=== PATIENT | female | born 1960 | race Caucasian/White ===

== ENCOUNTER 2018-10-06 16:06 | Inpatient (IN) | payer OTHER ==
--- OUTSIDE RECORDS SUMMARY | 2018-10-06 16:08 | XMS REPORT | Clinical Summary ---
:1960 Author Organization [facility] Address [address] [place] [address] Care Team Providers Name Role Phone Cierra Primary Care Provider Allergies Active Allergy Reactions Severity Noted Date Comments Chlorhexidine Itching High 07/27/2017 new Medical Supply, Miscellaneous Itching High 07/27/2017 New allergic reaction Medications Medication Sig Dispensed Refills Start Date End Date Status albuterol HFA Inhale 1 puff by 0 Active (VENTOLIN HFA) 90 mouth via inhaler mcg/actuation every 6 (six) inhaler hours as needed for Wheezing. thiamine (VITAMIN Take 100 mg by 0 Active B-1) 100 MG tablet mouth daily. folic acid (FOLVITE) Take 1 mg by 0 Active 1 MG tablet mouth daily. acetaminophen-codein Take 1 tablet by 30 tablet 0 08/01/2017 Active e (TYLENOL #3) mouth every 6 300-30 mg per tablet (six) hours as needed for Pain. Max Daily Amount: 4 tablets gabapentin Take 0.5 tablets 45 tablet 0 08/01/2017 Active (NEURONTIN) 800 MG (400 mg total) by tablet mouth 3 (three) times daily. metoprolol Take 1 tablet (25 60 tablet 0 08/01/2017 Active (LOPRESSOR) 25 MG mg total) by tablet mouth 2 (two) times daily. aspirin 81 MG Take 1 tablet (81 30 tablet 0 08/02/2017 08/02/2018 chewable tablet mg total) by mouth daily. atorvastatin Take 1 tablet (40 30 tablet 0 08/01/2017 08/01/2018 (LIPITOR) 40 MG mg total) by tablet mouth nightly. ferrous sulfate 325 Take 1 tablet 30 tablet 0 08/01/2017 08/01/2018 (65 FE) MG tablet (325 mg total) by mouth daily with breakfast You may take this over the counter if you wish. furosemide (LASIX) Take 1 tablet (20 30 tablet 0 08/02/2017 08/02/2018 20 MG tablet mg total) by mouth daily. potassium chloride Take 1 tablet (20 30 tablet 0 08/02/2017 08/02/2018 SA (K-DUR,KLOR-CON) mEq total) by 20 MEQ tablet mouth daily Take with food. Active Problems Problem Noted Date S/P CABG x 3 07/27/2017 Acute pulmonary insufficiency following thoracic surgery 07/27/2017 Postoperative anemia due to acute blood loss 07/27/2017 Acute pulmonary edema 07/27/2017 Atelectasis of both lungs 07/27/2017 ACBx3 (Dr. Grimes, 07.27.17) 07/26/2017 Social History Tobacco Use Types Packs/Day Years Used Date Never Assessed Sex Assigned at Date Recorded Not on file Job Start Date Occupation Industry Not on file Not on file Not on file Travel History Travel Start Travel End No recent travel history available. Last Filed Vital Signs Not on file Plan of Treatment Not on file Results Not on fileafter 10/05/2017 Insurance Payer Benefit Plan / Group Subscriber ID Type Phone Address [facility] x[facility]xxx H[facility]/POS [phone] CHOICE EXCHANGE ([place]) [place] [address] Advance Directives For more information, please contact:[address] [phone] Code Status Date Activated Date Inactivated Comments Full Code 07/26/2017 12:42 PM 08/01/2017 4:52 PM This code status was determined by: Patient Full Code 07/26/2017 1:51 AM 07/26/2017 12:42 PM This code status was determined by: Patient
--- OUTSIDE RECORDS SUMMARY | 2018-10-06 16:10 | XMS REPORT ---
:1960 Author Organization [facility] Address [address] [place] [address] Care Team Providers Name Role Phone JOSE A FLEMING Unavailable Unavailable Problems This patient has no known problems. Allergies, Adverse Reactions, Alerts This patient has no known allergies or adverse reactions. Medications This patient has no known medications. Results Test Description Test Time Test Comments Text Results Atomic Results Result Comments ADAM PAUL PA 2017-08-01 09:05:00 Reason for FINAL REPORT PATIENT ID: OR AP, 1 VIEW exam:->post-op [id number] Chest one view. Clinical history: post-op Comparison: July 28, 2017 Discussion: A frontal chest is provided. Cardiomediastinal contours are unchanged. Right IJ line has been removed. There is patchy retrocardiac opacity is slightly improved since the previous exam. A small left effusion is present. No pneumothorax. Signed: Hemant Paige Verified Date/Time: 08/01/2017 09:05:03 Reading Location: [facility] Radiology Reading Room ESIUM 2017-08-01 06:58:00 Test Item Value Reference Range Comments MAGNESIUM (BEAKER) (test xrcx=221) 1.8 mg/dL 1.6-2.6 CBC W/PLT COUNT & AUTO [id number] 05:44:00 Test Item Value Reference Range Comments WHITE BLOOD CELL COUNT (BEAKER) (test nech=855) 6.1 K/ L 3.5-10.5 RED BLOOD CELL COUNT (BEAKER) (test lxte=708) 2.67 M/ L 3.93-5.22 HEMOGLOBIN (BEAKER) (test pybi=735) 8.5 GM/DL 11.2-15.7 HEMATOCRIT (BEAKER) (test sfcg=878) 25.3 % 34.1-44.9 MEAN CORPUSCULAR VOLUME (BEAKER) (test sraf=816) 94.8 fL 79.4-94.8 MEAN CORPUSCULAR HEMOGLOBIN (BEAKER) (test 31.8 pg 25.6-32.2 aiau=667) MEAN CORPUSCULAR HEMOGLOBIN CONC (BEAKER) (test 33.6 GM/DL 32.2-35.5 leoz=124) RED CELL DISTRIBUTION WIDTH (BEAKER) (test 13.6 % 11.7-14.4 fbwd=923) PLATELET COUNT (BEAKER) (test urae=591) 329 K/CU MM 150-450 MEAN PLATELET VOLUME (BEAKER) (test ncwm=446) 10.2 fL 9.4-12.3 NUCLEATED RED BLOOD CELLS (BEAKER) (test 0 /100 WBC 0-0 umqu=618) NEUTROPHILS RELATIVE PERCENT (BEAKER) (test 72 % lztj=408) LYMPHOCYTES RELATIVE PERCENT (BEAKER) (test 18 % rpct=203) MONOCYTES RELATIVE PERCENT (BEAKER) (test 7 % nuqs=539) EOSINOPHILS RELATIVE PERCENT (BEAKER) (test 3 % okvm=902) BASOPHILS RELATIVE PERCENT (BEAKER) (test 0 % wczk=824) NEUTROPHILS ABSOLUTE COUNT (BEAKER) (test 4.39 K/ L 1.56-6.13 ejuf=170) LYMPHOCYTES ABSOLUTE COUNT (BEAKER) (test 1.11 K/ L 1.18-3.74 ybai=365) MONOCYTES ABSOLUTE COUNT (BEAKER) (test 0.42 K/ L 0.24-0.36 mpoq=903) EOSINOPHILS ABSOLUTE COUNT (BEAKER) (test 0.16 K/ L 0.04-0.36 obei=957) BASOPHILS ABSOLUTE COUNT (BEAKER) (test 0.02 K/ L 0.01-0.08 jfee=885) IMMATURE GRANULOCYTES-RELATIVE PERCENT (BEAKER) 0 % 0-1 (test qrtj=8976) CBC W/PLT COUNT & AUTO [id number] 07:13:00 Test Item Value Reference Range Comments WHITE BLOOD CELL COUNT (BEAKER) (test qncw=133) 7.0 K/ L 3.5-10.5 RED BLOOD CELL COUNT (BEAKER) (test gtgd=209) 2.61 M/ L 3.93-5.22 HEMOGLOBIN (BEAKER) (test mehw=191) 8.4 GM/DL 11.2-15.7 HEMATOCRIT (BEAKER) (test kxtp=464) 24.6 % 34.1-44.9 MEAN CORPUSCULAR VOLUME (BEAKER) (test ywwc=097) 94.3 fL 79.4-94.8 MEAN CORPUSCULAR HEMOGLOBIN (BEAKER) (test 32.2 pg 25.6-32.2 nhzb=747) MEAN CORPUSCULAR HEMOGLOBIN CONC (BEAKER) (test 34.1 GM/DL 32.2-35.5 zmlu=891) RED CELL DISTRIBUTION WIDTH (BEAKER) (test 13.7 % 11.7-14.4 dbsa=754) PLATELET COUNT (BEAKER) (test kqci=786) 322 K/CU MM 150-450 MEAN PLATELET VOLUME (BEAKER) (test jarr=281) 10.1 fL 9.4-12.3 NUCLEATED RED BLOOD CELLS (BEAKER) (test 0 /100 WBC 0-0 ctui=722) NEUTROPHILS RELATIVE PERCENT (BEAKER) (test 76 % yjnq=880) LYMPHOCYTES RELATIVE PERCENT (BEAKER) (test 14 % bwyw=413) MONOCYTES RELATIVE PERCENT (BEAKER) (test 7 % pcgf=809) EOSINOPHILS RELATIVE PERCENT (BEAKER) (test 3 % wujw=007) BASOPHILS RELATIVE PERCENT (BEAKER) (test 1 % gzmh=395) NEUTROPHILS ABSOLUTE COUNT (BEAKER) (test 5.26 K/ L 1.56-6.13 phua=831) LYMPHOCYTES ABSOLUTE COUNT (BEAKER) (test 0.98 K/ L 1.18-3.74 ixbg=583) MONOCYTES ABSOLUTE COUNT (BEAKER) (test 0.46 K/ L 0.24-0.36 hguh=188) EOSINOPHILS ABSOLUTE COUNT (BEAKER) (test 0.19 K/ L 0.04-0.36 zdah=439) BASOPHILS ABSOLUTE COUNT (BEAKER) (test 0.04 K/ L 0.01-0.08 qxjp=638) IMMATURE GRANULOCYTES-RELATIVE PERCENT (BEAKER) 0 % 0-1 (test ocxz=4167) [id number] 04:08:00 Test Item Value Reference Range Comments MAGNESIUM (BEAKER) (test vnno=963) 1.3 mg/dL 1.6-2.6 BASIC METABOLIC [id number] 04:08:00 Test Item Value Reference Range Comments SODIUM (BEAKER) (test 129 meq/L 136-145 oqwx=013) POTASSIUM (BEAKER) (test 3.8 meq/L 3.5-5.1 hfpf=674) CHLORIDE (BEAKER) (test 97 meq/L 98-107 ftwz=123) CO2 (BEAKER) (test 24 meq/L 22-29 qsxs=390) BLOOD UREA NITROGEN 8 mg/dL 7-21 (BEAKER) (test gtft=838) CREATININE (BEAKER) (test 0.73 mg/dL 0.57-1.25 xsaj=501) GLUCOSE RANDOM (BEAKER) 138 mg/dL 70-105 (test ubbq=280) CALCIUM (BEAKER) (test 8.7 mg/dL 8.4-10.2 zvhw=665) EGFR (BEAKER) (test 82 mL/min/1.73 sq m ESTIMATED GFR IS NOT ojuv=5719) ACCURATE CREATININE CLEARANCE IN PREDICTING GLOMERULAR FILTRATION RATE. ESTIMATED GFR IS NOT APPLICABLE FOR DIALYSIS PATIENTS. POCT-GLUCOSE [id number] 12:53:00 Test Item Value Reference Range Comments POC-GLUCOSE METER (BEAKER) 192 mg/dL 70-110 TESTED AT [address] (test kgkf=9357) [place] [id number] POCT-GLUCOSE [id number] 07:54:00 Test Item Value Reference Range Comments POC-GLUCOSE METER (BEAKER) 129 mg/dL 70-110 TESTED AT [address] (test sjgp=2436) [facility] [address] BASIC METABOLIC [id number] 05:37:00 Test Item Value Reference Range Comments SODIUM (BEAKER) (test 129 meq/L 136-145 tivp=833) POTASSIUM (BEAKER) (test 3.2 meq/L 3.5-5.1 gsry=536) CHLORIDE (BEAKER) (test 96 meq/L 98-107 ndjg=132) CO2 (BEAKER) (test 24 meq/L 22-29 kvfs=399) BLOOD UREA NITROGEN 10 mg/dL 7-21 (BEAKER) (test vish=558) CREATININE (BEAKER) (test 0.79 mg/dL 0.57-1.25 hfol=451) GLUCOSE RANDOM (BEAKER) 119 mg/dL 70-105 (test zkdk=204) CALCIUM (BEAKER) (test 8.9 mg/dL 8.4-10.2 rjds=831) EGFR (BEAKER) (test 75 mL/min/1.73 sq m ESTIMATED GFR IS NOT bcpa=7865) ACCURATE CREATININE CLEARANCE IN PREDICTING GLOMERULAR FILTRATION RATE. ESTIMATED GFR IS NOT APPLICABLE FOR DIALYSIS PATIENTS. CBC W/PLT COUNT & AUTO [id number] 05:07:00 Test Item Value Reference Range Comments WHITE BLOOD CELL COUNT (BEAKER) (test mdkw=034) 7.6 K/ L 3.5-10.5 RED BLOOD CELL COUNT (BEAKER) (test honu=687) 2.48 M/ L 3.93-5.22 HEMOGLOBIN (BEAKER) (test rzfm=557) 7.8 GM/DL 11.2-15.7 HEMATOCRIT (BEAKER) (test ailj=060) 22.9 % 34.1-44.9 MEAN CORPUSCULAR VOLUME (BEAKER) (test txfa=529) 92.3 fL 79.4-94.8 MEAN CORPUSCULAR HEMOGLOBIN (BEAKER) (test 31.5 pg 25.6-32.2 brwn=650) MEAN CORPUSCULAR HEMOGLOBIN CONC (BEAKER) (test 34.1 GM/DL 32.2-35.5 hosc=209) RED CELL DISTRIBUTION WIDTH (BEAKER) (test 14.0 % 11.7-14.4 zkcc=608) PLATELET COUNT (BEAKER) (test igcz=397) 286 K/CU MM 150-450 MEAN PLATELET VOLUME (BEAKER) (test ojhn=634) 10.1 fL 9.4-12.3 NUCLEATED RED BLOOD CELLS (BEAKER) (test 0 /100 WBC 0-0 mmst=941) NEUTROPHILS RELATIVE PERCENT (BEAKER) (test 76 % lead=218) LYMPHOCYTES RELATIVE PERCENT (BEAKER) (test 13 % qyow=706) MONOCYTES RELATIVE PERCENT (BEAKER) (test 8 % hwpd=509) EOSINOPHILS RELATIVE PERCENT (BEAKER) (test 2 % duoj=747) BASOPHILS RELATIVE PERCENT (BEAKER) (test 1 % ijhe=458) NEUTROPHILS ABSOLUTE COUNT (BEAKER) (test 5.75 K/ L 1.56-6.13 tnhc=543) LYMPHOCYTES ABSOLUTE COUNT (BEAKER) (test 0.98 K/ L 1.18-3.74 ctjp=330) MONOCYTES ABSOLUTE COUNT (BEAKER) (test 0.64 K/ L 0.24-0.36 fliy=781) EOSINOPHILS ABSOLUTE COUNT (BEAKER) (test 0.16 K/ L 0.04-0.36 lwta=003) BASOPHILS ABSOLUTE COUNT (BEAKER) (test 0.04 K/ L 0.01-0.08 sihq=533) IMMATURE GRANULOCYTES-RELATIVE PERCENT (BEAKER) 1 % 0-1 (test xfyj=4186) POCT-GLUCOSE [id number] 21:03:00 Test Item Value Reference Range Comments POC-GLUCOSE METER (BEAKER) 239 mg/dL 70-110 TESTED AT [address] (test vvsm=1661) [place] [address] POCT-GLUCOSE [id number] 17:20:00 Test Item Value Reference Range Comments POC-GLUCOSE METER (BEAKER) 201 mg/dL 70-110 TESTED AT [address] (test rocm=5093) [place] [address] HEMOGLOBIN AND [id number] 16:41:00 Test Item Value Reference Range Comments HEMOGLOBIN (BEAKER) (test esob=466) 9.8 GM/DL 11.2-15.7 HEMATOCRIT (BEAKER) (test xslr=087) 29.3 % 34.1-44.9 Draw after transfusion has been completed.POCT-GLUCOSE [id number] 12:59:00 Test Item Value Reference Range Comments POC-GLUCOSE METER (BEAKER) 133 mg/dL 70-110 TESTED AT [address] (test mcae=0460) [place] [address] URINE [id number] 11:53:00 Test Item Value Reference Range Comments CULTURE (BEAKER) (test nkcx=3110) No growth POCT-GLUCOSE [id number] 09:34:00 Test Item Value Reference Range Comments POC-GLUCOSE METER (BEAKER) 97 mg/dL 70-110 TESTED AT [address] (test vcff=9803) [place] [address] CBC W/PLT COUNT & AUTO [id number] 05:55:00 Test Item Value Reference Range Comments WHITE BLOOD CELL COUNT (BEAKER) (test iohu=658) 9.1 K/ L 3.5-10.5 RED BLOOD CELL COUNT (BEAKER) (test vtdx=200) 2.11 M/ L 3.93-5.22 HEMOGLOBIN (BEAKER) (test stba=678) 6.8 GM/DL 11.2-15.7 HEMATOCRIT (BEAKER) (test symq=216) 20.2 % 34.1-44.9 MEAN CORPUSCULAR VOLUME (BEAKER) (test spqo=348) 95.7 fL 79.4-94.8 MEAN CORPUSCULAR HEMOGLOBIN (BEAKER) (test 32.2 pg 25.6-32.2 zypz=496) MEAN CORPUSCULAR HEMOGLOBIN CONC (BEAKER) (test 33.7 GM/DL 32.2-35.5 pbqi=056) RED CELL DISTRIBUTION WIDTH (BEAKER) (test 13.7 % 11.7-14.4 sfza=338) PLATELET COUNT (BEAKER) (test msbe=407) 280 K/CU MM 150-450 MEAN PLATELET VOLUME (BEAKER) (test nujs=410) 10.3 fL 9.4-12.3 NUCLEATED RED BLOOD CELLS (BEAKER) (test 0 /100 WBC 0-0 dwpb=842) NEUTROPHILS RELATIVE PERCENT (BEAKER) (test 77 % cywe=741) LYMPHOCYTES RELATIVE PERCENT (BEAKER) (test 11 % tphc=558) MONOCYTES RELATIVE PERCENT (BEAKER) (test 10 % qaxy=894) EOSINOPHILS RELATIVE PERCENT (BEAKER) (test 2 % rtke=658) BASOPHILS RELATIVE PERCENT (BEAKER) (test 0 % ahwh=674) NEUTROPHILS ABSOLUTE COUNT (BEAKER) (test 7.01 K/ L 1.56-6.13 sxed=130) LYMPHOCYTES ABSOLUTE COUNT (BEAKER) (test 0.98 K/ L 1.18-3.74 gfbn=804) MONOCYTES ABSOLUTE COUNT (BEAKER) (test 0.89 K/ L 0.24-0.36 ynkj=915) EOSINOPHILS ABSOLUTE COUNT (BEAKER) (test 0.19 K/ L 0.04-0.36 dzlt=598) BASOPHILS ABSOLUTE COUNT (BEAKER) (test 0.01 K/ L 0.01-0.08 bnuh=594) IMMATURE GRANULOCYTES-RELATIVE PERCENT (BEAKER) 1 % 0-1 (test badj=5542) BASIC METABOLIC [id number] 05:53:00 Test Item Value Reference Range Comments SODIUM (BEAKER) (test 129 meq/L 136-145 jkgh=760) POTASSIUM (BEAKER) (test 3.4 meq/L 3.5-5.1 iico=885) CHLORIDE (BEAKER) (test 96 meq/L 98-107 butt=446) CO2 (BEAKER) (test 22 meq/L 22-29 zvmt=991) BLOOD UREA NITROGEN 12 mg/dL 7-21 (BEAKER) (test ujun=328) CREATININE (BEAKER) (test 0.74 mg/dL 0.57-1.25 qigc=455) GLUCOSE RANDOM (BEAKER) 86 mg/dL 70-105 (test mfyq=688) CALCIUM (BEAKER) (test 9.2 mg/dL 8.4-10.2 kcsu=986) EGFR (BEAKER) (test 81 mL/min/1.73 sq m ESTIMATED GFR IS NOT eich=3303) ACCURATE CREATININE CLEARANCE IN PREDICTING GLOMERULAR FILTRATION RATE. ESTIMATED GFR IS NOT APPLICABLE FOR DIALYSIS PATIENTS. POCT-GLUCOSE [id number] 21:23:00 Test Item Value Reference Range Comments POC-GLUCOSE METER (BEAKER) 142 mg/dL 70-110 TESTED AT [address] (test koyg=7990) [facility] [address] RAD, CHEST, 1 VIEW, NON [id number] 15:31:00Reason for exam:->post ct removalFINAL REPORT TECHNIQUE: Frontal chest radiograph dated 07/28/2017. CLINICAL HISTORY: Post CT removal COMPARISON STUDY: Chest radiograph performed earlier the same day IMPRESSION:Left-sided chest tubes been removed. Right internal jugular venous catheter is unchanged. There is atubular structure projected over the right axilla, possibly a PICC. Left lung base opacity and pleural effusion are stable. No pneumothorax. Cardiomediastinal silhouette is normal in size. No pulmonaryedema. Midline sternotomy wires are intact and well aligned. Degenerative changes are seen in the spine. Signed: Alejandra Luiseport Verified Date/Time: 07/28/2017 15:31:00 Reading Location: [facility] Radiology Reading Room POCT-GLUCOSE [id number] 12:12:00 Test Item Value Reference Range Comments POC-GLUCOSE METER (BEAKER) 100 mg/dL 70-[address] [facility] [address] [facility] (test atuc=6144) [facility] [address] POCT-GLUCOSE [id number] 06:41:00 Test Item Value Reference Range Comments POC-GLUCOSE METER (BEAKER) 143 mg/dL 70-[address] [facility] [address] [facility] (test aozv=0803) [facility] [address] RAD, CHEST, 1 VIEW, NON [id number] 05:13:00Reason for exam:->Post opShould this be performed at the bedside?->YesFINAL REPORT RAD, CHEST, 1 VIEW, NON DEPT INDICATION: Post op COMPARISON: Prior day' s exam FINDINGS: Portable frontal view of the chest. IMPRESSION: Support Lines: Interval extubation and removal of enteric tube. Remaining support hardware is stable. Lungs and pleura: Decreased lung volumes resulting in basilar subsegmental atelectasis and central vascular crowding. No new focal or lobar consolidation. Trace left effusion. Questionable trace left apical pneumothorax.Heart and mediastinum: Stable contours. Stable surgical changes.Additional findings: None. Signed: JR Fernandes Robert MDReport Verified Date/Time: 07/28/2017 05:13:19 Reading Location: [address] Body Reading Room BLOOD GAS, [id number] 05:03:00 Test Item Value Reference Range Comments PH ARTERIAL (BEAKER) (test puba=716) 7.39 7.35-7.45 PCO2 ARTERIAL (BEAKER) (test wqpf=481) 39 mmHg 35-45 PO2 ARTERIAL (BEAKER) (test gqkf=224) 105 mmHg 80-90 O2 SATURATION ARTERIAL (BEAKER) (test gqye=100) 97.9 % 96.0-97.0 HCO3 ARTERIAL (BEAKER) (test tbax=849) 23 mmol/L 21-29 BASE EXCESS ARTERIAL (BEAKER) (test abht=955) -1.8 mmol/L -2.0-3.0 PATIENT TEMPERATURE (BEAKER) (test qglp=8939) 36.6 C FIO2 (BEAKER) (test zphf=1375) 36.0 % [id number] 04:52:00 Test Item Value Reference Range Comments PROTIME (BEAKER) (test ulyy=219) 14.9 seconds 11.7-14.7 INR (BEAKER) (test wxxm=699) 1.2 <=5.9 PARTIAL THROMBOPLASTIN TIME (BEAKER) (test 36.9 seconds 22.5-36.0 afxy=064) RECOMMENDED COUMADIN/WARFARIN INR THERAPY RANGESSTANDARD DOSE: 2.0 - 3.0 Includes: PROPHYLAXIS forvenous thrombosis, systemic embolization; TREATMENT for venous thrombosis and/or pulmonary embolus.HIGH RISK: Target INR is 2.5-3.5 for patients with mechanical heart valves.[id number] 04:39:00 Test Item Value Reference Range Comments MAGNESIUM (BEAKER) (test tdfy=210) 1.9 mg/dL 1.6-2.6 BASIC METABOLIC [id number] 04:39:00 Test Item Value Reference Range Comments SODIUM (BEAKER) (test 134 meq/L 136-145 ncuk=541) POTASSIUM (BEAKER) (test 4.0 meq/L 3.5-5.1 hzrg=186) CHLORIDE (BEAKER) (test 103 meq/L 98-107 tssp=020) CO2 (BEAKER) (test 23 meq/L 22-29 ugjc=060) BLOOD UREA NITROGEN 14 mg/dL 7-21 (BEAKER) (test hdih=810) CREATININE (BEAKER) (test 0.81 mg/dL 0.57-1.25 stcx=711) GLUCOSE RANDOM (BEAKER) 148 mg/dL 70-105 (test zwxy=926) CALCIUM (BEAKER) (test 9.4 mg/dL 8.4-10.2 pkhx=951) EGFR (BEAKER) (test 73 mL/min/1.73 sq m ESTIMATED GFR IS NOT fkhs=5398) ACCURATE CREATININE CLEARANCE IN PREDICTING GLOMERULAR FILTRATION RATE. ESTIMATED GFR IS NOT APPLICABLE FOR DIALYSIS PATIENTS. CBC W/PLT COUNT & AUTO [id number] 04:24:00 Test Item Value Reference Range Comments WHITE BLOOD CELL COUNT (BEAKER) (test doof=625) 7.9 K/ L 3.5-10.5 RED BLOOD CELL COUNT (BEAKER) (test cfxh=945) 2.49 M/ L 3.93-5.22 HEMOGLOBIN (BEAKER) (test styb=855) 7.9 GM/DL 11.2-15.7 HEMATOCRIT (BEAKER) (test vjay=400) 23.6 % 34.1-44.9 MEAN CORPUSCULAR VOLUME (BEAKER) (test wmca=993) 94.8 fL 79.4-94.8 MEAN CORPUSCULAR HEMOGLOBIN (BEAKER) (test 31.7 pg 25.6-32.2 wswt=669) MEAN CORPUSCULAR HEMOGLOBIN CONC (BEAKER) (test 33.5 GM/DL 32.2-35.5 zicg=533) RED CELL DISTRIBUTION WIDTH (BEAKER) (test 15.1 % 11.7-14.4 sksa=198) PLATELET COUNT (BEAKER) (test cfea=509) 284 K/CU MM 150-450 MEAN PLATELET VOLUME (BEAKER) (test xskf=451) 10.1 fL 9.4-12.3 NUCLEATED RED BLOOD CELLS (BEAKER) (test 0 /100 WBC 0-0 oatr=230) NEUTROPHILS RELATIVE PERCENT (BEAKER) (test 77 % soat=355) LYMPHOCYTES RELATIVE PERCENT (BEAKER) (test 8 % zvxz=143) MONOCYTES RELATIVE PERCENT (BEAKER) (test 14 % gwzk=683) EOSINOPHILS RELATIVE PERCENT (BEAKER) (test 1 % cgqr=540) BASOPHILS RELATIVE PERCENT (BEAKER) (test 0 % tuwa=758) NEUTROPHILS ABSOLUTE COUNT (BEAKER) (test 6.04 K/ L 1.56-6.13 fwru=643) LYMPHOCYTES ABSOLUTE COUNT (BEAKER) (test 0.62 K/ L 1.18-3.74 xknu=861) MONOCYTES ABSOLUTE COUNT (BEAKER) (test 1.12 K/ L 0.24-0.36 pizn=028) EOSINOPHILS ABSOLUTE COUNT (BEAKER) (test 0.04 K/ L 0.04-0.36 rlfo=357) BASOPHILS ABSOLUTE COUNT (BEAKER) (test 0.02 K/ L 0.01-0.08 bjqn=510) IMMATURE GRANULOCYTES-RELATIVE PERCENT (BEAKER) 0 % 0-1 (test aeiq=7671) [id number] 01:03:00 Test Item Value Reference Range Comments POTASSIUM (BEAKER) (test qpah=952) 4.0 meq/L 3.5-5.1 [id number] 01:03:00 Test Item Value Reference Range Comments MAGNESIUM (BEAKER) (test wgaa=885) 2.0 mg/dL 1.6-2.6 POCT-GLUCOSE [id number] 01:01:00 Test Item Value Reference Range Comments POC-GLUCOSE METER (BEAKER) 150 mg/dL 70-110 TESTED AT [address] (test bfaz=0428) [facility] [address] HEMOGLOBIN AND [id number] 00:51:00 Test Item Value Reference Range Comments HEMOGLOBIN (BEAKER) (test qvap=897) 8.3 GM/DL 11.2-15.7 HEMATOCRIT (BEAKER) (test nejg=810) 24.0 % 34.1-44.9 CALCIUM, [id number] 00:48:00 Test Item Value Reference Range Comments CALCIUM IONIZED (BEAKER) (test oppy=112) 1.25 mmol/L 1.12-1.27 PH, BLOOD (BEAKER) (test hebi=3426) 7.39 BLOOD GAS, [id number] 20:03:00 Test Item Value Reference Range Comments PH ARTERIAL (BEAKER) (test gblg=012) 7.41 7.35-7.45 PCO2 ARTERIAL (BEAKER) (test tptm=730) 37 mmHg 35-45 PO2 ARTERIAL (BEAKER) (test ldhr=017) 103 mmHg 80-90 O2 SATURATION ARTERIAL (BEAKER) (test gvhg=024) 97.8 % 96.0-97.0 HCO3 ARTERIAL (BEAKER) (test jpeb=887) 23 mmol/L 21-29 BASE EXCESS ARTERIAL (BEAKER) (test qaio=095) -1.8 mmol/L -2.0-3.0 PATIENT TEMPERATURE (BEAKER) (test ncfr=9165) 36.7 C FIO2 (BEAKER) (test yqpq=3508) 32.0 % POCT-GLUCOSE [id number] 18:26:00 Test Item Value Reference Range Comments POC-GLUCOSE METER (BEAKER) 169 mg/dL 70-110 TESTED AT [address] (test frgj=4690) [facility] [address] BLOOD GAS, [id number] 16:32:00 Test Item Value Reference Range Comments PH ARTERIAL (BEAKER) (test gezq=589) 7.45 7.35-7.45 PCO2 ARTERIAL (BEAKER) (test shap=649) 32 mmHg 35-45 PO2 ARTERIAL (BEAKER) (test opxo=608) 155 mmHg 80-90 O2 SATURATION ARTERIAL (BEAKER) (test vkco=433) 99.1 % 96.0-97.0 HCO3 ARTERIAL (BEAKER) (test yofd=139) 22 mmol/L 21-29 BASE EXCESS ARTERIAL (BEAKER) (test saqk=154) -1.6 mmol/L -2.0-3.0 PATIENT TEMPERATURE (BEAKER) (test ynyk=8238) 36.7 C FIO2 (BEAKER) (test pgjl=2846) 40.0 % HEMOGLOBIN AND [id number] 15:45:00 Test Item Value Reference Range Comments HEMOGLOBIN (BEAKER) (test idhm=376) 8.9 GM/DL 11.2-15.7 HEMATOCRIT (BEAKER) (test sjdj=848) 25.6 % 34.1-44.9 FACTOR 10 [id number] 15:30:00 Test Item Value Reference Range Comments FACTOR X ACTIVITY (BEAKER) (test ropx=254) 79.0 % 70.0-120.0 [id number] 13:47:00 Test Item Value Reference Range Comments FIBRINOGEN LEVEL (BEAKER) (test puqk=489) 567 mg/dl 225-434 PROTHROMBIN TIME/[id number] 13:47:00 Test Item Value Reference Range Comments PROTIME (BEAKER) (test ohuy=050) 17.5 seconds 11.7-14.7 INR (BEAKER) (test bzpo=680) 1.4 <=5.9 RECOMMENDED COUMADIN/WARFARIN INR THERAPY RANGESSTANDARD DOSE: 2.0 - 3.0 Includes: PROPHYLAXIS forvenous thrombosis, systemic embolization; TREATMENT for venous thrombosis and/or pulmonary embolus.HIGH RISK: Target INR is 2.5-3.5 for patients with mechanical heart valves.[id number] 13:47:00 Test Item Value Reference Range Comments PARTIAL THROMBOPLASTIN TIME (BEAKER) (test 35.0 seconds 22.5-36.0 tiyn=906) RAD, CHEST, 1 VIEW, NON [id number] 13:16:00Reason for exam:->Post OpShould this be performed at the bedside?->YesFINAL REPORT Chest one view. Clinical history: Post Op Comparison: July 27, 2017 Discussion: A frontal chest is provided. Cardiomediastinal contours are unchanged. ETT is 3.5 cm above the joe. A feeding tube projects below the diaphragm. Right IJ line projects over theSVC. There is a left chest tube, and a mediastinal drain. Small patchy foci of opacities at the leftmid to lower lung likely reflects atelectasis. Right lung is clear. No vascular congestion, pneumothorax, or significant effusion. Status post median sternotomy. Signed: Hemant Paige MDReport Verified Date/Time: 07/27/2017 13:16:03 Reading Location: [address] Consult Reading Room Electronicallysigned by: HEMANT PAIGE M.D. on 07/27/2017 01:16 PMTHROMBOELASTOGRAPH (TEG)2017-07-27 12:58:00 Test Item Value Reference Range Comments TEG ACTIVATED CLOTTING TIME (BEAKER) (test 4.5 minutes 4.0-7.0 ewio=6574) TEG FIBRINOGEN ACTIVITY (BEAKER) (test 77.4 degrees 61.0-73.0 bzdl=4763) TEG PLT. AGGREGATION (BEAKER) (test okho=0696) 76.9 MM 55.0-65.0 TEG FIBRINOLYSIS (BEAKER) (test rjmg=0973) 0.0 % 0.0-5.0 TGH ACTIVATED CLOTTING TIME (BEAKER) (test 4.3 minutes 4.0-7.0 xgro=9047) [facility] FIBRINOGEN ACTIVITY (BEAKER) (test 75.7 degrees 61.0-73.0 ghst=2601) T[facility] PLT. AGGREGATION (BEAKER) (test lums=9408) 73.8 MM 55.0-65.0 [facility] FIBRINOLYSIS (BEAKER) (test mjys=9495) 0.0 % 0.0-5.0 CBC W/PLT COUNT & AUTO [id number] 12:37:00 Test Item Value Reference Range Comments WHITE BLOOD CELL COUNT (BEAKER) (test wxhb=549) 13.7 K/ L 3.5-10.5 RED BLOOD CELL COUNT (BEAKER) (test rffd=410) 2.29 M/ L 3.93-5.22 HEMOGLOBIN (BEAKER) (test fluj=597) 7.8 GM/DL 11.2-15.7 HEMATOCRIT (BEAKER) (test ahhg=357) 22.5 % 34.1-44.9 MEAN CORPUSCULAR VOLUME (BEAKER) (test ozjv=349) 98.3 fL 79.4-94.8 MEAN CORPUSCULAR HEMOGLOBIN (BEAKER) (test 34.1 pg 25.6-32.2 dmku=426) MEAN CORPUSCULAR HEMOGLOBIN CONC (BEAKER) (test 34.7 GM/DL 32.2-35.5 baok=552) RED CELL DISTRIBUTION WIDTH (BEAKER) (test 13.6 % 11.7-14.4 nuds=414) PLATELET COUNT (BEAKER) (test bhml=659) 295 K/CU MM 150-450 MEAN PLATELET VOLUME (BEAKER) (test nwup=123) 9.8 fL 9.4-12.3 NUCLEATED RED BLOOD CELLS (BEAKER) (test 0 /100 WBC 0-0 nawz=952) NEUTROPHILS RELATIVE PERCENT (BEAKER) (test 87 % iuoa=853) LYMPHOCYTES RELATIVE PERCENT (BEAKER) (test 8 % sqsu=743) MONOCYTES RELATIVE PERCENT (BEAKER) (test 4 % sjdq=936) EOSINOPHILS RELATIVE PERCENT (BEAKER) (test 1 % iios=655) BASOPHILS RELATIVE PERCENT (BEAKER) (test 0 % jxcs=313) NEUTROPHILS ABSOLUTE COUNT (BEAKER) (test 11.94 K/ L 1.56-6.13 xgdf=383) LYMPHOCYTES ABSOLUTE COUNT (BEAKER) (test 1.03 K/ L 1.18-3.74 wxbz=633) MONOCYTES ABSOLUTE COUNT (BEAKER) (test 0.48 K/ L 0.24-0.36 fgdi=625) EOSINOPHILS ABSOLUTE COUNT (BEAKER) (test 0.08 K/ L 0.04-0.36 ykjq=271) BASOPHILS ABSOLUTE COUNT (BEAKER) (test 0.02 K/ L 0.01-0.08 tijd=456) IMMATURE GRANULOCYTES-RELATIVE PERCENT (BEAKER) 1 % 0-1 (test kkcn=5473) [id number] 12:19:00 Test Item Value Reference Range Comments MAGNESIUM (BEAKER) (test ktpr=316) 2.9 mg/dL 1.6-2.6 COMPREHENSIVE METABOLIC [id number] 12:19:00 Test Item Value Reference Range Comments TOTAL PROTEIN (BEAKER) 5.7 gm/dL 6.0-8.3 (test wfdb=865) ALBUMIN (BEAKER) (test 3.1 g/dL 3.5-5.0 itve=0236) ALKALINE PHOSPHATASE 69 U/L 40-150 (BEAKER) (test usxe=682) BILIRUBIN TOTAL (BEAKER) 0.9 mg/dL 0.2-1.2 (test bsnb=745) SODIUM (BEAKER) (test 134 meq/L 136-145 gqwk=359) POTASSIUM (BEAKER) (test 4.7 meq/L 3.5-5.1 zusu=355) CHLORIDE (BEAKER) (test 101 meq/L 98-107 wnnf=135) CO2 (BEAKER) (test 22 meq/L 22-29 qgxm=810) BLOOD UREA NITROGEN 12 mg/dL 7-21 (BEAKER) (test zpcx=928) CREATININE (BEAKER) (test 0.77 mg/dL 0.57-1.25 kmys=265) GLUCOSE RANDOM (BEAKER) 200 mg/dL 70-105 (test dmmi=280) CALCIUM (BEAKER) (test 10.8 mg/dL 8.4-10.2 ujax=048) AST (SGOT) (BEAKER) (test 32 U/L 5-34 tsag=971) ALT (SGPT) (BEAKER) (test 34 U/L 6-55 uzzo=867) EGFR (BEAKER) (test 77 mL/min/1.73 sq m ESTIMATED GFR IS NOT zybp=3473) ACCURATE CREATININE CLEARANCE IN PREDICTING GLOMERULAR FILTRATION RATE. ESTIMATED GFR IS NOT APPLICABLE FOR DIALYSIS PATIENTS. LACTIC ACID, ARTERIAL, WHOLE [id number] 12:14:00 Test Item Value Reference Range Comments LACTATE BLOOD ARTERIAL (2) (BEAKER) (test 0.9 mmol/L 0.5-2.2 yxdr=8578) Effective 12/31/2015: Units/Reference Range ChangeNew: 0.5-2.2 mmol/L Previous: 5 -20 mg/dLOXYGEN SATURATION, [id number] 11:46:00 Test Item Value Reference Range Comments O2 SATURATION (MEASURED) (BEAKER) (test gvpq=7138) 81.7 % BLOOD GAS, [id number] 11:44:00 Test Item Value Reference Range Comments PH ARTERIAL (BEAKER) (test xhnz=918) 7.46 7.35-7.45 PCO2 ARTERIAL (BEAKER) (test fpjy=113) 33 mmHg 35-45 PO2 ARTERIAL (BEAKER) (test nbsp=385) 221 mmHg 80-90 O2 SATURATION ARTERIAL (BEAKER) (test gbcz=688) 99.5 % 96.0-97.0 HCO3 ARTERIAL (BEAKER) (test wttl=594) 23 mmol/L 21-29 BASE EXCESS ARTERIAL (BEAKER) (test akvj=321) -0.9 mmol/L -2.0-3.0 PATIENT TEMPERATURE (BEAKER) (test sedi=9551) 34.2 C FIO2 (BEAKER) (test iizc=3792) 60.0 % SODIUM NA-STAT [id number] 11:44:00 Test Item Value Reference Range Comments SODIUM (BEAKER) (test qpkr=493) 130 meq/L 135-148 GLUCOSE-STAT [id number] 11:44:00 Test Item Value Reference Range Comments GLUCOSE RANDOM (BEAKER) (test pklw=083) 194 mg/dL 70-110 HGB/HCT (H&H) - STAT [id number] 11:44:00 Test Item Value Reference Range Comments HEMOGLOBIN (BEAKER) (test ygtj=479) 8.1 g/dL 12.0-15.0 HEMATOCRIT (BEAKER) (test beff=140) 24.0 % 36.0-45.0 FILTER IONIZED [id number] 11:44:00 Test Item Value Reference Range Comments FILTER IONIZED CALCIUM (BEAKER) (test uwta=1987) 1.35 nnol/L Reference Range: No NormalsPOTASSIUM-STAT [id number] 11:43:00 Test Item Value Reference Range Comments POTASSIUM (BEAKER) (test axbj=287) 4.5 meq/L 3.6-5.5 THROMBOELASTOGRAPH (TEG)[id number] 11:29:00 Test Item Value Reference Range Comments TEG ACTIVATED CLOTTING TIME (BEAKER) (test 6.9 minutes 4.0-7.0 adjl=8915) TEG FIBRINOGEN ACTIVITY (BEAKER) (test 69.8 degrees 61.0-73.0 tymj=9719) TEG PLT. AGGREGATION (BEAKER) (test oapt=2573) 50.7 MM 55.0-65.0 TGH ACTIVATED CLOTTING TIME (BEAKER) (test 7.4 minutes 4.0-7.0 qnhh=6973) TGH FIBRINOGEN ACTIVITY (BEAKER) (test 77.9 degrees 61.0-73.0 obhm=2492) TGH PLT. AGGREGATION (BEAKER) (test donh=0469) 58.6 MM 55.0-65.0 PLATELET [id number] 11:08:00 Test Item Value Reference Range Comments PLATELET COUNT (BEAKER) (test pwdd=554) 142 K/CU MM 150-450 CALCIUM, [id number] 10:35:00 Test Item Value Reference Range Comments CALCIUM IONIZED (BEAKER) (test psom=853) 0.91 mmol/L 1.12-1.27 PH, BLOOD (BEAKER) (test ylpz=0115) 7.31 BLOOD GAS, [id number] 10:35:00 Test Item Value Reference Range Comments PH ARTERIAL (BEAKER) (test vfjm=466) 7.34 7.35-7.45 PCO2 ARTERIAL (BEAKER) (test srpa=936) 41 mmHg 35-45 PO2 ARTERIAL (BEAKER) (test svft=082) 204 mmHg 80-90 O2 SATURATION ARTERIAL (BEAKER) (test dvvb=340) 99.3 % 96.0-97.0 HCO3 ARTERIAL (BEAKER) (test ifcv=614) 22 mmol/L 21-29 BASE EXCESS ARTERIAL (BEAKER) (test zhjj=738) -3.8 mmol/L -2.0-3.0 PATIENT TEMPERATURE (BEAKER) (test ywoi=0563) 35.0 C FIO2 (BEAKER) (test akwc=8900) 100.0 % SODIUM NA-STAT [id number] 10:35:00 Test Item Value Reference Range Comments SODIUM (BEAKER) (test htbt=685) 130 meq/L 135-148 GLUCOSE-STAT [id number] 10:35:00 Test Item Value Reference Range Comments GLUCOSE RANDOM (BEAKER) (test xywb=230) 194 mg/dL 70-110 HGB/HCT (H&H) - STAT [id number] 10:35:00 Test Item Value Reference Range Comments HEMOGLOBIN ([facility]) (test lwfi=261) 10.3 g/dL 12.0-15.0 HEMATOCRIT ([facility]) (test vlzu=384) 30.0 % 36.0-45.0 POTASSIUM-STAT [id number] 10:34:00 Test Item Value Reference Range Comments POTASSIUM ([facility]) (test vppp=006) 5.1 meq/L 3.6-5.5 [id number] 10:26:00 Test Item Value Reference Range Comments ACTIVATED CLOTTING TIME 131 sec TESTED AT [address] ([facility]) (test xwac=991) [place] [address] [id number] 10:26:00 Test Item Value Reference Range Comments ACTIVATED CLOTTING TIME 521 sec TESTED AT [address] ([facility]) (test fxjv=923) [place] [address] [id number] 10:26:00 Test Item Value Reference Range Comments ACTIVATED CLOTTING TIME 521 sec TESTED AT [address] ([facility]) (test mnce=131) [place] [address] [id number] 10:26:00 Test Item Value Reference Range Comments ACTIVATED CLOTTING TIME 505 sec TESTED AT [address] ([facility]) (test afut=771) [place] [address] [id number] 10:17:00 Test Item Value Reference Range Comments FIBRINOGEN LEVEL ([facility]) (test svbd=273) 536 mg/dl 225-434 [id number] 10:17:00 Test Item Value Reference Range Comments PARTIAL THROMBOPLASTIN TIME ([facility]) (test 38.7 seconds 22.5-36.0 uwce=188) PROTHROMBIN [id number] 10:16:00 Test Item Value Reference Range Comments PROTIME ([facility]) (test cdoi=836) 18.8 seconds 11.7-14.7 INR ([facility]) (test nivb=086) 1.6 <=5.9 RECOMMENDED COUMADIN/WARFARIN INR THERAPY RANGESSTANDARD DOSE: 2.0 - 3.0 Includes: PROPHYLAXIS forvenous thrombosis, systemic embolization; TREATMENT for venous thrombosis and/or pulmonary embolus.HIGH RISK: Target INR is 2.5-3.5 for patients with mechanical heart valves.PLATELET AGGREGATION: FUNCTION [id number] 10:14:00 Test Item Value Reference Range Comments WEAK ADP RESULT(BEAKER) (test 51 % 60-91 mdpj=8840) PLATELET FUNCTION SCREEN 50-59% indicates mild platelet INTERP (BEAKER) (test dysfunction nxcf=8581) [id number] Yuri Quijano M.D. (electonic (BEAKER) (test pcfg=0217) signature) PLATELET COUNT AGG (BEAKER) 410 K/CU MM 150-450 (test pdta=1466) for patients on clopidogrel in past two weeksCALCIUM, [id number] 09:46:00 Test Item Value Reference Range Comments CALCIUM IONIZED (BEAKER) (test ojbf=360) 1.41 mmol/L 1.12-1.27 PH, BLOOD (BEAKER) (test phdn=8310) 7.30 BLOOD GAS, [id number] 09:45:00 Test Item Value Reference Range Comments PH ARTERIAL (BEAKER) (test vaoe=330) 7.32 7.35-7.45 PCO2 ARTERIAL (BEAKER) (test uahg=957) 42 mmHg 35-45 PO2 ARTERIAL (BEAKER) (test rcri=237) 438 mmHg 80-90 O2 SATURATION ARTERIAL (BEAKER) (test tjqe=324) 99.8 % 96.0-97.0 HCO3 ARTERIAL (BEAKER) (test ojhb=856) 21 mmol/L 21-29 BASE EXCESS ARTERIAL (BEAKER) (test vqxe=457) -4.9 mmol/L -2.0-3.0 PATIENT TEMPERATURE (BEAKER) (test pbxe=1330) 35.6 C FIO2 (BEAKER) (test dtzb=5004) 100.0 % SODIUM NA-STAT [id number] 09:45:00 Test Item Value Reference Range Comments SODIUM (BEAKER) (test uzvx=212) 124 meq/L 135-148 POTASSIUM-STAT [id number] 09:45:00 Test Item Value Reference Range Comments POTASSIUM (BEAKER) (test lcaw=284) 5.8 meq/L 3.6-5.5 GLUCOSE-STAT [id number] 09:45:00 Test Item Value Reference Range Comments GLUCOSE RANDOM (BEAKER) (test sfhq=733) 172 mg/dL 70-110 HGB/HCT (H&H) - STAT [id number] 09:45:00 Test Item Value Reference Range Comments HEMOGLOBIN (BEAKER) (test imcf=579) 8.6 g/dL 12.0-15.0 HEMATOCRIT (BEAKER) (test wjzs=742) 25.0 % 36.0-45.0 BLOOD GAS, [id number] 09:31:00 Test Item Value Reference Range Comments PH ARTERIAL (BEAKER) (test ciku=831) 7.35 7.35-7.45 PCO2 ARTERIAL (BEAKER) (test sfcx=149) 39 mmHg 35-45 PO2 ARTERIAL (BEAKER) (test bigd=791) 320 mmHg 80-90 O2 SATURATION ARTERIAL (BEAKER) (test qelf=924) 99.7 % 96.0-97.0 HCO3 ARTERIAL (BEAKER) (test vgor=971) 21 mmol/L 21-29 BASE EXCESS ARTERIAL (BEAKER) (test dcuu=118) -4.2 mmol/L -2.0-3.0 PATIENT TEMPERATURE (BEAKER) (test sziq=2990) 35.4 C FIO2 (BEAKER) (test ibkc=2873) 75.0 % SODIUM NA-STAT [id number] 09:31:00 Test Item Value Reference Range Comments SODIUM (BEAKER) (test goug=006) 124 meq/L 135-148 GLUCOSE-STAT [id number] 09:31:00 Test Item Value Reference Range Comments GLUCOSE RANDOM (BEAKER) (test izud=173) 162 mg/dL 70-110 HGB/HCT (H&H) - STAT [id number] 09:31:00 Test Item Value Reference Range Comments HEMOGLOBIN (BEAKER) (test xwpg=336) 8.8 g/dL 12.0-15.0 HEMATOCRIT (BEAKER) (test saqd=749) 26.0 % 36.0-45.0 POTASSIUM-STAT [id number] 09:31:00 Test Item Value Reference Range Comments POTASSIUM (BEAKER) (test iegw=588) 6.2 meq/L 3.6-5.5 BLOOD GAS, [id number] 09:09:00 Test Item Value Reference Range Comments PH ARTERIAL (BEAKER) (test zfos=664) 7.46 7.35-7.45 PCO2 ARTERIAL (BEAKER) (test hqif=942) 32 mmHg 35-45 PO2 ARTERIAL (BEAKER) (test gvvy=283) 355 mmHg 80-90 O2 SATURATION ARTERIAL (BEAKER) (test msdx=193) 99.8 % 96.0-97.0 HCO3 ARTERIAL (BEAKER) (test wtxp=763) 24 mmol/L 21-29 BASE EXCESS ARTERIAL (BEAKER) (test rnre=538) -1.6 mmol/L -2.0-3.0 PATIENT TEMPERATURE (BEAKER) (test vtmz=7156) 30.3 C FIO2 (BEAKER) (test phsr=4156) 70.0 % GLUCOSE-STAT [id number] 09:09:00 Test Item Value Reference Range Comments GLUCOSE RANDOM (BEAKER) (test kueu=241) 150 mg/dL 70-110 POTASSIUM-STAT [id number] 09:08:00 Test Item Value Reference Range Comments POTASSIUM (BEAKER) (test spmc=639) 5.5 meq/L 3.6-5.5 HGB/HCT (H&H) - STAT [id number] 09:08:00 Test Item Value Reference Range Comments HEMOGLOBIN (BEAKER) (test eqrt=674) 7.6 g/dL 12.0-15.0 HEMATOCRIT (BEAKER) (test dwnw=622) 22.0 % 36.0-45.0 SODIUM NA-STAT [id number] 09:08:00 Test Item Value Reference Range Comments SODIUM (BEAKER) (test ljlv=301) 124 meq/L 135-148 POTASSIUM-STAT [id number] 08:00:00 Test Item Value Reference Range Comments POTASSIUM (BEAKER) (test oqlx=111) 3.8 meq/L 3.6-5.5 CALCIUM, [id number] 08:00:00 Test Item Value Reference Range Comments CALCIUM IONIZED (BEAKER) (test sshu=891) 1.15 mmol/L 1.12-1.27 PH, BLOOD (BEAKER) (test qqlh=3069) 7.38 BLOOD GAS, [id number] 08:00:00 Test Item Value Reference Range Comments PH ARTERIAL (BEAKER) (test sjtf=627) 7.38 7.35-7.45 PCO2 ARTERIAL (BEAKER) (test adeb=943) 34 mmHg 35-45 PO2 ARTERIAL (BEAKER) (test ehxg=457) 426 mmHg 80-90 O2 SATURATION ARTERIAL (BEAKER) (test yvjj=010) 99.8 % 96.0-97.0 HCO3 ARTERIAL (BEAKER) (test zcjc=200) 20 mmol/L 21-29 BASE EXCESS ARTERIAL (BEAKER) (test lczj=476) -4.9 mmol/L -2.0-3.0 PATIENT TEMPERATURE (BEAKER) (test vofz=2279) 37.2 C FIO2 (BEAKER) (test ghfd=3468) 100.0 % SODIUM NA-STAT [id number] 08:00:00 Test Item Value Reference Range Comments SODIUM (BEAKER) (test kvdi=370) 130 meq/L 135-148 GLUCOSE-STAT [id number] 08:00:00 Test Item Value Reference Range Comments GLUCOSE RANDOM (BEAKER) (test oawz=507) 134 mg/dL 70-110 HGB/HCT (H&H) - STAT [id number] 08:00:00 Test Item Value Reference Range Comments HEMOGLOBIN (BEAKER) (test yjfq=989) 10.4 g/dL 12.0-15.0 HEMATOCRIT (BEAKER) (test gxnv=225) 31.0 % 36.0-45.0 RAD, CHEST, 1 VIEW, NON [id number] 07:24:00Reason for exam:->pre opShould this be performed at the bedside?->YesFINAL REPORT Chest one view. Clinical history: pre op Comparison: No priors Discussion: A frontal chest is provided. The cardiac and mediastinal contours are normal. There is no pneumothorax, henrietta pulmonary edema, consolidation or significant pleural effusion. The bony structures are unremarkable. Signed: Hemant Paige Verified Date/Time: 07/27/2017 07:24:49 ReadingLocation: [facility] Room [id number] 04:33:00 Test Item Value Reference Range Comments PROTIME (BEAKER) (test lhbf=532) 14.0 seconds 11.7-14.7 INR (BEAKER) (test tlyl=994) 1.1 <=5.9 PARTIAL THROMBOPLASTIN TIME (BEAKER) (test 40.0 seconds 22.5-36.0 apfy=881) RECOMMENDED COUMADIN/WARFARIN INR THERAPY RANGESSTANDARD DOSE: 2.0 - 3.0 Includes: PROPHYLAXIS forvenous thrombosis, systemic embolization; TREATMENT for venous thrombosis and/or pulmonary embolus.HIGH RISK: Target INR is 2.5-3.5 for patients with mechanical heart valves.PROTHROMBIN [id number] 04:32: 00 Test Item Value Reference Range Comments PROTIME (BEAKER) (test imfe=410) 14.0 seconds 11.7-14.7 INR (BEAKER) (test wejt=007) 1.1 <=5.9 RECOMMENDED COUMADIN/WARFARIN INR THERAPY RANGESSTANDARD DOSE: 2.0 - 3.0 Includes: PROPHYLAXIS forvenous thrombosis, systemic embolization; TREATMENT for venous thrombosis and/or pulmonary embolus.HIGH RISK: Target INR is 2.5-3.5 for patients with mechanical heart valves.CBC (HEMOGRAM ONLY)2017-07-27 04:18:00 Test Item Value Reference Range Comments WHITE BLOOD CELL COUNT (BEAKER) (test hszc=075) 9.9 K/ L 3.5-10.5 RED BLOOD CELL COUNT (BEAKER) (test gpqu=222) 2.92 M/ L 3.93-5.22 HEMOGLOBIN (BEAKER) (test ytel=269) 9.9 GM/DL 11.2-15.7 HEMATOCRIT (BEAKER) (test ciit=654) 28.7 % 34.1-44.9 MEAN CORPUSCULAR VOLUME (BEAKER) (test uukg=375) 98.3 fL 79.4-94.8 MEAN CORPUSCULAR HEMOGLOBIN (BEAKER) (test 33.9 pg 25.6-32.2 svvs=671) MEAN CORPUSCULAR HEMOGLOBIN CONC (BEAKER) (test 34.5 GM/DL 32.2-35.5 tcfn=668) RED CELL DISTRIBUTION WIDTH (BEAKER) (test 12.6 % 11.7-14.4 ysca=718) PLATELET COUNT (BEAKER) (test lcor=767) 383 K/CU MM 150-450 MEAN PLATELET VOLUME (BEAKER) (test nmbg=620) 9.9 fL 9.4-12.3 NUCLEATED RED BLOOD CELLS (BEAKER) (test 0 /100 WBC 0-0 dfju=174) HEMOGLOBIN [id number] 20:12:00 Test Item Value Reference Range Comments HEMOGLOBIN A1C (BEAKER) (test yujh=399) 6.6 % 4.3-6.1 PLATELET AGGREGATION: FUNCTION [id number] 18:20:00 Test Item Value Reference Range Comments WEAK ADP RESULT(BEAKER) (test 43 % 60-91 ixhf=1952) PLATELET FUNCTION SCREEN 40-49% indicates moderate INTERP (BEAKER) (test platelet dysfunction skwp=3806) [id number] Yuri Quijano M.D. (electonic (BEAKER) (test qhbn=4261) signature) PLATELET COUNT AGG (BEAKER) 417 K/CU MM 150-450 (test gvrq=2039) for patients on clopidogrel in past two weeksLIPID [id number] 13:14:00 Test Item Value Reference Range Comments TRIGLYCERIDES (BEAKER) (test 182 mg/dL Specimen slightly hemolyzed bjdl=477) CHOLESTEROL (BEAKER) (test 133 mg/dL Specimen slightly hemolyzed adul=882) HDL CHOLESTEROL (BEAKER) (test 31 mg/dL iwyi=347) LDL CHOLESTEROL CALCULATED 66 mg/dL (BEAKER) (test zpea=916) Triglyceride Reference Range: Low Risk <150 Borderline 150- 199 High Risk 200-499 Very High Risk >=500Cholesterol Reference Range: Low Risk <200 Borderline 200-239 High Risk > 240HDL Cholesterol Reference Range: Low Risk >=60 High Risk <40LDL Cholesterol Reference Range: Optimal <100 Near Optimal 100-129 Borderline 130-159 High 160-189 Very High >=190BASIC METABOLIC [id number] 09:12:00 Test Item Value Reference Range Comments SODIUM (BEAKER) (test 128 meq/L 136-145 cdve=376) POTASSIUM (BEAKER) (test 4.2 meq/L 3.5-5.1 Specimen slightly hdij=513) hemolyzed CHLORIDE (BEAKER) (test 100 meq/L 98-107 vwqy=726) CO2 (BEAKER) (test 18 meq/L 22-29 zvgq=212) BLOOD UREA NITROGEN 11 mg/dL 7-21 (BEAKER) (test azml=989) CREATININE (BEAKER) (test 0.86 mg/dL 0.57-1.25 Specimen slightly lvao=708) hemolyzed GLUCOSE RANDOM (BEAKER) 108 mg/dL 70-105 (test lmso=423) CALCIUM (BEAKER) (test 9.5 mg/dL 8.4-10.2 dfxg=838) EGFR (BEAKER) (test 68 mL/min/1.73 sq m ESTIMATED GFR IS NOT qrwu=1344) ACCURATE CREATININE CLEARANCE IN PREDICTING GLOMERULAR FILTRATION RATE. ESTIMATED GFR IS NOT APPLICABLE FOR DIALYSIS PATIENTS. HEPATIC FUNCTION [id number] 09:12:00 Test Item Value Reference Range Comments TOTAL PROTEIN (BEAKER) (test 7.0 gm/dL 6.0-8.3 Specimen slightly hemolyzed hmma=491) ALBUMIN (BEAKER) (test 3.5 g/dL 3.5-5.0 Specimen slightly hemolyzed jqga=0497) BILIRUBIN TOTAL (BEAKER) (test 0.4 mg/dL 0.2-1.2 Specimen slightly hemolyzed xzxh=229) BILIRUBIN DIRECT (BEAKER) (test 0.2 mg/dL 0.1-0.5 Specimen slightly hemolyzed ecww=295) ALKALINE PHOSPHATASE (BEAKER) 82 U/L 40-150 (test wjnz=306) AST (SGOT) (BEAKER) (test 32 U/L 5-34 Specimen slightly hemolyzed vpsm=873) ALT (SGPT) (BEAKER) (test 37 U/L 6-55 Specimen slightly hemolyzed xymd=321) PROTHROMBIN [id number] 05:58:00 Test Item Value Reference Range Comments PROTIME (BEAKER) (test btgt=383) 14.2 seconds 11.7-14.7 INR (BEAKER) (test vnnl=176) 1.1 <=5.9 RECOMMENDED COUMADIN/WARFARIN INR THERAPY RANGESSTANDARD DOSE: 2.0 - 3.0 Includes: PROPHYLAXIS forvenous thrombosis, systemic embolization; TREATMENT for venous thrombosis and/or pulmonary embolus.HIGH RISK: Target INR is 2.5-3.5 for patients with mechanical heart valves.CBC W/PLT COUNT & AUTO [id number] 05:49:00 Test Item Value Reference Range Comments WHITE BLOOD CELL COUNT (BEAKER) (test qmol=104) 10.6 K/ L 3.5-10.5 RED BLOOD CELL COUNT (BEAKER) (test ltud=852) 2.84 M/ L 3.93-5.22 HEMOGLOBIN (BEAKER) (test jldq=647) 9.6 GM/DL 11.2-15.7 HEMATOCRIT (BEAKER) (test nsbi=116) 28.0 % 34.1-44.9 MEAN CORPUSCULAR VOLUME (BEAKER) (test mtjb=281) 98.6 fL 79.4-94.8 MEAN CORPUSCULAR HEMOGLOBIN (BEAKER) (test 33.8 pg 25.6-32.2 hrqo=777) MEAN CORPUSCULAR HEMOGLOBIN CONC (BEAKER) (test 34.3 GM/DL 32.2-35.5 bbyd=555) RED CELL DISTRIBUTION WIDTH (BEAKER) (test 12.7 % 11.7-14.4 uhkv=818) PLATELET COUNT (BEAKER) (test yqaj=410) 393 K/CU MM 150-450 MEAN PLATELET VOLUME (BEAKER) (test vnbi=258) 9.9 fL 9.4-12.3 NUCLEATED RED BLOOD CELLS (BEAKER) (test 0 /100 WBC 0-0 ljxa=070) NEUTROPHILS RELATIVE PERCENT (BEAKER) (test 75 % wity=571) LYMPHOCYTES RELATIVE PERCENT (BEAKER) (test 13 % kxtg=003) MONOCYTES RELATIVE PERCENT (BEAKER) (test 9 % nmij=417) EOSINOPHILS RELATIVE PERCENT (BEAKER) (test 3 % ebma=825) BASOPHILS RELATIVE PERCENT (BEAKER) (test 0 % uzhw=378) NEUTROPHILS ABSOLUTE COUNT (BEAKER) (test 7.94 K/ L 1.56-6.13 kzbq=740) LYMPHOCYTES ABSOLUTE COUNT (BEAKER) (test 1.32 K/ L 1.18-3.74 hjap=922) MONOCYTES ABSOLUTE COUNT (BEAKER) (test 0.98 K/ L 0.24-0.36 aysc=499) EOSINOPHILS ABSOLUTE COUNT (BEAKER) (test 0.28 K/ L 0.04-0.36 blgb=214) BASOPHILS ABSOLUTE COUNT (BEAKER) (test 0.01 K/ L 0.01-0.08 zckl=993) IMMATURE GRANULOCYTES-RELATIVE PERCENT (BEAKER) 1 % 0-1 (test sqhz=3334)
[2018-10-06] MEDS ORDERED: CEFTRIAXONE/SWI 1gm 1 GM/10 ML SYR ONE (16:43)
[2018-10-06] MEDS ORDERED: NA CHLORIDE 0.9% 2,000 ML ONE (16:43)
[2018-10-06 17:16] LABS: Absolute Lymphocytes (CBC) 0.4 K/uL (0.7-4.9); Absolute Monocytes 0.5 K/uL (0.1-1.3); Absolute Neutrophil 12.9 K/uL (1.8-8.0); Basophils % 0.2 % (0-1.3); Eosinophils % 0.1 % (0-4.4); Hematocrit 33.7 % (36.0-45.0); Lymphocytes % 2.9 % (15.3-44.8); MPV 9.1 fL (7.6-11.3); Monocytes % 3.3 % (3.3-12.3); RBC Red Blood Cell Count 3.55 M/uL (3.86-4.86)
[2018-10-06] MEDS ORDERED: LEVALBUTEROL 1.25 MG/3 ML NEB ONE ×2 (17:30→18:27)
[2018-10-06] MEDS ORDERED: ACETAMINOPHEN 500 MG TAB ONE (17:30)
[2018-10-06] MEDS ORDERED: VANCOMYCIN 1 GM/250 ML BAG ONE (17:31)
--- NOTE | 2018-10-06 17:31 | RAD REPORT ---
EXAM DESCRIPTION: RAD - Chest Single View - 10/06/2018 5:22 pm CLINICAL HISTORY: Bilateral chest pain COMPARISON: June 2017 TECHNIQUE: AP portable chest image was obtained 1718 hours . FINDINGS: No acute lung parenchymal process seen. No failure or volume overload. 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 This would account for the slight haziness along the le ft-side heart border. Heart and vasculature are normal. No measurable pleural effusion and no pneumot horax. No acute bony abnormality seen. No acute aortic findings suspected. IMPRESSION: No acute cardiopulmonary process.
[2018-10-06 17:37] LABS: ALT/SGPT 12 U/L (12-78); AST/SGOT 13 U/L (15-37); Albumin 2.7 g/dL (3.4-5.0); Alkaline Phosphatase 106 U/L (45-117); BUN Blood Urea Nitrogen 28 mg/dL (7-18); Bicarbonate 22 mmol/L (21-32); Bilirubin Direct 0.2 mg/dL (0-0.2); Bilirubin Total 0.3 mg/dL (0.2-1.0); CKMB Creatine Kinase MB 1.6 ng/mL (0.3-3.6); Creatine Phosphokinase 161 U/L (26-192); Glucose Level 251 mg/dL (74-106); Lipase 55 U/L (73-393); Protein, Total 6.9 g/dL (6.4-8.2); Sodium Level 133 mmol/L (136-145); Troponin (Emerg Dept Use Only) < 0.02 ng/mL (0.0-0.045)
[2018-10-06 17:41] LABS: Protime INR 1.13
[2018-10-06 17:42] LABS: Potassium 2.9 mmol/L (3.5-5.1)
[2018-10-06 17:45] LABS: Urine Blood 2+ (NEG); Urine Glucose NEGATIVE (NEG); Urine Protein 3+ (NEG); Urine Specific Gravity 1.015 (1.005-1.030)
--- NOTE | 2018-10-06 17:59 | ER ---
Nurse's Notes [facility] Name: Mallory Nash Age: 58 yrs Sex: Female : 1960 Arrival Date: 10/06/2018 Time: 16:07 Bed 16 Private MD: Renetta Morillo H Diagnosis: Other chest pain;Chest pain on breathing;Asthma;Fever, unspecified;Type 2 diabetes mellitus;Unspecified kidney failure;Hypokalemia;Hypotension;Cystitis Presentation: 10/06 16:12 Presenting complaint: Patient states: left side and right side chest pain, SOB x 2 dm5 days. Transition of care: patient was not received from another setting of care. Onset of symptoms was October 04, 2018. Care prior to arrival: None. 16:12 Method Of Arrival: Wheelchair dm5 16:12 Acuity: MAICO 2 dm5 16:30 Risk Assessment: Do you want to hurt yourself or someone else? Patient reports no jl7 desire to harm self or others. Initial Sepsis Screen: Does the patient meet any 2 criteria? RR > 20 per min. Systolic BP < 90 mmHg. Yes Does the patient have a suspected source of infection? Yes: Productive cough/pneumonia Historical: - Allergies: 16:13 No Known Allergies; dm5 - Home Meds: 21:26 gabapentin 800 mg oral tab 1 tab 4 times per day [Active]; metoprolol tartrate 25 mg tl2 oral tab once daily [Active]; aspirin 81 mg Oral chew 1 tab once daily [Active]; - PMHx: 16:13 chronic back pain; Depression; Hypertension; dm5 - PSHx: 16:13 Appendectomy; dm5 - Immunization history:: Adult Immunizations unknown. - Social history:: Smoking status: Patient uses tobacco products. - Family history:: not pertinent. - Ebola Screening: : No symptoms or risks identified at this time. Screenin:50 Abuse screen: Denies threats or abuse. Denies injuries from another. Nutritional jl7 screening: No deficits noted. Tuberculosis screening: No symptoms or risk factors identified. Fall Risk IV access (20 points). Gait- Weak (10 pts.). Mental Status- Oriented to own ability (0 pts). Total Pizarro Fall Scale indicates Low Risk Score (25-44 pts). Fall prevention measures have been instituted. Side Rails Up X 2 Placed close to Nursing Station Frequent Obs/Assesments occuring Family Present and informed to notify staff if they need to leave bedside As available Patient and Family Educated on Fall Prevention Program and strategies. Assessment: 16:30 General: Appears in no apparent distress. uncomfortable, Behavior is calm, cooperative, jl7 appropriate for age. Pain: Complains of pain in diaphragm Pain does not radiate. Pain currently is 4 out of 10 on a pain scale. Quality of pain is described as aching, Pain began 2-3 days ago. Is continuous. Neuro: Level of Consciousness is awake, alert, obeys commands, Oriented to person, place, time, situation. Cardiovascular: Heart tones present Patient's skin is warm and dry. Rhythm is regular. Respiratory: Airway is patent Respiratory effort is even, labored, Respiratory pattern is symmetrical, tachypnea Breath sounds with wheezes bilaterally. GI: No signs and/or symptoms were reported involving the gastrointestinal system. : No signs and/or symptoms were reported regarding the genitourinary system. EENT: No signs and/or symptoms were reported regarding the EENT system. Derm: Skin is pink, warm \T\ dry. 17:45 Reassessment: Patient appears in no apparent distress at this time. Patient and/or jl7 family updated on plan of care and expected duration. Pain level reassessed. Patient is alert, oriented x 3, equal unlabored respirations, skin warm/dry/pink. Dr. Sim at bedside discussing plan of care. 19:43 General: Appears in no apparent distress. uncomfortable, Behavior is calm, cooperative, tl2 appropriate for age. General: Will call report to ICU in 30 minutes. Pain: Complains of pain in diaphragm Pain does not radiate. Quality of pain is described as aching. Neuro: Level of Consciousness is awake, alert, obeys commands, Oriented to person, place, time, situation. Cardiovascular: Heart tones S1 S2 present Rhythm is sinus rhythm. Respiratory: Airway is patent Respiratory effort is even, labored, Respiratory pattern is tachypnea Breath sounds with wheezes bilaterally. GI: No signs and/or symptoms were reported involving the gastrointestinal system. : No signs and/or symptoms were reported regarding the genitourinary system. Derm: Skin is pale. 20:30 Reassessment: Patient appears in no apparent distress at this time. Patient and/or tl2 family updated on plan of care and expected duration. Pain level reassessed. 21:27 Reassessment: Patient appears in no apparent distress at this time. Patient and/or tl2 family updated on plan of care and expected duration. Pain level reassessed. labs drawn and sent before taking pt to ICU. Vital Signs: 16:13 BP 84 / 55; Pulse 123; Resp 30; Temp 100.3(O); Pulse Ox 92% on R/A; Weight 54.43 kg; dm5 Height 5 ft. 5 in. (165.10 cm); 16:38 BP 102 / 59; Pulse 101; Resp 28 S; Pulse Ox 97% on 2 lpm NC; jl7 17:00 BP 85 / 53; Pulse 91; Resp 26 S; Pulse Ox 98% on 2 lpm NC; jl7 17:23 BP 92 / 61; Pulse 84; Resp 25; Pulse Ox 96% on 2 lpm NC; jl7 17:30 BP 109 / 60; Pulse 86; Resp 26 S; Pulse Ox 100% on Nebulizer Mask; jl7 18:08 BP 93 / 52; Pulse 93; Resp 24 S; Pulse Ox 100% on 2 lpm NC; jl7 18:30 Temp 98.2; jl7 19:41 BP 107 / 64; Pulse 89; Resp 18; Pulse Ox 100% on Nebulizer Mask; tl2 16:13 Body Mass Index 19.97 (54.43 kg, 165.10 cm) dm5 16:13 Pt placed on O2 \T\ 2L per NC. dm5 Vitals: 19:41 Cardiac Rhythm Assessment Sinus rhythm. tl2 ED Course: 16:07 Patient arrived in ED. sb2 16:07 Renetta Morillo DO is Private Physician. sb2 16:12 Triage completed. dm5 16:23 Jl Lu MD is Attending Physician. kdr 16:29 Edwrad Austin RN is Primary Nurse. jl7 16:30 Arm band placed on right wrist. jl7 16:40 Patient has correct armband on for positive identification. Placed in gown. Bed in low jl7 position. Call light in reach. Side rails up X 1. lunchroom monitor on. Pulse ox on. NIBP on. 16:45 Inserted saline lock: 20 gauge in left forearm, using aseptic technique. Blood jl7 collected. 16:45 Initial lab(s) drawn, by nd, sent to lab. First set of blood cultures drawn by me. jl7 Oxygen administration via nasal cannula \T\ 2L/min. 16:54 EKG done, by rfid technician. reviewed by Jl Lu MD. sm3 17:03 Second set of blood cultures drawn by me, Urine collected: clean catch specimen, [email or web address] 17:23 Chest Single View XRAY In Process Unspecified. EDMS 17:25 Attending Physician role handed off by Jl Lu MD layla 17:25 Dagoberto Sim MD is Attending Physician. layla 17:44 Notified ED physician of a critical lab result(s). Potassium 2.9. em 17:58 Chino Rose DO is Hospitalizing Provider. layla 18:50 Chest Abd Pelvis Wo Con In Process Unspecified. EDMS 19:19 Report given to NAIN López. jl7 19:43 IV with fluids infusing freely. tl2 21:27 No provider procedures requiring assistance completed. Patient admitted, IV remains in tl2 place. Administered Medications: 17:05 Drug: NS 0.9% (30 ml/kg) 30 ml/kg Route: IV; Rate: bolus; Site: left forearm; jl7 17:05 Drug: Rocephin 1 grams Route: IV; Rate: calculated rate; Site: left forearm; jl7 19:47 Follow up: IV Status: Completed infusion tl2 17:14 Not Given (Duplicate Order): Rocephin - (cefTRIAXone) 1 grams IVPB once over 30 mins; jl7 (mix in 50 mL NS) 17:38 Not Given (Duplicate Order): Tylenol Liquid 15 mg/kg PO once; not to exceed 1,000 jl7 milligrams 17:39 Drug: vancoMYCIN 1 grams Route: IVPB; Infused Over: 2 hrs; Site: left forearm; jl7 17:39 Drug: Xopenex (3) 1.25 mg Route: Inhalation; jl7 17:39 Drug: Tylenol 1000 mg Route: PO; jl7 18:30 Follow up: Temp 98.2 jl7 18:35 Drug: Potassium Effervescent Tablet 50 mEq Route: PO; jl7 18:35 Drug: Pepcid 20 mg Route: IVP; Site: left forearm; jl7 18:40 Drug: SOLU-Medrol 125 mg Route: IVP; Site: left forearm; jl7 18:41 Not Given (Dr. Rose cancelled order): Zithromax 500 mg IVPB once over 1 hrs; mix in jl7 250 mL NS 19:00 Drug: Lovenox 40 mg Route: Sub-Q; Site: left lower abdomen; jl7 19:00 Drug: Aspirin 162 mg Route: PO; jl7 19:03 Drug: NS 0.9% with KCl 20 mEq/L 1000 ml Route: IV; Rate: 125 ml/hr; Site: left forearm; jl7 19:47 Drug: Xopenex 1.25 mg Route: Inhalation; tl2 19:47 Drug: AtroVENT Aerosol 0.5 mg Route: Inhalation; tl2 Point of Care Testing: Blood Glucose: 17:16 Blood Glucose: 254 mg/dL; jl7 Ranges: Outcome: 17:59 Decision to Hospitalize by Provider. [facility] 21:27 Admitted to ICU tl2 21:27 Condition: stable 21:27 Discharge instructions given to patient, Instructed on the need for admit. 21:33 Patient left the ED. tl2 Signatures: Dispatcher [employer] EDDiamond Mejia RN RN dm5 Dagoberto Sim MD MD cha Rittger, Kevin, MD MD kdr Munoz, Edgar, STORES CLERK STORES CLERK Maribel Garrido RN RN tl2 Edward Austin RN RN jl7 Bruna Rojas sb2 Tia Bermudez sm3 Corrections: (The following items were deleted from the chart) 16:21 16:13 BP 84 / 55; Pulse 123bpm; Resp 30bpm; Pulse Ox 92% RA; 54.43 kg; Height 5 ft. 5 dm5 in.; BMI: 19.9; Pt placed on O2 \T\ 2L per NC.; dm5
--- NOTE | 2018-10-06 17:59 | EDPHYS ---
Physician Documentation [facility] Name: Mallory Nash Age: 58 yrs Sex: Female : 1960 Arrival Date: 10/06/2018 Time: 16:07 Bed 16 Private MD: Renetta Morillo H ED Physician Dagoberto Sim HPI: 10/06 17:55 This 58 yrs old Female presents to ER via Wheelchair with complaints of Chest layla Pain and sob. 17:55 The patient or guardian reports chest pain that is located primarily in the anterior layla chest wall, bilaterally. Onset: 3 day(s) ago. The pain does not radiate. Associated signs and symptoms: Pertinent positives: cough, shortness of breath. Modifying factors: The symptoms are alleviated by remaining still, the symptoms are aggravated by cough, deep breath. Historical: - Allergies: 16:13 No Known Allergies; dm5 - Home Meds: 21:26 gabapentin 800 mg oral tab 1 tab 4 times per day [Active]; metoprolol tartrate 25 mg tl2 oral tab once daily [Active]; aspirin 81 mg Oral chew 1 tab once daily [Active]; - PMHx: 16:13 chronic back pain; Depression; Hypertension; dm5 - PSHx: 16:13 Appendectomy; dm5 - Immunization history:: Adult Immunizations unknown. - Social history:: Smoking status: Patient uses tobacco products. - Family history:: not pertinent. - Ebola Screening: : No symptoms or risks identified at this time. ROS: 17:55 Constitutional: Negative for fever, chills, and weight loss, Eyes: Negative for injury, layla pain, redness, and discharge, ENT: Negative for injury, pain, and discharge, Neck: Negative for injury, pain, and swelling, Abdomen/GI: Negative for abdominal pain, nausea, vomiting, diarrhea, and constipation, Back: Negative for injury and pain, : Negative for injury, bleeding, discharge, and swelling, MS/Extremity: Negative for injury and deformity, Skin: Negative for injury, rash, and discoloration, Neuro: Negative for headache, weakness, numbness, tingling, and seizure, Psych: Negative for depression, anxiety, suicide ideation, homicidal ideation, and hallucinations, Allergy/Immunology: Negative for hives, rash, and allergies, Endocrine: Negative for neck swelling, polydipsia, polyuria, polyphagia, and marked weight changes, Hematologic/Lymphatic: Negative for swollen nodes, abnormal bleeding, and unusual bruising. 17:55 Cardiovascular: Positive for chest pain. 17:55 Respiratory: Positive for cough, shortness of breath, wheezing, inspiratory, expiratory. Exam: 17:55 Constitutional: This is a well developed, well nourished patient who is awake, alert, layla and in no acute distress. Head/Face: Normocephalic, atraumatic. Eyes: Pupils equal round and reactive to light, extra-ocular motions intact. Lids and lashes normal. Conjunctiva and sclera are non-icteric and not injected. Cornea within normal limits. Periorbital areas with no swelling, redness, or edema. ENT: Nares patent. No nasal discharge, no septal abnormalities noted. Tympanic membranes are normal and external auditory canals are clear. Oropharynx with no redness, swelling, or masses, exudates, or evidence of obstruction, uvula midline. Mucous membranes moist. Neck: Trachea midline, no thyromegaly or masses palpated, and no cervical lymphadenopathy. Supple, full range of motion without nuchal rigidity, or vertebral point tenderness. No Meningismus. Chest/axilla: Normal chest wall appearance and motion. Nontender with no deformity. No lesions are appreciated. Abdomen/GI: Soft, non-tender, with normal bowel sounds. No distension or tympany. No guarding or rebound. No evidence of tenderness throughout. Back: No spinal tenderness. No costovertebral tenderness. Full range of motion. Female : Normal external genitalia. Skin: Warm, dry with normal turgor. Normal color with no rashes, no lesions, and no evidence of cellulitis. MS/ Extremity: Pulses equal, no cyanosis. Neurovascular intact. Full, normal range of motion. Neuro: Awake and alert, GCS 15, oriented to person, place, time, and situation. Cranial nerves II-XII grossly intact. Motor strength 5/5 in all extremities. Sensory grossly intact. Cerebellar exam normal. Normal gait. Psych: Awake, alert, with orientation to person, place and time. Behavior, mood, and affect are within normal limits. 17:55 Cardiovascular: Rate: normal, Rhythm: regular, Pulses: Pulses are 4+ in bilateral radial, brachial, femoral, popliteal, posterior tibial and and dorsalis pedis arteries.. Heart sounds: normal, Edema: is not appreciated, JVD: is not appreciated. Vital Signs: 16:13 BP 84 / 55; Pulse 123; Resp 30; Temp 100.3(O); Pulse Ox 92% on R/A; Weight 54.43 kg; dm5 Height 5 ft. 5 in. (165.10 cm); 16:38 BP 102 / 59; Pulse 101; Resp 28 S; Pulse Ox 97% on 2 lpm NC; jl7 17:00 BP 85 / 53; Pulse 91; Resp 26 S; Pulse Ox 98% on 2 lpm NC; jl7 17:23 BP 92 / 61; Pulse 84; Resp 25; Pulse Ox 96% on 2 lpm NC; jl7 17:30 BP 109 / 60; Pulse 86; Resp 26 S; Pulse Ox 100% on Nebulizer Mask; jl7 18:08 BP 93 / 52; Pulse 93; Resp 24 S; Pulse Ox 100% on 2 lpm NC; jl7 18:30 Temp 98.2; jl7 19:41 BP 107 / 64; Pulse 89; Resp 18; Pulse Ox 100% on Nebulizer Mask; tl2 16:13 Body Mass Index 19.97 (54.43 kg, 165.10 cm) dm5 16:13 Pt placed on O2 \T\ 2L per NC. dm5 MDM: 17:25 [facility]. [facility] 17:57 Data reviewed: vital signs, nurses notes, lab test result(s), EKG, radiologic studies. [facility] 10/06 16:23 Order name: Basic Metabolic Panel; Complete Time: 17:52 [facility] 10/06 16:23 Order name: Blood Culture Adult (2) [facility] 10/06 16:23 Order name: CBC with Diff [facility] 02 16:23 Order name: Ckmb; Complete Time: 17:52 [facility] 10/06 16:23 Order name: CPK; Complete Time: 17:52 [facility] 10/06 16:23 Order name: Lactate; Complete Time: 17:52 [facility] 10/06 16:23 Order name: LFT's; Complete Time: 17:52 [facility] 02 16:23 Order name: Lipase; Complete Time: 17:52 [facility] 10/06 16:23 Order name: Procalcitonin; Complete Time: 17:52 [facility] 10/06 16:23 Order name: Protime (+inr); Complete Time: 17:52 kdr 10/06 16:23 Order name: Ptt, Activated; Complete Time: 17:52 kdr 10/06 16:23 Order name: Troponin (emerg Dept Use Only); Complete Time: 17:52 kdr 10/06 16:23 Order name: Urine Microscopic Only kdr 10/06 16:33 Order name: Flu kdr 10/06 16:23 Order name: Chest Single View XRAY; Complete Time: 17:52 kdr 10/06 17:16 Order name: Urine Dipstick--Ancillary (enter results); Complete Time: 17:52 eb 10/06 18:41 Order name: Chest Abd Pelvis Wo Con EDMO 10/06 18:44 Order name: Strep [facility] 10/06 20:40 Order name: Blood Culture EDMO 10/06 20:58 Order name: US EDMO 10/06 21:14 Order name: Platelet Count EDMO 10/06 21:27 Order name: Lactate EDMO 10/06 21:28 Order name: Creatine Phosphokinase EDMO 10/06 21:28 Order name: CKMB Creatine Kinase MB EDMO 10/06 21:28 Order name: Troponin I EDMO 10/06 16:23 Order name: Accucheck; Complete Time: 17:15 kdr 10/06 16:23 Order name: Cardiac monitoring; Complete Time: 17:15 kdr 10/06 16:23 Order name: EKG - Nurse/Tech; Complete Time: 17:15 kdr 10/06 16:23 Order name: IV Saline Lock - Large Bore; Complete Time: 17:15 kdr 10/06 16:23 Order name: Labs collected and sent; Complete Time: 17:15 kdr 10/06 16:23 Order name: O2 Per Protocol; Complete Time: 17:15 kdr 10/06 16:23 Order name: O2 Sat Monitoring; Complete Time: 17:15 kdr 10/06 16:23 Order name: Urine Dipstick-Ancillary (obtain specimen); Complete Time: 17:15 kdr 10/06 17:46 Order name: EKG Electrocardiogram EDMS Administered Medications: 17:05 Drug: NS 0.9% (30 ml/kg) 30 ml/kg Route: IV; Rate: bolus; Site: left forearm; jl7 17:05 Drug: Rocephin 1 grams Route: IV; Rate: calculated rate; Site: left forearm; jl7 19:47 Follow up: IV Status: Completed infusion tl2 17:14 Not Given (Duplicate Order): Rocephin - (cefTRIAXone) 1 grams IVPB once over 30 mins; jl7 (mix in 50 mL NS) 17:38 Not Given (Duplicate Order): Tylenol Liquid 15 mg/kg PO once; not to exceed 1,000 jl7 milligrams 17:39 Drug: vancoMYCIN 1 grams Route: IVPB; Infused Over: 2 hrs; Site: left forearm; jl7 17:39 Drug: Xopenex (3) 1.25 mg Route: Inhalation; jl7 17:39 Drug: Tylenol 1000 mg Route: PO; jl7 18:30 Follow up: Temp 98.2 jl7 18:35 Drug: Potassium Effervescent Tablet 50 mEq Route: PO; jl7 18:35 Drug: Pepcid 20 mg Route: IVP; Site: left forearm; jl7 18:40 Drug: SOLU-Medrol 125 mg Route: IVP; Site: left forearm; jl7 18:41 Not Given (Dr. Rose cancelled order): Zithromax 500 mg IVPB once over 1 hrs; mix in jl7 250 mL NS 19:00 Drug: Lovenox 40 mg Route: Sub-Q; Site: left lower abdomen; jl7 19:00 Drug: Aspirin 162 mg Route: PO; jl7 19:03 Drug: NS 0.9% with KCl 20 mEq/L 1000 ml Route: IV; Rate: 125 ml/hr; Site: left forearm; jl7 19:47 Drug: Xopenex 1.25 mg Route: Inhalation; tl2 19:47 Drug: AtroVENT Aerosol 0.5 mg Route: Inhalation; tl2 Point of Care Testing: Blood Glucose: 17:16 Blood Glucose: 254 mg/dL; jl7 Ranges: Critical Glucose Levels:Adult <50 mg/dl or >400 mg/dl <40 mg/dl or >180 mg/dl Disposition: 10/06/18 17:59 Hospitalization ordered by Chino Rose for Inpatient Admission. Preliminary diagnosis are Other chest pain, Chest pain on breathing, Asthma, Fever, unspecified, Type 2 diabetes mellitus, Unspecified kidney failure, Hypokalemia, Hypotension, Cystitis. - Bed requested for Intensive Care Unit. - Status is Inpatient Admission. tl2 - Condition is Fair. - Problem is new. - Symptoms have improved. UTI on Admission? Yes Signatures: Dispatcher [employer] EDMO Naima Harmon, RN RN Diamond Sandoval RN RN dm5 Dagoberto Sim MD MD cha Rittger, Kevin, MD MD kdr Knox, Taylor, RN RN tl2 Edward Austin, RN RN jl7 Corrections: (The following items were deleted from the chart) 18:01 17:59 Hospitalization Ordered by ChinoDidier MAR for Inpatient Admission. Preliminary layla diagnosis is Other chest pain; Chest pain on breathing; Asthma; Fever, unspecified; Type 2 diabetes mellitus; Unspecified kidney failure. Bed requested for Telemetry/MedSurg (Inpatient). Status is Inpatient Admission. Condition is Fair. Problem is new. Symptoms have improved. UTI on Admission? No. layla 18:38 18:01 10/06/2018 17:59 Hospitalization Ordered by Chino Rose MAR for Inpatient layla Admission. Preliminary diagnosis is Other chest pain; Chest pain on breathing; Asthma; Fever, unspecified; Type 2 diabetes mellitus; Unspecified kidney failure; Hypokalemia. Bed requested for Telemetry/MedSurg (Inpatient). Status is Inpatient Admission. Condition is Fair. Problem is new. Symptoms have improved. UTI on Admission? No. [facility] 18:41 18:38 Thorax Wo Con+CT.RAD.BRZ ordered. [facility] 18:44 18:39 Stone Protocol+CT.RAD.BRZ ordered. [facility] 19:16 18:38 10/06/2018 17:59 Hospitalization Ordered by ChinoDidier MAR for Inpatient kl Admission. Preliminary diagnosis is Other chest pain; Chest pain on breathing; Asthma; Fever, unspecified; Type 2 diabetes mellitus; Unspecified kidney failure; Hypokalemia; Hypotension; Cystitis. Bed requested for Telemetry/MedSurg (Inpatient). Status is Inpatient Admission. Condition is Fair. Problem is new. Symptoms have improved. UTI on Admission? Yes. layla 19:24 19:16 10/06/2018 17:59 Hospitalization Ordered by Chino Rose MAR for Inpatient kl Admission. Preliminary diagnosis is Other chest pain; Chest pain on breathing; Asthma; Fever, unspecified; Type 2 diabetes mellitus; Unspecified kidney failure; Hypokalemia; Hypotension; Cystitis. Bed requested for [facility]. Status is Inpatient Admission. Condition is Fair. Problem is new. Symptoms have improved. UTI on Admission? Yes. 21:33 19:24 10/06/2018 17:59 Hospitalization Ordered by Chino Rose DO for Inpatient tl2 Admission. Preliminary diagnosis is Other chest pain; Chest pain on breathing; Asthma; Fever, unspecified; Type 2 diabetes mellitus; Unspecified kidney failure; Hypokalemia; Hypotension; Cystitis. Bed requested for Intensive Care Unit. Status is Inpatient Admission. Condition is Fair. Problem is new. Symptoms have improved. UTI on Admission? Yes.
[2018-10-06] MEDS ORDERED: METHYLPREDNISOLONE 125 MG INJ ONE (18:27)
[2018-10-06] MEDS ORDERED: ASPIRIN 81 MG CHEWABLE TABLET ONE ×2 (18:27→19:10)
[2018-10-06] MEDS ORDERED: IPRATROPIUM BROM 0.5MG/2.5ML ONE (18:27)
[2018-10-06] MEDS ORDERED: POTASSIUM 25 MEQ EFFERV TAB ONE (18:27)
[2018-10-06] MEDS ORDERED: ENOXAPARIN 40 MG/0.4 ML SQ ONE (18:28)
[2018-10-06] MEDS ORDERED: FAMOTIDINE 20 MG/2 ML VIAL IV ONE (18:28)
[2018-10-06] MEDS ORDERED: NS KCL 20MEQ 1,000 ML IV ONE (18:28)
[2018-10-06] MEDS ORDERED: AZITHROMYCIN 0 MG/0 ML BAG ONE (18:28)
--- NOTE | 2018-10-06 19:01 | RAD REPORT ---
EXAM DESCRIPTION: CT - Chest Abd Pelvis Wo Con - 10/06/2018 6:49 pm CLINICAL HISTORY: Bilateral chest and abdomen pain COMPARISON: Chest films same date TECHNIQUE: During dynamic enhancement using 100 milliliters nonionic IV contrast, axial 5 millimeter thick images of the chest, abdomen and pelvis were obtained. Biphasic technique was utilized through the abdomen. Oral contrast was administered. All CT scans are performed using dose optimization technique as appropriate and may include automated exposure control or mA/KV adjustment according to patient size. FINDINGS: A 2 centimeter cystic cavity with surrounding scar tissue is present in the lateral left u pper lung field. Additional scarring changes extend to the left hilum. There is consolidated parenchy ma moderate in size in the medial retrocardiac left base. This region is poorly visualized on plain f ilm. Small granuloma seen in the right lung base. No suspicious right lung field finding. No pneumoth orax or pleural effusion. No chest wall mass or abnormal axillary lymphadenopathy seen. Mediastinal and hilar regions show no mass or lymphadenopathy. No significant cardiac finding. No acute bone fi nding. Sternotomy wires are in place. CABG surgical changes are noted. The liver, spleen and pancreas show no significant findings. Liver is borderline fatty infiltrated. Numerous small gallstones are present without active gallbladder process seen. No biliary tree dilata tion. No hydronephrosis or obstructing calculi. Isodense masses and pyelonephritis are not excluded. No adr enal abnormalities. No urinary bladder abnormalities. No uterine or right ovarian abnormality. Ther e is a 2.8 centimeter fatty mass in the left adnexa. No dilated bowel loops or focal ball bowel wall thickening. No free air, free fluid or inflammatory stranding. No hernia, mass or bulky lymphadenopathy. Disc and bony degenerative changes are present. Vascular calcifications seen. IMPRESSION: Moderately large retrocardiac medial left lung base pneumonia. Scarring and 2 centimeter cystic cavity in the left upper lung field. Malignant process is not suspec milana. Multi stone cholelithiasis without evidence for active gallbladder or biliary tree process. Approximately 2.8 centimeter dermoid or teratoma in the left adnexa. No evidence for rupture or hemor rhage.
--- NOTE | 2018-10-06 19:57 | P.HP ---
Certification for Inpatient Patient admitted to: Inpatient With expected LOS: >2 Midnights Practitioner: I am a practitioner with admitting privileges, knowledge of patient current condition, hospital course, and medical plan of care. Services: Services provided to patient in accordance with Admission requirements found in Title 42 Section 412.3 of the Code of Federal Regulations Patient History Date of Service: 10/06/18 Reason for admission: severe sepsis History of Present Illness: Ms Nash is a 58 years old woman with history of CAD s/p CABG x 3 about 1 year ago, she still smokes a few cigarettes daily, HTN, who start about 2 weeks ago with productive cough with greenish secretion associated with fever and chills. Gradually her symptoms resolved, but since 2 days ago, she start with progressive SOB, subjective fever episodes with chills and generalized body ache. She has not been coughing a lot lately. She also complaint of left chest wall pain, exacerbated with breathing movements. She denied nausea, vomiting or diarrhea. At arrival, her BP was on the lower side 84/55, O2 sat 93% on RA, tachycardic, febrile 100.3 F. Lab work significantly abnormal, remarkable for leukocytosis 13.8K, normal lactate but elevated procalcitonin. Creatinine elevated, hypokalemic, UA with trace leukocytes esterases. CT chest/abd/pelvis shows left lower lobe consolidation consistent with pneumonia, a cystic lesion with scarring tissue around in the upper left lobe, a dermoid cyst or teratoma in the left adnexal, and cholelithiasis. At my encounter the patient was in non- distress, however, tachypneic. Allergies No Known Drug Allergies Allergy (Verified 07/21/17 02:48) none Unable to Acquire Allergy (Uncoded 07/19/17 11:16) Unknown Home Medications: Albuterol Sulfate [Ventolin Hfa] 1 puff IH Q6HP PRN 07/16/17 Folic Acid 1 mg PO DAILY #30 tablet 07/16/17 Gabapentin [Neurontin] 800 mg PO TID 07/16/17 Losartan/Hydrochlorothiazide [Losartan-Hctz 50-12.5 mg Tab] 1 each PO DAILY Metoprolol Tartrate [Lopressor] 100 mg PO BID 07/16/17 Thiamine HCl [Vitamin B-1*] 100 mg PO DAILY #30 tablet 07/16/17 levoFLOXacin [Levaquin*] 500 mg PO DAILY #14 tab 07/25/17 - Past Medical/Surgical History Diabetic: No -: Depression -: HTN -: Chronic back pain -: Neuropathy -: CAD -: appendectomy -: CABG x 3 - Family History Family History: Reviewed- Non-Contributory - Social History Smoking Status: Current some day smoker Counseled patient to stop smoking for: less than 10 minutes Alcohol use: Yes CD- Drugs: No Caffeine use: Yes Place of Residence: Home Review of Systems 10-point ROS is otherwise unremarkable Physical Examination - Physical Exam General: Alert, In no apparent distress HEENT: Atraumatic, PERRLA, Mucous membr. moist/pink, EOMI, Sclerae nonicteric Neck: Supple, 2+ carotid pulse no bruit, No LAD, Without JVD or thyroid abnormality Respiratory: Diminished (bilateral base crackles, more on the left), Crackles/ rales, Expiratory wheezes (scattered wheezing bilaterally.) Cardiovascular: Regular rate/rhythm, Normal S1 S2 Gastrointestinal: Normal bowel sounds, No tenderness Musculoskeletal: No tenderness Integumentary: No rashes Neurological: Normal speech, Normal strength at 5/5 x4 extr, Normal tone, Normal affect Lymphatics: No axilla or inguinal lymphadenopathy - Studies Laboratory Data (last 24 hrs) 10/06/18 16:45: PT 13.3 H, INR 1.13, APTT 31.3 10/06/18 16:45: WBC 13.8 H, Hgb 11.4 L, Hct 33.7 L, Plt Count 230 10/06/18 16:45: Sodium 133 L, Potassium 2.9 L*, BUN 28 H, Creatinine 1.43 H, Glucose 251 H, Total Bilirubin 0.3, AST 13 L, ALT 12, Alkaline Phosphatase 106, Lipase 55 L Assessment and Plan - Problems (Diagnosis) (1) Severe sepsis Current Visit: Yes Status: Acute (2) Pneumonia Current Visit: Yes Status: Acute Qualifiers: Pneumonia type: due to unspecified organism Laterality: left Lung location: lower lobe of lung Qualified Code(s): J18.1 - Lobar pneumonia, unspecified organism (3) CAD (coronary artery disease) Current Visit: Yes Status: Acute Qualifiers: Coronary Disease-Associated Artery/Lesion type: bypass graft [place] vs. transplanted heart: citizen [place] heart Associated angina: without angina Qualified Code(s): I25.810 - Atherosclerosis of coronary artery bypass graft(s) without angina pectoris (4) UTI (urinary tract infection) Current Visit: No Status: Acute Qualifiers: Urinary tract infection type: acute cystitis Hematuria presence: without hematuria Qualified Code(s): N30.00 - Acute cystitis without hematuria - Plan Will admit the patient in ICU due to severe sepsis secondary to left lower lobe pneumonia and UTI. Her left upper lobe cystic lesion has scarring tissue around which is probably not acute. Will start empiric treatment with IV Vancomycin and Zosyn. Place central vein access for potential vasopressures need. Continue aggressive fluid resuscitation. Consult [facility], blood and urine cultures in process. - Advance Directives Does patient have a Living Will: No Does patient have a Durable POA for Healthcare: No - Code Status/Comfort Care Code Status Assessed: Yes Code Status: Full Code Critical Care: Yes ( 40 minutes) Time Spent Managing Pts Care (In Minutes): 60
[2018-10-06] MEDS ORDERED: ALBUTEROL 2.5 MG/3 ML NEB SOL NEB PRN (20:25)
[2018-10-06] MEDS ORDERED: NA CHLORIDE 0.9% 500 ML IV ONE (20:25)
[2018-10-06] MEDS: NA CHLORIDE 0.9% 1,000 ML with POTASSIUM CL 10 MEQ IV SCH ×2 (20:25)
[2018-10-06] MEDS ORDERED: IPRATROPIUM BROM 0.5MG/2.5ML NEB PRN (20:25)
[2018-10-06] MEDS: ARFORMOTEROL TARTRATE 15 MCG/2 ML VIAL.NEB NEB SCH (20:25)
[2018-10-06] MEDS ORDERED: SODIUM CHL 0.9% 1000 ML BAG IV ONE (20:25)
--- NOTE | 2018-10-06 20:57 | RAD REPORT ---
EXAM DESCRIPTION: US - Renal Ultrasound-Complete - 10/06/2018 8:47 pm CLINICAL HISTORY: Acute renal failure COMPARISON: None. FINDINGS: The right kidney measures 9.9 x 4.2 x 4.9 cm. The left kidney measures 10.5 x 3.9 x 4.4 c m. Cortical thickness is normal. There is increased cortical echogenicity consistent with medical karla al disease. No hydronephrosis or suspicious renal mass. No bladder wall thickening or mass. No intraluminal stone or mass. IMPRESSION: No hydronephrosis or suspicious renal mass. Medical renal disease is evident in each kidney.
[2018-10-06 21:12] LABS: MPV 9.3 fL (7.6-11.3)
[2018-10-06 21:26] LABS: CKMB Creatine Kinase MB 2.4 ng/mL (0.3-3.6); Creatine Phosphokinase 275 U/L (26-192); Troponin I < 0.02 ng/mL (0.0-0.045)
[2018-10-06 21:39] LABS: Albumin 2.7 g/dL (3.4-5.0); Bilirubin Direct 0.2 mg/dL (0-0.2); Bilirubin Total 0.4 mg/dL (0.2-1.0); Protein, Total 6.9 g/dL (6.4-8.2)
[2018-10-06 21:59] LABS: Platelet Estimate ADEQ
[2018-10-06 22:00] LABS: Blood Morphology Comment NOT SEEN (NOT SEEN); Platelet Estimate ADEQ
[2018-10-06] MEDS ORDERED: NA CHLORIDE 0.9% 1,000 ML IV ONE (22:07)
[2018-10-06 22:10] LABS: Blood O2 Saturation 93.4 % (92-98.5)
[2018-10-06 22:11] LABS: Arterial Blood Carboxyhemoglob 1.3 % (0-1.5); Blood Gas Oxyhemoglobin 91.6 % (94-97)
[2018-10-07] MEDS ORDERED: METHYLPREDNISOLONE 40 MG INJ IV SCH (01:00)
[2018-10-07 01:20] LABS: CKMB Creatine Kinase MB 2.6 ng/mL (0.3-3.6); Creatine Phosphokinase 221 U/L (26-192); Troponin I < 0.02 ng/mL (0.0-0.045)
[2018-10-07] MEDS: PIPER/TAZO/NS 3.375gm 3.375 GM/100 ML BAG IVPB SCH ×2 (01:34→06:09)
[2018-10-07] MEDS ORDERED: PIPER/TAZO/NS 3.375gm 3.375 GM/100 ML BAG ONE ×2 (01:41→06:11)
[2018-10-07] MEDS ORDERED: ACETAMINOPHEN 500 MG TAB ONE (02:54)
[2018-10-07] MEDS: ACETAMINOPHEN 500 MG TAB PO PRN (03:00)
[2018-10-07 03:59] LABS: Urine Protein/Creatinine Ratio 0.83 ratio (<0.15)
[2018-10-07 04:05] LABS: Urine Appearance CLEAR; Urine Bilirubin NEGATIVE (NEG); Urine Blood TRACE (NEG); Urine Color YELLOW; Urine Glucose 3+ (NEG); Urine Protein NEGATIVE (NEG); Urine Urobilinogen 0.2 mg/dL (0.2-1.0); Urine pH 5.5 (5.0-7.0)
[2018-10-07 04:21] LABS: Urine Microscopic Reflex ORDER UMIC
[2018-10-07] MEDS: NA CHLORIDE 0.9% 1,000 ML with POTASSIUM CL 10 MEQ IV SCH ×2 (04:28)
[2018-10-07 04:32] LABS: Urine Bacteria <20 /HPF (<20); Urine Culture Reflex Order NOT NEEDED; Urine RBC <5 /HPF (NONE SEEN)
[2018-10-07 06:00] LABS: Absolute Lymphocytes (CBC) 0.4 K/uL (0.7-4.9); Absolute Monocytes 0.3 K/uL (0.1-1.3); Absolute Neutrophil 12.6 K/uL (1.8-8.0); Basophils % 0.1 % (0-1.3); Hematocrit 30.3 % (36.0-45.0); Lymphocytes % 3.2 % (15.3-44.8); MPV 10.1 fL (7.6-11.3); Monocytes % 1.9 % (3.3-12.3); RBC Red Blood Cell Count 3.15 M/uL (3.86-4.86)
[2018-10-07] MEDS ORDERED: NA CHLORIDE 0.9% 1,000 ML IV SCH (06:00)
[2018-10-07 06:18] LABS: Albumin 2.4 g/dL (3.4-5.0); Bilirubin Total 0.3 mg/dL (0.2-1.0); Potassium 3.8 mmol/L (3.5-5.1); Protein, Total 6.3 g/dL (6.4-8.2)
--- NOTE | 2018-10-07 06:34 | EKG ---
Test Date: 2018-10-06 Test Time: 16:30:49 Icer Machine Operator: ROB MEASUREMENT RESULTS: Intervals: Rate: 101 WI: 144 QRSD: 72 QT: 312 QTc: 404 [place]: P: 54 WI: 144 QRS: 90 T: -19 INTERPRETIVE STATEMENTS: Sinus tachycardia Septal infarct, age undetermined ST & T wave abnormality, consider lateral ischemia Abnormal ECG Compared to ECG 07/20/2017 07:54:17 Sinus rhythm no longer present Myocardial infarct finding still present ST (T wave) deviation still present Electronically Signed On 10-07-18 06:28:16 MONITORING SPECIALIST by Steve Munoz
[2018-10-07] MEDS ORDERED: TRAMADOL HCL 50 MG TAB PO PRN (07:28)
[2018-10-07] MEDS: ARFORMOTEROL TARTRATE 15 MCG/2 ML VIAL.NEB NEB SCH ×3 (08:00→20:00)
[2018-10-07] MEDS ORDERED: GLUCAGON 1 MG/VIAL IM PRN (08:47)
[2018-10-07] MEDS ORDERED: D50W 25 GM/50 ML SYRINGE IV PRN (08:47)
--- NOTE | 2018-10-07 08:53 | P.PN ---
Subjective Date of Service: 10/07/18 Primary Care Provider: Dr. Morillo; Cardiology-Dr. Bull Chief Complaint: severe sepsis Subjective: Improving (Patient much improved since yesterday. Reports some pain from neuropathy. Mild headache this morning. Blood pressures improved with hydration.) Physical Examination - Vital Signs Temperature: 97.7 F Blood Pressure: 158/89 Pulse: 79 Respirations: 21 Pulse Ox (%): 98 - Physical Exam General: Alert, In no apparent distress, Oriented x3, Cooperative HEENT: Atraumatic Neck: Supple Respiratory: Diminished (To the left side), Expiratory wheezes, Inspiratory wheezes Cardiovascular: Normal pulses, Regular rate/rhythm Gastrointestinal: Normal bowel sounds, Soft and benign, Non-distended, No masses , No rebound, No guarding Musculoskeletal: No erythema, No tenderness, No warmth Integumentary: No tenderness/swelling, No erythema, No warmth, No cyanosis Neurological: Normal speech, Normal strength at 5/5 x4 extr, Normal tone, Normal affect - Studies Laboratory Data (last 24 hrs) 10/06/18 16:45: PT 13.3 H, INR 1.13, APTT 31.3 10/06/18 16:45: WBC 13.8 H, Hgb 11.4 L, Hct 33.7 L, Plt Count 230 10/06/18 16:45: Sodium 133 L, Potassium 2.9 L*, BUN 28 H, Creatinine 1.43 H, Glucose 251 H, Total Bilirubin 0.3, AST 13 L, ALT 12, Alkaline Phosphatase 106, Lipase 55 L Medications List Reviewed: Yes Assessment & Plan Discharge Plan: Home Plan to discharge in: Greater than 2 days - Code Status/Comfort Care Code Status Assessed: Yes (Patient full code.) Code Status: Full Code Physician Review Additional Text: Impression: Severe sepsis secondary to left retrocardiac medial lung base pneumonia with noted scarring and 2 cm cystic cavity in the left upper lung field Acute on chronic renal failure stage III COPD exacerbation Hypertension CAD with prior CABG Tobacco abuse CT showing multi stone cholelithiasis without cholecystitis and 2.8 cm dermoid/ teratoma in the left adnexae Hyperglycemia suspect diabetes mellitus type 2 Chronic pain suspect diabetic neuropathy Anemia likely of chronic disease Hypokalemia Plan: Severe sepsis secondary to left retrocardiac medial lung base pneumonia with noted scarring and 2 cm cystic cavity in the left upper lung field: Patient much improved with IV fluids. Continue with IV fluids. Sepsis protocol in place. Patient on IV vancomycin and Zosyn. Blood, urine and sputum culture obtained. Will also obtain sputum culture for TB due to cystic cavity. Pulmonology consulted. Await further recommendation. Wean off oxygen. Provide incentive spirometer. Will continue to monitor closely. If improved will consider transferring to the floor if okay with pulmonology and nephrology. Acute on chronic renal failure stage III: This has improved with hydration. Continue with IV fluids. Renal ultrasound shows chronic renal disease. Await further recommendations from nephrology. COPD exacerbation: Patient with tobacco abuse. Wheezing noted. Likely underlying COPD exacerbation. Will continue with Brovana. Will continue with prednisone. Will wean off oxygen. Await further recommendations from pulmonology. Hypertension: Patient was hypotensive upon initial evaluation. Blood pressure much improved and slightly hypertensive. Will restart her metoprolol. CAD with prior CABG: Patient with history of prior CABG. Continue with aspirin. Will check fasting lipid panel and echocardiogram. Tobacco abuse: Continue with tobacco cessation education CT showing multi stone cholelithiasis without cholecystitis and 2.8 cm dermoid/ teratoma in the left adnexae: Overall stable. Cholelithiasis can be addressed by surgery as an outpatient. Patient will need to follow up with gynecology to evaluate 2.8 cm left dermoid/teratoma. This can be done as an outpatient. Hyperglycemia suspect diabetes mellitus type 2: Blood sugars elevated. Suspect diabetes mellitus. Will check A1c. Will start insulin sliding scale. Will monitor Accu-Cheks. Chronic pain suspect diabetic neuropathy: Restart gabapentin. Will provide medication for pain. Anemia likely of chronic disease: Will check iron and B12 studies. Hypokalemia: Will continue to monitor and replace. Time Spent Managing Pts Care (In Minutes): 55
[2018-10-07] MEDS: CODEINE 30MG/APAP 300MG TAB PO PRN ×3 (08:55→19:56)
[2018-10-07] MEDS: GABAPENTIN 400 MG CAP PO SCH ×4 (08:55→20:28)
[2018-10-07] MEDS: predniSONE 20 MG TAB PO SCH ×2 (08:56→20:29)
[2018-10-07] MEDS: ASPIRIN EC 81 MG TAB PO SCH (08:56)
[2018-10-07] MEDS ORDERED: GABAPENTIN 300 MG CAP PO SCH ×2 (09:00)
[2018-10-07] MEDS ORDERED: PIPER/TAZO/NS 3.375gm 3.375 GM/100 ML BAG IVPB SCH ×2 (09:00→14:00)
[2018-10-07] MEDS ORDERED: HOME MED 1 EA UNK (Gabapentin [Neurontin] 800 MG) PO SCH (09:00)
[2018-10-07] MEDS ORDERED: METOPROLOL TAR 25 MG TAB PO SCH (09:00)
[2018-10-07 10:56] LABS: Ferritin 817.3 ng/mL (8-388); Thyroid Stimulating Hormone 0.155 uIU/mL (0.360-3.740)
[2018-10-07] MEDS ORDERED: CYANOCOBALAMIN 1000MCG/ML INJ IM ONE (11:13)
--- NOTE | 2018-10-07 11:27 | P.CNS ---
Date of Consult: 10/07/18 Primary Care Provider: Dr. Morillo; Cardiology-Dr. Bull Chief Complaint: Pneumonia COPD exacerbation History of Present Illness: Patient is 58 years of age admitted with shortness of breath since when is day became progressively worse complaining of cough congestion patient is an ex- smoker quit a year ago after her coronary artery bypass surgery in eyes any fever chills or chest pain uses Ventolin for prior history of obstructive airways disease CT scan shows a left lower lobe infiltrate patient is doing better hemodynamically stable Allergies No Known Drug Allergies Allergy (Verified 07/21/17 02:48) none Unable to Acquire Allergy (Uncoded 07/19/17 11:16) Unknown Home Medications: Aspirin [Adult Aspirin] 81 mg PO DAILY 10/06/18 Gabapentin [Neurontin] 800 mg PO QID 10/06/18 Metoprolol Tartrate [Lopressor] 25 mg PO DAILY 10/06/18 - Past Medical/Surgical History Diabetic: No -: Depression -: HTN -: Chronic back pain -: Neuropathy -: CAD -: appendectomy -: CABG x 3 - Family History Mother Medical History: Heart disease, Diabetes - Social History Smoking Status: Current every day smoker Alcohol use: No CD- Drugs: No Caffeine use: Yes Place of Residence: Home Review of Systems 10-point ROS is otherwise unremarkable Respiratory: Cough, Shortness of Breath Physical Examination Temp Pulse Resp BP Pulse Ox 97.7 F 82 21 H 158/88 H 98 10/07/18 08:54 10/07/18 09:06 10/07/18 08:54 10/07/18 09:06 10/07/18 08:54 General: Alert, In no apparent distress, Oriented x3 HEENT: Atraumatic Neck: Supple Respiratory: Crackles/rales (Crackles of the left base) Cardiovascular: No edema, Regular rate/rhythm Gastrointestinal: Normal bowel sounds, Soft and benign Laboratory Data (last 24 hrs) 10/06/18 16:45: PT 13.3 H, INR 1.13, APTT 31.3 10/06/18 16:45: WBC 13.8 H, Hgb 11.4 L, Hct 33.7 L, Plt Count 230 10/06/18 16:45: Sodium 133 L, Potassium 2.9 L*, BUN 28 H, Creatinine 1.43 H, Glucose 251 H, Total Bilirubin 0.3, AST 13 L, ALT 12, Alkaline Phosphatase 106, Lipase 55 L - Problems (1) Pneumonia Current Visit: Yes Status: Acute Plan: Patient is 58 years of age with a history of prior COPD former smoker admitted with worsening cough shortness of breath found to have left lower lobe pneumonia cultures are so far negative. She is hemodynamically stable to be transferred to the floor your over to p.o. levofloxacin white count is mildly elevated she is mildly hypoxic continue with bronchodilators steroids and can probably be discharged home tomorrow on levofloxacin prednisone and she will need a long-acting bronchodilator to follow with me in 2 weeks patient can be transferred to the floor Qualifiers: Pneumonia type: due to unspecified organism Laterality: left Lung location: lower lobe of lung Qualified Code(s): J18.1 - Lobar pneumonia, unspecified organism
[2018-10-07] MEDS: NA CHLORIDE 0.9% 1,000 ML IV SCH ×2 (12:00→14:38)
[2018-10-07] MEDS: levoFLOXacin 750 MG TAB PO SCH (12:21)
[2018-10-07] MEDS: INSULIN -REGULAR HUMAN 50 UNIT/0.5 ML ML SQ SCH ×3 (12:21→21:00)
[2018-10-07] MEDS ORDERED: INFLUENZA VACCINE (for 3y+) 0.5 ML DOSE IMVAC ONE (13:00)
[2018-10-07] MEDS ORDERED: PNEUMOCOCCAL VACCINE 0.5 ML IMVAC ONE (14:00)
[2018-10-07] MEDS: ONDANSETRON 4 MG/2 ML VIAL IV PRN ×2 (14:36→20:28)
[2018-10-07] MEDS: ENOXAPARIN 30 MG/0.3 ML SQ SCH (17:27)
[2018-10-07] MEDS ORDERED: VANCOMYCIN 1 GM in NA CHLORIDE 0.9% 250 ML IVPB SCH (21:00)
[2018-10-08] MEDS: ONDANSETRON 4 MG/2 ML VIAL IV PRN ×3 (03:16→15:11)
[2018-10-08] MEDS: CODEINE 30MG/APAP 300MG TAB PO PRN ×4 (03:16→21:42)
[2018-10-08] MEDS: NA CHLORIDE 0.9% 1,000 ML IV SCH (05:22)
[2018-10-08 05:49] LABS: Absolute Lymphocytes (CBC) 0.9 K/uL (0.7-4.9); Absolute Monocytes 0.6 K/uL (0.1-1.3); Absolute Neutrophil 13.3 K/uL (1.8-8.0); Hematocrit 31.4 % (36.0-45.0); Lymphocytes % 6.1 % (15.3-44.8); MPV 9.9 fL (7.6-11.3); Monocytes % 3.9 % (3.3-12.3); RBC Red Blood Cell Count 3.28 M/uL (3.86-4.86)
[2018-10-08 06:09] LABS: Albumin 2.4 g/dL (3.4-5.0); Bilirubin Total 0.2 mg/dL (0.2-1.0); Magnesium 1.9 mg/dL (1.8-2.4); Protein, Total 6.2 g/dL (6.4-8.2)
[2018-10-08 06:15] LABS: Blood Morphology Comment NOT SEEN (NOT SEEN); Platelet Estimate ADEQ; Urine White Blood Cell Casts OK
[2018-10-08] MEDS: INSULIN -REGULAR HUMAN 50 UNIT/0.5 ML ML SQ SCH ×2 (07:30→11:30)
[2018-10-08] MEDS: ARFORMOTEROL TARTRATE 15 MCG/2 ML VIAL.NEB NEB SCH ×2 (07:56→20:00)
[2018-10-08] MEDS ORDERED: NA CHLORIDE 0.9% 1,000 ML IV SCH (08:00)
[2018-10-08] MEDS ORDERED: NACHLORIDE 0.45% 1,000 ML IV SCH (09:00)
[2018-10-08] MEDS: GABAPENTIN 400 MG CAP PO SCH ×4 (10:08→21:04)
[2018-10-08] MEDS: predniSONE 20 MG TAB PO SCH ×2 (10:09→21:06)
[2018-10-08] MEDS: levoFLOXacin 750 MG TAB PO SCH (10:09)
[2018-10-08] MEDS: CYANOCOBALAMIN 1,000 MCG TAB PO SCH (10:09)
[2018-10-08] MEDS: ASPIRIN EC 81 MG TAB PO SCH (10:09)
[2018-10-08] MEDS: FERROUS SULFATE 325 MG TAB PO SCH (10:10)
[2018-10-08] MEDS: METOPROLOL TAR 25 MG TAB PO SCH ×2 (10:13→21:06)
--- NOTE | 2018-10-08 10:37 | RAD REPORT ---
EXAM DESCRIPTION: RAD - Chest Pa And Lat (2 Views) - 10/08/2018 9:58 am CLINICAL HISTORY: Pneumonia COMPARISON: October 06 imaging, CT chest October 06 TECHNIQUE: PA and lateral views of the chest were obtained. FINDINGS: The lungs are fibrotic as a baseline. Interstitial pattern throughout both lung sullivan has increased. Medial left lung base consolidated pneumonia not clearly different from comparison. Right costophrenic angle blunting has developed in the patient may have a new lateral right base infiltrat e. No significant failure or volume overload. PICC line remains in good position. Heart size is nor mal and central vasculature is within normal limits. No pleural effusion or pneumothorax seen. No a cute bony finding noted. No aortic abnormality. IMPRESSION: No identifiable change to the consolidated pneumonia medial left lung base. New opacification in the lateral right base may be an additional infiltrate. Patient has an overall i nterstitial edema pattern throughout the lung sullivan.
--- NOTE | 2018-10-08 14:22 | RAD REPORT ---
EXAM DESCRIPTION: RAD - Chest Single View - 10/06/2018 11:45 pm CLINICAL HISTORY: 58 Years Female, picc line placement COMPARISON: None. FINDINGS: Visualization of right upper cavity PICC terminating in the proximal SVC. Evidence of prior median sternotomy and CABG surgery. No focal lung consolidation. Prominence of interstitium. No pleural effusion. No pneumothorax. Cardiac and mediastinal silhouette is unremarkable. No acute osseous abnormality. IMPRESSION: Appropriately placed right upper cavity PICC. No pneumothorax. Mild interstitial edema. Electronically signed by: Mustapha Hamm DO 10/06/2018 11:54 PM MOBILE LAB TECHNICIAN Due to temporary technical issues with the PACS/Fluency reporting system, reports are being signed by the in house radiologist as a courtesy to ensure prompt reporting. The interpreting radiologist is f ully responsible for the content of the report.
--- NOTE | 2018-10-08 15:15 | P.PN ---
Subjective Date of Service: 10/08/18 Primary Care Provider: Dr. Morillo; Cardiology-Dr. Bull Chief Complaint: Pneumonia COPD exacerbation Subjective: Improving (Patient improving. Still with poor appetite. 24 hr urine collection started today.) Physical Examination - Vital Signs Temperature: 97.9 F Blood Pressure: 156/72 Pulse: 72 Respirations: 20 Pulse Ox (%): 92 - Physical Exam General: Alert, In no apparent distress, Oriented x3, Cooperative HEENT: Atraumatic Neck: Supple Respiratory: Diminished (Less diminished. Improved aeration bilateral) Cardiovascular: Normal pulses, Regular rate/rhythm Gastrointestinal: Normal bowel sounds, Soft and benign, Non-distended, No tenderness, No masses, No rebound, No guarding Musculoskeletal: No erythema, No tenderness, No warmth Integumentary: No tenderness/swelling, No erythema, No warmth, No cyanosis Neurological: Normal speech, Normal strength at 5/5 x4 extr, Normal tone, Normal affect - Studies Medications List Reviewed: Yes Assessment & Plan Discharge Plan: Home Plan to discharge in: 24 Hours Physician Review Additional Text: Impression: Severe sepsis secondary to bilateral pneumonia with noted scarring and 2 cm cystic cavity in the left upper lung field Acute on chronic renal failure stage III COPD exacerbation with underlying COPD Hypertension CAD with prior CABG Tobacco abuse CT showing multi stone cholelithiasis without cholecystitis and 2.8 cm dermoid/ teratoma in the left adnexae Hyperglycemia now with new diagnosis of diabetes mellitus type 2 Chronic pain suspect diabetic neuropathy Anemia likely of chronic disease with iron and B12 deficiency Hypokalemia Plan: Severe sepsis secondary to bilateral pneumonia with noted scarring and 2 cm cystic cavity in the left upper lung field: Follow up X-ray shows possible bilateral pneumonia. Patient much improved with IV fluids. Will decrease IV fluids. If taking good oral intake will discontinue IV fluids. Blood cultures negative. Antibiotics adjusted yesterday. Now on Levaquin. Continue with prednisone and COPD medication for underlying COPD exacerbation. Patient with underlying chronic renal disease. Nephrology has ordered 24 urine collection. Renal ultrasound shows chronic renal disease. Encourage ambulation. Encourage oral intake. Await echocardiogram. Continue incentive spirometer. Will wean off oxygen. Anticipate discharge in the next 24-48 hr. I will turn the service over to Dr. Moncada tomorrow. I will go over the plan of care with her. Acute on chronic renal failure stage III: This has improved with hydration. Will adjust IV fluids. Nephrology ordered 24 hr urine collection. COPD exacerbation: Patient with tobacco abuse. Wheezing noted. Likely underlying COPD exacerbation. Will continue with Brovana, prednisone. Will continue to wean off oxygen. Patient may require oxygen at discharge. Hypertension: Blood pressure is elevated. Increase metoprolol. CAD with prior CABG: Patient with history of prior CABG. Continue with aspirin. Await echocardiogram result. Tobacco abuse: Continue with tobacco cessation education CT showing multi stone cholelithiasis without cholecystitis and 2.8 cm dermoid/ teratoma in the left adnexae: Overall stable. Cholelithiasis can be addressed by surgery as an outpatient. Patient will need to follow up with gynecology to evaluate 2.8 cm left dermoid/teratoma. This can be done as an outpatient. Hyperglycemia now with new diagnosis of diabetes mellitus type 2: A1c 7.5. New diagnosis of diabetes. Continue sliding scale. Patient will require medication at discharge. Chronic pain suspect diabetic neuropathy: Continue with gabapentin. Will provide medication for pain. Anemia likely of chronic disease with iron and B12 deficiency: Continue iron and B12 supplementation. Monitor closely. Hypokalemia: Will continue to monitor and replace. Time Spent Managing Pts Care (In Minutes): 55
[2018-10-08] MEDS: NACHLORIDE 0.45% 1,000 ML IV SCH (16:00)
[2018-10-08] MEDS: ENOXAPARIN 30 MG/0.3 ML SQ SCH (17:30)
[2018-10-08] MEDS ORDERED: HYDRALAZINE HCL 20 MG/ML VIAL IV PRN (17:46)
[2018-10-08] MEDS: AMLODIPINE 5 MG TAB PO SCH (18:43)
[2018-10-09] MEDS: ONDANSETRON 4 MG/2 ML VIAL IV PRN (00:38)
--- NOTE | 2018-10-09 02:11 | PN ---
Date of Progress Note: 10/08/2018 Chief Complaint: Acute kidney injury due to prerenal azotemia, nonoliguric acute tubular necrosis. History Of Present Illness: The patient was admitted to the hospital because of generalized weakness . The patient is on IV fluids. Renal function has improved. BUN is 19, creatinine is 0.81. On arr ival to the hospital, creatinine was 1.43. Review of Systems: Denies fever or chills. Physical Examination: Lungs: Clear to auscultation bilaterally. Heart: S1, S2. Abdomen: Soft, benign. Extremities: No edema. Laboratory Data: Sodium 143, potassium 4.0, chloride 110, CO2 of 24, BUN 19, creatinine 0.81, glucos e 189. Impression And Plan: Acute kidney injury, secondary to prerenal azotemia, renal hypoperfusion. Carine l function is improving. Renal ultrasound did not show hydronephrosis. There is medical renal disea se evident in each kidney with increased echotexture. Monitor electrolytes, renal function, and flui d balance. Screen for proteinuria to rule out any evidence of nephritis. At this point, urinalysis did not show active urinary sediment. Protein to creatinine ratio is 0.83 and urine test is pending to rule out monoclonal gammopathy of unknown significance. EB/MODL Voice ID: [id number] Report ID: [id number]
[2018-10-09] MEDS: ACETAMINOPHEN 500 MG TAB PO PRN ×2 (04:48→17:01)
[2018-10-09 05:30] LABS: Albumin 2.5 g/dL (3.4-5.0); Bilirubin Total 0.3 mg/dL (0.2-1.0); Magnesium 1.7 mg/dL (1.8-2.4); Potassium 3.4 mmol/L (3.5-5.1); Protein, Total 6.4 g/dL (6.4-8.2)
[2018-10-09 05:37] LABS: Absolute Monocytes 0.6 K/uL (0.1-1.3); Absolute Neutrophil 8.9 K/uL (1.8-8.0); Basophils % 0.3 % (0-1.3); Hematocrit 32.5 % (36.0-45.0); Lymphocytes % 9.5 % (15.3-44.8); MPV 9.8 fL (7.6-11.3); Monocytes % 5.4 % (3.3-12.3); RBC Red Blood Cell Count 3.48 M/uL (3.86-4.86)
[2018-10-09] MEDS ORDERED: MAGNESIUM SULFATE 1 gm IVPB 1 GM/100 ML BAG IV ONE (06:08)
[2018-10-09] MEDS ORDERED: POTASSIUM CL SA 10 MEQ TAB PO ONE (06:12)
--- NOTE | 2018-10-09 06:56 | RAD REPORT ---
EXAM DESCRIPTION: RAD - Chest Pa And Lat (2 Views) - 10/09/2018 6:48 am CLINICAL HISTORY: Pneumonia COMPARISON: October 08 in October 06 chest films, October 06 CT chest TECHNIQUE: PA and lateral views of the chest were obtained. FINDINGS: The lungs are normal volume. Retrocardiac consolidated pneumonia shows slight improvement since prior day imaging. Opacification lateral gutter on the right has not changed. PICC line remains in place. Heart size is normal and central vasculature is within normal limits. No enlarging pleu ral effusion. No pneumothorax. IMPRESSION: Medial left lung base pneumonia has improved. No progressive finding noted.
[2018-10-09 06:58] VITALS: BMI 21.4
[2018-10-09] MEDS: CYANOCOBALAMIN 1,000 MCG TAB PO SCH (08:48)
[2018-10-09] MEDS: AMLODIPINE 5 MG TAB PO SCH (08:48)
[2018-10-09] MEDS: GABAPENTIN 400 MG CAP PO SCH ×3 (08:49→17:13)
[2018-10-09] MEDS: FERROUS SULFATE 325 MG TAB PO SCH (08:49)
[2018-10-09] MEDS: ASPIRIN EC 81 MG TAB PO SCH (08:49)
[2018-10-09] MEDS: predniSONE 20 MG TAB PO SCH (08:49)
[2018-10-09] MEDS: METOPROLOL TAR 25 MG TAB PO SCH (08:49)
[2018-10-09] MEDS: levoFLOXacin 750 MG TAB PO SCH (08:49)
[2018-10-09] MEDS: ARFORMOTEROL TARTRATE 15 MCG/2 ML VIAL.NEB NEB SCH (08:53)
--- NOTE | 2018-10-09 09:03 | CON ---
Date of Consultation: 10/07/2018 Chief Complaint: Acute kidney injury. History Of Present Illness: Acute kidney injury, severe nonoliguric secondary to renal hypoperfusion, prerenal azotemia, and acute tubular necrosis. The patient is admitted to ICU for sepsis and white count was elevated up to 13, 800. Creatinine level was up to 1.3 and previous baseline creatinine back in 2017 was 0.79-0.93. The patient denies history of kidney disease. Today, lab work showed some improvement of renal function. BUN is 20, creatinine 1.13, sodium level 137, potassium 3.8, chloride 106, CO2 22. The patient required fluid resuscitation. She was found to have elevated lactic acid in setting of sepsis and she is on antibiotics of broad spectrum. Pending culture results. Renal ultrasound showed right kidney 9.9 cm in length, left kidney 10.5 cm in length. No hydronephrosis. There is increased echogenicity. Cortical thickness is normal. The patient has medical renal disease according to ultrasound and lab work showed prerenal azotemia. Urinalysis was obtained today , did not show active urinary sediment. The patient was found to have 2 and 3+ protein and protein-creatinine ratio is 0.83, which is corresponding with mild to moderate proteinuria. Review of Systems: Constitutional: Denies fever or chills. Eyes: Denies vision changes. Ears, Nose, Mouth, and Throat: Denies sore throat or earache. Respiratory: Denies PND or orthopnea. She has productive cough with yellowish sputum. Denies hemoptysis. GI: Denies nausea or vomiting. : Denies dysuria or hematuria. Musculoskeletal: Denies muscle ache and swelling. All other systems reviewed and all are negative. Past Medical History: Hypertensive, coronary artery disease, hyperlipidemia, hypertensive heart disease, neuropathy, chronic back pain, depression, appendectomy, coronary artery disease. The patient denies diabetes. Social History: Denies tobacco, alcohol, or illicit drugs. Family History: No kidney disease in the family. Physical Examination: General: The patient is awake, alert, not in acute distress. Eyes: Anicteric sclerae. EOMI. Nose, Mouth, and Throat: Oral mucosa moist. No pallor. Neck: Supple. No JVD. No bruits. Lungs: Crackles bilaterally at bases. Few wheezes. Cardiovascular: S1, S2. No pericardial friction rub. Abdomen: Soft, benign, nontender. Extremities: No tenderness. No clubbing. No cyanosis. Neurologic: Moving extremities. Cranial nerves intact. Laboratory Data: Sodium 133, potassium 2.9, creatinine 1.43, glucose 251, total bilirubin 0.8, lipase 55. Impression And Plan: 1. Acute on chronic kidney injury. The patient likely has benign nephrosclerotic hypertensive kidney disease. The patient developed prerenal azotemia secondary to renal hypoperfusion associated with sepsis. Lactic acid was elevated. Monitor lactic acid level. Continue antibiotics for pneumonia. Adjust antibiotic dose to renal function. CT scan of the chest, abdomen, and pelvis showed left lower lobe consolidation consistent with cystic lesion with scarring tissue around the upper lobe. Further workup per primary team. 2. Acute kidney injury. Angiotensin receptor mehdi is on hold. 3. Hyponatremia. Monitor sodium level. The patient was found to have elevated glucose level. Monitor hemoglobin A1c. 4. Proteinuria. Check urine protein electrophoresis to rule out monoclonal gammopathy of unknown significance. 5. Hypertension. Blood pressure improving. The patient has borderline hypotension. Blood pressure medications on hold. Adjust treatment according to blood pressure. LEORA/ML Voice ID: [id number] Report ID: [id number] JENNI
[2018-10-09 10:14] VITALS: O2SAT 93
--- NOTE | 2018-10-09 11:14 | ECHO ---
HEIGHT: 5 ft 5 in WEIGHT: 128 lb 11.2 oz DATE OF STUDY: 10/09/[address]: Chino Rose DO 2-DIMENSIONAL: YES M.MODE: YES DOPPLER: YES COLOR FLOW: YES TDS: NO PORTABLE: NO DEFINITY: NO BUBBLE STUDY: NO DIAGNOSIS: SEPSIS CARDIAC HISTORY: CATHERIZATION: YES SURGERY: YES PROSTHETIC VALVE: NO PACEMAKER: NO MEASUREMENTS (cm) DIASTOLIC (NORMALS) SYSTOLIC (NORMALS) IVSd 0.8 (0.6-1.2) LA Diam 3.9 (1.9-4.0) LVEF 71% LVIDd 4.6 (3.5-5.7) LVIDs 2.8 (2.0-3.5) %FS 40% LVPWd 1.0 (0.6-1.2) Ao Diam 3.0 (2.0-3.7) 2 DIMENSIONAL ASSESSMENT: RIGHT ATRIUM: NORMAL LEFT ATRIUM: NORMAL RIGHT VENTRICLE: NORMAL LEFT VENTRICLE: NORMAL TRICUSPID VALVE: NORMAL MITRAL VALVE: NORMAL PULMONIC VALVE: NORMAL AORTIC VALVE: NORMAL PERICARDIAL EFFUSION: NONE AORTIC ROOT: NORMAL LEFT VENTRICULAR WALL MOTION: NORMAL DOPPLER/COLOR FLOW: MILD MITRAL AND TRICUSPID REGURGITATION. ESTIMATED RIGHT VENTRICULAR SYSTOLIC PRESSURE 37 mmHg. MILD PULMONARY HYPERTENSION. COMMENTS: NORMAL 2D ECHOCARDIOGRAM. MILD MITRAL AND TRICUSPID REGURGITATION. MILD PULMONARY HYPERTENSION. TECHNOLOGIST: Adalid PRETTY
[2018-10-09] MEDS: NACHLORIDE 0.45% 1,000 ML IV SCH (11:59)
[2018-10-09] MEDS: INSULIN -REGULAR HUMAN 50 UNIT/0.5 ML ML SQ SCH ×2 (12:44→17:13)
[2018-10-09 16:39] VITALS: BP 158/72; TEMP 97.2
[2018-10-09] MEDS: ENOXAPARIN 30 MG/0.3 ML SQ SCH (17:00)
--- NOTE | 2018-10-09 17:28 | P.DS ---
Admission Date: 10/06/18 Discharge Date: 10/09/18 Primary Care Provider: Dr. Morillo; Cardiology-Dr. Bull Disposition: ROUTINE DISCHARGE Discharge Condition: GOOD Reason for Admission: Pneumonia COPD exacerbation Consultations: Pulmonology Nephrology Cardiology Brief History of Present Illness: Ms Nash is a 58 years old woman with history of CAD s/p CABG x 3 about 1 year ago, she still smokes a few cigarettes daily, HTN, who start about 2 weeks ago with productive cough with greenish secretion associated with fever and chills. Gradually her symptoms resolved, but since 2 days ago, she start with progressive SOB, subjective fever episodes with chills and generalized body ache. She has not been coughing a lot lately. She also complaint of left chest wall pain, exacerbated with breathing movements. She denied nausea, vomiting or diarrhea. At arrival, her BP was on the lower side 84/55, O2 sat 93% on RA, tachycardic, febrile 100.3 F. Lab work significantly abnormal, remarkable for leukocytosis 13.8K, normal lactate but elevated procalcitonin. Creatinine elevated, hypokalemic, UA with trace leukocytes esterases. CT chest/abd/pelvis shows left lower lobe consolidation consistent with pneumonia, a cystic lesion with scarring tissue around in the upper left lobe, a dermoid cyst or teratoma in the left adnexal, and cholelithiasis. At my encounter the patient was in non- distress, however, tachypneic. Hospital Course: Patient was admitted to the ICU for severe sepsis secondary left lower lobe pneumonia in UTI. She was started on empiric antibiotics IV vancomycin and Zosyn. Several line access was placed for potential vasopressor needs. She was started on IV fluid resuscitation, pulmonology was consulted. Blood in urine cultures were drawn. Patient improved with IV fluids. She was then transferred to the floor. She was eventually weaned off oxygen. Blood cultures and urine cultures remained negative throughout the stay. Her symptoms improved as did her hemodynamic status. Prior to discharge, patient was alert oriented x4, asymptomatic, sitting up, tolerating diet also ambulating without any concerns. She was denying any symptoms prior to discharge. Nephrology was consulted for her acute on chronic renal failure, stage III. The renal function did improve with hydration however renal ultrasound did show chronic renal disease. Nephrology ordered 24 hr urine collection, which is collected here in the hospital. Patient will follow up as an outpatient with Nephrology for further evaluation. Patient likely has underlying COPD is she is still a current smoker. She was started on bourbon a along with prednisone. Oxygen was weaned off. Pulmonology was consulted. Patient was hypertensive upon initial evaluation and her metoprolol was restarted once her blood pressure improved. Her blood pressure continues remain elevated. Norvasc was added to her regimen, which would be continued at discharge. Patient does have a history of CAD with prior CABG therefore no echocardiogram was done, which was normal. Patient with incidental finding of cholelithiasis on CT, stable and asymptomatic. This will be addressed by Surgery as an outpatient. Information for general surgery will provided. Patient was also found to have a 2.8 cm dermoid/teratoma the left adnexae for which she will need to follow up with gynecology as an outpatient. She was also diagnosed with diabetes mellitus, type 2 throughout this visit, with an A1c of 7.5. We will start patient on metformin at discharge. She was given resources for Diabetes Clinic, and recommended to follow up outpatient for further management/medication changes. She will also be provided a prescription for gabapentin for her chronic pain, suspected diabetic neuropathy. Vital Signs/Physical Exam: Temp Pulse Resp BP Pulse Ox 97.2 F 72 18 158/72 H 95 10/09/18 16:00 10/09/18 16:00 10/09/18 16:00 10/09/18 16:00 10/09/18 16:00 General: Alert, In no apparent distress, Oriented x3 HEENT: Atraumatic, PERRLA, EOMI Neck: Supple, JVD not distended Respiratory: Clear to auscultation bilaterally, Normal air movement Cardiovascular: Regular rate/rhythm, Normal S1 S2 Gastrointestinal: Normal bowel sounds, No tenderness Musculoskeletal: No tenderness Integumentary: No rashes Neurological: Normal speech, Normal tone, Normal affect Lymphatics: No axilla or inguinal lymphadenopathy Laboratory Data at Discharge: WBC 10.5 K/uL (4.3-10.9) D 10/09/18 04:30 Hgb 11.2 g/dL (12.0-15.0) L 10/09/18 04:30 Hct 32.5 % (36.0-45.0) L 10/09/18 04:30 Plt Count 224 K/uL (152-406) 10/09/18 04:30 PT 13.3 SECONDS (9.5-12.5) H 10/06/18 16:45 INR 1.13 10/06/18 16:45 APTT 31.3 SECONDS (24.3-36.9) 10/06/18 16:45 Sodium 138 mmol/L (136-145) 10/09/18 04:30 Potassium 3.7 mmol/L (3.5-5.1) 10/09/18 13:05 BUN 20 mg/dL (7-18) H 10/09/18 04:30 Creatinine 0.78 mg/dL (0.55-1.3) 10/09/18 04:30 Glucose 218 mg/dL (74-106) H 10/09/18 04:30 Magnesium 1.7 mg/dL (1.8-2.4) L 10/09/18 04:30 Total Bilirubin 0.3 mg/dL (0.2-1.0) 10/09/18 04:30 AST 15 U/L (15-37) 10/09/18 04:30 ALT 14 U/L (12-78) 10/09/18 04:30 Alkaline Phosphatase 86 U/L (45-117) 10/09/18 04:30 Troponin I < 0.02 ng/mL (0.0-0.045) 10/07/18 00:36 Amylase 21 U/L (25-115) L 10/06/18 20:59 Lipase 65 U/L (73-393) L 10/06/18 20:59 Home Medications: Aspirin [Adult Aspirin] 81 mg PO DAILY 10/06/18 Gabapentin [Neurontin] 800 mg PO QID 10/06/18 Amlodipine [Norvasc*] 5 mg PO DAILY #30 tab 10/09/18 Cyanocobalamin [Vitamin B-12*] 1,000 mcg PO DAILY #30 tab 10/09/18 Fluticasone/Salmeterol [Advair Hfa 230-21 Mcg Inhaler] 8 gm IH DAILY #1 aer.w.adap 10/09/18 Metformin HCl 1,000 mg PO BID #60 tablet 10/09/18 Metoprolol Tartrate [Lopressor*] 25 mg PO BID #60 tab 10/09/18 levoFLOXacin [Levaquin*] 750 mg PO DAILY #7 tab 10/09/18 predniSONE [Prednisone*] 20 mg PO BID #14 tab 10/09/18 New Medications: Amlodipine [Norvasc*] 5 mg PO DAILY #30 tab Cyanocobalamin [Vitamin B-12*] 1,000 mcg PO DAILY #30 tab Fluticasone/Salmeterol [Advair Hfa 230-21 Mcg Inhaler] 8 gm IH DAILY #1 aer.w.adap levoFLOXacin [Levaquin*] 750 mg PO DAILY #7 tab Metformin HCl 1,000 mg PO BID #60 tablet Metoprolol Tartrate [Lopressor*] 25 mg PO BID #60 tab predniSONE [Prednisone*] 20 mg PO BID #14 tab Patient Discharge Instructions: Bilateral pneumonia: Blood cultures remained negative. You will finish a course of Levaquin, an antibiotic for 10 days. Prescription sent to your pharmacy. Please follow up with your primary care physician in 1 week for followup. Chronic renal disease: Please follow up with nephrology for further management/evaluation. Information provided to you. COPD exacerbation: Work on smoking cessation. Prescription for prednisone, steroid and Advair, and inhaler sent to pharmacy. Please follow up with pulmonology in 2 weeks. Hypertension: A blood pressure was elevated here in the hospital there for some changes were made to you were blood pressure medications. Your metoprolol was increased to 25 mg twice a day. Any medication called Norvasc was added to her regimen and a prescription was sent to pharmacy. Please continue to monitor your blood pressures at home. CT scan with gallbladder stone: Please follow up with general surgery as an outpatient. Information provided to you, though you may go to a surgeon of your choice. Please discuss this with your primary care physician for any referrals you may need. CT scan with dermoid/teratoma: Please follow up with gynecology for further evaluation of this. You may choose a plywood stock grader of your choice, depending on your insurance. Anemia: continue iron supplementation and B12 supplementation. Diet: ADA Activity: Ad marley Time spent managing pt's care (in minutes): 55
--- NOTE | 2018-10-10 03:59 | PN ---
Date of Progress Note: 10/09/2018 Chief Complaint: Acute kidney injury due to prerenal azotemia in setting of sepsis. History Of Present Illness: The patient has nonoliguric urine output. The patient developed acute k idney injury of mild degree with element of nonoliguric ATN. The patient was found to have proteinur ia and is undergoing workup to screen for monoclonal gammopathy of unknown significance. Review of Systems: Denies fever or chills. Physical Examination: Lungs: Clear to auscultation bilaterally. Heart: S1 and S2. Abdomen: Soft, benign. Extremities: No edema. Laboratory Data: Sodium 143, potassium 4.0, chloride 110, CO2 of 24, BUN 19, creatinine 0.81, and gl ucose 189. Impression And Plan: Acute kidney injury secondary to prerenal azotemia, mild to moderate degree, as sociated with renal hypoperfusion in the setting of volume depletion and sepsis. The patient had karla al ultrasound, which did not show hydronephrosis. The patient is undergoing workup to rule out monoc lonal gammopathy of unknown significance. Continue to monitor proteinuria. Urinalysis did not show any evidence of active urinary sediment. EB/MODL Voice ID: [id number] Report ID: [id number]
[2018-10-14 17:04] LABS: Beta Globulin 24 HR Urine 15 %; Creatinine 24 Hour Urine 0.65 g/24 h (0.50-2.15); Gamma Globulin, 24hr Urine 19 %; Interpretation: REPORT; Urine Alpha-2-Globulins, 24 Hr 35 %; Urine PEP Abn Protein Band1 REPORT; Urine Protein/Creat Ratio 24Hr 565 mg/g creat (<115); Urine Total Volume 24 Hours 3675 mL
== END 2018-10-09 18:50 | disposition home or self-care (01) | DRG 871 ==
LOC: ER 16:06 → ERHOLD 18:33 → 3RD-ICU 20:38 → 4TH 10-07 15:30
PROVIDERS: ADMIT Family Medicine; ATTEND Family Medicine
PROC: 02HV33Z Insertion of Infusion Device into Superior Vena Cava, Percutaneous Approach (ICD-10-PCS; principal; 2018-10-07)
DX: A41.9 Sepsis, unspecified organism (principal); J18.1 Lobar pneumonia, unspecified organism; N17.0 Acute kidney failure with tubular necrosis; N17.9 Acute kidney failure, unspecified; N30.00 Acute cystitis without hematuria; J44.0 Chronic obstructive pulmonary disease with (acute) lower respiratory infection; J44.1 Chronic obstructive pulmonary disease with (acute) exacerbation; R65.20 Severe sepsis without septic shock; I25.10 Atherosclerotic heart disease of native coronary artery without angina pectoris; F17.210 Nicotine dependence, cigarettes, uncomplicated; Z95.1 Presence of aortocoronary bypass graft; E87.6 Hypokalemia; J98.4 Other disorders of lung; D28.7 Benign neoplasm of other specified female genital organs; K80.20 Calculus of gallbladder without cholecystitis without obstruction; E11.22 Type 2 diabetes mellitus with diabetic chronic kidney disease; N18.3 Chronic kidney disease, stage 3 (moderate); E11.40 Type 2 diabetes mellitus with diabetic neuropathy, unspecified; Z79.84 Long term (current) use of oral hypoglycemic drugs; G89.29 Other chronic pain; M54.9 Dorsalgia, unspecified; F32.9 Major depressive disorder, single episode, unspecified; I95.9 Hypotension, unspecified; D63.8 Anemia in other chronic diseases classified elsewhere; E11.65 Type 2 diabetes mellitus with hyperglycemia; I13.10 Hypertensive heart and chronic kidney disease without heart failure, with stage 1 through stage 4 chronic kidney disease, or unspecified chronic kidney disease; R80.9 Proteinuria, unspecified
CPT/HCPCS: 36415; 71045; 71046; 71250; 74176; 76770; 80048; 80053; 80076; 81003; 81015; 82150; 82550; 82553; 82570; 82607; 82728; 82805; 82962; 83036; 83540; 83605; 83690; 83735; 84132; 84145; 84156; 84166; 84439; 84443; 84466; 84484; 85025; 85049; 85610; 85730; 86140; 86334; 87040; 87070; 87081; 87804; 93005; 93306; 94640; 94760; 96365; 96366; 96372; 96375; 99285; J0360; J0456; J0696; J1650; J2405; J2543; J2920; J2930; J3370; J3420; J3475; J7030; J7512; J7605

== ENCOUNTER 2019-07-29 09:30 | Emergency (ER) | payer OTHER ==
--- OUTSIDE RECORDS SUMMARY | 2019-07-29 09:34 | XMS REPORT ---
:1960 [facility] Address [address] [place] [address] Care Team Providers Name Role Phone JOSE [...] PATIENT ID: OR AP, 1 VIEW exam:->post-op [id number] Chest one view. Clinical history: post-op Comparison: July 28, 2017 Discussion: A frontal chest is provided. Cardiomediastinal contours are unchanged. Right IJ line has been removed. There is patchy retrocardiac opacity is slightly improved since the previous exam. A small left effusion is present. No pneumothorax. Signed: Hemant Paige Verified Date/Time: 08/01/2017 09:05:03 Reading Location: [facility] Radiology Reading Room ESIUM 2017-08-01 06:58:00 Test Item Value Reference Range Comments MAGNESIUM (BEAKER) (test kfux=113) 1.8 mg/dL 1.6-2.6 CBC W/PLT COUNT & AUTO [id number] 05:44:00 Test Item Value Reference Range Comments WHITE BLOOD CELL COUNT (BEAKER) (test kysx=626) 6.1 K/ L 3.5-10.5 RED BLOOD CELL COUNT (BEAKER) (test tinz=893) 2.67 M/ L 3.93-5.22 HEMOGLOBIN (BEAKER) (test lvpi=035) 8.5 GM/DL 11.2-15.7 HEMATOCRIT (BEAKER) (test ggce=559) 25.3 % 34.1-44.9 MEAN CORPUSCULAR VOLUME (BEAKER) (test nsyy=320) 94.8 fL 79.4-94.8 MEAN CORPUSCULAR HEMOGLOBIN (BEAKER) (test 31.8 pg 25.6-32.2 byit=720) MEAN CORPUSCULAR HEMOGLOBIN CONC (BEAKER) (test 33.6 GM/DL 32.2-35.5 wepb=674) RED CELL DISTRIBUTION WIDTH (BEAKER) (test 13.6 % 11.7-14.4 rryd=637) PLATELET COUNT (BEAKER) (test lxue=467) 329 K/CU MM 150-450 MEAN PLATELET VOLUME (BEAKER) (test hpgn=247) 10.2 fL 9.4-12.3 NUCLEATED RED BLOOD CELLS (BEAKER) (test 0 /100 WBC 0-0 gqtg=847) NEUTROPHILS RELATIVE PERCENT (BEAKER) (test 72 % zgfj=890) LYMPHOCYTES RELATIVE PERCENT (BEAKER) (test 18 % mrwg=867) MONOCYTES RELATIVE PERCENT (BEAKER) (test 7 % zeoo=190) EOSINOPHILS RELATIVE PERCENT (BEAKER) (test 3 % aans=009) BASOPHILS RELATIVE PERCENT (BEAKER) (test 0 % zewv=932) NEUTROPHILS ABSOLUTE COUNT (BEAKER) (test 4.39 K/ L 1.56-6.13 ycws=488) LYMPHOCYTES ABSOLUTE COUNT (BEAKER) (test 1.11 K/ L 1.18-3.74 aaoy=910) MONOCYTES ABSOLUTE COUNT (BEAKER) (test 0.42 K/ L 0.24-0.36 erzn=821) EOSINOPHILS ABSOLUTE COUNT (BEAKER) (test 0.16 K/ L 0.04-0.36 vznk=157) BASOPHILS ABSOLUTE COUNT (BEAKER) (test 0.02 K/ L 0.01-0.08 orxr=871) IMMATURE GRANULOCYTES-RELATIVE PERCENT (BEAKER) 0 % 0-1 (test yjnm=2926) CBC W/PLT COUNT & AUTO [id number] 07:13:00 Test Item Value Reference Range Comments WHITE BLOOD CELL COUNT (BEAKER) (test mywp=113) 7.0 K/ L 3.5-10.5 RED BLOOD CELL COUNT (BEAKER) (test qqgu=550) 2.61 M/ L 3.93-5.22 HEMOGLOBIN (BEAKER) (test tqnv=407) 8.4 GM/DL 11.2-15.7 HEMATOCRIT (BEAKER) (test bmtb=042) 24.6 % 34.1-44.9 MEAN CORPUSCULAR VOLUME (BEAKER) (test qwyi=452) 94.3 fL 79.4-94.8 MEAN CORPUSCULAR HEMOGLOBIN (BEAKER) (test 32.2 pg 25.6-32.2 owti=624) MEAN CORPUSCULAR HEMOGLOBIN CONC (BEAKER) (test 34.1 GM/DL 32.2-35.5 ajud=751) RED CELL DISTRIBUTION WIDTH (BEAKER) (test 13.7 % 11.7-14.4 yvhv=663) PLATELET COUNT (BEAKER) (test bxcf=925) 322 K/CU MM 150-450 MEAN PLATELET VOLUME (BEAKER) (test whfc=861) 10.1 fL 9.4-12.3 NUCLEATED RED BLOOD CELLS (BEAKER) (test 0 /100 WBC 0-0 elan=960) NEUTROPHILS RELATIVE PERCENT (BEAKER) (test 76 % iqfl=115) LYMPHOCYTES RELATIVE PERCENT (BEAKER) (test 14 % suot=191) MONOCYTES RELATIVE PERCENT (BEAKER) (test 7 % wegc=564) EOSINOPHILS RELATIVE PERCENT (BEAKER) (test 3 % qtao=112) BASOPHILS RELATIVE PERCENT (BEAKER) (test 1 % bxqi=271) NEUTROPHILS ABSOLUTE COUNT (BEAKER) (test 5.26 K/ L 1.56-6.13 rhld=010) LYMPHOCYTES ABSOLUTE COUNT (BEAKER) (test 0.98 K/ L 1.18-3.74 ajpu=886) MONOCYTES ABSOLUTE COUNT (BEAKER) (test 0.46 K/ L 0.24-0.36 wuac=611) EOSINOPHILS ABSOLUTE COUNT (BEAKER) (test 0.19 K/ L 0.04-0.36 icfl=338) BASOPHILS ABSOLUTE COUNT (BEAKER) (test 0.04 K/ L 0.01-0.08 ugvk=522) IMMATURE GRANULOCYTES-RELATIVE PERCENT (BEAKER) 0 % 0-1 (test jppl=5471) [id number] 04:08:00 Test Item Value Reference Range Comments MAGNESIUM (BEAKER) (test mmoa=326) 1.3 mg/dL 1.6-2.6 BASIC METABOLIC [id number] 04:08:00 Test Item Value Reference Range Comments SODIUM (BEAKER) (test 129 meq/L 136-145 dywv=263) POTASSIUM (BEAKER) (test 3.8 meq/L 3.5-5.1 clhp=778) CHLORIDE (BEAKER) (test 97 meq/L 98-107 eezk=772) CO2 (BEAKER) (test 24 meq/L 22-29 gbqw=393) BLOOD UREA NITROGEN 8 mg/dL 7-21 (BEAKER) (test igca=422) CREATININE (BEAKER) (test 0.73 mg/dL 0.57-1.25 puqz=690) GLUCOSE RANDOM (BEAKER) 138 mg/dL 70-105 (test kmvz=236) CALCIUM (BEAKER) (test 8.7 mg/dL 8.4-10.2 nbba=487) EGFR (BEAKER) (test 82 mL/min/1.73 sq m ESTIMATED GFR IS NOT vyzx=7839) ACCURATE CREATININE CLEARANCE IN PREDICTING GLOMERULAR FILTRATION RATE. ESTIMATED GFR IS NOT APPLICABLE FOR DIALYSIS PATIENTS. POCT-GLUCOSE [id number] 12:53:00 Test Item Value Reference Range Comments POC-GLUCOSE METER (BEAKER) 192 mg/dL 70-110 TESTED AT [place] [id number] [facility] (test wynb=8584) [place] [address] POCT-GLUCOSE [id number] 07:54:00 Test Item Value Reference Range Comments POC-GLUCOSE METER (BEAKER) 129 mg/dL 70-110 TESTED AT [address] (test kmjr=6421) [place] [id number] BASIC METABOLIC [id number] 05:37:00 Test Item Value Reference Range Comments SODIUM (BEAKER) (test 129 meq/L 136-145 gpzu=634) POTASSIUM (BEAKER) (test 3.2 meq/L 3.5-5.1 whlz=101) CHLORIDE (BEAKER) (test 96 meq/L 98-107 lymj=710) CO2 (BEAKER) (test 24 meq/L 22-29 egre=178) BLOOD UREA NITROGEN 10 mg/dL 7-21 (BEAKER) (test yule=255) CREATININE (BEAKER) (test 0.79 mg/dL 0.57-1.25 upyh=340) GLUCOSE RANDOM (BEAKER) 119 mg/dL 70-105 (test qryj=666) CALCIUM (BEAKER) (test 8.9 mg/dL 8.4-10.2 kdbx=568) EGFR (BEAKER) (test 75 mL/min/1.73 sq m ESTIMATED GFR IS NOT coxx=0302) ACCURATE CREATININE CLEARANCE IN PREDICTING GLOMERULAR FILTRATION RATE. ESTIMATED GFR IS NOT APPLICABLE FOR DIALYSIS PATIENTS. CBC W/PLT COUNT & AUTO [id number] 05:07:00 Test Item Value Reference Range Comments WHITE BLOOD CELL COUNT (BEAKER) (test snpq=831) 7.6 K/ L 3.5-10.5 RED BLOOD CELL COUNT (BEAKER) (test ylaf=724) 2.48 M/ L 3.93-5.22 HEMOGLOBIN (BEAKER) (test ouby=703) 7.8 GM/DL 11.2-15.7 HEMATOCRIT (BEAKER) (test xcpz=284) 22.9 % 34.1-44.9 MEAN CORPUSCULAR VOLUME (BEAKER) (test mmtu=734) 92.3 fL 79.4-94.8 MEAN CORPUSCULAR HEMOGLOBIN (BEAKER) (test 31.5 pg 25.6-32.2 ztbi=239) MEAN CORPUSCULAR HEMOGLOBIN CONC (BEAKER) (test 34.1 GM/DL 32.2-35.5 ietx=661) RED CELL DISTRIBUTION WIDTH (BEAKER) (test 14.0 % 11.7-14.4 ycyn=960) PLATELET COUNT (BEAKER) (test krad=726) 286 K/CU MM 150-450 MEAN PLATELET VOLUME (BEAKER) (test jiqs=641) 10.1 fL 9.4-12.3 NUCLEATED RED BLOOD CELLS (BEAKER) (test 0 /100 WBC 0-0 hqyg=892) NEUTROPHILS RELATIVE PERCENT (BEAKER) (test 76 % kwrf=006) LYMPHOCYTES RELATIVE PERCENT (BEAKER) (test 13 % tsow=143) MONOCYTES RELATIVE PERCENT (BEAKER) (test 8 % vzoe=727) EOSINOPHILS RELATIVE PERCENT (BEAKER) (test 2 % uyvm=552) BASOPHILS RELATIVE PERCENT (BEAKER) (test 1 % tglx=869) NEUTROPHILS ABSOLUTE COUNT (BEAKER) (test 5.75 K/ L 1.56-6.13 xbrc=745) LYMPHOCYTES ABSOLUTE COUNT (BEAKER) (test 0.98 K/ L 1.18-3.74 owzc=387) MONOCYTES ABSOLUTE COUNT (BEAKER) (test 0.64 K/ L 0.24-0.36 fvsn=539) EOSINOPHILS ABSOLUTE COUNT (BEAKER) (test 0.16 K/ L 0.04-0.36 wqor=083) BASOPHILS ABSOLUTE COUNT (BEAKER) (test 0.04 K/ L 0.01-0.08 jmxk=889) IMMATURE GRANULOCYTES-RELATIVE PERCENT (BEAKER) 1 % 0-1 (test rvtb=7213) POCT-GLUCOSE [id number] 21:03:00 Test Item Value Reference Range Comments POC-GLUCOSE METER (BEAKER) 239 mg/dL 70-110 TESTED AT [address] (test kiek=1300) [place] [address] POCT-GLUCOSE [id number] 17:20:00 Test Item Value Reference Range Comments POC-GLUCOSE METER (BEAKER) 201 mg/dL 70-110 TESTED AT [address] (test xvyq=4146) [place] [address] HEMOGLOBIN AND [id number] 16:41:00 Test Item Value Reference Range Comments HEMOGLOBIN (BEAKER) (test gwrt=437) 9.8 GM/DL 11.2-15.7 HEMATOCRIT (BEAKER) (test mnsp=223) 29.3 % 34.1-44.9 Draw after transfusion has been completed.POCT-GLUCOSE [id number] 12:59:00 Test Item Value Reference Range Comments POC-GLUCOSE METER (BEAKER) 133 mg/dL 70-110 TESTED AT [address] (test ddhh=7017) [place] [address] URINE [id number] 11:53:00 Test Item Value Reference Range Comments CULTURE (BEAKER) (test xkjm=1955) No growth POCT-GLUCOSE [id number] 09:34:00 Test Item Value Reference Range Comments POC-GLUCOSE METER (BEAKER) 97 mg/dL 70-110 TESTED AT [address] (test ouks=8846) [place] [address] CBC W/PLT COUNT & AUTO [id number] 05:55:00 Test Item Value Reference Range Comments WHITE BLOOD CELL COUNT (BEAKER) (test ivih=104) 9.1 K/ L 3.5-10.5 RED BLOOD CELL COUNT (BEAKER) (test oedn=043) 2.11 M/ L 3.93-5.22 HEMOGLOBIN (BEAKER) (test ideq=209) 6.8 GM/DL 11.2-15.7 HEMATOCRIT (BEAKER) (test euzj=326) 20.2 % 34.1-44.9 MEAN CORPUSCULAR VOLUME (BEAKER) (test jzbk=511) 95.7 fL 79.4-94.8 MEAN CORPUSCULAR HEMOGLOBIN (BEAKER) (test 32.2 pg 25.6-32.2 baae=171) MEAN CORPUSCULAR HEMOGLOBIN CONC (BEAKER) (test 33.7 GM/DL 32.2-35.5 bpsc=977) RED CELL DISTRIBUTION WIDTH (BEAKER) (test 13.7 % 11.7-14.4 zdco=936) PLATELET COUNT (BEAKER) (test ibew=296) 280 K/CU MM 150-450 MEAN PLATELET VOLUME (BEAKER) (test ezjb=805) 10.3 fL 9.4-12.3 NUCLEATED RED BLOOD CELLS (BEAKER) (test 0 /100 WBC 0-0 qiuf=182) NEUTROPHILS RELATIVE PERCENT (BEAKER) (test 77 % qcio=159) LYMPHOCYTES RELATIVE PERCENT (BEAKER) (test 11 % zwax=838) MONOCYTES RELATIVE PERCENT (BEAKER) (test 10 % tegh=633) EOSINOPHILS RELATIVE PERCENT (BEAKER) (test 2 % cxuy=725) BASOPHILS RELATIVE PERCENT (BEAKER) (test 0 % ngzy=792) NEUTROPHILS ABSOLUTE COUNT (BEAKER) (test 7.01 K/ L 1.56-6.13 drng=696) LYMPHOCYTES ABSOLUTE COUNT (BEAKER) (test 0.98 K/ L 1.18-3.74 ajmu=021) MONOCYTES ABSOLUTE COUNT (BEAKER) (test 0.89 K/ L 0.24-0.36 wdvo=126) EOSINOPHILS ABSOLUTE COUNT (BEAKER) (test 0.19 K/ L 0.04-0.36 oawi=881) BASOPHILS ABSOLUTE COUNT (BEAKER) (test 0.01 K/ L 0.01-0.08 pgtv=585) IMMATURE GRANULOCYTES-RELATIVE PERCENT (BEAKER) 1 % 0-1 (test mhsg=2524) BASIC METABOLIC [id number] 05:53:00 Test Item Value Reference Range Comments SODIUM (BEAKER) (test 129 meq/L 136-145 dyfu=736) POTASSIUM (BEAKER) (test 3.4 meq/L 3.5-5.1 tlnf=673) CHLORIDE (BEAKER) (test 96 meq/L 98-107 uvle=192) CO2 (BEAKER) (test 22 meq/L 22-29 gahj=942) BLOOD UREA NITROGEN 12 mg/dL 7-21 (BEAKER) (test jfer=763) CREATININE (BEAKER) (test 0.74 mg/dL 0.57-1.25 mamd=016) GLUCOSE RANDOM (BEAKER) 86 mg/dL 70-105 (test tehc=344) CALCIUM (BEAKER) (test 9.2 mg/dL 8.4-10.2 fvmk=633) EGFR (BEAKER) (test 81 mL/min/1.73 sq m ESTIMATED GFR IS NOT lumo=9531) ACCURATE CREATININE CLEARANCE IN PREDICTING GLOMERULAR FILTRATION RATE. ESTIMATED GFR IS NOT APPLICABLE FOR DIALYSIS PATIENTS. POCT-GLUCOSE [id number] 21:23:00 Test Item Value Reference Range Comments POC-GLUCOSE METER (BEAKER) 142 mg/dL 70-110 TESTED AT [address] (test zviu=5723) [facility] [address] RAD, CHEST, 1 VIEW, NON [id number] 15:31:00Reason for exam:->post ct removalFINAL REPORT TECHNIQUE: [...] [place] Verified Date/Time: 07/28/2017 15:31:00 Reading Location: [facility] Radiology Reading Room POCT-GLUCOSE [id number] 12:12:00 Test Item Value Reference Range Comments POC-GLUCOSE METER (BEAKER) 100 mg/dL 70-110 TESTED AT [facility] [address] [facility] (test cenw=9327) [facility] [address] POCT-GLUCOSE [id number] 06:41:00 Test Item Value Reference Range Comments POC-GLUCOSE METER (BEAKER) 143 mg/dL 70-110 TESTED AT [facility] [address] [facility] (test hyuw=5185) [facility] [address] RAD, CHEST, 1 VIEW, NON [id number] 05:13:00Reason for exam:->Post opShould this be performed [...] Stable surgical changes.Additional findings: None. Signed: JR Dena, Terrance Cervantes Verified Date/Time: 07/28/2017 05:13:19 Reading Location: [address] Body Reading Room BLOOD GAS, [id number] 05:03:00 Test Item Value Reference Range Comments PH ARTERIAL (BEAKER) (test xhoe=976) 7.39 7.35-7.45 PCO2 ARTERIAL (BEAKER) (test toln=646) 39 mmHg 35-45 PO2 ARTERIAL (BEAKER) (test gtbr=936) 105 mmHg 80-90 O2 SATURATION ARTERIAL (BEAKER) (test gfks=521) 97.9 % 96.0-97.0 HCO3 ARTERIAL (BEAKER) (test psau=232) 23 mmol/L 21-29 BASE EXCESS ARTERIAL (BEAKER) (test idwr=768) -1.8 mmol/L -2.0-3.0 PATIENT TEMPERATURE (BEAKER) (test xbmz=9025) 36.6 C FIO2 (BEAKER) (test lnzt=2139) 36.0 % [id number] 04:52:00 Test Item Value Reference Range Comments PROTIME (BEAKER) (test ybtz=124) 14.9 seconds 11.7-14.7 INR (BEAKER) (test aasn=820) 1.2 <=5.9 PARTIAL THROMBOPLASTIN TIME (BEAKER) (test 36.9 seconds 22.5-36.0 njhn=535) RECOMMENDED COUMADIN/WARFARIN INR THERAPY RANGESSTANDARD DOSE: 2.0 - 3.0 Includes: PROPHYLAXIS forvenous thrombosis, systemic embolization; TREATMENT for venous thrombosis and/or pulmonary embolus.HIGH RISK: Target INR is 2.5-3.5 for patients with mechanical heart valves.[id number] 04:39:00 Test Item Value Reference Range Comments MAGNESIUM (BEAKER) (test prho=136) 1.9 mg/dL 1.6-2.6 BASIC METABOLIC [id number] 04:39:00 Test Item Value Reference Range Comments SODIUM (BEAKER) (test 134 meq/L 136-145 atba=379) POTASSIUM (BEAKER) (test 4.0 meq/L 3.5-5.1 rtki=979) CHLORIDE (BEAKER) (test 103 meq/L 98-107 zavw=970) CO2 (BEAKER) (test 23 meq/L 22-29 ngle=317) BLOOD UREA NITROGEN 14 mg/dL 7-21 (BEAKER) (test nekd=764) CREATININE (BEAKER) (test 0.81 mg/dL 0.57-1.25 fvkf=899) GLUCOSE RANDOM (BEAKER) 148 mg/dL 70-105 (test ajth=573) CALCIUM (BEAKER) (test 9.4 mg/dL 8.4-10.2 ouoa=116) EGFR (BEAKER) (test 73 mL/min/1.73 sq m ESTIMATED GFR IS NOT jwby=6020) ACCURATE CREATININE CLEARANCE IN PREDICTING GLOMERULAR FILTRATION RATE. ESTIMATED GFR IS NOT APPLICABLE FOR DIALYSIS PATIENTS. CBC W/PLT COUNT & AUTO [id number] 04:24:00 Test Item Value Reference Range Comments WHITE BLOOD CELL COUNT (BEAKER) (test gakc=953) 7.9 K/ L 3.5-10.5 RED BLOOD CELL COUNT (BEAKER) (test gljr=848) 2.49 M/ L 3.93-5.22 HEMOGLOBIN (BEAKER) (test mgyp=400) 7.9 GM/DL 11.2-15.7 HEMATOCRIT (BEAKER) (test cuqv=349) 23.6 % 34.1-44.9 MEAN CORPUSCULAR VOLUME (BEAKER) (test uxzw=507) 94.8 fL 79.4-94.8 MEAN CORPUSCULAR HEMOGLOBIN (BEAKER) (test 31.7 pg 25.6-32.2 scqm=141) MEAN CORPUSCULAR HEMOGLOBIN CONC (BEAKER) (test 33.5 GM/DL 32.2-35.5 olqq=092) RED CELL DISTRIBUTION WIDTH (BEAKER) (test 15.1 % 11.7-14.4 yiqh=600) PLATELET COUNT (BEAKER) (test himh=011) 284 K/CU MM 150-450 MEAN PLATELET VOLUME (BEAKER) (test vfqb=949) 10.1 fL 9.4-12.3 NUCLEATED RED BLOOD CELLS (BEAKER) (test 0 /100 WBC 0-0 cfuq=730) NEUTROPHILS RELATIVE PERCENT (BEAKER) (test 77 % slvx=774) LYMPHOCYTES RELATIVE PERCENT (BEAKER) (test 8 % zxsh=625) MONOCYTES RELATIVE PERCENT (BEAKER) (test 14 % xrqb=551) EOSINOPHILS RELATIVE PERCENT (BEAKER) (test 1 % uqwk=736) BASOPHILS RELATIVE PERCENT (BEAKER) (test 0 % cihx=657) NEUTROPHILS ABSOLUTE COUNT (BEAKER) (test 6.04 K/ L 1.56-6.13 erpw=791) LYMPHOCYTES ABSOLUTE COUNT (BEAKER) (test 0.62 K/ L 1.18-3.74 ejha=909) MONOCYTES ABSOLUTE COUNT (BEAKER) (test 1.12 K/ L 0.24-0.36 lndw=499) EOSINOPHILS ABSOLUTE COUNT (BEAKER) (test 0.04 K/ L 0.04-0.36 tfng=054) BASOPHILS ABSOLUTE COUNT (BEAKER) (test 0.02 K/ L 0.01-0.08 qiez=237) IMMATURE GRANULOCYTES-RELATIVE PERCENT (BEAKER) 0 % 0-1 (test sdgu=7341) [id number] 01:03:00 Test Item Value Reference Range Comments POTASSIUM (BEAKER) (test szou=340) 4.0 meq/L 3.5-5.1 [id number] 01:03:00 Test Item Value Reference Range Comments MAGNESIUM (BEAKER) (test rcwn=266) 2.0 mg/dL 1.6-2.6 POCT-GLUCOSE [id number] 01:01:00 Test Item Value Reference Range Comments POC-GLUCOSE METER (BEAKER) 150 mg/dL 70-110 TESTED AT [address] (test jxxk=8724) [place] [id number] HEMOGLOBIN AND [id number] 00:51:00 Test Item Value Reference Range Comments HEMOGLOBIN (BEAKER) (test phgn=470) 8.3 GM/DL 11.2-15.7 HEMATOCRIT (BEAKER) (test rcsc=361) 24.0 % 34.1-44.9 CALCIUM, [id number] 00:48:00 Test Item Value Reference Range Comments CALCIUM IONIZED (BEAKER) (test hmiu=885) 1.25 mmol/L 1.12-1.27 PH, BLOOD (BEAKER) (test peyb=5469) 7.39 BLOOD GAS, [id number] 20:03:00 Test Item Value Reference Range Comments PH ARTERIAL (BEAKER) (test rgrx=682) 7.41 7.35-7.45 PCO2 ARTERIAL (BEAKER) (test jadt=313) 37 mmHg 35-45 PO2 ARTERIAL (BEAKER) (test tctr=262) 103 mmHg 80-90 O2 SATURATION ARTERIAL (BEAKER) (test zxkl=145) 97.8 % 96.0-97.0 HCO3 ARTERIAL (BEAKER) (test ylcx=845) 23 mmol/L 21-29 BASE EXCESS ARTERIAL (BEAKER) (test lfda=066) -1.8 mmol/L -2.0-3.0 PATIENT TEMPERATURE (BEAKER) (test ozof=1084) 36.7 C FIO2 (BEAKER) (test jqyu=6468) 32.0 % POCT-GLUCOSE [id number] 18:26:00 Test Item Value Reference Range Comments POC-GLUCOSE METER (BEAKER) 169 mg/dL 70-110 TESTED AT [address] (test cebu=4544) [facility] [address] BLOOD GAS, [id number] 16:32:00 Test Item Value Reference Range Comments PH ARTERIAL (BEAKER) (test fnzh=911) 7.45 7.35-7.45 PCO2 ARTERIAL (BEAKER) (test zqfu=059) 32 mmHg 35-45 PO2 ARTERIAL (BEAKER) (test msut=496) 155 mmHg 80-90 O2 SATURATION ARTERIAL (BEAKER) (test gint=151) 99.1 % 96.0-97.0 HCO3 ARTERIAL (BEAKER) (test nubh=614) 22 mmol/L 21-29 BASE EXCESS ARTERIAL (BEAKER) (test snju=880) -1.6 mmol/L -2.0-3.0 PATIENT TEMPERATURE (BEAKER) (test lvxj=4474) 36.7 C FIO2 (BEAKER) (test decj=4749) 40.0 % HEMOGLOBIN AND [id number] 15:45:00 Test Item Value Reference Range Comments HEMOGLOBIN (BEAKER) (test emod=663) 8.9 GM/DL 11.2-15.7 HEMATOCRIT (BEAKER) (test radr=034) 25.6 % 34.1-44.9 FACTOR 10 [id number] 15:30:00 Test Item Value Reference Range Comments FACTOR X ACTIVITY (BEAKER) (test nnho=458) 79.0 % 70.0-120.0 [id number] 13:47:00 Test Item Value Reference Range Comments FIBRINOGEN LEVEL (BEAKER) (test bduy=436) 567 mg/dl 225-434 PROTHROMBIN [id number] 13:47:00 Test Item Value Reference Range Comments PROTIME (BEAKER) (test jqgp=500) 17.5 seconds 11.7-14.7 INR (BEAKER) (test tmkj=539) 1.4 <=5.9 RECOMMENDED COUMADIN/WARFARIN INR THERAPY RANGESSTANDARD DOSE: 2.0 - 3.0 Includes: PROPHYLAXIS forvenous thrombosis, systemic embolization; TREATMENT for venous thrombosis and/or pulmonary embolus.HIGH RISK: Target INR is 2.5-3.5 for patients with mechanical heart valves.[id number] 13:47:00 Test Item Value Reference Range Comments PARTIAL THROMBOPLASTIN TIME (BEAKER) (test 35.0 seconds 22.5-36.0 efgw=900) RAD, CHEST, 1 VIEW, NON [id number] 13:16:00Reason for exam:->Post OpShould this be performed [...] MDReport Verified Date/Time: 07/27/2017 13:16:03 Reading Location: [address] Consult Reading Room Electronicallysigned by: HEMANT PAIGE M.D. on 07/27/2017 01:16 PMTHROMBOELASTOGRAPH (TEG)2017-07-27 12:58:00 Test Item Value Reference Range Comments TEG ACTIVATED CLOTTING TIME (BEAKER) (test 4.5 minutes 4.0-7.0 zpnw=2019) TEG FIBRINOGEN ACTIVITY (BEAKER) (test 77.4 degrees 61.0-73.0 hllu=0325) TEG PLT. AGGREGATION (BEAKER) (test cafy=0461) 76.9 MM 55.0-65.0 TEG FIBRINOLYSIS (BEAKER) (test yffb=4083) 0.0 % 0.0-5.0 TGH ACTIVATED CLOTTING TIME (BEAKER) (test 4.3 minutes 4.0-7.0 xgyr=2933) TGH FIBRINOGEN ACTIVITY (BEAKER) (test 75.7 degrees 61.0-73.0 cpjx=8895) TGH PLT. AGGREGATION (BEAKER) (test hmze=7011) 73.8 MM 55.0-65.0 TGH FIBRINOLYSIS (BEAKER) (test sdku=2955) 0.0 % 0.0-5.0 CBC W/PLT COUNT & AUTO [id number] 12:37:00 Test Item Value Reference Range Comments WHITE BLOOD CELL COUNT (BEAKER) (test vxcw=043) 13.7 K/ L 3.5-10.5 RED BLOOD CELL COUNT (BEAKER) (test tjnb=768) 2.29 M/ L 3.93-5.22 HEMOGLOBIN (BEAKER) (test jvtd=857) 7.8 GM/DL 11.2-15.7 HEMATOCRIT (BEAKER) (test gqel=461) 22.5 % 34.1-44.9 MEAN CORPUSCULAR VOLUME (BEAKER) (test bgyj=337) 98.3 fL 79.4-94.8 MEAN CORPUSCULAR HEMOGLOBIN (BEAKER) (test 34.1 pg 25.6-32.2 obin=382) MEAN CORPUSCULAR HEMOGLOBIN CONC (BEAKER) (test 34.7 GM/DL 32.2-35.5 wxib=947) RED CELL DISTRIBUTION WIDTH (BEAKER) (test 13.6 % 11.7-14.4 ietg=265) PLATELET COUNT (BEAKER) (test sjuf=143) 295 K/CU MM 150-450 MEAN PLATELET VOLUME (BEAKER) (test adzo=242) 9.8 fL 9.4-12.3 NUCLEATED RED BLOOD CELLS (BEAKER) (test 0 /100 WBC 0-0 sqdz=098) NEUTROPHILS RELATIVE PERCENT (BEAKER) (test 87 % lhwn=765) LYMPHOCYTES RELATIVE PERCENT (BEAKER) (test 8 % ltdx=802) MONOCYTES RELATIVE PERCENT (BEAKER) (test 4 % help=126) EOSINOPHILS RELATIVE PERCENT (BEAKER) (test 1 % tqsh=420) BASOPHILS RELATIVE PERCENT (BEAKER) (test 0 % mwfc=148) NEUTROPHILS ABSOLUTE COUNT (BEAKER) (test 11.94 K/ L 1.56-6.13 ntkn=257) LYMPHOCYTES ABSOLUTE COUNT (BEAKER) (test 1.03 K/ L 1.18-3.74 twor=912) MONOCYTES ABSOLUTE COUNT (BEAKER) (test 0.48 K/ L 0.24-0.36 zzoj=465) EOSINOPHILS ABSOLUTE COUNT (BEAKER) (test 0.08 K/ L 0.04-0.36 hmlk=258) BASOPHILS ABSOLUTE COUNT (BEAKER) (test 0.02 K/ L 0.01-0.08 eudc=665) IMMATURE GRANULOCYTES-RELATIVE PERCENT (BEAKER) 1 % 0-1 (test ncqy=5490) [id number] 12:19:00 Test Item Value Reference Range Comments MAGNESIUM (BEAKER) (test kuho=400) 2.9 mg/dL 1.6-2.6 COMPREHENSIVE METABOLIC [id number] 12:19:00 Test Item Value Reference Range Comments TOTAL PROTEIN (BEAKER) 5.7 gm/dL 6.0-8.3 (test nstg=166) ALBUMIN (BEAKER) (test 3.1 g/dL 3.5-5.0 ikef=2101) ALKALINE PHOSPHATASE 69 U/L 40-150 (BEAKER) (test wuzg=127) BILIRUBIN TOTAL (BEAKER) 0.9 mg/dL 0.2-1.2 (test czvx=904) SODIUM (BEAKER) (test 134 meq/L 136-145 mjbi=160) POTASSIUM (BEAKER) (test 4.7 meq/L 3.5-5.1 zklg=342) CHLORIDE (BEAKER) (test 101 meq/L 98-107 unbu=816) CO2 (BEAKER) (test 22 meq/L 22-29 otir=653) BLOOD UREA NITROGEN 12 mg/dL 7-21 (BEAKER) (test uzyj=879) CREATININE (BEAKER) (test 0.77 mg/dL 0.57-1.25 ttzy=217) GLUCOSE RANDOM (BEAKER) 200 mg/dL 70-105 (test gyla=830) CALCIUM (BEAKER) (test 10.8 mg/dL 8.4-10.2 hsin=435) AST (SGOT) (BEAKER) (test 32 U/L 5-34 chvn=772) ALT (SGPT) (BEAKER) (test 34 U/L 6-55 etwn=654) EGFR (BEAKER) (test 77 mL/min/1.73 sq m ESTIMATED GFR IS NOT csdg=9452) ACCURATE CREATININE CLEARANCE IN PREDICTING GLOMERULAR FILTRATION RATE. ESTIMATED GFR IS NOT APPLICABLE FOR DIALYSIS PATIENTS. LACTIC ACID, ARTERIAL, WHOLE [id number] 12:14:00 Test Item Value Reference Range Comments LACTATE BLOOD ARTERIAL (2) (BEAKER) (test 0.9 mmol/L 0.5-2.2 pblm=0213) Effective 12/31/2015: Units/Reference Range ChangeNew: 0.5-2.2 mmol/L Previous: 5 -20 mg/dLOXYGEN SATURATION, [id number] 11:46:00 Test Item Value Reference Range Comments O2 SATURATION (MEASURED) (BEAKER) (test qpci=3852) 81.7 % BLOOD GAS, [id number] 11:44:00 Test Item Value Reference Range Comments PH ARTERIAL (BEAKER) (test gwdc=701) 7.46 7.35-7.45 PCO2 ARTERIAL (BEAKER) (test ujky=660) 33 mmHg 35-45 PO2 ARTERIAL (BEAKER) (test errh=763) 221 mmHg 80-90 O2 SATURATION ARTERIAL (BEAKER) (test wylf=330) 99.5 % 96.0-97.0 HCO3 ARTERIAL (BEAKER) (test fpwm=347) 23 mmol/L 21-29 BASE EXCESS ARTERIAL (BEAKER) (test hldf=320) -0.9 mmol/L -2.0-3.0 PATIENT TEMPERATURE (BEAKER) (test jbct=4110) 34.2 C FIO2 (BEAKER) (test oivt=0762) 60.0 % SODIUM NA-STAT [id number] 11:44:00 Test Item Value Reference Range Comments SODIUM (BEAKER) (test uhng=881) 130 meq/L 135-148 GLUCOSE-STAT [id number] 11:44:00 Test Item Value Reference Range Comments GLUCOSE RANDOM (BEAKER) (test zgxd=478) 194 mg/dL 70-110 HGB/HCT (H&H) - STAT [id number] 11:44:00 Test Item Value Reference Range Comments HEMOGLOBIN (BEAKER) (test lqpg=092) 8.1 g/dL 12.0-15.0 HEMATOCRIT (BEAKER) (test sbig=160) 24.0 % 36.0-45.0 FILTER IONIZED [id number] 11:44:00 Test Item Value Reference Range Comments FILTER IONIZED CALCIUM (BEAKER) (test kvkr=8658) 1.35 nnol/L Reference Range: No NormalsPOTASSIUM-STAT [id number] 11:43:00 Test Item Value Reference Range Comments POTASSIUM (BEAKER) (test aagi=899) 4.5 meq/L 3.6-5.5 THROMBOELASTOGRAPH (TEG)2017-07-27 11:29:00 Test Item Value Reference Range Comments TEG ACTIVATED CLOTTING TIME (BEAKER) (test 6.9 minutes 4.0-7.0 mluz=6533) TEG FIBRINOGEN ACTIVITY (BEAKER) (test 69.8 degrees 61.0-73.0 iukn=3296) TEG PLT. AGGREGATION (BEAKER) (test vjxd=9377) 50.7 MM 55.0-65.0 TGH ACTIVATED CLOTTING TIME (BEAKER) (test 7.4 minutes 4.0-7.0 ngme=1010) [facility] FIBRINOGEN ACTIVITY (BEAKER) (test 77.9 degrees 61.0-73.0 fquc=5859) [facility] PLT. AGGREGATION (BEAKER) (test hyaz=6475) 58.6 MM 55.0-65.0 PLATELET [id number] 11:08:00 Test Item Value Reference Range Comments PLATELET COUNT (BEAKER) (test ipfv=536) 142 K/CU MM 150-450 CALCIUM, [id number] 10:35:00 Test Item Value Reference Range Comments CALCIUM IONIZED (BEAKER) (test hdck=483) 0.91 mmol/L 1.12-1.27 PH, BLOOD (BEAKER) (test jzow=8898) 7.31 BLOOD GAS, [id number] 10:35:00 Test Item Value Reference Range Comments PH ARTERIAL (BEAKER) (test ktrt=131) 7.34 7.35-7.45 PCO2 ARTERIAL (BEAKER) (test noyo=103) 41 mmHg 35-45 PO2 ARTERIAL (BEAKER) (test phcz=362) 204 mmHg 80-90 O2 SATURATION ARTERIAL (BEAKER) (test hupj=245) 99.3 % 96.0-97.0 HCO3 ARTERIAL (BEAKER) (test ksrv=438) 22 mmol/L 21-29 BASE EXCESS ARTERIAL (BEAKER) (test silx=121) -3.8 mmol/L -2.0-3.0 PATIENT TEMPERATURE (BEAKER) (test yijg=1431) 35.0 C FIO2 (BEAKER) (test ifhm=9393) 100.0 % SODIUM NA-STAT [id number] 10:35:00 Test Item Value Reference Range Comments SODIUM (BEAKER) (test gscx=042) 130 meq/L 135-148 GLUCOSE-STAT [id number] 10:35:00 Test Item Value Reference Range Comments GLUCOSE RANDOM (BEAKER) (test fgpv=554) 194 mg/dL 70-110 HGB/HCT (H&H) - STAT [id number] 10:35:00 Test Item Value Reference Range Comments [facility] (test ztlx=870) 10.3 g/dL 12.0-15.0 H[facility]AT[facility]CRIT [facility] (test jncy=359) 30.0 % 36.0-45.0 POTASSIUM-STAT [id number] 10:34:00 Test Item Value Reference Range Comments [facility] (test nzlk=235) 5.1 meq/L 3.6-5.5 [id number] 10:26:00 Test Item Value Reference Range Comments ACTIVATED CLOTTING TIME 131 sec TESTED AT [address] (BEAKER) (test kmgh=073) [place] [address] [id number] 10:26:00 Test Item Value Reference Range Comments ACTIVATED CLOTTING TIME 521 sec TESTED AT [address] (BEAKER) (test gdlm=669) [place] [address] [id number] 10:26:00 Test Item Value Reference Range Comments ACTIVATED CLOTTING TIME 521 sec TESTED AT [address] (BEAKER) (test nkjy=687) [place] [address] [id number] 10:26:00 Test Item Value Reference Range Comments ACTIVATED CLOTTING TIME 505 sec TESTED AT [address] [facility] (test einn=681) [place] [address] [id number] 10:17:00 Test Item Value Reference Range Comments FIBRINOGEN LEVEL ([facility]) (test myle=316) 536 mg/dl 225-434 [id number] 10:17:00 Test Item Value Reference Range Comments PARTIAL THROMBOPLASTIN TIME (BEAKER) (test 38.7 seconds 22.5-36.0 ywqc=874) PROTHROMBIN [id number] 10:16:00 Test Item Value Reference Range Comments PROTIME ([facility]) (test bggn=336) 18.8 seconds 11.7-14.7 INR ([facility] (test hpwl=291) 1.6 <=5.9 RECOMMENDED COUMADIN/WARFARIN INR THERAPY RANGESSTANDARD DOSE: 2.0 - 3.0 Includes: PROPHYLAXIS forvenous thrombosis, systemic embolization; TREATMENT for venous thrombosis and/or pulmonary embolus.HIGH RISK: Target INR is 2.5-3.5 for patients with mechanical heart valves.PLATELET AGGREGATION: FUNCTION [id number] 10:14:00 Test Item Value Reference Range Comments WEAK ADP RESULT(BEAKER) (test 51 % 60-91 btdl=3949) PLATELET FUNCTION SCREEN 50-59% indicates mild platelet INTERP (BEAKER) (test dysfunction hfgl=5807) [id number] Yuri Quijano M.D. (electonic (BEAKER) (test hpai=7847) signature) PLATELET COUNT AGG (BEAKER) 410 K/CU MM 150-450 (test wvhb=0932) for patients on clopidogrel in past two weeksCALCIUM, [id number] 09:46:00 Test Item Value Reference Range Comments CALCIUM IONIZED (BEAKER) (test phhs=389) 1.41 mmol/L 1.12-1.27 PH, BLOOD (BEAKER) (test xixi=2648) 7.30 BLOOD GAS, [id number] 09:45:00 Test Item Value Reference Range Comments PH ARTERIAL (BEAKER) (test qmlr=165) 7.32 7.35-7.45 PCO2 ARTERIAL (BEAKER) (test hspx=190) 42 mmHg 35-45 PO2 ARTERIAL (BEAKER) (test ycgg=674) 438 mmHg 80-90 O2 SATURATION ARTERIAL (BEAKER) (test ffco=125) 99.8 % 96.0-97.0 HCO3 ARTERIAL (BEAKER) (test yuor=853) 21 mmol/L 21-29 BASE EXCESS ARTERIAL (BEAKER) (test eiff=824) -4.9 mmol/L -2.0-3.0 PATIENT TEMPERATURE (BEAKER) (test jfkb=3643) 35.6 C FIO2 (BEAKER) (test jrhj=4746) 100.0 % SODIUM NA-STAT [id number] 09:45:00 Test Item Value Reference Range Comments SODIUM (BEAKER) (test yhsq=245) 124 meq/L 135-148 POTASSIUM-STAT [id number] 09:45:00 Test Item Value Reference Range Comments POTASSIUM (BEAKER) (test geiy=179) 5.8 meq/L 3.6-5.5 GLUCOSE-STAT [id number] 09:45:00 Test Item Value Reference Range Comments GLUCOSE RANDOM (BEAKER) (test rffw=786) 172 mg/dL 70-110 HGB/HCT (H&H) - STAT [id number] 09:45:00 Test Item Value Reference Range Comments HEMOGLOBIN (BEAKER) (test yffe=270) 8.6 g/dL 12.0-15.0 HEMATOCRIT (BEAKER) (test tyta=785) 25.0 % 36.0-45.0 BLOOD GAS, [id number] 09:31:00 Test Item Value Reference Range Comments PH ARTERIAL (BEAKER) (test bywd=646) 7.35 7.35-7.45 PCO2 ARTERIAL (BEAKER) (test szdk=328) 39 mmHg 35-45 PO2 ARTERIAL (BEAKER) (test bqbz=405) 320 mmHg 80-90 O2 SATURATION ARTERIAL (BEAKER) (test wmuw=697) 99.7 % 96.0-97.0 HCO3 ARTERIAL (BEAKER) (test svgn=688) 21 mmol/L 21-29 BASE EXCESS ARTERIAL (BEAKER) (test wdhz=803) -4.2 mmol/L -2.0-3.0 PATIENT TEMPERATURE (BEAKER) (test fvod=7896) 35.4 C FIO2 (BEAKER) (test liwe=2472) 75.0 % SODIUM NA-STAT [id number] 09:31:00 Test Item Value Reference Range Comments SODIUM (BEAKER) (test mjhz=774) 124 meq/L 135-148 GLUCOSE-STAT [id number] 09:31:00 Test Item Value Reference Range Comments GLUCOSE RANDOM (BEAKER) (test iwja=214) 162 mg/dL 70-110 HGB/HCT (H&H) - STAT [id number] 09:31:00 Test Item Value Reference Range Comments HEMOGLOBIN (BEAKER) (test vsop=744) 8.8 g/dL 12.0-15.0 HEMATOCRIT (BEAKER) (test focf=462) 26.0 % 36.0-45.0 POTASSIUM-STAT [id number] 09:31:00 Test Item Value Reference Range Comments POTASSIUM (BEAKER) (test fmrw=141) 6.2 meq/L 3.6-5.5 BLOOD GAS, [id number] 09:09:00 Test Item Value Reference Range Comments PH ARTERIAL (BEAKER) (test vcwp=401) 7.46 7.35-7.45 PCO2 ARTERIAL (BEAKER) (test rgdb=113) 32 mmHg 35-45 PO2 ARTERIAL (BEAKER) (test vcyc=404) 355 mmHg 80-90 O2 SATURATION ARTERIAL (BEAKER) (test qfue=216) 99.8 % 96.0-97.0 HCO3 ARTERIAL (BEAKER) (test fblu=153) 24 mmol/L 21-29 BASE EXCESS ARTERIAL (BEAKER) (test xful=760) -1.6 mmol/L -2.0-3.0 PATIENT TEMPERATURE (BEAKER) (test hsvi=5356) 30.3 C FIO2 (BEAKER) (test agot=5865) 70.0 % GLUCOSE-STAT [id number] 09:09:00 Test Item Value Reference Range Comments GLUCOSE RANDOM (BEAKER) (test ffpm=401) 150 mg/dL 70-110 POTASSIUM-STAT [id number] 09:08:00 Test Item Value Reference Range Comments POTASSIUM (BEAKER) (test niud=251) 5.5 meq/L 3.6-5.5 HGB/HCT (H&H) - STAT [id number] 09:08:00 Test Item Value Reference Range Comments HEMOGLOBIN (BEAKER) (test pvpq=319) 7.6 g/dL 12.0-15.0 HEMATOCRIT (BEAKER) (test jqbj=413) 22.0 % 36.0-45.0 SODIUM NA-STAT [id number] 09:08:00 Test Item Value Reference Range Comments SODIUM (BEAKER) (test ytjl=228) 124 meq/L 135-148 POTASSIUM-STAT [id number] 08:00:00 Test Item Value Reference Range Comments POTASSIUM (BEAKER) (test fxvh=720) 3.8 meq/L 3.6-5.5 CALCIUM, [id number] 08:00:00 Test Item Value Reference Range Comments CALCIUM IONIZED (BEAKER) (test puko=962) 1.15 mmol/L 1.12-1.27 PH, BLOOD (BEAKER) (test igap=2833) 7.38 BLOOD GAS, [id number] 08:00:00 Test Item Value Reference Range Comments PH ARTERIAL (BEAKER) (test bxai=315) 7.38 7.35-7.45 PCO2 ARTERIAL (BEAKER) (test stmg=460) 34 mmHg 35-45 PO2 ARTERIAL (BEAKER) (test dylx=870) 426 mmHg 80-90 O2 SATURATION ARTERIAL (BEAKER) (test ohoc=139) 99.8 % 96.0-97.0 HCO3 ARTERIAL (BEAKER) (test lpit=984) 20 mmol/L 21-29 BASE EXCESS ARTERIAL (BEAKER) (test gswi=797) -4.9 mmol/L -2.0-3.0 PATIENT TEMPERATURE (BEAKER) (test unit=6666) 37.2 C FIO2 (BEAKER) (test ursf=8667) 100.0 % SODIUM NA-STAT [id number] 08:00:00 Test Item Value Reference Range Comments SODIUM (BEAKER) (test qemy=829) 130 meq/L 135-148 GLUCOSE-STAT [id number] 08:00:00 Test Item Value Reference Range Comments GLUCOSE RANDOM (BEAKER) (test okvl=779) 134 mg/dL 70-110 HGB/HCT (H&H) - STAT [id number] 08:00:00 Test Item Value Reference Range Comments HEMOGLOBIN (BEAKER) (test tljt=942) 10.4 g/dL 12.0-15.0 HEMATOCRIT (BEAKER) (test oqso=226) 31.0 % 36.0-45.0 RAD, CHEST, 1 VIEW, NON [id number] 07:24:00Reason for exam:->pre opShould this be performed [...] 07:24:49 ReadingLocation: [facility] [id number] 04:33:00 Test Item Value Reference Range Comments PROTIME (BEAKER) (test zdmn=354) 14.0 seconds 11.7-14.7 INR (BEAKER) (test vyxg=846) 1.1 <=5.9 PARTIAL THROMBOPLASTIN TIME (BEAKER) (test 40.0 seconds 22.5-36.0 slkq=130) RECOMMENDED COUMADIN/WARFARIN INR THERAPY RANGESSTANDARD DOSE: 2.0 - 3.0 Includes: PROPHYLAXIS forvenous thrombosis, systemic embolization; TREATMENT for venous thrombosis and/or pulmonary embolus.HIGH RISK: Target INR is 2.5-3.5 for patients with mechanical heart valves.PROTHROMBIN [id number] 04:32: 00 Test Item Value Reference Range Comments PROTIME (BEAKER) (test sefr=087) 14.0 seconds 11.7-14.7 INR (BEAKER) (test pdzs=207) 1.1 <=5.9 RECOMMENDED COUMADIN/WARFARIN INR THERAPY RANGESSTANDARD DOSE: 2.0 - 3.0 Includes: PROPHYLAXIS forvenous thrombosis, systemic embolization; TREATMENT for venous thrombosis and/or pulmonary embolus.HIGH RISK: Target INR is 2.5-3.5 for patients with mechanical heart valves.CBC (HEMOGRAM ONLY)[id number] 04:18:00 Test Item Value Reference Range Comments WHITE BLOOD CELL COUNT (BEAKER) (test ibfb=937) 9.9 K/ L 3.5-10.5 RED BLOOD CELL COUNT (BEAKER) (test qntl=442) 2.92 M/ L 3.93-5.22 HEMOGLOBIN (BEAKER) (test anpk=377) 9.9 GM/DL 11.2-15.7 HEMATOCRIT (BEAKER) (test yaip=737) 28.7 % 34.1-44.9 MEAN CORPUSCULAR VOLUME (BEAKER) (test mqom=614) 98.3 fL 79.4-94.8 MEAN CORPUSCULAR HEMOGLOBIN (BEAKER) (test 33.9 pg 25.6-32.2 smyt=331) MEAN CORPUSCULAR HEMOGLOBIN CONC (BEAKER) (test 34.5 GM/DL 32.2-35.5 oeuc=419) RED CELL DISTRIBUTION WIDTH (BEAKER) (test 12.6 % 11.7-14.4 isxa=959) PLATELET COUNT (BEAKER) (test nbhh=483) 383 K/CU MM 150-450 MEAN PLATELET VOLUME (BEAKER) (test ugcr=363) 9.9 fL 9.4-12.3 NUCLEATED RED BLOOD CELLS (BEAKER) (test 0 /100 WBC 0-0 yvif=861) HEMOGLOBIN [id number] 20:12:00 Test Item Value Reference Range Comments HEMOGLOBIN A1C (BEAKER) (test pegk=676) 6.6 % 4.3-6.1 PLATELET AGGREGATION: FUNCTION [id number] 18:20:00 Test Item Value Reference Range Comments WEAK ADP RESULT(BEAKER) (test 43 % 60-91 bqbl=9282) PLATELET FUNCTION SCREEN 40-49% indicates moderate INTERP (BEAKER) (test platelet dysfunction ztbw=6592) [id number] Yuri Quijano M.D. (electonic (BEAKER) (test qjtx=7017) signature) PLATELET COUNT AGG (BEAKER) 417 K/CU MM 150-450 (test hptp=8903) for patients on clopidogrel in past two weeksLIPID [id number] 13:14:00 Test Item Value Reference Range Comments TRIGLYCERIDES (BEAKER) (test 182 mg/dL Specimen slightly hemolyzed nmrq=062) CHOLESTEROL (BEAKER) (test 133 mg/dL Specimen slightly hemolyzed dqxd=179) HDL CHOLESTEROL (BEAKER) (test 31 mg/dL fnul=791) LDL CHOLESTEROL CALCULATED 66 mg/dL (BEAKER) (test clpe=136) Triglyceride Reference Range: Low Risk <150 Borderline 150- 199 High Risk 200-499 Very High Risk >=500Cholesterol Reference Range: Low Risk <200 Borderline 200-239 High Risk > 240HDL Cholesterol Reference Range: Low Risk >=60 High Risk <40LDL Cholesterol Reference Range: Optimal <100 Near Optimal 100-129 Borderline 130-159 High 160-189 Very High >=190BASIC METABOLIC [id number] 09:12:00 Test Item Value Reference Range Comments SODIUM (BEAKER) (test 128 meq/L 136-145 lder=410) POTASSIUM (BEAKER) (test 4.2 meq/L 3.5-5.1 Specimen slightly zlfc=945) hemolyzed CHLORIDE (BEAKER) (test 100 meq/L 98-107 ajji=930) CO2 (BEAKER) (test 18 meq/L 22-29 devh=355) BLOOD UREA NITROGEN 11 mg/dL 7-21 (BEAKER) (test abav=198) CREATININE (BEAKER) (test 0.86 mg/dL 0.57-1.25 Specimen slightly mrkb=200) hemolyzed GLUCOSE RANDOM (BEAKER) 108 mg/dL 70-105 (test crid=960) CALCIUM (BEAKER) (test 9.5 mg/dL 8.4-10.2 mvsi=581) EGFR (BEAKER) (test 68 mL/min/1.73 sq m ESTIMATED GFR IS NOT gztr=3373) ACCURATE CREATININE CLEARANCE IN PREDICTING GLOMERULAR FILTRATION RATE. ESTIMATED GFR IS NOT APPLICABLE FOR DIALYSIS PATIENTS. HEPATIC FUNCTION [id number] 09:12:00 Test Item Value Reference Range Comments TOTAL PROTEIN (BEAKER) (test 7.0 gm/dL 6.0-8.3 Specimen slightly hemolyzed jwlo=576) ALBUMIN (BEAKER) (test 3.5 g/dL 3.5-5.0 Specimen slightly hemolyzed skzj=0600) BILIRUBIN TOTAL (BEAKER) (test 0.4 mg/dL 0.2-1.2 Specimen slightly hemolyzed dtqu=591) BILIRUBIN DIRECT (BEAKER) (test 0.2 mg/dL 0.1-0.5 Specimen slightly hemolyzed aqqg=778) ALKALINE PHOSPHATASE (BEAKER) 82 U/L 40-150 (test rsex=614) AST (SGOT) (BEAKER) (test 32 U/L 5-34 Specimen slightly hemolyzed qvps=160) ALT (SGPT) (BEAKER) (test 37 U/L 6-55 Specimen slightly hemolyzed uqgi=391) PROTHROMBIN [id number] 05:58:00 Test Item Value Reference Range Comments PROTIME (BEAKER) (test grad=973) 14.2 seconds 11.7-14.7 INR (BEAKER) (test hgmv=598) 1.1 <=5.9 RECOMMENDED COUMADIN/WARFARIN INR THERAPY RANGESSTANDARD DOSE: 2.0 - 3.0 Includes: PROPHYLAXIS forvenous thrombosis, systemic embolization; TREATMENT for venous thrombosis and/or pulmonary embolus.HIGH RISK: Target INR is 2.5-3.5 for patients with mechanical heart valves.CBC W/PLT COUNT & AUTO [id number] 05:49:00 Test Item Value Reference Range Comments WHITE BLOOD CELL COUNT (BEAKER) (test dnmy=515) 10.6 K/ L 3.5-10.5 RED BLOOD CELL COUNT (BEAKER) (test ocwh=810) 2.84 M/ L 3.93-5.22 HEMOGLOBIN (BEAKER) (test xmpp=102) 9.6 GM/DL 11.2-15.7 HEMATOCRIT (BEAKER) (test ntqu=424) 28.0 % 34.1-44.9 MEAN CORPUSCULAR VOLUME (BEAKER) (test wqry=052) 98.6 fL 79.4-94.8 MEAN CORPUSCULAR HEMOGLOBIN (BEAKER) (test 33.8 pg 25.6-32.2 xixi=680) MEAN CORPUSCULAR HEMOGLOBIN CONC (BEAKER) (test 34.3 GM/DL 32.2-35.5 gotb=158) RED CELL DISTRIBUTION WIDTH (BEAKER) (test 12.7 % 11.7-14.4 main=875) PLATELET COUNT (BEAKER) (test hzcz=893) 393 K/CU MM 150-450 MEAN PLATELET VOLUME (BEAKER) (test qkzk=028) 9.9 fL 9.4-12.3 NUCLEATED RED BLOOD CELLS (BEAKER) (test 0 /100 WBC 0-0 ibpq=771) NEUTROPHILS RELATIVE PERCENT (BEAKER) (test 75 % zalz=648) LYMPHOCYTES RELATIVE PERCENT (BEAKER) (test 13 % mpcx=836) MONOCYTES RELATIVE PERCENT (BEAKER) (test 9 % bssg=754) EOSINOPHILS RELATIVE PERCENT (BEAKER) (test 3 % nwnw=681) BASOPHILS RELATIVE PERCENT (BEAKER) (test 0 % amuc=347) NEUTROPHILS ABSOLUTE COUNT (BEAKER) (test 7.94 K/ L 1.56-6.13 hoip=442) LYMPHOCYTES ABSOLUTE COUNT (BEAKER) (test 1.32 K/ L 1.18-3.74 eyuy=858) MONOCYTES ABSOLUTE COUNT (BEAKER) (test 0.98 K/ L 0.24-0.36 cnqj=315) EOSINOPHILS ABSOLUTE COUNT (BEAKER) (test 0.28 K/ L 0.04-0.36 tnba=750) BASOPHILS ABSOLUTE COUNT (BEAKER) (test 0.01 K/ L 0.01-0.08 hiup=832) IMMATURE GRANULOCYTES-RELATIVE PERCENT (BEAKER) 1 % 0-1 (test mnxn=0454)
[2019-07-29] MEDS ORDERED: ALBUTEROL 2.5 MG/3 ML NEB SOL ONE (09:46)
[2019-07-29] MEDS ORDERED: IPRATROPIUM BROM 0.5MG/2.5ML ONE (09:46)
[2019-07-29 10:11] LABS: Absolute Lymphocytes (CBC) 0.6 K/uL (0.7-4.9); Basophils % 0.5 % (0-1.3); Hematocrit 35.3 % (36.0-45.0); Lymphocytes % 25.2 % (15.3-44.8); MPV 8.9 fL (7.6-11.3); RBC Red Blood Cell Count 3.61 M/uL (3.86-4.86)
[2019-07-29 10:23] LABS: ALT/SGPT 26 U/L (12-78); AST/SGOT 48 U/L (15-37); Albumin 3.4 g/dL (3.4-5.0); Alkaline Phosphatase 74 U/L (45-117); BUN Blood Urea Nitrogen 21 mg/dL (7-18); Bicarbonate 23 mmol/L (21-32); Bilirubin Total 0.2 mg/dL (0.2-1.0); Glucose Level 131 mg/dL (74-106); Lipase 235 U/L (73-393); Magnesium 1.7 mg/dL (1.8-2.4); NT PRO-BNP 130 pg/mL (<125); Potassium 3.9 mmol/L (3.5-5.1); Protein, Total 6.7 g/dL (6.4-8.2); Sodium Level 130 mmol/L (136-145); Troponin (Emerg Dept Use Only) < 0.02 ng/mL (0.0-0.045)
--- NOTE | 2019-07-29 11:46 | ER ---
Nurse's Notes [facility] Name: Mallory Nash Age: 59 yrs Sex: Female : 1960 Arrival Date: 07/29/2019 Time: 09:31 Bed 4 Private MD: Renetta Morillo H Diagnosis: Acute viral syndrome;Cough Presentation: 07/29 09:38 Presenting complaint: Patient states: SOB, COUGH AND MALAISE x1 WK. Transition of care: bp patient was not received from another setting of care. Onset of symptoms is unknown. Risk Assessment: Do you want to hurt yourself or someone else? Patient reports no desire to harm self or others. Initial Sepsis Screen: Does the patient meet any 2 criteria? RR > 20 per min. No. Patient's initial sepsis screen is negative. Does the patient have a suspected source of infection? Yes: Productive cough/pneumonia. Care prior to arrival: None. 09:38 Method Of Arrival: Ambulatory bp 09:38 Acuity: MAICO 3 bp Triage Assessment: 09:42 General: Appears distressed, comfortable, slender, Behavior is cooperative, appropriate bp for age, anxious. Pain: Complains of pain in GENERALIZED. EENT: No deficits noted. Neuro: No deficits noted. Cardiovascular: Rhythm is sinus rhythm. Respiratory: Reports shortness of breath cough that is Onset: The symptoms/episode began/occurred 1 WEEK, the patient has mild shortness of breath. GI: Reports diarrhea. : No signs and/or symptoms were reported regarding the genitourinary system. Derm: No deficits noted. Musculoskeletal: No deficits noted. Historical: - Allergies: 09:41 No Known Allergies; bp - Home Meds: 09:41 aspirin 81 mg Oral chew 1 tab once daily [Active]; metoprolol tartrate 25 mg Oral tab bp once daily [Active]; gabapentin 800 mg Oral tab 1 tab 4 times per day [Active]; Spiriva with HandiHaler inhalation inhalation [Active]; Advair Diskus Inhl [Active]; - PMHx: 09:41 chronic back pain; Depression; Hypertension; COPD; bp - Immunization history:: Adult Immunizations up to date. - Social history:: Smoking status: Patient/guardian denies using tobacco, the patient reports quitting approximately .5 years ago. - Ebola Screening: : No symptoms or risks identified at this time. Screenin:40 Abuse screen: Denies threats or abuse. Denies injuries from another. Nutritional bp screening: No deficits noted. Tuberculosis screening: No symptoms or risk factors identified. Fall Risk None identified. Assessment: 09:40 General: SEE TRIAGE NOTE. Cardiovascular: Rhythm is sinus rhythm. Respiratory: Airway bp is patent Respiratory effort is even, unlabored, Breath sounds are coarse bilaterally. 11:00 Reassessment: ALL CURRENT ORDERS COMPLETED, DISPO PENDING. bp 11:54 Reassessment: PT D/C HOME AMBULATORY, DX WITH VIRAL URI. bp Vital Signs: 09:41 BP 149 / 72; Pulse 75; Resp 24; Temp 98.3; Pulse Ox 98% ; Weight 49.9 kg; Height 5 ft. bp 5 in. (165.10 cm); 10:11 BP 107 / 63; Pulse 87; Resp 15 S; Pulse Ox 100% on Nebulizer Mask; ca1 11:05 BP 99 / 53; Pulse 83; Resp 22; Temp 98.1(O); Pulse Ox 99% on R/A; mh5 11:53 BP 99 / 63; Pulse 88; Resp 22; Temp 98.5; Pulse Ox 99% ; bp 09:41 Body Mass Index 18.30 (49.90 kg, 165.10 cm) bp ED Course: 09:31 Patient arrived in ED. mr 09:32 Renetta Morillo, is Private Physician. mr 09:33 Tucker Franco MD is Attending Physician. ps1 09:38 Norbert Pickett, RN is Primary Nurse. bp 09:39 Triage completed. bp 09:40 Patient has correct armband on for positive identification. Bed in low position. Call bp light in reach. Side rails up X2. 09:41 Arm band placed on. bp 09:50 No provider procedures requiring assistance completed. Initial lab(s) drawn, by me, ca1 sent to lab. Inserted saline lock: 20 gauge in right antecubital area, using aseptic technique. Blood collected. 10:05 Warm blanket given. electronic device monitor on. Pulse ox on. NIBP on. mh5 10:05 EKG done, by ED staff, reviewed by Tucker Franco MD. mh5 11:20 CXR XRAY In Process Unspecified. EDMS 11:44 Renetta Morillo DO is Referral Physician. ps1 11:54 IV discontinued, intact, bleeding controlled, No redness/swelling at site. Pressure bp dressing applied. Administered Medications: 09:45 Drug: DuoNeb (3:1) (2.5 mg - 0.5 mg) 3 ml Route: Nebulizer; ca1 11:55 Follow up: Response: Marked relief of symptoms bp Outcome: :45 Discharge ordered by MD. ps1 11:54 Discharged to home ambulatory. bp 11:54 Condition: stable 11:54 Discharge instructions given to patient, Instructed on discharge instructions, follow up and referral plans. Demonstrated understanding of instructions, follow-up care. 11:59 Patient left the ED. bp Signatures: Dispatcher [employer] EDMS Brayan Kasia Ruelas Trini 5 Norbert Pickett, NAIN RN bp Tucker Franco MD MD ps1 AcHayde cerda RN RN ca1 Corrections: (The following items were deleted from the chart) 11:06 11:05 BP 99 / 53; Pulse 83bpm; Resp 22bpm; Pulse Ox 99% RA; 5 5
--- NOTE | 2019-07-29 11:47 | EDPHYS ---
Physician Documentation [facility] Name: Mallory Nash Age: 59 yrs Sex: Female : 1960 Arrival Date: 07/29/2019 Time: 09:31 Bed 4 Private MD: Reentta Morillo H ED Physician Tucker Franco HPI: 07/29 09:40 This 59 yrs old Female presents to ER via Ambulatory with complaints of ps1 Shortness Of Breath. 09:40 Patient has had influenza like illness for past week. Has been laying in bed. No ps1 appetite. Hx of COPD. Thought she was going to get better. C/o cough, congestion, body aches and fatigue. Had PNA/sepsis earlier in year. Afebrile. . Historical: - Allergies: 09:41 No Known Allergies; bp - Home Meds: 09:41 aspirin 81 mg Oral chew 1 tab once daily [Active]; metoprolol tartrate 25 mg Oral tab bp once daily [Active]; gabapentin 800 mg Oral tab 1 tab 4 times per day [Active]; Spiriva with HandiHaler inhalation inhalation [Active]; Advair Diskus Inhl [Active]; - PMHx: 09:41 chronic back pain; Depression; Hypertension; COPD; bp - Immunization history:: Adult Immunizations up to date. - Social history:: Smoking status: Patient/guardian denies using tobacco, the patient reports quitting approximately .5 years ago. - Ebola Screening: : No symptoms or risks identified at this time. ROS: 09:40 Eyes: Negative for injury, pain, redness, and discharge, Cardiovascular: Negative for ps1 chest pain, palpitations, and edema, MS/Extremity: Negative for injury and deformity, Skin: Negative for injury, rash, and discoloration, Neuro: Negative for headache, weakness, numbness, tingling, and seizure. 09:40 Constitutional: Positive for body aches, fatigue, malaise, poor PO intake. 09:40 Respiratory: Positive for cough, shortness of breath. Exam: 09:40 Constitutional: This is a well developed, well nourished patient who is awake, alert, ps1 and in no acute distress. Head/Face: Normocephalic, atraumatic. Eyes: Pupils equal round and reactive to light, extra-ocular motions intact. Lids and lashes normal. Conjunctiva and sclera are non-icteric and not injected. Chest/axilla: Normal chest wall appearance and motion. Nontender with no deformity. No lesions are appreciated. Cardiovascular: Regular rate and rhythm. No gallops, murmurs, or rubs. Normal PMI, no JVD. No pulse deficits. Skin: Warm, dry with normal turgor. Normal color with no rashes, no lesions, and no evidence of cellulitis. MS/ Extremity: Pulses equal, no cyanosis. Neurovascular intact. Full, normal range of motion. Neuro: Awake and alert, GCS 15, oriented to person, place, time, and situation. Cranial nerves II-XII grossly intact. Sensory grossly intact. 09:40 Respiratory: the patient does not display signs of respiratory distress, Respirations: normal, Breath sounds: bronchial sounds. Vital Signs: 09:41 BP 149 / 72; Pulse 75; Resp 24; Temp 98.3; Pulse Ox 98% ; Weight 49.9 kg; Height 5 ft. bp 5 in. (165.10 cm); 10:11 BP 107 / 63; Pulse 87; Resp 15 S; Pulse Ox 100% on Nebulizer Mask; ca1 11:05 BP 99 / 53; Pulse 83; Resp 22; Temp 98.1(O); Pulse Ox 99% on R/A; mh5 11:53 BP 99 / 63; Pulse 88; Resp 22; Temp 98.5; Pulse Ox 99% ; bp 09:41 Body Mass Index 18.30 (49.90 kg, 165.10 cm) bp MDM: 09:35 Patient medically screened. ps1 11:46 Differential diagnosis: Anxiety Reaction Myocardial Infarction COPD, Cough, Viral ps1 Syndrome, and others. Data reviewed: vital signs, nurses notes, lab test result(s), EKG, radiologic studies, and as a result, I will discharge patient. Counseling: I had a detailed discussion with the patient and/or guardian regarding: the historical points, exam findings, and any diagnostic results supporting the discharge/admit diagnosis, lab results, radiology results, the need for outpatient follow up, to return to the emergency department if symptoms worsen or persist or if there are any questions or concerns that arise at home. 07/29 09:39 Order name: CBC with Diff ps1 07/29 09:39 Order name: Lipase; Complete Time: 10:29 ps1 07/29 09:39 Order name: Magnesium; Complete Time: 10:29 ps1 07/29 09:39 Order name: NT PRO-BNP; Complete Time: 10:29 ps1 07/29 09:39 Order name: Troponin (emerg Dept Use Only); Complete Time: 10:29 ps1 07/29 09:39 Order name: CMP; Complete Time: 10:29 ps1 07/29 09:39 Order name: EKG; Complete Time: 09:40 ps1 07/29 09:39 Order name: Cardiac monitoring; Complete Time: 09:45 ps1 07/29 09:39 Order name: EKG - Nurse/Tech; Complete Time: 09:45 ps1 07/29 09:39 Order name: IV Saline Lock; Complete Time: 09:56 ps1 07/29 09:39 Order name: Labs collected and sent; Complete Time: 09:56 ps1 07/29 09:40 Order name: Flu; Complete Time: 10:09 ps1 07/29 10:30 Order name: CXR XRAY ps1 07/29 09:39 Order name: O2 Per Protocol; Complete Time: 09:44 ps1 07/29 09:39 Order name: O2 Sat Monitoring; Complete Time: 09:44 ps1 EC:47 Rate is 88 beats/min. Rhythm is regular. Right axis deviation noted. HI interval is ps1 normal. QRS interval is normal. QT interval is normal. Q waves are Old in leads V2, V3. T waves are Flattened in leads I, aVL. No ST changes noted. Clinical impression: NSR w/ Non-specific ST/T Changes. Interpreted by me. Administered Medications: 09:45 Drug: DuoNeb (3:1) (2.5 mg - 0.5 mg) 3 ml Route: Nebulizer; ca1 11:55 Follow up: Response: Marked relief of symptoms bp Disposition: 07/29/19 11:45 Discharged to Home. Impression: Acute viral syndrome, Cough. - Condition is Stable. - Discharge Instructions: Viral Respiratory Infection, Chronic Obstructive Pulmonary Disease Exacerbation, [id number]. - Medication Reconciliation Form, Thank You Letter, Antibiotic Education, Prescription Opioid Use form. - Follow up: Renetta Morillo DO; When: 48 Hours; Reason: Recheck today's complaints, Continuance of care, Re-evaluation by your physician. Follow up: Emergency Department; When: As needed; Reason: Fever > 102 F, Trouble breathing, Worsening of condition. - Problem is new. - Symptoms have improved. Signatures: Dispatcher [employer] Norbert Lima RN RN bp Tucker Franco MD MD ps1 Hayde Zuniga RN RN ca1 Corrections: (The following items were deleted from the chart) 11:59 11:45 07/29/2019 11:45 Discharged to Home. Impression: Acute viral syndrome; Cough. bp Condition is Stable. Forms are Medication Reconciliation Form, Thank You Letter, Antibiotic Education, Prescription Opioid Use. Follow up: Renetta Morillo; When: 48 Hours; Reason: Recheck today's complaints, Continuance of care, Re-evaluation by your physician. Follow up: Emergency Department; When: As needed; Reason: Fever > 102 F, Trouble breathing, Worsening of condition. Problem is new. Symptoms have improved. ps1
[2019-07-29 12:17] VITALS: O2SAT 99
[2019-07-29 12:18] VITALS: BP 99/63; TEMP 98.5
--- NOTE | 2019-07-29 12:22 | RAD REPORT ---
EXAM DESCRIPTION: RAD - Chest Single View - 07/29/2019 11:19 am CLINICAL HISTORY: Cough;COPD Chest pain. COMPARISON: Chest Pa And Lat (2 Views) dated 10/09/2018; Chest Pa And Lat (2 Views) dated 10/08/2018; Chest Single View dated 10/06/2018; Chest Single View dated 10/06/2018 FINDINGS: Portable technique limits examination quality. Mild interstitial pulmonary edema is seen versus interstitial pneumonia. 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 No displaced fractures.
[2019-07-29 12:59] LABS: Blood Morphology Comment NOT SEEN (NOT SEEN); Platelet Estimate DECR
--- NOTE | 2019-07-29 23:06 | EKG ---
Test Date: 2019-07-29 Test Time: 09:47:21 [employer]: GILDARDO MEASUREMENT RESULTS: Intervals: Rate: 88 [place]: 148 QRSD: 76 QT: 342 QTc: 413 [place]: P: 61 [place]: 148 QRS: 91 T: 83 INTERPRETIVE STATEMENTS: Normal sinus rhythm Rightward axis Anteroseptal infarct, age undetermined Abnormal ECG Compared to ECG 10/06/2018 16:30:49 Right-axis deviation now present Sinus tachycardia no longer present ST (T wave) deviation no longer present Possible ischemia no longer present Myocardial infarct finding still present Electronically Signed On 07-29-19 23:05:44 ASSISTANCE COORDINATOR by Steve Munoz
== END 2019-07-29 11:59 | disposition home or self-care (01) ==
LOC: ER 09:30
DX: B34.9 Viral infection, unspecified (principal); R05 Cough; I10 Essential (primary) hypertension; J44.9 Chronic obstructive pulmonary disease, unspecified
CPT/HCPCS: 36415; 71045; 80053; 83690; 83735; 83880; 84484; 85025; 87804; 93005; 94640; 99285

== ENCOUNTER 2021-03-11 11:42 | Emergency (ER) | payer BC, OTHER ==
--- OUTSIDE RECORDS SUMMARY | 2021-03-11 11:46 | XMS REPORT | Continuity of Care Document ---
:1960 Author Organization [facility] t Address [address] [place] [address] Care Team Providers Name Role Phone Cierra Primary Care Physician FRANCA GRIMES Attending Clinician Unavailable FRANCA GRIMES Admitting Clinician Unavailable Problems Condition Condition Condition Status Onset Resolution Last Treating Co mments Source Name Details Category Date Date Treatment Clinician Date Acute Acute Disease Active 2016-[address] [facility] pulmonary pulmonary 09-26 [facility] - edema edema 00:00: Medical 00 [place] Atelectasi Atelectasi Disease Active 2016-[address] [facility] of both s of both 09-26 [facility] - lungs lungs 00:00: Medical 00 [place] S/P CABG x S/P CABG x Disease Active 2016-[address] 3 3 09-26 [facility] 00 [place] Acute Acute Disease Active 2016-[address] [facility] pulmonary pulmonary 09-26 [facility] - insufficie insufficie 00:00: Az dical ncy ncy 00 Center following following thoracic thoracic surgery surgery Postoperat Postoperat Disease Active 2016-[address] gume anemia gume anemia 09-26 Tammy kes - due to due to 00:00: Medical acute acute 00 Center blood loss blood loss ACBx3 ( ACBx3 ( Disease Active 2016-[address] Cornelio Grimes 09-25 [facility] - 07.27.17) 07.27.17) 00:00: Medi genoveva 00 Center Allergies, Adverse Reactions, Alerts Allergy Allergy Status Severity Reaction(s) Onset Inactive Treating Comm ents Source Name Type Date Date Clinician Chlorhex Drug Active Itching 2016-[address] [facility] [address] idine Allergy 1-29 [facility] - 00:00: Medical 00 [place] Medical Drug Active Itching 2016-[address] [facility] [address] Supply, Allergy 09-26 allergic [facility] - [place] 00:00: reaction Medica l neous 00 [place] Social History Social Habit Start Date Stop Date Quantity Comments Source Sex Assigned At [facility] Medications Ordered Filled Start Stop Current Ordering Indication Dosage Frequency Signature Comments Components Source Medication Medication Date Date Medication? Clinician (SIG) Name Name albuterol 2016-08 Yes 1{puff} Inhale [address] HFA 2-04 puff by Enmanuel - (VENTOLIN 14:52: mouth via Med ical HFA) 90 06 inhaler Center mcg/actuati every 6 on inhaler (six) hours as needed for Wheezing. thiamine 2016-08 Yes 100mg QD Take [address] [facility] (VITAMIN 2-04 mg by Enmanuel - B-1) 100 MG 14:52: mouth Medic al tablet 06 daily. [place] folic acid 2016-08 Yes 1mg QD Take [address] [facility] (FOLVITE) 1 2-04 by mouth [place] [facility] - MG tablet 14:52: daily. Medica l 06 [place] acetaminoph 2016-08 Yes 1{tbl} Take [address] en-codeine 2-04 tablet by madelin s - (TYLENOL 00:00: mouth Medical #3) 300-30 00 every 6 Center mg per (six) tablet hours as needed for Pain. Max Daily Amount: 4 tablets gabapentin 2016-08 Yes 400mg [id number] Take 0.[address] (NEURONTIN) 2-04 [id number] tablets [facility] - 800 MG 00:00: 3D (400 mg Medical tablet 00 total) by Center mouth 3 (three) times daily. metoprolol 2016-08 Yes 25mg Q.5D Take 1 [facility] (LOPRESSOR) 2-04 tablet (25 Tammy kes - 25 MG 00:00: mg total) Medical tablet 00 by mouth 2 Center (two) times daily. Procedures This patient has no known procedures. Results Test Description Test Time Test Comments Results Result [facility] e Comments RAD, CHEST, PA OR 2017-08-01 Reason for FINAL REPORT PATIENT AP, 1 VIEW 09:05:00 exam:->post-op ID: [id number] Chest one view. Clinical history: post-op Comparison: July 28, 2017 Discussion: A frontal chest is provided. Cardiomediastinal contours are unchanged. Right IJ line has been removed. There is patchy retrocardiac opacity is slightly improved since the previous exam. A small left effusion is present. No pneumothorax. Signed: Hemant Paige Verified Date/Time: 08/01/2017 09:05:03 Reading Location: [facility] Radiology Reading Room ESIUM 2017-08-01 06:58:00 Test Item Value Reference Range Interpretation Comme nts MAGNESIUM (BEAKER) (test code = 627) 1.8 mg/dL 1.6-2.6 CBC W/PLT COUNT & AUTO [id number] 05:44:00 Test Item Value Reference Range Interpretation Comments WHITE BLOOD CELL COUNT (BEAKER) 6.1 K/ L 3.5-10.5 (test code = 775) RED BLOOD CELL COUNT (BEAKER) 2.67 M/ L 3.93-5.22 L (test code = 761) HEMOGLOBIN (BEAKER) (test code = 8.5 GM/DL 11.2-15.7 L 410) HEMATOCRIT (BEAKER) (test code = 25.3 % 34.1-44.9 L 411) MEAN CORPUSCULAR VOLUME (BEAKER) 94.8 fL 79.4-94.8 (test code = 753) MEAN CORPUSCULAR HEMOGLOBIN 31.8 pg 25.6-32.2 (BEAKER) (test code = 751) MEAN CORPUSCULAR HEMOGLOBIN CONC 33.6 GM/DL 32.2-35.5 (BEAKER) (test code = 752) RED CELL DISTRIBUTION WIDTH 13.6 % 11.7-14.4 (BEAKER) (test code = 412) PLATELET COUNT (BEAKER) (test 329 K/CU MM 150-450 code = 756) MEAN PLATELET VOLUME (BEAKER) 10.2 fL 9.4-12.3 (test code = 754) NUCLEATED RED BLOOD CELLS 0 /100 WBC 0-0 (BEAKER) (test code = 413) NEUTROPHILS RELATIVE PERCENT 72 % (BEAKER) (test code = 429) LYMPHOCYTES RELATIVE PERCENT 18 % (BEAKER) (test code = 430) MONOCYTES RELATIVE PERCENT 7 % (BEAKER) (test code = 431) EOSINOPHILS RELATIVE PERCENT 3 % (BEAKER) (test code = 432) BASOPHILS RELATIVE PERCENT 0 % (BEAKER) (test code = 437) NEUTROPHILS ABSOLUTE COUNT 4.39 K/ L 1.56-6.13 (BEAKER) (test code = 670) LYMPHOCYTES ABSOLUTE COUNT 1.11 K/ L 1.18-3.74 L (BEAKER) (test code = 414) MONOCYTES ABSOLUTE COUNT (BEAKER) 0.42 K/ L 0.24-0.36 H (test code = 415) EOSINOPHILS ABSOLUTE COUNT 0.16 K/ L 0.04-0.36 (BEAKER) (test code = 416) BASOPHILS ABSOLUTE COUNT (BEAKER) 0.02 K/ L 0.01-0.08 (test code = 417) IMMATURE GRANULOCYTES-RELATIVE 0 % 0-1 PERCENT (BEAKER) (test code = 2801) CBC W/PLT COUNT & AUTO [id number] 07:13:00 Test Item Value Reference Range Interpretation Comments WHITE BLOOD CELL COUNT (BEAKER) 7.0 K/ L 3.5-10.5 (test code = 775) RED BLOOD CELL COUNT (BEAKER) 2.61 M/ L 3.93-5.22 L (test code = 761) HEMOGLOBIN (BEAKER) (test code = 8.4 GM/DL 11.2-15.7 L 410) HEMATOCRIT (BEAKER) (test code = 24.6 % 34.1-44.9 L 411) MEAN CORPUSCULAR VOLUME (BEAKER) 94.3 fL 79.4-94.8 (test code = 753) MEAN CORPUSCULAR HEMOGLOBIN 32.2 pg 25.6-32.2 (BEAKER) (test code = 751) MEAN CORPUSCULAR HEMOGLOBIN CONC 34.1 GM/DL 32.2-35.5 (BEAKER) (test code = 752) RED CELL DISTRIBUTION WIDTH 13.7 % 11.7-14.4 (BEAKER) (test code = 412) PLATELET COUNT (BEAKER) (test 322 K/CU MM 150-450 code = 756) MEAN PLATELET VOLUME (BEAKER) 10.1 fL 9.4-12.3 (test code = 754) NUCLEATED RED BLOOD CELLS 0 /100 WBC 0-0 (BEAKER) (test code = 413) NEUTROPHILS RELATIVE PERCENT 76 % (BEAKER) (test code = 429) LYMPHOCYTES RELATIVE PERCENT 14 % (BEAKER) (test code = 430) MONOCYTES RELATIVE PERCENT 7 % (BEAKER) (test code = 431) EOSINOPHILS RELATIVE PERCENT 3 % (BEAKER) (test code = 432) BASOPHILS RELATIVE PERCENT 1 % (BEAKER) (test code = 437) NEUTROPHILS ABSOLUTE COUNT 5.26 K/ L 1.56-6.13 (BEAKER) (test code = 670) LYMPHOCYTES ABSOLUTE COUNT 0.98 K/ L 1.18-3.74 L (BEAKER) (test code = 414) MONOCYTES ABSOLUTE COUNT (BEAKER) 0.46 K/ L 0.24-0.36 H (test code = 415) EOSINOPHILS ABSOLUTE COUNT 0.19 K/ L 0.04-0.36 (BEAKER) (test code = 416) BASOPHILS ABSOLUTE COUNT (BEAKER) 0.04 K/ L 0.01-0.08 (test code = 417) IMMATURE GRANULOCYTES-RELATIVE 0 % 0-1 PERCENT (BEAKER) (test code = 2801) [id number] 04:08:00 Test Item Value Reference Range Interpretation Comments MAGNESIUM (BEAKER) (test code = 1.3 mg/dL 1.6-2.6 L 627) BASIC METABOLIC [id number] 04:08:00 Test Item Value Reference Range Interpretation Comments SODIUM (BEAKER) 129 meq/L 136-145 L (test code = 381) POTASSIUM (BEAKER) 3.8 meq/L 3.5-5.1 (test code = 379) CHLORIDE (BEAKER) 97 meq/L 98-107 L (test code = 382) CO2 (BEAKER) (test 24 meq/L 22-29 code = 355) BLOOD UREA NITROGEN 8 mg/dL 7-21 (BEAKER) (test code = 354) CREATININE (BEAKER) 0.73 mg/dL 0.57-1.25 (test code = 358) GLUCOSE RANDOM 138 mg/dL 70-105 H (BEAKER) (test code = 652) CALCIUM (BEAKER) 8.7 mg/dL 8.4-10.2 (test code = 697) EGFR (BEAKER) (test 82 mL/min/1.73 ESTIMA KOLE GFR IS code = 1092) sq m NOT ACCURATE CREATININE CLEARANCE IN PREDICTING GLOMERULAR FILTRATION RATE . ESTIMATED GFR I S NOT APPLICABLE FOR DIALYSIS PATIEN TS. POCT-GLUCOSE [id number] 12:53:00 Test Item Value Reference Range Interpretation Comments POC-GLUCOSE METER 192 mg/dL 70-110 H TESTED AT [facility] 6720 (BEAKER) (test code = KARINA Betts [facility] 1538) [id number] POCT-GLUCOSE [id number] 07:54:00 Test Item Value Reference Range Interpretation Comments POC-GLUCOSE METER 129 mg/dL 70-110 H TESTED AT [facility] 6720 (BEAKER) (test code = [facility] 1538) [id number] BASIC METABOLIC [id number] 05:37:00 Test Item Value Reference Range Interpretation Comments SODIUM (BEAKER) 129 meq/L 136-145 L (test code = 381) POTASSIUM (BEAKER) 3.2 meq/L 3.5-5.1 L (test code = 379) CHLORIDE (BEAKER) 96 meq/L 98-107 L (test code = 382) CO2 (BEAKER) (test 24 meq/L 22-29 code = 355) BLOOD UREA NITROGEN 10 mg/dL 7-21 (BEAKER) (test code = 354) CREATININE (BEAKER) 0.79 mg/dL 0.57-1.25 (test code = 358) GLUCOSE RANDOM 119 mg/dL 70-105 H (BEAKER) (test code = 652) CALCIUM (BEAKER) 8.9 mg/dL 8.4-10.2 (test code = 697) EGFR (BEAKER) (test 75 mL/min/1.73 ESTIMA KOLE GFR IS code = 1092) sq m NOT ACCURATE CREATININE CLEARANCE IN PREDICTING GLOMERULAR FILTRATION RATE . ESTIMATED GFR I S NOT APPLICABLE FOR DIALYSIS PATIEN TS. CBC W/PLT COUNT & AUTO [id number] 05:07:00 Test Item Value Reference Range Interpretation Comments WHITE BLOOD CELL COUNT (BEAKER) 7.6 K/ L 3.5-10.5 (test code = 775) RED BLOOD CELL COUNT (BEAKER) 2.48 M/ L 3.93-5.22 L (test code = 761) HEMOGLOBIN (BEAKER) (test code = 7.8 GM/DL 11.2-15.7 L 410) HEMATOCRIT (BEAKER) (test code = 22.9 % 34.1-44.9 L 411) MEAN CORPUSCULAR VOLUME (BEAKER) 92.3 fL 79.4-94.8 (test code = 753) MEAN CORPUSCULAR HEMOGLOBIN 31.5 pg 25.6-32.2 (BEAKER) (test code = 751) MEAN CORPUSCULAR HEMOGLOBIN CONC 34.1 GM/DL 32.2-35.5 (BEAKER) (test code = 752) RED CELL DISTRIBUTION WIDTH 14.0 % 11.7-14.4 (BEAKER) (test code = 412) PLATELET COUNT (BEAKER) (test 286 K/CU MM 150-450 code = 756) MEAN PLATELET VOLUME (BEAKER) 10.1 fL 9.4-12.3 (test code = 754) NUCLEATED RED BLOOD CELLS 0 /100 WBC 0-0 (BEAKER) (test code = 413) NEUTROPHILS RELATIVE PERCENT 76 % (BEAKER) (test code = 429) LYMPHOCYTES RELATIVE PERCENT 13 % (BEAKER) (test code = 430) MONOCYTES RELATIVE PERCENT 8 % (BEAKER) (test code = 431) EOSINOPHILS RELATIVE PERCENT 2 % (BEAKER) (test code = 432) BASOPHILS RELATIVE PERCENT 1 % (BEAKER) (test code = 437) NEUTROPHILS ABSOLUTE COUNT 5.75 K/ L 1.56-6.13 (BEAKER) (test code = 670) LYMPHOCYTES ABSOLUTE COUNT 0.98 K/ L 1.18-3.74 L (BEAKER) (test code = 414) MONOCYTES ABSOLUTE COUNT (BEAKER) 0.64 K/ L 0.24-0.36 H (test code = 415) EOSINOPHILS ABSOLUTE COUNT 0.16 K/ L 0.04-0.36 (BEAKER) (test code = 416) BASOPHILS ABSOLUTE COUNT (BEAKER) 0.04 K/ L 0.01-0.08 (test code = 417) IMMATURE GRANULOCYTES-RELATIVE 1 % 0-1 PERCENT (BEAKER) (test code = 2806) POCT-GLUCOSE [id number] 21:03:00 Test Item Value Reference Range Interpretation Comments POC-GLUCOSE METER 239 mg/dL 70-110 H TESTED AT [facility] 6720 (BEAKER) (test code = [address] [facility] 1538) [id number] POCT-GLUCOSE [id number] 17:20:00 Test Item Value Reference Range Interpretation Comments POC-GLUCOSE METER 201 mg/dL 70-110 H TESTED AT [place] [address] ([facility]) (test code = KARINA Betts [facility] 1538) [id number] HEMOGLOBIN AND [id number] 16:41:00 Test Item Value Reference Range Interpretation Comments HEMOGLOBIN (BEAKER) (test code = 9.8 GM/DL 11.2-15.7 L 410) HEMATOCRIT (BEAKER) (test code = 29.3 % 34.1-44.9 L 411) Draw after transfusion has been completed.POCT-GLUCOSE [id number] 12:59:00 Test Item Value Reference Range Interpretation Comments POC-GLUCOSE METER 133 mg/dL 70-110 H TESTED AT [place] [address] ([facility]) (test code = KARINA Betts [facility] 1538) [id number] URINE [id number] 11:53:00 Test Item Value Reference Range Interpretation Comments CULTURE ([facility]) (test code = 1095) No growth POCT-GLUCOSE [id number] 09:34:00 Test Item Value Reference Range Interpretation Comments POC-GLUCOSE METER 97 mg/dL 70-110 TESTED AT [place] [address] ([facility]) (test code = KARINA Betts [facility] [address] 1538) CBC W/PLT COUNT & AUTO [id number] 05:55:00 Test Item Value Reference Range Interpretation Comments WHITE BLOOD CELL COUNT (BEAKER) 9.1 K/ L 3.5-10.5 (test code = 775) RED BLOOD CELL COUNT (BEAKER) 2.11 M/ L 3.93-5.22 L (test code = 761) HEMOGLOBIN (BEAKER) (test code = 6.8 GM/DL 11.2-15.7 L 410) HEMATOCRIT (BEAKER) (test code = 20.2 % 34.1-44.9 L 411) MEAN CORPUSCULAR VOLUME (BEAKER) 95.7 fL 79.4-94.8 H (test code = 753) MEAN CORPUSCULAR HEMOGLOBIN 32.2 pg 25.6-32.2 (BEAKER) (test code = 751) MEAN CORPUSCULAR HEMOGLOBIN CONC 33.7 GM/DL 32.2-35.5 (BEAKER) (test code = 752) RED CELL DISTRIBUTION WIDTH 13.7 % 11.7-14.4 (BEAKER) (test code = 412) PLATELET COUNT (BEAKER) (test 280 K/CU MM 150-450 code = 756) MEAN PLATELET VOLUME (BEAKER) 10.3 fL 9.4-12.3 (test code = 754) NUCLEATED RED BLOOD CELLS 0 /100 WBC 0-0 (BEAKER) (test code = 413) NEUTROPHILS RELATIVE PERCENT 77 % (BEAKER) (test code = 429) LYMPHOCYTES RELATIVE PERCENT 11 % (BEAKER) (test code = 430) MONOCYTES RELATIVE PERCENT 10 % (BEAKER) (test code = 431) EOSINOPHILS RELATIVE PERCENT 2 % (BEAKER) (test code = 432) BASOPHILS RELATIVE PERCENT 0 % (BEAKER) (test code = 437) NEUTROPHILS ABSOLUTE COUNT 7.01 K/ L 1.56-6.13 H (BEAKER) (test code = 670) LYMPHOCYTES ABSOLUTE COUNT 0.98 K/ L 1.18-3.74 L (BEAKER) (test code = 414) MONOCYTES ABSOLUTE COUNT (BEAKER) 0.89 K/ L 0.24-0.36 H (test code = 415) EOSINOPHILS ABSOLUTE COUNT 0.19 K/ L 0.04-0.36 (BEAKER) (test code = 416) BASOPHILS ABSOLUTE COUNT (BEAKER) 0.01 K/ L 0.01-0.08 (test code = 417) IMMATURE GRANULOCYTES-RELATIVE 1 % 0-1 PERCENT (BEAKER) (test code = 2801) BASIC METABOLIC [id number] 05:53:00 Test Item Value Reference Range Interpretation Comments SODIUM (BEAKER) 129 meq/L 136-145 L (test code = 381) POTASSIUM (BEAKER) 3.4 meq/L 3.5-5.1 L (test code = 379) CHLORIDE (BEAKER) 96 meq/L 98-107 L (test code = 382) CO2 (BEAKER) (test 22 meq/L 22-29 code = 355) BLOOD UREA NITROGEN 12 mg/dL 7-21 (BEAKER) (test code = 354) CREATININE (BEAKER) 0.74 mg/dL 0.57-1.25 (test code = 358) GLUCOSE RANDOM 86 mg/dL 70-105 (BEAKER) (test code = 652) CALCIUM (BEAKER) 9.2 mg/dL 8.4-10.2 (test code = 697) EGFR (BEAKER) (test 81 mL/min/1.73 ESTIMA KOLE GFR IS code = 1092) sq m NOT ACCURATE CREATININE CLEARANCE IN PREDICTING GLOMERULAR FILTRATION RATE . ESTIMATED GFR I S NOT APPLICABLE FOR DIALYSIS PATIEN TS. POCT-GLUCOSE [id number] 21:23:00 Test Item Value Reference Range Interpretation Comments POC-GLUCOSE METER 142 mg/dL 70-110 H TESTED AT [place] [address] ([facility]) (test code = KARINA Betts [facility] 1538) [address] RAD, CHEST, 1 VIEW, NON [id number] 15:31:00Reason for exam:->post ct removalFINAL REPORT TECHNIQUE: [...] changes are seen in the spine. Signed: Augustina Lópezeport Verified Date/Time: 07/28/2017 15:31:00 Reading Location: [facility] Radiology Reading Room POCT-GLUCOSE [id number] 12:12:00 Test Item Value Reference Range Interpretation Comments POC-GLUCOSE METER 100 mg/dL 70-110 TESTED AT [place] [address] ([facility]) (test code = KARINA Betts [facility] 1538) [id number] POCT-GLUCOSE [id number] 06:41:00 Test Item Value Reference Range Interpretation Comments POC-GLUCOSE METER 143 mg/dL 70-110 H TESTED AT [place] [address] ([facility]) (test code = RADHANC Roxane [facility] 1538) [id number] RAD, CHEST, 1 VIEW, NON [id number] 05:13:00Reason for exam:->Post opShould this be performed at the bedside?->YesFINAL REPORT RAD, CHEST, 1 VIEW, NON DEPT INDICATION: Post op COMPARISON: Prior day's exam FINDINGS: Portable frontal view of the [...] MDReport Verified Date/Time: 07/28/2017 05:13:19 Reading Location: [facility] C013Y CT Body Reading Room BLOOD GAS, [id number] 05:03:00 Test Item Value Reference Range Interpretation Comments PH ARTERIAL (BEAKER) (test code = 7.39 7.35-7.45 383) PCO2 ARTERIAL (BEAKER) (test code 39 mmHg 35-45 = 384) PO2 ARTERIAL (BEAKER) (test code 105 mmHg 80-90 H = 385) O2 SATURATION ARTERIAL (BEAKER) 97.9 % 96.0-97.0 H (test code = 386) HCO3 ARTERIAL (BEAKER) (test code 23 mmol/L 21-29 = 388) BASE EXCESS ARTERIAL (BEAKER) -1.8 mmol/L -2.0-3.0 (test code = 387) PATIENT TEMPERATURE (BEAKER) 36.6 C (test code = 1818) FIO2 (BEAKER) (test code = 1819) 36.0 % [id number] 04:52:00 Test Item Value Reference Range Interpretation Comments PROTIME (BEAKER) (test code = 14.9 seconds 11.7-14.7 H 759) INR (BEAKER) (test code = 370) 1.2 <=5.9 PARTIAL THROMBOPLASTIN TIME 36.9 seconds 22.5-36.0 H (BEAKER) (test code = 760) RECOMMENDED COUMADIN/WARFARIN INR THERAPY RANGESSTANDARD DOSE: 2.0 - 3.0 Includes: PROPHYLAXIS forvenous thrombosis, systemic embolization; TREATMENT for venous thrombosis and/or pulmonary embolus.HIGH RISK: Target INR is 2.5-3.5 for patients with mechanical heart valves.[id number] 04:39:00 Test Item Value Reference Range Interpretation Comments MAGNESIUM (BEAKER) (test code = 1.9 mg/dL 1.6-2.6 627) BASIC METABOLIC [id number] 04:39:00 Test Item Value Reference Range Interpretation Comments SODIUM (BEAKER) 134 meq/L 136-145 L (test code = 381) POTASSIUM (BEAKER) 4.0 meq/L 3.5-5.1 (test code = 379) CHLORIDE (BEAKER) 103 meq/L 98-107 (test code = 382) CO2 (BEAKER) (test 23 meq/L 22-29 code = 355) BLOOD UREA NITROGEN 14 mg/dL 7-21 (BEAKER) (test code = 354) CREATININE (BEAKER) 0.81 mg/dL 0.57-1.25 (test code = 358) GLUCOSE RANDOM 148 mg/dL 70-105 H (BEAKER) (test code = 652) CALCIUM (BEAKER) 9.4 mg/dL 8.4-10.2 (test code = 697) EGFR (BEAKER) (test 73 mL/min/1.73 ESTIMA KOLE GFR IS code = 1092) sq m NOT ACCURATE CREATININE CLEARANCE IN PREDICTING GLOMERULAR FILTRATION RATE . ESTIMATED GFR I S NOT APPLICABLE FOR DIALYSIS PATIEN TS. CBC W/PLT COUNT & AUTO [id number] 04:24:00 Test Item Value Reference Range Interpretation Comments WHITE BLOOD CELL COUNT (BEAKER) 7.9 K/ L 3.5-10.5 (test code = 775) RED BLOOD CELL COUNT (BEAKER) 2.49 M/ L 3.93-5.22 L (test code = 761) HEMOGLOBIN (BEAKER) (test code = 7.9 GM/DL 11.2-15.7 L 410) HEMATOCRIT (BEAKER) (test code = 23.6 % 34.1-44.9 L 411) MEAN CORPUSCULAR VOLUME (BEAKER) 94.8 fL 79.4-94.8 (test code = 753) MEAN CORPUSCULAR HEMOGLOBIN 31.7 pg 25.6-32.2 (BEAKER) (test code = 751) MEAN CORPUSCULAR HEMOGLOBIN CONC 33.5 GM/DL 32.2-35.5 (BEAKER) (test code = 752) RED CELL DISTRIBUTION WIDTH 15.1 % 11.7-14.4 H (BEAKER) (test code = 412) PLATELET COUNT (BEAKER) (test 284 K/CU MM 150-450 code = 756) MEAN PLATELET VOLUME (BEAKER) 10.1 fL 9.4-12.3 (test code = 754) NUCLEATED RED BLOOD CELLS 0 /100 WBC 0-0 (BEAKER) (test code = 413) NEUTROPHILS RELATIVE PERCENT 77 % (BEAKER) (test code = 429) LYMPHOCYTES RELATIVE PERCENT 8 % (BEAKER) (test code = 430) MONOCYTES RELATIVE PERCENT 14 % (BEAKER) (test code = 431) EOSINOPHILS RELATIVE PERCENT 1 % (BEAKER) (test code = 432) BASOPHILS RELATIVE PERCENT 0 % (BEAKER) (test code = 437) NEUTROPHILS ABSOLUTE COUNT 6.04 K/ L 1.56-6.13 (BEAKER) (test code = 670) LYMPHOCYTES ABSOLUTE COUNT 0.62 K/ L 1.18-3.74 L (BEAKER) (test code = 414) MONOCYTES ABSOLUTE COUNT (BEAKER) 1.12 K/ L 0.24-0.36 H (test code = 415) EOSINOPHILS ABSOLUTE COUNT 0.04 K/ L 0.04-0.36 (BEAKER) (test code = 416) BASOPHILS ABSOLUTE COUNT (BEAKER) 0.02 K/ L 0.01-0.08 (test code = 417) IMMATURE GRANULOCYTES-RELATIVE 0 % 0-1 PERCENT (BEAKER) (test code = 2801) [id number] 01:03:00 Test Item Value Reference Range Interpretation Comments POTASSIUM (BEAKER) (test code = 4.0 meq/L 3.5-5.1 379) [id number] 01:03:00 Test Item Value Reference Range Interpretation Comments MAGNESIUM (BEAKER) (test code = 2.0 mg/dL 1.6-2.6 627) POCT-GLUCOSE [id number] 01:01:00 Test Item Value Reference Range Interpretation Comments POC-GLUCOSE METER 150 mg/dL 70-110 H TESTED AT [facility] 6720 (BEAKER) (test code = KARINA Betts [facility] 1538) [id number] HEMOGLOBIN AND [id number] 00:51:00 Test Item Value Reference Range Interpretation Comments HEMOGLOBIN (BEAKER) (test code = 8.3 GM/DL 11.2-15.7 L 410) HEMATOCRIT (BEAKER) (test code = 24.0 % 34.1-44.9 L 411) CALCIUM, [id number] 00:48:00 Test Item Value Reference Range Interpretation Comments CALCIUM IONIZED (BEAKER) (test 1.25 mmol/L 1.12-1.27 code = 698) PH, BLOOD (BEAKER) (test code = 7.39 1810) BLOOD GAS, [id number] 20:03:00 Test Item Value Reference Range Interpretation Comments PH ARTERIAL (BEAKER) (test code = 7.41 7.35-7.45 383) PCO2 ARTERIAL (BEAKER) (test code 37 mmHg 35-45 = 384) PO2 ARTERIAL (BEAKER) (test code 103 mmHg 80-90 H = 385) O2 SATURATION ARTERIAL (BEAKER) 97.8 % 96.0-97.0 H (test code = 386) HCO3 ARTERIAL (BEAKER) (test code 23 mmol/L - = 388) BASE EXCESS ARTERIAL (BEAKER) -1.8 mmol/L -2.0-3.0 (test code = 387) PATIENT TEMPERATURE (BEAKER) 36.7 C (test code = 1818) FIO2 (BEAKER) (test code = 1819) 32.0 % POCT-GLUCOSE [id number] 18:26:00 Test Item Value Reference Range Interpretation Comments POC-GLUCOSE METER 169 mg/dL 70-110 H TESTED AT [facility] 6720 (BEAKER) (test code = [place] 1538) [address] BLOOD GAS, [id number] 16:32:00 Test Item Value Reference Range Interpretation Comments PH ARTERIAL (BEAKER) (test code = 7.45 7.35-7.45 383) PCO2 ARTERIAL (BEAKER) (test code 32 mmHg 35-45 L = 384) PO2 ARTERIAL (BEAKER) (test code 155 mmHg 80-90 H = 385) O2 SATURATION ARTERIAL (BEAKER) 99.1 % 96.0-97.0 H (test code = 386) HCO3 ARTERIAL (BEAKER) (test code 22 mmol/L -29 = 388) BASE EXCESS ARTERIAL (BEAKER) -1.6 mmol/L -2.0-3.0 (test code = 387) PATIENT TEMPERATURE (BEAKER) 36.7 C (test code = 1818) FIO2 (BEAKER) (test code = 1819) 40.0 % HEMOGLOBIN AND [id number] 15:45:00 Test Item Value Reference Range Interpretation Comments HEMOGLOBIN (BEAKER) (test code = 8.9 GM/DL 11.2-15.7 L 410) HEMATOCRIT (BEAKER) (test code = 25.6 % 34.1-44.9 L 411) FACTOR 10 [id number] 15:30:00 Test Item Value Reference Range Interpretation Comments FACTOR X ACTIVITY (BEAKER) (test code 79.0 % 70.0-120.0 = 662) [id number] 13:47:00 Test Item Value Reference Range Interpretation Comments FIBRINOGEN LEVEL (BEAKER) (test 567 mg/dl 225-434 H code = 658) PROTHROMBIN [id number] 13:47:00 Test Item Value Reference Range Interpretation Comments PROTIME (BEAKER) (test code = 17.5 seconds 11.7-14.7 H 759) INR (BEAKER) (test code = 370) 1.4 <=5.9 RECOMMENDED COUMADIN/WARFARIN INR THERAPY RANGESSTANDARD DOSE: 2.0 - 3.0 Includes: PROPHYLAXIS forvenous thrombosis, systemic embolization; TREATMENT for venous thrombosis and/or pulmonary embolus.HIGH RISK: Target INR is 2.5-3.5 for patients with mechanical heart valves.[id number] 13:47:00 Test Item Value Reference Range Interpretation Comments PARTIAL THROMBOPLASTIN TIME 35.0 seconds 22.5-36.0 (BEAKER) (test code = 760) RAD, CHEST, 1 VIEW, NON [id number] 13:16:00Reason for exam:->Post OpShould this be performed [...] MDReport Verified Date/Time: 07/27/2017 13:16:03 Reading Location: [facility] B1 [id number] Consult Reading Room Electronicallysigned by: HEMANT PAIGE M.D. on 07/27/2017 01:16 PMTHROMBOELASTOGRAPH (TEG)2017-07-27 12:58:00 Test Item Value Reference Range Interpretation Comments TEG ACTIVATED CLOTTING TIME 4.5 minutes 4.0-7.0 (BEAKER) (test code = 1407) TEG FIBRINOGEN ACTIVITY (BEAKER) 77.4 degrees 61.0-73.0 H (test code = 1408) TEG PLT. AGGREGATION (BEAKER) 76.9 MM 55.0-65.0 H (test code = 1409) TEG FIBRINOLYSIS (BEAKER) (test 0.0 % 0.0-5.0 code = 1410) TGH ACTIVATED CLOTTING TIME 4.3 minutes 4.0-7.0 (BEAKER) (test code = 1411) TGH FIBRINOGEN ACTIVITY (BEAKER) 75.7 degrees 61.0-73.0 H (test code = 1412) TGH PLT. AGGREGATION (BEAKER) 73.8 MM 55.0-65.0 H (test code = 1413) [facility] FIBRINOLYSIS (BEAKER) (test 0.0 % 0.0-5.0 code = 1414) CBC W/PLT COUNT & AUTO [id number] 12:37:00 Test Item Value Reference Range Interpretation Comments WHITE BLOOD CELL COUNT (BEAKER) 13.7 K/ L 3.5-10.5 H (test code = 775) RED BLOOD CELL COUNT (BEAKER) 2.29 M/ L 3.93-5.22 L (test code = 761) HEMOGLOBIN (BEAKER) (test code = 7.8 GM/DL 11.2-15.7 L 410) HEMATOCRIT (BEAKER) (test code = 22.5 % 34.1-44.9 L 411) MEAN CORPUSCULAR VOLUME (BEAKER) 98.3 fL 79.4-94.8 H (test code = 753) MEAN CORPUSCULAR HEMOGLOBIN 34.1 pg 25.6-32.2 H (BEAKER) (test code = 751) MEAN CORPUSCULAR HEMOGLOBIN CONC 34.7 GM/DL 32.2-35.5 (BEAKER) (test code = 752) RED CELL DISTRIBUTION WIDTH 13.6 % 11.7-14.4 (BEAKER) (test code = 412) PLATELET COUNT (BEAKER) (test 295 K/CU MM 150-450 code = 756) MEAN PLATELET VOLUME (BEAKER) 9.8 fL 9.4-12.3 (test code = 754) NUCLEATED RED BLOOD CELLS 0 /100 WBC 0-0 (BEAKER) (test code = 413) NEUTROPHILS RELATIVE PERCENT 87 % (BEAKER) (test code = 429) LYMPHOCYTES RELATIVE PERCENT 8 % (BEAKER) (test code = 430) MONOCYTES RELATIVE PERCENT 4 % (BEAKER) (test code = 431) EOSINOPHILS RELATIVE PERCENT 1 % (BEAKER) (test code = 432) BASOPHILS RELATIVE PERCENT 0 % (BEAKER) (test code = 437) NEUTROPHILS ABSOLUTE COUNT 11.94 K/ L 1.56-6.13 H (BEAKER) (test code = 670) LYMPHOCYTES ABSOLUTE COUNT 1.03 K/ L 1.18-3.74 L (BEAKER) (test code = 414) MONOCYTES ABSOLUTE COUNT (BEAKER) 0.48 K/ L 0.24-0.36 H (test code = 415) EOSINOPHILS ABSOLUTE COUNT 0.08 K/ L 0.04-0.36 (BEAKER) (test code = 416) BASOPHILS ABSOLUTE COUNT (BEAKER) 0.02 K/ L 0.01-0.08 (test code = 417) IMMATURE GRANULOCYTES-RELATIVE 1 % 0-1 PERCENT (BEAKER) (test code = 2801) [id number] 12:19:00 Test Item Value Reference Range Interpretation Comments MAGNESIUM (BEAKER) (test code = 2.9 mg/dL 1.6-2.6 H 627) COMPREHENSIVE METABOLIC [id number] 12:19:00 Test Item Value Reference Range Interpretation Comments TOTAL PROTEIN 5.7 gm/dL 6.0-8.3 L (BEAKER) (test code = 770) ALBUMIN (BEAKER) 3.1 g/dL 3.5-5.0 L (test code = 1145) ALKALINE PHOSPHATASE 69 U/L 40-150 (BEAKER) (test code = 346) BILIRUBIN TOTAL 0.9 mg/dL 0.2-1.2 (BEAKER) (test code = 377) SODIUM (BEAKER) (test 134 meq/L 136-145 L code = 381) POTASSIUM (BEAKER) 4.7 meq/L 3.5-5.1 (test code = 379) CHLORIDE (BEAKER) 101 meq/L 98-107 (test code = 382) CO2 (BEAKER) (test 22 meq/L 22-29 code = 355) BLOOD UREA NITROGEN 12 mg/dL 7-21 (BEAKER) (test code = 354) CREATININE (BEAKER) 0.77 mg/dL 0.57-1.25 (test code = 358) GLUCOSE RANDOM 200 mg/dL 70-105 H (BEAKER) (test code = 652) CALCIUM (BEAKER) 10.8 mg/dL 8.4-10.2 H (test code = 697) AST (SGOT) (BEAKER) 32 U/L 5-34 (test code = 353) ALT (SGPT) (BEAKER) 34 U/L 6-55 (test code = 347) EGFR (BEAKER) (test 77 mL/min/1.73 ESTIMA KOLE GFR IS code = 1092) sq m NOT ACCURATE CREATININE CLEARANCE IN PREDICTING GLOMERULAR FILTRATION RATE . ESTIMATED GFR I S NOT APPLICABLE FOR DIALYSIS PATIEN TS. LACTIC ACID, ARTERIAL, WHOLE [id number] 12:14:00 Test Item Value Reference Range Interpretation Comments LACTATE BLOOD ARTERIAL (2) 0.9 mmol/L 0.5-2.2 (BEAKER) (test code = 2874) Effective 12/31/2015: Units/Reference Range ChangeNew: 0.5-2.2 mmol/L Previous: 5-20 mg/dLOXYGEN SATURATION, [id number] 11:46:00 Test Item Value Reference Range Interpretation Comments O2 SATURATION (MEASURED) (BEAKER) 81.7 % (test code = 1455) BLOOD GAS, [id number] 11:44:00 Test Item Value Reference Range Interpretation Comments PH ARTERIAL (BEAKER) (test code = 7.46 7.35-7.45 H 383) PCO2 ARTERIAL (BEAKER) (test code 33 mmHg 35-45 L = 384) PO2 ARTERIAL (BEAKER) (test code 221 mmHg 80-90 H = 385) O2 SATURATION ARTERIAL (BEAKER) 99.5 % 96.0-97.0 H (test code = 386) HCO3 ARTERIAL (BEAKER) (test code 23 mmol/L = 388) BASE EXCESS ARTERIAL (BEAKER) -0.9 mmol/L -2.0-3.0 (test code = 387) PATIENT TEMPERATURE (BEAKER) 34.2 C (test code = 1818) FIO2 (BEAKER) (test code = 1819) 60.0 % SODIUM NA-STAT [id number] 11:44:00 Test Item Value Reference Range Interpretation Comments SODIUM (BEAKER) (test code = 381) 130 meq/L 135-148 L GLUCOSE-STAT [id number] 11:44:00 Test Item Value Reference Range Interpretation Comments GLUCOSE RANDOM (BEAKER) (test code 194 mg/dL 70-110 H = 652) HGB/HCT (H&H) - STAT [id number] 11:44:00 Test Item Value Reference Range Interpretation Comments HEMOGLOBIN (BEAKER) (test code = 8.1 g/dL 12.0-15.0 L 410) HEMATOCRIT (BEAKER) (test code = 24.0 % 36.0-45.0 L 411) FILTER IONIZED [id number] 11:44:00 Test Item Value Reference Range Interpretation Comments FILTER IONIZED CALCIUM (BEAKER) 1.35 nnol/L (test code = 1854) Reference Range: No NormalsPOTASSIUM-STAT [id number] 11:43:00 Test Item Value Reference Range Interpretation Comments POTASSIUM (BEAKER) (test code = 4.5 meq/L 3.6-5.5 379) THROMBOELASTOGRAPH (TEG)2017-07-27 11:29:00 Test Item Value Reference Range Interpretation Comments TEG ACTIVATED CLOTTING TIME 6.9 minutes 4.0-7.0 (BEAKER) (test code = 1407) TEG FIBRINOGEN ACTIVITY (BEAKER) 69.8 degrees 61.0-73.0 (test code = 1408) TEG PLT. AGGREGATION (BEAKER) 50.7 MM 55.0-65.0 L (test code = 1409) TGH ACTIVATED CLOTTING TIME 7.4 minutes 4.0-7.0 H (BEAKER) (test code = 1411) TGH FIBRINOGEN ACTIVITY (BEAKER) 77.9 degrees 61.0-73.0 H (test code = 1412) TGH PLT. AGGREGATION (BEAKER) 58.6 MM 55.0-65.0 (test code = 1413) PLATELET [id number] 11:08:00 Test Item Value Reference Range Interpretation Comments PLATELET COUNT (BEAKER) (test 142 K/CU MM 150-450 L code = 756) CALCIUM, [id number] 10:35:00 Test Item Value Reference Range Interpretation Comments CALCIUM IONIZED (BEAKER) (test 0.91 mmol/L 1.12-1.27 L code = 698) PH, BLOOD (BEAKER) (test code = 7.31 1810) BLOOD GAS, [id number] 10:35:00 Test Item Value Reference Range Interpretation Comments PH ARTERIAL (BEAKER) (test code = 7.34 7.35-7.45 L 383) PCO2 ARTERIAL (BEAKER) (test code 41 mmHg 35-45 = 384) PO2 ARTERIAL (BEAKER) (test code 204 mmHg 80-90 H = 385) O2 SATURATION ARTERIAL (BEAKER) 99.3 % 96.0-97.0 H (test code = 386) HCO3 ARTERIAL (BEAKER) (test code 22 mmol/L 21-29 = 388) BASE EXCESS ARTERIAL (BEAKER) -3.8 mmol/L -2.0-3.0 L (test code = 387) PATIENT TEMPERATURE (BEAKER) 35.0 C (test code = 1818) FIO2 (BEAKER) (test code = 1819) 100.0 % SODIUM NA-STAT [id number] 10:35:00 Test Item Value Reference Range Interpretation Comments SODIUM (BEAKER) (test code = 381) 130 meq/L 135-148 L GLUCOSE-STAT [id number] 10:35:00 Test Item Value Reference Range Interpretation Comments GLUCOSE RANDOM (BEAKER) (test code 194 mg/dL 70-110 H = 652) HGB/HCT (H&H) - STAT [id number] 10:35:00 Test Item Value Reference Range Interpretation Comments HEMOGLOBIN (BEAKER) (test code = 10.3 g/dL 12.0-15.0 L 410) HEMATOCRIT ([facility]) (test code = 30.0 % 36.0-45.0 L 411) POTASSIUM-STAT [id number] 10:34:00 Test Item Value Reference Range Interpretation Comments POTASSIUM ([facility]) (test code = 5.1 meq/L 3.6-5.5 379) [id number] 10:26:00 Test Item Value Reference Range Interpretation Comments ACTIVATED CLOTTING TIME 131 sec TEST ED AT [place] [address] ([facility]) (test code = KARINA Betts [place] [address]) [id number] 10:26:00 Test Item Value Reference Range Interpretation Comments ACTIVATED CLOTTING TIME 521 sec TEST ED AT [place] [address] ([facility]) (test code = KARINA Betts [place] [address]) [id number] 10:26:00 Test Item Value Reference Range Interpretation Comments ACTIVATED CLOTTING TIME 521 sec TEST ED AT [place] [address] ([facility]) (test code = KARINA Betts [place] [address]) [id number] 10:26:00 Test Item Value Reference Range Interpretation Comments ACTIVATED CLOTTING TIME 505 sec TEST ED AT [place] [address] ([facility]) (test code = KARINA Betts [place] [address]) [id number] 10:17:00 Test Item Value Reference Range Interpretation Comments FIBRINOGEN LEVEL ([facility]) (test 536 mg/dl 225-434 H code = 658) [id number] 10:17:00 Test Item Value Reference Range Interpretation Comments PARTIAL THROMBOPLASTIN TIME 38.7 seconds 22.5-36.0 H ([facility]) (test code = 760) PROTHROMBIN [id number] 10:16:00 Test Item Value Reference Range Interpretation Comments PROTIME ([facility]) (test code = 18.8 seconds 11.7-14.7 H 759) INR ([facility]) (test code = 370) 1.6 <=5.9 RECOMMENDED COUMADIN/WARFARIN INR THERAPY RANGESSTANDARD DOSE: 2.0 - 3.0 Includes: PROPHYLAXIS forvenous thrombosis, systemic embolization; TREATMENT for venous thrombosis and/or pulmonary embolus.HIGH RISK: Target INR is 2.5-3.5 for patients with mechanical heart valves.PLATELET AGGREGATION: FUNCTION SCREEN 2017-07-27 10:14:00 Test Item Value Reference Range Interpretation Comments WEAK ADP 51 % 60-91 L RESULT(BEAKER) (test code = 2135) PLATELET FUNCTION 50-59% indicates mild SCREEN INTERP platelet dysfunction (BEAKER) (test code = 2173) [id number] Yuri Quijano M.D. (BEAKER) (test code = (electonic signature) 2921) PLATELET COUNT AGG 410 K/CU MM 150-450 (BEAKER) (test code = 1846) for patients on clopidogrel in past two weeksCALCIUM, [id number] 09:46:00 Test Item Value Reference Range Interpretation Comments CALCIUM IONIZED (BEAKER) (test 1.41 mmol/L 1.12-1.27 H code = 698) PH, BLOOD (BEAKER) (test code = 7.30 1810) BLOOD GAS, [id number] 09:45:00 Test Item Value Reference Range Interpretation Comments PH ARTERIAL (BEAKER) (test code = 7.32 7.35-7.45 L 383) PCO2 ARTERIAL (BEAKER) (test code 42 mmHg 35-45 = 384) PO2 ARTERIAL (BEAKER) (test code 438 mmHg 80-90 H = 385) O2 SATURATION ARTERIAL (BEAKER) 99.8 % 96.0-97.0 H (test code = 386) HCO3 ARTERIAL (BEAKER) (test code 21 mmol/L 21-29 = 388) BASE EXCESS ARTERIAL (BEAKER) -4.9 mmol/L -2.0-3.0 L (test code = 387) PATIENT TEMPERATURE (BEAKER) 35.6 C (test code = 1818) FIO2 (BEAKER) (test code = 1819) 100.0 % SODIUM NA-STAT [id number] 09:45:00 Test Item Value Reference Range Interpretation Comments SODIUM (BEAKER) (test code = 381) 124 meq/L 135-148 L POTASSIUM-STAT [id number] 09:45:00 Test Item Value Reference Range Interpretation Comments POTASSIUM (BEAKER) (test code = 5.8 meq/L 3.6-5.5 H 379) GLUCOSE-STAT [id number] 09:45:00 Test Item Value Reference Range Interpretation Comments GLUCOSE RANDOM (BEAKER) (test code 172 mg/dL 70-110 H = 652) HGB/HCT (H&H) - STAT [id number] 09:45:00 Test Item Value Reference Range Interpretation Comments HEMOGLOBIN (BEAKER) (test code = 8.6 g/dL 12.0-15.0 L 410) HEMATOCRIT (BEAKER) (test code = 25.0 % 36.0-45.0 L 411) BLOOD GAS, [id number] 09:31:00 Test Item Value Reference Range Interpretation Comments PH ARTERIAL (BEAKER) (test code = 7.35 7.35-7.45 383) PCO2 ARTERIAL (BEAKER) (test code 39 mmHg 35-45 = 384) PO2 ARTERIAL (BEAKER) (test code 320 mmHg 80-90 H = 385) O2 SATURATION ARTERIAL (BEAKER) 99.7 % 96.0-97.0 H (test code = 386) HCO3 ARTERIAL (BEAKER) (test code 21 mmol/L 21-29 = 388) BASE EXCESS ARTERIAL (BEAKER) -4.2 mmol/L -2.0-3.0 L (test code = 387) PATIENT TEMPERATURE (BEAKER) 35.4 C (test code = 1818) FIO2 (BEAKER) (test code = 1819) 75.0 % SODIUM NA-STAT [id number] 09:31:00 Test Item Value Reference Range Interpretation Comments SODIUM (BEAKER) (test code = 381) 124 meq/L 135-148 L GLUCOSE-STAT [id number] 09:31:00 Test Item Value Reference Range Interpretation Comments GLUCOSE RANDOM (BEAKER) (test code 162 mg/dL 70-110 H = 652) HGB/HCT (H&H) - STAT [id number] 09:31:00 Test Item Value Reference Range Interpretation Comments HEMOGLOBIN (BEAKER) (test code = 8.8 g/dL 12.0-15.0 L 410) HEMATOCRIT (BEAKER) (test code = 26.0 % 36.0-45.0 L 411) POTASSIUM-STAT [id number] 09:31:00 Test Item Value Reference Range Interpretation Comments POTASSIUM (BEAKER) (test code = 6.2 meq/L 3.6-5.5 HH 379) BLOOD GAS, [id number] 09:09:00 Test Item Value Reference Range Interpretation Comments PH ARTERIAL (BEAKER) (test code = 7.46 7.35-7.45 H 383) PCO2 ARTERIAL (BEAKER) (test code 32 mmHg 35-45 L = 384) PO2 ARTERIAL (BEAKER) (test code 355 mmHg 80-90 H = 385) O2 SATURATION ARTERIAL (BEAKER) 99.8 % 96.0-97.0 H (test code = 386) HCO3 ARTERIAL (BEAKER) (test code 24 mmol/L 21-29 = 388) BASE EXCESS ARTERIAL (BEAKER) -1.6 mmol/L -2.0-3.0 (test code = 387) PATIENT TEMPERATURE (BEAKER) 30.3 C (test code = 1818) FIO2 (BEAKER) (test code = 1819) 70.0 % GLUCOSE-STAT [id number] 09:09:00 Test Item Value Reference Range Interpretation Comments GLUCOSE RANDOM (BEAKER) (test code 150 mg/dL 70-110 H = 652) POTASSIUM-STAT [id number] 09:08:00 Test Item Value Reference Range Interpretation Comments POTASSIUM (BEAKER) (test code = 5.5 meq/L 3.6-5.5 379) HGB/HCT (H&H) - STAT [id number] 09:08:00 Test Item Value Reference Range Interpretation Comments HEMOGLOBIN (BEAKER) (test code = 7.6 g/dL 12.0-15.0 L 410) HEMATOCRIT (BEAKER) (test code = 22.0 % 36.0-45.0 L 411) SODIUM NA-STAT [id number] 09:08:00 Test Item Value Reference Range Interpretation Comments SODIUM (BEAKER) (test code = 381) 124 meq/L 135-148 L POTASSIUM-STAT [id number] 08:00:00 Test Item Value Reference Range Interpretation Comments POTASSIUM (BEAKER) (test code = 3.8 meq/L 3.6-5.5 379) CALCIUM, [id number] 08:00:00 Test Item Value Reference Range Interpretation Comments CALCIUM IONIZED (BEAKER) (test 1.15 mmol/L 1.12-1.27 code = 698) PH, BLOOD (BEAKER) (test code = 7.38 1810) BLOOD GAS, [id number] 08:00:00 Test Item Value Reference Range Interpretation Comments PH ARTERIAL (BEAKER) (test code = 7.38 7.35-7.45 383) PCO2 ARTERIAL (BEAKER) (test code 34 mmHg 35-45 L = 384) PO2 ARTERIAL (BEAKER) (test code 426 mmHg 80-90 H = 385) O2 SATURATION ARTERIAL (BEAKER) 99.8 % 96.0-97.0 H (test code = 386) HCO3 ARTERIAL (BEAKER) (test code 20 mmol/L 21-29 L = 388) BASE EXCESS ARTERIAL (BEAKER) -4.9 mmol/L -2.0-3.0 L (test code = 387) PATIENT TEMPERATURE (BEAKER) 37.2 C (test code = 1818) FIO2 (BEAKER) (test code = 1819) 100.0 % SODIUM NA-STAT [id number] 08:00:00 Test Item Value Reference Range Interpretation Comments SODIUM (BEAKER) (test code = 381) 130 meq/L 135-148 L GLUCOSE-STAT [id number] 08:00:00 Test Item Value Reference Range Interpretation Comments GLUCOSE RANDOM (BEAKER) (test code 134 mg/dL 70-110 H = 652) HGB/HCT (H&H) - STAT [id number] 08:00:00 Test Item Value Reference Range Interpretation Comments HEMOGLOBIN (BEAKER) (test code = 10.4 g/dL 12.0-15.0 L 410) HEMATOCRIT (BEAKER) (test code = 31.0 % 36.0-45.0 L 411) RAD, CHEST, 1 VIEW, NON [id number] 07:24:00Reason for exam:->pre opShould this be performed at the bedside?->YesFINAL REPORT Chest one view. Clinical history: pre op Comparison: No priors Discussion: A frontal chest is provided. The cardiac and mediastinal contours are normal. There is no pneumothorax, henrietta pulmonary edema, consolidation or significant pleural effusion. The bony structures are unremarkable. Signed: Hemant Paige Verified Date/Time: 07/27/2017 07:24:49 ReadingLocation: [facility] Electronically signed by: HEMANT PAIGE M.D. on 07:24 [id number] 04:33:00 Test Item Value Reference Range Interpretation Comments PROTIME (BEAKER) (test code = 14.0 seconds 11.7-14.7 759) INR (BEAKER) (test code = 370) 1.1 <=5.9 PARTIAL THROMBOPLASTIN TIME 40.0 seconds 22.5-36.0 H (BEAKER) (test code = 760) RECOMMENDED COUMADIN/WARFARIN INR THERAPY RANGESSTANDARD DOSE: 2.0 - 3.0 Includes: PROPHYLAXIS forvenous thrombosis, systemic embolization; TREATMENT for venous thrombosis and/or pulmonary embolus.HIGH RISK: Target INR is 2.5-3.5 for patients with mechanical heart valves.PROTHROMBIN [id number] 04:32:00 Test Item Value Reference Range Interpretation Comments PROTIME (BEAKER) (test code = 14.0 seconds 11.7-14.7 759) INR (BEAKER) (test code = 370) 1.1 <=5.9 RECOMMENDED COUMADIN/WARFARIN INR THERAPY RANGESSTANDARD DOSE: 2.0 - 3.0 Includes: PROPHYLAXIS forvenous thrombosis, systemic embolization; TREATMENT for venous thrombosis and/or pulmonary embolus.HIGH RISK: Target INR is 2.5-3.5 for patients with mechanical heart valves.CBC (HEMOGRAM ONLY)2017-07-27 04:18:00 Test Item Value Reference Range Interpretation Comments WHITE BLOOD CELL COUNT (BEAKER) 9.9 K/ L 3.5-10.5 (test code = 775) RED BLOOD CELL COUNT (BEAKER) 2.92 M/ L 3.93-5.22 L (test code = 761) HEMOGLOBIN (BEAKER) (test code = 9.9 GM/DL 11.2-15.7 L 410) HEMATOCRIT (BEAKER) (test code = 28.7 % 34.1-44.9 L 411) MEAN CORPUSCULAR VOLUME (BEAKER) 98.3 fL 79.4-94.8 H (test code = 753) MEAN CORPUSCULAR HEMOGLOBIN 33.9 pg 25.6-32.2 H (BEAKER) (test code = 751) MEAN CORPUSCULAR HEMOGLOBIN CONC 34.5 GM/DL 32.2-35.5 (BEAKER) (test code = 752) RED CELL DISTRIBUTION WIDTH 12.6 % 11.7-14.4 (BEAKER) (test code = 412) PLATELET COUNT (BEAKER) (test 383 K/CU MM 150-450 code = 756) MEAN PLATELET VOLUME (BEAKER) 9.9 fL 9.4-12.3 (test code = 754) NUCLEATED RED BLOOD CELLS 0 /100 WBC 0-0 (BEAKER) (test code = 413) HEMOGLOBIN [id number] 20:12:00 Test Item Value Reference Range Interpretation Comments HEMOGLOBIN A1C (BEAKER) (test code = 6.6 % 4.3-6.1 H 368) PLATELET AGGREGATION: FUNCTION [id number] 18:20:00 Test Item Value Reference Range Interpretation Comments WEAK ADP 43 % 60-91 L RESULT(BEAKER) (test code = 2135) PLATELET FUNCTION 40-49% indicates SCREEN INTERP moderate platelet (BEAKER) (test code = dysfunction 2173) [id number] Yuri Quijano M.D. (BEAKER) (test code = (electonic signature) 2188) PLATELET COUNT AGG 417 K/CU MM 150-450 (BEAKER) (test code = 4316) for patients on clopidogrel in past two weeksLIPID [id number] 13:14:00 Test Item Value Reference Range Interpretation Comments TRIGLYCERIDES (BEAKER) 182 mg/dL Speci men slightly (test code = 540) hemolyzed CHOLESTEROL (BEAKER) 133 mg/dL Specime n slightly (test code = 631) hemolyzed HDL CHOLESTEROL (BEAKER) 31 mg/dL (test code = 976) LDL CHOLESTEROL 66 mg/dL CALCULATED (BEAKER) (test code = 633) Triglyceride Reference Range: Low Risk <150 Borderline 150-199 High Risk 200-499 Very High Risk >=500Cholesterol Reference Range: Low Risk <200 Borderline 200-239 High Risk >240HDL Cholesterol Reference Range: Low Risk >=60 High Risk <40LDL Cholesterol Reference Range: Optimal <100 Near Optimal 100-129 Borderline 130-159 High 160-189 Very High >=190BASIC METABOLIC [id number] 09:12:00 Test Item Value Reference Range Interpretation Comments SODIUM (BEAKER) 128 meq/L 136-145 L (test code = 381) POTASSIUM (BEAKER) 4.2 meq/L 3.5-5.1 Specimen slightly (test code = 379) hemolyzed CHLORIDE (BEAKER) 100 meq/L 98-107 (test code = 382) CO2 (BEAKER) (test 18 meq/L 22-29 L code = 355) BLOOD UREA NITROGEN 11 mg/dL 7-21 (BEAKER) (test code = 354) CREATININE (BEAKER) 0.86 mg/dL 0.57-1.25 Specimen slightly (test code = 358) hemolyzed GLUCOSE RANDOM 108 mg/dL 70-105 H (BEAKER) (test code = 652) CALCIUM (BEAKER) 9.5 mg/dL 8.4-10.2 (test code = 697) EGFR (BEAKER) (test 68 mL/min/1.73 ESTIMA KOLE GFR IS code = 1092) sq m NOT ACCURATE CREATININE CLEARANCE IN PREDICTING GLOMERULAR FILTRATION RATE . ESTIMATED GFR I S NOT APPLICABLE FOR DIALYSIS PATIEN TS. HEPATIC FUNCTION [id number] 09:12:00 Test Item Value Reference Range Interpretation Comments TOTAL PROTEIN (BEAKER) 7.0 gm/dL 6.0-8.3 Speci men slightly (test code = 770) hemolyzed ALBUMIN (BEAKER) (test 3.5 g/dL 3.5-5.0 Speci men slightly code = 1145) hemolyzed BILIRUBIN TOTAL 0.4 mg/dL 0.2-1.2 Specimen sli ghtly (BEAKER) (test code = hemoly zed 377) BILIRUBIN DIRECT 0.2 mg/dL 0.1-0.5 Specimen sl ightly (BEAKER) (test code = hemoly zed 706) ALKALINE PHOSPHATASE 82 U/L 40-150 (BEAKER) (test code = 346) AST (SGOT) (BEAKER) 32 U/L 5-34 Specimen slightly (test code = 353) hemolyzed ALT (SGPT) (BEAKER) 37 U/L 6-55 Specimen slightly (test code = 347) hemolyzed PROTHROMBIN [id number] 05:58:00 Test Item Value Reference Range Interpretation Comments PROTIME (BEAKER) (test code = 14.2 seconds 11.7-14.7 759) INR (BEAKER) (test code = 370) 1.1 <=5.9 RECOMMENDED COUMADIN/WARFARIN INR THERAPY RANGESSTANDARD DOSE: 2.0 - 3.0 Includes: PROPHYLAXIS forvenous thrombosis, systemic embolization; TREATMENT for venous thrombosis and/or pulmonary embolus.HIGH RISK: Target INR is 2.5-3.5 for patients with mechanical heart valves.CBC W/PLT COUNT & AUTO DIFFERENTIAL 2017-07-26 05:49:00 Test Item Value Reference Range Interpretation Comments WHITE BLOOD CELL COUNT (BEAKER) 10.6 K/ L 3.5-10.5 H (test code = 775) RED BLOOD CELL COUNT (BEAKER) 2.84 M/ L 3.93-5.22 L (test code = 761) HEMOGLOBIN (BEAKER) (test code = 9.6 GM/DL 11.2-15.7 L 410) HEMATOCRIT (BEAKER) (test code = 28.0 % 34.1-44.9 L 411) MEAN CORPUSCULAR VOLUME (BEAKER) 98.6 fL 79.4-94.8 H (test code = 753) MEAN CORPUSCULAR HEMOGLOBIN 33.8 pg 25.6-32.2 H (BEAKER) (test code = 751) MEAN CORPUSCULAR HEMOGLOBIN CONC 34.3 GM/DL 32.2-35.5 (BEAKER) (test code = 752) RED CELL DISTRIBUTION WIDTH 12.7 % 11.7-14.4 (BEAKER) (test code = 412) PLATELET COUNT (BEAKER) (test 393 K/CU MM 150-450 code = 756) MEAN PLATELET VOLUME (BEAKER) 9.9 fL 9.4-12.3 (test code = 754) NUCLEATED RED BLOOD CELLS 0 /100 WBC 0-0 (BEAKER) (test code = 413) NEUTROPHILS RELATIVE PERCENT 75 % (BEAKER) (test code = 429) LYMPHOCYTES RELATIVE PERCENT 13 % (BEAKER) (test code = 430) MONOCYTES RELATIVE PERCENT 9 % (BEAKER) (test code = 431) EOSINOPHILS RELATIVE PERCENT 3 % (BEAKER) (test code = 432) BASOPHILS RELATIVE PERCENT 0 % (BEAKER) (test code = 437) NEUTROPHILS ABSOLUTE COUNT 7.94 K/ L 1.56-6.13 H (BEAKER) (test code = 670) LYMPHOCYTES ABSOLUTE COUNT 1.32 K/ L 1.18-3.74 (BEAKER) (test code = 414) MONOCYTES ABSOLUTE COUNT (BEAKER) 0.98 K/ L 0.24-0.36 H (test code = 415) EOSINOPHILS ABSOLUTE COUNT 0.28 K/ L 0.04-0.36 (BEAKER) (test code = 416) BASOPHILS ABSOLUTE COUNT (BEAKER) 0.01 K/ L 0.01-0.08 (test code = 417) IMMATURE GRANULOCYTES-RELATIVE 1 % 0-1 PERCENT (BEAKER) (test code = 3323)
--- NOTE | 2021-03-11 13:04 | ER ---
Nurse's Notes [facility] Name: Mallory Nash Age: 60 yrs Sex: Female : 1960 Arrival Date: 03/11/2021 Time: 11:52 Bed Waiting Private MD: Diagnosis: Presentation: 03/11 12:32 Chief complaint: Patient states: Slipped on water 2 weeks ago and hurt left hip, jl7 reports pain to left hip, radiates to left ankle. Coronavirus screen: Client denies travel out of the [place] in the last 14 days. At this time, the client does not indicate any symptoms associated with coronavirus-19. Ebola Screen: No symptoms or risks identified at this time. Initial Sepsis Screen: Does the patient meet any 2 criteria? No. Patient's initial sepsis screen is negative. Does the patient have a suspected source of infection? No. Patient's initial sepsis screen is negative. Risk Assessment: Do you want to hurt yourself or someone else? Patient reports no desire to harm self or others. Onset of symptoms was March 01, 2021. 12:32 Method Of Arrival: Ambulatory jl7 12:32 Acuity: MAICO 4 jl7 Triage Assessment: 12:33 General: Appears in no apparent distress. uncomfortable, Behavior is calm, cooperative, jl7 appropriate for age. Pain: Complains of pain in left hip Pain radiates to left lateral ankle Pain currently is 10 out of 10 on a pain scale. Historical: - Allergies: 12:33 No Known Drug Allergies; jl7 - PMHx: 12:33 chronic back pain; COPD; Depression; Hypertension; jl7 - Immunization history:: Adult Immunizations up to date, Client reports receiving the 2nd dose of the Covid vaccine. - Social history:: Smoking status: Patient reports the use of cigarette tobacco products, smokes one pack cigarettes per day. Vital Signs: 12:32 BP 139 / 95; Pulse 92; Resp 19; Temp 98.2; Pulse Ox 94% ; Weight 54.43 kg; Height 5 ft. jl7 5 in. (165.10 cm); Pain 10/10; 12:32 Body Mass Index 19.97 (54.43 kg, 165.10 cm) jl7 ED Course: 11:52 Patient arrived in ED. am2 12:33 Triage completed. jl7 12:33 Arm band placed on right wrist. Patient placed in waiting room, Patient notified of jl7 wait time. Administered Medications: No medications were administered Outcome: 13:03 Patient left the ED. iw Signatures: Eugenie Quach RN RN Edward Allen RN RN jl7 Crystal Beltrán
[2021-03-11 13:08] VITALS: BP 139/95; TEMP 98.2; O2SAT 94
== END 2021-03-11 13:03 | disposition left against medical advice (07) ==
LOC: ER 11:42
DX: Z53.21 Procedure and treatment not carried out due to patient leaving prior to being seen by health care provider (principal)
CPT/HCPCS: 99281

== ENCOUNTER 2021-04-28 05:24 | Observation (INO) | payer BC ==
--- OUTSIDE RECORDS SUMMARY | 2021-04-28 05:28 | XMS REPORT | Continuity of Care Document ---
:1960 Author Organization [facility] t Address [address] [place] [address] Care Team Providers Name Role Phone Cierra Primary Care Physician FRANCA GRIMES Attending Clinician Unavailable FRANCA GRIMES Admitting Clinician Unavailable Problems Condition Condition Condition Status Onset Resolution Last Treating Co mments Source Name Details Category Date Date Treatment Clinician Date Acute Acute Disease Active 2016-[address] [facility] pulmonary pulmonary 09-26 [facility] - edema edema 00:00: Medical 00 [place] Atelectasi Atelectasi Disease Active 2016-[address] [facility] of both s of both 09-26 [facility] - lungs lungs 00:00: Medical 00 [place] S/P CABG x S/P CABG x Disease Active 2016-[address] [facility] 3 09-[facility] [place] Acute Acute Disease Active 2016-[address] [facility] pulmonary pulmonary 09-26 [facility] - insufficie insufficie 00:00: Nm dical ncy ncy 00 Center following following [...] Allergy 1-29 [facility]: Medical 00 [place] Medical Drug Active Itching 2016-[address] [facility], Allergy 09-26 allergic [facility] - Miscella 00:00: reaction Medica l neous 00 [place] Social History Social Habit Start Date Stop Date Quantity Comments Source Sex Assigned At [facility] Medications Ordered Filled Start Stop Current Ordering [...] 14:52: mouth Medic al tablet 06 daily. [place] folic acid 2016-08 Yes 1mg QD Take [address] [facility] [address] [facility] (FOLVITE) 1 2-04 by mouth [facility] s - MG tablet 14:52: daily. Medica l 06 [place] acetaminoph 2016-08 Yes 1{tbl} Take [address] [facility] en-codeine 2-04 tablet by madelin s - (TYLENOL 00:00: mouth Medical #3) 300-30 00 every 6 Center mg per (six) tablet hours as needed for Pain. Max Daily Amount: 4 tablets gabapentin 2016-08 Yes 400mg [id number] Take 0.[address] [facility] (NEURONTIN) 2-04 [id number] tablets [facility] - 800 MG 00:00: 3D [...] Description Test Time Test Comments Results Result [facility] e Comments RAD, CHEST, PA OR 2017-08-01 Reason for FINAL REPORT PATIENT AP, 1 VIEW 09:05:00 exam:->post-op ID: [id number] Chest one view. Clinical history: post-op Comparison: July 28, 2017 Discussion: A frontal chest is provided. Cardiomediastinal contours are unchanged. Right IJ line has been removed. There is patchy retrocardiac opacity is slightly improved since the previous exam. A small left effusion is present. No pneumothorax. Signed: Hemant Paige Verified Date/Time: 08/01/2017 09:05:03 Reading Location: [facility] Radiology Reading Room ESIUM 2017-08-01 06:58:00 Test Item Value Reference Range Interpretation Comme nts MAGNESIUM (BEAKER) (test code = 627) 1.8 mg/dL 1.6-2.6 CBC W/PLT COUNT & AUTO [id number] 05:44:00 Test Item Value Reference Range Interpretation [...] = 2801) CBC W/PLT COUNT & AUTO [id number] 07:13:00 Test Item Value Reference Range Interpretation [...] 0-1 PERCENT (BEAKER) (test code = 2801) [id number] 04:08:00 Test Item Value Reference Range Interpretation Comments MAGNESIUM (BEAKER) (test code = 1.3 mg/dL 1.6-2.6 L 627) BASIC METABOLIC [id number] 04:08:00 Test Item Value Reference Range Interpretation [...] NOT APPLICABLE FOR DIALYSIS PATIEN TS. POCT-GLUCOSE [id number] 12:53:00 Test Item Value Reference Range Interpretation Comments POC-GLUCOSE METER 192 mg/dL 70-110 H TESTED AT [facility] 6720 (BEAKER) (test code = KARINA Betts [facility] 1538) [address] POCT-GLUCOSE [id number] 07:54:00 Test Item Value Reference Range Interpretation Comments POC-GLUCOSE METER 129 mg/dL 70-110 H TESTED AT [facility] 6720 (BEAKER) (test code = [facility] 1538) [address] BASIC METABOLIC [id number] 05:37:00 Test Item Value Reference Range Interpretation [...] PATIEN TS. CBC W/PLT COUNT & AUTO [id number] 05:07:00 Test Item Value Reference Range Interpretation [...] PERCENT (BEAKER) (test code = 2806) POCT-GLUCOSE [id number] 21:03:00 Test Item Value Reference Range Interpretation Comments POC-GLUCOSE METER 239 mg/dL 70-110 H TESTED AT [facility] 6720 (BEAKER) (test code = KARINA [facility]BR[facility] 1538) [address] POCT-GLUCOSE [id number] 17:20:00 Test Item Value Reference Range Interpretation Comments POC-GLUCOSE METER 201 mg/dL 70-110 H TESTED AT [place] [address] ([facility]) (test code = KARINA Betts [facility] 1538) [address] HEMOGLOBIN AND [id number] 16:41:00 Test Item Value Reference Range Interpretation Comments HEMOGLOBIN (BEAKER) (test code = 9.8 GM/DL 11.2-15.7 L 410) HEMATOCRIT (BEAKER) (test code = 29.3 % 34.1-44.9 L 411) Draw after transfusion has been completed.POCT-GLUCOSE [id number] 12:59:00 Test Item Value Reference Range Interpretation Comments POC-GLUCOSE METER 133 mg/dL 70-110 H TESTED AT [place] [address] ([facility]) (test code = KARINA Betts [facility] 1538) [address] URINE [id number] 11:53:00 Test Item Value Reference Range Interpretation Comments CULTURE ([facility]) (test code = 1095) No growth POCT-GLUCOSE [id number] 09:34:00 Test Item Value Reference Range Interpretation Comments POC-GLUCOSE METER 97 mg/dL 70-110 TESTED AT [place] [address] ([facility]) (test code = KARINA Betts [facility] [address] 1538) CBC W/PLT COUNT & AUTO [id number] 05:55:00 Test Item Value Reference Range Interpretation [...] (BEAKER) (test code = 2801) BASIC METABOLIC [id number] 05:53:00 Test Item Value Reference Range Interpretation [...] NOT APPLICABLE FOR DIALYSIS PATIEN TS. POCT-GLUCOSE [id number] 21:23:00 Test Item Value Reference Range Interpretation Comments POC-GLUCOSE METER 142 mg/dL 70-110 H TESTED AT [place] [address] ([facility]) (test code = KARINA Betts [facility] 1538) [address] RAD, CHEST, 1 VIEW, NON [id number] 15:31:00Reason for exam:->post ct removalFINAL REPORT TECHNIQUE: [...] [place] Verified Date/Time: 07/28/2017 15:31:00 Reading Location: [facility] Radiology Reading Room POCT-GLUCOSE [id number] 12:12:00 Test Item Value Reference Range Interpretation Comments POC-GLUCOSE METER 100 mg/dL 70-110 TESTED AT [place] [address] ([facility]) (test code = KARINA Betts [facility] 1538) [address] POCT-GLUCOSE [id number] 06:41:00 Test Item Value Reference Range Interpretation Comments POC-GLUCOSE METER 143 mg/dL 70-110 H TESTED AT [place] [address] ([facility]) (test code = RADHAWY Roxane [facility] 1538) [address] RAD, CHEST, 1 VIEW, NON [id number] 05:13:00Reason for exam:->Post opShould this be performed [...] MDReport Verified Date/Time: 07/28/2017 05:13:19 Reading Location: [facility] C013Y CT Body Reading Room BLOOD GAS, [id number] 05:03:00 Test Item Value Reference Range Interpretation [...] (BEAKER) (test code = 1819) 36.0 % [id number] 04:52:00 Test Item Value Reference Range Interpretation [...] is 2.5-3.5 for patients with mechanical heart valves.[id number] 04:39:00 Test Item Value Reference Range Interpretation Comments MAGNESIUM (BEAKER) (test code = 1.9 mg/dL 1.6-2.6 627) BASIC METABOLIC [id number] 04:39:00 Test Item Value Reference Range Interpretation [...] PATIEN TS. CBC W/PLT COUNT & AUTO [id number] 04:24:00 Test Item Value Reference Range Interpretation [...] 0-1 PERCENT (BEAKER) (test code = 2801) [id number] 01:03:00 Test Item Value Reference Range Interpretation Comments POTASSIUM (BEAKER) (test code = 4.0 meq/L 3.5-5.1 379) [id number] 01:03:00 Test Item Value Reference Range Interpretation Comments MAGNESIUM (BEAKER) (test code = 2.0 mg/dL 1.6-2.6 627) POCT-GLUCOSE [id number] 01:01:00 Test Item Value Reference Range Interpretation Comments POC-GLUCOSE METER 150 mg/dL 70-110 H TESTED AT [facility] 6720 (BEAKER) (test code = KARINA Betts [place] [facility] 1538) [address] HEMOGLOBIN AND [id number] 00:51:00 Test Item Value Reference Range Interpretation Comments HEMOGLOBIN (BEAKER) (test code = 8.3 GM/DL 11.2-15.7 L 410) HEMATOCRIT (BEAKER) (test code = 24.0 % 34.1-44.9 L 411) CALCIUM, [id number] 00:48:00 Test Item Value Reference Range Interpretation Comments CALCIUM IONIZED (BEAKER) (test 1.25 mmol/L 1.12-1.27 code = 698) PH, BLOOD (BEAKER) (test code = 7.39 1810) BLOOD GAS, [id number] 20:03:00 Test Item Value Reference Range Interpretation [...] (test code = 1819) 32.0 % POCT-GLUCOSE [id number] 18:26:00 Test Item Value Reference Range Interpretation Comments POC-GLUCOSE METER 169 mg/dL 70-110 H TESTED AT [facility] 6720 (BEAKER) (test code = [place] 1538) [address] BLOOD GAS, [id number] 16:32:00 Test Item Value Reference Range Interpretation [...] code = 1819) 40.0 % HEMOGLOBIN AND [id number] 15:45:00 Test Item Value Reference Range Interpretation Comments HEMOGLOBIN (BEAKER) (test code = 8.9 GM/DL 11.2-15.7 L 410) HEMATOCRIT (BEAKER) (test code = 25.6 % 34.1-44.9 L 411) FACTOR 10 [id number] 15:30:00 Test Item Value Reference Range Interpretation Comments FACTOR X ACTIVITY (BEAKER) (test code 79.0 % 70.0-120.0 = 662) [id number] 13:47:00 Test Item Value Reference Range Interpretation Comments FIBRINOGEN LEVEL (BEAKER) (test 567 mg/dl 225-434 H code = 658) PROTHROMBIN [id number] 13:47:00 Test Item Value Reference Range Interpretation Comments PROTIME (BEAKER) (test code = 17.5 seconds 11.7-14.7 H 759) INR (BEAKER) (test code = 370) 1.4 <=5.9 RECOMMENDED COUMADIN/WARFARIN INR THERAPY RANGESSTANDARD DOSE: 2.0 - 3.0 Includes: PROPHYLAXIS forvenous thrombosis, systemic embolization; TREATMENT for venous thrombosis and/or pulmonary embolus.HIGH RISK: Target INR is 2.5-3.5 for patients with mechanical heart valves.[id number] 13:47:00 Test Item Value Reference Range Interpretation Comments PARTIAL THROMBOPLASTIN TIME 35.0 seconds 22.5-36.0 (BEAKER) (test code = 760) RAD, CHEST, 1 VIEW, NON [id number] 13:16:00Reason for exam:->Post OpShould this be performed [...] MDReport Verified Date/Time: 07/27/2017 13:16:03 Reading Location: [facility] B1 C013W Consult Reading Room Electronicallysigned by: [...] = 1414) CBC W/PLT COUNT & AUTO [id number] 12:37:00 Test Item Value Reference Range Interpretation [...] 0-1 PERCENT (BEAKER) (test code = 2801) [id number] 12:19:00 Test Item Value Reference Range Interpretation Comments MAGNESIUM (BEAKER) (test code = 2.9 mg/dL 1.6-2.6 H 627) COMPREHENSIVE METABOLIC [id number] 12:19:00 Test Item Value Reference Range Interpretation [...] DIALYSIS PATIEN TS. LACTIC ACID, ARTERIAL, WHOLE [id number] 12:14:00 Test Item Value Reference Range Interpretation Comments LACTATE BLOOD ARTERIAL (2) 0.9 mmol/L 0.5-2.2 (BEAKER) (test code = 2874) Effective 12/31/2015: Units/Reference Range ChangeNew: 0.5-2.2 mmol/L Previous: 5-20 mg/dLOXYGEN SATURATION, [id number] 11:46:00 Test Item Value Reference Range Interpretation Comments O2 SATURATION (MEASURED) (BEAKER) 81.7 % (test code = 1455) BLOOD GAS, [id number] 11:44:00 Test Item Value Reference Range Interpretation [...] code = 1819) 60.0 % SODIUM NA-STAT [id number] 11:44:00 Test Item Value Reference Range Interpretation Comments SODIUM (BEAKER) (test code = 381) 130 meq/L 135-148 L GLUCOSE-STAT [id number] 11:44:00 Test Item Value Reference Range Interpretation Comments GLUCOSE RANDOM (BEAKER) (test code 194 mg/dL 70-110 H = 652) HGB/HCT (H&H) - STAT [id number] 11:44:00 Test Item Value Reference Range Interpretation Comments HEMOGLOBIN (BEAKER) (test code = 8.1 g/dL 12.0-15.0 L 410) HEMATOCRIT (BEAKER) (test code = 24.0 % 36.0-45.0 L 411) FILTER IONIZED [id number] 11:44:00 Test Item Value Reference Range Interpretation Comments FILTER IONIZED CALCIUM (BEAKER) 1.35 nnol/L (test code = 1854) Reference Range: No NormalsPOTASSIUM-STAT [id number] 11:43:00 Test Item Value Reference Range Interpretation [...] MM 55.0-65.0 (test code = 1413) PLATELET [id number] 11:08:00 Test Item Value Reference Range Interpretation Comments PLATELET COUNT (BEAKER) (test 142 K/CU MM 150-450 L code = 756) CALCIUM, [id number] 10:35:00 Test Item Value Reference Range Interpretation Comments CALCIUM IONIZED (BEAKER) (test 0.91 mmol/L 1.12-1.27 L code = 698) PH, BLOOD (BEAKER) (test code = 7.31 1810) BLOOD GAS, [id number] 10:35:00 Test Item Value Reference Range Interpretation [...] code = 1819) 100.0 % SODIUM NA-STAT [id number] 10:35:00 Test Item Value Reference Range Interpretation Comments SODIUM (BEAKER) (test code = 381) 130 meq/L 135-148 L GLUCOSE-STAT [id number] 10:35:00 Test Item Value Reference Range Interpretation Comments GLUCOSE RANDOM (BEAKER) (test code 194 mg/dL 70-110 H = 652) HGB/HCT (H&H) - STAT [id number] 10:35:00 Test Item Value Reference Range Interpretation Comments HEMOGLOBIN (BEAKER) (test code = 10.3 g/dL 12.0-15.0 L 410) HEMATOCRIT ([facility]) (test code = 30.0 % 36.0-45.0 L 411) POTASSIUM-STAT [id number] 10:34:00 Test Item Value Reference Range Interpretation Comments POTASSIUM ([facility]) (test code = 5.1 meq/L 3.6-5.5 379) [id number] 10:26:00 Test Item Value Reference Range Interpretation Comments ACTIVATED CLOTTING TIME 131 sec TEST ED AT [place] [address] ([facility]) (test code = KARINA Betts [place] [address]) [address] [id number] 10:26:00 Test Item Value Reference Range Interpretation Comments ACTIVATED CLOTTING TIME 521 sec TEST ED AT [place] [address] ([facility]) (test code = KARINA Betts [place] [address]) [address] [id number] 10:26:00 Test Item Value Reference Range Interpretation Comments ACTIVATED CLOTTING TIME 521 sec TEST ED AT [place] [address] ([facility]) (test code = KARINA Betts [place] [address]) [address] [id number] 10:26:00 Test Item Value Reference Range Interpretation Comments ACTIVATED CLOTTING TIME 505 sec TEST ED AT [place] [address] ([facility]) (test code = KARINA Betts [place] [address]) [address] [id number] 10:17:00 Test Item Value Reference Range Interpretation Comments FIBRINOGEN LEVEL ([facility]) (test 536 mg/dl 225-434 H code = 658) [id number] 10:17:00 Test Item Value Reference Range Interpretation Comments PARTIAL THROMBOPLASTIN TIME 38.7 seconds 22.5-36.0 H ([facility]) (test code = 760) PROTHROMBIN [id number] 10:16:00 Test Item Value Reference Range Interpretation Comments PROTIME ([facility]) (test code = 18.8 seconds 11.7-14.7 H 759) INR ([facility]) (test code = 370) 1.6 <=5.9 RECOMMENDED [...] platelet dysfunction (BEAKER) (test code = 2173) [id number] Yuri Quijano M.D. (BEAKER) (test code = (electonic signature) 3890) PLATELET COUNT AGG 410 K/CU MM 150-450 (BEAKER) (test code = 4696) for patients on clopidogrel in past two weeksCALCIUM, [id number] 09:46:00 Test Item Value Reference Range Interpretation Comments CALCIUM IONIZED (BEAKER) (test 1.41 mmol/L 1.12-1.27 H code = 698) PH, BLOOD (BEAKER) (test code = 7.30 1810) BLOOD GAS, [id number] 09:45:00 Test Item Value Reference Range Interpretation [...] code = 1819) 100.0 % SODIUM NA-STAT [id number] 09:45:00 Test Item Value Reference Range Interpretation Comments SODIUM (BEAKER) (test code = 381) 124 meq/L 135-148 L POTASSIUM-STAT [id number] 09:45:00 Test Item Value Reference Range Interpretation Comments POTASSIUM (BEAKER) (test code = 5.8 meq/L 3.6-5.5 H 379) GLUCOSE-STAT [id number] 09:45:00 Test Item Value Reference Range Interpretation Comments GLUCOSE RANDOM (BEAKER) (test code 172 mg/dL 70-110 H = 652) HGB/HCT (H&H) - STAT [id number] 09:45:00 Test Item Value Reference Range Interpretation Comments HEMOGLOBIN (BEAKER) (test code = 8.6 g/dL 12.0-15.0 L 410) HEMATOCRIT (BEAKER) (test code = 25.0 % 36.0-45.0 L 411) BLOOD GAS, [id number] 09:31:00 Test Item Value Reference Range Interpretation [...] code = 1819) 75.0 % SODIUM NA-STAT [id number] 09:31:00 Test Item Value Reference Range Interpretation Comments SODIUM (BEAKER) (test code = 381) 124 meq/L 135-148 L GLUCOSE-STAT [id number] 09:31:00 Test Item Value Reference Range Interpretation Comments GLUCOSE RANDOM (BEAKER) (test code 162 mg/dL 70-110 H = 652) HGB/HCT (H&H) - STAT [id number] 09:31:00 Test Item Value Reference Range Interpretation Comments HEMOGLOBIN (BEAKER) (test code = 8.8 g/dL 12.0-15.0 L 410) HEMATOCRIT (BEAKER) (test code = 26.0 % 36.0-45.0 L 411) POTASSIUM-STAT [id number] 09:31:00 Test Item Value Reference Range Interpretation Comments POTASSIUM (BEAKER) (test code = 6.2 meq/L 3.6-5.5 HH 379) BLOOD GAS, [id number] 09:09:00 Test Item Value Reference Range Interpretation [...] (test code = 1819) 70.0 % GLUCOSE-STAT [id number] 09:09:00 Test Item Value Reference Range Interpretation Comments GLUCOSE RANDOM (BEAKER) (test code 150 mg/dL 70-110 H = 652) POTASSIUM-STAT [id number] 09:08:00 Test Item Value Reference Range Interpretation Comments POTASSIUM (BEAKER) (test code = 5.5 meq/L 3.6-5.5 379) HGB/HCT (H&H) - STAT [id number] 09:08:00 Test Item Value Reference Range Interpretation Comments HEMOGLOBIN (BEAKER) (test code = 7.6 g/dL 12.0-15.0 L 410) HEMATOCRIT (BEAKER) (test code = 22.0 % 36.0-45.0 L 411) SODIUM NA-STAT [id number] 09:08:00 Test Item Value Reference Range Interpretation Comments SODIUM (BEAKER) (test code = 381) 124 meq/L 135-148 L POTASSIUM-STAT [id number] 08:00:00 Test Item Value Reference Range Interpretation Comments POTASSIUM (BEAKER) (test code = 3.8 meq/L 3.6-5.5 379) CALCIUM, [id number] 08:00:00 Test Item Value Reference Range Interpretation Comments CALCIUM IONIZED (BEAKER) (test 1.15 mmol/L 1.12-1.27 code = 698) PH, BLOOD (BEAKER) (test code = 7.38 1810) BLOOD GAS, [id number] 08:00:00 Test Item Value Reference Range Interpretation [...] code = 1819) 100.0 % SODIUM NA-STAT [id number] 08:00:00 Test Item Value Reference Range Interpretation Comments SODIUM (BEAKER) (test code = 381) 130 meq/L 135-148 L GLUCOSE-STAT [id number] 08:00:00 Test Item Value Reference Range Interpretation Comments GLUCOSE RANDOM (BEAKER) (test code 134 mg/dL 70-110 H = 652) HGB/HCT (H&H) - STAT [id number] 08:00:00 Test Item Value Reference Range Interpretation Comments HEMOGLOBIN (BEAKER) (test code = 10.4 g/dL 12.0-15.0 L 410) HEMATOCRIT (BEAKER) (test code = 31.0 % 36.0-45.0 L 411) RAD, CHEST, 1 VIEW, NON [id number] 07:24:00Reason for exam:->pre opShould this be performed [...] signed by: HEMANT PAIGE M.D. on 07:24 AMPT/[id number] 04:33:00 Test Item Value Reference Range Interpretation [...] 2.5-3.5 for patients with mechanical heart valves.PROTHROMBIN [id number] 04:32:00 Test Item Value Reference Range Interpretation [...] 0-0 (BEAKER) (test code = 413) HEMOGLOBIN [id number] 20:12:00 Test Item Value Reference Range Interpretation Comments HEMOGLOBIN A1C (BEAKER) (test code = 6.6 % 4.3-6.1 H 368) PLATELET AGGREGATION: FUNCTION [id number] 18:20:00 Test Item Value Reference Range Interpretation Comments WEAK ADP 43 % 60-91 L RESULT(BEAKER) (test code = 2135) PLATELET FUNCTION 40-49% indicates SCREEN INTERP moderate platelet (BEAKER) (test code = dysfunction 2173) [id number] Yuri Quijano M.D. (BEAKER) (test code = (electonic signature) 4549) PLATELET COUNT AGG 417 K/CU MM 150-450 (BEAKER) (test code = 7746) for patients on clopidogrel in past two weeksLIPID [id number] 13:14:00 Test Item Value Reference Range Interpretation [...] 130-159 High 160-189 Very High >=190BASIC METABOLIC [id number] 09:12:00 Test Item Value Reference Range Interpretation [...] APPLICABLE FOR DIALYSIS PATIEN TS. HEPATIC FUNCTION [id number] 09:12:00 Test Item Value Reference Range Interpretation [...] slightly (test code = 347) hemolyzed PROTHROMBIN [id number] 05:58:00 Test Item Value Reference Range Interpretation [...] % 0-1 PERCENT (BEAKER) (test code = 1240)
[2021-04-28 05:56] LABS: Absolute Lymphocytes (CBC) 1.8 K/uL (0.7-4.9); Hematocrit 38.2 % (36.0-45.0); Lymphocytes % 20.6 % (15.3-44.8); MPV 7.8 fL (7.6-11.3); RBC Red Blood Cell Count 3.95 M/uL (3.86-4.86)
[2021-04-28] MEDS ORDERED: LORazepam 2 MG/ML VIAL ONE (06:06)
[2021-04-28] MEDS ORDERED: ASPIRIN 81 MG CHEWABLE TABLET ONE (06:06)
[2021-04-28 06:08] LABS: Protime INR 0.94
[2021-04-28 06:14] LABS: ALT/SGPT 19 U/L (12-78); AST/SGOT 15 U/L (15-37); Albumin 4.2 g/dL (3.4-5.0); Alkaline Phosphatase 96 U/L (45-117); BUN Blood Urea Nitrogen 26 mg/dL (7-18); Bicarbonate 21 mmol/L (21-32); Bilirubin Direct 0.1 mg/dL (0-0.2); Bilirubin Total 0.6 mg/dL (0.2-1.0); Glucose Level 137 mg/dL (74-106); Potassium 4.3 mmol/L (3.5-5.1); Protein, Total 8.2 g/dL (6.4-8.2); Sodium Level 129 mmol/L (136-145)
[2021-04-28 06:15] LABS: Magnesium 1.9 mg/dL (1.8-2.4); NT PRO-BNP 353 pg/mL (<125); Troponin (Emerg Dept Use Only) < 0.02 ng/mL (0.0-0.045)
[2021-04-28] MEDS ORDERED: METHYLPREDNISOLONE 125 MG INJ ONE (06:23)
[2021-04-28] MEDS ORDERED: ALBUTEROL 2.5 MG/3 ML NEB SOL ONE (06:23)
[2021-04-28] MEDS ORDERED: IPRATROPIUM BROM 0.5MG/2.5ML ONE (06:24)
[2021-04-28] MEDS ORDERED: AZITHROMYCIN 500 MG INJ IVPB ONE (06:24)
[2021-04-28] MEDS ORDERED: NA CHLORIDE 0.9% 250 ML ONE (06:24)
--- NOTE | 2021-04-28 07:06 | ER ---
Nurse's Notes [facility] Name: Mallory Nash Age: 60 yrs Sex: Female : 1960 Arrival Date: 04/28/2021 Time: 05:25 Bed 6 Private MD: Diagnosis: Chest pain, unspecified Presentation: 04/28 05:36 Chief complaint: Patient states: chest pain that started on Tuesday but has become em worse, also reports nausea and shortness of breath, hx of a bypass. Coronavirus screen: Vaccine status: Patient reports receiving the 2nd dose of the covid vaccine. Ebola Screen: Patient negative for fever greater than or equal to 101.5 degrees Fahrenheit, and additional compatible Ebola Virus Disease symptoms Patient denies exposure to infectious person. Patient denies travel to an Ebola-affected area in the 21 days before illness onset. No symptoms or risks identified at this time. Initial Sepsis Screen: Does the patient meet any 2 criteria? No. Patient's initial sepsis screen is negative. Does the patient have a suspected source of infection? No. Patient's initial sepsis screen is negative. Risk Assessment: Do you want to hurt yourself or someone else? Patient reports no desire to harm self or others. Onset of symptoms was April 28, 2021. 05:36 Method Of Arrival: Ambulatory em 05:36 Acuity: MAICO 3 em Historical: - Allergies: 05:37 No Known Allergies; em - PMHx: 05:37 chronic back pain; COPD; Depression; Hypertension; em - PSHx: 05:37 Coronary artery bypass graft; Appendectomy; em - Immunization history:: Client reports receiving the 2nd dose of the Covid vaccine. - Social history:: Patient/guardian denies using alcohol, street drugs, The patient lives with family, Smoking status: Patient reports the use of cigarette tobacco products, smokes one-half pack cigarettes per day. - Family history:: not pertinent. Screenin:10 Abuse screen: Denies threats or abuse. Nutritional screening: No deficits noted. ea Tuberculosis screening: No symptoms or risk factors identified. Fall Risk None identified. Assessment: 05:50 General: Appears uncomfortable, Behavior is anxious, restless. Pain: Complains of pain ea in chest. Neuro: Level of Consciousness is awake, alert, obeys commands, Oriented to person, place, time. Cardiovascular: Patient's skin is warm and dry. Respiratory: Airway is patent Respiratory effort is even, unlabored, Respiratory pattern is regular, symmetrical. Derm: Skin is pink, warm \T\ dry. Vital Signs: 05:36 BP 147 / 81; Pulse 85; Resp 30 S; Temp 97.5; Pulse Ox 100% on R/A; Weight 54.43 kg; em Height 5 ft. 5 in. (165.10 cm); Pain 8/10; 05:36 Body Mass Index 19.97 (54.43 kg, 165.10 cm) em ED Course: 05:25 Patient arrived in ED. bp1 05:26 Cristina Reid MD is Attending Physician. ma2 05:37 Triage completed. em 05:37 Arm band placed on. em 05:40 Inserted saline lock: 18 gauge in right antecubital area, using aseptic technique. ds4 Blood collected. 06:10 Patient has correct armband on for positive identification. Bed in low position. Call ea light in reach. Side rails up X2. 07:05 Chino Rose DO is Hospitalizing Provider. ma2 07:11 XRAY Chest (1 view) In Process Unspecified. EDMS 07:23 Vida Liu, NAIN is Primary Nurse. tr6 Administered Medications: 05:47 Drug: Ativan (LORazepam) 1 mg Route: IVP; Site: right antecubital; ea 05:47 Drug: Aspirin Chewable Tablet 324 mg Route: PO; ea 06:09 Drug: Albuterol - atroVENT (ipratropium) (3:1) (2.5 mg - 0.5 mg) 3 ml Route: Nebulizer; ea 06:09 Drug: MethylPrednisoLONE 125 mg Route: IVP; Site: right antecubital; ea 06:09 Drug: AZITHromycin 500 mg Route: IVPB; Infused Over: 1 hrs; Site: right antecubital; ea Outcome: 07:05 Decision to Hospitalize by Provider. ma2 18:31 Discharged to home ambulatory, with family, PT REFUSED WHEELCHAIR AT THIS TIME tr6 18:31 Condition: stable 18:31 Discharge instructions given to patient, Instructed on discharge instructions, follow up and referral plans. no drinking with medication, medication usage, safety practices, Demonstrated understanding of instructions, follow-up care, medications, Prescriptions given X 18:31 Patient left the ED. tr6 Signatures: Dispatcher [employer] Rudolph Lara, RN RN James Vasquez 4 Krupa Mathew RN RN Cristina Marshall MD MD ma2 Lulu Burgos Tiffany, RN RN tr6 Corrections: (The following items were deleted from the chart) 05:38 05:36 BP 147 / 81; Pulse 85bpm; Resp 18bpm; Pulse Ox 100% RA; Temp 97.5F; 54.43 kg; em Height 5 ft. 5 in.; BMI: 19.9; Pain 8/10; em
--- NOTE | 2021-04-28 07:06 | EDPHYS ---
Physician Documentation [facility] Name: Mallory Nash Age: 60 yrs Sex: Female : 1960 Arrival Date: 04/28/2021 Time: 05:25 Bed 6 Private MD: ED Physician Cristina Reid HPI: 04/28 05:37 This 60 yrs old Female presents to ER via Ambulatory with complaints of ma2 Shortness Of Breath, Chest Pain. 05:37 The patient has shortness of breath with light activity. Onset: The symptoms/episode ma2 began/occurred gradually, 1 day(s) ago. Associated signs and symptoms: Pertinent positives: chest pain, Pertinent negatives: diaphoresis, fever, loss of consciousness, nausea. Severity of symptoms: At their worst the symptoms were moderate in the emergency department the symptoms are unchanged. The patient has experienced a previous episode. Historical: - Allergies: 05:37 No Known Allergies; em - PMHx: 05:37 chronic back pain; COPD; Depression; Hypertension; em - PSHx: 05:37 Coronary artery bypass graft; Appendectomy; em - Immunization history:: Client reports receiving the 2nd dose of the Covid vaccine. - Social history:: Patient/guardian denies using alcohol, street drugs, The patient lives with family, Smoking status: Patient reports the use of cigarette tobacco products, smokes one-half pack cigarettes per day. - Family history:: not pertinent. ROS: 05:37 Constitutional: Negative for fever, chills, and weight loss. ma2 05:37 All other systems are negative. Exam: 05:37 Constitutional: This is a well developed, well nourished patient who is awake, alert, ma2 and in no acute distress. Head/Face: Normocephalic, atraumatic. Eyes: Pupils equal round and reactive to light, extra-ocular motions intact. Lids and lashes normal. Conjunctiva and sclera are non-icteric and not injected. Cornea within normal limits. Periorbital areas with no swelling, redness, or edema. ENT: Nares patent. No nasal discharge, no septal abnormalities noted. Tympanic membranes are normal and external auditory canals are clear. Oropharynx with no redness, swelling, or masses, exudates, or evidence of obstruction, uvula midline. Mucous membranes moist. Neck: Trachea midline, no thyromegaly or masses palpated, and no cervical lymphadenopathy. Supple, full range of motion without nuchal rigidity, or vertebral point tenderness. No Meningismus. Chest/axilla: Normal chest wall appearance and motion. Nontender with no deformity. No lesions are appreciated. Cardiovascular: Regular rate and rhythm with a normal S1 and S2. No gallops, murmurs, or rubs. Normal PMI, no JVD. No pulse deficits. Respiratory: Lungs have equal breath sounds bilaterally, clear to auscultation and percussion. No rales, rhonchi or wheezes noted. No increased work of breathing, no retractions or nasal flaring. Abdomen/GI: Soft, non-tender, with normal bowel sounds. No distension or tympany. No guarding or rebound. No evidence of tenderness throughout. Skin: Warm, dry with normal turgor. Normal color with no rashes, no lesions, and no evidence of cellulitis. MS/ Extremity: Pulses equal, no cyanosis. Neurovascular intact. Full, normal range of motion. Neuro: Awake and alert, GCS 15, oriented to person, place, time, and situation. Cranial nerves II-XII grossly intact. Motor strength 5/5 in all extremities. Sensory grossly intact. Cerebellar exam normal. Normal gait. Vital Signs: 05:36 BP 147 / 81; Pulse 85; Resp 30 S; Temp 97.5; Pulse Ox 100% on R/A; Weight 54.43 kg; em Height 5 ft. 5 in. (165.10 cm); Pain 8/10; 05:36 Body Mass Index 19.97 (54.43 kg, 165.10 cm) em MDM: 05:26 Patient medically screened. ma2 05:37 Differential diagnosis: Anemia Anxiety Reaction asthma, reactive airway disease. ma2 05:38 Data reviewed: vital signs, nurses notes. 04/28 05:37 Order name: Basic Metabolic Panel 04/28 05:37 Order name: CBC with Diff; Complete Time: 06:39 04/28 05:37 Order name: LFT's; Complete Time: 06:39 04/28 05:37 Order name: Magnesium; Complete Time: 06:39 04/28 05:37 Order name: NT PRO-BNP; Complete Time: 06:39 04/28 05:37 Order name: PT-INR; Complete Time: 06:39 ma2 04/28 05:37 Order name: Troponin (emerg Dept Use Only); Complete Time: 06:39 ma2 04/28 05:37 Order name: Basic Metabolic Panel; Complete Time: 06:39 EDMS 04/28 07:27 Order name: SARS-COV-2 RT PCR EDMS 04/28 07:56 Order name: C-Reactive Protein EDMS 04/28 07:57 Order name: Ferritin EDMS 04/28 07:57 Order name: T4 Free EDMS 04/28 07:57 Order name: Thyroid Stimulating Hormone EDMS 04/28 05:37 Order name: XRAY Chest (1 view) ut2 04/28 05:37 Order name: EKG; Complete Time: 05:38 ma2 04/28 05:37 Order name: Cardiac monitoring; Complete Time: 05:45 ma2 04/28 05:37 Order name: EKG - Nurse/Tech; Complete Time: 05:45 ma2 04/28 07:57 Order name: Echo with Doppler [facility] 04/28 15:54 Order name: NM [facility] 04/28 17:10 Order name: Creatine Phosphokinase [facility] 04/28 17:10 Order name: CKMB Creatine Kinase MB [facility] 04/28 17:10 Order name: Troponin I [facility] 04/28 17:10 Order name: Lipid Profile [facility] 04/28 17:14 Order name: Basic Metabolic Panel [facility] 04/28 05:37 Order name: IV Saline Lock; Complete Time: 05:45 ma2 04/28 05:37 Order name: Labs collected and sent; Complete Time: 05:45 ma2 04/28 05:37 Order name: O2 Per Protocol; Complete Time: 05:45 ma2 04/28 05:37 Order name: O2 Sat Monitoring; Complete Time: 05:45 ma2 Administered Medications: 05:47 Drug: Ativan (LORazepam) 1 mg Route: IVP; Site: right antecubital; ea 05:47 Drug: Aspirin Chewable Tablet 324 mg Route: PO; ea 06:09 Drug: Albuterol - atroVENT (ipratropium) (3:1) (2.5 mg - 0.5 mg) 3 ml Route: Nebulizer; ea 06:09 Drug: MethylPrednisoLONE 125 mg Route: IVP; Site: right antecubital; ea 06:09 Drug: AZITHromycin 500 mg Route: IVPB; Infused Over: 1 hrs; Site: right antecubital; ea Disposition: 05:37 Critical Care:. ma2 Disposition Summary: 04/28/21 07:05 Hospitalization Ordered Hospitalization Status: Observation ma2 Provider: Chino Rose ma2 Location: Telemetry/MedSur (observation) ma2 Condition: Stable ma2 Problem: new ma2 Symptoms: are unchanged ma2 Bed/Room Type: Standard [facility] Room Assignment: ma2 Diagnosis - Chest pain, unspecified ma2 Discharge Instructions: - Discharge Summary Sheet ma2 Forms: - Medication Reconciliation Form ma2 - SBAR form ma2 Prescriptions: - Zithromax Z-Marcus 250 mg Oral Tablet - take 1 tablet by ORAL route as directed for 5 days Day 1 - take two (2) tablets ma2 one time. Day 2, 3, 4 , 5 take one (1) tablet once daily.; 6 tablet; Refills: 0, Product Selection Permitted - Medrol (Marcus) 4 mg Oral Tablets, Dose Pack - take 1 tablet by ORAL route as directed - follow package instructions; 1 ma2 packet; Refills: 0, Product Selection Permitted Critical care time excluding procedures: 05:37 Critical care time: Bedside Care: 25 minutes, Consultation: 5 minutes, Family ma2 Intervention: 5 minutes. Total time: 35 minutes Signatures: Dispatcher [employer] Rudolph Lara RN RN em Antunez, Elena, RN RN ea Alzahri, Mohammad, MD MD ut2 Corrections: (The following items were deleted from the chart) 05:56 05:38 CORONAVIRUS+MR.LAB.BRZ ordered. EDMS SHANTELLEMS
--- NOTE | 2021-04-28 07:52 | P.HP ---
Certification for Inpatient Patient admitted to: Observation With expected LOS: <2 Midnights Patient will require the following post-hospital care: None Practitioner: I am a practitioner with admitting privileges, knowledge of patient current condition, hospital course, and medical plan of care. Services: Services provided to patient in accordance with Admission requirements found in Title 42 Section 412.3 of the Code of Federal Regulations Patient History Date of Service: 04/28/21 Primary Care Provider: Dr. Morillo Reason for admission: Chest pain and Shortness of breath History of Present Illness: 60 yo CF presented with chest pain and shortness of breath. She was diagnosed with COVID in the middle of the month. She has noted some chest pain to the substernal region. Some SOB is noted. No radiation of pain noted. No palpitations. She has history of CAD and CABG in 2017. She has not followed up with Cardiology since that time. She has HTN, COPD and Smokes tobacco. She was seen in the ER. She was positive for COVID. Trop is negative. Patient admitted for observation. Cardiology consulted. Allergies No Known Drug Allergies Allergy (Verified 07/21/17 02:48) none Unable to Acquire Allergy (Uncoded 07/19/17 11:16) Unknown Home medications list reviewed: Yes Home Medications: Aspirin [Adult Aspirin] 81 mg PO DAILY 10/06/18 Gabapentin [Neurontin] 800 mg PO QID 10/06/18 Amlodipine [Norvasc*] 5 mg PO DAILY #30 tab 10/09/18 Cyanocobalamin [Vitamin B-12*] 1,000 mcg PO DAILY #30 tab 10/09/18 Fluticasone/Salmeterol [Advair Hfa 230-21 Mcg Inhaler] 8 gm IH DAILY #1 aer.w.adap 10/09/18 Metformin HCl 1,000 mg PO BID #60 tablet 10/09/18 Metoprolol Tartrate [Lopressor*] 25 mg PO BID #60 tab 10/09/18 levoFLOXacin [Levaquin*] 750 mg PO DAILY #7 tab 10/09/18 predniSONE [Prednisone*] 20 mg PO BID #14 tab 10/09/18 - Past Medical/Surgical History Diabetic: No -: Depression -: HTN -: Chronic back pain -: Neuropathy -: CAD -: CABG 2017 3 vessel -: Tobacco -: COPD -: appendectomy -: CABG x 3 Psychosocial/ Personal History: Single - Family History Mother -: Heart disease, Diabetes - Social History Smoking Status: Heavy Tobacco smoker (>10 cigarettes/day) Counseled patient to stop smoking for: less than 10 minutes Smoking therapy provided: Yes Patient receptive to therapy: Yes Alcohol use: No CD- Drugs: No Caffeine use: Yes Place of Residence: Home Review of Systems General: As per HPI Eyes: Unremarkable Respiratory: Shortness of Breath, As per HPI Cardiovascular: Chest Pain, As per HPI Gastrointestinal: Unremarkable Genitourinary: Unremarkable Musculoskeletal: Unremarkable Integumentary: Unremarkable Neurological: Unremarkable Lymphatics: Unremarkable Physical Examination - Physical Exam General: Alert, In no apparent distress, Oriented x3, Cooperative HEENT: Atraumatic, Normocephalic, PERRLA, Mucous membr. moist/pink Neck: Supple Respiratory: Clear to auscultation bilaterally, Normal air movement Cardiovascular: Normal pulses, Regular rate/rhythm Gastrointestinal: Normal bowel sounds, No tenderness, No masses, No rebound, No guarding Musculoskeletal: No erythema, No tenderness, No warmth Integumentary: No tenderness/swelling Neurological: Normal speech, Normal strength at 5/5 x4 extr, Normal tone, Normal affect - Studies Laboratory Data (last 24 hrs) 04/28/21 05:41: PT 10.8, INR 0.94 04/28/21 05:41: WBC 8.80, Hgb 13.3, Hct 38.2, Plt Count 294 04/28/21 05:41: Sodium 129 L, Potassium 4.3, BUN 26 H, Creatinine 1.66 H, Glucose 137 H, Magnesium 1.9, Total Bilirubin 0.6, AST 15, ALT 19, Alkaline Phosphatase 96 Assessment and Plan - Plan COVID: positive CXR: pending Impression: Chest pain with history of CAD, CABG times 3 vessel in 2017 HTN COVID Positive Acute Renal insufficiency/Hyponatremia likely dehydration COPD Tobacco abuse Depression with anxiety Chronic pain Plan: Patient will be admitted for further evaluation. Monitor Trop. Will order ECHO and Cardiac stress test to evaluate. Consult Cardiology to address. Await recommendations. Will start COVID treatment to include Solumedrol, vitamins. Will continue to monitor. Patient on RA. Restart Metoprolol Norvasc. Check Lipids and TSH. Will start Lipitor, ASA and Heparin for DVT prophylaxis. Will give Fluid bolus due to acute renal insufficiency. Start gabapentin for pain. Likely home later today if workup unremarkable. Will monitor. DVT prophylaxis: Heparin Code Status: Full code Advanced Care Planning: Home at Discharge. Discharge Plan: Home Plan to discharge in: 24 Hours - Advance Directives Does patient have a Living Will: No Does patient have a Durable POA for Healthcare: No - Code Status/Comfort Care Code Status Assessed: Yes (Full code) Time Spent Managing Pts Care (In Minutes): 55
[2021-04-28 08:44] LABS: C-Reactive Protein 9.84 mg/L (<3.00); Ferritin 291.9 ng/mL (8-388)
[2021-04-28] MEDS ORDERED: REGADENOSON 0.4 MG/5 ML SYR IV ONE (08:48)
--- NOTE | 2021-04-28 09:28 | RAD REPORT ---
EXAM DESCRIPTION: Joey Single View04/28/2021 7:11 am CLINICAL HISTORY: Congestion COMPARISON: 2019 FINDINGS: Left upper lobe opacity. Postsurgical changes involve the chest Right lung appears clear of acute infiltrate. Heart is normal size IMPRESSION: Left upper lobe opacity may represent pneumonia. It is recommended that this be followed until it is clear to help exclude an underlying mass
[2021-04-28] MEDS ORDERED: ALBUTEROL 2.5 MG/3 ML NEB SOL NEB PRN (09:37)
[2021-04-28] MEDS ORDERED: FAMOTIDINE 20 MG TAB PO SCH (09:37)
[2021-04-28] MEDS ORDERED: GABAPENTIN 100 MG CAP PO PRN (09:37)
[2021-04-28] MEDS ORDERED: BUDESONIDE 0.25 MG/2 ML NEB NEB SCH (09:37)
[2021-04-28] MEDS ORDERED: IPRATROPIUM BROM 0.5MG/2.5ML NEB PRN (09:37)
[2021-04-28] MEDS ORDERED: ACETAMINOPHEN 500 MG TAB PO PRN (09:37)
[2021-04-28] MEDS ORDERED: NA CHLORIDE 0.9% 250 ML IV ONE (09:37)
[2021-04-28] MEDS ORDERED: PROMETHAZINE 25 MG TABLET PO PRN (09:37)
[2021-04-28] MEDS ORDERED: AMLODIPINE 5 MG TAB PO SCH (09:37)
[2021-04-28] MEDS ORDERED: METHYLPREDNISOLONE 40 MG INJ IV SCH (09:37)
[2021-04-28] MEDS ORDERED: ZINC SULFATE 220 MG CAP PO SCH (09:37)
[2021-04-28] MEDS ORDERED: ASPIRIN EC 81 MG TAB PO SCH (09:37)
[2021-04-28] MEDS ORDERED: VITAMIN D 1000 UNIT TAB PO SCH (09:37)
[2021-04-28] MEDS ORDERED: THIAMINE HCL 100 MG TABLET PO SCH (09:37)
[2021-04-28] MEDS: ASCORBIC ACID 500 MG TABLET PO SCH ×2 (09:37→14:00)
[2021-04-28] MEDS ORDERED: HEPARIN 5000 UNIT/ML 1 ML VIAL SQ SCH (09:37)
[2021-04-28 09:59] LABS: Thyroid Stimulating Hormone 1.64 uIU/mL (0.360-3.740)
[2021-04-28 10:13] VITALS: BMI 19.8
[2021-04-28] MEDS ORDERED: THIAMINE HCL 100 MG TABLET ONE (10:38)
[2021-04-28] MEDS ORDERED: AMLODIPINE 5 MG TAB ONE (10:38)
[2021-04-28] MEDS ORDERED: ASCORBIC ACID 500 MG TABLET ONE (10:38)
[2021-04-28] MEDS ORDERED: VITAMIN D 1000 UNIT TAB ONE (10:38)
[2021-04-28] MEDS ORDERED: FAMOTIDINE 20 MG TAB ONE (10:39)
[2021-04-28 14:42] VITALS: O2SAT 88
[2021-04-28 14:52] VITALS: BP 135/80
--- NOTE | 2021-04-28 15:53 | RAD REPORT ---
EXAM DESCRIPTION: NM - Rest Stress Cardiac Imaging - 04/28/2021 2:25 pm CLINICAL HISTORY: Chest pain. COMPARISON: None. TECHNIQUE: The patient was administered 8.9 mCi of Tc 99m Sestamibi prior to resting SPECT imaging o f the heart. The patient was then administered 30.1 mCi of Tc 99m Sestamibi following exercise or pha rmacologic stress. Multiplanar SPECT images were reviewed. FINDINGS: There is uniformity of radiotracer uptake involving the entire left ventricular myocardiu m on rest and stress images. The left ventricular ejection fraction equals 68% IMPRESSION: Negative for a myocardial perfusion defect
--- NOTE | 2021-04-28 17:07 | P.DS ---
Admission Date: 04/28/21 Discharge Date: 04/28/21 Primary Care Provider: Dr. Morillo Disposition: ROUTINE DISCHARGE Discharge Condition: GOOD Reason for Admission: Chest pain and Shortness of breath Consultations: Cardiology-Dr. Daly Procedures: COVID: positive CXR: COMPARISON: 2019 FINDINGS: Left upper lobe opacity. Postsurgical changes involve the chest Right lung appears clear of acute infiltrate. Heart is normal size IMPRESSION: Left upper lobe opacity may represent pneumonia. It is recommended that this be followed until it is clear to help exclude an underlying mass Cardiac Stress Test: COMPARISON: None. TECHNIQUE: The patient was administered 8.9 mCi of Tc 99m Sestamibi prior to resting SPECT imaging of the heart. The patient was then administered 30.1 mCi of Tc 99m Sestamibi following exercise or pharmacologic stress. Multiplanar SPECT images were reviewed. FINDINGS: There is uniformity of radiotracer uptake involving the entire left ventricular myocardium on rest and stress images. The left ventricular ejection fraction equals 68% IMPRESSION: Negative for a myocardial perfusion defect ECHO: Obtained Medical Problem List: Chest pain with history of CAD, CABG times 3 vessel in 2017 HTN COVID Positive Acute on chronic renal disease stage III with Hyponatremia likely dehydration COPD Tobacco abuse Depression with anxiety Chronic pain Brief History of Present Illness: 60 yo CF presented with chest pain and shortness of breath. She was diagnosed with COVID in the middle of the month. She has noted some chest pain to the substernal region. Some SOB is noted. No radiation of pain noted. No palpitations. She has history of CAD and CABG in 2017. She has not followed up with Cardiology since that time. She has HTN, COPD and Smokes tobacco. She was seen in the ER. She was positive for COVID. Trop is negative. Patient admitted for observation. Cardiology consulted. Hospital Course: Patient presented with chest pain. Patient with history of CAD and CABG x3 vessels in 2017. Initial cardiac enzymes unremarkable. Patient was admitted for further evaluation. Case discussed in detail with cardiology. Cardiology recommended cardiac stress test to further evaluate. Cardiac stress test showed no stress-induced ischemia. Repeat troponin unremarkable. Echo obtained. Patient with underlying history of hypertension. At discharge patient will continue with her medications including aspirin 81 mg daily, Norvasc 5 mg daily, and metoprolol 25 mg 1 pill twice daily. Recommend to maintain blood pressure less than 130/80. Further adjustment can be done by her PCP or cardiology. Hold blood pressure medication if blood pressure systolic less than 110 or heart rate less than 60. Recommend follow-up with cardiology in 1 to 2 weeks to follow-up his hospitalization and continue her care. Patient tested positive for COVID-19 earlier this month. Patient was retested. Patient tested positive. Patient still with some fatigue and achiness. At discharge will recommend to continue incentive spirometer, proning. At discharge the patient will continue with prednisone 20 mg 1 pill twice daily for 7 days then 1 pill once daily for 7 days. The patient will continue with vitamin supplementation including zinc 220 mg daily, vitamin C 500 mg 3 times a day, vitamin D 2000 units daily, thiamine 100 mg 1 pill twice daily and Pepcid 20 mg 1 pill twice daily. Patient will quarantine for at least 10 days. Recommend follow-up with PCP to further monitor. Education on COVID-19 will be provided. Recommend to recheck chest x-ray in 2 to 4 weeks to monitor resolution. Patient with underlying COPD. Patient with tobacco abuse. Tobacco cessation addressed in detail. At discharge will increase Advair to 1 puff twice daily. Patient will be given ProAir 2 puffs 3 times a day as needed for shortness of breath. Education on COPD provided. Patient will continue with prednisone as directed. Recommend follow-up with pulmonology as an outpatient to further monitor and address her condition. Recommend to recheck chest x-ray in 2 to 4 weeks to monitor resolution. Patient with chronic pain. At discharge she will continue with her medication including Neurontin 800 mg 4 times a day. Patient with chronic renal insufficiency stage III. Mild hyponatremia noted this is likely from dehydration. Encourage oral intake and hydration. Recommend to recheck labBMP in 1 week to monitor progress. This can be done with the help of her PCP. Vital Signs/Physical Exam: Temp Pulse Resp BP Pulse Ox 87 12 135/80 93 04/28/21 09:37 04/28/21 09:37 04/28/21 09:37 04/28/21 09:37 General: Alert, In no apparent distress, Oriented x3, Cooperative HEENT: Atraumatic Neck: Supple Respiratory: Clear to auscultation bilaterally, Normal air movement Cardiovascular: Normal pulses, Regular rate/rhythm Gastrointestinal: Normal bowel sounds, No tenderness, No masses, No rebound, No guarding Musculoskeletal: No erythema, No tenderness, No warmth Integumentary: No tenderness/swelling Neurological: Normal speech, Normal strength at 5/5 x4 extr, Normal tone, Normal affect Laboratory Data at Discharge: WBC 8.80 K/uL (4.3-10.9) 04/28/21 05:41 Hgb 13.3 g/dL (12.0-15.0) 04/28/21 05:41 Hct 38.2 % (36.0-45.0) 04/28/21 05:41 Plt Count 294 K/uL (152-406) 04/28/21 05:41 PT 10.8 SECONDS (9.5-12.5) 04/28/21 05:41 INR 0.94 04/28/21 05:41 Sodium 129 mmol/L (136-145) L 04/28/21 05:41 Potassium 4.3 mmol/L (3.5-5.1) 04/28/21 05:41 BUN 26 mg/dL (7-18) H 04/28/21 05:41 Creatinine 1.66 mg/dL (0.55-1.3) H 04/28/21 05:41 Glucose 137 mg/dL (74-106) H 04/28/21 05:41 Magnesium 1.9 mg/dL (1.8-2.4) 04/28/21 05:41 Total Bilirubin 0.6 mg/dL (0.2-1.0) 04/28/21 05:41 AST 15 U/L (15-37) 04/28/21 05:41 ALT 19 U/L (12-78) 04/28/21 05:41 Alkaline Phosphatase 96 U/L (45-117) 04/28/21 05:41 Troponin I Cancelled 04/28/21 18:00 Home Medications: Aspirin [Adult Aspirin] 81 mg PO DAILY 10/06/18 Gabapentin [Neurontin] 800 mg PO QID 10/06/18 Amlodipine [Norvasc*] 5 mg PO DAILY #30 tab 10/09/18 Cyanocobalamin [Vitamin B-12*] 1,000 mcg PO DAILY #30 tab 10/09/18 Metoprolol Tartrate [Lopressor*] 25 mg PO BID #60 tab 10/09/18 Albuterol Sulfate [Proair Hfa] 2 puff IH TID PRN #1 hfa.aer.ad 04/28/21 Ascorbic Acid [Vitamin C*] 500 mg PO TID #90 tablet 04/28/21 Famotidine [Pepcid*] 20 mg PO BID #60 tab 04/28/21 Fluticasone/Salmeterol [Advair Hfa 230-21 Mcg Inhaler] 1 puff IH BID #1 aer.w.adap 04/28/21 Thiamine HCl [Vitamin B-1*] 100 mg PO BID #60 tablet 04/28/21 Zinc Sulfate [Zinc Sulfate*] 220 mg PO DAILY #30 cap 04/28/21 predniSONE [Prednisone*] 20 mg PO SEECOM #21 tab 04/28/21 New Medications: Fluticasone/Salmeterol [Advair Hfa 230-21 Mcg Inhaler] 1 puff IH BID #1 aer.w.adap Famotidine [Pepcid*] 20 mg PO BID #60 tab predniSONE [Prednisone*] 20 mg PO SEECOM #21 tab Albuterol Sulfate [Proair Hfa] 2 puff IH TID PRN #1 hfa.aer.ad PRN Reason: Shortness Of Breath Thiamine HCl [Vitamin B-1*] 100 mg PO BID #60 tablet Ascorbic Acid [Vitamin C*] 500 mg PO TID #90 tablet Zinc Sulfate [Zinc Sulfate*] 220 mg PO DAILY #30 cap Physician Discharge Instructions: Patient presented with chest pain. Patient with history of CAD and CABG x3 vessels in 2017. Initial cardiac enzymes unremarkable. Patient was admitted for further evaluation. Case discussed in detail with cardiology. Cardiology recommended cardiac stress test to further evaluate. Cardiac stress test showed no stress-induced ischemia. Repeat troponin unremarkable. Echo obtained. Patient with underlying history of hypertension. At discharge patient will continue with her medications including aspirin 81 mg daily, Norvasc 5 mg daily, and metoprolol 25 mg 1 pill twice daily. Recommend to maintain blood pressure less than 130/80. Further adjustment can be done by her PCP or cardiology. Hold blood pressure medication if blood pressure systolic less than 110 or heart rate less than 60. Recommend follow-up with cardiology in 1 to 2 weeks to follow-up his hospitalization and continue her care. Patient tested positive for COVID-19 earlier this month. Patient was retested. Patient tested positive. Patient still with some fatigue and achiness. At discharge will recommend to continue incentive spirometer, proning. At discharge the patient will continue with prednisone 20 mg 1 pill twice daily for 7 days then 1 pill once daily for 7 days. The patient will continue with vitamin supplementation including zinc 220 mg daily, vitamin C 500 mg 3 times a day, vitamin D 2000 units daily, thiamine 100 mg 1 pill twice daily and Pepcid 20 mg 1 pill twice daily. Patient will quarantine for at least 10 days. Recommend follow-up with PCP to further monitor. Education on COVID-19 will be provided. Recommend to recheck chest x-ray in 2 to 4 weeks to monitor resolution. Patient with underlying COPD. Patient with tobacco abuse. Tobacco cessation addressed in detail. At discharge will increase Advair to 1 puff twice daily. Patient will be given ProAir 2 puffs 3 times a day as needed for shortness of breath. Education on COPD provided. Patient will continue with prednisone as directed. Recommend follow-up with pulmonology as an outpatient to further monitor and address her condition. Recommend to recheck chest x-ray in 2 to 4 weeks to monitor resolution. Patient with chronic pain. At discharge she will continue with her medication including Neurontin 800 mg 4 times a day. Patient with chronic renal insufficiency stage III. Mild hyponatremia noted this is likely from dehydration. Encourage oral intake and hydration. Recommend to recheck labBMP in 1 week to monitor progress. This can be done with the help of her PCP. Diet: AHA Activity: Ad marley Followup: Renetta Morillo DO, DO [Primary Care Provider] - Time spent managing pt's care (in minutes): 55
[2021-04-28 17:09] LABS: CKMB Creatine Kinase MB 2.7 ng/mL (1.0-3.6); Creatine Phosphokinase 150 U/L (26-192); HDL Cholesterol 60 mg/dL (40-60); LDL Cholesterol, Calculated 249 (<130); Troponin I < 0.02 ng/mL (0.0-0.045)
[2021-04-28] MEDS ORDERED: METOPROLOL TAR 25 MG TAB PO SCH (18:00)
[2021-04-28 18:40] VITALS: TEMP 97.5
[2021-04-28] MEDS ORDERED: ATORVASTATIN 10 MG TAB PO SCH (21:00)
--- NOTE | 2021-04-29 09:33 | ECHO ---
HEIGHT: 5 ft 5 in WEIGHT: 119 lb 15.962 oz DATE OF STUDY: 04/28/[address]: Chino Rose DO 2-DIMENSIONAL: YES M.MODE: YES DOPPLER: YES COLOR FLOW: YES TDS: PORTABLE: DEFINITY: BUBBLE STUDY: DIAGNOSIS: CHEST PAIN CARDIAC HISTORY: CATHERIZATION: SURGERY: PROSTHETIC VALVE: PACEMAKER: MEASUREMENTS (cm) DIASTOLIC (NORMALS) SYSTOLIC (NORMALS) IVSd 0.9 (0.6-1.2) LA Diam 3.1 (1.9-4.0) LVEF 73% LVIDd 3.9 (3.5-5.7) LVIDs 2.3 (2.0-3.5) %FS 42% LVPWd 0.7 (0.6-1.2) Ao Diam 2.6 (2.0-3.7) 2 DIMENSIONAL ASSESSMENT: RIGHT ATRIUM: NORMAL LEFT ATRIUM: NORMAL RIGHT VENTRICLE: NORMAL LEFT VENTRICLE: NORMAL TRICUSPID VALVE: NORMAL MITRAL VALVE: NORMAL PULMONIC VALVE: NORMAL AORTIC VALVE: NORMAL PERICARDIAL EFFUSION: NONE AORTIC ROOT: NORMAL LEFT VENTRICULAR WALL MOTION: NORMAL DOPPLER/COLOR FLOW: MILD TRICUSPID REGURGITATION COMMENTS: MILD TRICUSPID REGURGITATION. NORMAL RIGHT VENTRICULAR SYSTOLIC PRESSURE. NO WALL MOTION ABNORMALITY. NORMAL LEFT VENTRICULAR SIZE AND FUNCTION. TECHNOLOGIST: JESENIA PRETTY
--- NOTE | 2021-04-29 10:37 | TREADPHA ---
DX: CHEST PAIN Date of Study: 04/28/2021 Ht: 5' 5 " Wt: 119 lb 15.962 oz Consulting Physician: RORY MEDICATIONS: PROVENTIL, ASPIRIN, AZITHROMYCIN, ATIVAN, SOLU-MEDROL HISTORY: MYOCARDIAL INFARCTION, BYPASS TIMES THREE, CHRONIC OBSTRUCTIVE PULMONARY DISEASE, HYPERTENSION. PHYSICIAL EXAMINATION: RESTING B.P.: 130/75 RESTING H.R.: 92 RESTING EKG: NORMAL SINUS RHYTHM, NON-SPECIFIC T WAVE PROTOCOL: PHARMACOLGIC EXERCISE TIME: 3:30 B.P. AT [place] STRESS: 114/61 IMPRESSION: LEXISCAN STRESS TEST PERFORMED. CARDIOLITE INJECTED PER PROTOCOL. SEE NUCLEAR MEDICINE REPORT. NO SUPRAVENTRICULAR TACHYCARDIA. NO VENTRICULAR TACHYCARDIA. NO ARRHYTHMIAS NOTED. RESPIRATORY EVEN NONLABORED. PATIENT TOLERATED WELL. FREQUENT PREMATURE VENTRICULAR COMPLEXES DURING STRESS.
--- NOTE | 2021-04-29 12:53 | EKG ---
Test Date: 2021-04-28 Test Time: 05:33:35 Cigar Head Puncher: ESTEPHANIA MEASUREMENT RESULTS: Intervals: Rate: 84 WA: 156 QRSD: 72 QT: 362 QTc: 427 [place]: P: 60 WA: 156 QRS: 91 T: 87 INTERPRETIVE STATEMENTS: Sinus rhythm with occasional premature ventricular complexes Rightward axis Anteroseptal infarct, age undetermined Abnormal ECG Compared to ECG 07/29/2019 09:47:21 Ventricular premature complex(es) now present Myocardial infarct finding still present Electronically Signed On 04-29-21 12:50:36 CDT by Macario Daly
--- NOTE | 2021-04-30 10:40 | CON ---
Date of Consultation: 04/28/2021 Reason For Consultation: Chest pain. History Of Present Illness: Ms. Nash is a 60-year-old woman, who actually has had a history of co ronary artery disease. She has had coronary artery bypass surgery, COPD, depression, hypertension. Came in with shortness of breath; chest pain, atypical, sharp, stabbing. No nausea, vomiting, diapho resis, PND, orthopnea, pedal edema, palpitations, or syncope. She has already ruled out for an NH. She had an echocardiogram and a stress test that were pending. Past Medical History: As stated above. Allergies: NONE. Review of Systems: Negative. Social History: Negative. Family History: Noncontributory. Medications: At home include inhalers, Norvasc, vitamin C, aspirin, vitamin B12, Pepcid, Neurontin, metoprolol, zinc, and prednisone. Physical Examination: Vital Signs: Stable, afebrile. HEENT: Negative. Neck: Supple with no bruit. Chest: Clear. Cardiac: Revealed a regular rhythm and rate. No murmurs, gallops, or rubs. Abdomen: Benign. Extremities: Revealed no clubbing, cyanosis, or edema. Diagnostic Data: Creatinine is 1.66. She is COVID positive. Sodium was 129. BNP was 353. C-react gume protein was elevated at 9.84. Triglyceride is 152, cholesterol is 339, LDL is 249. Impression And Plan: 1.Coronary artery disease, status post coronary artery bypass graft with dyslipidemia. She is defin itely should be on a statin. She is not on a statin at home. She should be on Lipitor 80 mg daily. 2.Atypical chest pain. Echocardiogram and stress test are pending. 3.Chronic obstructive pulmonary disease. 4.Hypertension. 5.Gastroesophageal reflux disease. 6.Neuropathy. I will continue her regimen. Continue her present treatment with thiamine, zinc, hep kris, amlodipine, famotidine. Her creatinine is elevated and she needs to be hydrated. We will see what her echo and stress test show regardless. Whether they are negative, we will send her home and we should see her in the office in the near future. MICHEAL/ML Voice ID: [id number] Report ID: [id number]
== END 2021-04-28 17:56 | disposition home or self-care (01) ==
LOC: ER 05:24 → ERHOLD 07:33
PROVIDERS: ADMIT Family Medicine; ATTEND Family Medicine
DX: R07.89 Other chest pain (principal); U07.1 COVID-19; I25.10 Atherosclerotic heart disease of native coronary artery without angina pectoris; Z95.1 Presence of aortocoronary bypass graft; I12.9 Hypertensive chronic kidney disease with stage 1 through stage 4 chronic kidney disease, or unspecified chronic kidney disease; N18.30 Chronic kidney disease, stage 3 unspecified; E87.1 Hypo-osmolality and hyponatremia; J44.9 Chronic obstructive pulmonary disease, unspecified; G89.29 Other chronic pain; M54.9 Dorsalgia, unspecified; G62.9 Polyneuropathy, unspecified; F41.8 Other specified anxiety disorders; F17.210 Nicotine dependence, cigarettes, uncomplicated; Z71.6 Tobacco abuse counseling; Z82.49 Family history of ischemic heart disease and other diseases of the circulatory system; Z83.3 Family history of diabetes mellitus
CPT/HCPCS: 93005; 93017; 93306; 85025; 80048 ×2; 36415; 83735; 82550; 85610; 80061; 80076; 84443; 84484 ×2; 82553; 84439; 82728; 83880; 86140; 71045; 78452; 96375; 96374; 99284; U0003; J0456; J0460; J2785; J7050; J2930; A9500; G0378 ×2

== ENCOUNTER 2021-08-19 11:38 | Emergency (ER) | payer BC ==
--- OUTSIDE RECORDS SUMMARY | 2021-08-19 11:43 | XMS REPORT | Continuity of Care Document ---
:1960 Author Organization [facility] t Address [address] [place] [address] Care Team Providers Name Role Phone Rajesh BROWN, A Primary Care Physician RAJESH, Jillian Attending Clinician Unavailable Rajesh BROWN, A Attending Clinician FRANCA FLEMING Attending Clinician Unavailable FRANCA FLEMING Admitting Clinician Unavailable Payers Payer Name Policy Type Policy Number Effective Date Expiration Date S ource [facility] - [id number] 2020 00:00:00 OUT OF STATE Problems Condition Condition Condition Status Onset Resolution Last Treating Co mments Source Name Details Category Date Date Treatment Clinician Date Coronary Coronary Disease Active 2020-08 Unive rs artery artery 1-17 ity of disease disease 00:00: [address] COPD with COPD with Disease Active 2020-08 Uni vers asthma asthma -17 ity of 00:00: [place] [address] [place] Mixed Mixed Disease Active 2020-08 Univers hyperlipid hyperlipid 1-17 it y of emia emia 00:00: [place] [address] Medical Branch Essential Essential Disease Active 2020-08 Uni vers hypertensi hypertensi 1-17 it y of on on 00:00: [place] [address] Medical Branch Chronic Chronic Disease Active 2020-08 Univers back pain back pain -17 ity of 00:00: [place] [address] Medical Branch History of History of Disease Active 2020-08 U nivers skin skin 1-17 ity of cancer cancer 00:00: [address] Atelectasi Atelectasi Disease Active 2016-[address] [facility] of both s of both 09-26 Luke s - lungs lungs 00:00: [facility] [address] Acute Acute Disease Active 2016-[address] [facility] pulmonary pulmonary 09-26 Luke s - insufficie insufficie 00:00: Me dical ncy ncy 00 Center following following thoracic thoracic surgery surgery Postoperat Postoperat Disease Active 2016-[address] gume anemia gume anemia 09-26 Tammy kes - due to due to 00:00: Medical acute acute [address] blood loss blood loss Acute Acute Disease Active 2016-[address] [facility] pulmonary pulmonary 09-26 Luke s - edema edema 00:00: [address] S/P CABG x S/P CABG x Disease Active 2016-08 U nivers 3 3 09-26 ity of 00:00: [address] ACBx3 (Dr. GONZALEZx3 ( Disease Active 2016-[address] Cornelio, Cornelio, 09-25 [facility] - 07.27.17) 07.27.17) 00:00: [address] Allergies, Adverse Reactions, Alerts Allergy Allergy Status Severity Reaction(s) Onset Inactive Treating Comm ents Source Name Type Date Date Clinician Chlorhex Drug Active Itching 2016-08 new Univers idine Allergy 09-26 ity of 00:00: [address] CHLORHEX DRUG Active High ITCHING 2016-08 Univers IDINE INGREDI 09-26 ity of 00:00: [address] Medical Drug Active Itching 2016-[address] Supply, Allergy 09-26 allergic [facility] - Miscella 00:00: reaction Medica l neous [address] [place] [address] Social History Social Habit Start Date Stop Date Quantity Comments Source Exposure to Not sure [facility] SARS-CoV-2 (event) [facility] Alcohol intake 2021-07-15 2021-07-15 Current University of 00:00:00 00:00:00 non-drinker of [facility] alcohol Branch (finding) Cigarettes smoked 2017-10-26 2017-10-26 Univers ity of current (pack per 00:00:00 00:00:00 [facility] ) - Reported Branch Cigarette 2017-10-26 2017-10-26 University of pack-years 00:00:00 00:00:00 [facility] Tobacco use and 2017-10-26 2017-10-26 Former user Universi ty of exposure 00:00:00 00:00:00 [facility] Sex Assigned At [birth year] [facility] y of 00:00:00 00:00:00 [facility] Smoking Status Start Date Stop Date Source Former smoker 2017-10-26 00:00:00 2017-10-26 00:00:00 [facility] Medications Ordered Filled Start Stop Current Ordering Indication Dosage Frequency Signature Comments Components Source Medication Medication Date Date Medication? Clinician (SIG) Name Name IBUPROFEN 2020-08 Yes Take by [facility] ers ORAL 1-17 mouth as ity of 09:28: needed. [address] IBUPROFEN 2020-08 Yes Take by [facility] ers ORAL 1-17 mouth as ity of 09:28: needed. [address] IBUPROFEN 2020-08 Yes Take by [facility] ers ORAL 1-17 mouth as ity of 09:28: needed. [address] duloxetine 2020-08 Yes Take by Uni vers HCl 1-17 mouth ity of (DULOXETINE 09[place] [address] [place] [address] duloxetine 2020-08 Yes Take by Uni vers HCl 1-17 mouth ity of (DULOXETINE 09:28[place]. [place] [facility] duloxetine 2020-08 Yes Take by Uni vers HCl 1-17 mouth ity of (DULOXETINE 09:28[place] [address] [place] [address] aspirin 81 2020-08 Yes 81mg Take 81 mg U nivers mg chewable 1-17 by mouth ity of tablet 09:18: daily. [address] albuterol 2020-08 Yes 2.5mg Inhale 2.5 U nivers 2.5 mg /3 1-17 mg every 4 ity of mL (0.083 09:18: (four) [place] ) 33 hours as Medical nebulizer needed for Bran ch solution Wheezing or Shortness of Breath. aspirin 81 2020-08 Yes 81mg Take 81 mg U nivers mg chewable 1-17 by mouth ity of tablet 09:18: daily. [address] albuterol 2020-08 Yes 2.5mg Inhale 2.5 U nivers 2.5 mg /3 1-17 mg every 4 ity of mL (0.083 09:18: (four) [place] %) 33 hours as Medical nebulizer needed for Bran ch solution Wheezing or Shortness of Breath. aspirin 81 2020-08 Yes 81mg Take 81 mg U nivers mg chewable 1-17 by mouth ity of tablet 09:18: daily. [address] Branch albuterol 2020-08 Yes 2.5mg Inhale 2.5 U nivers 2.5 mg /3 1-17 mg every 4 ity of mL (0.083 09:18: (four) [place] %) 33 hours as Medical nebulizer needed for Bran ch solution Wheezing or Shortness of Breath. gabapentin 2020-08 Yes 800mg Take 800 Un mannie 800 mg 1-17 mg by ity of tablet 09:14: mouth 4 [place] 40 (four) Medical times Branch daily. albuterol 2020-08 Yes 2{puff} Inhale 2 U nivers (VENTOLIN 1-17 Puffs ity of HFA) 90 09:14: every 6 [place] mcg/actuati 40 (six) Medical on inhaler hours as Branc h needed for Wheezing or Shortness of Breath. gabapentin 2020-08 Yes 800mg Take 800 Un mannie 800 mg 1-17 mg by ity of tablet 09:14: mouth 4 [place] 40 (four) Medical times Branch daily. albuterol 2020-08 Yes 2{puff} Inhale 2 U nivers (VENTOLIN 1-17 Puffs ity of HFA) 90 09:14: every 6 [place] mcg/actuati 40 (six) Medical on inhaler hours as Branc h needed for Wheezing or Shortness of Breath. gabapentin 2020-08 Yes 800mg Take 800 Un mannie 800 mg 1-17 mg by ity of tablet 09:14: mouth 4 [place] 40 (four) Medical times Branch daily. albuterol 2020-08 Yes 2{puff} Inhale 2 U nivers (VENTOLIN 1-17 Puffs ity of HFA) 90 09:14: every 6 [place] mcg/actuati 40 (six) Medical on inhaler hours as Branc h needed for Wheezing or Shortness of Breath. methylPREDN 2020-08 Yes [id number] Follow [facility] package ity of mg tablets 00:00: directions T ex 00 Medical Branch methocarbam 2020-08 Yes [id number] 500mg Take 1 Univers oL 500 mg 1-17 tablet by ity o f tablet 00:00: mouth 4 [place] ([facility]) Medical times Branch daily as needed (muscle pain or spasm). methylPREDN 2020-08 Yes [id number] Follow Univers ISolone 4 1-17 package ity of mg tablets 00:00: directions [facility] Branch methocarbam 2020-08 Yes [id number] 500mg Take 1 Univers oL 500 mg 1-17 tablet by ity o f tablet 00:00: mouth 4 [place] ([facility]) Medical times [place] daily as needed (muscle pain or spasm). methylPREDN 2020-08 Yes [id number] Follow Univers ISolone 4 1-17 package ity of mg tablets 00:00: directions [facility] methocarbam 2020-08 Yes [id number] 500mg Take 1 Univers oL 500 mg 1-17 tablet by ity o f tablet 00:00: mouth 4 [place] ([facility]) Medical times [place] daily as needed (muscle pain or spasm). amLODIPine Yes 5mg Take 5 mg Un mannie 5 mg tablet 9-30 by mouth ity of 00:00: daily. [place] [facility] amLODIPine 0 Yes 5mg Take 5 mg Un mannie 5 mg tablet 9-30 by mouth ity of 00:00: daily. [place] [facility] amLODIPine 0 Yes 5mg Take 5 mg Un mannie 5 mg tablet 9-30 by mouth ity of 00:00: daily. [place] [facility] metoprolol Yes 25mg Take 1 Unive rs tartrate 25 1-18 tablet by ity of mg tablet 00:00: mouth 2 [place] (two) Medical times Branch daily. metoprolol 0 Yes 25mg Take 1 Unive rs tartrate 25 1-18 tablet by ity of mg tablet 00:00: mouth 2 [place] (two) Medical times Branch daily. metoprolol 0 Yes 25mg Take 1 Unive rs tartrate 25 1-18 tablet by ity of mg tablet 00:00: mouth 2 [place] (two) Medical times Branch daily. atorvastati 2020- No 40mg Take 1 Uni vers n 40 mg 9-21 11-17 tablet by ity of tablet 00:00: 00:00 mouth [place] 00 :00 daily. Medical Branch atorvastati 2020- No 40mg Take 1 Uni vers n 40 mg 9-21 -17 tablet by ity of tablet 00:00: 00:00 mouth [place] 00 :00 daily. Medical Branch clopidogrel 2020- No 75mg Take 1 Uni vers 75 mg 2-28 11-17 tablet by ity of tablet 00:00: 00:00 mouth [place] 00 :00 daily. Medical Branch clopidogrel 2020- No 75mg Take 1 Uni vers 75 mg 2-28 -17 tablet by ity of tablet 00:00: 00:00 mouth [place] 00 :00 daily. Medical Branch albuterol 2016-08 Yes 1{puff} Inhale [address] HFA 2-04 puff by Enmanuel - (VENTOLIN 14:52: mouth via Med ical HFA) 90 06 inhaler Center mcg/actuati every 6 on inhaler (six) hours as needed for Wheezing. thiamine 2016-08 Yes 100mg QD Take [address] [facility] [address] (VITAMIN 2-04 mg by Enmanuel - B-1) 100 MG 14:52: mouth Medic al tablet 06 daily. [place] folic acid 2016-08 Yes 1mg QD Take [address] (FOLVITE) 1 2-04 by mouth Luke s - MG tablet 14:52: daily. Medica l [address] [place] [address] acetaminoph 2016-08 Yes 1{tbl} Take [address] en-codeine 2-04 tablet by Db s - (TYLENOL 00:00: mouth Medical #3) 300-30 00 every 6 Center mg per (six) tablet hours as needed for Pain. Max Daily Amount: 4 tablets gabapentin 2016-08 Yes 400mg [id number] Take 0.[address] (NEURONTIN) 2-04 [id number] tablets [facility] - 800 MG 00:00: 3D (400 mg Medical tablet 00 total) by Center mouth 3 (three) times daily. metoprolol 2016-08 Yes 25mg Q.5D Take 1 [facility] (LOPRESSOR) 2-04 tablet (25 Tammy kes - 25 MG 00:00: mg total) Medical tablet 00 by mouth 2 Center (two) times daily. Immunizations Ordered Filled Immunization Date Status Comments [facility] e Immunization Name Name SARS-COV-2 COVID-19 2020-11-15 Completed Unive rsity of PFIZER VACCINE 00:00:00 [facility] SARS-COV-2 COVID-19 2020-11-15 Completed Unive rsity of PFIZER VACCINE 00:00:00 [facility] SARS-COV-2 COVID-19 2020-11-15 Completed Unive rsity of PFIZER VACCINE 00:00:00 [facility] SARS-COV-2 COVID-19 2020-10-25 Completed Unive rsity of PFIZER VACCINE 00:00:00 [facility] SARS-COV-2 COVID-19 2020-10-25 Completed Unive rsity of PFIZER VACCINE 00:00:00 [facility] SARS-COV-2 COVID-19 2020-10-25 Completed Unive rsity of PFIZER VACCINE 00:00:00 [facility] Vital Signs Vital Name Observation Time Observation Value Comments Source Systolic blood 2021-07-15 15:13:00 122 mm[Hg] [facility] [place] [facility] Diastolic blood 2021-07-15 15:13:00 56 mm[Hg] [facility]ive [facility] [place] [facility] Heart rate 2021-07-15 15:13:00 71 /min [facility] Body height 2021-07-15 15:13:00 165.1 cm [facility] Body weight 2021-07-15 15:13:00 55.792 kg [facility] BMI 2021-07-15 15:13:00 20.47 kg/m2 [facility] Oxygen saturation 2021-07-15 15:13:00 97 /min [facility] in Arterial blood [facility] by Pulse oximetry Procedures This patient has no known procedures. Encounters Start End Encounter Admission Attending Care Care Encounter Source Date/Time Date/Time Type Type Clinicians Facility Department ID 2021-07-15 2021-07-15 Outpatient R RAJESH [facility] [id number] [facility] 09:40:00 23:59:00 FIGUEROA cabezas [facility] 2021-07-15 2021-07-15 [facility] Rajesh [facility] [id number] [facility] 09:40:00 23:59:00 Encounter Wondiful [facility] [id number] ity of [place] [id number] Ghulam as CHANCE?BLEA [id number] Nd dicmiya BUI 809 [facility] OFFICE BUILDING 2021-07-15 2021-07-15 Office DAFNE Guerra [id number] 587 Univers 08:56:32 09:54:40 Visit Figueroa [facility] [id number] ity of [place] [id number] Ghulam as CHANCE?BLEA [id number] Nd dicmiya [facility] 044 [facility] OFFICE BUILDING Results Test Description Test Time Test Comments Results Result [facility] e Comments RAD, CHEST, PA OR 2017-08-01 Reason for FINAL REPORT PATIENT AP, 1 VIEW 09:05:00 exam:->post-op ID: [id number] Chest one view. Clinical history: post-op Comparison: July 28, 2017 Discussion: A frontal chest is provided. Cardiomediastinal contours are unchanged. Right IJ line has been removed. There is patchy retrocardiac opacity is slightly improved since the previous exam. A small left effusion is present. No pneumothorax. Signed: Hemant Paige Verified Date/Time: 08/01/2017 09:05:03 Reading Location: [facility] Radiology Reading Room ESIUM 2017-08-01 06:58:00 Test Item Value Reference Range Interpretation Comme nts MAGNESIUM (BEAKER) (test code = 627) 1.8 mg/dL 1.6-2.6 CBC W/PLT COUNT & AUTO [id number] 05:44:00 Test Item Value Reference Range Interpretation [...] = 2801) CBC W/PLT COUNT & AUTO [id number] 07:13:00 Test Item Value Reference Range Interpretation [...] 0-1 PERCENT (BEAKER) (test code = 2801) [id number] 04:08:00 Test Item Value Reference Range Interpretation Comments MAGNESIUM (BEAKER) (test code = 1.3 mg/dL 1.6-2.6 L 627) BASIC METABOLIC [id number] 04:08:00 Test Item Value Reference Range Interpretation [...] NOT APPLICABLE FOR DIALYSIS PATIEN TS. POCT-GLUCOSE [id number] 12:53:00 Test Item Value Reference Range Interpretation Comments POC-GLUCOSE METER 192 mg/dL 70-110 [facility] (BEAKER) (test code = [place] 15[address]) [id number] POCT-GLUCOSE [id number] 07:54:00 Test Item Value Reference Range Interpretation Comments POC-GLUCOSE METER 129 mg/dL 70-110 [facility] (BEAKER) (test code = [place] 1538) [id number] BASIC METABOLIC [id number] 05:37:00 Test Item Value Reference Range Interpretation [...] PATIEN TS. CBC W/PLT COUNT & AUTO [id number] 05:07:00 Test Item Value Reference Range Interpretation [...] ABSOLUTE COUNT 0.98 K/ L 1.18-3.74 L (AKER) (test code = 414) MONOCYTES ABSOLUTE COUNT (BEAKER) 0.64 K/ L 0.24-0.36 H (test code = 415) EOSINOPHILS ABSOLUTE COUNT 0.16 K/ L 0.04-0.36 (AKER) (test code = 416) BASOPHILS ABSOLUTE COUNT (AKER) 0.04 K/ L 0.01-0.08 (test code = 417) IMMATURE GRANULOCYTES-RELATIVE 1 % 0-1 PERCENT ([facility] (test code = 2801) POCT-GLUCOSE [id number] 21:03:00 Test Item Value Reference Range Interpretation Comments POC-GLUCOSE METER 239 mg/dL 70-110 H TESTED AT [place] [address] ([facility] (test code = [facility] 1538) [id number] POCT-GLUCOSE [id number] 17:20:00 Test Item Value Reference Range Interpretation Comments POC-GLUCOSE METER 201 mg/dL 70-110 H TESTED AT [place] [address] ([facility] (test code = [facility] 1538) [id number] HEMOGLOBIN AND [id number] 16:41:00 Test Item Value Reference Range Interpretation Comments HEMOGLOBIN ([facility] (test code = 9.8 GM/DL 11.2-15.7 L 410) HEMATOCRIT ([facility] (test code = 29.3 % 34.1-44.9 L 411) Draw after transfusion has been completed.POCT-GLUCOSE [id number] 12:59:00 Test Item Value Reference Range Interpretation Comments POC-GLUCOSE METER 133 mg/dL 70-110 H TESTED AT [place] [address] ([facility] (test code = [facility] 1538) [id number] URINE [id number] 11:53:00 Test Item Value Reference Range Interpretation Comments CULTURE ([facility] (test code = 1095) No growth POCT-GLUCOSE [id number] 09:34:00 Test Item Value Reference Range Interpretation Comments POC-GLUCOSE METER 97 mg/dL 70-110 TESTED AT [place] [address] ([facility] (test code = [facility] [address] 1538) CBC W/PLT COUNT & AUTO [id number] 05:55:00 Test Item Value Reference Range Interpretation [...] (BEAKER) (test code = 2801) BASIC METABOLIC [id number] 05:53:00 Test Item Value Reference Range Interpretation [...] NOT APPLICABLE FOR DIALYSIS PATIEN TS. POCT-GLUCOSE [id number] 21:23:00 Test Item Value Reference Range Interpretation Comments POC-GLUCOSE METER 142 mg/dL 70-110 H TESTED AT [facility] 67[facility] ([facility] (test code = [place] 15[address]) [address] RAD, CHEST, 1 VIEW, NON [id number] 15:31:00Reason for exam:->post ct removalFINAL REPORT TECHNIQUE: [...] Lópezeport Verified Date/Time: 07/28/2017 15:31:00 Reading Location: [facility] Radiology Reading Room POCT-GLUCOSE [id number] 12:12:00 Test Item Value Reference Range Interpretation Comments POC-GLUCOSE METER 100 mg/dL 70-110 TESTED AT [facility] 6720 (BEAKER) (test code = KARINA [place] 15[address]) [address] POCT-GLUCOSE [id number] 06:41:00 Test Item Value Reference Range Interpretation Comments POC-GLUCOSE METER 143 mg/dL 70-110 H TESTED AT [facility] 6720 (BEAKER) (test code = KARINA Betts [facility] 1538) [address] RAD, CHEST, 1 VIEW, NON [id number] 05:13:00Reason for exam:->Post opShould this be performed [...] MDReport Verified Date/Time: 07/28/2017 05:13:19 Reading Location: [facility] B1 C013Y CT Body Reading Room BLOOD GAS, [id number] 05:03:00 Test Item Value Reference Range Interpretation [...] (BEAKER) (test code = 1819) 36.0 % [id number] 04:52:00 Test Item Value Reference Range Interpretation [...] is 2.5-3.5 for patients with mechanical heart valves.[id number] 04:39:00 Test Item Value Reference Range Interpretation Comments MAGNESIUM (BEAKER) (test code = 1.9 mg/dL 1.6-2.6 627) BASIC METABOLIC [id number] 04:39:00 Test Item Value Reference Range Interpretation [...] PATIEN TS. CBC W/PLT COUNT & AUTO [id number] 04:24:00 Test Item Value Reference Range Interpretation [...] 0-1 PERCENT (BEAKER) (test code = 2801) [id number] 01:03:00 Test Item Value Reference Range Interpretation Comments POTASSIUM (BEAKER) (test code = 4.0 meq/L 3.5-5.1 379) [id number] 01:03:00 Test Item Value Reference Range Interpretation Comments MAGNESIUM (BEAKER) (test code = 2.0 mg/dL 1.6-2.6 627) POCT-GLUCOSE [id number] 01:01:00 Test Item Value Reference Range Interpretation Comments POC-GLUCOSE METER 150 mg/dL 70-110 H TESTED AT [facility] 6720 (BEAKER) (test code = [place] [address]) [address] HEMOGLOBIN AND [id number] 00:51:00 Test Item Value Reference Range Interpretation Comments HEMOGLOBIN (BEAKER) (test code = 8.3 GM/DL 11.2-15.7 L 410) HEMATOCRIT (BEAKER) (test code = 24.0 % 34.1-44.9 L 411) CALCIUM, [id number] 00:48:00 Test Item Value Reference Range Interpretation Comments CALCIUM IONIZED (BEAKER) (test 1.25 mmol/L 1.12-1.27 code = 698) PH, BLOOD (BEAKER) (test code = 7.39 1810) BLOOD GAS, [id number] 20:03:00 Test Item Value Reference Range Interpretation [...] (test code = 1819) 32.0 % POCT-GLUCOSE [id number] 18:26:00 Test Item Value Reference Range Interpretation Comments POC-GLUCOSE METER 169 mg/dL 70-110 H TESTED AT [facility] 6720 (BEAKER) (test code = [place] 1538) [id number] BLOOD GAS, [id number] 16:32:00 Test Item Value Reference Range Interpretation [...] code = 1819) 40.0 % HEMOGLOBIN AND [id number] 15:45:00 Test Item Value Reference Range Interpretation Comments HEMOGLOBIN (BEAKER) (test code = 8.9 GM/DL 11.2-15.7 L 410) HEMATOCRIT (BEAKER) (test code = 25.6 % 34.1-44.9 L 411) FACTOR 10 [id number] 15:30:00 Test Item Value Reference Range Interpretation Comments FACTOR X ACTIVITY (BEAKER) (test code 79.0 % 70.0-120.0 = 662) [id number] 13:47:00 Test Item Value Reference Range Interpretation Comments FIBRINOGEN LEVEL (BEAKER) (test 567 mg/dl 225-434 H code = 658) PROTHROMBIN [id number] 13:47:00 Test Item Value Reference Range Interpretation Comments PROTIME (BEAKER) (test code = 17.5 seconds 11.7-14.7 H 759) INR (BEAKER) (test code = 370) 1.4 <=5.9 RECOMMENDED COUMADIN/WARFARIN INR THERAPY RANGESSTANDARD DOSE: 2.0 - 3.0 Includes: PROPHYLAXIS forvenous thrombosis, systemic embolization; TREATMENT for venous thrombosis and/or pulmonary embolus.HIGH RISK: Target INR is 2.5-3.5 for patients with mechanical heart valves.[id number] 13:47:00 Test Item Value Reference Range Interpretation Comments PARTIAL THROMBOPLASTIN TIME 35.0 seconds 22.5-36.0 (BEAKER) (test code = 760) RAD, CHEST, 1 VIEW, NON [id number] 13:16:00Reason for exam:->Post OpShould this be performed [...] effusion. Status post median sternotomy. Signed: Hemant Paigeort Verified Date/Time: 07/27/2017 13:16:03 Reading Location: [address] Consult Reading Room Electronicallysigned by: HEMANT [...] = 1414) CBC W/PLT COUNT & AUTO [id number] 12:37:00 Test Item Value Reference Range Interpretation [...] 0-1 PERCENT (BEAKER) (test code = 2801) [id number] 12:19:00 Test Item Value Reference Range Interpretation Comments MAGNESIUM (BEAKER) (test code = 2.9 mg/dL 1.6-2.6 H 627) COMPREHENSIVE METABOLIC [id number] 12:19:00 Test Item Value Reference Range Interpretation [...] DIALYSIS PATIEN TS. LACTIC ACID, ARTERIAL, WHOLE [id number] 12:14:00 Test Item Value Reference Range Interpretation Comments LACTATE BLOOD ARTERIAL (2) 0.9 mmol/L 0.5-2.2 (BEAKER) (test code = 2874) Effective 12/31/2015: Units/Reference Range ChangeNew: 0.5-2.2 mmol/L Previous: 5-20 mg/dLOXYGEN SATURATION, [id number] 11:46:00 Test Item Value Reference Range Interpretation Comments O2 SATURATION (MEASURED) (BEAKER) 81.7 % (test code = 1455) BLOOD GAS, [id number] 11:44:00 Test Item Value Reference Range Interpretation [...] 21-29 = 388) BASE EXCESS ARTERIAL (BEAKER) -0.9 mmol/L -2.0-3.0 (test code = 387) PATIENT TEMPERATURE (BEAKER) 34.2 C (test code = 1818) FIO2 (BEAKER) (test code = 1819) 60.0 % SODIUM NA-STAT [id number] 11:44:00 Test Item Value Reference Range Interpretation Comments SODIUM (BEAKER) (test code = 381) 130 meq/L 135-148 L GLUCOSE-STAT [id number] 11:44:00 Test Item Value Reference Range Interpretation Comments GLUCOSE RANDOM (BEAKER) (test code 194 mg/dL 70-110 H = 652) HGB/HCT (H&H) - STAT [id number] 11:44:00 Test Item Value Reference Range Interpretation Comments HEMOGLOBIN (BEAKER) (test code = 8.1 g/dL 12.0-15.0 L 410) HEMATOCRIT (BEAKER) (test code = 24.0 % 36.0-45.0 L 411) FILTER IONIZED [id number] 11:44:00 Test Item Value Reference Range Interpretation Comments FILTER IONIZED CALCIUM (BEAKER) 1.35 nnol/L (test code = 1854) Reference Range: No NormalsPOTASSIUM-STAT [id number] 11:43:00 Test Item Value Reference Range Interpretation [...] MM 55.0-65.0 (test code = 1413) PLATELET [id number] 11:08:00 Test Item Value Reference Range Interpretation Comments PLATELET COUNT (BEAKER) (test 142 K/CU MM 150-450 L code = 756) CALCIUM, [id number] 10:35:00 Test Item Value Reference Range Interpretation Comments CALCIUM IONIZED (BEAKER) (test 0.91 mmol/L 1.12-1.27 L code = 698) PH, BLOOD (BEAKER) (test code = 7.31 1810) BLOOD GAS, [id number] 10:35:00 Test Item Value Reference Range Interpretation Comments PH ARTERIAL (BEAKER) (test code = 7.34 7.35-7.45 L 383) PCO2 ARTERIAL (BEAKER) (test code 41 mmHg 35-45 = 384) PO2 ARTERIAL (BEAKER) (test code 204 mmHg 80-90 H = 385) O2 SATURATION ARTERIAL (BEAKER) 99.3 % 96.0-97.0 H (test code = 386) HCO3 ARTERIAL (BEAKER) (test code 22 mmol/L - = 388) BASE EXCESS ARTERIAL (BEAKER) -3.8 mmol/L -2.0-3.0 L (test code = 387) PATIENT TEMPERATURE (BEAKER) 35.0 C (test code = 1818) FIO2 (BEAKER) (test code = 1819) 100.0 % SODIUM NA-STAT [id number] 10:35:00 Test Item Value Reference Range Interpretation Comments SODIUM (BEAKER) (test code = 381) 130 meq/L 135-148 L GLUCOSE-STAT [id number] 10:35:00 Test Item Value Reference Range Interpretation Comments GLUCOSE RANDOM (BEAKER) (test code 194 mg/dL 70-110 H = 652) HGB/HCT (H&H) - STAT [id number] 10:35:00 Test Item Value Reference Range Interpretation Comments HEMOGLOBIN (BEAKER) (test code = 10.3 g/dL 12.0-15.0 L 410) HEMATOCRIT (BEAKER) (test code = 30.0 % 36.0-45.0 L 411) POTASSIUM-STAT [id number] 10:34:00 Test Item Value Reference Range Interpretation Comments POTASSIUM (BEAKER) (test code = 5.1 meq/L 3.6-5.5 379) [id number] 10:26:00 Test Item Value Reference Range Interpretation Comments ACTIVATED CLOTTING TIME 131 sec TEST ED AT [place] [address] ([facility] (test code = [place]) [id number] 10:26:00 Test Item Value Reference Range Interpretation Comments ACTIVATED CLOTTING TIME 521 sec TEST ED AT [place] [address] ([facility] (test code = KARINA ALFREDO [facility]) [id number] 10:26:00 Test Item Value Reference Range Interpretation Comments ACTIVATED CLOTTING TIME 521 sec TEST ED AT [place] [address] ([facility] (test code = [place] [address]) [id number] 10:26:00 Test Item Value Reference Range Interpretation Comments ACTIVATED CLOTTING TIME 505 sec TEST ED AT [place] [address] ([facility] (test code = [place]INA [place] [address]) [id number] 10:17:00 Test Item Value Reference Range Interpretation Comments FIBRINOGEN LEVEL (BEAKER) (test 536 mg/dl 225-434 H code = 658) [id number] 10:17:00 Test Item Value Reference Range Interpretation Comments PARTIAL THROMBOPLASTIN TIME 38.7 seconds 22.5-36.0 H (BEAKER) (test code = 760) PROTHROMBIN [id number] 10:16:00 Test Item Value Reference Range Interpretation Comments PROTIME (BEAKER) (test code = 18.8 seconds 11.7-14.7 H 759) INR (BEAKER) (test code = 370) 1.6 <=5.9 RECOMMENDED [...] platelet dysfunction (BEAKER) (test code = 2173) [id number] Yuri Quijano M.D. (BEAKER) (test code = (electonic signature) 7429) PLATELET COUNT AGG 410 K/CU MM 150-450 (BEAKER) (test code = 7700) for patients on clopidogrel in past two weeksCALCIUM, [id number] 09:46:00 Test Item Value Reference Range Interpretation Comments CALCIUM IONIZED (BEAKER) (test 1.41 mmol/L 1.12-1.27 H code = 698) PH, BLOOD (BEAKER) (test code = 7.30 1810) BLOOD GAS, [id number] 09:45:00 Test Item Value Reference Range Interpretation [...] code = 1819) 100.0 % SODIUM NA-STAT [id number] 09:45:00 Test Item Value Reference Range Interpretation Comments SODIUM (BEAKER) (test code = 381) 124 meq/L 135-148 L POTASSIUM-STAT [id number] 09:45:00 Test Item Value Reference Range Interpretation Comments POTASSIUM (BEAKER) (test code = 5.8 meq/L 3.6-5.5 H 379) GLUCOSE-STAT [id number] 09:45:00 Test Item Value Reference Range Interpretation Comments GLUCOSE RANDOM (BEAKER) (test code 172 mg/dL 70-110 H = 652) HGB/HCT (H&H) - STAT [id number] 09:45:00 Test Item Value Reference Range Interpretation Comments HEMOGLOBIN (BEAKER) (test code = 8.6 g/dL 12.0-15.0 L 410) HEMATOCRIT (BEAKER) (test code = 25.0 % 36.0-45.0 L 411) BLOOD GAS, [id number] 09:31:00 Test Item Value Reference Range Interpretation Comments PH ARTERIAL (BEAKER) (test code = 7.35 7.35-7.45 383) PCO2 ARTERIAL (BEAKER) (test code 39 mmHg 35-45 = 384) PO2 ARTERIAL (BEAKER) (test code 320 mmHg 80-90 H = 385) O2 SATURATION ARTERIAL (BEAKER) 99.7 % 96.0-97.0 H (test code = 386) HCO3 ARTERIAL (BEAKER) (test code 21 mmol/L -29 = 388) BASE EXCESS ARTERIAL (BEAKER) -4.2 mmol/L -2.0-3.0 L (test code = 387) PATIENT TEMPERATURE (BEAKER) 35.4 C (test code = 1818) FIO2 (BEAKER) (test code = 1819) 75.0 % SODIUM NA-STAT [id number] 09:31:00 Test Item Value Reference Range Interpretation Comments SODIUM (BEAKER) (test code = 381) 124 meq/L 135-148 L GLUCOSE-STAT [id number] 09:31:00 Test Item Value Reference Range Interpretation Comments GLUCOSE RANDOM (BEAKER) (test code 162 mg/dL 70-110 H = 652) HGB/HCT (H&H) - STAT [id number] 09:31:00 Test Item Value Reference Range Interpretation Comments HEMOGLOBIN (BEAKER) (test code = 8.8 g/dL 12.0-15.0 L 410) HEMATOCRIT (BEAKER) (test code = 26.0 % 36.0-45.0 L 411) POTASSIUM-STAT [id number] 09:31:00 Test Item Value Reference Range Interpretation Comments POTASSIUM (BEAKER) (test code = 6.2 meq/L 3.6-5.5 HH 379) BLOOD GAS, [id number] 09:09:00 Test Item Value Reference Range Interpretation [...] (test code = 1819) 70.0 % GLUCOSE-STAT [id number] 09:09:00 Test Item Value Reference Range Interpretation Comments GLUCOSE RANDOM (BEAKER) (test code 150 mg/dL 70-110 H = 652) SODIUM NA-STAT [id number] 09:08:00 Test Item Value Reference Range Interpretation Comments SODIUM (BEAKER) (test code = 381) 124 meq/L 135-148 L POTASSIUM-STAT [id number] 09:08:00 Test Item Value Reference Range Interpretation Comments POTASSIUM (BEAKER) (test code = 5.5 meq/L 3.6-5.5 379) HGB/HCT (H&H) - STAT [id number] 09:08:00 Test Item Value Reference Range Interpretation Comments HEMOGLOBIN (BEAKER) (test code = 7.6 g/dL 12.0-15.0 L 410) HEMATOCRIT (BEAKER) (test code = 22.0 % 36.0-45.0 L 411) POTASSIUM-STAT [id number] 08:00:00 Test Item Value Reference Range Interpretation Comments POTASSIUM (BEAKER) (test code = 3.8 meq/L 3.6-5.5 379) CALCIUM, [id number] 08:00:00 Test Item Value Reference Range Interpretation Comments CALCIUM IONIZED (BEAKER) (test 1.15 mmol/L 1.12-1.27 code = 698) PH, BLOOD (BEAKER) (test code = 7.38 1810) BLOOD GAS, [id number] 08:00:00 Test Item Value Reference Range Interpretation [...] code = 1819) 100.0 % SODIUM NA-STAT [id number] 08:00:00 Test Item Value Reference Range Interpretation Comments SODIUM (BEAKER) (test code = 381) 130 meq/L 135-148 L GLUCOSE-STAT [id number] 08:00:00 Test Item Value Reference Range Interpretation Comments GLUCOSE RANDOM (BEAKER) (test code 134 mg/dL 70-110 H = 652) HGB/HCT (H&H) - STAT [id number] 08:00:00 Test Item Value Reference Range Interpretation Comments HEMOGLOBIN (BEAKER) (test code = 10.4 g/dL 12.0-15.0 L 410) HEMATOCRIT (BEAKER) (test code = 31.0 % 36.0-45.0 L 411) RAD, CHEST, 1 VIEW, NON [id number] 07:24:00Reason for exam:->pre opShould this be performed at the bedside?->YesFINAL REPORT Chest one view. Clinical history: pre op Comparison: No priors Discussion: A frontal chest is provided. The cardiac and mediastinal contours are normal. There is no pneumothorax, henrietta pulmonary edema, consolidation or significant pleural effusion. The bony structures are unremarkable. Signed: Hemant Paige Verified Date/Time: 07/27/2017 07:24:49 [facility] Electronically signed by: HEMANT PAIGE M.D. on 07:24 [id number] 04:33:00 Test Item Value Reference Range Interpretation [...] 2.5-3.5 for patients with mechanical heart valves.PROTHROMBIN [id number] 04:32:00 Test Item Value Reference Range Interpretation [...] 0-0 (BEAKER) (test code = 413) HEMOGLOBIN [id number] 20:12:00 Test Item Value Reference Range Interpretation Comments HEMOGLOBIN A1C (BEAKER) (test code = 6.6 % 4.3-6.1 H 368) PLATELET AGGREGATION: FUNCTION [id number] 18:20:00 Test Item Value Reference Range Interpretation Comments WEAK ADP 43 % 60-91 L RESULT(BEAKER) (test code = 2135) PLATELET FUNCTION 40-49% indicates SCREEN INTERP moderate platelet (BEAKER) (test code = dysfunction 2173) [id number] Yuri Quijano M.D. (BEAKER) (test code = (electonic signature) 3173) PLATELET COUNT AGG 417 K/CU MM 150-450 (BEAKER) (test code = 6106) for patients on clopidogrel in past two weeksLIPID [id number] 13:14:00 Test Item Value Reference Range Interpretation [...] 130-159 High 160-189 Very High >=190BASIC METABOLIC [id number] 09:12:00 Test Item Value Reference Range Interpretation [...] APPLICABLE FOR DIALYSIS PATIEN TS. HEPATIC FUNCTION [id number] 09:12:00 Test Item Value Reference Range Interpretation [...] slightly (test code = 347) hemolyzed PROTHROMBIN [id number] 05:58:00 Test Item Value Reference Range Interpretation [...] % 0-1 PERCENT (BEAKER) (test code = 4339)
--- NOTE | 2021-08-19 12:13 | ER ---
Nurse's Notes [facility] Name: Mallory Nash Age: 61 yrs Sex: Female : 1960 Arrival Date: 08/19/2021 Time: 11:42 Bed 4 Private MD: Diagnosis: Other chronic pain-Chronic back pain Presentation: 08/19 11:47 Chief complaint: Patient states: was being seen at her doctors office for back pain, iw had a low O2 reading 74-76% was sent to ER for eval, has hx of breathing problems, COPD is now 95% on RA in triage , is still having back pain that started a couple months ago and has gotten worse, was told we would help her with her back pain also. Coronavirus screen: At this time, the client does not indicate any symptoms associated with coronavirus-19. Ebola Screen: Patient negative for fever greater than or equal to 101.5 degrees Fahrenheit, and additional compatible Ebola Virus Disease symptoms Patient denies exposure to infectious person. Patient denies travel to an Ebola-affected area in the 21 days before illness onset. No symptoms or risks identified at this time. Initial Sepsis Screen: Does the patient meet any 2 criteria? No. Patient's initial sepsis screen is negative. Does the patient have a suspected source of infection? No. Patient's initial sepsis screen is negative. Risk Assessment: Do you want to hurt yourself or someone else? Patient reports no desire to harm self or others. Onset of symptoms was August 19, 2021. 11:47 Method Of Arrival: Wheelchair iw 11:47 Acuity: MAICO 3 iw Triage Assessment: 12:13 General: Appears in no apparent distress. Behavior is calm, cooperative. wallace Historical: - Allergies: 11:49 No Known Allergies; iw - Home Meds: 11:50 gabapentin 800 mg Oral tab 1 tab 4 times per day [Active]; aspirin 81 mg Oral chew 1 iw tab once daily [Active]; amlodipine oral [Active]; metoprolol tartrate 25 mg Oral tab [Active]; duloxetine oral [Active]; 12:13 Advair Diskus Inhl [Active]; Spiriva with HandiHaler inhalation [Active]; wallace - PMHx: 11:49 chronic back pain; COPD; Depression; Hypertension; iw - PSHx: 11:49 Appendectomy; Coronary artery bypass graft; iw - Immunization history:: Client reports receiving the 2nd dose of the Covid vaccine. - Social history:: Smoking status: Smoking status: Patient reports the use of cigarette tobacco products, smokes one pack cigarettes per day. Screenin:12 Abuse screen: Denies threats or abuse. Denies injuries from another. Nutritional wallace screening: No deficits noted. Tuberculosis screening: No symptoms or risk factors identified. Fall Risk None identified. Assessment: 12:12 Pain: Complains of pain in back Pain currently is 8 out of 10 on a pain scale. wallace 12:13 Reassessment: pt reported chronic back pain. wallace Vital Signs: 11:47 BP 110 / 66; Pulse 76; Resp 16; Pulse Ox 95% on R/A; Weight 52.16 kg; Height 5 ft. 5 iw in. (165.10 cm); 11:47 Body Mass Index 19.14 (52.16 kg, 165.10 cm) iw ED Course: 11:42 Patient arrived in ED. mr 11:49 Triage completed. iw 11:50 Arm band placed on. iw 11:53 Xin Baker is Primary Nurse. jg9 11:56 Santiago Brand PA is PHCP. jr8 11:56 Jl Lu MD is Attending Physician. jr8 12:12 Patient has correct armband on for positive identification. Placed in gown. Bed in low wallace position. 12:12 No provider procedures requiring assistance completed. wallace 12:20 Patient did not have IV access during this emergency room visit. wallace Administered Medications: 12:22 Drug: Demerol (meperidine) 50 mg Route: IM; Site: right deltoid; wallace 12:22 Follow up: Response: No adverse reaction wallace 12:22 Drug: Ondansetron 4 mg Route: PO; wallace 12:22 Follow up: Response: No adverse reaction wallace Outcome: 12:12 Discharge ordered by . jrSindy 12:20 Discharged to home ambulatory. wallace 12:20 Condition: good 12:20 Discharge instructions given to patient. 12:20 Patient left the ED. wallace Signatures: Kasia Schmidt Irene, RN RN iw Santiago Brand PA PA jr8 Xin Baker jg9 Jyothi Berrios wallace
--- NOTE | 2021-08-19 12:13 | EDPHYS ---
Physician Documentation [facility] Name: Mallory Nash Age: 61 yrs Sex: Female : 1960 Arrival Date: 08/19/2021 Time: 11:42 Bed 4 Private MD: ED Physician Jl Lu HPI: 08/19 12:14 This 61 yrs old Female presents to ER via Wheelchair with complaints of Low o2. jr8 12:14 This is a 61-year-old female that presents to the emergency room for further evaluation jr8 for possible low oxygen saturation. Patient stated that she was at her pain management appointment and during evaluation saw that her oxygenation was low. Patient stated that she feels fine at this time and has no complaints other than her chronic back pain.. Historical: - Allergies: 11:49 No Known Allergies; iw - Home Meds: 11:50 gabapentin 800 mg Oral tab 1 tab 4 times per day [Active]; aspirin 81 mg Oral chew 1 iw tab once daily [Active]; amlodipine oral [Active]; metoprolol tartrate 25 mg Oral tab [Active]; duloxetine oral [Active]; 12:13 Advair Diskus Inhl [Active]; Spiriva with HandiHaler inhalation [Active]; wallace - PMHx: 11:49 chronic back pain; COPD; Depression; Hypertension; iw - PSHx: 11:49 Appendectomy; Coronary artery bypass graft; iw - Immunization history:: Client reports receiving the 2nd dose of the Covid vaccine. - Social history:: Smoking status: Smoking status: Patient reports the use of cigarette tobacco products, smokes one pack cigarettes per day. ROS: 12:14 Eyes: Negative for injury, pain, redness, and discharge, ENT: Negative for injury, jr8 pain, and discharge, Neck: Negative for injury, pain, and swelling, Cardiovascular: Negative for chest pain, palpitations, and edema, Respiratory: Negative for shortness of breath, cough, wheezing, and pleuritic chest pain, Abdomen/GI: Negative for abdominal pain, nausea, vomiting, diarrhea, and constipation, MS/Extremity: Negative for injury and deformity, Skin: Negative for injury, rash, and discoloration, Neuro: Negative for headache, weakness, numbness, tingling, and seizure. 12:14 Back: Positive for pain at rest, pain with movement. Exam: 12:14 Constitutional: This is a well developed, well nourished patient who is awake, alert, jr8 and in no acute distress. Cardiovascular: Regular rate and rhythm with a normal S1 and S2. No gallops, murmurs, or rubs. Normal PMI, no JVD. No pulse deficits. Respiratory: Lungs have equal breath sounds bilaterally, mild wheezing present bilaterally, no increased work of breathing, no retractions or nasal flaring. Abdomen/GI: Soft, non-tender, with normal bowel sounds. No distension or tympany. No guarding or rebound. No evidence of tenderness throughout. Skin: Warm, dry with normal turgor. Normal color with no rashes, no lesions, and no evidence of cellulitis. MS/ Extremity: Pulses equal, no cyanosis. Neurovascular intact. Full, normal range of motion. Neuro: Awake and alert, GCS 15, oriented to person, place, time, and situation. Cranial nerves II-XII grossly intact. Motor strength 5/5 in all extremities. Sensory grossly intact. 12:14 Back: pain, that is moderate, of the low back area, ROM is painful, normal spinal alignment noted, vertebral tenderness, is not appreciated. Vital Signs: 11:47 BP 110 / 66; Pulse 76; Resp 16; Pulse Ox 95% on R/A; Weight 52.16 kg; Height 5 ft. 5 iw in. (165.10 cm); 11:47 Body Mass Index 19.14 (52.16 kg, 165.10 cm) iw MDM: 12:02 Patient medically screened. [facility] 12:11 Data reviewed: vital signs, nurses notes, and as a result, I will discharge patient. jr8 Data interpreted: Pulse oximetry: on room air is 95 %. Interpretation: normal. 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 ED course: Discussed with patient that her oxygen saturation maintained between 95 to 100%. Patient is a chronic COPD patient does not require home oxygen and feels that she is breathing normally at this time. As such there is no need for further work-up for evaluation for shortness of breath or low oxygenation as neither are true at this time and I will discharge her home to follow-up with pain management.. Administered Medications: 12: Drug: Demerol (meperidine) 50 mg Route: IM; Site: right deltoid; wallace 12: Follow up: Response: No adverse reaction wallace 12: Drug: Ondansetron 4 mg Route: PO; wallace 12: Follow up: Response: No adverse reaction wallace Disposition: 18:30 Co-signature as Attending Physician, Jl Lu MD I agree with the assessment and kdr plan of care. Disposition Summary: 08/19/21 12:12 Discharge Ordered Location: Home jr8 Problem: new jr8 Symptoms: have improved jr8 Condition: Stable jr8 Diagnosis - Other chronic pain - Chronic back pain jr8 Followup: jr8 - With: Private Physician - When: 2 - 3 days - Reason: Recheck today's complaints, Continuance of care, Re-evaluation by your physician Discharge Instructions: - Discharge Summary Sheet jr8 - Chronic Back Pain jr8 - Chronic Pain, Adult jr8 Forms: - Medication Reconciliation Form jr8 - Thank You Letter jr8 - Antibiotic Education jr8 - Prescription Opioid Use jr8 Signatures: Jl Lu MD MD kdr Williams, Irene, RN RN Santiago Velarde PA PA jr8 Kristie-Jyothi Murphy
[2021-08-19] MEDS ORDERED: MEPERIDINE HCL 50 MG/ML ONE (12:15)
[2021-08-19] MEDS ORDERED: ONDANSETRON 4 MG (ODT) TAB ONE (12:16)
[2021-08-19 12:30] VITALS: BP 110/66; O2SAT 95
== END 2021-08-19 12:20 | disposition home or self-care (01) ==
LOC: ER 11:38
DX: G89.29 Other chronic pain (principal); I10 Essential (primary) hypertension; J44.9 Chronic obstructive pulmonary disease, unspecified; F17.210 Nicotine dependence, cigarettes, uncomplicated; Z95.1 Presence of aortocoronary bypass graft
CPT/HCPCS: 96372; 99282; J2175

== ENCOUNTER 2021-11-22 11:17 | Inpatient (IN) | payer BC ==
--- OUTSIDE RECORDS SUMMARY | 2021-11-22 11:22 | XMS REPORT | Continuity of Care Document ---
:1960 Author Organization [facility] t Address [address] [place] [address] Care Team Providers Name Role Phone Rajesh BROWN, A Primary Care Physician RAJESH, Jillian Attending Clinician Unavailable Rajesh BROWN, A Attending Clinician FRANCA FLEMING Attending Clinician Unavailable FRANCA FLEMING Admitting Clinician Unavailable Payers Payer Name Policy Type Policy Number Effective Date Expiration Date S ourjessica [facility] - [id number] 2020 00:00:00 OUT OF STATE Problems Condition Condition Condition Status Onset Resolution Last Treating Co mments Source Name Details Category Date Date Treatment Clinician Date Coronary Coronary Disease Active 2020-08 Unive rs artery artery -17 ity of disease disease 00:00: [address] COPD with COPD with Disease Active 2020-08 Uni vers asthma asthma -17 ity of 00:00: [address] Mixed Mixed Disease Active 2020-08 Univers hyperlipid hyperlipid -17 it y of emia emia 00:: [address] Essential Essential Disease Active 2020-08 Uni vers hypertensi hypertensi 1-17 it y of on on 00:00: [address] Chronic Chronic Disease Active 2020-08 Univers back pain back pain -17 ity of 00:00: [place] [address] Medical [place] History of History of Disease Active 2020-08 U nivers skin skin 1-17 ity of cancer cancer 00:00: [address] Atelectasi Atelectasi Disease Active 2016-[address] [facility] of both s of both 09-26 Luke s - lungs lungs 00:00: [facility] 00 [place] Acute Acute Disease Active 2016-[address] [facility] pulmonary pulmonary 09-26 Luke s - insufficie insufficie 00:00: Me dical ncy ncy 00 Center following following thoracic thoracic surgery surgery Postoperat Postoperat Disease Active 2016-[address] gume anemia gume anemia 09-26 Tammy kes - due to due to 00:00: Medical acute acute 00 Center blood loss blood loss Acute Acute Disease Active 2016-[address] [facility] pulmonary pulmonary 09-26 Luke s - edema edema 00:00: [address] S/P CABG x S/P CABG x Disease Active 2016-08 U nivers 3 3 09-26 ity of 00:00: [address] ACBx3 (Dr. GONZALEZx3 ( Disease Active 2016-[address] Cornelio, Cornelio, 09-25 [facility] - 07.27.17) 07.27.17) 00:00: [address] Allergies, Adverse Reactions, Alerts Allergy Allergy Status Severity Reaction(s) Onset Inactive Treating Comm ents Source Name Type Date Date Clinician Chlorhex Drug Active Itching 2016-08 new Univers idine Allergy 09-26 ity of 00:00: [address] [place] DRUG Active High ITCHING 2016-08 Univers IDINE INGREDI 09-26 ity of 00:00: [address] Medical Drug Active Itching 2016-[address] [facility], Allergy 09-26 allergic [facility] - Miscella 00:00: reaction Medica l neous 00 [place] Social History Social Habit Start Date Stop Date Quantity Comments Source Exposure to Not sure [facility] SARS-CoV-2 (event) [facility] Alcohol intake 2021-07-15 2021-07-15 Current University of 00:00:00 00:00:00 non-drinker of [facility] alcohol Branch (finding) Cigarettes smoked 2017-10-26 2017-10-26 Univers ity of current (pack per 00:00:00 00:00:00 ) - Reported Branch Cigarette 2017-10-26 2017-10-26 University of pack-years 00:00:00 00:00:00 [facility] Tobacco use and 2017-10-26 2017-10-26 Former user Universi ty of exposure 00:00:00 00:00:00 [facility] Sex Assigned At [birth year] Universit y of 00:00:00 00:00:00 [facility] Smoking Status Start Date Stop Date Source Former smoker 2017-10-26 00:00:00 2017-10-26 00:00:00 [facility] Medications Ordered Filled Start Stop Current Ordering Indication Dosage Frequency Signature Comments Components Source Medication Medication Date Date Medication? Clinician (SIG) Name Name IBUPROFEN 2020-08 Yes Take by [facility] ers ORAL 1-17 mouth as ity of 09:28: needed. [address] IBUPROFEN 2020-08 Yes Take by [facility] ers ORAL 1-17 mouth as ity of 09:28: needed. [address] IBUPROFEN 2020-08 Yes Take by [facility] ers ORAL 1-17 mouth as ity of 09:28: needed. [address] duloxetine 2020-08 Yes Take by Uni vers HCl 1-17 mouth ity of (DULOXETINE 09[place] [facility] duloxetine 2020-08 Yes Take by Uni vers HCl 1-17 mouth ity of (DULOXETINE 09:28: [place]. [place] [facility] duloxetine 2020-08 Yes Take by Uni vers HCl 1-17 mouth ity of (DULOXETINE 09:28: daily. [place] [address] [place] [address] aspirin 81 2020-08 Yes 81mg Take 81 mg U nivers mg chewable 1-17 by mouth ity of tablet 09:18: daily. [address] albuterol 2020-08 Yes 2.5mg Inhale 2.5 U nivers 2.5 mg /3 1-17 mg every 4 ity of mL (0.083 09:18: (four) [place] %) 33 hours as Medical nebulizer needed for Bran ch solution Wheezing or Shortness of Breath. aspirin 81 2020-08 Yes 81mg Take 81 mg U nivers mg chewable 1-17 by mouth ity of tablet 09:18: daily. [address] albuterol 2020-08 Yes 2.5mg Inhale 2.5 U nivers 2.5 mg /3 1-17 mg every 4 ity of mL (0.083 09:18: (four) [place] %) 33 hours as Medical nebulizer needed for Bran ch solution Wheezing or Shortness of Breath. aspirin 81 2020-08 Yes 81mg Take 81 mg U nivers mg chewable 1-17 by mouth ity of tablet 09:18: daily. [place] 33 Medical Branch albuterol 2020-08 Yes 2.5mg Inhale 2.5 U nivers 2.5 mg /3 1-17 mg every 4 ity of mL (0.083 09:18: (four) [place] %) 33 hours as Medical nebulizer needed for Bran ch solution Wheezing or Shortness of Breath. gabapentin 2020-08 Yes 800mg Take 800 Un mannie 800 mg 1-17 mg by ity of tablet 09:14: mouth 4 [place] 40 (four) Medical times Branch daily. albuterol 2020-08 Yes 2{puff} Inhale 2 U nivers (VENTOLIN 1-17 Puffs ity of HFA) 90 09:14: every 6 [place] mcg/actuati 40 (six) Medical on inhaler hours as Branc h needed for Wheezing or Shortness of Breath. gabapentin 2020-08 Yes 800mg Take 800 Un mannie 800 mg 1-17 mg by ity of tablet 09:14: mouth 4 [place] 40 (four) Medical times Branch daily. albuterol 2020-08 Yes 2{puff} Inhale 2 U nivers (VENTOLIN 1-17 Puffs ity of HFA) 90 09:14: every 6 [place] mcg/actuati 40 (six) Medical on inhaler hours as Branc h needed for Wheezing or Shortness of Breath. gabapentin 2020-08 Yes 800mg Take 800 Un mannie 800 mg 1-17 mg by ity of tablet 09:14: mouth 4 [place] 40 (four) Medical times Branch daily. albuterol 2020-08 Yes 2{puff} Inhale 2 U nivers (VENTOLIN 1-17 Puffs ity of HFA) 90 09:14: every 6 [place] mcg/actuati 40 (six) Medical on inhaler hours as Branc h needed for Wheezing or Shortness of Breath. methylPREDN 2020-08 Yes [id number] Follow [facility] ISolone 4 1-17 package ity of mg tablets 00:00: directions [place] Branch methocarbam 2020-08 Yes [id number] 500mg Take 1 Univers oL 500 mg 1-17 tablet by ity o f tablet 00:00: mouth 4 [place] ([facility]) Medical times [place] daily as needed (muscle pain or spasm). methylPREDN 2020-08 Yes [id number] Follow Univers ISolone 4 1-17 package ity of mg tablets 00:00: directions [facility] Branch methocarbam 2020-08 Yes [id number] 500mg Take 1 Univers oL 500 mg 1-17 tablet by ity o f tablet 00:00: mouth 4 [place] (chi [facility]) Medical times [place] daily as needed (muscle pain or spasm). methylPREDN 2020-08 Yes [id number] Follow Univers ISolone 4 1-17 package ity of mg tablets 00:00: directions [facility] Branch methocarbam 2020-08 Yes [id number] 500mg Take 1 Univers oL 500 mg 1-17 tablet by ity o f tablet 00:00: mouth 4 [place] ([facility]) Medical times [place] daily as needed (muscle pain or spasm). amLODIPine Yes 5mg Take 5 mg Un mannie 5 mg tablet 9-30 by mouth ity of 00:00: daily. [place] [facility] amLODIPine 0 Yes 5mg Take 5 mg Un mannie 5 mg tablet 9-30 by mouth ity of 00:00: daily. [place] [facility] amLODIPine 0 Yes 5mg Take 5 mg Un mannie 5 mg tablet 9-30 by mouth ity of 00:00: daily. [place] [facility] metoprolol Yes 25mg Take 1 Unive rs tartrate 25 1-18 tablet by ity of mg tablet 00:00: mouth 2 [place] (two) Medical times Branch daily. metoprolol 0 Yes 25mg Take 1 Unive rs tartrate 25 1-18 tablet by ity of mg tablet 00:00: mouth 2 [place] (two) Medical times Branch daily. metoprolol 0 Yes 25mg Take 1 Unive rs tartrate 25 1-18 tablet by ity of mg tablet 00:00: mouth 2 [place] (two) Medical times Branch daily. atorvastati 2017-2020- No 40mg Take 1 Uni vers n [...] [address] (VITAMIN 2-04 mg by [facility] - B-1) 100 MG 14:52: mouth Medic al tablet 06 daily. [place] folic acid 2016-08 Yes 1mg QD Take [address] (FOLVITE) 1 2-04 by mouth Luke s - MG tablet 14:52: daily. Medica l 06 Center acetaminoph 2016-08 Yes 1{tbl} Take [address] en-codeine 2-04 tablet by Db s - (TYLENOL 00:00: mouth Medical #3) 300-30 00 every 6 Center mg per (six) tablet hours as needed for Pain. Max Daily Amount: 4 tablets gabapentin 2016-08 Yes 400mg [id number] Take 0.[address] (NEURONTIN) 2-04 [id number] tablets [facility] - 800 MG 00:00: 3D (400 mg Medical tablet 00 total) by Center mouth 3 (three) times daily. metoprolol 2016-08 Yes 25mg Q.5D Take 1 [facility] t (LOPRESSOR) 2-04 tablet (25 Tammy kes - 25 MG 00:00: mg total) Medical tablet 00 by mouth 2 Center (two) times daily. Immunizations Ordered Filled Immunization Date Status Comments [facility] e Immunization Name Name SARS-COV-2 COVID-19 2020-11-15 Completed Unive rsity of PFIZER VACCINE 00:00:00 [facility] SARS-COV-2 COVID-19 2020-11-15 Completed Unive rsity of PFIZER VACCINE 00:00:00 [facility] SARS-COV-2 COVID-19 2020-11-15 Completed Unive rsity of PFIZER VACCINE 00:00:00 [facility] SARS-COV-2 COVID-19 2020-10-25 Completed Unive rsity of PFIZER VACCINE 00:00:00 [facility] SARS-COV-2 COVID-19 2020-10-25 Completed Unive rsity of PFIZER VACCINE 00:00:00 [facility] SARS-COV-2 COVID-19 2020-10-25 Completed Unive rsity of PFIZER VACCINE 00:00:00 [facility] Vital Signs Vital Name Observation Time Observation Value Comments Source Systolic blood 2021-07-15 15:13:00 122 mm[Hg] Univer sity of [facility] Diastolic blood 2021-07-15 15:13:00 56 mm[Hg] Unive rsity of [facility] Heart rate 2021-07-15 15:13:00 71 /min [facility] Body height 2021-07-15 15:13:00 165.1 cm [facility] Body weight 2021-07-15 15:13:00 55.792 kg [facility] BMI 2021-07-15 15:13:00 20.47 kg/m2 [facility] Oxygen saturation 2021-07-15 15:13:00 97 /min [facility] in Arterial blood [facility] by Pulse oximetry Procedures This patient has no known procedures. Encounters Start End Encounter Admission Attending Care Care Encounter Source Date/Time Date/Time Type Type Clinicians Facility Department ID 2021-07-15 2021-07-15 Outpatient R RAJESH [facility]ULTMAN [facility] [id number] [facility] 09:40:00 23:59:00 FIGUEROA cabezas [facility] 2021-07-15 2021-07-15 Hospital Rajesh [facility] [id number] [facility] 09:40:00 23:59:00 Encounter Wondiful A HEALTH [id number] ity of [place] [id number] Ghulam as CHANCE?BLEA [id number] [place] dicmiya BUI 809 [facility] OFFICE BUILDING 2021-07-15 2021-07-15 Office DAFNE Guerra [id number] Univers 08:56:32 09:54:40 Visit Figueroa [facility] [id number] ity of [place] [id number] Ghulam as CHANCE?BLEA [id number] [place] dicmiya BUI 044 [facility] OFFICE BUILDING Results Test Description Test Time Test Comments Results Result [facility] e Comments RAD, CHEST, PA OR 2017-08-01 Reason for FINAL REPORT PATIENT AP, 1 VIEW 09:05:00 exam:->post-op ID: [id number] Chest one view. Clinical history: post-op Comparison: July 28, 2017 Discussion: A frontal chest is provided. Cardiomediastinal contours are unchanged. Right IJ line has been removed. There is patchy retrocardiac opacity is slightly improved since the previous exam. A small left effusion is present. No pneumothorax. Signed: Hemant Paige Verified Date/Time: 08/01/2017 09:05:03 Reading Location: [facility] Radiology Reading Room ESIUM 2017-08-01 06:58:00 Test Item Value Reference Range Interpretation Comme nts MAGNESIUM (BEAKER) (test code = 627) 1.8 mg/dL 1.6-2.6 CBC W/PLT COUNT & AUTO [id number] 05:44:00 Test Item Value Reference Range Interpretation [...] = 2801) CBC W/PLT COUNT & AUTO [id number] 07:13:00 Test Item Value Reference Range Interpretation [...] 0-1 PERCENT (BEAKER) (test code = 2801) [id number] 04:08:00 Test Item Value Reference Range Interpretation Comments MAGNESIUM (BEAKER) (test code = 1.3 mg/dL 1.6-2.6 L 627) BASIC METABOLIC [id number] 04:08:00 Test Item Value Reference Range Interpretation [...] NOT APPLICABLE FOR DIALYSIS PATIEN TS. POCT-GLUCOSE [id number] 12:53:00 Test Item Value Reference Range Interpretation Comments POC-GLUCOSE METER 192 mg/dL 70-110 H TESTED AT [facility] (test code = [place] 15[address]) [id number] POCT-GLUCOSE [id number] 07:54:00 Test Item Value Reference Range Interpretation Comments POC-GLUCOSE METER 129 mg/dL 70-110 H TESTED AT [facility] 67[address] [facility] (test code = KARINA [place] 1538) [id number] BASIC METABOLIC [id number] 05:37:00 Test Item Value Reference Range Interpretation [...] PATIEN TS. CBC W/PLT COUNT & AUTO [id number] 05:07:00 Test Item Value Reference Range Interpretation [...] 417) IMMATURE GRANULOCYTES-RELATIVE 1 % 0-1 PERCENT (AKER) (test code = 2801) POCT-GLUCOSE [id number] 21:03:00 Test Item Value Reference Range Interpretation Comments POC-GLUCOSE METER 239 mg/dL 70-110 H TESTED AT [place] [address] ([facility]) (test code = [facility] 1538) [address] POCT-GLUCOSE [id number] 17:20:00 Test Item Value Reference Range Interpretation Comments POC-GLUCOSE METER 201 mg/dL 70-110 H TESTED AT [place] [address] ([facility]) (test code = [facility] 1538) [address] HEMOGLOBIN AND [id number] 16:41:00 Test Item Value Reference Range Interpretation Comments HEMOGLOBIN ([facility]) (test code = 9.8 GM/DL 11.2-15.7 L 410) HEMATOCRIT ([facility]) (test code = 29.3 % 34.1-44.9 L 411) Draw after transfusion has been completed.POCT-GLUCOSE [id number] 12:59:00 Test Item Value Reference Range Interpretation Comments POC-GLUCOSE METER 133 mg/dL 70-110 H TESTED AT [place] [address] ([facility]) (test code = [facility] 1538) [id number] URINE [id number] 11:53:00 Test Item Value Reference Range Interpretation Comments CULTURE ([facility]) (test code = 1095) No growth POCT-GLUCOSE [id number] 09:34:00 Test Item Value Reference Range Interpretation Comments POC-GLUCOSE METER 97 mg/dL 70-110 TESTED AT [place] [address] ([facility]) (test code = [facility] [address] 1538) CBC W/PLT COUNT & AUTO [id number] 05:55:00 Test Item Value Reference Range Interpretation [...] (BEAKER) (test code = 2801) BASIC METABOLIC [id number] 05:53:00 Test Item Value Reference Range Interpretation [...] NOT APPLICABLE FOR DIALYSIS PATIEN TS. POCT-GLUCOSE [id number] 21:23:00 Test Item Value Reference Range Interpretation Comments POC-GLUCOSE METER 142 mg/dL 70-110 H TESTED AT [facility] 6720 (BEAKER) (test code = [place]INA [place] 1538) [address] RAD, CHEST, 1 VIEW, NON [id number] 15:31:00Reason for exam:->post ct removalFINAL REPORT TECHNIQUE: [...] Ló[place] Verified Date/Time: 07/28/2017 15:31:00 Reading Location: [facility] Radiology Reading Room POCT-GLUCOSE [id number] 12:12:00 Test Item Value Reference Range Interpretation Comments POC-GLUCOSE METER 100 mg/dL 70-110 TESTED AT [facility] 6720 (BEAKER) (test code = KARINA Betts [place] 1538) [id number] POCT-GLUCOSE [id number] 06:41:00 Test Item Value Reference Range Interpretation Comments POC-GLUCOSE METER 143 mg/dL 70-110 H TESTED AT [facility] 6720 (BEAKER) (test code = KARINA Betts [facility] 1538) [address] RAD, CHEST, 1 VIEW, NON [id number] 05:13:00Reason for exam:->Post opShould this be performed [...] MDReport Verified Date/Time: 07/28/2017 05:13:19 Reading Location: [facility] B1 C013[facility] CT Body Reading Room BLOOD GAS, [id number] 05:03:00 Test Item Value Reference Range Interpretation [...] (BEAKER) (test code = 1819) 36.0 % [id number] 04:52:00 Test Item Value Reference Range Interpretation [...] is 2.5-3.5 for patients with mechanical heart valves.[id number] 04:39:00 Test Item Value Reference Range Interpretation Comments MAGNESIUM (BEAKER) (test code = 1.9 mg/dL 1.6-2.6 627) BASIC METABOLIC [id number] 04:39:00 Test Item Value Reference Range Interpretation [...] PATIEN TS. CBC W/PLT COUNT & AUTO [id number] 04:24:00 Test Item Value Reference Range Interpretation [...] 0-1 PERCENT (BEAKER) (test code = 2801) [id number] 01:03:00 Test Item Value Reference Range Interpretation Comments POTASSIUM (BEAKER) (test code = 4.0 meq/L 3.5-5.1 379) [id number] 01:03:00 Test Item Value Reference Range Interpretation Comments MAGNESIUM (BEAKER) (test code = 2.0 mg/dL 1.6-2.6 627) POCT-GLUCOSE [id number] 01:01:00 Test Item Value Reference Range Interpretation Comments POC-GLUCOSE METER 150 mg/dL 70-110 H TESTED AT [facility] 6720 (BEAKER) (test code = [place]INA [place] 1538) [id number] HEMOGLOBIN AND [id number] 00:51:00 Test Item Value Reference Range Interpretation Comments HEMOGLOBIN (BEAKER) (test code = 8.3 GM/DL 11.2-15.7 L 410) HEMATOCRIT (BEAKER) (test code = 24.0 % 34.1-44.9 L 411) CALCIUM, [id number] 00:48:00 Test Item Value Reference Range Interpretation Comments CALCIUM IONIZED (BEAKER) (test 1.25 mmol/L 1.12-1.27 code = 698) PH, BLOOD (BEAKER) (test code = 7.39 1810) BLOOD GAS, [id number] 20:03:00 Test Item Value Reference Range Interpretation [...] (test code = 1819) 32.0 % POCT-GLUCOSE [id number] 18:26:00 Test Item Value Reference Range Interpretation Comments POC-GLUCOSE METER 169 mg/dL 70-110 H TESTED AT [facility] 6720 (BEAKER) (test code = [place] [address]38) [address] BLOOD GAS, [id number] 16:32:00 Test Item Value Reference Range Interpretation [...] code = 1819) 40.0 % HEMOGLOBIN AND [id number] 15:45:00 Test Item Value Reference Range Interpretation Comments HEMOGLOBIN (BEAKER) (test code = 8.9 GM/DL 11.2-15.7 L 410) HEMATOCRIT (BEAKER) (test code = 25.6 % 34.1-44.9 L 411) FACTOR 10 [id number] 15:30:00 Test Item Value Reference Range Interpretation Comments FACTOR X ACTIVITY (BEAKER) (test code 79.0 % 70.0-120.0 = 662) [id number] 13:47:00 Test Item Value Reference Range Interpretation Comments FIBRINOGEN LEVEL (BEAKER) (test 567 mg/dl 225-434 H code = 658) PROTHROMBIN [id number] 13:47:00 Test Item Value Reference Range Interpretation Comments PROTIME (BEAKER) (test code = 17.5 seconds 11.7-14.7 H 759) INR (BEAKER) (test code = 370) 1.4 <=5.9 RECOMMENDED COUMADIN/WARFARIN INR THERAPY RANGESSTANDARD DOSE: 2.0 - 3.0 Includes: PROPHYLAXIS forvenous thrombosis, systemic embolization; TREATMENT for venous thrombosis and/or pulmonary embolus.HIGH RISK: Target INR is 2.5-3.5 for patients with mechanical heart valves.[id number] 13:47:00 Test Item Value Reference Range Interpretation Comments PARTIAL THROMBOPLASTIN TIME 35.0 seconds 22.5-36.0 (BEAKER) (test code = 760) RAD, CHEST, 1 VIEW, NON [id number] 13:16:00Reason for exam:->Post OpShould this be performed [...] effusion. Status post median sternotomy. Signed: Hemant Paigeeport Verified Date/Time: 07/27/2017 13:16:03 Reading Location: [address] Consult Reading Room Electronicallysigned by: HEMANT [...] = 1414) CBC W/PLT COUNT & AUTO [id number] 12:37:00 Test Item Value Reference Range Interpretation [...] 0-1 PERCENT (BEAKER) (test code = 2801) [id number] 12:19:00 Test Item Value Reference Range Interpretation Comments MAGNESIUM (BEAKER) (test code = 2.9 mg/dL 1.6-2.6 H 627) COMPREHENSIVE METABOLIC [id number] 12:19:00 Test Item Value Reference Range Interpretation [...] DIALYSIS PATIEN TS. LACTIC ACID, ARTERIAL, WHOLE [id number] 12:14:00 Test Item Value Reference Range Interpretation Comments LACTATE BLOOD ARTERIAL (2) 0.9 mmol/L 0.5-2.2 (BEAKER) (test code = 2874) Effective 12/31/2015: Units/Reference Range ChangeNew: 0.5-2.2 mmol/L Previous: 5-20 mg/dLOXYGEN SATURATION, [id number] 11:46:00 Test Item Value Reference Range Interpretation Comments O2 SATURATION (MEASURED) (BEAKER) 81.7 % (test code = 1455) BLOOD GAS, [id number] 11:44:00 Test Item Value Reference Range Interpretation [...] code = 1819) 60.0 % SODIUM NA-STAT [id number] 11:44:00 Test Item Value Reference Range Interpretation Comments SODIUM (BEAKER) (test code = 381) 130 meq/L 135-148 L GLUCOSE-STAT [id number] 11:44:00 Test Item Value Reference Range Interpretation Comments GLUCOSE RANDOM (BEAKER) (test code 194 mg/dL 70-110 H = 652) HGB/HCT (H&H) - STAT [id number] 11:44:00 Test Item Value Reference Range Interpretation Comments HEMOGLOBIN (BEAKER) (test code = 8.1 g/dL 12.0-15.0 L 410) HEMATOCRIT (BEAKER) (test code = 24.0 % 36.0-45.0 L 411) FILTER IONIZED [id number] 11:44:00 Test Item Value Reference Range Interpretation Comments FILTER IONIZED CALCIUM (BEAKER) 1.35 nnol/L (test code = 1854) Reference Range: No NormalsPOTASSIUM-STAT [id number] 11:43:00 Test Item Value Reference Range Interpretation [...] MM 55.0-65.0 (test code = 1413) PLATELET [id number] 11:08:00 Test Item Value Reference Range Interpretation Comments PLATELET COUNT (BEAKER) (test 142 K/CU MM 150-450 L code = 756) CALCIUM, [id number] 10:35:00 Test Item Value Reference Range Interpretation Comments CALCIUM IONIZED (BEAKER) (test 0.91 mmol/L 1.12-1.27 L code = 698) PH, BLOOD (BEAKER) (test code = 7.31 1810) BLOOD GAS, [id number] 10:35:00 Test Item Value Reference Range Interpretation [...] code = 1819) 100.0 % SODIUM NA-STAT [id number] 10:35:00 Test Item Value Reference Range Interpretation Comments SODIUM (BEAKER) (test code = 381) 130 meq/L 135-148 L GLUCOSE-STAT [id number] 10:35:00 Test Item Value Reference Range Interpretation Comments GLUCOSE RANDOM (BEAKER) (test code 194 mg/dL 70-110 H = 652) HGB/HCT (H&H) - STAT [id number] 10:35:00 Test Item Value Reference Range Interpretation Comments HEMOGLOBIN (BEAKER) (test code = 10.3 g/dL 12.0-15.0 L 410) HEMATOCRIT (BEAKER) (test code = 30.0 % 36.0-45.0 L 411) POTASSIUM-STAT [id number] 10:34:00 Test Item Value Reference Range Interpretation Comments POTASSIUM (BEAKER) (test code = 5.1 meq/L 3.6-5.5 379) [id number] 10:26:00 Test Item Value Reference Range Interpretation Comments ACTIVATED CLOTTING TIME 131 sec TEST ED AT [place] [address] ([facility]) (test code = [place] [address]) [id number] 10:26:00 Test Item Value Reference Range Interpretation Comments ACTIVATED CLOTTING TIME 521 sec TEST ED AT [place] [address] ([facility]) (test code = [place] [address]) [id number] 10:26:00 Test Item Value Reference Range Interpretation Comments ACTIVATED CLOTTING TIME 521 sec TEST ED AT [place] [address] ([facility]) (test code = [place] [address]) [address] [id number] 10:26:00 Test Item Value Reference Range Interpretation Comments ACTIVATED CLOTTING TIME 505 sec TEST ED AT [place] [address] ([facility]) (test code = [place] [address]) [id number] 10:17:00 Test Item Value Reference Range Interpretation Comments FIBRINOGEN LEVEL (BEAKER) (test 536 mg/dl 225-434 H code = 658) [id number] 10:17:00 Test Item Value Reference Range Interpretation Comments PARTIAL THROMBOPLASTIN TIME 38.7 seconds 22.5-36.0 H (BEAKER) (test code = 760) PROTHROMBIN [id number] 10:16:00 Test Item Value Reference Range Interpretation [...] platelet dysfunction (BEAKER) (test code = 2173) [id number] Yuri Quijano M.D. (BEAKER) (test code = (electonic signature) 3218) PLATELET COUNT AGG 410 K/CU MM 150-450 (BEAKER) (test code = 2656) for patients on clopidogrel in past two weeksCALCIUM, [id number] 09:46:00 Test Item Value Reference Range Interpretation Comments CALCIUM IONIZED (BEAKER) (test 1.41 mmol/L 1.12-1.27 H code = 698) PH, BLOOD (BEAKER) (test code = 7.30 1810) BLOOD GAS, [id number] 09:45:00 Test Item Value Reference Range Interpretation [...] code = 1819) 100.0 % SODIUM NA-STAT [id number] 09:45:00 Test Item Value Reference Range Interpretation Comments SODIUM (BEAKER) (test code = 381) 124 meq/L 135-148 L POTASSIUM-STAT [id number] 09:45:00 Test Item Value Reference Range Interpretation Comments POTASSIUM (BEAKER) (test code = 5.8 meq/L 3.6-5.5 H 379) GLUCOSE-STAT [id number] 09:45:00 Test Item Value Reference Range Interpretation Comments GLUCOSE RANDOM (BEAKER) (test code 172 mg/dL 70-110 H = 652) HGB/HCT (H&H) - STAT [id number] 09:45:00 Test Item Value Reference Range Interpretation Comments HEMOGLOBIN (BEAKER) (test code = 8.6 g/dL 12.0-15.0 L 410) HEMATOCRIT (BEAKER) (test code = 25.0 % 36.0-45.0 L 411) BLOOD GAS, [id number] 09:31:00 Test Item Value Reference Range Interpretation [...] code = 1819) 75.0 % SODIUM NA-STAT [id number] 09:31:00 Test Item Value Reference Range Interpretation Comments SODIUM (BEAKER) (test code = 381) 124 meq/L 135-148 L GLUCOSE-STAT [id number] 09:31:00 Test Item Value Reference Range Interpretation Comments GLUCOSE RANDOM (BEAKER) (test code 162 mg/dL 70-110 H = 652) HGB/HCT (H&H) - STAT [id number] 09:31:00 Test Item Value Reference Range Interpretation Comments HEMOGLOBIN (BEAKER) (test code = 8.8 g/dL 12.0-15.0 L 410) HEMATOCRIT (BEAKER) (test code = 26.0 % 36.0-45.0 L 411) POTASSIUM-STAT [id number] 09:31:00 Test Item Value Reference Range Interpretation Comments POTASSIUM (BEAKER) (test code = 6.2 meq/L 3.6-5.5 HH 379) BLOOD GAS, [id number] 09:09:00 Test Item Value Reference Range Interpretation [...] (test code = 1819) 70.0 % GLUCOSE-STAT [id number] 09:09:00 Test Item Value Reference Range Interpretation Comments GLUCOSE RANDOM (BEAKER) (test code 150 mg/dL 70-110 H = 652) SODIUM NA-STAT [id number] 09:08:00 Test Item Value Reference Range Interpretation Comments SODIUM (BEAKER) (test code = 381) 124 meq/L 135-148 L POTASSIUM-STAT [id number] 09:08:00 Test Item Value Reference Range Interpretation Comments POTASSIUM (BEAKER) (test code = 5.5 meq/L 3.6-5.5 379) HGB/HCT (H&H) - STAT [id number] 09:08:00 Test Item Value Reference Range Interpretation Comments HEMOGLOBIN (BEAKER) (test code = 7.6 g/dL 12.0-15.0 L 410) HEMATOCRIT (BEAKER) (test code = 22.0 % 36.0-45.0 L 411) POTASSIUM-STAT [id number] 08:00:00 Test Item Value Reference Range Interpretation Comments POTASSIUM (BEAKER) (test code = 3.8 meq/L 3.6-5.5 379) CALCIUM, [id number] 08:00:00 Test Item Value Reference Range Interpretation Comments CALCIUM IONIZED (BEAKER) (test 1.15 mmol/L 1.12-1.27 code = 698) PH, BLOOD (BEAKER) (test code = 7.38 1810) BLOOD GAS, [id number] 08:00:00 Test Item Value Reference Range Interpretation [...] code = 1819) 100.0 % SODIUM NA-STAT [id number] 08:00:00 Test Item Value Reference Range Interpretation Comments SODIUM (BEAKER) (test code = 381) 130 meq/L 135-148 L GLUCOSE-STAT [id number] 08:00:00 Test Item Value Reference Range Interpretation Comments GLUCOSE RANDOM (BEAKER) (test code 134 mg/dL 70-110 H = 652) HGB/HCT (H&H) - STAT [id number] 08:00:00 Test Item Value Reference Range Interpretation Comments HEMOGLOBIN (BEAKER) (test code = 10.4 g/dL 12.0-15.0 L 410) HEMATOCRIT (BEAKER) (test code = 31.0 % 36.0-45.0 L 411) RAD, CHEST, 1 VIEW, NON [id number] 07:24:00Reason for exam:->pre opShould this be performed at the bedside?->YesFINAL REPORT Chest one view. Clinical history: pre op Comparison: No priors Discussion: A frontal chest is provided. The cardiac and mediastinal contours are normal. There is no pneumothorax, henrietta pulmonary edema, consolidation or significant pleural effusion. The bony structures are unremarkable. Signed: Hemant Paige Verified Date/Time: 07/27/2017 07:24:49 ReadingLocation: [facility] Electronically signed by: HEMANT PAIGE M.D. on 07:24 [id number] 04:33:00 Test Item Value Reference Range Interpretation [...] 2.5-3.5 for patients with mechanical heart valves.PROTHROMBIN [id number] 04:32:00 Test Item Value Reference Range Interpretation [...] 0-0 (BEAKER) (test code = 413) HEMOGLOBIN [id number] 20:12:00 Test Item Value Reference Range Interpretation Comments HEMOGLOBIN A1C (BEAKER) (test code = 6.6 % 4.3-6.1 H 368) PLATELET AGGREGATION: FUNCTION [id number] 18:20:00 Test Item Value Reference Range Interpretation Comments WEAK ADP 43 % 60-91 L RESULT(BEAKER) (test code = 2135) PLATELET FUNCTION 40-49% indicates SCREEN INTERP moderate platelet (BEAKER) (test code = dysfunction 2173) [id number] Yuri Quijano M.D. (BEAKER) (test code = (electonic signature) 8496) PLATELET COUNT AGG 417 K/CU MM 150-450 (BEAKER) (test code = 9940) for patients on clopidogrel in past two weeksLIPID [id number] 13:14:00 Test Item Value Reference Range Interpretation [...] 130-159 High 160-189 Very High >=190BASIC METABOLIC [id number] 09:12:00 Test Item Value Reference Range Interpretation [...] 697) EGFR (BEAKER) (test 68 mL/min/1.73 ESTIMA KLOE GFR IS code = 1092) sq m NOT ACCURATE CREATININE CLEARANCE IN PREDICTING GLOMERULAR FILTRATION RATE . ESTIMATED GFR I S NOT APPLICABLE FOR DIALYSIS PATIEN TS. HEPATIC FUNCTION [id number] 09:12:00 Test Item Value Reference Range Interpretation [...] slightly (test code = 347) hemolyzed PROTHROMBIN [id number] 05:58:00 Test Item Value Reference Range Interpretation [...] % 0-1 PERCENT (BEAKER) (test code = 5858)
[2021-11-22] MEDS ORDERED: IPRATROPIUM BROM 0.5MG/2.5ML ONE ×2 (11:38→11:47)
[2021-11-22] MEDS ORDERED: LEVALBUTEROL 1.25 MG/3 ML NEB ONE (11:38)
[2021-11-22] MEDS ORDERED: MAGNESIUM SULFATE 1 gm IVPB 1 GM/100 ML BAG IV ONE (11:47)
[2021-11-22] MEDS ORDERED: dexAMETHasone 10 MG/ML VIAL ONE (11:47)
[2021-11-22] MEDS ORDERED: ALBUTEROL 2.5 MG/3 ML NEB SOL ONE (11:47)
[2021-11-22] MEDS ORDERED: HYDROCODONE/CHLORPHEN 5 ML/OSYR ONE (11:47)
[2021-11-22 11:57] LABS: Absolute Lymphocytes (CBC) 0.8 K/uL (0.7-4.9); Hematocrit 44.5 % (36.0-45.0); Lymphocytes % 10.4 % (15.3-44.8); MPV 7.9 fL (7.6-11.3); RBC Red Blood Cell Count 4.51 M/uL (3.86-4.86)
[2021-11-22 12:02] LABS: Protime INR 0.96
--- NOTE | 2021-11-22 12:07 | RAD REPORT ---
EXAM DESCRIPTION: RAD - Chest Single View - 11/22/2021 11:57 am CLINICAL HISTORY: Cough;SOB COMPARISON: Chest Single View dated 04/28/2021; Chest Single View dated 07/29/2019; Chest Pa And Lat ( 2 Views) dated 10/09/2018; Chest Pa And Lat (2 Views) dated 10/08/2018 FINDINGS: Lines: None. Lungs: Patchy airspace disease scattered throughout the left lung is noted. Pleural: No significant pleural effusions or pneumothorax. Cardiac: The heart size is within normal limits. Bones: No acute fractures. Sternotomy. Other: IMPRESSION: Patchy airspace disease remains in the left lung possibly representing pneumonia.
[2021-11-22 12:13] LABS: Albumin 3.5 g/dL (3.4-5.0); Bilirubin Total 0.7 mg/dL (0.2-1.0); Protein, Total 8.3 g/dL (6.4-8.2)
[2021-11-22] MEDS ORDERED: CEFTRIAXONE 1000 MG/VIAL ONE (12:50)
[2021-11-22] MEDS ORDERED: NA CHLORIDE 0.9% 500 ML ONE (12:51)
[2021-11-22] MEDS ORDERED: NA CHLORIDE 0.9% 250 ML ONE (12:51)
[2021-11-22] MEDS ORDERED: NA CHLORIDE 0.9% 100 ML IV ONE (12:51)
[2021-11-22] MEDS ORDERED: AZITHROMYCIN 500 MG INJ IVPB ONE (12:51)
[2021-11-22 14:47] LABS: SARS-COV-2 RT PCR NEGATIVE (NEGATIVE)
--- NOTE | 2021-11-22 14:58 | ER ---
Nurse's Notes [facility] Name: Mallory Nash Age: 61 yrs Sex: Female : 1960 Arrival Date: 11/22/2021 Time: 11:20 Bed 6 Private MD: Renetta Morillo H Diagnosis: Pneumonia, unspecified organism;COPD/ Chronic obstructive pulmonary disease with (acute) exacerbation Presentation: 11/22 11:31 Chief complaint: Patient states: "I've been weak and SOB for two days.". Coronavirus ab2 screen: Vaccine status: Patient reports receiving the 2nd dose of the covid vaccine. Client denies travel out of the [place] in the last 14 days. At this time, the client does not indicate any symptoms associated with coronavirus-19. Coronavirus screen: cough unrelated to allergies, difficulty breathing, shortness of breath, Client presents with at least one sign or symptom that may indicate coronavirus-19. At this time, the client does not indicate any symptoms associated with coronavirus-19. Ebola Screen: Patient negative for fever greater than or equal to 101.5 degrees Fahrenheit, and additional compatible Ebola Virus Disease symptoms Patient denies exposure to infectious person. Patient denies travel to an Ebola-affected area in the 21 days before illness onset. No symptoms or risks identified at this time. Initial Sepsis Screen: Does the patient meet any 2 criteria? RR > 20 per min. HR > 90 bpm. Does the patient have a suspected source of infection? No. Patient's initial sepsis screen is negative. Risk Assessment: Do you want to hurt yourself or someone else? Patient reports no desire to harm self or others. Onset of symptoms is unknown. 11:31 Method Of Arrival: Ambulatory ab2 11:31 Acuity: MAICO 3 ab2 Triage Assessment: 11:34 General: Appears in no apparent distress. uncomfortable, Behavior is anxious. ab2 Respiratory: Reports shortness of breath cough that is. 11:50 Respiratory: Onset: The symptoms/episode began/occurred yesterday, the patient has jh6 moderate shortness of breath. Historical: - Allergies: 11:34 No Known Allergies; ab2 - PMHx: 11:34 chronic back pain; COPD; Depression; Hypertension; ab2 - PSHx: 11:34 Appendectomy; Coronary artery bypass graft; ab2 - Immunization history:: Adult Immunizations up to date. - Social history:: Smoking status: Patient reports the use of cigarette tobacco products, smokes one pack cigarettes per day. Screenin:49 Abuse screen: Denies threats or abuse. Nutritional screening: No deficits noted. jh6 Tuberculosis screening: No symptoms or risk factors identified. Fall Risk IV access (20 points). Assessment: 11:34 General: Appears in no apparent distress. uncomfortable, Behavior is calm, cooperative, ab2 appropriate for age. Pain: Denies pain. Respiratory: Airway is patent Respiratory effort is labored, 11:48 Cardiovascular: Reports shortness of breath, Heart tones present Capillary refill < 3 jh6 seconds Rhythm is irregular. 12:28 General: Appears uncomfortable, Behavior is calm, cooperative. Neuro: Level of ww Consciousness is awake, alert, obeys commands, Oriented to person, place, time, situation, Speech is normal. Respiratory: Airway is patent. 13:28 Reassessment: Patient appears in no apparent distress at this time. No changes from ww previously documented assessment. Patient and/or family updated on plan of care and expected duration. Pain level reassessed. Patient is alert, oriented x 3, equal unlabored respirations, skin warm/dry/pink. 14:38 Reassessment: Patient and/or family updated on plan of care and expected duration. Pain ww level reassessed. Patient is alert, oriented x 3, equal unlabored respirations, skin warm/dry/pink. Ambulated patient to restroom per patients request. When back in bed O2 dropped to 71% on room air. 15:34 Reassessment: Patient appears in no apparent distress at this time. Patient and/or ww family updated on plan of care and expected duration. Pain level reassessed. Patient is alert, oriented x 3, equal unlabored respirations, skin warm/dry/pink. Patient states feeling better. 16:33 Reassessment: Patient appears in no apparent distress at this time. No changes from ww previously documented assessment. Patient and/or family updated on plan of care and expected duration. Pain level reassessed. Patient is alert, oriented x 3, equal unlabored respirations, skin warm/dry/pink. 17:25 Reassessment: Patient appears in no apparent distress at this time. No changes from ww previously documented assessment. Patient and/or family updated on plan of care and expected duration. Pain level reassessed. Patient is alert, oriented x 3, equal unlabored respirations, skin warm/dry/pink. sleeping in bed. 18:35 Reassessment: Patient appears in no apparent distress at this time. No changes from previously documented assessment. Patient and/or family updated on plan of care and expected duration. Pain level reassessed. Patient is alert, oriented x 3, equal unlabored respirations, skin warm/dry/pink. Dr. Levine at bedside. 19:29 Reassessment: attempted to call report to floor, nurse unavailable. 5 Vital Signs: 11:31 BP 140 / 49; Pulse 98; Resp 26; Temp 98.8; Pulse Ox 85% on R/A; Weight 49.9 kg; Height ab2 5 ft. 5 in. (165.10 cm); Pain 5/10; 11:58 BP 142 / 64; Pulse 100; Resp 26; Pulse Ox 100% on Nebulizer Mask; Pain 10/10; jh6 13:29 BP 132 / 52; Pulse 96; Resp 20; Pulse Ox 97% on 1 lpm NC; ww 14:39 Pulse Ox 71% on R/A; ww 16:30 BP 131 / 50; Pulse 87; Resp 19; Pulse Ox 100% on 2 lpm NC; ww 17:30 BP 140 / 65; Pulse 94; Resp 20; Pulse Ox 99% on 2 lpm NC; ww 18:00 BP 146 / 66; Pulse 92; Resp 21; Pulse Ox 100% on 2 lpm NC; ww 19:27 BP 133 / 63; Pulse 93; Resp 21; Pulse Ox 98% on 2 lpm NC; 5 11:31 Body Mass Index 18.30 (49.90 kg, 165.10 cm) ab2 14:39 after ambulation to restroom NIH Stroke Scale Scores: 11:49 NIHSS Score: 0 [facility] ED Course: 11:20 Patient arrived in ED. mr 11:20 Renetta Morillo DO is Private Physician. mr 11:28 Niels Carreno NP is PHCP. pm1 11:28 Dagoberto Sim MD is Attending Physician. pm1 11:33 Triage completed. ab2 11:34 Arm band placed on right wrist. ab2 11:46 Hastedt, Xin, RN is Primary Nurse. jh6 11:49 Inserted saline lock: 20 gauge in right antecubital area, using aseptic technique. jh6 Blood collected. 11:49 Initial lab(s) drawn, by ED staff, sent to lab. First set of blood cultures drawn EKG jh6 done, by ED staff, reviewed by Renetta Morillo DO X-ray(s) taken. 11:59 Chest Single View XRAY In Process Unspecified. EDMS 12:00 No provider procedures requiring assistance completed. jh6 12:10 Second set of blood cultures drawn by in. jw7 14:57 Cristina Levine MD is Hospitalizing Provider. pm1 19:16 Primary Nurse role handed off by Xin Vasquez, RN mw2 19:42 Patient has correct armband on for positive identification. Placed in gown. Bed in low sm5 position. Call light in reach. Side rails up X2. athletic monitor on. Pulse ox on. NIBP on. 19:43 Patient admitted, IV remains in place. 5 Administered Medications: 11:59 Drug: Albuterol - atroVENT (ipratropium) (3:1) (2.5 mg - 0.5 mg) 3 ml Route: Nebulizer; ww 11:59 Drug: Tussionex Pennkinetic ER (chlorpheniramine-hydrocodone) Suspension 5 ml Route: PO;ww 12:00 Drug: Decadron (dexamethasone) 10 mg Route: IM; Site: left gluteus; ww 12:00 Drug: Magnesium Sulfate 1 grams Route: IVPB; Infused Over: 1 hrs; Site: right ww antecubital; 13:08 Drug: Rocephin (cefTRIAXone) 1 grams Route: IV; Rate: calculated rate; Site: right ww antecubital; 13:08 Drug: NS 0.9% 500 ml Route: IV; Rate: bolus; Site: right antecubital; ww 13:22 Drug: AZITHromycin 500 mg Route: IVPB; Infused Over: 1 hrs; Site: right antecubital; Outcome: 14:57 Decision to Hospitalize by Provider. pm1 19:43 Admitted to Med/surg accompanied by nurse, via wheelchair, with oxygen, with chart. 5 19:43 Condition: stable 19:43 Instructed on the need for admit. 19:43 Patient left the ED. sm5 NIH Stroke Scale - NIH Stroke Score Date: 11/22/2021 Time: 11:49 Total Score = 0 1a. Level of Consciousness (LOC) - 0(Alert) 1b. Level of Consciousness (LOC) (Month \\T\\ Age) - 0(Both) 1c. LOC Commands (Open \\T\\ Closes Eyes/Certified Pediatric Nurse Practitioner) - 0(Both) 2. Best Gaze (Lateral Gaze Paresis) - 0(Normal) 3. Visual Field Loss - 0(No visual loss) 4. Facial Palsy - 0(Normal) 5a. Left Arm: Motor (10-second hold) - 0(No drift) 5b. Right Arm: Motor (10-second hold) - 0(No drift) 6a. Left Leg: Motor (5-second hold - always test supine) - 0(No drift) 6b. Right Leg: Motor (5-second hold - always test supine) - 0(No drift) 7. Limb Ataxia (finger/nose \\T\\ heel/blas - test with eyes open) - 0(Absent) 8. Sensory Loss (pinprick arms/legs/face) - 0(Normal) 9. Best Language: Aphasia (description/naming/reading) - 0(No aphasia) 10. Dysarthria (speech clarity - read or repeat words) - 0(Normal) 11. Extinction and Inattention (visual/tactile/auditory/spatial/personal) - 0(No abnormality) Initials: 6 Signatures: Dispatcher [employer] LUCY Brayan Kasia CarrenoNiels, ACID CUTTER ACID CUTTER pm1 Norma Sylvester 2 Xin Vasquez RN RN 6 Tresa Young RN RN 5 Niki Santillan, Maximino Gramajo RN, Jodi 7
--- NOTE | 2021-11-22 14:58 | EDPHYS ---
Physician Documentation [facility] Name: Mallory Nash Age: 61 yrs Sex: Female : 1960 Arrival Date: 11/22/2021 Time: 11:20 Bed 6 Private MD: Renetta Morillo H ED Physician Dagoberto Sim HPI: 11/22 11:34 This 61 yrs old Female presents to ER via Ambulatory with complaints of Breathing pm1 Difficulty. 11:34 The patient has shortness of breath at rest. Onset: The symptoms/episode began/occurred pm1 2 day(s) ago. Duration: The symptoms are continuous, and are steadily getting worse. The patient's shortness of breath is aggravated by nothing, is alleviated by nothing. Associated signs and symptoms: Pertinent positives: productive cough, Pertinent negatives: chest pain, fever. Severity of symptoms: in the emergency department the symptoms are worse. The patient has experienced similar episodes in the past, a few times. The patient has not recently seen a physician, the patient's primary care provider is Dr. Aiken. Historical: - Allergies: 11:34 No Known Allergies; ab2 - PMHx: 11:34 chronic back pain; COPD; Depression; Hypertension; ab2 - PSHx: 11:34 Appendectomy; Coronary artery bypass graft; ab2 - Immunization history:: Adult Immunizations up to date. - Social history:: Smoking status: Patient reports the use of cigarette tobacco products, smokes one pack cigarettes per day. ROS: 11:34 Constitutional: Negative for fever, chills, and weight loss, Cardiovascular: Negative pm1 for chest pain, palpitations, and edema. 11:34 Abdomen/GI: Negative for abdominal pain, nausea, vomiting, diarrhea, and constipation, Back: Negative for injury and pain, MS/Extremity: Negative for injury and deformity, Skin: Negative for injury, rash, and discoloration. 11:34 Neuro: Negative for headache, weakness, numbness, tingling, and seizure. 11:34 Respiratory: Positive for cough, shortness of breath, wheezing. 11:34 All other systems are negative. Exam: 11:34 Constitutional: This is a well developed, well nourished patient who is awake, alert, pm1 and in no acute distress. Head/Face: Normocephalic, atraumatic. 11:34 Back: No spinal tenderness. No costovertebral tenderness. Full range of motion. Skin: Warm, dry with normal turgor. Normal color with no rashes, no lesions, and no evidence of cellulitis. MS/ Extremity: Pulses equal, no cyanosis. Neurovascular intact. Full, normal range of motion. 11:34 Eyes: Exam is negative for acute changes, Extraocular movements: no acute changes, Conjunctiva: no acute changes, no injection. 11:34 ENT: Exam is negative for acute changes, Mouth: no acute changes, Lips: normal, moist, Oral mucosa: normal, pink and intact, moist. 11:34 Cardiovascular: Exam negative for acute changes, Rate: normal, Rhythm: regular, Pulses: no pulse deficits are appreciated, Heart sounds: normal, normal S1and S2, Edema: is not appreciated. 11:34 Respiratory: mild respiratory distress is noted, Respirations: tachypnea, 26 Breath sounds: rhonchi, that are moderate, are heard diffusely. 11:34 Abdomen/GI: Exam negative for acute changes, Inspection: abdomen appears normal, Palpation: abdomen is soft and non-tender, in all quadrants. 11:34 Neuro: Exam negative for acute changes, Orientation: is normal, Mentation: is normal, Motor: is normal, moves all fours. Vital Signs: 11:31 BP 140 / 49; Pulse 98; Resp 26; Temp 98.8; Pulse Ox 85% on R/A; Weight 49.9 kg; Height ab2 5 ft. 5 in. (165.10 cm); Pain 5/10; 11:58 BP 142 / 64; Pulse 100; Resp 26; Pulse Ox 100% on Nebulizer Mask; Pain 10/10; jh6 13:29 BP 132 / 52; Pulse 96; Resp 20; Pulse Ox 97% on 1 lpm NC; ww 14:39 Pulse Ox 71% on R/A; ww 16:30 BP 131 / 50; Pulse 87; Resp 19; Pulse Ox 100% on 2 lpm NC; ww 17:30 BP 140 / 65; Pulse 94; Resp 20; Pulse Ox 99% on 2 lpm NC; ww 18:00 BP 146 / 66; Pulse 92; Resp 21; Pulse Ox 100% on 2 lpm NC; ww 19:27 BP 133 / 63; Pulse 93; Resp 21; Pulse Ox 98% on 2 lpm NC; sm5 11:31 Body Mass Index 18.30 (49.90 kg, 165.10 cm) ab2 14:39 after ambulation to restroom NIH Stroke Scale Scores: 11:49 NIHSS Score: 0 jh6 MDM: 11:29 Patient medically screened. pm1 11:35 Data reviewed: vital signs. Data interpreted: Pulse oximetry: on room air is 85 %. pm1 Interpretation: hypoxia. Plan: O2 by NC applied. 11:42 ED course: 30 mL per kg bolus not given because patient appears to be COPD exacerbation.pm1 14:56 Physician consultation: Cristina Levine MD was called at 14:56, was contacted at 14:56, pm1 regarding admission, patient's condition, and will see patient. 11/22 11:34 Order name: Blood Culture Adult (2) pm1 11/22 11:34 Order name: CBC with Diff; Complete Time: 12:32 pm1 11/22 11:34 Order name: CMP; Complete Time: 12:32 pm1 11/22 11:34 Order name: Lactate; Complete Time: 12:32 pm1 11/22 11:34 Order name: Protime (+inr); Complete Time: 12:32 pm1 11/22 11:34 Order name: Ptt, Activated; Complete Time: 12:32 pm1 11/22 11:34 Order name: Urine Microscopic Only pm1 11/22 13:29 Order name: COVID-19/FLU A+B (Document "Date of Onset" if Symptomatic); Complete Time: 14:54 11/22 18:29 Order name: CBC with Automated Diff EDMS 11/22 18:29 Order name: CBC with Automated Diff EDMS 11/22 18:29 Order name: Comprehensive Metabolic Panel EDMS 11/22 18:29 Order name: Comprehensive Metabolic Panel EDMS 11/22 18:29 Order name: Lactate EDMS 11/22 18:29 Order name: Lactate EDMS 11/22 11:34 Order name: Chest Single View XRAY; Complete Time: 12:32 pm1 11/22 18:29 Order name: Lipid Profile EDMS 11/22 18:29 Order name: Lipid Profile EDMS 11/22 18:29 Order name: Magnesium EDMS 11/22 18:29 Order name: Magnesium EDMS 11/22 18:29 Order name: NT PRO-BNP [facility]SC 11/22 18:29 Order name: NT PRO-BNP [facility] 11/22 18:29 Order name: Phosphorus [facility] 11/22 18:29 Order name: Phosphorus [facility] 11/22 11:34 Order name: Accucheck; Complete Time: 11:47 pm1 11/22 11:34 Order name: Cardiac monitoring; Complete Time: 11:40 pm1 11/22 11:34 Order name: EKG - Nurse/Tech; Complete Time: 11:40 pm1 11/22 11:34 Order name: IV Saline Lock - Large Bore; Complete Time: 11:47 pm1 11/22 11:34 Order name: Labs collected and sent; Complete Time: 11:47 pm1 11/22 11:34 Order name: O2 Per Protocol; Complete Time: 11:40 pm1 11/22 11:34 Order name: O2 Sat Monitoring; Complete Time: 11:40 pm1 11/22 18:29 Order name: CONS Physician Consult [facility] 11/22 18:29 Order name: Regular EDSC Administered Medications: 11:59 Drug: Albuterol - atroVENT (ipratropium) (3:1) (2.5 mg - 0.5 mg) 3 ml Route: Nebulizer; ww 11:59 Drug: Tussionex Pennkinetic ER (chlorpheniramine-hydrocodone) Suspension 5 ml Route: PO;ww 12:00 Drug: Decadron (dexamethasone) 10 mg Route: IM; Site: left gluteus; ww 12:00 Drug: Magnesium Sulfate 1 grams Route: IVPB; Infused Over: 1 hrs; Site: right ww antecubital; 13:08 Drug: Rocephin (cefTRIAXone) 1 grams Route: IV; Rate: calculated rate; Site: right ww antecubital; 13:08 Drug: NS 0.9% 500 ml Route: IV; Rate: bolus; Site: right antecubital; ww 13:22 Drug: AZITHromycin 500 mg Route: IVPB; Infused Over: 1 hrs; Site: right antecubital; Disposition Summary: 11/22/21 14:57 Hospitalization Ordered Hospitalization Status: Inpatient Admission pm1 Provider: Cristina Levine pm1 Location: Telemetry/[facility] (Inpatient) pm1 Condition: Stable pm1 Problem: new pm1 Symptoms: have improved pm1 Bed/Room Type: Standard pm1 Room Assignment: 229(11/22/21 19:17) mw Diagnosis - Pneumonia, unspecified organism pm1 - COPD/ Chronic obstructive pulmonary disease with (acute) exacerbation pm1 Forms: - Medication Reconciliation Form pm1 - SBAR form pm1 NIH Stroke Scale - NIH Stroke Score Date: 11/22/2021 Time: 11:49 Total Score = 0 1a. Level of Consciousness (LOC) - 0(Alert) 1b. Level of Consciousness (LOC) (Month \\T\\ Age) - 0(Both) 1c. LOC Commands (Open \\T\\ Closes Eyes/Feltmaker And Weigher) - 0(Both) 2. Best Gaze (Lateral Gaze Paresis) - 0(Normal) 3. Visual Field Loss - 0(No visual loss) 4. Facial Palsy - 0(Normal) 5a. Left Arm: Motor (10-second hold) - 0(No drift) 5b. Right Arm: Motor (10-second hold) - 0(No drift) 6a. Left Leg: Motor (5-second hold - always test supine) - 0(No drift) 6b. Right Leg: Motor (5-second hold - always test supine) - 0(No drift) 7. Limb Ataxia (finger/nose \\T\\ heel/blas - test with eyes open) - 0(Absent) 8. Sensory Loss (pinprick arms/legs/face) - 0(Normal) 9. Best Language: Aphasia (description/naming/reading) - 0(No aphasia) 10. Dysarthria (speech clarity - read or repeat words) - 0(Normal) 11. Extinction and Inattention (visual/tactile/auditory/spatial/personal) - 0(No abnormality) Initials: [facility] Addendum: 11/25/2021 07:16 Co-signature as Attending Physician, Dagoberto Sim MD I agree with the [facility] assessment and plan of care. Signatures: Dispatcher [employer] EDMS Latesha Tinsley RN RN mw Anderson, Corey, MD MD cha Marinas, Patrick, PAPER PATTERN INSPECTOR PAPER PATTERN INSPECTOR pm1 Tresa Young RN RN sm5 Niki Santillan RN RN ww Bleininger, Alexis ab2 Corrections: (The following items were deleted from the chart) 11/22 19:17 14:57 pm1 mw
[2021-11-22] MEDS ORDERED: ACETAMINOPHEN 500 MG TAB PO PRN (18:19)
[2021-11-22] MEDS ORDERED: IPRATROPIUM BROM 0.5MG/2.5ML NEB PRN (18:19)
[2021-11-22] MEDS ORDERED: ONDANSETRON 4 MG/2 ML VIAL IV PRN (18:19)
[2021-11-22] MEDS ORDERED: ALBUTEROL 2.5 MG/3 ML NEB SOL NEB PRN (18:19)
[2021-11-22] MEDS ORDERED: Levofloxacin 750mg IV 750 MG/150 ML BAG IV SCH (19:00)
[2021-11-22] MEDS ORDERED: NA CHLORIDE 0.9% 1,000 ML IV SCH (19:00)
[2021-11-22 22:17] VITALS: BMI 18.3
[2021-11-23] MEDS ORDERED: LORazepam 2 MG/ML VIAL IV ONE (00:45)
--- NOTE | 2021-11-23 03:42 | P.HP ---
Certification for Inpatient Patient admitted to: Inpatient With expected LOS: >2 Midnights Patient will require the following post-hospital care: None Practitioner: I am a practitioner with admitting privileges, knowledge of patient current condition, hospital course, and medical plan of care. Services: Services provided to patient in accordance with Admission requirements found in Title 42 Section 412.3 of the Code of Federal Regulations Patient History Date of Service: 11/22/21 Reason for admission: Shortness of breath and hypoxemia History of Present Illness: Patient is a 61-year-old female who is been having difficulty breathing on and off for quite a while. Patient has been scheduled to follow-up with a building pressure washer but she has not followed up. She is also been having hemoptysis. She has been getting really fatigued and hypoxic on short walks. Since she was worsening she came to the emergency room for further evaluation. In the em ergency room patient had chest x-ray which did not reveal any significant abnormality. Patient was given nebs but when she was ambulating she was hypoxic. Decision was made to admit the patient to the hospital for further evaluation. Allergies No Known Drug Allergies Allergy (Verified 04/28/21 09:45) none Home Medications: Aspirin [Adult Aspirin] 81 mg PO DAILY 10/06/18 Gabapentin [Neurontin] 400 mg PO QID 10/06/18 Amlodipine [Norvasc*] 5 mg PO DAILY #30 tab 10/09/18 Metoprolol Tartrate [Lopressor*] 25 mg PO BID #60 tab 10/09/18 - Past Medical/Surgical History Diabetic: No -: Depression -: HTN -: Chronic back pain -: Neuropathy -: CAD -: CABG 2017 3 vessel -: Tobacco -: COPD -: appendectomy -: CABG x 3 Psychosocial/ Personal History: Single - Family History Mother Medical History: Heart disease, Diabetes - Social History Smoking Status: Current every day smoker Alcohol use: No CD- Drugs: No Caffeine use: Yes Place of Residence: Home Review of Systems 10-point ROS is otherwise unremarkable Physical Examination - Vital Signs Temperature: 95.5 F Blood Pressure: 132/67 Pulse: 87 Respirations: 19 Pulse Ox (%): 19 - Physical Exam General: Alert, In no apparent distress, Oriented x3 HEENT: Atraumatic, PERRLA, Mucous membr. moist/pink, EOMI, Sclerae nonicteric Neck: Supple, 2+ carotid pulse no bruit, No LAD, Without JVD or thyroid abnormality Respiratory: Diminished, Expiratory wheezes Cardiovascular: Regular rate/rhythm, Normal S1 S2, No murmurs Gastrointestinal: Normal bowel sounds, Soft and benign, Non-distended, No tenderness Musculoskeletal: No clubbing, No swelling, No tenderness Integumentary: No rashes Neurological: Normal gait, Normal speech, Normal strength at 5/5 x4 extr, Normal tone, Sensation intact, Cranial nerves 3-12 intact, Normal affect Lymphatics: No axilla or inguinal lymphadenopathy - Studies Laboratory Data (last 24 hrs) 11/22/21 11:45: PT 10.5, INR 0.96, APTT 32.0 11/22/21 11:45: Sodium 131 L, Potassium 4.0, BUN 10, Creatinine 0.71, Glucose 170 H, Total Bilirubin 0.7, AST 16, ALT 27, Alkaline Phosphatase 115 11/22/21 11:45: WBC 7.5, Hgb 15.5 H, Hct 44.5, Plt Count 245 Assessment & Plan - Problems (Diagnosis) (1) Hemoptysis Current Visit: Yes Status: Acute (2) Shortness of breath Current Visit: Yes Status: Acute (3) Hypoxemia Current Visit: Yes Status: Acute (4) CAD (coronary artery disease) Onset Date: 10/09/18 Current Visit: No Status: Acute Qualifiers: (5) Dyspnea Current Visit: No Status: Acute Qualifiers: (6) COPD (chronic obstructive pulmonary disease) Current Visit: No Status: Chronic - Plan Plan: 1. Continue with IV antibiotics 2. Awaiting sputum and blood culture 3. Repeat chest x-ray 4. CT scan of the chest to evaluate hemoptysis 5. Pulmonary consultation; patient follow-up 6. Continue with nebs as needed 7. O2 per protocol 8. Hep-Lock IV 9. Repeat labs 10. GI and DVT prophylaxis - Advance Directives Does patient have a Living Will: No Does patient have a Durable POA for Healthcare: No - Code Status/Comfort Care Code Status Assessed: Yes Code Status: Full Code Critical Care: No Time Spent Managing PTS Care (In Minutes): 45
[2021-11-23 04:27] LABS: Absolute Lymphocytes (CBC) 0.4 K/uL (0.7-4.9); Hematocrit 37.8 % (36.0-45.0); Lymphocytes % 5.7 % (15.3-44.8); MPV 8.1 fL (7.6-11.3); RBC Red Blood Cell Count 3.78 M/uL (3.86-4.86)
[2021-11-23 04:38] LABS: ALT/SGPT 21 U/L (12-78); AST/SGOT 15 U/L (15-37); Albumin 2.6 g/dL (3.4-5.0); Alkaline Phosphatase 88 U/L (45-117); BUN Blood Urea Nitrogen 17 mg/dL (7-18); Bicarbonate 30 mmol/L (21-32); Bilirubin Total 0.3 mg/dL (0.2-1.0); Glucose Level 143 mg/dL (74-106); HDL Cholesterol 80 mg/dL (40-60); LDL Cholesterol, Calculated 181 (<130); Magnesium 2.1 mg/dL (1.8-2.4); NT PRO-BNP 5169 pg/mL (<125); Phosphorus 3.4 mg/dL (2.5-4.9); Potassium 4.3 mmol/L (3.5-5.1); Protein, Total 6.7 g/dL (6.4-8.2); Sodium Level 132 mmol/L (136-145)
[2021-11-23 05:02] LABS: Blood Morphology Comment NOT SEEN (NOT SEEN); Platelet Estimate ADEQ
[2021-11-23] MEDS ORDERED: INFLUENZA VACCINE (for 6+ mo) 0.5 ML DOSE IMVAC ONE (08:00)
[2021-11-23] MEDS ORDERED: PNEUMOCOCCAL VACCINE 0.5 ML IMVAC ONE (08:00)
--- NOTE | 2021-11-23 09:00 | RAD REPORT ---
EXAM DESCRIPTION: CT - Thorax W/ Con - 11/23/2021 8:46 am CLINICAL HISTORY: hemoptysis COMPARISON: Chest Abd Pelvis Wo Con dated 10/06/2018 FINDINGS: Chest Wall: No suspicious thyroid nodules or pathologic lymphadenopathy. Lungs: Left upper lobe lung mass contiguous with the left hilum measuring 3 cm. See mediastinum/ duane below. Other scattered areas of micro nodularity throughout the right lung. Nonspecific Pleura: No significant effusions or pneumothorax. Mediastinum/duane: 12 mm enlarged subcarinal lymph node. Left hilar mass measuring 4.6 by 4.1 cm with near occlusion of the lingular branch of the left pulmonary artery. Prominent right hilar lymph node. Pulmonary arteries/Aorta: No filling defect identified. No aortic aneurysm. Heart: No significant pericardial effusion. Normal heart size. Coronary artery calcifications . Upper abdomen: No acute abnormality. Bones: No acute abnormality. All CT scans are performed using dose optimization technique as appropriate and may include automated exposure control or mA/KV adjustment according to patient size. IMPRESSION: Findings almost certainly representing primary bronchogenic carcinoma with left upper lo be lung lesion and contiguous left hilar mass. Nonspecific but conspicuous subcarinal lymph node is s imilar in size to 10/06/2018. Recommend PET-CT and bronchoscopy for tissue sampling. Scattered areas of mild micronodularity in the right lung consistent with infection or inflammation, possibly aspiration or bronchiolitis.
[2021-11-23] MEDS: ALBUTEROL 2.5 MG/3 ML NEB SOL NEB SCH ×3 (09:42→19:25)
[2021-11-23] MEDS: ENOXAPARIN 40 MG/0.4 ML SQ SCH (09:50)
[2021-11-23] MEDS: levoFLOXacin 750 MG TAB PO SCH (09:51)
[2021-11-23] MEDS: METHYLPREDNISOLONE 40 MG INJ IV SCH ×2 (09:51→16:45)
--- NOTE | 2021-11-23 10:34 | P.PN ---
Subjective Date of Service: 11/23/21 Chief Complaint: Shortness of breath and hypoxemia Subjective: No new changes Review of Systems General: Unremarkable Eyes: Unremarkable ENT: Unremarkable Respiratory: Cough, Shortness of Breath Cardiovascular: Unremarkable Gastrointestinal: Unremarkable Genitourinary: Unremarkable Musculoskeletal: Unremarkable Neurological: Unremarkable Physical Examination - Vital Signs Temperature: 97.3 F Blood Pressure: 189/91 Pulse: 58 Respirations: 20 Pulse Ox (%): 92 - Physical Exam General: Alert, Oriented x3 HEENT: Atraumatic, Normocephalic Respiratory: Diminished Cardiovascular: Regular rate/rhythm, Normal S1 S2 Gastrointestinal: Soft and benign Neurological: Normal strength at 5/5 x4 extr - Studies Laboratory Data (last 24 hrs) 11/22/21 11:45: PT 10.5, INR 0.96, APTT 32.0 11/22/21 11:45: Sodium 131 L, Potassium 4.0, BUN 10, Creatinine 0.71, Glucose 170 H, Total Bilirubin 0.7, AST 16, ALT 27, Alkaline Phosphatase 115 11/22/21 11:45: WBC 7.5, Hgb 15.5 H, Hct 44.5, Plt Count 245 Assessment And Plan - Plan COPD Respiratory failure with hypoxia Hemoptysis Suspected bronchogenic carcinoma Hypertension Hyperlipidemia. Plan: CT scan of the chest left upper lobe mass measuring about 3 cm with subcarinal lymph nodes and significant concerning for bronchogenic carcinoma. We will continue antibiotic therapy and breathing treatments. Blood pressure is better controlled this morning. We will continue home medication titrate to achieve adequate blood pressure control. We will continue to follow symptomatology and wean off oxygen as tolerated. Port Patrol Officer following for bronchoscopy to have tissue biopsy sent for cytology.
[2021-11-23] MEDS ORDERED: AMLODIPINE 5 MG TAB PO SCH (10:45)
[2021-11-23] MEDS: METOPROLOL TAR 25 MG TAB PO SCH ×2 (10:53→22:13)
--- NOTE | 2021-11-23 11:39 | P.CNS ---
Date of Consult: 11/23/21 Chief Complaint: COPD exacerbation lung mass suspicious of lung cancer History of Present Illness: Dimitri is 61 years of age admitted with COPD exacerbation shortness of breath for quite some time using nebulized bronchodilator has productive sputum out of breath she has a mass in the left lung Allergies No Known Drug Allergies Allergy (Verified 04/28/21 09:45) none Home Medications: Aspirin [Adult Aspirin] 81 mg PO DAILY 10/06/18 Gabapentin [Neurontin] 400 mg PO QID 10/06/18 Amlodipine [Norvasc*] 5 mg PO DAILY #30 tab 10/09/18 Metoprolol Tartrate [Lopressor*] 25 mg PO BID #60 tab 10/09/18 - Past Medical/Surgical History Diabetic: No -: Depression -: HTN -: Chronic back pain -: Neuropathy -: CAD -: CABG 2017 vessel -: Tobacco -: COPD -: appendectomy -: CABG x 3 Psychosocial/ Personal History: Single - Family History Mother Medical History: Heart disease, Diabetes - Social History Smoking Status: Current every day smoker Alcohol use: No CD- Drugs: No Caffeine use: Yes Place of Residence: Home Review of Systems General: Weakness Respiratory: Cough, Shortness of Breath Physical Examination Temp Pulse Resp BP Pulse Ox 97.3 F 102 H 20 189/91 H 92 11/23/21 10:36 11/23/21 10:55 11/23/21 10:36 11/23/21 10:55 11/23/21 10:36 General: Alert, Moderate distress Respiratory: Expiratory wheezes Cardiovascular: No edema, Regular rate/rhythm, Normal S1 S2 Gastrointestinal: Normal bowel sounds, Soft and benign Laboratory Data (last 24 hrs) 11/22/21 11:45: PT 10.5, INR 0.96, APTT 32.0 11/22/21 11:45: Sodium 131 L, Potassium 4.0, BUN 10, Creatinine 0.71, Glucose 170 H, Total Bilirubin 0.7, AST 16, ALT 27, Alkaline Phosphatase 115 11/22/21 11:45: WBC 7.5, Hgb 15.5 H, Hct 44.5, Plt Count 245 - Problems (1) COPD exacerbation Current Visit: Yes Status: Acute Plan: Patient is 61 years of age admitted with COPD exacerbation still continues to smoke add steroids and antibiotic blood pressure elevated (2) Lung cancer Current Visit: Yes Status: Acute Plan: Patient almost certainly has lung cancer we will schedule for for bronchoscopy will discuss with the patient Qualifiers: Laterality: left Lung location: upper lobe of lung Qualified Code(s): C34.12 - Malignant neoplasm of upper lobe, left bronchus or lung
[2021-11-23] MEDS ORDERED: AMLODIPINE 10 MG TAB PO SCH (12:00)
[2021-11-23] MEDS ORDERED: AMLODIPINE 5 MG TAB PO ONE (13:00)
[2021-11-23] MEDS ORDERED: LORAZEPAM 1 MG TABLET PO PRN (13:10)
[2021-11-23] MEDS: GABAPENTIN 300 MG CAP PO SCH ×2 (13:41→22:13)
[2021-11-24] MEDS: METHYLPREDNISOLONE 40 MG INJ IV SCH ×3 (00:45→16:41)
[2021-11-24] MEDS: ALBUTEROL 2.5 MG/3 ML NEB SOL NEB SCH ×3 (02:00→14:14)
[2021-11-24] MEDS: NICOTINE 14 MG/PAT TD SCH ×2 (02:48→08:58)
--- NOTE | 2021-11-24 07:26 | P.PN ---
Subjective Date of Service: 11/24/21 Chief Complaint: Shortness of breath and hypoxemia Physical Examination - Vital Signs Temperature: 97 F Blood Pressure: 128/72 Pulse: 75 Respirations: 18 Pulse Ox (%): 92 Assessment And Plan - Plan COPD Respiratory failure with hypoxia Hemoptysis Suspected bronchogenic carcinoma Hypertension Hyperlipidemia. Plan: CT scan of the chest left upper lobe mass measuring about 3 cm with subcarinal lymph nodes and significant concerning for bronchogenic carcinoma. We will continue antibiotic therapy and breathing treatments. Blood pressure is better controlled this morning. We will continue home medication titrate to achieve adequate blood pressure control. We will continue to follow symptomatology and wean off oxygen as tolerated. Relay Adjuster following for bronchoscopy to have tissue biopsy sent for cytology.
[2021-11-24] MEDS ORDERED: Phenylephrine HCl 10 MG/ML 1 ML VIAL ONE (07:53)
[2021-11-24] MEDS ORDERED: LIDOCAINE 4% TOP SOLUTION ONE (07:53)
[2021-11-24] MEDS ORDERED: LORazepam 2 MG/ML VIAL IV ONE (08:41)
[2021-11-24] MEDS: GABAPENTIN 300 MG CAP PO SCH ×2 (09:00→15:11)
[2021-11-24] MEDS ORDERED: AMLODIPINE 10 MG TAB PO SCH (09:00)
[2021-11-24] MEDS ORDERED: ASPIRIN EC 81 MG TAB PO SCH (09:00)
[2021-11-24] MEDS: ENOXAPARIN 40 MG/0.4 ML SQ SCH (09:00)
[2021-11-24] MEDS: levoFLOXacin 750 MG TAB PO SCH (09:00)
[2021-11-24] MEDS: METOPROLOL TAR 25 MG TAB PO SCH (09:00)
[2021-11-24] MEDS ORDERED: LIDOCAINE VISCOUS 2% SOLN 15 ML UDC ONE (11:23)
[2021-11-24] MEDS ORDERED: LIDOCAINE 1% MPF 30 ML VIAL ONE ×2 (11:23→11:43)
[2021-11-24] MEDS ORDERED: Ringers Lactate 1,000 ML IV ONE (11:38)
[2021-11-24] MEDS ORDERED: FENTANYL CITR 100 MCG/2 ML ONE (11:42)
[2021-11-24] MEDS ORDERED: propofoL 200 MG/20 ML VIAL IV ONE ×3 (11:43→12:38)
--- NOTE | 2021-11-24 12:39 | EKG ---
Test Date: 2021-11-22 Test Time: 11:41:14 Coordinator Of Evaluation: DAISY MEASUREMENT RESULTS: Intervals: Rate: 103 DC: 112 QRSD: 72 QT: 354 QTc: 463 [place]: P: -11 DC: 112 QRS: 84 T: 78 INTERPRETIVE STATEMENTS: Sinus tachycardia with frequent premature ventricular complexes Anterior infarct, age undetermined Abnormal ECG Compared to ECG 04/28/2021 05:33:35 Sinus rhythm no longer present Right-axis deviation no longer present Myocardial infarct finding still present Electronically Signed On 11-24-21 12:33:39 CDT by Macario Daly
--- NOTE | 2021-11-24 12:45 | P.OP ---
Date of Service: 11/24/21 (Bronchoscopy attempted) Findings and Operative Technique Patient is 61 years of age evaluated for me for a left upper lobe lung mass with hemoptysis Attempted bronchoscopy x3 to be stopped due to significant desaturation and bleeding no biopsies or specimens taken patient will be referred over to tertiary care facility/discussed with the patient return were present
[2021-11-24] MEDS ORDERED: INFLUENZA VACCINE (for 6+ mo) 0.5 ML DOSE IMVAC ONE (13:00)
--- NOTE | 2021-11-24 13:50 | RAD REPORT ---
EXAM DESCRIPTION: RAD - FLUORO-GUIDE FOR BRONCH UPT1HR - 11/24/2021 1:10 pm CLINICAL HISTORY: BRONCH COMPARISON: No comparisons FINDINGS: Fluoroscopy time 46 seconds.
[2021-11-24 15:44] VITALS: O2SAT 88
[2021-11-24 16:40] VITALS: BP 140/58; TEMP 97.3
--- NOTE | 2021-11-24 17:03 | P.DS ---
Admission Date: 11/22/21 Discharge Date: 11/24/21 Disposition: ROUTINE DISCHARGE Discharge Condition: FAIR Reason for Admission: Shortness of breath and hypoxemia Brief History of Present Illness: 61-year-old male patient medical history significant for hypertension and tobacco abuse was evaluated in the emergency room for episode of shortness of breath and hemoptysis. Is admitted for well and patient was worked up and found to have a lung mass in the left upper apical region. She had a CT of the chest ordered and she was started on empiric antibiotic of Levaquin for suspected pneumonia/bronchitis. She was also started on steroid therapy. She was admitted for inpatient care and work-up. Hospital Course: Over the course of hospital stay she continued antibiotic therapy and she Had persistent hemoptysis. Pulmonary physician Dr. Simeon reviewed her CT of the chest and chest x-ray and there was significant concern for malignancy as she had mass in the upper left area with associated lymphadenopathy. She had bronchospasm preprocedure attempted however because of profuse sweating bleeding from mass this was aborted. Patient was asked to be discharged to complete antibiotic therapy of Levaquin for a week and also steroid therapy. She will follow up with Dr. Simeon on outpatient for management recommendation with regard to left lung mass and also with oncology as deemed necessary. Vital Signs/Physical Exam: Temp Pulse Resp BP Pulse Ox 97.3 F 87 18 140/58 L 94 11/24/21 16:00 11/24/21 16:00 11/24/21 16:00 11/24/21 16:00 11/24/21 16:00 Laboratory Data at Discharge: WBC 6.2 K/uL (4.3-10.9) D 11/23/21 03:56 Hgb 12.9 g/dL (12.0-15.0) D 11/23/21 03:56 Hct 37.8 % (36.0-45.0) D 11/23/21 03:56 Plt Count 218 K/uL (152-406) 11/23/21 03:56 PT 10.5 SECONDS (9.5-12.5) 11/22/21 11:45 INR 0.96 11/22/21 11:45 APTT 32.0 SECONDS (24.3-36.9) 11/22/21 11:45 Sodium 132 mmol/L (136-145) L 11/23/21 03:56 Potassium 4.3 mmol/L (3.5-5.1) 11/23/21 03:56 BUN 17 mg/dL (7-18) 11/23/21 03:56 Creatinine 0.52 mg/dL (0.55-1.3) L 11/23/21 03:56 Glucose 143 mg/dL (74-106) H 11/23/21 03:56 Phosphorus 3.4 mg/dL (2.5-4.9) 11/23/21 03:56 Magnesium 2.1 mg/dL (1.8-2.4) 11/23/21 03:56 Total Bilirubin 0.3 mg/dL (0.2-1.0) 11/23/21 03:56 AST 15 U/L (15-37) 11/23/21 03:56 ALT 21 U/L (12-78) 11/23/21 03:56 Alkaline Phosphatase 88 U/L (45-117) 11/23/21 03:56 Triglycerides 119 mg/dL (<150) 11/23/21 03:56 Cholesterol 285 mg/dL (<200) H 11/23/21 03:56 HDL Cholesterol 80 mg/dL (40-60) H 11/23/21 03:56 Cholesterol/HDL Ratio 3.56 11/23/21 03:56 Home Medications: Aspirin [Adult Aspirin] 81 mg PO DAILY 10/06/18 Gabapentin [Neurontin] 400 mg PO QID 10/06/18 Amlodipine [Norvasc*] 5 mg PO DAILY #30 tab 10/09/18 Metoprolol Tartrate [Lopressor*] 25 mg PO BID #60 tab 10/09/18 Nicotine [Nicotine Patch] 1 each TD DAILY 14 Days #14 patch.td24 11/24/21 levoFLOXacin [Levaquin*] 750 mg PO DAILY #7 tab 11/24/21 predniSONE [Prednisone] 20 mg PO DAILY 7 Days #7 tablet 11/24/21 New Medications: levoFLOXacin [Levaquin*] 750 mg PO DAILY #7 tab Nicotine [Nicotine Patch] 1 each TD DAILY 14 Days #14 patch.td24 predniSONE [Prednisone] 20 mg PO DAILY 7 Days #7 tablet Physician Discharge Instructions: To follow-up with pulmonary doctor Dr. Simeon within 1 week of discharge. To have scheduled oncology visit for management of suspicious lung cancer Diet: Regular Activity: Ad marley Followup: Renetta Morillo DO, DO [Primary Care Provider] -
[2021-11-24] MEDS ORDERED: ENSURE ENLIVE 237 ML CAN PO SCH (21:00)
== END 2021-11-24 19:05 | disposition home or self-care (01) | DRG 193 ==
LOC: ER 11:17 → ERHOLD 18:28 → 2ND 19:40
PROVIDERS: ADMIT Hospitalist; ATTEND Hospitalist
PROC: 0WJQ8ZZ Inspection of Respiratory Tract, Via Natural or Artificial Opening Endoscopic Approach (ICD-10-PCS; principal; 2021-11-24 12:00)
DX: J18.9 Pneumonia, unspecified organism (principal); J96.01 Acute respiratory failure with hypoxia; C34.12 Malignant neoplasm of upper lobe, left bronchus or lung; E44.0 Moderate protein-calorie malnutrition; Z68.1 Body mass index [BMI] 19.9 or less, adult; J44.0 Chronic obstructive pulmonary disease with (acute) lower respiratory infection; J44.1 Chronic obstructive pulmonary disease with (acute) exacerbation; R04.2 Hemoptysis; I25.10 Atherosclerotic heart disease of native coronary artery without angina pectoris; I10 Essential (primary) hypertension; F17.210 Nicotine dependence, cigarettes, uncomplicated; Z95.1 Presence of aortocoronary bypass graft; Z20.822 Contact with and (suspected) exposure to COVID-19
CPT/HCPCS: 0240U; 36415; 71045; 71260; 76000; 80053; 80061; 83605; 83735; 83880; 84100; 85025; 85610; 85730; 87040; 93005; 94640; 94760; 96372; 96374; 96375; 99285; J0456; J1100; J1650; J2370; J2704; J2920; J3010; J3475; J7030; J7040; J7050; J7120; Q9967

== ENCOUNTER 2022-03-21 18:26 | Emergency (ER) | payer BC ==
--- OUTSIDE RECORDS SUMMARY | 2022-03-21 18:33 | XMS REPORT | Clinical Summary ---
:1960 Author Organization [facility] MD [place] [facility] Address [address] [place] [address] Care Team Providers Name Role Phone MD Yisel Unavailable Jade Aiken MD Unavailable Zi Cardoza MD Primary Care Provider Allergies Active Allergy Reactions Severity Noted Date Comments Chlorhexidine Itching High 07/27/2017 new new Medications Medication Sig Dispensed Refills Start End Status Date Date DULoxetine Take 1 capsule 0 11/28/19 Acti ve (CYMBALTA) 60 mg by mouth daily. 22 capsule Trelegy Ellipta Inhale 1 puff by 0 11/26/19 Active 100-62.5-25 mcg dsdv mouth daily. 22 gabapentin Take 800 mg by 0 08/01/20 Acti ve (NEURONTIN) 800 mg mouth 4 (four) 17 tablet times a day. ipratropium Inhale 1 mL by 0 11/28/19 Act gume (ATROVENT) 0.02% nebulization 22 nebulizer solution daily. metoprolol tartrate Take 25 mg by 0 08/01/20 Active (LOPRESSOR) 25 mg mouth twice 17 tablet daily. naloxone (NARCAN) 4 Inhale 1 spray 0 11/28/19 Active mg/actuation nasal into each 22 spray nostril as needed. Vuity 1.25 % drop Administer 1 0 11/17/19 Active drop to both 22 eyes twice daily. cyanocobalamin Inject 1 mL into 0 08/31/19 Active (VITAMIN B-12) 1,000 the shoulder, 22 mcg/mL injection thigh, or buttocks every 30 (thirty) days. clonazePAM Take 1 tablet by 0 11/28/19 Ac tive (KlonoPIN) 2 mg mouth as needed. 22 tablet aspirin 81 mg Chew 81 mg 0 Activ e chewable tablet daily. amLODIPine (NORVASC) Take 1 tablet by 0 11/28/19 Active 5 mg tablet mouth daily. 22 albuterol Inhale 2.5 mg by 0 Act gume (PROVENTIL,VENTOLIN) mouth as needed. 2.5 mg/3 mL (0.083%) nebulizer solution albuterol (VENTOLIN Inhale 1 puff by 0 11/28/19 Active HFA,PROAIR HFA) 90 mouth as needed. 22 mcg/puff inhaler prochlorperazine Take 1 tablet 30 tablet 0 02/18/20 Active (Compazine) 10 mg (10 mg) by mouth 22 tabletIndications: every 6 (six) Squamous cell hours as needed carcinoma of left for nausea. lung HYDROcodone-acetamin Take 1 tablet by 90 tablet 0 02/20/20 Active ophen (NORCO) 10 mouth every 6 22 mg-325 mg per (six) hours as tabletIndications: needed (pain). Neoplasm related pain (acute) (chronic) ondansetron (ZOFRAN) Take 1 tablet (8 30 tablet 2 02/20/20 Active 8 mg mg) by mouth 22 tabletIndications: every 8 (eight) Squamous cell hours as needed carcinoma of left for nausea or lung vomiting. OLANZapine (ZyPREXA) TAKE 0.5 30 tablet 0 02/23/20 Active 5 mg (ONE-HALF) 22 tabletIndications: TABLET BY MOUTH Other insomnia EVERY 6 HOURS NEEDED FOR ANXIETY AND 1 TABLET AT BEDTIME FOR SLEEP Nicoderm CQ 21 mg/24 Apply 2 patch to 56 patch 0 03/19/20 Active hr transdermal skin and change 22 patchIndications: patch daily as Tobacco dependence directed for syndrome tobacco cessation (alternate sites). buPROPion Take 1 tablet 30 tablet 0 03/19/20 Active (Wellbutrin XL) 150 (150 mg) by 22 mg 24 hr mouth every tabletIndications: morning. Tobacco dependence syndrome HYDROcodone-acetamin Take 1 tablet by 0 11/03/19 05 //2 Discontinued ophen (NORCO) 10 mouth as needed. 22 022 (Reorder) mg-325 mg per tablet methocarbamol Take 500 mg by 0 07/15/20 D iscontinued (ROBAXIN) 500 mg mouth as needed. tablet ascorbic acid Take 1 tablet by 0 04/28/20 Discontinued (VITAMIN C) 500 mg mouth daily. (Therapy tablet completed) predniSONE Take 2 tablets 10 tablet 0 12/15/19 Expi red (DELTASONE) 20 mg (40 mg) by mouth tabletIndications: daily for 5 Chronic obstructive days. pulmonary disease, not otherwise specified doxycycline Take 1 capsule 10 capsule 0 12/15/19 Ex pired (Vibramycin) 100 MG (100 mg) by capsuleIndications: mouth twice Chronic obstructive daily for 5 pulmonary disease, days. not otherwise specified varenicline One Tablet PO 56 tablet 0 12/18/19 Disc ontinued (CHANTIX) 1 mg once a day x 7 (Other ) tabletIndications: days then twice Tobacco dependence a day syndrome Nicoderm CQ 21 mg/24 Apply 1 patch to 28 patch 0 12/23/19 Discontinued hr transdermal skin and change patchIndications: patch daily as Tobacco dependence directed for syndrome tobacco cessation (alternate sites). buPROPion Take 1 tablet 30 tablet 0 12/23/19 Discon tinued (WELLBUTRIN XL) 150 (150 mg) by 22 022 mg 24 hr mouth every tabletIndications: morning. Tobacco dependence syndrome ondansetron (ZOFRAN) Take 1 tablet (8 30 tablet 2 01/07/20 Discontinued 8 mg mg) by mouth (Reorde r) tabletIndications: every 8 (eight) Squamous cell hours as needed carcinoma of left for nausea or lung vomiting. HYDROcodone-acetamin Take 1 tablet by 90 tablet 0 01/15/20 Discontinued ophen (NORCO) 10 mouth as needed (Reorder) mg-325 mg per (pain). tabletIndications: Neoplasm related pain (acute) (chronic) OLANZapine (ZyPREXA) Take half tablet 30 tablet 0 01/15/20 Discontinued 5 mg every 6 hours as tabletIndications: needed for Other insomnia anxiety; take 1 tablet at night for sleep buPROPion Take 1 tablet 30 tablet 0 01/20/ Discon tinued (Wellbutrin XL) 300 (300 mg) by 22 022 (Side effects) mg 24 hr mouth every tabletIndications: morning. Tobacco dependence syndrome Nicoderm CQ 21 mg/24 Apply 2 patch to 56 patch 0 01/21/20 Discontinued hr transdermal skin and change 22 022 (Reorder) patchIndications: patch daily as Tobacco dependence directed for syndrome tobacco cessation (alternate sites). buPROPion Take 1 tablet 30 tablet 0 02/02/ Discon tinued (Wellbutrin XL) 150 (150 mg) by 22 022 (Reorder) mg 24 hr mouth every tabletIndications: morning. Tobacco dependence syndrome nystatin Swish and 300 mL 0 02/10/20 (MYCOSTATIN) 100,000 swallow 5 mL 22 022 units/mL (500,000 Units) suspensionIndication 4 (four) times a s: Oral thrush day for 10 days. HYDROcodone-acetamin Take 1 tablet by 6 tablet 0 02/16/20 Discontinued ophen (NORCO) 10 mouth as needed 22 022 (Reorder) mg-325 mg per (pain). tabletIndications: Neoplasm related pain (acute) (chronic) ondansetron (ZOFRAN) Take 1 tablet (8 30 tablet 2 02/18/20 Discontinued 8 mg mg) by mouth 22 022 (Reorde r) tabletIndications: every 8 (eight) Squamous cell hours as needed carcinoma of left for nausea or lung vomiting. Nicoderm CQ 21 mg/24 Apply 2 patch to 56 patch 0 02/23/20 Discontinued hr transdermal skin and change 22 022 (Reorder) patchIndications: patch daily as Tobacco dependence directed for syndrome tobacco cessation (alternate sites). buPROPion Take 1 tablet 30 tablet 0 02/23/20 Discon tinued (Wellbutrin XL) 150 (150 mg) by 22 022 (Reorder) mg 24 hr mouth every tabletIndications: morning. Tobacco dependence syndrome Active Problems Problem Noted Date Malnutrition of moderate degree 02/16/2022 Squamous cell carcinoma of left lung 12/23/2021 Chronic obstructive pulmonary disease 12/23/2021 Coronary arteriosclerosis 12/23/2021 Coronary artery disease of coronary artery bypass jorge alberto t 12/23/2021 Depression NOS 12/23/2021 Chronic pain 12/23/2021 Tobacco dependence syndrome 12/17/2021 Resolved Problems Problem Noted Date Resolved Date Lung mass 12/08/2021 12/23/2021 Overview: CT CAP 11/23/21: OBINNA mass contiguous with the left hilum measuring 3 cm. Other scattered areas of micronodularity through right lung. No effusion or pneumothorax. 12 mm enlarged subcarinal lymph node. Le ft hilar mass measures 4.6 x 4.1 cm with near occlusion of lingular branch of the left PA. Prominent right hilar lymph node. Bronchoscopy 11/24/21 aborted due to desa turation, bronchospasm, bleeding. Last Assessment & Plan: She reports a year of gradually worsenin g lung function, with numerous exacerbations of COPD treated with antibiotics and steroids. During her last visit for this, in late October, she was imaged with a CT. She had not had previous imaging do ne for quite some time, and the CT shows a new left hilar mass, partially obstructing the pulmonary artery lingular takeoff as well as potential obstruction of a lingular bronchus. There may be a posto bstructive pneumonia component. Bronchoscopy was terminated due to worsened hemoptysis, and she is here for diagnosis. We discussed at length today that this h ad a high probability of being lung cancer. I think the best approach here would be to repeat bronchoscopy, potentially with endobronchial ultrasound to evaluate the mediastinal nodes. This may help t o avoid biopsying the tumor which has shown itself to bleed in the past. We will send prebiopsy labs and EKG. I have placed a referral to the cardiopulmonary center and interventional pulmonary. She is quite wheezy on exam today, but i s managed with Trelegy and rescue albuterol/ipratropium. I stressed her to continue using the Trelegy daily. Shortness of breath has been stable. She reports numerous pains, including ba ck, shoulder, and joints. With her weight loss, I will refer to the supportive care center. She has some swelling of the left lower extremity greater than the right lower extremity. We will do an ultrasound to check for clot. I have referred her to the tobacco treat ment program and counseled tobacco cessation. Encounters Date Type Specialty Care Team Description 03/19/2022 Orders Only Radiation Oncology Emily Lisa Non-small cell lung Jovanyjaimeenacho, POLITICAL CONSULTANT cancer <Unspeci fied side> (Primary Dx) 03/17/2022 Hospital Encounter Infusion Services Clarita Mcdonnell, Sq uamous cell PA carcinoma of left Urcia, Kirstin P, lung (Primar y Dx) RN 03/17/2022 Hospital Encounter Lab Clarita Mcdonnell Squamou s cell PA carcinoma of le ft lung 03/17/2022 Hospital Encounter Radiation Oncology Sukhjinder Cardoza MD 03/17/2022 Documentation Radiation Oncology Melvin Bravo MD 03/17/2022 Travel 03/16/2022 Hospital Encounter Radiation Oncology Sukhjinder Cardoza MD 03/16/2022 Travel 03/15/2022 Hospital Encounter Radiation Oncology Sukhjinder Cardoza MD 03/15/2022 Nutrition Nutrition Sukhjinder Cardoza MD Cooke, Sarah K, BRIANNA 03/15/2022 Travel 03/12/2022 Hospital Encounter Radiation Oncology Sukhjinder Cardoza MD 03/12/2022 Hospital Encounter Lab Shelly, Squamous cell MD Melvin carcinoma of laisha ng <Left side> 03/12/2022 Travel 03/11/2022 Hospital Encounter Radiation Oncology Sukhjinder Cardoza MD 03/11/2022 Travel 03/10/2022 Hospital Encounter Radiation Oncology Sukhjinder Cardoza MD 03/10/2022 Infusion Infusion Services Yoana Palacios FN P Squamous cell To, carcinoma of le ft Sue Hammer, RN lung (Prima ry Dx) 03/10/2022 Hospital Encounter Lab Yoana Palacios FNP Squamo us cell carcinoma of le ft lung 03/10/2022 Office Visit Thoracic Medicine Li Ma MD Squamous cell carcinoma of le ft lung (Primary D x) 03/10/2022 Orders Only Thoracic Medicine Li Ma MD 03/10/2022 Orders Only Thoracic Medicine Niki Harmon, Vicky 03/10/2022 Orders Only Thoracic Medicine Niki Harmonzabeth, PharmD 03/10/2022 Travel 03/09/2022 Nutrition Nutrition Sukhjinder Cardoza MD Cooke, Sarah K, BRIANNA 03/09/2022 Hospital Encounter Radiation Oncology Sukhjinder Cardoza MD 03/09/2022 Hospital Encounter Radiation Oncology Deanne Bravo MD carcinoma of le ft lung (Primary D x) 03/09/2022 Travel 03/08/2022 Hospital Encounter Radiation Oncology Sukhjinder Cardoza MD 03/08/2022 Travel 03/05/2022 Hospital Encounter Radiation Oncology Sukhjinder Cardoza MD 03/05/2022 Travel 03/04/2022 Hospital Encounter Radiation Oncology Sukhjinder Cardoza MD 03/04/2022 Travel 03/03/2022 Infusion Infusion Services Yoana Palacios, FN P Squamous cell Aliya Calvo carcinoma of left S, RN lung (Primary D x) 03/03/2022 Hospital Encounter Lab Yoana Palacios FNP Squamo us cell carcinoma of le ft lung 03/03/2022 Hospital Encounter Radiation Oncology Sukhjinder Cardoza MD 03/03/2022 Travel 03/03/2022 Orders Only Radiation Oncology Demarcus Kern, Squamous cell Matthew carcinoma of laisha ng <Left side> (Pr imary Dx) 03/02/2022 Nutrition Sukhjinder Kearney MD Cooke, Sarah K, BRIANNA 03/02/2022 Hospital Encounter Radiation Oncology Deanne Bravo MD carcinoma of le ft lung (Primary D x) 03/02/2022 Hospital Encounter Radiation Oncology Sukhjinder Cardoza MD 03/02/2022 Travel 02/26/2022 Hospital Encounter Radiation Oncology Sukhjinder Cardoza MD 02/26/2022 Travel 02/25/2022 Hospital Encounter Radiation Oncology Deanne Bravo MD carcinoma of laisha ng <Left side> 02/24/2022 Hospital Encounter Infusion Services Yoana Palacios, SHIPPING PROCESSOR Squamous cell White, Cheli carcinoma of left T, RN lung (Primary D x) 02/24/2022 Hospital Encounter Radiation Oncology Sukhjinder Cardoza MD 02/24/2022 Hospital Encounter Lab Yoana Palacios FNP Squamo us cell carcinoma of left lung; Squamous cell c arcinoma of lung <Left side> 02/24/2022 Orders Only Thoracic Medicine Jihan Chavez, PharmD 02/24/2022 Orders Only Thoracic Medicine Li Ma MD 02/24/2022 Travel 02/24/2022 Orders Only Radiation Oncology MagdielPamela tristan Squamo us cell C carcinoma of laisha ng <Left side> (Pr imary Dx) 02/23/2022 Nutrition Nutrition Sukhjinder Cardoza MD Cooke, Sarah K, BRIANNA 02/23/2022 Hospital Encounter Radiation Oncology Sukhjinder Cardoza MD 02/23/2022 Hospital Encounter Radiation Oncology Deanne Bravo MD carcinoma of le ft lung (Primary D x) 02/23/2022 Travel 02/22/2022 Hospital Encounter Radiation Oncology Sukhjinder Cardoza MD 02/22/2022 Orders Only Radiation Oncology AmgdielPamela Squamo us cell C carcinoma of laisha ng <Left side> (Pr imary Dx) 02/22/2022 Orders Only Radiation Oncology Demarcus Kern, Squamous cell Matthew carcinoma of laisha ng <Left side> (Pr imary Dx) 02/19/2022 Hospital Encounter Radiation Oncology Sukhjinder Cardoza MD 02/19/2022 Travel 02/18/2022 Hospital Encounter Radiation Oncology Sukhjinder Cardoza MD 02/18/2022 Travel 02/17/2022 Infusion Infusion Services Yoana Palacios FN P Squamous cell Comple, [place], carcinoma of left RN lung (Primary D x) 02/17/2022 Office Visit Thoracic Medicine Li Ma MD Squamous cell carcinoma of le ft lung 02/17/2022 Hospital Encounter Lab Yoana Palacios FNP Squamo us cell carcinoma of le ft lung 02/17/2022 Hospital Encounter Radiation Oncology Sukhjinder Cardoza MD 02/17/2022 Orders Only Thoracic Medicine Clarita Mcdonnell, Squamous cell PA carcinoma of le ft lung 02/17/2022 Travel 02/16/2022 Nutrition Nutrition Sukhjinder Cardoza MD Cooke, Sarah K, BRIANNA 02/16/2022 Hospital Encounter Radiation Oncology Sukhjinder Cardoza MD 02/16/2022 Hospital Encounter Radiation Oncology Deanne Bravo MD carcinoma of le ft lung (Primary D x) 02/16/2022 Orders Only Radiation Oncology Demarcus Erlin, Squamous cell Matthew carcinoma of laisha ng <Left side> (Pr imary Dx) 02/16/2022 Travel 02/15/2022 Hospital Encounter Radiation Oncology Sukhjinder Cardoza MD 02/15/2022 Orders Only Thoracic Medicine Clarita Mcdonnell PA 02/15/2022 Travel 02/12/2022 Emergency Emergency Medicine Juani Lisa MD Squam ous cell carcinoma of left lung (Primary Dx); Confusion 02/12/2022 Hospital Encounter Radiation Oncology Sukhjinder Cardoza MD 02/12/2022 Hospital Encounter Radiation Oncology Sukhjinder Cardoza MD 02/12/2022 Travel 02/12/2022 Telephone Radiation Oncology Erin Monroe RN 02/11/2022 Hospital Encounter Radiation Oncology Sukhjinder Cardoza MD 02/11/2022 Travel 02/10/2022 Hospital Encounter Infusion Services Tresa Brewster quamous melva Brennan RN AGPCLISHA carcinoma of left Borje, Edwardo S, lung (Primar y Dx) RN 02/10/2022 Hospital Encounter Lab Yoana Palacios, SHIPPING PROCESSOR Squamo us cell carcinoma of le ft lung 02/10/2022 Hospital Encounter Radiation Oncology Sukhjinder Cardoza MD 02/10/2022 Orders Only Thoracic Medicine Tresa Brewster RN AGPCNP 02/10/2022 Travel 02/09/2022 Hospital Encounter Radiation Oncology Sukhjinder Cardoza MD 02/09/2022 Hospital Encounter Radiation Oncology Deanne Bravo MD carcinoma of le ft lung (Primary D x) 02/09/2022 Orders Only Radiation Oncology Emily Lisa Oral thru sh (Primary Chunyi, POLITICAL CONSULTANT Dx) 02/09/2022 Travel 02/08/2022 Hospital Encounter Radiation Oncology Sukhjinder Cardoza MD 02/08/2022 Nutrition Nutrition Sukhjinder Cardoza MD Cooke, Sarah K, RD 02/08/2022 Travel 02/08/2022 Orders Only Thoracic Medicine Yoana Palacios, SHIPPING PROCESSOR Squamou s cell carcinoma of le ft lung (Primary D x) 02/05/2022 Hospital Encounter Radiation Oncology Sukhjinder Cardoza MD 02/05/2022 Orders Only Thoracic Medicine Tresa Brewster s cell E, RN AGPCNP carcinoma of le ft lung (Primary D x) 02/05/2022 Orders Only Thoracic Medicine Greta Gould PA 02/05/2022 Orders Only Thoracic Medicine Michaela Grier, MANAGER MEDIA RELATIONS 02/05/2022 Travel 02/05/2022 Orders Only Thoracic Medicine Xin Ellington, MANAGER MEDIA RELATIONS 02/04/2022 Hospital Encounter Radiation Oncology Sukhjinder Cardoza MD 02/04/2022 Travel 02/03/2022 Infusion Infusion Services Clarita Mcdonnell, Squamous cell PA carcinoma of left Carlo, Alka M, lung (Primar y Dx) RN 02/03/2022 Hospital Encounter Radiation Oncology Sukhjinder Cardoza MD 02/03/2022 Hospital Encounter Lab Clarita Mcdonnell Squamou s cell PA carcinoma of le ft lung 02/03/2022 Travel 02/02/2022 Hospital Encounter Radiation Oncology Sukhjinder Cardoza MD 02/02/2022 Hospital Encounter Radiation Oncology Deanne Bravo MD carcinoma of le ft lung (Primary D x) 02/02/2022 Orders Only Radiation Oncology Pamela Veloz us cell C carcinoma of le ft lung (Primary D x) 02/02/2022 Travel 02/01/2022 Hospital Encounter Radiation Oncology Sukhjinder Cardoza MD 02/01/2022 Travel 01/29/2022 Ancillary Procedure Radiology Clarita Mcdonnell Squamo us cell PA carcinoma of le ft lung 01/29/2022 Travel 01/28/2022 Clinical Support Sukhjinder Roland Suspected JUSTIN Pinon MD (Primary Dx) Phyllis Mcnamara, NAIN 01/28/2022 Travel 01/27/2022 Orders Only Thoracic Medicine Freddie Jolly MD 01/27/2022 Documentation Radiation Oncology Melvin Bravo MD 01/27/2022 Orders Only Thoracic Medicine Clarita Mcdonnell, Squamous cell PA carcinoma of le ft lung (Primary D x) 01/26/2022 Hospital Encounter Radiation Oncology Sukhjinder Cardoza MD 01/20/2022 Orders Only Thoracic Medicine Clarita Mcdonnell PA 01/11/2022 Hospital Encounter Radiology Melvin Bravo MD 01/11/2022 Hospital Encounter Cardiology Melvin Bravo MD 01/11/2022 Hospital Encounter Cardiology Emily Lisa Non-small cell lung Demetra, POLITICAL CONSULTANT cancer <Unspeci fied side> 01/11/2022 Hospital Encounter Radiology Melvin Bravo MD 01/11/2022 Hospital Encounter Radiology Dayne Bravo MD carcinoma of laisha ng <Left side> 01/11/2022 Travel 01/08/2022 Telephone Cardiology Michael Her RN 01/08/2022 Documentation Cardiology Mary Grace Wilson 01/07/2022 Hospital Encounter Cardiology Dayne Bravo MD carcinoma of laisha ng <Left side> 01/07/2022 Travel 01/06/2022 Infusion Infusion Services Clarita Mcdonnell, Squamous cell PA carcinoma of left Mangulabnan, lung (Primary D x) Estella Hernandez, RN 01/06/2022 Office Visit Thoracic Medicine Li Ma MD Squamous cell carcinoma of le ft lung (Primary D x) 01/06/2022 Hospital Encounter Lab Clarita Mcdonnell Squamou s cell carcinoma of left lung; PA Squamous cell c arcinoma of lung <Left side>; Encounter for s creening for cardiovascular disorder 01/06/2022 Hospital Encounter Radiation Oncology Deanne Bravo MD carcinoma of alisha ng <Left side> 01/06/2022 Orders Only Radiation Oncology Emily Lisa Non-small cell lung Jovanynyi, POLITICAL CONSULTANT cancer <Unspeci fied side> (Primary Dx) 01/06/2022 Orders Only Radiation Oncology Pamela Veloz us cell C carcinoma of laisha ng <Left side> (Pr imary Dx) 01/06/2022 Documentation Radiation Oncology Pamela Veloz 01/06/2022 Orders Only Thoracic Medicine Clarita Mcdonnell PA 01/06/2022 Travel 01/05/2022 Orders Only Radiation Oncology Pamela Veloz us cell C carcinoma of laisha ng <Left side> (Pr imary Dx) 01/04/2022 Orders Only Radiation Oncology Pamela Veloz us cell C carcinoma of laisha ng <Left side> (Pr imary Dx) 01/01/2022 Orders Only Radiation Oncology Demarcus Kern, Encounter for Matthew screening for cardiovascular disorder (Prima ry Dx) 12/31/2021 Orders Only Radiation Oncology Demarcus Kern, Squamous cell Matthew carcinoma of laisha ng <Left side> (Pr imary Dx) 12/30/2021 Orders Only Thoracic Medicine Li Ma MD 12/29/2021 Hospital Encounter Radiation Oncology Deanne Bravo MD carcinoma of le ft lung 12/29/2021 Hospital Encounter Radiation Oncology Deanne Bravo MD carcinoma of le ft lung (Primary D x) 12/29/2021 Documentation Radiation Oncology Melvin Bravo MD 12/29/2021 Orders Only Thoracic Medicine Clarita Mcdonnell, Squamous cell PA carcinoma of le ft lung (Primary D x) 12/29/2021 Documentation Radiation Oncology Demarcus Kern, Matthew 12/29/2021 Documentation Radiation Oncology Melvin Bravo MD 12/29/2021 Orders Only Radiation Oncology Emily Lisa Non-small cell lung Jovanynyi, POLITICAL CONSULTANT cancer <Unspeci fied side> (Primary Dx) 12/29/2021 Travel 12/28/2021 Hospital Encounter Adan Ji MD 12/25/2021 Orders Only Thoracic Surgery Alexia Schultz, Chronic pain PA (Primary Dx) 12/25/2021 Orders Only Radiation Oncology Melvin Bravo MD 12/25/2021 Orders Only Radiation Oncology Dayne Bravo MD carcinoma of le ft lung (Primary D x) 12/24/2021 Office Visit Thoracic Surgery Michael, Carcinoma, NOS of upper lobe, lung <Left>; MD Carter 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 12/24/2021 Travel 12/23/2021 Ancillary Procedure Radiology Zarina, Chuy Carcin pj, NOS of F, MD upper lobe, meena g <Left> 12/23/2021 Hospital Encounter Radiation Oncology Chuy Srinivasan S quamous cell carcinoma of left lung (Primary Dx); MD Ruth Ann Carcinoma, NOS of upper lobe, lung <Left > Melvin Bravo MD 12/23/2021 Hospital Encounter Lab Clarita Mcdonnell Squamou s cell PA carcinoma of le ft lung 12/23/2021 Office Visit Thoracic Medicine Li Ma MD Squamous cell carcinoma of left lung (Primary Dx); Carcinoma, NOS of upper lobe, lung <Left> 12/23/2021 Orders Only Thoracic Surgery Alexia Schultz PA 12/23/2021 Orders Only Thoracic Medicine Clarita Mcdonnell, Squamous cell PA carcinoma of le ft lung (Primary D x) 12/23/2021 Travel 12/22/2021 Ancillary Procedure Radiology Chuy Srinivasan Carcin pj, NOS of MD Ruth Ann upper lobe, meena g <Left> 12/22/2021 Travel 12/17/2021 Telephone Pulmonology Baldemar Franklin MD 12/15/2021 Anesthesia Event Pulmonology Soto Taveras MD Kim, Nuri, BRIANNA 12/15/2021 Surgery Pulmonology Chuy Srinivasan BRONCHOSCOPY WITH MD Ruth Ann EBUS 3 OR MORE NODES 12/15/2021 Hospital Encounter Pulmonology Chuy Srinivasan Lung ma ss MD Ruth Ann 12/15/2021 Orders Only Radiology Celia Ellis APN 12/15/2021 Orders Only Pulmonology Rigoberto, Carcinoma, NOS of MD Baldemar upper lobe, lung <Left> (Primary Dx) 12/15/2021 Travel 12/14/2021 Anesthesia Event Anesthesiology Agustín Mc PA 12/14/2021 POEM Appointments Anesthesiology Sukhjinder Cardoza MD 12/14/2021 Office Visit Pulmonology Ethan Askew MD Lung mass (Pr imary Dx); Hypoxemia; Chronic obstruc tive pulmonary disease, not otherwise specified 12/14/2021 Hospital Encounter Pulmonology Ethan Askew MD Hypoxem ia 12/14/2021 Hospital Encounter Pulmonology Ethan Askew MD Hypoxem ia 12/14/2021 Clinical Support Covid Sukhjinder Cardoza Suspected COVID-19 (Primary Dx); MD Zi Lung mass Peter Dennis RN 12/14/2021 Documentation Jeff Lovell RN 12/14/2021 Travel 12/11/2021 Hospital Encounter Cardiology Sukhjinder Cardoza MD 12/11/2021 Hospital Encounter Radiology Sukhjinder Cardoza MD 12/11/2021 Travel 12/09/2021 Prep for Surgery Pulmonology Mackenney, Lung mass ( Primary Noni, YE Dx) 12/08/2021 Ancillary Procedure Radiology Sukhjinder Cardoza MD 12/08/2021 Ancillary Procedure Radiology Sukhjinder Cardoza MD 12/08/2021 Ancillary Procedure Radiology Sukhjinder Cardoza MD 12/08/2021 Hospital Encounter Lab Sukhjinder Cardoza MD 12/08/2021 Office Visit Internal Medicine Sukhjinder Cardoza Lung mass (Primary MD Zi Dx) 12/08/2021 NPR Patient Access Sukhjinder Cardoza MD 12/08/2021 Travel after 03/21/2021 Surgical History Surgery Date Site/Laterality Comments APPENDECTOMY 08/29/1978 - 08/28/1979 CORONARY ARTERY BYPASS 08/29/2016 - triple by pass GRAFT 08/28/2017 CYST REMOVAL 08/29/1979 - Bilateral wrist 08/28/1980 [facility] EBUS GUIDED 12/15/2021 N/A Procedure : BRONCHOSCOPY SAMPL 3/> NODE WITH EBUS 3 OR M ORE STATION/STRUX NODES; Surgeon: Chuy Srinivasan MD; Lo cation: MAIN PULM PROC; Service: PULMONARY Medical History Medical History Date Comments Hypertension 2008 Myocardial infarction 2017 Peripheral vascular disease 2017 bi pass Neuropathy 2011 Asthma 2001 Chronic bronchitis 2018 Pneumonia 2021 Arthritis 2021 Depressive disorder 2010 Anxiety 2010 Basal cell carcinoma of skin 2020 NOSE AND LE GS Chronic obstructive pulmonary disease Screening mammography 2009 WNL per patient Routine pap smear last date unknown by patient Family History Medical History Relation Name Comments Atrial fibrillation Brother Coronary artery disease Brother -Other cancer Father joseph argueta bladder Bladder Cancer Father joseph argueta Heart failure Maternal Uncle 1 Bone cancer Maternal Uncle 2 Coronary artery disease Mother Diabetes Mother Alzheimer's disease Paternal Grandfather Colon cancer Paternal Uncle Relation Name Status Comments Brother Father joseph argueta Maternal Uncle 1 Maternal Uncle 2 Mother Paternal Grandfather Paternal Uncle Social History Tobacco Use Types Packs/Day Years Used Date Former Smoker Cigarettes 0.75 37 1984 - 022 Smokeless Tobacco: Never Used Tobacco Cessation: Counseling Given: Yes Alcohol Use Standard Drinks/Week Comments Yes 3 (1 standard drink = 0.6 oz pure 2-.3 e very two weeks on average alcohol) Alcohol Habits Answer Date Recorded How often do you have a drink 2-3 times a week 12/08/2021 containing alcohol? How many drinks containing alcohol do Not asked you have on a typical day when you are drinking? How often do you have six or more Never 2021 drinks on one occasion? Comment: 2-.3 every two weeks on average 12/18/19 22 Education Answer Date Recorded What is the highest level of school you have High school gra duate 12/08/2021 completed or the highest degree you have received? Sex Assigned at Date Recorded Female 11/25/2021 3:52 PM CDT Job Start Date Occupation Industry Not on file Not on file Not on file COVID-19 Exposure Response Date Recorded In the last 10 days, have you been in contact with No / Unsu re 03/17/2022 2:08 PM CDT someone who was confirmed or suspected to have Coronavirus/COVID-19? Obstetrics History Last Filed Vital Signs Vital Sign Reading Time Taken Comments Blood Pressure 122/72 03/17/2022 5:27 PM CDT Pulse 87 03/17/2022 5:27 PM CDT Temperature 36.8 C (98.2 F) 03/17/2022 5:27 PM CDT Respiratory Rate 18 03/17/2022 5:27 PM CDT Oxygen Saturation 97% 03/17/2022 5:27 PM CDT Inhaled Oxygen Concentration - - Weight 50.7 kg (111 lb 12.4 oz) 03/17/2022 5:27 PM CDT Height 157 cm (5' 1.81") 03/17/2022 5:27 PM CDT Body Mass Index 20.57 03/17/2022 5:27 PM CDT Plan of Treatment Date Type Specialty Care Team Description 04/14/2022 Ancillary Procedure Radiology Paulie Mcdonnell, NANNETTE [address] [place], [place] [address] (Wo rk) 04/14/2022 Appointment Lab Li Ma MD [address] [place], [place] [address] (Wo rk) 04/14/2022 Office Visit Thoracic Medicine Li Ma MD [address] [place], [place] [address] (Wo rk) 04/14/2022 Appointment Infusion Services Li Ma MD [address] [place], [place] [address] (Wo rk) 2022 Ancillary Procedure Radiology Emily Lisa, LISHA [address] [place], [place] [address] (Wo rk) 07/20/2022 Appointment Radiation Oncology Jhoana Bravo MD [address] [place], [place] [address] (Wo rk) Health Maintenance Due Date Last Done Comments COVID-19 Vaccination (3 - Pfizer risk 12/13/2020 11/15/2020 , 10/25/2020 series) Procedures Procedure Name Priority Date/Time Associated Diagnosis Comme nts .GLOMERULAR FILTRATION Routine 03/17/2022 2:04 Squamous cell Results for this RATE PM CDT carcinoma of left procedure are in lung the results section. SERUM CREATININE Routine 03/17/2022 2:04 Squamous cell Result s for this PM CDT carcinoma of left procedure are in lung the results section. MANUAL DIFFERENTIAL Routine 03/17/2022 2:04 Squamous cell Res ults for this PM CDT carcinoma of left procedure are in lung the results section. Results CBC Routine 03/17/2022 2:04 Squamous cell Results fo r this PM CDT carcinoma of left procedure are in lung the results section. GLUCOSE, RANDOM Routine 03/17/2022 2:04 Squamous cell Results for this PM CDT carcinoma of left procedure are in lung the results section. SERUM CREATININE Routine 03/17/2022 2:04 Squamous cell PM CDT carcinoma of left lung BLOOD UREA NITROGEN Routine 03/17/2022 2:04 Squamous cell Res ults for this PM CDT carcinoma of left procedure are in lung the results section. MAGNESIUM LEVEL Routine 03/17/2022 2:04 Squamous cell Results for this PM CDT carcinoma of left procedure are in lung the results section. ELECTROLYTE PANEL Routine 03/17/2022 2:04 Squamous cell Resul ts for this PM CDT carcinoma of left procedure are in lung the results section. COMPLETE BLOOD COUNT W/ Routine 03/17/2022 2:04 Squamous cell DIFFERENTIAL PM CDT carcinoma of left lung RESEARCH PROTOCOL Routine 03/12/2022 12:41 Squamous cell Resul ts for this [id number] PM CDT carcinoma of lung procedure are in <Left side> the results section. .GLOMERULAR FILTRATION Routine 03/10/2022 9:52 Squamous cell Results for this RATE AM CDT carcinoma of left procedure are in lung the results section. SERUM CREATININE Routine 03/10/2022 9:52 Squamous cell Result s for this AM CDT carcinoma of left procedure are in lung the results section. GLUCOSE, RANDOM Routine 03/10/2022 9:52 Squamous cell Results for this AM CDT carcinoma of left procedure are in lung the results section. SERUM CREATININE Routine 03/10/2022 9:52 Squamous cell AM CDT carcinoma of left lung BLOOD UREA NITROGEN Routine 03/10/2022 9:52 Squamous cell Res ults for this AM CDT carcinoma of left procedure are in lung the results section. MAGNESIUM LEVEL Routine 03/10/2022 9:52 Squamous cell Results for this AM CDT carcinoma of left procedure are in lung the results section. ELECTROLYTE PANEL Routine 03/10/2022 9:52 Squamous cell Resul ts for this AM CDT carcinoma of left procedure are in lung the results section. MANUAL DIFFERENTIAL Routine 03/10/2022 9:34 Squamous cell Res ults for this AM CDT carcinoma of left procedure are in lung the results section. Results CBC Routine 03/10/2022 9:34 Squamous cell Results fo r this AM CDT carcinoma of left procedure are in lung the results section. COMPLETE BLOOD COUNT W/ Routine 03/10/2022 9:34 Squamous cell DIFFERENTIAL AM CDT carcinoma of left lung .GLOMERULAR FILTRATION Routine 03/03/2022 2:48 Squamous cell Results for this RATE PM CDT carcinoma of left procedure are in lung the results section. SERUM CREATININE Routine 03/03/2022 2:48 Squamous cell Result s for this PM CDT carcinoma of left procedure are in lung the results section. MANUAL DIFFERENTIAL Routine 03/03/2022 2:48 Squamous cell Res ults for this PM CDT carcinoma of left procedure are in lung the results section. Results CBC Routine 03/03/2022 2:48 Squamous cell Results fo r this PM CDT carcinoma of left procedure are in lung the results section. GLUCOSE, RANDOM Routine 03/03/2022 2:48 Squamous cell Results for this PM CDT carcinoma of left procedure are in lung the results section. SERUM CREATININE Routine 03/03/2022 2:48 Squamous cell PM CDT carcinoma of left lung BLOOD UREA NITROGEN Routine 03/03/2022 2:48 Squamous cell Res ults for this PM CDT carcinoma of left procedure are in lung the results section. MAGNESIUM LEVEL Routine 03/03/2022 2:48 Squamous cell Results for this PM CDT carcinoma of left procedure are in lung the results section. ELECTROLYTE PANEL Routine 03/03/2022 2:48 Squamous cell Resul ts for this PM CDT carcinoma of left procedure are in lung the results section. COMPLETE BLOOD COUNT W/ Routine 03/03/2022 2:48 Squamous cell DIFFERENTIAL PM CDT carcinoma of left lung .GLOMERULAR FILTRATION Routine 02/24/2022 9:25 Squamous cell Results for this RATE AM CDT carcinoma of left procedure are in lung the results section. SERUM CREATININE Routine 02/24/2022 9:25 Squamous cell Result s for this AM CDT carcinoma of left procedure are in lung the results section. MANUAL DIFFERENTIAL Routine 02/24/2022 9:25 Squamous cell Res ults for this AM CDT carcinoma of left procedure are in lung the results section. Results CBC Routine 02/24/2022 9:25 Squamous cell Results fo r this AM CDT carcinoma of left procedure are in lung the results section. TROPONIN T Routine 02/24/2022 9:25 Squamous cell Results fo r this AM CDT carcinoma of lung procedure are in <Left side> the results section. RESEARCH PROTOCOL Routine 02/24/2022 9:25 Squamous cell Resul ts for this [id number] AM CDT carcinoma of lung procedure are in <Left side> the results section. GLUCOSE, RANDOM Routine 02/24/2022 9:25 Squamous cell Results for this AM CDT carcinoma of left procedure are in lung the results section. SERUM CREATININE Routine 02/24/2022 9:25 Squamous cell AM CDT carcinoma of left lung BLOOD UREA NITROGEN Routine 02/24/2022 9:25 Squamous cell Res ults for this AM CDT carcinoma of left procedure are in lung the results section. MAGNESIUM LEVEL Routine 02/24/2022 9:25 Squamous cell Results for this AM CDT carcinoma of left procedure are in lung the results section. ELECTROLYTE PANEL Routine 02/24/2022 9:25 Squamous cell Resul ts for this AM CDT carcinoma of left procedure are in lung the results section. COMPLETE BLOOD COUNT W/ Routine 02/24/2022 9:25 Squamous cell DIFFERENTIAL AM CDT carcinoma of left lung .GLOMERULAR FILTRATION Routine 02/17/2022 10:29 Squamous cell Results for this RATE AM CDT carcinoma of left procedure are in lung the results section. SERUM CREATININE Routine 02/17/2022 10:29 Squamous cell Result s for this AM CDT carcinoma of left procedure are in lung the results section. MANUAL DIFFERENTIAL Routine 02/17/2022 10:29 Squamous cell Res ults for this AM CDT carcinoma of left procedure are in lung the results section. Results CBC Routine 02/17/2022 10:29 Squamous cell Results fo r this AM CDT carcinoma of left procedure are in lung the results section. GLUCOSE, RANDOM Routine 02/17/2022 10:29 Squamous cell Results for this AM CDT carcinoma of left procedure are in lung the results section. SERUM CREATININE Routine 02/17/2022 10:29 Squamous cell AM CDT carcinoma of left lung BLOOD UREA NITROGEN Routine 02/17/2022 10:29 Squamous cell Res ults for this AM CDT carcinoma of left procedure are in lung the results section. MAGNESIUM LEVEL Routine 02/17/2022 10:29 Squamous cell Results for this AM CDT carcinoma of left procedure are in lung the results section. ELECTROLYTE PANEL Routine 02/17/2022 10:29 Squamous cell Resul ts for this AM CDT carcinoma of left procedure are in lung the results section. COMPLETE BLOOD COUNT W/ Routine 02/17/2022 10:29 Squamous cell DIFFERENTIAL AM CDT carcinoma of left lung URINALYSIS MICROSCOPIC Routine 02/12/2022 12:26 R esults for this PM CDT procedure are i n the results section. URINALYSIS WITH Now 02/12/2022 12:26 Results for this MICROSCOPIC IF PM CDT procedure are in INDICATED the results section. URINE CULTURE Now 02/12/2022 12:26 Results fo r this PM CDT procedure are i n the results section. POC GLUCOSE SCREEN Routine 02/12/2022 11:22 Resul ts for this AM CDT procedure are i n the results section. POC VENOUS BLOOD GAS + Routine 02/12/2022 11:00 R esults for this LACTATE AM CDT procedure are i n the results section. FRACTIONATED BILIRUBIN Now 02/12/2022 10:52 R esults for this AM CDT procedure are i n the results section. TOTAL PROTEIN Now 02/12/2022 10:52 Results fo r this AM CDT procedure are i n the results section. ASPARTATE Now 02/12/2022 10:52 Results for this AMINOTRANSFERASE AM CDT procedure a re in the results section. ALANINE Now 02/12/2022 10:52 Results for this AMINOTRANSFERASE AM CDT procedure a re in the results section. ALKALINE PHOSPHATASE Now 02/12/2022 10:52 Res ults for this AM CDT procedure are i n the results section. ALBUMIN LEVEL Now 02/12/2022 10:52 Results fo r this AM CDT procedure are i n the results section. CALCIUM LEVEL TOTAL Now 02/12/2022 10:52 Resu lts for this AM CDT procedure are i n the results section. .GLOMERULAR FILTRATION Now 02/12/2022 10:52 R esults for this RATE AM CDT procedure are i n the results section. SERUM CREATININE Now 02/12/2022 10:52 Results for this AM CDT procedure are i n the results section. ELECTROLYTE PANEL Now 02/12/2022 10:52 Result s for this AM CDT procedure are i n the results section. BLOOD UREA NITROGEN Now 02/12/2022 10:52 Resu lts for this AM CDT procedure are i n the results section. GLUCOSE LEVEL Now 02/12/2022 10:52 Results fo r this AM CDT procedure are i n the results section. MANUAL DIFFERENTIAL STAT 02/12/2022 10:52 Resu lts for this AM CDT procedure are i n the results section. Results CBC STAT 02/12/2022 10:52 Results for this AM CDT procedure are i n the results section. LACTATE DEHYDROGENASE Now 02/12/2022 10:52 Re sults for this AM CDT procedure are i n the results section. APTT Now 02/12/2022 10:52 Results for this AM CDT procedure are i n the results section. PROTHROMBIN TIME Now 02/12/2022 10:52 Results for this AM CDT procedure are i n the results section. PHOSPHORUS LEVEL Now 02/12/2022 10:52 Results for this AM CDT procedure are i n the results section. MAGNESIUM LEVEL Now 02/12/2022 10:52 Results for this AM CDT procedure are i n the results section. COMPREHENSIVE METABOLIC Now 02/12/2022 10:52 PANEL AM CDT COMPLETE BLOOD COUNT W/ Now 02/12/2022 10:52 DIFFERENTIAL AM CDT AMMONIA LEVEL Now 02/12/2022 10:52 Results fo r this AM CDT procedure are i n the results section. COVID-19 (SARS-COV-2) Now 02/12/2022 10:52 Re sults for this ASYMPTOMATIC-LT AM CDT procedure ar e in the results section. BLOODCULTURE Now 02/12/2022 10:52 Results for this AM CDT procedure are i n the results section. CT HEAD WO CONTRAST STAT 02/12/2022 10:42 Resu lts for this AM CDT procedure are i n the results section. .GLOMERULAR FILTRATION Routine 02/10/2022 10:52 Squamous cell Results for this RATE AM CDT carcinoma of left procedure are in lung the results section. SERUM CREATININE Routine 02/10/2022 10:52 Squamous cell Result s for this AM CDT carcinoma of left procedure are in lung the results section. MANUAL DIFFERENTIAL Routine 02/10/2022 10:52 Squamous cell Res ults for this AM CDT carcinoma of left procedure are in lung the results section. Results CBC Routine 02/10/2022 10:52 Squamous cell Results fo r this AM CDT carcinoma of left procedure are in lung the results section. GLUCOSE, RANDOM Routine 02/10/2022 10:52 Squamous cell Results for this AM CDT carcinoma of left procedure are in lung the results section. SERUM CREATININE Routine 02/10/2022 10:52 Squamous cell AM CDT carcinoma of left lung BLOOD UREA NITROGEN Routine 02/10/2022 10:52 Squamous cell Res ults for this AM CDT carcinoma of left procedure are in lung the results section. MAGNESIUM LEVEL Routine 02/10/2022 10:52 Squamous cell Results for this AM CDT carcinoma of left procedure are in lung the results section. ELECTROLYTE PANEL Routine 02/10/2022 10:52 Squamous cell Resul ts for this AM CDT carcinoma of left procedure are in lung the results section. COMPLETE BLOOD COUNT W/ Routine 02/10/2022 10:52 Squamous cell DIFFERENTIAL AM CDT carcinoma of left lung .GLOMERULAR FILTRATION Routine 02/03/2022 10:07 Squamous cell Results for this RATE AM CDT carcinoma of left procedure are in lung the results section. SERUM CREATININE Routine 02/03/2022 10:07 Squamous cell Result s for this AM CDT carcinoma of left procedure are in lung the results section. MANUAL DIFFERENTIAL Routine 02/03/2022 10:07 Squamous cell Res ults for this AM CDT carcinoma of left procedure are in lung the results section. Results CBC Routine 02/03/2022 10:07 Squamous cell Results fo r this AM CDT carcinoma of left procedure are in lung the results section. GLUCOSE, RANDOM Routine 02/03/2022 10:07 Squamous cell Results for this AM CDT carcinoma of left procedure are in lung the results section. SERUM CREATININE Routine 02/03/2022 10:07 Squamous cell AM CDT carcinoma of left lung BLOOD UREA NITROGEN Routine 02/03/2022 10:07 Squamous cell Res ults for this AM CDT carcinoma of left procedure are in lung the results section. MAGNESIUM LEVEL Routine 02/03/2022 10:07 Squamous cell Results for this AM CDT carcinoma of left procedure are in lung the results section. ELECTROLYTE PANEL Routine 02/03/2022 10:07 Squamous cell Resul ts for this AM CDT carcinoma of left procedure are in lung the results section. COMPLETE BLOOD COUNT W/ Routine 02/03/2022 10:07 Squamous cell DIFFERENTIAL AM CDT carcinoma of left lung TROPONIN T Routine 02/03/2022 9:55 Squamous cell Results fo r this AM CDT carcinoma of left procedure are in lung the results section. PETCT INITIAL TREATMENT Routine 01/29/2022 11:45 Squamous cell Results for this STRATEGY AM CDT carcinoma of left procedure are in lung the results section. COVID-19 (SARS-COV-2) Routine 01/28/2022 11:00 Suspected COVID -19 Results for this PCR-ASYMPTOMATIC MC AM CDT procedur e are in the results section. NM MYOCARDIAL PERFUSION Routine 01/11/2022 3:40 Squamous cell Results for this SPECT (STRESS AND REST) PM CDT carcinoma of lung procedure are in <Left side> the results section. EKG-STRESS TEST Routine 01/11/2022 Non-small cell lung cancer <Unspecified side> ECHOCARDIOGRAM Routine 01/07/2022 3:48 Squamous cell Results for this STRAIN/SPECKLE TRACKING PM CDT carcinoma of lung procedure are in <Left side> the results section. MANUAL DIFFERENTIAL Routine 01/06/2022 10:58 Squamous cell Res ults for this AM CDT carcinoma of left procedure are in lung the results section. .GLOMERULAR FILTRATION Routine 01/06/2022 10:58 Squamous cell Results for this RATE AM CDT carcinoma of left procedure are in lung the results section. SERUM CREATININE Routine 01/06/2022 10:58 Squamous cell Result s for this AM CDT carcinoma of left procedure are in lung the results section. Results CBC Routine 01/06/2022 10:58 Squamous cell Results fo r this AM CDT carcinoma of left procedure are in lung the results section. TROPONIN T Routine 01/06/2022 10:58 Encounter for Results fo r this AM CDT screening for procedure are in cardiovascular the results disorder section. C REACTIVE PROTEIN Routine 01/06/2022 10:58 Encounter for Resu lts for this AM CDT screening for procedure are in cardiovascular the results disorder section. NT PRO BNP Routine 01/06/2022 10:58 Encounter for Results fo r this AM CDT screening for procedure are in cardiovascular the results disorder section. HEMOGLOBIN A1C Routine 01/06/2022 10:58 Encounter for Results for this AM CDT screening for procedure are in cardiovascular the results disorder section. LIPID PANEL Routine 01/06/2022 10:58 Encounter for Results fo r this AM CDT screening for procedure are in cardiovascular the results disorder section. RESEARCH PROTOCOL Routine 01/06/2022 10:58 Squamous cell Resul ts for this [id number] AM CDT carcinoma of lung procedure are in <Left side> the results section. ASPARTATE Routine 01/06/2022 10:58 Squamous cell Results fo r this AMINOTRANSFERASE AM CDT carcinoma of left proced ure are in lung the results section. ALANINE Routine 01/06/2022 10:58 Squamous cell Results fo r this AMINOTRANSFERASE AM CDT carcinoma of left proced ure are in lung the results section. BILIRUBIN TOTAL Routine 01/06/2022 10:58 Squamous cell Results for this AM CDT carcinoma of left procedure are in lung the results section. GLUCOSE, RANDOM Routine 01/06/2022 10:58 Squamous cell Results for this AM CDT carcinoma of left procedure are in lung the results section. SERUM CREATININE Routine 01/06/2022 10:58 Squamous cell AM CDT carcinoma of left lung BLOOD UREA NITROGEN Routine 01/06/2022 10:58 Squamous cell Res ults for this AM CDT carcinoma of left procedure are in lung the results section. MAGNESIUM LEVEL Routine 01/06/2022 10:58 Squamous cell Results for this AM CDT carcinoma of left procedure are in lung the results section. ELECTROLYTE PANEL Routine 01/06/2022 10:58 Squamous cell Resul ts for this AM CDT carcinoma of left procedure are in lung the results section. COMPLETE BLOOD COUNT W/ Routine 01/06/2022 10:58 Squamous cell DIFFERENTIAL AM CDT carcinoma of left lung PETCT SUBSEQUENT Routine 12/23/2021 4:54 Carcinoma, NOS of Re sults for this TREATMENT STRATEGY PM CDT upper lobe, lung proce dure are in <Left> the results section. NGS BLOOD CONTROL Routine 12/23/2021 1:13 Squamous cell Re sults for this PM CDT carcinoma of left procedure are in lung the results section. ALEX BROWN ROS1 FUSION Routine 12/23/2021 12:30 Squamous cell Resul ts for this ANALYSIS MATERIAL PM CDT carcinoma of left proce dure are in REQUEST lung the results section. ALEX BROWN RET FUSION Routine 12/23/2021 12:30 Squamous cell Result s for this ANALYSIS MATERIAL PM CDT carcinoma of left proce dure are in REQUEST lung the results section. ALEX BROWN NTRK3 FUSION Routine 12/23/2021 12:30 Squamous cell Resu lts for this ANALYSIS MATERIAL PM CDT carcinoma of left proce dure are in REQUEST lung the results section. ALEX BROWN NTRK2 FUSION Routine 12/23/2021 12:30 Squamous cell Resu lts for this ANALYSIS MATERIAL PM CDT carcinoma of left proce dure are in REQUEST lung the results section. ALEX BROWN NTRK1 FUSION Routine 12/23/2021 12:30 Squamous cell Resu lts for this ANALYSIS MATERIAL PM CDT carcinoma of left proce dure are in REQUEST lung the results section. ALEX BROWN KRAS MUTATION Routine 12/23/2021 12:30 Squamous cell Res ults for this MATERIAL REQUEST PM CDT carcinoma of left proced ure are in lung the results section. ALEX BROWN EML4/ALK FUSION Routine 12/23/2021 12:30 Squamous cell R esults for this ANALYSIS MATERIAL PM CDT carcinoma of left proce dure are in REQUEST lung the results section. ALEX BROWN EGFR MUTATION Routine 12/23/2021 12:30 Squamous cell Res ults for this MATERIAL REQUEST PM CDT carcinoma of left proced ure are in lung the results section. ALEX BROWN BRAF V600 E Routine 12/23/2021 12:30 Squamous cell Resul ts for this MUTATION MATERIAL PM CDT carcinoma of left proce dure are in REQUEST lung the results section. AP FISH ROS1 MATERIAL Routine 12/23/2021 12:30 Squamous cell REQUEST PM CDT carcinoma of left lung AP FISH RET MATERIAL Routine 12/23/2021 12:30 Squamous cell REQUEST PM CDT carcinoma of left lung AP FISH MET MATERIAL Routine 12/23/2021 12:30 Squamous cell REQUEST PM CDT carcinoma of left lung AP FISH ALK MATERIAL Routine 12/23/2021 12:30 Squamous cell REQUEST PM CDT carcinoma of left lung MRI BRAIN W WO CONTRAST Routine 12/22/2021 8:43 Carcinoma, NO S of Results for this PM CDT upper lobe, lung procedure a re in <Left> the results section. AFB CULTURE W/ SMEAR Now 12/15/2021 3:47 Res ults for this PM CDT procedure are i n the results section. PATHOLOGY BIOPSY Routine 12/15/2021 3:03 Lung mass Results for this INTERPRETATION PM CDT procedure are in the results section. CYTOLOGY IMAGE-GUIDED Routine 12/15/2021 2:59 Lung mass Re sults for this FNA INTERPRETATION PM CDT procedure are in the results section. CYTOLOGY IMAGE-GUIDED Routine 12/15/2021 2:53 Lung mass Re sults for this FNA INTERPRETATION PM CDT procedure are in the results section. CYTOLOGY IMAGE-GUIDED Routine 12/15/2021 2:49 Lung mass Re sults for this FNA INTERPRETATION PM CDT procedure are in the results section. CYTOLOGY IMAGE-GUIDED Routine 12/15/2021 2:47 Lung mass Re sults for this FNA INTERPRETATION PM CDT procedure are in the results section. CYTOLOGY IMAGE-GUIDED Routine 12/15/2021 2:44 Lung mass Re sults for this FNA INTERPRETATION PM CDT procedure are in the results section. CYTOLOGY IMAGE-GUIDED Routine 12/15/2021 2:39 Lung mass Re sults for this FNA INTERPRETATION PM CDT procedure are in the results section. BRONCHOSCOPY WITH EBUS 12/15/2021 2:10 Lung mass 3 OR MORE NODES PM CDT HP SOLID TUMOR Routine 12/15/2021 1:39 GENOMIC ASSAY FUSIONS PM CDT 2018 INTERPRETATION AND REPORT HP MDA JOSE MUTATION Routine 12/15/2021 1:39 ANALYSIS PRECISION PM CDT PANEL REPORT HP CG RET FISH Routine 12/15/2021 12:39 INTERPRETATION AND PM CDT REPORT HP CG ALK FISH Routine 12/15/2021 12:39 INTERPRETATION AND PM CDT REPORT HP CG MET FISH Routine 12/15/2021 12:39 INTERPRETATION AND PM CDT REPORT HP CG ROS1 FISH Routine 12/15/2021 12:39 INTERPRETATION AND PM CDT REPORT HP CYTOGENETICS BLOOD Routine 12/15/2021 12:39 Re sults for this COLLECTION PM CDT procedure are i n the results section. SPIROMETRY W/O Routine 12/14/2021 3:50 Hypoxemia Results f or this DILATORS, DLCO AND BODY PM CDT proc edure are in PLETHSMOGRAPHIC LUNG the res ults VOLUMES section. 6 MINUTE WALK TEST STAT 12/14/2021 3:16 Hypoxemia PM CDT COVID-19 Routine 12/14/2021 7:25 Suspected COVID-19 Resul ts for this (SARS-COV-2) PCR AM CDT procedure a re in ASYMPTOMATIC the results section. US LEG VENOUS DOPPLER Routine 12/11/2021 4:51 Lung mass Re sults for this LEFT PM CDT procedure are i n the results section. EKG, 12-LEAD Routine 12/11/2021 Lung mass (SCHEDULED) TMP HCVAB INTERP Routine 12/08/2021 5:50 Results for this PM CDT procedure are i n the results section. HEPATITIS B SURFACE AG Routine 12/08/2021 5:50 R esults for this W/CONFIRM PM CDT procedure are i n the results section. HEPATITIS B CORE TOTAL Routine 12/08/2021 5:50 R esults for this ANTIBODY PM CDT procedure are i n the results section. MANUAL DIFFERENTIAL Routine 12/08/2021 5:50 Lung mass Resu lts for this PM CDT procedure are i n the results section. Results CBC Routine 12/08/2021 5:50 Lung mass Results for this PM CDT procedure are i n the results section. FRACTIONATED BILIRUBIN Routine 12/08/2021 5:50 Lung mass R esults for this PM CDT procedure are i n the results section. TOTAL PROTEIN Routine 12/08/2021 5:50 Lung mass Results fo r this PM CDT procedure are i n the results section. ASPARTATE Routine 12/08/2021 5:50 Lung mass Results for this AMINOTRANSFERASE PM CDT procedure a re in the results section. ALANINE Routine 12/08/2021 5:50 Lung mass Results for this AMINOTRANSFERASE PM CDT procedure a re in the results section. ALKALINE PHOSPHATASE Routine 12/08/2021 5:50 Lung mass Res ults for this PM CDT procedure are i n the results section. ALBUMIN LEVEL Routine 12/08/2021 5:50 Lung mass Results fo r this PM CDT procedure are i n the results section. CALCIUM LEVEL TOTAL Routine 12/08/2021 5:50 Lung mass Resu lts for this PM CDT procedure are i n the results section. .GLOMERULAR FILTRATION Routine 12/08/2021 5:50 Lung mass R esults for this RATE PM CDT procedure are i n the results section. SERUM CREATININE Routine 12/08/2021 5:50 Lung mass Results for this PM CDT procedure are i n the results section. ELECTROLYTE PANEL Routine 12/08/2021 5:50 Lung mass Result s for this PM CDT procedure are i n the results section. BLOOD UREA NITROGEN Routine 12/08/2021 5:50 Lung mass Resu lts for this PM CDT procedure are i n the results section. GLUCOSE LEVEL Routine 12/08/2021 5:50 Lung mass Results fo r this PM CDT procedure are i n the results section. T-SPOT TUBERCULOSIS Routine 12/08/2021 5:50 Lung mass Resu lts for this PM CDT procedure are i n the results section. HISTOPLASMA ANTIBODY Routine 12/08/2021 5:50 Lung mass Res ults for this SCREEN, SERUM PM CDT procedure are in the results section. COCCIDIOIDES ANTIBODY Routine 12/08/2021 5:50 Lung mass Re sults for this PM CDT procedure are i n the results section. THYROID STIMULATING Routine 12/08/2021 5:50 Lung mass Resu lts for this HORMONE PM CDT procedure are i n the results section. HEPATITIS C VIRUS Routine 12/08/2021 5:50 Lung mass Result s for this ANTIBODY PM CDT procedure are i n the results section. HEPATITIS B CORE Routine 12/08/2021 5:50 Lung mass Results for this ANTIBODY PM CDT procedure are i n the results section. HEPATITIS B SURFACE Routine 12/08/2021 5:50 Lung mass Resu lts for this ANTIGEN, SERUM PM CDT procedure are in the results section. APTT Routine 12/08/2021 5:50 Lung mass Results for this PM CDT procedure are i n the results section. PROTHROMBIN TIME Routine 12/08/2021 5:50 Lung mass Results for this PM CDT procedure are i n the results section. COMPLETE BLOOD COUNT W/ Routine 12/08/2021 5:50 Lung mass DIFFERENTIAL PM CDT COMPREHENSIVE METABOLIC Routine 12/08/2021 5:50 Lung mass PANEL PM CDT CRYPTOCOCCAL ANTIGEN, Routine 12/08/2021 5:50 Re sults for this SERUM PATH REVIEW PM CDT procedure are in the results section. CRYPTOCOCCAL ANTIGEN, Routine 12/08/2021 5:50 Lung mass Re sults for this SERUM PM CDT procedure are i n the results section. OSI INTERVENTIONAL Routine 11/24/2021 2:13 Cancer Resul ts for this PM CDT procedure are i n the results section. OSI CT CHEST Routine 11/23/2021 2:12 Cancer Results for this PM CDT procedure are i n the results section. OSI CHEST Routine 11/22/2021 2:12 Cancer Results for this PM CDT procedure are i n the results section. after 03/21/2021 Results Glucose, Random (03/17/2022 2:04 PM CDT)Only the most recent of8 resultswithin the time period is included. P athologist Signature Glucose Random 73 70 - 199 [facility] mg/dL [facility] Comment: Effective 03/24/16, the glucose reference intervals have been updated based on [place] [employer] guidelines (Standards of Medical Care in Diabetes 2016. Diabetes Care 2016; 39: S13-S22). Fasting blood glucose: Normal: 70-99 mg/dL Impaired fasting glucose (increased risk for diabetes or pre-diabetes): 100- 125 mg/dL Diabetes mellitus: >/=126 mg/dL Random blood glucose: Normal: 70-199 mg/dL Note: Random glucose >100 mg/dL is assoc iated with increased risk for diabetes Specimen Anatomical Collection Method Collection Time Receive d Time (Source) Location / / Volume Laterality Blood 03/17/2022 2:04 03/17/2022 PM CDT 2:42 PM CDT Narrative [facility] - 2 3:11 PM CDT Within 72 hours prior to each chemothera py infusion. Clarita BRUNSON LAB BLOOD ORDERABLES Performing Organization Address [facility] Phon e Number [facility] Unless otherwise noted, [address] all lab tests performed by: Division of Pathology and Laboratory Medicine [address] [facility] ([facility]AL[facility] .Serum Creatinine (03/17/2022 2:04 PM CDT)Only the most recent of10 resultswithin the time period is included. P athologist Signature Creatinine 1.17 (H) 0.51 - 0.95 [facility] mg/dL [facility] Specimen Anatomical Collection Method Collection Time Receive d Time (Source) Location / / Volume Laterality Blood 03/17/2022 2:04 03/17/2022 PM CDT 2:42 PM CDT Narrative [facility] - 2 3:11 PM CDT Within 72 hours prior to chemotherapy in fusion. Clarita BRUNSON LAB BLOOD ORDERABLES Performing Organization Address City/[facility] Phon e Number [facility] Unless otherwise noted, [address] all lab tests performed by: Division of Pathology and Laboratory Medicine [address] (ABNORMAL) .CBC (03/17/2022 2:04 PM CDT)Only the most recent of10 resultswithin the time period is included. P athologist Signature WBC 1.7 (L) 4.0 - 11.0 [facility] K/[facility] RBC 2.79 (L) 4.00 - [place] 5.50 /[facility] Hgb 9.7 (L) 12.0 - [place] MD 16.0 gm/dL [facility] Hct 28.0 (L) 37.0 - [place] MD 47.0 % [facility] MCV 100 (H) 82 - 98 [facility] MCH 34.8 (H) 27.0 - [place] MD 31.0 pg [facility] MCHC 34.6 31.0 - [place] MD 36.0 gm/dL [facility] RDW-SD 51.0 (H) 35.1 - [facility] 46.3 fL [facility] RDW-CV 14.3 12.0 - [place] MD 15.5 % [facility] Platelet count 162 140 - 440 [facility] K/uL [facility] MPV 10.0 4.0 - 10.[address] [facility] INRBC 0.0 <=0.0 % [facility] Comment: The INRBC (instrument NRBC) value reflec ts the enumeration of nucleated red blood cells contained i n a 200uL sample of whole blood analyzed by the instrumen t. This value may differ from the NRBC value reported in a manual differential, which is based on a 100 cell differentia l. Specimen Anatomical Collection Method Collection Time Receive d Time (Source) Location / / Volume Laterality Blood 03/17/2022 2:04 03/17/2022 PM CDT 2:34 PM CDT Narrative [facility] - 2 2:44 PM CDT Within 72 hours prior to chemotherapy in fusion. Clarita BRUNSON LAB BLOOD ORDERABLES Performing Organization Address City/State/ZIP Code Phon e Number [facility] CANCER Unless otherwise noted, [place] [address] [place] all lab tests performed by: Division of Pathology and Laboratory Medicine [facility] Radha Arceo (ABNORMAL) Glomerular Filtration Rate (03/17/2022 2:04 PM CDT)Only the most recent of10 resultswithin the time period is included. athologist Signature eGFR-AA 58 (L) >=60 [facility] mL/min/1.73 [facility] sq. m Comment: Normal eGFR: >= 60 mL/min/1.73 m2 Note: The eGFR is calculated using the C KD-EPI equation. The eGFR declines with age. eGFR <60 mL/min/1.73 m2 is considered as "decreased". This equation should only be used for patients 18 and older. According to the National Kid[employer] ion's Kidney Disease Outcome Quality Initiative (KDOQI) classification and 2012 Kidney Disease Improving Global Outcomes (KDIGO) Clinical Practice Guideline, the stage of CKD should be categorized based on estimated GFR. Stage Description GFR mL/min/1. 73 m2 1 Normal or high GFR >=90 2 Mildly decreased GFR 60-89 3a Mildly to moderately decreased GFR 45-59 3b Moderately to severely decreased GFR 30-44 4 Severely decreased GFR 15-29 5 Kidney failure <15 eGFR-AYDE 50 (L) >=60 mL/min/1.73 sq. m [place] MD Walsh [facility] Comment: Normal eGFR: >= 60 mL/min/1.73 m2 Note: The eGFR is calculated using the C KD-EPI equation. The eGFR declines with age. eGFR <60 mL/min/1.73 m2 is considered as "decreased". This equation should only be used for patients 18 and older. According to the National Kid[employer] ion's Kidney Disease Outcome Quality Initiative (KDOQI) classification and 2012 Kidney Disease Improving Global Outcomes (KDIGO) Clinical Practice Guideline, the stage of CKD should be categorized based on estimated GFR. Stage Description GFR mL/min/1. 73 m2 1 Normal or high GFR >=90 2 Mildly decreased GFR 60-89 3a Mildly to moderately decreased GFR 45-59 3b Moderately to severely decreased GFR 30-44 4 Severely decreased GFR 15-29 5 Kidney failure <15 Specimen Anatomical Collection Method Collection Time Receive d Time (Source) Location / / Volume Laterality Blood 03/17/2022 2:04 03/17/2022 PM CDT 2:42 PM CDT Narrative [facility] - 2 3:11 PM CDT Within 72 hours prior to chemotherapy in fusion. Clarita BRUNSON LAB BLOOD ORDERABLES Performing Organization Address City/State/ZIP Code Phon e Number [facility] CANCER Unless otherwise noted, [place] [address] [place] all lab tests performed by: Division of Pathology and Laboratory Medicine [address] (ABNORMAL) Differential (03/17/2022 2:04 PM CDT)Only the most recent of10 resultswithin the time period is included. athologist Signature Neutrophil % 59.2 42.0 - [facility] 66.0 % [facility] Lymphocyte % 24.4 24.0 - [facility] 44.0 % [facility] Monocyte % 14.0 (H) 2.0 - 7.0 [facility] % [facility] Eosinophil % 1.2 1.0 - 4.0 [facility] % [facility] Basophil % 0.6 0.0 - 1.0 [facility] % [facility] IGRE % 0.6 (H) 0.0 - 0.4 [facility] % [facility] Comment: IGRE % count includes Metamyelo cytes, Myelocytes, and Promyelocytes. Neutrophil Abs 1.02 (L) 1.70 - 7.30 K/uL [facility] Lymphocyte Abs 0.42 (L) 1.00 - 4.80 K/uL [facility] Monocyte Abs 0.24 0.08 - 0.70 K/uL [facility] Eosinophil Abs 0.02 (L) 0.04 - 0.40 K/uL [facility] Basophil Abs 0.01 0.00 - 0.10 K/uL [facility] IG Abs 0.01 0.00 - 0.04 K/uL [facility] NACHO Hampton [facility] Specimen Anatomical Collection Method Collection Time Receive d Time (Source) Location / / Volume Laterality Blood 03/17/2022 2:04 03/17/2022 PM CDT 2:34 PM CDT Narrative [facility] - 2 2:44 PM CDT Within 72 hours prior to chemotherapy in fusion. Clarita BRUNSON LAB BLOOD ORDERABLES Performing Organization Address City/State/ZIP Code Phon e Number [facility] CANCER Unless otherwise noted, [place] [address] [place] all lab tests performed by: Division of Pathology and Laboratory Medicine [address] [facility] BUN (03/17/2022 2:04 PM CDT)Only the most recent of10 resultswithin the time period is included. athologist Signature BUN 16 6 - 23 [facility] mg/dL [facility] Specimen Anatomical Collection Method Collection Time Receive d Time (Source) Location / / Volume Laterality Blood 03/17/2022 2:04 03/17/2022 PM CDT 2:42 PM CDT Narrative [facility] - 2 3:11 PM CDT Within 72 hours prior to chemotherapy in fusion. Clarita BRUNSON LAB BLOOD ORDERABLES Performing Organization Address City/[facility]/ZIP Code Phon e Number [facility] Unless otherwise noted, [address] all lab tests performed by: Division of Pathology and Laboratory Medicine [address] Magnesium (03/17/2022 2:04 PM CDT)Only the most recent of9 resultswithin the time period is included. P athologist Signature Magnesium 1.6 1.6 - 2.6 [facility] mg/dL [facility] Specimen Anatomical Collection Method Collection Time Receive d Time (Source) Location / / Volume Laterality Blood 03/17/2022 2:04 03/17/2022 PM CDT 2:42 PM CDT Narrative [facility] - 2 3:11 PM CDT Within 72 hours prior to chemotherapy in fusion. Clarita BRUNSON LAB BLOOD ORDERABLES Performing Organization Address City/[facility]/ZIP [facility] Phon e Number [facility] CANCER Unless otherwise noted, [address] all lab tests performed by: Division of Pathology and Laboratory Medicine [address] Electrolyte panel (03/17/2022 2:04 PM CDT)Only the most recent of10 results within the time period is included. P athologist Signature Sodium Lvl 138 136 - 145 [facility] mEq/L [facility] Potassium Lvl 3.8 3.5 - 5.1 [facility] mEq/L [facility] Chloride 100 98 - 107 [facility] mEq/L [facility] CO2 25 22 - 29 [facility] mEq/L [facility] Anion Gap 13 4 - 14 [facility] mEq/L [facility] Specimen Anatomical Collection Method Collection Time Receive d Time (Source) Location / / Volume Laterality Blood 03/17/2022 2:04 03/17/2022 PM CDT 2:42 PM CDT Narrative [facility] - 2 3:11 PM CDT Within 72 hours prior to chemotherapy in fusion. Clarita BRUNSON LAB BLOOD ORDERABLES Performing Organization Address City/State/ZIP Code Phon e Number [facility] CANCER Unless otherwise noted, [address] all lab tests performed by: Division of Pathology and Laboratory Medicine [facility] Radha Arceo Research Protocol [id number] (03/12/2022 12:41 PM CDT)Only the most recent of3 resultswithin the time period is included. athologist [facility] Research Prot [id number] [facility] Specimen Anatomical Collection Method Collection Time Receive d Time (Source) Location / / Volume Laterality Blood 03/12/2022 12:41 03/12/2022 PM CDT 1:06 PM CDT Melvin Bravo MD [facility] CODES Performing Organization Address City/[facility] Phon e Number [facility] Unless otherwise noted, [address] all lab tests performed by: Division of Pathology and Laboratory Medicine [address] [place] [address] [place] Troponin T (In-House) (02/24/2022 9:25 AM CDT)Only the most recent of3 results within the time period is included. athologist [facility] Troponin T 15 <=18 ng/L [facility] Comment: < 19 ng/L Suggest retest at 3 to 6 hours later to rule out myocardial infarction >= 19 to <=52 ng/L Pos sible myocardial injury. Suggest retest at 3 hours. - a change of < 20 ng/L, retest at 6 hours - a change of >= 20 ng/L, suggestive of myocardial infarction > 52 ng/L Suggestive of myocardial infarction Critical value will be reported when cTn T is > 52 ng/L and only reported for the first in a series. Hemolyzed specimens with Hemolysis Index >100 (100 mg/dl or moderate hemolysis) may cause interferences and falsely low results. Specimen Anatomical Collection Method Collection Time Receive d Time (Source) Location / / Volume Laterality Blood 02/24/2022 9:25 02/24/2022 AM CDT 10:05 AM CDT Melvin Bravo MD LAB BLOOD ORDERABLES Performing Organization Address City/[facility]/ZIP Code Phon e Number [facility] CANCER Unless otherwise noted, [address] all lab tests performed by: Division of Pathology and Laboratory Medicine [facility] [address] (ABNORMAL) Urinalysis with Microscopic (02/12/2022 12:26 PM CDT) P athologist Signature UA WBC 27 (H) 0 - 2 /HPF [facility] UA RBC 1 0 - 2 /HPF [facility] UA Mucous NOT SEEN Not [facility] Seen-Trace [facility] /HPF UA Bacteria OCC NOT SEEN [facility] UA Squam Epi OCC None-Occas [facility] ional /[facility] UA Trans Epi OCC (A) NOT SEEN [facility] UA Hyal Cast 1 0 - 2 /LPF [facility] Specimen Anatomical Collection Method Collection Time Receive d Time (Source) Location / / Volume Laterality Urine 02/12/2022 12:26 02/12/2022 PM CDT 12:30 PM CDT Narrative [facility] - 2 1:56 PM CDT Some reporting parameters within the Urinalysis test have changed due to the implementation of new in strumentation in the [facility], allowi ng greater sensitivity of measurement. Urinalysis results reported by the [facility] using existing instrumentation, as well as Urinalysis t esting performed manually or by backup methodology at the [facility] will remain relatively unchanged. New reporting parameters and units will now be reported for all campuses. Juani Lisa MD URINE ORDERABLES Performing Organization Address City/State/ZIP Code Phon e Number [facility] CANCER Unless otherwise noted, [place] [address] [place] all lab tests performed by: Division of Pathology and Laboratory Medicine [address] (ABNORMAL) Urinalysis w/Microscopic if Indicated (02/12/2022 12:26 PM CDT) Patholo gist Method Time Signature UA Color Straw Straw-Yel [facility] UA Appear Clear Clear [facility] UA Glucose NEG NEG mg/dL [facility] UA Bili NEG NEG [facility] UA Ketones NEG NEG mg/dL [facility] UA Spec Grav 1.010 1.003 - [facility] 1.035 [facility] UA Blood NEG NEG [facility] UA pH 6.0 5.0 - 9.0 [facility] UA Protein NEG NEG mg/dL [facility] UA Urobilinogen NEG NEG [facility] UA Nitrite NEG NEG [facility] UA Leuk Est Moderate (A) NEG [facility] Specimen Anatomical Collection Method Collection Time Receive d Time (Source) Location / / Volume Laterality Urine 02/12/2022 12:26 02/12/2022 PM CDT 12:30 PM CDT Juani Lisa MD URINE ORDERABLES Performing Organization Address City/State/ZIP Code Phon e Number [facility] CANCER Unless otherwise noted, [address] all lab tests performed by: Division of Pathology and Laboratory Medicine [address] (ABNORMAL) Urine Culture (02/12/2022 12:26 PM CDT) Component Value Ref Test Analysis Performed At [facility] gist Range Method Time Signature Final Report >= 100,000 cfu/ml [place] Klebsiella NEY pneumoniae (A) [facility] Path Review - The results have been review ed and electronically signed by Pathologist: [place] Urine ARNULFO HAWKINS MD #[id number] A NDERSON (A) [facility] Organism Klebsiella [place] pneumoniae subsp NEY pneumoniae (A) [facility] Specimen Anatomical Collection Method Collection Time Receive d Time (Source) Location / / Volume Laterality Urine 02/12/2022 12:26 02/12/2022 PM CDT 1:41 PM CDT Organism Antibiotic Method Susceptibility Klebsiella *JHOANA expressed in MINIMUM INHIBITORY JHOANA: MINT pneumoniae subsp mcg/mL [facility] pneumoniae Klebsiella Ampicillin MINIMUM INHIBITORY >=32: Resista nt pneumoniae subsp [facility] pneumoniae Klebsiella Amoxicillin/Clavulanate MINIMUM INHIBITORY <=2: Susceptible pneumoniae subsp [facility] pneumoniae Klebsiella Ampicillin/Sulbactam MINIMUM INHIBITORY 4: Susce ptible pneumoniae subsp [facility] pneumoniae Klebsiella Piperacillin/Tazobactam MINIMUM INHIBITORY <=4: Susceptible pneumoniae subsp [facility] pneumoniae Klebsiella Cephalothin MINIMUM INHIBITORY <=2: Suscepti ble pneumoniae subsp [facility] pneumoniae Klebsiella Cefpodoxime MINIMUM INHIBITORY <=0.25: Susce ptible pneumoniae subsp [facility] pneumoniae Klebsiella Cefotaxime MINIMUM INHIBITORY <=1: Suscepti ble pneumoniae subsp [facility] pneumoniae Klebsiella Ceftazidime MINIMUM INHIBITORY <=1: Suscepti ble pneumoniae subsp [facility] pneumoniae Klebsiella Ceftriaxone MINIMUM INHIBITORY <=1: Suscepti ble pneumoniae subsp [facility] pneumoniae Klebsiella Cefepime MINIMUM INHIBITORY <=1: Suscepti ble pneumoniae subsp [facility] pneumoniae Klebsiella Aztreonam MINIMUM INHIBITORY <=1: Suscepti ble pneumoniae subsp [facility] pneumoniae Klebsiella Ertapenem MINIMUM INHIBITORY <=0.5: Suscep tible pneumoniae subsp [facility] pneumoniae Klebsiella Imipenem MINIMUM INHIBITORY <=0.25: Susce ptible pneumoniae subsp [facility] pneumoniae Klebsiella Meropenem MINIMUM INHIBITORY <=0.25: Susce ptible pneumoniae subsp [facility] pneumoniae Klebsiella Amikacin MINIMUM INHIBITORY <=2: Suscepti ble pneumoniae subsp [facility] pneumoniae Klebsiella Gentamicin MINIMUM INHIBITORY <=1: Suscepti ble pneumoniae subsp [facility] pneumoniae Klebsiella Tobramycin MINIMUM INHIBITORY <=1: Suscepti ble pneumoniae subsp [facility] pneumoniae Klebsiella Ciprofloxacin MINIMUM INHIBITORY <=0.25: Susce ptible pneumoniae subsp [facility] pneumoniae Klebsiella Levofloxacin MINIMUM INHIBITORY <=0.12: Susce ptible pneumoniae subsp [facility] pneumoniae Klebsiella Nitrofurantoin MINIMUM INHIBITORY 64: Intermedi ate pneumoniae subsp [facility] pneumoniae Klebsiella Trimethoprim/Sulfa MINIMUM INHIBITORY <=20: Susc eptible pneumoniae subsp [facility] pneumoniae Juani Lisa MD MICROBIOLOGY - GENERAL ORDER AMY Performing Organization Address City/State/[facility] Code Phon e Number [facility] CANCER Unless otherwise noted, [address] all lab tests performed by: Division of Pathology and Laboratory Medicine [address] [place] [address] (ABNORMAL) POC Glucose Screen (02/12/2022 11:22 AM CDT) athologist Signature POC Glucose 101 (H) 70 - 99 POC [facility] mg/dL Comment: Capillary blood samples, e.g. obtained b y fingerstick, may have inaccurate results in patients with decreased peripheral blood flow. Method description: All results are sophia ured using Electrochemistry test methodology. The glucose in the sample mixes with the reagents on the test strip. The reaction produces an electric current. The amount of current produced is proportion al to the glucose concentration in the blood. PO Sample Type Capillary POC [facility] Performing Lab [place] [facility] POC TELCO R Comment: [facility], [address] [place] [address], [place] [address]; Lab Direct or: Hayde King MD Specimen Anatomical Collection Method Collection Time Receive d Time (Source) Location / / Volume Laterality Blood 02/12/2022 11:22 02/12/2022 AM CDT 11:22 AM CDT Juani Lisa MD POCT ORDERABLES - DEVICE Performing Organization Address City/State/ZIP Code Phon e Number POC TELCOR (ABNORMAL) POC VBG+Lac (02/12/2022 11:00 AM CDT) P athologist Signature POC VB pH 7.31 7.31 - POC TEL[facility] 7.41 POC VB pCO2 61 (H) 41 - 51 POC TELCOR mmHg POC VB pO2 20 mmHg POC TELCOR POC VB TCO2 33 (H) 24 - 29 POC [facility]EL[facility] mEq/L POC VB Bicarb 31 (H) 23 - 28 POC TEL[facility] mmol/L POC VB Base Ex 3 -2 - 3 POC [facility]EL[facility] mmol/L POC VB O2 Sat 25 % POC TELCOR POC VB LAC 1.0 0.9 - 1.7 POC TELCOR mmol/L Comment: Method description: The i-STAT is an sandra lyzer used for in vitro quantification of various analytes in whole blood. The device uses a single disposable cartridge which contains microfabricated sensors, a calibration solution, fluidics system, and a waste chamber. Each test cartridge contains ch emically sensitive biosensors on a silicon chip that are configured to perform specific tests. The microfabricated sensors measure analyte concentration by an electrochemical assay. POC Sample Type Venous POC TELCOR POC Clean Dev Yes POC TELCOR Performing Lab [facility] POC TELCO R Comment: [facility], [address] [place] [id number]; Lab Direct or: Hayde King MD Specimen Anatomical Collection Method Collection Time Receive d Time (Source) Location / / Volume Laterality Blood 02/12/2022 11:00 02/12/2022 AM CDT 11:00 AM CDT Juani Lisa MD POCT ORDERABLES - DEVICE Performing Organization Address City/State/ZIP Code Phon e Number POC TELCOR COVID-19 (SARS-CoV-2)Asymptomatic-LT (02/12/2022 10:52 AM CDT) Patholo gist Method Time Signature COVID19 Not Detected Not Detected [place] (SARS-CoV-2) [facility] COVID19 SARS Inpatient [place] Indication Admission [facility] Covid 19 See Note [place] Comment [facility] Comment: The chika SARS-CoV-2 nucleic acid test f or use on the chika Anitha System is a real-time RT-PCR assay intended for the qualitative detection of SARS-CoV-2 (COVID-19) viral RNA in nasopharyngeal swabs from either individuals suspected of COVID-1 9 by their healthcare provider or from any individu al, including individuals without symptoms or other reasons to suspect COVID-19. A fact sheet for patients provided by the associate medical director ([employer]) can be reviewed at: https://www.fda.gov/media/355932/rene cerda A fact sheet for Health Care providers is provided by the associate medical director ([employer]) and can be reviewed at: https://www.fda.gov/media/703900/download Results must be interpreted within the c ontext of all relevant clinical and laboratory findings and should not form the sole basis for a diagnosis or treatment decision. Positive results do not rule out bacterial infection or co- infection with other viruses. Negative results do not preclud e SARS-CoV-2 infection and must be combined with clinical observations, patient history, and/or epidemiological information. This assay has been authorized by the A for use only under Emergency Use Authorization (EUA) in laboratories that have been CLIA-certified to perform moderate-complexity and high-complexity tests. The Microbiology Laboratory at [facility], CLIA Accreditation #[id number] a [facility] Accreditation #[id number], verified the performance characteristics of this assay. Internal controls are used to monitor all stages of the test process. Specimen (Source) Anatomical Collection Method Collection Time Re ceived Time Location / / Volume Laterality Nasopharyngeal Swab 02/12/2022 10:52 01/27 AM CDT 11:58 AM CDT Juani Lisa MD MICROBIOLOGY - GENERAL ORDER AMY Performing Organization Address City/State/ZIP Code Phon e Number [facility] Unless otherwise noted, [place] [address] [place] all lab tests performed by: Division of Pathology and Laboratory Medicine [facility] Fractionated Bilirubin (02/12/2022 10:52 AM CDT)Only the most recent of2 results within the time period is included. athologist Signature Bili Total 0.3 <=1.2 mg/dL [place] MD [facility] Comment: Indocyanine Green (ICG) may cause falsel y elevated bilirubin results. Total and direct bilirubin must not be measured from samples containing indocyanine green. False elevation of total bilirubin can b e seen in patients with IgG concentrations above 28 g/L. Bili Direct <0.2 <=0.3 mg/dL [place] MD [facility] Comment: Indocyanine Green (ICG) may cau se falsely elevated bilirubin results. Total and direct bilirubin must not be measure d from samples containing indocyanine green. Bili Indirect See Note 0.0 - 0.9 mg/dL [place] MD [facility] Comment: Unable to calculate Indirect Bi lirubin result due to some parameters are outside reportable range Specimen Anatomical Collection Method Collection Time Receive d Time (Source) Location / / Volume Laterality Blood 02/12/2022 10:52 02/12/2022 AM CDT 11:04 AM CDT Juani Lisa MD LAB BLOOD ORDERABLES Performing Organization Address City/[facility]/ZIP Code Phon e Number [facility] Unless otherwise noted, [address] all lab tests performed by: Division of Pathology and Laboratory Medicine [facility]5 [facility] aPTT (02/12/2022 10:52 AM CDT)Only the most recent of2 resultswithin the time period is included. P athologist Signature aPTT 28.2 22.8 - 34.2 [facility] Specimen Anatomical Collection Method Collection Time Receive d Time (Source) Location / / Volume Laterality Blood 02/12/2022 10:52 02/12/2022 AM CDT 11:03 AM CDT Juani Lisa MD LAB BLOOD ORDERABLES Performing Organization Address City/State/ZIP Code Phon e Number [facility] Unless otherwise noted, [address] all lab tests performed by: Division of Pathology and Laboratory Medicine [address] [employer] [address] Blood Culture (02/12/2022 10:52 AM CDT) Component Value Ref Test Analysis Performed At Patholo gist Range Method Time Signature Final Report No growth [facility] Path Review - Culture yield may be affecte d by sample quality, prior treatment, and transportation conditions. AK MD Gay/Isolmildred ... NEY or The results have been reviewed and electronically signed b y Pathologist: CANCER Godwin London, MD, PhD #[id number] C ENTER Specimen Anatomical Collection Method Collection Time Receive d Time (Source) Location / / Volume Laterality Blood 02/12/2022 10:52 02/12/2022 (Venipuncture-Ri AM CDT 12:01 PM CD T ght) Comment: arm Juani Lisa MD MICROBIOLOGY - GENERAL ORDER AMY Performing Organization Address City/[facility]/ZIP Code Phon e Number [facility] Unless otherwise noted, [address] all lab tests performed by: Division of Pathology and Laboratory Medicine [address] [place] [address] Prothrombin Time with INR (02/12/2022 10:52 AM CDT)Only the most recent of2 resultswithin the time period is included. athologist Signature PT 12.2 11.5 - 13.9 [facility] INR 0.97 0.90 - 1.10 [facility] Specimen Anatomical Collection Method Collection Time Receive d Time (Source) Location / / Volume Laterality Blood 02/12/2022 10:52 02/12/2022 AM CDT 11:03 AM CDT Juani Lisa MD LAB BLOOD ORDERABLES Performing Organization Address City/[facility]/ZIP Code Phon e Number [facility] Unless otherwise noted, [address] all lab tests performed by: Division of Pathology and Laboratory Medicine [address] [place] [address] ALT (02/12/2022 10:52 AM CDT)Only the most recent of3 resultswithin the time period is included. athologist Signature ALT 10 <=33 U/L [facility] Specimen Anatomical Collection Method Collection Time Receive d Time (Source) Location / / Volume Laterality Blood 02/12/2022 10:52 02/12/2022 AM CDT 11:04 AM CDT Juani Lisa MD LAB BLOOD ORDERABLES Performing Organization Address City/[facility]/ZIP Code Phon e Number [facility] Unless otherwise noted, [address] all lab tests performed by: Division of Pathology and Laboratory Medicine [address] [place] [address] Aspartate Aminotransferase (02/12/2022 10:52 AM CDT)Only the most recent of3 resultswithin the time period is included. athologist Signature AST 15 <=32 U/L [facility] Specimen Anatomical Collection Method Collection Time Receive d Time (Source) Location / / Volume Laterality Blood 02/12/2022 10:52 02/12/2022 AM CDT 11:04 AM CDT Juani Lisa MD LAB BLOOD ORDERABLES Performing Organization Address City/[facility]/ZIP Code Phon e Number [facility] Unless otherwise noted, [address] all lab tests performed by: Division of Pathology and Laboratory Medicine [address] Total Protein (02/12/2022 10:52 AM CDT)Only the most recent of2 resultswithin the time period is included. athologist Signature Total Protein 6.6 6.4 - 8.3 [facility] g/dL [facility] Specimen Anatomical Collection Method Collection Time Receive d Time (Source) Location / / Volume Laterality Blood 02/12/2022 10:52 02/12/2022 AM CDT 11:04 AM CDT Juani Lisa MD LAB BLOOD ORDERABLES Performing Organization Address City/[facility] Phon e Number [facility] Unless otherwise noted, [address] all lab tests performed by: Division of Pathology and Laboratory Medicine [address] Phosphorus Level (02/12/2022 10:52 AM CDT) athologist Signature Phosphorus 3.3 2.5 - 4.5 [facility] mg/dL [facility] Specimen Anatomical Collection Method Collection Time Receive d Time (Source) Location / / Volume Laterality Blood 02/12/2022 10:52 02/12/2022 AM CDT 11:04 AM CDT Juani Lisa MD LAB BLOOD ORDERABLES Performing Organization Address City/[facility] Phon e Number [facility] Unless otherwise noted, [address] all lab tests performed by: Division of Pathology and Laboratory Medicine [address] Alkaline Phosphatase (02/12/2022 10:52 AM CDT)Only the most recent of2 results within the time period is included. athologist Signature Alk Phos 76 35 - 104 [facility] Specimen Anatomical Collection Method Collection Time Receive d Time (Source) Location / / Volume Laterality Blood 02/12/2022 10:52 02/12/2022 AM CDT 11:04 AM CDT Juani Lisa MD LAB BLOOD ORDERABLES Performing Organization Address City/[facility] Phon e Number [facility] Unless otherwise noted, [address] all lab tests performed by: Division of Pathology and Laboratory Medicine [address] [place] [address] LDH (02/12/2022 10:52 AM CDT) athologist [facility] LDH [phone] - 214 [facility] Comment: Results greater than 1651 U/L m ay not be reliable due to matrix effect with extended dilution as it exceeds the manu facturer's recommended limit. Caution should be exercised when interpreting such valu es and done in conjunction with clinical context. Specimen Anatomical Collection Method Collection Time Receive d Time (Source) Location / / Volume Laterality Blood 02/12/2022 10:52 02/12/2022 AM CDT 11:04 AM CDT Juani Lisa MD LAB BLOOD ORDERABLES Performing Organization Address City/[facility] Phon e Number [facility] Unless otherwise noted, [address] all lab tests performed by: Division of Pathology and Laboratory Medicine [address] [place] [address] (ABNORMAL) Glucose Level (02/12/2022 10:52 AM CDT)Only the most recent of2 resultswithin the time period is included. athologist Signature Glucose Level 105 (H) 70 - 99 [facility] mg/dL [facility] Comment: Effective 03/24/16, the glucose reference intervals have been updated based on [place] [employer] guidelines (Standards of Medical Care in Diabetes 2016. Diabetes Care 2016; 39: S13-S22). Fasting blood glucose: Normal: 70-99 mg/dL Impaired fasting glucose (increased risk for diabetes or pre-diabetes): 100- 125 mg/dL Diabetes mellitus: >/=126 mg/dL Random blood glucose: Normal: 70-199 mg/dL Note: Random glucose >100 mg/dL is assoc iated with increased risk for diabetes Specimen Anatomical Collection Method Collection Time Receive d Time (Source) Location / / Volume Laterality Blood 02/12/2022 10:52 02/12/2022 AM CDT 11:04 AM CDT Juani Lisa MD LAB BLOOD ORDERABLES Performing Organization Address City/[facility]/ZIP [facility] Phon e Number [facility] Unless otherwise noted, [address] all lab tests performed by: Division of Pathology and Laboratory Medicine [address] Calcium Level (02/12/2022 10:52 AM CDT)Only the most recent of2 resultswithin the time period is included. P athologist Signature Calcium Lvl 9.2 8.4 - 10.2 [facility] mg/dL [facility] Specimen Anatomical Collection Method Collection Time Receive d Time (Source) Location / / Volume Laterality Blood 02/12/2022 10:52 02/12/2022 AM CDT 11:04 AM CDT Juani Lisa MD LAB BLOOD ORDERABLES Performing Organization Address City/[facility]/ZIP [facility] Phon e Number [facility] Unless otherwise noted, [address] all lab tests performed by: Division of Pathology and Laboratory Medicine [address] Ammonia Level (02/12/2022 10:52 AM CDT) P athologist Signature Ammonia <13 11 - 51 [facility] mcmol/L [facility] Specimen Anatomical Collection Method Collection Time Receive d Time (Source) Location / / Volume Laterality Blood 02/12/2022 10:52 02/12/2022 AM CDT 11:09 AM CDT Juani Lisa MD LAB BLOOD ORDERABLES Performing Organization Address City/[facility] Phon e Number [facility] Unless otherwise noted, [address] all lab tests performed by: Division of Pathology and Laboratory Medicine [address] Albumin Level (02/12/2022 10:52 AM CDT)Only the most recent of2 resultswithin the time period is included. P athologist Signature Albumin Lvl 4.2 3.5 - 5.2 [facility] gm/dL [facility] CENTER Specimen Anatomical Collection Method Collection Time Receive d Time (Source) Location / / Volume Laterality Blood 02/12/2022 10:52 02/12/2022 AM CDT 11:04 AM CDT Juani Lisa MD LAB BLOOD ORDERABLES Performing Organization Address City/State/ZIP Code Phon e Number [facility] Unless otherwise noted, [place] [address] CENTER all lab tests performed by: Division of Pathology and Laboratory Medicine [address] [facility] CT Head without Contrast (02/12/2022 10:42 AM CDT) Anatomical Region Laterality Modality Head Computed Tomography Specimen (Source) Anatomical Collection Method Collection Time Re ceived Time Location / / Volume Laterality 02/12/2022 10:44 AM CDT Impressions 02/12/2022 11:09 AM CDT No acute intracranial abnormality. I personally reviewed these image(s) suraj ng with the resident's/fellow's interpretations, certify that if a procedure was performed I was physically present, and agree with the final report. Narrative 02/12/2022 11:09 AM CDT FULL RESULT: EXAMINATION: CT HEAD WO CONTRAST on 02/12 10:42 AM COMPARISON: PET/CT 02/15/2022, MRI brain 12/22/2021 HISTORY: Squamous cell carcinoma left laisha ng INDICATION: Not for stroke, trauma, head ache, sinusitis, or syncope, Altered Mental Status, AMS TECHNIQUE: CT scan of the brain was perf ormed without intravenous contrast as per departmental protocol. FINDINGS: INTRACRANIAL: Scattered deep white matte r hypodensities, most notable in the left frontal lobe, are consistent with chronic microangiopathic ischemic changes as demonstrated on prior MRI dated 12/22/2021 . There is no evidence for abnormal enha ncement.The petersen-white matter differentiation is maintained. The exam is limited for the evaluation o f metastatic disease due to lack of intravenous contrast. No large mass lesion or focal edema is identified. There is no evidence for intra-axial or extra-axial hemorrhage. No midline shift or mass effect seen. There is no evidence for hydrocephalus. There is no large acute territorial infa rction. CALVARIA: The calvaria and extracranial soft tissues are unremarkable. ORBITS: The orbital structures are unrem arkable. SINUSES: The paranasal sinuses and masto id air cells are clear. Procedure Note Tere Pillai MD - 02/12/2022 FULL RESULT: EXAMINATION: CT HEAD WO CONTRAST on 02/12 10:42 AM COMPARISON: PET/CT 02/15/2022, MRI brain 12/22/2021 HISTORY: Squamous cell carcinoma left laisha ng INDICATION: Not for stroke, trauma, head ache, sinusitis, or syncope, Altered Mental Status, AMS TECHNIQUE: CT scan of the brain was perf ormed without intravenous contrast as per departmental protocol. FINDINGS: INTRACRANIAL: Scattered deep white matte r hypodensities, most notable in the left frontal lobe, are consistent with chronic microangiopathic ischemic changes as demonstrated on prior MRI dated 12/22/2021. There is no evidence for abnormal enhancement.The gr ay-white matter differentiation is maintained. The exam is limited for the evaluation o f metastatic disease due to lack of intravenous contrast. No large mass lesion or focal edema is identified. There is no evidence for intra-axial or extra-axial hemorrhage. No midline shift or mass effect seen. There is no evidence for hydrocephalus. There is no large acute territorial infa rction. CALVARIA: The calvaria and extracranial soft tissues are unremarkable. ORBITS: The orbital structures are unrem arkable. SINUSES: The paranasal sinuses and masto id air cells are clear. IMPRESSION: No acute intracranial abnormality. I personally reviewed these image(s) surajperla tuttle with the resident's/fellow's interpretations, certify that if a procedure was performed I was physically present, and agree with the final report. Juani Lisa MD IMG CT ORDERABLES PETCT Initial Treatment Strategy (01/29/2022 11:45 AM CDT) Anatomical Region Laterality Modality Whole Body Positron Emission To mography (PET) Specimen (Source) Anatomical Collection Method Collection Time Re ceived Time Location / / Volume Laterality 01/29/2022 12:11 PM CDT Impressions 01/29/2022 12:29 PM CDT The primary malignancy in the left upper lobe is stable in size and metabolic activity. No evidence of extrathoracic metastases. Stable pulmonary nodules and opacities o f uncertain etiology. Narrative 01/29/2022 12:29 PM CDT FULL RESULT: Examination: FDG PET/CT, 01/29/2022 11:45 AM Clinical History: Squamous cell carcinom a of lung Indication: Evaluation of disease status for treatment strategy Comparison: 12/24/2021 Technique: F-18 fluorodeoxyglucose (FDG) 8.3 mCi was administered intravenously via right antecubital vein. To allow for distribution and uptake of radiotracer, the patient was asked to rest quietly f or approximately 60-90 minutes. PET/CT imaging was performed from the skull to the thighs. CT scanning was done for attenuation correction, image registration, and diagnosis with scan parameters optim ized to minimize radiation exposure to t he patient. SUV measurements are reported as maximum SUV based on body weight unless otherwise specified. Findings: Head and Neck: No enlarged or FDG avid l ymph nodes. Chest: There is stable in size 4.8 cm le ft perihilar/left upper lung mass (SUV 8.2, previously 7.6). These mass is extending into the mediastinum and is occluding the left upper lobe bronchus. Opacities adjacent to the mass are suspicious for tumor involvement. There are some few nodules and opacities annotated on series 4 that are stable in size. No new nodules. No consolidation. There are lymph nodes in the mediastinum measuring less than 10 mm in short axis with low grade FDG uptake. For example left paratracheal lymph nodes measures 0.8 cm (SUV 2.3 previously 2.2). Abdomen and Pelvis: No FDG avid lesions in the liver or spleen. The kidneys are within normal limits. Cholelithiasis without evidence of cholecystitis. No evidence of hydronephrosis. Partially calcified and FDG avid lymph node anterior to the inferior vena cava, 0.8 cm (SUV 3.6) is most likely reactive. Musculoskeletal: Increased FDG uptake wi thin the musculature adjacent to the right greater trochanter may represent a chronic inflammatory changes. Procedure Note Judy Rosen MD - 01/30/20 22 FULL RESULT: Examination: FDG PET/CT, 01/29/2022 11:45 AM Clinical History: Squamous cell carcinom a of lung Indication: Evaluation of disease status for treatment strategy Comparison: 12/24/2021 Technique: F-18 fluorodeoxyglucose (FDG) 8.3 mCi was administered intravenously via right antecubital vein. To allow for distribution and uptake of radiotracer, the patient was asked to rest quietly for approximately 60-90 minutes. PET/CT jannette ging was performed from the skull to the thighs. CT scanning was done for attenuation correction, image registration, and diagnosis with scan parameters optimized to minimize radiation exposure to the patient. SUV m easurements are reported as maximum SUV based on body weight unless otherwise specified. Findings: Head and Neck: No enlarged or FDG avid l ymph nodes. Chest: There is stable in size 4.8 cm le ft perihilar/left upper lung mass (SUV 8.2, previously 7.6). These mass is extending into the mediastinum and is occluding the left upper lobe bronchus. Opacities adjacent to the mass are suspicious for tumor involvemen t. There are some few nodules and opacities annotated on series 4 that are stable in size. No new nodules. No consolidation. There are lymph nodes in the mediastinum measuring less than 10 mm in short axis with low grade FDG uptake. For example left paratracheal lymph nodes measures 0.8 cm (SUV 2.3 previously 2.2). Abdomen and Pelvis: No FDG avid lesions in the liver or spleen. The kidneys are within normal limits. Cholelithiasis without evidence of cholecystitis. No evidence of hydronephrosis. Partially calcified and FDG avid lymph node anterior to the inferior vena cava, 0.8 cm (SUV 3.6) is most likely reactive. Musculoskeletal: Increased FDG uptake wi thin the musculature adjacent to the right greater trochanter may represent a chronic inflammatory changes. IMPRESSION: The primary malignancy in the left upper lobe is stable in size and metabolic activity. No evidence of extrathoracic metastases. Stable pulmonary nodules and opacities o f uncertain etiology. Clarita BRUNSON IMG PETCT ORDERABLES COVID-19 (SARS-CoV-2) PCR-Asymptomatic (01/28/2022 11:00 AM CDT) [facility] Method Time Signature COVID19 (SARS Not Detected Not Detected [place] CoV-2) [facility] [place] Comment: This test is a qualitative reverse-trans criptase polymerase chain reaction (RT- PCR) developed for the [employer] sevenload0 system and intended for qualitative detection of SARS CoV-2 RNA in nasopharyngeal a nd oropharyngeal swab specimens collecte d from any individuals, including those suspected o f COVID-19 by their healthcare provider, and those without symptoms or other reasons to suspect COVID-19. A fact sheet for patients provided by the associate medical director ( [employer]) can be rev iewed at: https://www.fda.gov/media/760667/downloa d. A fact sheet for Health Care providers is provided by the associate medical director ([employer]) and can be reviewed at: https://www.fda.gov/media/560200/download Results must be interpreted within the c ontext of all relevant clinical and laboratory findings and should not form the sole basis for a diagnosis or treatment decision. Positive results do not rule out bacterial infection or co- infection with other viruses. Negative results do not rule ou t SARS-CoV-2 and must be combined with clinical observations, patient history, and/or epidemiological information. "Presumptive Positive" results are due t o partial amplification of SARS-CoV-2 targets and indicates low amounts of virus present in the specimen at or near the limit of detection. Regardless, individuals with "Presumptive Positive" results should be managed per institutional guidelines as individuals positive for SARS-CoV-2 virus, including use of appropriate infection control protocols. Internal controls are included to assess for possible amplification inhibitors. If inhibition is detected, testing is repeated and if inhibition is confirmed the specimen is resulted as "Invalid". When an "Invalid" result occurs, it is recomm ended to wait 3 days before submitting a new spec imen for testing if clinically indicated. This assay has been approved by the FDA for use only under Emergency Use Authorization (EUA) in laboratories that have been CLIA-certified to perform moderate-complexity and high-complexity tests. The performance characteristics of this assay were verified by the Microbiology Laboratory at [facility], CLIA Accreditation #: [id number] and CAP Accreditation #: [id number]. COVID19 SARS Source POLITICAL CONSULTANT Swab AK MD [facility] COVID19 SARS Indication Pre-Radiation Therapy [facility] Specimen (Source) Anatomical Collection Method Collection Time Re ceived Time Location / / Volume Laterality Nasopharyngeal Swab 01/28/2022 11:00 06/0 09/2021 AM CDT 12:23 PM CDT Melvin Bravo MD MICROBIOLOGY - GENERAL ORDER AMY Performing Organization Address City/State/ZIP Code Phon e Number [facility] Unless otherwise noted, [place], [place] [id number] [place] [address] all lab tests performed by: Division of Pathology and Laboratory Medicine [facility] Myocardial Perfusion Spect (Stress And Rest) (01/11/2022 3:40 PM CDT) Anatomical Region Laterality Modality Chest Nuclear Medicine Specimen (Source) Anatomical Collection Method Collection Time Re ceived Time Location / / Volume Laterality 01/11/2022 3:55 PM CDT Impressions 01/11/2022 4:20 PM CDT 1. Normal myocardial perfusion with no evidence of stress-induced ischemia. 2. Normal left ventricular systolic func tion with a left ventricular ejection fraction of 67%. 3. Triple-vessel atherosclerosis with Co ronary artery Calcium score of 5069 Narrative 01/11/2022 4:20 PM CDT FULL RESULT: Examination: Pharmacologic Rest/Stress M yocardial Perfusion Scan, 01/11/2022 3:40 PM Clinical History: Squamous cell carcinom a of the lung Indication: Evaluation for ischemic hear t disease Comparison: None. Technique: The patient was stressed phar macologically using regadenoson per protocol. Heart rate changed from 93 bpm to 113 BPM and blood pressure changed from 150/78 mmHg to 126/72 mmHg with stress. Fi nal clinical and electrocardiographic re sults of the stress test are reported separately. Resting and gated post-stress SPECT-CT i mages of the heart were obtained following the intravenous administration of 8.7 mCi of technetium-99m sestamibi at rest and 24.1 mCi of technetium-99m sestamibi during stress. Findings: The stress images demonstrate normal perfusion throughout the left ventricle. There are no reversible perfusion abnormalities. Breast attenuation artifact noted. The gated images demonstrate normal wall motion and normal systolic wall thickening. There is no evidence of left ventricular dilatation. Left ventricular ejection fraction: 67% End-diastolic volume: 40 ml. End-systolic volume: 13ml CT of the heart was performed without co ntrast or ECG gating. Multiplanar reformatting, 3D post processing, vessel tracking, and coronary artery calcium score evaluation was performed on [email or web address] workstation. Triple vessel atherosclerosis noted. Race: White Gender: Female Age: 61 Estimated probability of a non-zero calc ium score: 38% Observed calcium score: 5069 Percenti le: 99% Reference: Circulation. 2005Aug 31; 113( 1):30-7. Procedure Note Sloan Munoz MD - 01/11/2022Formatting of t his note might be different from the original. FULL RESULT: Examination: Pharmacologic Rest/Stress M yocardial Perfusion Scan, 01/11/2022 3:40 PM Clinical History: Squamous cell carcinom a of the lung Indication: Evaluation for ischemic hear t disease Comparison: None. Technique: The patient was stressed phar macologically using regadenoson per protocol. Heart rate changed from 93 bpm to 113 BPM and blood pressure changed from 150/78 mmHg to 126/72 mmHg with stress. Final clinical and electrocardiographic results of the stre ss test are reported separately. Resting and gated post-stress SPECT-CT i mages of the heart were obtained following the intravenous administration of 8.7 mCi of technetium-99m sestamibi at rest and 24.1 mCi of technetium-99m sestamibi during stress. Findings: The stress images demonstrate normal perfusion throughout the left ventricle. There are no reversible perfusion abnormalities. Breast attenuation artifact noted. The gated images demonstrate normal wall motion and normal systolic wall thickening. There is no evidence of left ventricular dilatation. Left ventricular ejection fraction: 67% End-diastolic volume: 40 ml. End-systolic volume: 13ml CT of the heart was performed without co ntrast or ECG gating. Multiplanar reformatting, 3D post processing, vessel tracking, and coronary artery calcium score evaluation was performed on [email or web address] workstation. Triple vessel atherosclerosis noted. Race: White Gender: Female Age: 61 Estimated probability of a non-zero calc ium score: 38% Observed calcium score: 5069 Percentil e: 99% Reference: Circulation. 2005Aug 31; 113( 1):30-7. IMPRESSION: 1. Normal myocardial perfusion with no e vidence of stress-induced ischemia. 2. Normal left ventricular systolic func tion with a left ventricular ejection fraction of 67%. 3. Triple-vessel atherosclerosis with Co ronary artery Calcium score of 5069 Melvin Bravo MD IMG NM ORDERABLES EKG, Stress Test (01/11/2022) Specimen (Source) Anatomical Location Collection Method / Collectio n Time Received Time / Laterality Volume Narrative This result has an attachment that is no t available. Emily Mccrary Sloan HUSAIN ECG ORDERABLES Performing Organization Address City/State/ZIP Code Phon e Number [facility] Echocardiogram Strain/Speckle Tracking (01/07/2022 3:48 PM CDT) Specimen (Source) Anatomical Collection Method Collection Time Re ceived Time Location / / Volume Laterality 01/07/2022 3:25 PM CDT Narrative [facility] - 01/07/2022 6:45 PM CDT Echocardiographic Report Interpretation Summary A complete two-dimensional transthoracic echocardiogram was performed (2D, M- mode, Spectral and color Doppler). There is no comparison study available. Normal left ventricular size and systoli c function. LV ejection fraction calculated using th e bi-plane method of disks is 60 %. The right ventricle is normal in size an d function. Estimated RVSP is 25-30mmHg. There is no pericardial effusion. Left Ventricle: Normal left ventricular size and systoli c function. LV ejection fraction calculated using the bi-plane method of disks is 60 %. No regional wall motion abnormalities noted. Paradoxical septal motion is noted. I WMSI = 1.00 % Normal = 1 00 Normal global longitudinal peak systolic value X - Cannot 1 - Normal 2 - 3 - Akinetic 4 - Dyskinetic Interpret Hyp okinetic 5 - Aneurysmal 3D imaginD volumes were not performed in this st udy. Cardiac Mechanics/Speckle Tracking Imagi ng: Normal global longitudinal peak systolic value. Strain Imaging was performed; GLPS avg = -19.4%. Diastology: Impaired LV relaxation pattern of diasto lic dysfunction, Doppler suggests normal LA pressures. Right Ventricle: The right ventricle is normal in size an d function. Normal RV systolic function using TAPSE criteria. Atria: Atria are normal in size. Mitral Valve: The mitral valve is grossly normal. Ther e is trace mitral regurgitation. Tricuspid Valve: The tricuspid valve is not well visualiz ed, but is grossly normal. There is trace tricuspid regurgitation. Estimated RVSP is 25-30mmHg. Aortic Valve: The aortic valve is trileaflet. The aort ic valve opens well. Mild aortic valve sclerosis. No hemodynamically significant valvular aortic stenosis. No aortic regurgitation is present. Pulmonic Valve: The pulmonic valve is not well visualize d. Great Vessels: The aortic root is normal size. The infe rior vena cava demonstrates normal size and normal respiratory variation. Pericardium/Pleural: There is no pericardial effusion. Preliminary Reviewer Preliminary Interpretation: Rosy márquez MD. MMode/2D Measurements IVSd: 0.79 cm LVIDd: 4.7 cm LVIDs: 3.1 cm LVPWd: 0.70 cm FS: 34.2 % Ao root diam: 2.6 cm Ao root area: 5.2 cm2 LA dimension: 3.8 cm LVOT diam: 2.2 cm EDV(MOD-A4C): 74.3 ml ESV(MOD-A4C): 32.1 ml LVOT area: 3.9 cm2 EF(MOD-A4C): 56.7 % EDV(MOD-A2C): 85.9 ml ESV(MOD-A2C): 34.0 ml EDV(MOD-bp): 82.3 ml EF(MOD-A2C): 60.4 % ESV(MOD-bp): 33.1 ml EF(MOD-bp): 59.8 % LAV(MOD-A2C): 26.7 ml EDV (MOD-bp) Index: 55.8 ml/m2 LAV(MOD-A4C): 26.7 ml LAV(MOD-bp): 28.8 ml LAV(MOD-bp) Indexed: 19.5 ml/m2 ESV (MOD-bp) Index: 22.4 ml/m2 RWT: 0.30 cm TAPSE (>1.6): 1.7 cm Doppler Measurements MV E max lucy: 81.5 cm/sec MV V2 max: 118.6 cm/sec MV A max lucy: 128.6 cm/sec MV max P.6 mmHg MV E/A: 0.63 MV V2 mean: 67.9 cm/sec MV mean P.1 mmHg MV V2 VTI: 25.2 cm MVA(VTI): 2.8 cm2 MV dec time: 0.18 sec Ao V2 max: 122.9 cm/sec Ao max P.0 mmHg Ao V2 mean: 88.6 cm/sec Ao mean P.5 mmHg Ao V2 VTI: 23.8 cm SUZAN(I,D): 3.0 cm2 SUZAN(V,D): 3.1 cm2 LV V1 max P.8 mmHg SV(LVOT): 71.6 ml LV V1 mean P.8 mmHg LV V1 max: 97.1 cm/sec LV V1 mean: 61.9 cm/sec LV V1 VTI: 18.5 cm Med Peak E' Lucy: 5.4 cm/sec Lat Peak E' Lucy: 5.3 cm/sec TR max lucy: 257.2 cm/sec RAP systole: 3.0 mmHg TR max P.5 mmHg RVSP(TR): 29.5 mmHg RV S Vel_phl: 9.3 cm/sec SUZAN Index (I,D): 2.0 SUZAN Index (V,D): 2.1 Dimensionless Index: 0.79 E/e' (avg): 15.2 E/e' (lat): 15.3 E/e' (sept): 15.0 60 Procedure Note Mckinley Brady MD - 01/07/2022 Echocardiographic Report Interpretation Summary A complete two-dimensional transthoracic echocardiogram was performed (2D, M- mode, Spectral and color Doppler). There is no comparison study available. Normal left ventricular size and systoli c function. LV ejection fraction calculated using th e bi-plane method of disks is 60 %. The right ventricle is normal in size an d function. Estimated RVSP is 25-30mmHg. There is no pericardial effusion. Left Ventricle: Normal left ventricular size and systoli c function. LV ejection fraction calculated using the bi-plane method of disks is 60 %. No regional wall motion abnormalities noted. Paradoxical septal motion is noted. I WMSI = 1.00 % Normal = 100 Normal global longitudinal peak systolic value X - Cannot 1 - Normal 2 - 3 - Akinetic 4 - Dyskinetic Interpret Hypokinetic 5 - Aneurysmal 3D imaginD volumes were not performed in this [facility]. Cardiac Mechanics/Speckle Tracking Imagi ng: Normal global longitudinal peak systolic value. Strain Imaging was performed; GLPS avg = -19.4%. Diastology: Impaired LV relaxation pattern of diasto lic dysfunction, Doppler suggests normal LA pressures. Right Ventricle: The right ventricle is normal in size an d function. Normal RV systolic function using TAPSE criteria. Atria: Atria are normal in size. Mitral Valve: The mitral valve is grossly normal. Ther e is trace mitral regurgitation. Tricuspid Valve: The tricuspid valve is not well visualiz ed, but is grossly normal. There is trace tricuspid regurgitation. Estimated RVSP is 25-30mmHg. Aortic Valve: The aortic valve is trileaflet. The aort ic valve opens well. Mild aortic valve sclerosis. No hemodynamically significant valvular aortic stenosis. No aortic regurgitation is present. Pulmonic Valve: The pulmonic valve is not well visualize d. Great Vessels: The aortic root is normal size. The infe rior vena cava demonstrates normal size and normal respiratory variation. Pericardium/Pleural: There is no pericardial effusion. Preliminary Reviewer Preliminary Interpretation: Rosy márquez MD. MMode/2D Measurements IVSd: 0.79 cm LVIDd: 4.7 cm LVIDs: 3.1 cm LVPWd: 0.70 cm FS: 34.2 % Ao root hector m: 2.6 cm Ao root are a: 5.2 cm2 LA dimensio n: 3.8 cm LVOT diam: 2.2 cm EDV(MOD-A4C ): 74.3 ml ESV(MOD-A4C ): 32.1 ml LVOT area: 3.9 cm2 EF(MOD-A4C) : 56.7 % EDV(MOD-A2C): 85.9 ml ESV(MOD-A2C): 34.0 ml EDV(MOD-bp) : 82.3 ml EF(MOD-A2C): 60.4 % ESV(MOD-bp) : 33.1 ml EF(MOD-bp): 59.8 % LAV(MOD-A2C): 26.7 ml EDV (MOD-bp ) Index: 55.8 ml/m2 LAV(MOD-A4C): 26.7 ml LAV(MOD-bp): 28.8 ml LAV(MOD-bp) Indexed: 19.5 ml/m2 ESV (MOD-bp) Index: 22.4 ml/m2 RWT: 0.30 c m TAPSE (>1.6): 1.7 cm Doppler Measurements MV E max lucy: 81.5 cm/sec MV V2 max: 118. 6 cm/sec MV A max lucy: 128.6 cm/sec MV max P.6 mmHg MV E/A: 0.63 MV V2 mean: 67. 9 cm/sec MV mean P.1 mmHg MV V2 VTI: 25.2 cm MVA(VTI): 2.8 c m2 MV dec time: 0.18 sec Ao V2 max: 122. 9 cm/sec Ao max P.0 mmHg Ao V2 mean: 88. 6 cm/sec Ao mean P.5 mmHg Ao V2 VTI: 23.8 cm SUZAN(I,D): 3.0 c m2 SUZAN(V,D): 3.1 c m2 LV V1 max P.8 mmHg SV(LVOT): 71.6 ml LV V1 mean P.8 mmHg LV V1 max: 97.1 cm/sec LV V1 mean: 61.9 cm/sec LV V1 VTI: 18.5 cm Med Peak E' Lucy: 5.4 cm/sec Lat Peak E' Lucy : 5.3 cm/sec TR max lucy: 257.2 cm/sec RAP systole: 3. 0 mmHg TR max P.5 mmHg RVSP(TR): 29.5 mmHg RV S Vel_phl: 9.3 cm/sec SUZAN Index (I,D) : 2.0 SUZAN Index (V,D): 2.1 Dimensionless I ndex: 0.79 E/e' (avg): 15.2 E/e' (lat): 15. 3 E/e' (sept): 15.0 60 Melvin Bravo MD CV ECHO ORDERABLES Performing Organization Address City/State/ZIP Code Phon e Number [facility] (ABNORMAL) NT-Pro BNP (In-House) (01/06/2022 10:58 AM CDT) P athologist Signature NT ProBNP 272 (H) <=125 pg/mL [facility] Specimen Anatomical Collection Method Collection Time Receive d Time (Source) Location / / Volume Laterality Blood 01/06/2022 10:58 01/06/2022 AM CDT 11:53 AM CDT Melvin Bravo MD LAB BLOOD ORDERABLES Performing Organization Address City/State/ZIP Code Phon e Number [facility] Unless otherwise noted, [place], [place] [phone] [place] [address] all lab tests performed by: Division of Pathology and Laboratory Medicine [address] [place], [place] [address]comshwetha Arceo CRP (01/06/2022 10:58 AM CDT) athologist [facility] CRP 8.81 mg/L [facility] Comment: Reference ranges for HS CRP assay are as follows: Reference ranges when used to assess car diac risk: <1.00 mg/L Low cardiovascular risk 1.00-3.00 mg/L Average cardiovascular risk >3.00 mg/L High cardiovascular risk. Reference ranges when used to assess inf lammatory responses: Less than or equal to 10.00 mg/L. Specimen Anatomical Collection Method Collection Time Receive d Time (Source) Location / / Volume Laterality Blood 01/06/2022 10:58 01/06/2022 AM CDT 11:53 AM CDT Melvin Bravo MD LAB BLOOD ORDERABLES Performing Organization Address [facility] Phon e Number [facility] Unless otherwise noted, [address] all lab tests performed by: Division of Pathology and Laboratory Medicine [address] [place] [address] Marielos (ABNORMAL) Hemoglobin A1c (01/06/2022 10:58 AM CDT) athologist [facility] A1C 8.2 (H) 4.3 - 5.6 % [facility] Comment: HbA1c values >=6.5% are diagnostic of di abetes mellitus. Diagnosis should be confirmed by repeat testing. Therapeutic Action suggested: >8.0% HbA1 c; Goal of therapy: <7.0% HbA1c Specimen Anatomical Collection Method Collection Time Receive d Time (Source) Location / / Volume Laterality Blood 01/06/2022 10:58 01/06/2022 AM CDT 11:22 AM CDT Melvin Bravo MD LAB BLOOD ORDERABLES Performing Organization Address [facility] Phon e Number [facility] Unless otherwise noted, [address] all lab tests performed by: Division of Pathology and Laboratory Medicine [address] [place], [place] [address] Bilirubin Total (01/06/2022 10:58 AM CDT) athologist [facility] Bili Total 0.4 <=1.2 mg/dL [facility] Comment: Indocyanine Green (ICG) may cause falsel y elevated bilirubin results. Total and direct bilirubin must not be measured from samples containing indocyanine green. False elevation of total bilirubin can b e seen in patients with IgG concentrations above 28 g/L. Specimen Anatomical Collection Method Collection Time Receive d Time (Source) Location / / Volume Laterality Blood 01/06/2022 10:58 01/06/2022 AM CDT 11:21 AM CDT Narrative [facility] - 01/06 11:57 AM CDT Within 72 hours prior to chemotherapy. Clarita BRUNSON LAB BLOOD ORDERABLES Performing Organization Address City/State/ZIP Code Phon e Number [facility] Unless otherwise noted, [place] [address] CENTER all lab tests performed by: Division of Pathology and Laboratory Medicine [address] (ABNORMAL) Lipid Panel (01/06/2022 10:58 AM CDT) athologist Signature Chol 333 (H) <=199 mg/dL [facility] Comment: ATP III Classification of Total Choleste rol Primary Target of Therapy (in mg/dL): <200 Desirable 200-239 Borderline high >=240 High Trig 207 (H) <=149 mg/dL [facility] Comment: ATP III Classification of Serum Triglyce rides Primary Target of Therapy (in mg/dL): <150 Normal 150-199 Borderline high 200-499 High >=500 Very high Non-fasting triglycerides >200 mg/dL may be followed up with a fasting Lipid Panel. Calculated LDL-C may be falsely decreased when non-fasting triglycerides >200 mg/dL. HDL 73 >=40 mg/dL [facility] [place] LDL 219 (H) <=100 mg/dL [facility] Comment: ATP III Classification of LDL Cholestero l Primary Target of Therapy (in mg/dL): <100 Optimal 100-129 Near optimal/above optimal 130-159 Borderline high 160-189 High >=190 Very high VLDL 41 mg/dL [facility] Specimen Anatomical Collection Method Collection Time Receive d Time (Source) Location / / Volume Laterality Blood 01/06/2022 10:58 01/06/2022 AM CDT 11:22 AM CDT Melvin Bravo MD LAB BLOOD ORDERABLES Performing Organization Address City/State/ZIP Code Phon e Number [facility] Unless otherwise noted, [place] [address] CENTER all lab tests performed by: Division of Pathology and Laboratory Medicine [address] PETCT Subsequent Treatment Strategy (12/23/2021 4:54 PM CDT) Anatomical Region Laterality Modality Whole Body Positron Emission To mography (PET) Specimen (Source) Anatomical Collection Method Collection Time Re ceived Time Location / / Volume Laterality 12/23/2021 5:50 PM CDT Impressions 12/24/2021 7:33 AM CDT There is a left upper lobe-perihilar mass occluding the left upper lobe bronchus and with CT findings suspicious for limited regional invasion into the mediastinum is biopsy-proven to be a squamous cell carcinoma. There are no selene metastase s. There are small nodular opacities in both lungs of uncertain etiology. Previously visualized diffuse abnormality of the lungs has decreased in the interval mos t consistent with an inflammatory or inf ectious etiology. There are no distant- extrathoracic systemic metastases. Narrative 12/24/2021 7:33 AM CDT FULL RESULT: Examination: FDG PET/CT, 12/23/2021 4:54 PM Clinical History: Carcinoma, NOS of uppe r lobe, lung <Left> [C34.12 (ICD-10-CM)]. Indication: To determine initial treatme nt strategy. Staging. Comparison: Chest CT 11/15/2021. Technique: Following intravenous admi nistration of 8.7 mCi F-18 fluorodeoxyglucose (FDG), a CT attenuation corrected PET scan was obtained from the vertex to the thighs. Findings: 1. There is a 4.5 cm FDG avid (SUV max 7 .6) irregular centrally located left perihilar-left upper lobe mass. There also irregular FDG avid focal and linear soft tissue opacities contiguous with the mass that extends into the adjacent left upp er lobe that are suspicious for malignancy. The mass occludes the left upper lobe bronchus and there are CT findings of limited extension-invasion into the adjacent mediastinum. 2. There are no enlarged or FDG avid int rathoracic or extrathoracic lymph nodes suspicious for selene metastases. 3. There are multifocal small nodular op acities scattered in both lungs, the largest with a maximal dimension 9 mm (image 169) that are unchanged on short- term follow-up. However, diffuse centrilobular and linear opacities in both lungs detec milana on CT of 11/23/2021, although not optimally evaluated on nonbreath held PET/CT, have decreased or resolved in the interval. 4. FDG uptake in the liver and spleen is physiologic. There is cholelithiasis. 5. The adrenals are normal. 6. There are no FDG avid osseous metasta ses. There is focal increased FDG uptake in the sternum associated with a sternotomy wire consistent with an inflammatory etiology. Increased FDG uptake within th e musculature adjacent to the right grea ter trochanter is most consistent with a physiologic uptake. 7. The aorta is atherosclerotic and ther e is coronary artery calcification. There are findings consistent with sequelae of a coronary artery bypass procedure. Procedure Note Joe Varela MD - 12/24/2021Formatti ng of this note might be different from the original. FULL RESULT: Examination: FDG PET/CT, 12/23/2021 4:54 PM Clinical History: Carcinoma, NOS of uppe r lobe, lung <Left> [C34.12 (ICD-10-CM)]. Indication: To determine initial treatme nt strategy. Staging. Comparison: Chest CT 11/15/2021. Technique: Following intravenous admin istration of 8.7 mCi F-18 fluorodeoxyglucose (FDG), a CT attenuation corrected PET scan was obtained from the vertex to the thighs. Findings: 1. There is a 4.5 cm FDG avid (SUV max 7 .6) irregular centrally located left perihilar-left upper lobe mass. There also irregular FDG avid focal and linear soft tissue opacities contiguous with the mass that extends into the adjacent left upper lobe that a re suspicious for malignancy. The mass occludes the left upper lobe bronchus and there are CT findings of limited extension-invasion into the adjacent mediastinum. 2. There are no enlarged or FDG avid int rathoracic or extrathoracic lymph nodes suspicious for selene metastases. 3. There are multifocal small nodular op acities scattered in both lungs, the largest with a maximal dimension 9 mm (image 169) that are unchanged on short- term follow-up. However, diffuse centrilobular and linear opacities in both lungs detected on CT o f 11/23/2021, although not optimally evaluated on nonbreath held PET/CT, have decreased or resolved in the interval. 4. FDG uptake in the liver and spleen is physiologic. There is cholelithiasis. 5. The adrenals are normal. 6. There are no FDG avid osseous metasta ses. There is focal increased FDG uptake in the sternum associated with a sternotomy wire consistent with an inflammatory etiology. Increased FDG uptake within the musculature adjacent to the right greater trochanter is most consistent with a physiologic uptake. 7. The aorta is atherosclerotic and ther e is coronary artery calcification. There are findings consistent with sequelae of a coronary artery bypass procedure. IMPRESSION: There is a left upper lobe-perihilar mas s occluding the left upper lobe bronchus and with CT findings suspicious for limited regional invasion into the mediastinum is biopsy-proven to be a squamous cell carcinoma. There are no selene metastases. There are small nodular opacities in both lungs of uncertain etiology. Previously visualized diffuse abnormality of the lungs has decreased in the interval most consistent with an inflammatory or infectious etiology. The re are no distant-extrathoracic systemic metastases. Chuy Srinivasan MD IMG PETCT ORDERABLES NGS Blood - NGS Blood Control is required for all Molecular orders of two or more genes to receive testing on the current 146 gene STGA 2018 DNA Panel. If MD DIALLO Blood Control is not ordered, testing will be routed the 50-gene, CM50, panel. (12/23/2021 1:13 PM CDT) P athologist Signature Molecular Yes [facility] CANCER [place] (Received) Specimen Anatomical Collection Method Collection Time Receive d Time (Source) Location / / Volume Laterality Blood 12/23/2021 1:13 12/23/2021 PM CDT 2:54 PM CDT Narrative [facility] - 2 2:54 PM CDT Please call and have her go to the lab Clarita GOLD HP MOLECULAR DIAG IF ORDERABLES Performing Organization Address City/State/ZIP Code Phon e Number [facility] CANCER Unless otherwise noted, [place] [address] [place] all lab tests performed by: Division of Pathology and Laboratory Medicine [id number] Radha Arceo MD EML4/ALK Fusion Analysis with Interpretation and Report (12/23/2021 12:30 PM CDT) [facility] gist Method Time Signature Archived Previously 12/29/2021 [facility] Material diagnosed 10:18 AM CDT tissues from [id number] were selected for molecular analysis. Results will be reported separately. Specimen Anatomical Collection Method Collection Time Receive d Time (Source) Location / / Volume Laterality Tissue 12/23/2021 12:30 12/23/2021 PM CDT 12:30 PM CDT Clarita BRUNSON [facility] IP AP BIOMARKERS Performing Organization Address City/State/ZIP Code Phon [place] [address] 1515 Radha Arceo MD ROS1 Fusion Analysis with Interpretation and Report (12/23/2021 12:30 PM CDT) [facility] gist Method Time Signature Archived Previously 12/29/2021 [facility] Material diagnosed 10:18 AM CDT tissues from [id number] were selected for molecular analysis. Results will be reported separately. Specimen Anatomical Collection Method Collection Time Receive d Time (Source) Location / / Volume Laterality Tissue 12/23/2021 12:30 12/23/2021 PM CDT 12:30 PM CDT Clarita BRUNSON MDA IP AP BIOMARKERS Performing Organization Address City/[facility]/ZIP Code Phon [place] [address] 1515 Radha Arceo MD RET Fusion Analysis with Interpretation and Report (12/23/2021 12:30 PM CDT) [facility] gist Method Time Signature Archived Previously 12/29/2021 [facility] Material diagnosed 10:18 AM CDT tissues from [id number] were selected for molecular analysis. Results will be reported separately. Specimen Anatomical Collection Method Collection Time Receive d Time (Source) Location / / Volume Laterality Tissue 12/23/2021 12:30 12/23/2021 PM CDT 12:30 PM CDT Clarita BRUNSON MDA IP AP BIOMARKERS Performing Organization Address City/[facility]/ZIP Code Phon [place] [address] 1515 Radha Arceo MD NTRK3 Fusion Analysis with Interpretation and Report (12/23/2021 12:30 PM CDT) [facility] gist Method Time Signature Archived Previously 12/29/2021 [facility] Material diagnosed 10:17 AM CDT tissues from [id number] were selected for molecular analysis. Results will be reported separately. Specimen Anatomical Collection Method Collection Time Receive d Time (Source) Location / / Volume Laterality Tissue 12/23/2021 12:30 12/23/2021 PM CDT 12:30 PM CDT Clarita BRUNSON MDA IP AP BIOMARKERS Performing Organization Address City/State/ZIP Code Phon [place] [address] 151Cesar Arceo MD NTRK2 Fusion Analysis with Interpretation and Report (12/23/2021 12:30 PM CDT) [facility] gist Method Time Signature Archived Previously 12/29/2021 [facility] Material diagnosed 10:17 AM CDT tissues from [place] [address] were selected for molecular analysis. Results will be reported separately. Specimen Anatomical Collection Method Collection Time Receive d Time (Source) Location / / Volume Laterality Tissue 12/23/2021 12:30 12/23/2021 PM CDT 12:30 PM CDT Clarita BRUNSON MDA IP AP BIOMARKERS Performing Organization Address City/[facility]/ZIP Code Phon [place] [address] 151Cesar Arceo MD NTRK1 Fusion Analysis with Interpretation and Report (12/23/2021 12:30 PM CDT) [facility] Method Time Signature Archived Previously 12/29/2021 [facility] Material diagnosed 10:18 AM CDT tissues from [id number] were selected for molecular analysis. Results will be reported separately. Specimen Anatomical Collection Method Collection Time Receive d Time (Source) Location / / Volume Laterality Tissue 12/23/2021 12:30 12/23/2021 PM CDT 12:30 PM CDT Clarita BRUNSON MDA IP AP BIOMARKERS Performing Organization Address City/State/ZIP Code Phon [place] [address] 151Cesar Arceo MD KRAS Interpretation and Report (12/23/2021 12:30 PM CDT) [facility] gist Method Time Signature Archived Previously 12/29/2021 [facility] Material diagnosed 10:18 AM CDT tissues from [place] [address] were selected for molecular analysis. Results will be reported separately. Specimen Anatomical Collection Method Collection Time Receive d Time (Source) Location / / Volume Laterality Tissue 12/23/2021 12:30 12/23/2021 PM CDT 12:30 PM CDT Clarita BRUNSON MDA IP AP BIOMARKERS Performing Organization Address City/State/ZIP Code Phon [place] [address] 1515 Radha Arceo MD EGFR (Exon 18, 19, 20, 21) Mutation Analysis with Interpretation and Report (12/23/2021 12:30 PM CDT) [facility] gist Method Time Signature Archived Previously 12/29/2021 [facility] Material diagnosed 10:18 AM CDT tissues from [place] [address] were selected for molecular analysis. Results will be reported separately. Specimen Anatomical Collection Method Collection Time Receive d Time (Source) Location / / Volume Laterality Tissue 12/23/2021 12:30 12/23/2021 PM CDT 12:30 PM CDT Clarita BRUNSON MDA IP AP BIOMARKERS Performing Organization Address City/[facility]/ZIP Code Phon [place] [address] 1515 Radha Arceo MD BRAF V600 E Interpretation and Report (12/23/2021 12:30 PM CDT) [facility] gist Method Time Signature Archived Previously 12/29/2021 [facility] Material diagnosed 10:18 AM CDT tissues from [place] [address] were selected for molecular analysis. Results will be reported separately. Specimen Anatomical Collection Method Collection Time Receive d Time (Source) Location / / Volume Laterality Tissue 12/23/2021 12:30 12/23/2021 PM CDT 12:30 PM CDT Clarita BRUNSON MDA IP AP BIOMARKERS Performing Organization Address City/State/ZIP Code Phon [place] [address] 1515 Radha Arceo FISH ROS1 Interpretation and Report (12/23/2021 12:30 PM CDT) Specimen Anatomical Collection Method Collection Time Receive d Time (Source) Location / / Volume Laterality Tissue 12/23/2021 12:30 12/23/2021 PM CDT 12:30 PM CDT Clarita BRUNSON MDA IP AP BIOMARKERS Performing Organization Address City/[facility]/ZIP Code Phon [place] [address] 1515 Radha [address] FISH RET Mutation Interpretation and Report (12/23/2021 12:30 PM CDT) Specimen Anatomical Collection Method Collection Time Receive d Time (Source) Location / / Volume Laterality Tissue 12/23/2021 12:30 12/23/2021 PM CDT 12:30 PM CDT Clarita BRUNSON MDA IP AP BIOMARKERS Performing Organization Address City/[facility]/ZIP Code Phon [place] [address] [address] FISH MET Interpretation and Report (12/23/2021 12:30 PM CDT) Specimen Anatomical Collection Method Collection Time Receive d Time (Source) Location / / Volume Laterality Tissue 12/23/2021 12:30 12/23/2021 PM CDT 12:30 PM CDT Clarita BRUNSON MDA IP AP BIOMARKERS Performing Organization Address City/[facility]/ZIP Code Phon [place] [address] 1515 Radha [address] FISH ALK translocation Interpretation and Report (12/23/2021 12:30 PM CDT) Specimen Anatomical Collection Method Collection Time Receive d Time (Source) Location / / Volume Laterality Tissue 12/23/2021 12:30 12/23/2021 PM CDT 12:30 PM CDT Clarita BRUNSON MDA IP AP BIOMARKERS Performing Organization Address City/[facility]/ZIP Code Phon [place] [address] [address] MRI Brain with and without Contrast (12/22/2021 8:43 PM CDT) Anatomical Region Laterality Modality Head Magnetic Resonance Specimen (Source) Anatomical Collection Method Collection Time Re ceived Time Location / / Volume Laterality 12/23/2021 9:24 AM CDT Impressions 12/23/2021 9:57 AM CDT Negative for intracranial metastasis. Narrative 12/23/2021 9:57 AM CDT FULL RESULT: Examination: MRI BRAIN W WO CONTRAST on 12/22/2021 8:43 PM Clinical History: Carcinoma, NOS of uppe r lobe, lung <Left> Indication: Cancer staging or restaging, New lung cancer Comparison: None. Technique: Multiplanar multisequence MR imaging of the brain was acquired with and without contrast. Findings: The moderate scattered foci of T2 hyperintensity in the cerebral white matter and sharri are nonspecific. Ventricles are normal in size and configuration without hydrocephalus. There is no acute infarction, mass, mass effect or midlin e shift.There is no abnormal parenchymal or leptomeningeal enhancement. Major intracranial vascular flow voids are maintained. Procedure Note Rafael Arrington MD - 12/23/2021 FULL RESULT: Examination: MRI BRAIN W WO CONTRAST on 12/22/2021 8:43 PM Clinical History: Carcinoma, NOS of uppe r lobe, lung <Left> Indication: Cancer staging or restaging, New lung cancer Comparison: None. Technique: Multiplanar multisequence MR imaging of the brain was acquired with and without contrast. Findings: The moderate scattered foci of T2 hyperintensity in the cerebral white matter and sharri are nonspecific. Ventricles are normal in size and configuration without hydrocephalus. There is no acute infarction, mass, mass effect or midline shift.There is no abnormal parenchymal or leptomeningeal enhancement. Major intracranial vascular flow voids are maintained. IMPRESSION: Negative for intracranial metastasis. Chuy Srinivasan MD IMG MRI ORDERABLES AFB Culture w/Smear (12/15/2021 3:47 PM CDT) Component Value Ref Test Analysis Performed At Patholo gist Range Method Time Signature Final Report No acid fast [place] bacteria isolated [place] at 8 weeks. [facility] Path Review - Partial antibiotic treatment can render AFB culture negative. AFB culture has sensitivity of 90%. [place] [employer] The results have been reviewed and electronically signed b y Pathologist: NEY HAWKINS MD #[id number] [facility] Acid Fast No Acid Fast [place] Stain Truant Bacilli seen in [place] direct smear [facility] Specimen Anatomical Collection Method Collection Time Receive d Time (Source) Location / / Volume Laterality Sputum 12/15/2021 3:47 12/15/2021 PM CDT 9:55 PM CDT Narrative [place] [facility] - 2 8:01 PM CDT Cultures are held 8 weeks before finaliz ation. Chuy Srinivasan MD MICROBIOLOGY - GENERAL ORDER AMY Performing Organization Address City/State/ZIP Code Phon e Number [facility] CANCER Unless otherwise noted, [place] [address] C[place] all lab tests performed by: Division of Pathology and Laboratory Medicine [address] [facility] Pathology Biopsy Interpretation (12/15/2021 3:03 PM CDT) Component Value Ref Test Analysis Performed Pathologis t Range Method Time At Signature Addendum 1 PD-L1 (Clone 22C3, [employer]) Tumoral Proport ion Score (TPS): 0% 12/16/2021 [facility] Addendum Assay Information: This assa y is manufactured by [employer] and uses a monoclonal anti-PD-L1, clone 22C3. It is performed on formalin-fixed paraffin- embedded tissue using an [employer] autostainer a 4 :39 PM electronically nd polymer based detection k it, as specified by the associate medical director. It is approved for use as a testing manager diagnostic assay for specific therapies on certain tumor types. Interpretation guidelines vary. Fo CDT signed by r tumoral percentage score ( TPS), the percentage of tumoral membranous labeling of any intensity is assessed. Please refer to the intended therapy package insert for appropriate use of results. Milil garcia characteristics on other tissue types such decalcified specimens and on non-approved tumor types and therapies cannot be guaranteed. MD Liv on 12/17/19 at 4:38 PM Submitted Lung mass [R91.8] 12/16/2021 [facility] Clinical 4:39 PM History CDT Diagnosis A. Lung, left upper lobe, endobronchial biopsy: 12/16/2021 [facility] Electronically 4:39 PM signed by SQUAMOUS CELL CARCINOMA CDT Mark Peck MD AW/GW on 12/17/19 at 12/16/2021 9:10 AM Gross A: 12/16/2021 [facility] Description Lung, left upper lobe, endob ronchial biopsy: Multiple soft, friable, jules to jules-brown tissue fragments, 0.8 x 0.4 x 0.2 cm in aggregate, entirely submitted in A1. ET 4:39 PM CDT Biomarker Primary 12/16/2021 [facility] Block(s) Tumor block: A1 4:39 PM CDT Disclaimer "Some tests 12/16/2021 [facility] reported here may 4:39 PM have been CDT developed and performance characteristics determined by [facility] Pathology and Laboratory Medicine. These tests have not been specifically cleared or approved by the U.S. Food and Drug Administration. If applicable, controls were reviewed and showed appropriate reactivity." Specimen Anatomical Collection Method Collection Time Receive d Time (Source) Location / / Volume Laterality Tissue (Lung, 12/15/2021 3:03 12/15/2021 Left Upper Lobe) PM CDT 4:36 PM CDT Comment: OBINNA BRONCHIAL TUMOR BIOPSY EBBX X6 Chuy Srinivasan MD LAB PATHOLOGY ORDERABLES Performing Organization Address City/State/ZIP Code Phon e Number [facility] LABS [facility] [place] [address] [address] (ABNORMAL) Cytology Image-Guided FNA Interpretation (12/15/2021 2:59 PM CDT) Only the most recent of6 resultswithin the time period is included. Component Value Ref Test Analysis Performed Pathologis t Range Method Time At Signature Gross A: 12/16/2021 [facility] Description Specimens procured: 2:03 PM 2 Diff Quik; 2 Pap Stain Slides CDT NO RINSE Size: 4.6 x 4.1 cm Specimen adequacy was performed by RENETTA Cook(ASCP). Immediate Adequate 12/16/2021 [facility] Assessment cellularity 2:03 PM CDT Major MALIGNANT (A) 12/16/2021 [facility] Cyndi ctronically Classification 2:03 PM teja d by Eryn Field MD on 12/16/2021 at 2:03 PM Diagnosis A. Lung, left upper lobe hilar mass, touch preparation: 12/16/2021 [facility] Electronically 2:03 PM signed by Eryn Bass SQUAMOUS CELL CARCINOMA GITA Field MD on 12/16/2021 at 2:03 PM Comment Please see the 12/16/2021 [facility] concurrent biopsy 2:03 PM report CDT ([id number]) for further evaluation. Retained/Biomark SR: 4 S 12/16/2021 [facility] er Testing 2:03 PM Biomarker Testing: CDT LUDWIG Cell Block: N/A MDDavid Pap: No MDL DQ: 1 Slide FISH DQ: 2 Slides Informational Some tests 12/16/2021 [facility] Points reported here may 2:03 PM have been CDT developed and performance characteristics determined by [facility] Pathology and Laboratory Medicine. These tests have not been specifically cleared or approved by the U.S. Food and Drug Administration. Specimen Anatomical Collection Method Collection Time Receive d Time (Source) Location / / Volume Laterality Fine Needle Asp 12/15/2021 2:59 12/16/19 22 (Lung, Left PM CDT 5:12 PM CDT Upper Lobe) Comment: OBINNA BRONCHIAL TUMOR TOUCH PREP Chuy Srinivasan MD LAB CYTOLOGY ORDERABLES Performing Organization Address City/State/ZIP Code Phon e Number [facility] [place] [address] 1515 Radha RAYMOND MD, MDA JOSE: Mutation Analysis Precision Panel Report (12/15/2021 1:39 PM CDT) Specimen (Source) Anatomical Collection Method Collection Time Re ceived Time Location / / Volume Laterality 12/15/2021 1:39 PM CDT Narrative This result has an attachment that is no t available. Clarita BRUNSON [facility] MOLECULAR DIAGNOSTICS (SEG[place] BROWN) Solid Tumor Genomic Assay Fusions 2018 Interpretation and Report (12/15/2021 1:39 PM CDT) Specimen (Source) Anatomical Collection Method Collection Time Re ceived Time Location / / Volume Laterality 12/15/2021 1:39 PM CDT Narrative This result has an attachment that is no t available. Clarita BRUNSON [facility]LECULAR DIAGNOSTICS (SE[place] BROWN) CG ALK FISH Interpretation and Report (12/15/2021 12:39 PM CDT) Specimen (Source) Anatomical Collection Method Collection Time Re ceived Time Location / / Volume Laterality 12/15/2021 12:39 PM CDT Narrative This result has an attachment that is no t available. Clarita BRUNSON [facility] CYTOGENETICS (SEGUNDO WHITE) CG ROS1 FISH Interpretation and Report (12/15/2021 12:39 PM CDT) Specimen (Source) Anatomical Collection Method Collection Time Re ceived Time Location / / Volume Laterality 12/15/2021 12:39 PM CDT Narrative This result has an attachment that is no t available. Clarita BRUNSON [facility] HP CYTOGENETICS (HP CG) CG MET FISH Interpretation and Report (12/15/2021 12:39 PM CDT) Specimen (Source) Anatomical Collection Method Collection Time Re ceived Time Location / / Volume Laterality 12/15/2021 12:39 PM CDT Narrative This result has an attachment that is no t available. Clarita BRUNSON [facility] CYTOGENETICS (HP CG) CG RET FISH Interpretation and Report (12/15/2021 12:39 PM CDT) Specimen (Source) Anatomical Collection Method Collection Time Re ceived Time Location / / Volume Laterality 12/15/2021 12:39 PM CDT Narrative This result has an attachment that is no t available. Clarita BRUNSON [facility] CYTOGENETICS (HP CG) Cytogenetics Specimen Collection -FFPE (12/15/2021 12:39 PM CDT) [facility] gist Method Time Signature Elisa Das Link [id number] Cytogenetics Yes [place] (Received) [facility] Specimen Anatomical Collection Method Collection Time Receive d Time (Source) Location / / Volume Laterality FFPE 12/15/2021 12:39 12/28/2021 PM CDT 12:39 PM CDT Clarita BRUNSON MDA HP CG NONBLOOD COLLECTIO NS Performing Organization Address City/State/ZIP Code Phon e Number [facility] CANCER Unless otherwise noted, [place] [address] [place] all lab tests performed by: Division of Pathology and Laboratory Medicine [address] (ABNORMAL) SPIROMETRY W/O DILATORS, DLCO AND BODY PLETHSMOGRAPHIC LUNG VOLUMES (12/14/2021 3:50 PM CDT) Analysis Performed At Patho logist Time Signature FVC (L) pre 1.112 (L) 2.256 - 12/14/2021 [facility] 3.497 L 4:50 PM CDT FEV1 (L) pre 0.400 (L) 1.693 - 12/14/2021 [place] 2.742 L 4:50 PM CDT FEV1/FVC (%) 35.933 (L) 68.052 - 12/14/2021 [place] pre 87.641 % 4:50 PM CDT DLCO_SB 5.682 (L) 6.297 - 12/14/2021 [place] ml/(min*mmHg) 26.463 4:50 PM CDT ml/(min*mm Hg) DLCOc_SB 5.831 (L) 6.297 - 12/14/2021 [place] ml/(min*mmHg) 26.463 4:50 PM CDT ml/(min*mm Hg) TLC (L) 6.976 (H) 3.387 - 12/14/2021 [place] 5.361 L 4:50 PM CDT RV (L) 5.736 (H) 1.188 - 12/14/2021 [facility] 2.339 L 4:50 PM CDT RV/TLC (%) 82.223 (H) 30.110 - 12/14/2021 [facility] 49.290 % 4:50 PM CDT FVC (% pred) 39 % 12/14/2021 [facility] pre 4:50 PM CDT FEV1 (%pred) 18 % 12/14/2021 [facility] pre 4:50 PM CDT FEV1/FVC (% 46 % 12/14/2021 [facility] pred) pre 4:50 PM CDT TLC (% pred) 159 % 12/14/2021 [facility] 4:50 PM CDT RV (% pred) 325 % 12/14/2021 [facility] 4:50 PM CDT RV/TLC (% 207 % 12/14/2021 [facility] pred) 4:50 PM CDT DLCO_SB (% 35 % 12/14/2021 [facility] pred) 4:50 PM CDT DLCOc_SB (% 36 % 12/14/2021 [facility] pred) 4:50 PM CDT Specimen (Source) Anatomical Collection Method Collection Time Re ceived Time Location / / Volume Laterality 12/14/2021 2:18 PM CDT Narrative This result has an attachment that is no t available. Ethan Askew MD PFT ORDERABLES Performing Organization Address City/State/ZIP Code Phon e Number [facility] 6 minute walk test (12/14/2021 3:16 PM CDT) Specimen (Source) Anatomical Collection Method Collection Time Re ceived Time Location / / Volume Laterality 12/14/2021 2:51 PM CDT Narrative This result has an attachment that is no t available. Ethan Askew MD PFT ORDERABLES Performing Organization Address City/State/ZIP Code Phon e Number [facility] COVID-19 (ROSE-CoV-2) PCR Asymptomatic (12/14/2021 7:25 AM CDT) Component Value Ref Range Test Analysis Performed Pathologis t Method Time At Signature COVID19 SARS Pre-Out of OR [place] Indication Procedure [facility] COVID19 SARS Not Detected Not [place] Result Detected [facility] COVID19 SARS SARS-CoV-2 NOT Detected. UT Interpretation NEY Reference Range: Not Detected [facility] Methodology: The [employer]rey Real Time SARS-CoV-2 assay is a qualitative real-time reverse fashion supervisor polymerase chain reaction (jitterbug operator-PCR) test to detect RNA from SARS-CoV-2 in nasal, nasopharyngeal and oropharyngeal swabs from patients with signs and symptoms of infection who ar e suspected of COVID-19 by their health care provider. The [employer]rey RealTime SARS-CoV-2 performed on the [employer] Baking[employer] System is a dual target assay with primers and probes for the RdRp and N genes. Results must be interpreted within the context of all relevant clinical and laboratory findings, and epidemiological risk factors. Positive results are indicative of the presence of SARS-CoV-2 RNA; clinical correlation with patient history and other diagnostic information is ne cessary to determine patient infection status. Positive results do not rule out bacterial infection or co-infection with other viruses. Negative results do not preclude SARS- CoV-2 infection and should not be used as the sole basis for patient management decisions. The [employer]rey RealTime SARS-CoV -2 assay is for in vitro diagnostic use under FDA Emergency Use Authorization only. Testing is limited to laboratories certified under the Clinical Laboratory Improvement Blanca ndments of 1988 (CLIA), 42U.S.C. 263a, to perform high complexity tests. The T est was performed by the CLIA-certified, high- complexity Molecular Diagnostics Laboratory (MDL) at [facility] under the Food and Drug Administration (FDA) s Emergency Use Authorization. Factsheet for patients: https://www.[facility].org/AbbottFac tSheetPatients Factsheet for healthcare pro viders: https://www.[facility].org/AbbottFactSheetHCP Test performed by: [facility] Molecular Diagnostic Lab [address] [facility] [place] [address] Specimen (Source) Anatomical Collection Method Collection Time Re ceived Time Location / / Volume Laterality Nasopharyngeal Swab 12/14/2021 7:25 11/27 AM CDT 10:13 AM CDT Chuy Srinivasan MD MICROBIOLOGY - GENERAL ORDER AMY Performing Organization Address City/State/ZIP Code Phon e Number [facility] Unless otherwise noted, [place] [address] CENTER all lab tests performed by: Division of Pathology and Laboratory Medicine [address] [place] [address] US Leg Venous Doppler Left (12/11/2021 4:51 PM CDT) Anatomical Region Laterality Modality Leg, Extremity Ultrasound Specimen (Source) Anatomical Collection Method Collection Time Re ceived Time Location / / Volume Laterality 12/11/2021 5:00 PM CDT Impressions 12/11/2021 5:01 PM CDT Negative for deep venous thrombosis in t he left lower extremity. Narrative 12/11/2021 5:01 PM CDT Examination: US LEG VENOUS DOPPLER LEFT, 12/11/2021 4:51 PM Clinical History: Lung mass Indication: edema, Edema, Edema Comparison: None available. Technique: Grayscale and color/spectral Doppler ultrasound of the left lower extremity veins was performed. Findings: The left common femoral, femoral, and po pliteal veins demonstrate color flow, compressibility, and response to augmentation. The visualized posterior tibial, peroneal and anterior tibial veins are patent and compressible. Procedure Note Ana Reddy MD - 12/11/2021 Examination: US LEG VENOUS DOPPLER LEFT, 12/11/2021 4:51 PM Clinical History: Lung mass Indication: edema, Edema, Edema Comparison: None available. Technique: Grayscale and color/spectral Doppler ultrasound of the left lower extremity veins was performed. Findings: The left common femoral, femoral, and po pliteal veins demonstrate color flow, compressibility, and response to augmentation. The visualized posterior tibial, peroneal and anterior tibial veins are patent and compressible. IMPRESSION: Negative for deep venous thrombosis in t he left lower extremity. Sukhjinder Cardoza MD IMG US ORDERABLES EKG, 12-Lead (Scheduled) (12/11/2021) Specimen (Source) Anatomical Location Collection Method / Collectio n Time Received Time / Laterality Volume Narrative This result has an attachment that is no t available. Sukhjinder Cardoza MD ECG ORDERABLES Performing Organization Address City/State/ZIP Code Phon e Number MIRE[facility] IECG Hepatitis B Core Total Antibody (12/08/2021 5:50 PM CDT) P athologist Signature HBc Total Negative Negative [place] [place] Comment: Test Performed by: [facility] [address] , [place], [place] [address] Director Of Music Therapy: Jerry Wu M.D. Ph. D.; CLIA# [id number] Specimen Anatomical Collection Method Collection Time Receive d Time (Source) Location / / Volume Laterality Blood 12/08/2021 5:50 12/08/2021 PM CDT 6:47 PM CDT Sukhjinder Cardoza MD LAB BLOOD ORDERABLES Performing Organization Address City/State/ZIP Code Phon e Number [facility] CANCER Unless otherwise noted, [place], [place] [id number] [place] [address] all lab tests performed by: Division of Pathology and Laboratory Medicine [address] [place] [address] TMP HCV Ab [facility] Inter (12/08/2021 5:50 PM CDT) [facility] gist Method Time Signature HCV Ab Path There is NO [facility] serologic DONOR CENTER evidence of Hepatitis C virus antibody. Comment: MD Kim MURPHY [id number] Dictated by: MD Kim MURPHY 1200 6 Dictated Date/Time: 12.10.2021 8:22 AM C DT Transcribed Date/Time: 12.10.2021 8:22 AM CDT Electronically Signed By: MD Kim DESAI [id number] on 12.10.2021 8:22 AM C Specimen Anatomical Collection Method Collection Time Receive d Time (Source) Location / / Volume Laterality Blood 12/08/2021 5:50 12/09/2021 PM CDT 2:46 PM CDT Sukhjinder Cardoza MD LAB BLOOD ORDERABLES Performing Organization Address City/[facility]/ZIP Code Phon e Number [facility] DON[facility] [address] [address] Hepatitis C Virus Ab (12/08/2021 5:50 PM CDT) [facility] gist Method Time Signature HCVAb. Non Reactive Non Reactive [facility] Comment: Antibody detection in the immunocompromi sed and immunosuppressed population may be delayed or absent entirely. Therefore serial testing, correlation with other clinical findings, and supplemental testin g (if available) should be taken into co nsideration when interpreting the results. Performed at: [facility] Blood Donor [address] [address] Specimen Anatomical Collection Method Collection Time Receive d Time (Source) Location / / Volume Laterality Blood 12/08/2021 5:50 12/09/2021 PM CDT 2:46 PM CDT Sukhjinder Cardoza MD LAB BLOOD ORDERABLES Performing Organization Address [facility] Phon e Number [facility] [address] [address] Hepatitis B Surface Ag w/Confirm (12/08/2021 5:50 PM CDT) athologist [facility] Hep Bs Ag-[place] Negative Negative [facility] Comment: Test Performed by: [facility] [address] [address] Director Of Music Therapy: Jerry Wu M.D. Ph. D.; CLIA# [id number] Specimen Anatomical Collection Method Collection Time Receive d Time (Source) Location / / Volume Laterality Blood 12/08/2021 5:50 12/08/2021 PM CDT 6:47 PM CDT Sukhjinder Cardoza MD LAB BLOOD ORDERABLES Performing Organization Address City/[facility]/ZIP Code Phon e Number [facility] Unless otherwise noted, [place], [place] [id number] [place] [address] all lab tests performed by: Division of Pathology and Laboratory Medicine [address] [place] [address] Hepatitis B Total Ig Core Ab (SCREENING) (anti-HBc total Ig; HBcAb total Ig) (12/08/2021 5:50 PM CDT) athologist Signature HBcAb Received See Note [facility] Comment: HBcAb was sent to a reference l ab for testing. Expect results on Hepatitis B Core Total Ab within 96 hours. Specimen Anatomical Collection Method Collection Time Receive d Time (Source) Location / / Volume Laterality Blood 12/08/2021 5:50 12/08/2021 PM CDT 6:46 PM CDT Sukhjinder Cardoza MD LAB BLOOD ORDERABLES Performing Organization Address City/[facility] Phon e Number [facility] Unless otherwise noted, [address] all lab tests performed by: Division of Pathology and Laboratory Medicine [address] [place] [address] Mariel[facility] Cryptococcal Ag Serum Path Review (12/08/2021 5:50 PM CDT) Component Value Ref Test Analysis [facility] At [facility] g[facility] Range Method Time Signature Crypto Ag, Reviewed and Electronically signed by Pathologist: [place] Serum [place] ARNULFO HAWKINS MD #[id number] [facility] Comment: Reference Range: NEGATIVE The Cryptococcal Antigen Lateral Flow As say is a dipstick sandwich immunographic assay. Positive results will be titered. ARNULFO HAWKINS MD - [id number] Dictated by: ARNUFLO HAWKINS MD - [id number] Dictated Date/Time: 12.10.2021 15:55 PM CDT Transcribed Date/Time: 12.10.2021 15:55 PM CDT Electronically Signed By: ARNULFO MANZANARES MD - [id number] on 12.10.2021 15:55 PM Specimen Anatomical Collection Method Collection Time Receive d Time (Source) Location / / Volume Laterality Blood 12/08/2021 5:50 12/09/2021 PM CDT 2:38 PM CDT Sukhjinder Cardoza MD MICROBIOLOGY - GENERAL ORDER AMY Performing Organization Address City/[facility] Phon e Number [facility] Unless otherwise noted, [address] all lab tests performed by: Division of Pathology and Laboratory Medicine [address] [place] [address] [facility] Cryptococcal Antigen, Serum (12/08/2021 5:50 PM CDT) Patholo gist Method Time Signature Cryptococcal Ag Negative Negative [place] MD Velez [facility] [place] Specimen Anatomical Collection Method Collection Time Receive d Time (Source) Location / / Volume Laterality Blood 12/08/2021 5:50 12/08/2021 PM CDT 9:12 PM CDT Sukhjinder Cardoza MD MICROBIOLOGY - GENERAL ORDER AMY Performing Organization Address City/State/ZIP Code Phon e Number [facility] CANCER Unless otherwise noted, [place] [address] [place] all lab tests performed by: Division of Pathology and Laboratory Medicine [facility] T-spot Tuberculosis (12/08/2021 5:50 PM CDT) athologist Signature Tspot TB Negative SeeBelow [facility] Comment: Normal Value: Negative A negative test result does not exclude the possibility of exposure to or infection with Mycobacter ium tuberculosis (M. tuberculosis). Patients with recent ex posure to TB infected individuals exhibiting a negati ve T-SPOT.TB result should be considered for retesting withi n 6 weeks or if other relevant clinical symptoms indicat e. Results from T-SPOT.TB testing must be used in conjun ction with each individual's epidemiological history, cu rrent medical status, and results of other diagnostic evaluations. The T-SPOT.TB test is qualitative and result s are reported as positive, borderline or negative, given that the test controls perform as expected. In line wi th the Centers for Disease Control and Prevention's 2009 re commendation to report quantitative measurements alongsi de the qualitative result, the laboratory provides spot cou nts for informational purposes only. The T-SPO T.TB test should not be interpreted as a quantitative test. Tspot TB Panel A 0 [facility] Tspot TB Panel B 0 [facility] Tspot TB Pos Cont Passed [facility] Comment: Lab test performed by: Lab Mnemonic: [facility], [place] [address] [place] [address] JOSEPH CONTRERAS MD,PHD Tspot TB NIL Cont Passed [facility] Specimen Anatomical Collection Method Collection Time Receive d Time (Source) Location / / Volume Laterality Blood 12/08/2021 5:50 12/08/2021 PM CDT 6:27 PM CDT Narrative [facility] - 12/11/2021 12:15 PM CDT If scheduling this lab at one of the following locations, it can only be collected on Tuesday, Tuesday, and Tuesday due to collection/processing restrictions: [facility] REG DIAG LAB CTR [facility] REGS DIAG LAB CTR [place] - REGWL DIAG LAB CTR [facility] REG DAIG LAB CTR DI [facility] DIAG LAB CTR [facility] - [facility]I DIAG LAB CTR Sukhjinder Cardoza MD LAB BLOOD ORDERABLES Performing Organization Address [facility] Phon e Number [facility] Histoplasma Ab Screen (12/08/2021 5:50 PM CDT) athologist [facility] Histo Immuno Negative Negative [place] [facility] Comment: A negative complement fixation and immun odiffusion (CF/ID) result does not exclude the diagnosis of histoplasmosis. Repeat testing by CF/ID in 1-2 weeks if clinically indicated. Test Performed by: [place] [address] Director Of Music Therapy: Jerry Wu M.D. Ph. D.; CLIA# [id number] Histo Mycel Ab-[place] Negative Negative [place] [facility] Histo Yeast Ab-[place] Negative Negative [place] [facility] Specimen Anatomical Collection Method Collection Time Receive d Time (Source) Location / / Volume Laterality Blood 12/08/2021 5:50 12/08/2021 PM CDT 6:47 PM CDT Sukhjinder Cardoza MD LAB BLOOD ORDERABLES Performing Organization Address [facility] Phon e Number [facility] Unless otherwise noted, [place], [place] [phone] [place] [address] all lab tests performed by: Division of Pathology and Laboratory Medicine [facility] Radhashwetha Arceo Coccidioides Ab (12/08/2021 5:50 PM CDT) athologist [facility] Cocci Comp Negative Negative [place] Fix-[facility] Cocci IgG-[place] Negative Negative [facility] Cocci IgM-[place] Negative Negative [facility] Comment: A negative complement fixation and immun odiffusion (CompF/ImmDiff) result does not exclude the diagnosis of coccidioidomycosis. Repeat testing by CompF/ImmDiff in 2-3 weeks if clinically indicated. Test Performed by: [facility] [address] [place], [place] [address] Director Of Music Therapy: Jerry Wu M.D. Ph. D.; IA# [id number] Specimen Anatomical Collection Method Collection Time Receive d Time (Source) Location / / Volume Laterality Blood 12/08/2021 5:50 12/08/2021 PM CDT 6:47 PM CDT Sukhjinder Cardoza MD LAB BLOOD ORDERABLES Performing Organization Address City/State/ZIP Code Phon e Number [facility] Unless otherwise noted, [address] all lab tests performed by: Division of Pathology and Laboratory Medicine [facility] Radha Arceo Hepatitis B Surface Ag (12/08/2021 5:50 PM CDT) athologist Signature HBsAg Received See Note [facility] Comment: HBsAg was sent to a reference l ab for testing. Expect results on Hepatitis B Surface Antigen w/ Confirm within 96 h ours. Specimen Anatomical Collection Method Collection Time Receive d Time (Source) Location / / Volume Laterality Blood 12/08/2021 5:50 12/08/2021 PM CDT 6:46 PM CDT Sukhjinder Cardoza MD LAB BLOOD ORDERABLES Performing Organization Address City/[facility]/ZIP Code Phon e Number [facility] Unless otherwise noted, [address] all lab tests performed by: Division of Pathology and Laboratory Medicine [facility] Radha Arceo TSH (12/08/2021 5:50 PM CDT) athologist Signature TSH 0.47 0.27 - 4.20 [facility] mcunit/ CANCER CENTER Specimen Anatomical Collection Method Collection Time Receive d Time (Source) Location / / Volume Laterality Blood 12/08/2021 5:50 12/08/2021 PM CDT 6:23 PM CDT Sukhjinder Cardoza MD LAB BLOOD ORDERABLES Performing Organization Address City/[facility]/ZIP Code Phon e Number [facility] CANCER Unless otherwise noted, [address] all lab tests performed by: Division of Pathology and Laboratory Medicine [facility] Bellevueshwetha Arceo OSI Interventional (11/24/2021 2:13 PM CDT) Specimen (Source) Anatomical Location Collection Method / Collectio n Time Received Time / Laterality Volume Narrative Systemgenerated, Documentation - 022 2:13 PM CDT Study acquired at another institution. For comparison only. No MD Brew[place] originated interpretation requested or a vailable. Sukhjinder Cardoza MD IMG OUTSIDE IMAGE ORDERABLES OSI CT Chest (11/23/2021 2:12 PM CDT) Specimen (Source) Anatomical Location Collection Method / Collectio n Time Received Time / Laterality Volume Narrative Systemgenerated, Documentation - 022 2:13 PM CDT Study acquired at another institution. For comparison only. No MD [place] originated interpretation requested or a vailable. Sukhjinder Cardoza MD IMG OUTSIDE IMAGE ORDERABLES OSI Chest (11/22/2021 2:12 PM CDT) Specimen (Source) Anatomical Location Collection Method / Collectio n Time Received Time / Laterality Volume Narrative Systemgenerated, Documentation - 022 2:12 PM CDT Study acquired at another institution. For comparison only. No MD [place] originated interpretation requested or a vailable. Sukhjinder Cardoza MD IMG OUTSIDE IMAGE ORDERABLES after 03/21/2021 Insurance Payer Benefit Plan / Subscriber ID Effective Dates Phone Addre ss Type Group [employer] P[place] POS [id number] 2021-Present [address] [place] [address] Care Teams Merchandising Lead Relationship Specialty Start Date End Date Renetta Morillo MD PCP - External Primary Family Practice 11/26/21 [address] [facility] [place] [address] Nas Aiken, PCP - External Follow Up Pulmonary Medicine 10/29 09/19 MD [place] [address] [place] [id number] Sukhjinder Cardoza MD PCP - General Internal Medicine 12/03/[address] [place] [id number]
--- OUTSIDE RECORDS SUMMARY | 2022-03-21 18:40 | XMS REPORT | Continuity of Care Document ---
:1960 Author Organization [facility] t Address [address] [place] [address] Dr. [address]. [address] [place] [address] Care Team Providers Name Role Phone Rajesh BROWN, Jillian Primary Care Physician SYSTEM, NOT IN Attending Clinician Unavailable Sloan HUSAIN, Demetra Attending Clinician Zi CARDOZA Attending Clinician Unavailable Kelsey BRUNSON Attending Clinician Celso RN, P Attending Clinician Unavailable KELSEY Attending Clinician Unavailable Zi Cardoza MD Attending Clinician Raphael BROWN Attending Clinician Adeel REED K Attending Clinician RAPHAEL Attending Clinician Unavailable Philip BELCHER Attending Clinician Yousuf GILLETTE Attending Clinician Unavailable PHILIP Attending Clinician Unavailable Kush BROWN Attending Clinician KUSH Attending Clinician Unavailable Mary Grace Harmon PharmD Attending Clinician Lubna RN, S Attending Clinician Unavailable Demarcus Kern Attending Clinician Unavailable Justyn GILLETTE, T Attending Clinician Unavailable Scott Perry Attending Clinician Beryl Veloz Attending Clinician Unavailable MARIA ANTONIA Attending Clinician Unavailable Isael RN Attending Clinician Unavailable Maria L BROWN Attending Clinician Fer GILLETTE C Attending Clinician Unavailable Roney BOWER, E Attending Clinician Judah GILLETTE, S Attending Clinician Unavailable Luis Fernando BRUNSON Attending Clinician Cherrie BICYCLE I ASSEMBLER, H Attending Clinician Chandana SILVERIO, A Attending Clinician Carlo GILLETTE, M Attending Clinician Anders GILLETTE Attending Clinician Unavailable Rik BROWN Attending Clinician Taina GILLETTE C Attending Clinician Unavailable Romelia Wilson Attending Clinician Unavailable Cathleen GILLETTE, L Attending Clinician Unavailable Will Ji MD Attending Clinician Garrison Enamorado Attending Clinician Minerva BROWN Attending Clinician MINERVA Attending Clinician Unavailable Ruth Ann Srinivasan MD Attending Clinician Ruth Ann SRINIVASAN Attending Clinician Unavailable Rigoberto BROWN Attending Clinician Darcy BROWN Attending Clinician Kelly REED Attending Clinician Caleb SILVERIO Attending Clinician Alexandro BRUNSON Attending Clinician SABAS Attending Clinician Unavailable Sabas BROWN Attending Clinician Garrison Dennis RN Attending Clinician Unavailable Umu Lovell RN Attending Clinician Unavailable Stefan BELCHER Attending Clinician Jillian MENA Attending Clinician Unavailable Jillian Mena MD Attending Clinician FRANCA FLEMING Attending Clinician Unavailable Ruth Ann SRINIVASAN Admitting Clinician Unavailable FRANCA FLEMING Admitting Clinician Unavailable Payers Payer Name Policy Type Policy Number Effective Date Expiration Date S ge [facility] - [id number] 2020 00:00:00 OUT OF STATE Problems Condition Condition Condition Status Onset Resolution Last Treating Co mments Source Name Details Category Date Date Treatment Clinician Date Malnutriti Malnutriti Disease Active U nivers on of on of 02-16 ity of moderate moderate 00:00: [place] degree degree 00 MD Radha casey [facility] 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 12-23 ity of carcinoma carcinoma 00[place] left of left 00 lung lung [facility] Chronic Chronic Disease Active Univers obstructiv obstructiv 12-23 it y of e e 00:00: [place] pulmonary pulmonary 00 disease disease [facility] Coronary Coronary Disease Active Unive rs arterioscl arterioscl 12-23 it y of erosis erosis 00:00: [place] 00 MD Radha casey [facility] Coronary Coronary Disease Active Unive rs artery artery 12-23 ity of disease [place] coronary coronary artery artery [facility] bypass bypass n graft graft [facility] Depression Depression Disease Active U nivyolanda NOS NOS 12-23 ity of 00:00: [place] 00 MD Radha casey [facility] Chronic Chronic Disease Active Univers pain pain 12-23 ity of 00:00: [place] 00 MD Radha casey [facility] Tobacco Tobacco Disease Active Univers dependence dependence 12-17 it y of syndrome syndrome 00:00: [place] 00 MD Radha casey [facility] Coronary Coronary Disease Active 2020-08 Unive rs artery artery 1-17 ity of disease disease 00:00: [place] [facility] COPD with COPD with Disease Active 2020-08 Uni vers asthma asthma 1-17 ity of 00:00: [place] [facility] Mixed Mixed Disease Active 2020-08 Univers hyperlipid hyperlipid 1-17 it y of emia emia 00:00: [place] [facility] Essential Essential Disease Active 2020-08 Uni vers hypertensi hypertensi 1-17 it y of on on 00:00: [place] [facility] Chronic Chronic Disease Active 2020-08 Univers back pain back pain 1-17 ity of 00:00: [place] [facility] History of History of Disease Active 2020-08 U nivyolanda skin skin 1-17 ity of cancer cancer 00:00: [place] [facility] Atelectasi Atelectasi Disease Active 2016-[address] [facility] of both s of both 09-26 [facility] s lungs lungs 00:00: Medical 00 Center Acute Acute Disease Active 2016-[address] [facility] [address] pulmonary pulmonary 09-26 [facility] s insufficie insufficie 00:00: Me dical ncy ncy 00 Center following following thoracic thoracic surgery surgery Postoperat Postoperat Disease Active 2016-[address] gume anemia gume anemia 09-26 Tammy kes due to due to 00:00: Medical acute acute 00 Center blood loss blood loss Acute Acute Disease Active 2016-[address] [facility] [address] pulmonary pulmonary 09-26 Luke s edema edema 00:00: [facility] 00 [place] S/P CABG x S/P CABG x Disease Active 2016-08 U nivers 3 3 09-26 ity of 00:00: [address] Branch ACBx3 (Dr. GONZALEZx3 ( Disease Active 2016-[address] Cornelio, Cornelio, 09-25 [facility] 11.[facility].17[facility] 11.29.17) 00:00: [facility] 00 Center Lung mass Lung mass Disease Resolve 2021-12-23 2021-12-23 Univers d 4-12 00:00:00 12:54:39 ity of 00:00: [place] [address] [facility] Allergies, Adverse Reactions, Alerts Allergy Allergy Status Severity Reaction(s) Onset Inactive Treating Comm ents Source Name Type Date Date Clinician CHLORHEX DRUG Active High Itching 2016-08 MD ARIELLA TYLER 09-26 [facility] 00:00: n 00 CHLORHEX DRUG Active High Itching 2016-08 MD ARIELLA TYLER 09-26 [facility] 00:00: n 00 CHLORHEX DRUG Active High Itching 2016-08 MD KRISHNAN INGREDI 09-26 [place] 00:00: n 00 CHLORHEX DRUG Active High Itching 2016-08 MD KRISHNAN INGREDI 09-26 [place] 00:00: n 00 CHLORHEX DRUG Active High Itching 2016-08 MD ARIELLA SHORTI 09-26 [place] 00:00: n 00 CHL[place]HEX DRUG Active High Itching 2016-08 MD ARIELLA TYLER 09-26 [place] 00:00: n 00 CHLORHEX DRUG Active High Itching 2016-08 MD ARIELLA TYLER 09-26 [place] 00:00: n 00 CHLORHEX DRUG Active High Itching 2016-08 MD ARIELLA TYLER 09-26 [place] 00:00: n 00 CHLORHEX DRUG Active High Itching 2017- MD KRISHNAN INGREDI 09-26 [facility] 00:00: n 00 CHLORHEX DRUG Active High Itching 2017 MD KRISHNAN INGREDI 09-26 [place] 00:00: n 00 CHLORHEX DRUG Active High Itching 2017 MD KRISHNAN INGREDI 09-26 [facility] 00:00: n 00 CHLORHEX DRUG Active High Itching 2017- MD KRISHNAN INGREDI 09-26 [facility]o 00:00: n 00 CHLORHEX DRUG Active High Itching 2017 MD KRISHNAN INGREDI 09-26 [place] 00:00: n 00 CHLORHEX DRUG Active High Itching 2016-08 MD KRISHNAN INGREDI 09-26 [place] 00:00: n 00 CHLORHEX DRUG Active High Itching 2016-08 MD KRISHNAN INGREDI 09-26 [place] 00:00: n 00 CHLORHEX DRUG Active High Itching 2016-08 MD KRISHNAN INGREDI 09-26 Anderso 00:00: n 00 CHLORHEX DRUG Active High Itching 2016-08 MD KRISHNAN INGREDI 09-26 Anderso 00:00: n 00 CHLORHEX DRUG Active High Itching 2016-08 MD KRISHNAN INGREDI 09-26 [place]o 00:00: n 00 CHLORHEX DRUG Active High Itching 2016-08 MD KRISHNAN INGREDI 09-26 [place]o 00:00: n 00 CHLORHEX DRUG Active High Itching 2016-08 MD KRISHNAN INGREDI 09-26 [place]o 00:00: n 00 CHLORHEX DRUG Active High Itching 2017- MD KRISHNAN INGREDI 09-26 Anderso 00:00: n 00 CHLORHEX DRUG Active High Itching 2017- MD KRISHNAN INGREDI 09-26 Anderso 00:00: n 00 CHLORHEX DRUG Active High Itching 2016-08 MD KRISHNAN INGREDI 09-26 [place]o 00:00: n 00 CHLORHEX DRUG Active High Itching 2016-08 MD KRISHNAN INGREDI 09-26 Anderso 00:00: n 00 CHLORHEX DRUG Active High Itching 2016-08 MD KRISHNAN INGREDI 09-26 [place]o 00:00: n 00 CHLORHEX DRUG Active High Itching 2016- MD KRISHNAN INGREDI 09-26 Anderso 00:00: n 00 CHLORHEX DRUG Active High Itching 2017- MD KRISHNAN INGREDI 09-26 Anderso 00:00: n 00 CHLORHEX DRUG Active High Itching 2017- MD KRISHNAN INGREDI 09-26 Anderso 00:00: n 00 CHLORHEX DRUG Active High Itching 2017- MD KRISHNAN INGREDI 09-26 Anderso 00:00: n 00 CHLORHEX DRUG Active High Itching 2017 MD KRISHNAN INGREDI 09-26 Anderso 00:00: n 00 CHLORHEX DRUG Active High Itching 2017 MD KRISHNAN INGREDI 09-26 Anderso 00:00: n 00 CHLORHEX DRUG Active High Itching 2016-08 MD KRISHNAN INGREDI 09-26 Anderso 00:00: n 00 CHLORHEX DRUG Active High Itching 2016-08 MD KRISHNAN INGREDI 09-26 Anderso 00:00: n 00 CHLORHEX DRUG Active High Itching 2016-08 MD KRISHNAN INGREDI 09-26 Anderso 00:00: n 00 CHLORHEX DRUG Active High Itching 2017- MD KRISHNAN INGREDI 09-26 Anderso 00:00: n 00 CHLORHEX DRUG Active High Itching 2016-08 MD KRISHNAN INGREDI 09-26 Anderso 00:00: n 00 CHLORHEX DRUG Active High Itching 2016- MD KRISHNAN INGREDI 09-26 Anderso 00:00: n 00 CHLORHEX DRUG Active High Itching 2016- MD KRISHNAN INGREDI 09-26 Anderso 00:00: n 00 CHLORHEX DRUG Active High Itching 2016-08 MD KRISHNAN INGREDI 09-26 Anderso 00:00: n 00 CHLORHEX DRUG Active High Itching 2016-08 MD KRISHNAN INGREDI 09-26 Anderso 00:00: n 00 CHLORHEX DRUG Active High Itching 2016-08 MD KRISHNAN INGREDI 09-26 Anderso 00:00: n 00 CHLORHEX DRUG Active High Itching 2016- MD KRISHNAN INGREDI 09-26 Anderso 00:00: n 00 CHLORHEX DRUG Active High Itching 2016- MD KRISHNAN INGREDI 09-26 Anderso 00:00: n 00 CHLORHEX DRUG Active High Itching 2016-08 MD KRISHNAN INGREDI 09-26 Anderso 00:00: n 00 CHLORHEX DRUG Active High Itching 2016-08 MD KRISHNAN INGREDI 09-26 Anderso 00:00: n 00 CHLORHEX DRUG Active High Itching 2017- MD KRISHNAN INGREDI 09-26 Anderso 00:00: n 00 CHLORHEX DRUG Active High Itching 2016-08 MD KRISHNAN INGREDI 09-26 Anderso 00:00: n 00 CHLORHEX DRUG Active High Itching 2017 MD KRISHNAN INGREDI 09-26 Anderso 00:00: n 00 CHLORHEX DRUG Active High Itching 2017- MD KRISHNAN INGREDI 09-26 Anderso 00:00: n 00 CHLORHEX DRUG Active High Itching 2016-08 MD KRISHNAN INGREDI 09-26 Anderso 00:00: n 00 CHLORHEX DRUG Active High Itching 2016-08 MD KRISHNAN INGREDI 09-26 Anderso 00:00: n 00 CHLORHEX DRUG Active High Itching 2016-08 MD KRISHNAN INGREDI 09-26 Anderso 00:00: n 00 CHLORHEX DRUG Active High Itching 2016-08 MD KRISHNAN INGREDI 09-26 Anderso 00:00: n 00 CHLORHEX DRUG Active High Itching 2016-08 MD KRISHNAN INGREDI 09-26 Anderso 00:00: n 00 CHLORHEX DRUG Active High Itching 2016-08 MD KRISHNAN INGREDI 09-26 Anderso 00:00: n 00 CHLORHEX DRUG Active High Itching 2016-08 MD KRISHNAN INGREDI 09-26 Anderso 00:00: n 00 CHLORHEX DRUG Active High Itching 2016-08 MD KRISHNAN INGREDI 09-26 Anderso 00:00: n 00 CHLORHEX DRUG Active High Itching 2016- MD KRISHNAN INGREDI 09-26 Anderso 00:00: n 00 CHLORHEX DRUG Active High Itching 2016- MD KRISHNAN INGREDI 09-26 Anderso 00:00: n 00 CHLORHEX DRUG Active High Itching 2016-08 MD KRISHNAN INGREDI 09-26 Anderso 00:00: n 00 CHLORHEX DRUG Active High Itching 2016-08 MD KRISHNAN INGREDI 09-26 Anderso 00:00: n 00 CHLORHEX DRUG Active High Itching 2016-08 MD KRISHNAN INGREDI 09-26 Anderso 00:00: n 00 CHLORHEX DRUG Active High Itching 2016-08 MD KRISHNAN INGREDI 09-26 Anderso 00:00: n 00 CHLORHEX DRUG Active High Itching 2017- MD KRISHNAN INGREDI 09-26 Anderso 00:00: n 00 CHLORHEX DRUG Active High Itching 2017- MD KRISHNAN INGREDI 09-26 Anderso 00:00: n 00 CHLORHEX DRUG Active High Itching 2017- MD KRISHNAN INGREDI 09-26 Anderso 00:00: n 00 CHLORHEX DRUG Active High Itching 2017 MD KRISHNAN INGREDI 09-26 Anderso 00:00: n 00 CHLORHEX DRUG Active High Itching 2017 MD KRISHNAN INGREDI 09-26 Anderso 00:00: n 00 CHLORHEX DRUG Active High Itching 2016-08 MD KRISHNAN INGREDI 09-26 Anderso 00:00: n 00 CHLORHEX DRUG Active High Itching 2016-08 MD KRISHNAN INGREDI 09-26 Anderso 00:00: n 00 CHLORHEX DRUG Active High Itching 2016-08 MD KRISHNAN INGREDI 09-26 Anderso 00:00: n 00 CHLORHEX DRUG Active High Itching 2017- MD KRISHNAN INGREDI 09-26 Anderso 00:00: n 00 CHLORHEX DRUG Active High Itching 2016-08 MD KRISHNAN INGREDI 09-26 Anderso 00:00: n 00 CHLORHEX DRUG Active High Itching 2016- MD KRISHNAN INGREDI 09-26 Anderso 00:00: n 00 CHLORHEX DRUG Active High Itching 2016- MD KRISHNAN INGREDI 09-26 Anderso 00:00: n 00 CHLORHEX DRUG Active High Itching 2017- MD KRISHNAN INGREDI 09-26 Anderso 00:00: n 00 CHLORHEX DRUG Active High Itching 2017 MD KRISHNAN INGREDI 09-26 Anderso 00:00: n 00 CHLORHEX DRUG Active High Itching 2016-08 MD KRISHNAN INGREDI 09-26 Anderso 00:00: n 00 CHLORHEX DRUG Active High Itching 2016- MD KRISHNAN INGREDI 09-26 Anderso 00:00: n 00 CHLORHEX DRUG Active High Itching 2016- MD KRISHNAN INGREDI 09-26 Anderso 00:00: n 00 CHLORHEX DRUG Active High Itching 2016- MD KRISHNAN INGREDI 09-26 Anderso 00:00: n 00 CHLORHEX DRUG Active High Itching 2016-08 MD KRISHNAN INGREDI 09-26 Anderso 00:00: n 00 CHLORHEX DRUG Active High Itching 2017- MD KRISHNAN INGREDI 09-26 Anderso 00:00: n 00 CHLORHEX DRUG Active High Itching 2016-08 MD KRISHNAN INGREDI 09-26 Anderso 00:00: n 00 CHLORHEX DRUG Active High Itching 2016-08 MD KRISHNAN INGREDI 09-26 Anderso 00:00: n 00 CHLORHEX DRUG Active High Itching 2017- MD KRISHNAN INGREDI 09-26 Anderso 00:00: n 00 CHLORHEX DRUG Active High Itching 2016-08 MD KRISHNAN INGREDI 09-26 Anderso 00:00: n 00 CHLORHEX DRUG Active High Itching 2016-08 MD KRISHNAN INGREDI 09-26 Anderso 00:00: n 00 CHLORHEX DRUG Active High Itching 2016-08 MD KRISHNAN INGREDI 09-26 Anderso 00:00: n 00 CHLORHEX DRUG Active High Itching 2016-08 MD KRISHNAN INGREDI 09-26 Anderso 00:00: n 00 CHLORHEX DRUG Active High Itching 2016-08 MD KRISHNAN INGREDI 09-26 Anderso 00:00: n 00 CHLORHEX DRUG Active High Itching 2016-08 MD KRISHNAN INGREDI 09-26 Anderso 00:00: n 00 CHLORHEX DRUG Active High Itching 2016-08 MD KRISHNAN INGREDI 09-26 Anderso 00:00: n 00 CHLORHEX DRUG Active High Itching 2016-08 MD KRISHNAN INGREDI 09-26 Anderso 00:00: n 00 CHLORHEX DRUG Active High Itching 2016- MD KRISHNAN INGREDI 09-26 Anderso 00:00: n 00 CHLORHEX DRUG Active High Itching 2016- MD KRISHNAN INGREDI 09-26 Anderso 00:00: n 00 CHLORHEX DRUG Active High Itching 2016-08 MD KRISHNAN INGREDI 09-26 Anderso 00:00: n 00 CHLORHEX DRUG Active High Itching 2016-08 MD KRISHNAN INGREDI 09-26 Anderso 00:00: n 00 CHLORHEX DRUG Active High Itching 2016-08 MD KRISHNAN INGREDI 09-26 Anderso 00:00: n 00 CHLORHEX DRUG Active High Itching 2016- MD KRISHNAN INGREDI 09-26 Anderso 00:00: n 00 CHLORHEX DRUG Active High Itching 2017- MD KRISHNAN INGREDI 09-26 Anderso 00:00: n 00 CHLORHEX DRUG Active High Itching 2017- MD KRISHNAN INGREDI 09-26 Anderso 00:00: n 00 CHLORHEX DRUG Active High Itching 2017- MD KRISHNAN INGREDI 09-26 Anderso 00:00: n 00 CHLORHEX DRUG Active High Itching 2017 MD KRISHNAN INGREDI 09-26 Anderso 00:00: n 00 CHLORHEX DRUG Active High Itching 2017 MD KRISHNAN INGREDI 09-26 Anderso 00:00: n 00 CHLORHEX DRUG Active High Itching 2016-08 MD KRISHNAN INGREDI 09-26 Anderso 00:00: n 00 CHLORHEX DRUG Active High Itching 2016-08 MD KRISHNAN INGREDI 09-26 Anderso 00:00: n 00 CHLORHEX DRUG Active High Itching 2016-08 MD KRISHNAN INGREDI 09-26 Anderso 00:00: n 00 CHLORHEX DRUG Active High Itching 2017- MD KRISHNAN INGREDI 09-26 Anderso 00:00: n 00 CHLORHEX DRUG Active High Itching 2016-08 MD KRISHNAN INGREDI 09-26 Anderso 00:00: n 00 CHLORHEX DRUG Active High Itching 2016-08 MD KRISHNAN INGREDI 09-26 Anderso 00:00: n 00 CHLORHEX DRUG Active High Itching 2016- MD KRISHNAN INGREDI 09-26 Anderso 00:00: n 00 CHLORHEX DRUG Active High Itching 2017 MD KRISHNAN INGREDI 09-26 Anderso 00:00: n 00 CHLORHEX DRUG Active High Itching 2016-08 MD KRISHNAN INGREDI 09-26 Anderso 00:00: n 00 CHLORHEX DRUG Active High Itching 2016-08 MD KRISHNAN INGREDI 09-26 Anderso 00:00: n 00 CHLORHEX DRUG Active High Itching 2016- MD KRISHNAN INGREDI 09-26 Anderso 00:00: n 00 CHLORHEX DRUG Active High Itching 2016- MD KRISHNAN INGREDI 09-26 Anderso 00:00: n 00 CHLORHEX DRUG Active High Itching 2016-08 MD KRISHNAN INGREDI 09-26 Anderso 00:00: n 00 CHLORHEX DRUG Active High Itching 2016-08 MD KRISHNAN INGREDI 09-26 Anderso 00:00: n 00 CHLORHEX DRUG Active High Itching 2016-08 MD KRISHNAN INGREDI 09-26 Anderso 00:00: n 00 CHLORHEX DRUG Active High Itching 2016-08 MD KRISHNAN INGREDI 09-26 Anderso 00:00: n 00 CHLORHEX DRUG Active High Itching 2016-08 MD KRISHNAN INGREDI 09-26 Anderso 00:00: n 00 CHLORHEX DRUG Active High Itching 2016-08 MD KRISHNAN INGREDI 09-26 Anderso 00:00: n 00 CHLORHEX DRUG Active High Itching 2016-08 MD KRISHNAN INGREDI 09-26 Anderso 00:00: n 00 CHLORHEX DRUG Active High Itching 2016-08 MD KRISHNAN INGREDI 09-26 Anderso 00:00: n 00 CHLORHEX DRUG Active High Itching 2016-08 MD KRISHNAN INGREDI 09-26 Anderso 00:00: n 00 CHLORHEX DRUG Active High Itching 2016-08 MD KRISHNAN INGREDI 09-26 Anderso 00:00: n 00 CHLORHEX DRUG Active High Itching 2016-08 MD KRISHNAN INGREDI 09-26 Anderso 00:00: n 00 CHLORHEX DRUG Active High Itching 2016-08 MD KRISHNAN INGREDI 09-26 Anderso 00:00: n 00 CHLORHEX DRUG Active High Itching 2016-08 MD KRISHNAN INGREDI 09-26 Anderso 00:00: n 00 Medical Drug Active Itching 2016-08 [facility], Allergy 09-26 allergic [facility] Miscella 00:00: reaction Medica l neous [address] [place] [address] CHLORHEX DRUG Active High ITCHING 2016-08 Univers IDINE INGREDI 09-26 ity of 00:00: [place] 00 [facility] Chlorhex Drug Active Itching 2016-08 [facility] rs idine Allergy 09-26 ity of 00:00: [place] 00 MD [facility] Family History Family Member Diagnosis Comments Start Date Stop Date Source Natural brother Atrial fibrillation [facility] Natural brother Coronary artery Univ ersity of disease [place] [facility] Natural father -Other cancer Univers ity [facility] Natural father Bladder [facility] Maternal uncle Heart failure Univers ity of [place] [facility] Maternal uncle Bone cancer [facility] [place] [facility] Natural mother Coronary artery Unive rsity of disease [facility] Natural mother Diabetes [facility] [place] [facility] Paternal Alzheimer's disease Unive rsity of grandfather Shey Jimenez [facility] Paternal uncle Colon cancer Universi ty of [place] MD [facility] Social History Social Habit Start Date Stop Date Quantity Comments Source History SDOH University o f Alcohol Std Drinks [facility] Cigarettes smoked 2022-03-18 2022-03-18 Univers ity of current (pack per 00:00:00 00:00:00 [facility] ) - Reported Cancer Ce nter Cigarette 2022-03-18 2022-03-18 University of pack-years 00:00:00 00:00:00 [place] MD Brandt monzon [facility] Tobacco use and 2022-03-18 2022-03-18 Smokeless Universit y of exposure 00:00:00 00:00:00 tobacco non-user [facility] Alcohol intake 2022-03-18 2022-03-18 Current drinker Unive rsity of 00:00:00 00:00:00 of alcohol [place] MD [facility]t mon[facility] (finding) [facility] History of tobacco 2022-03-18 Current smoker Un iversity of use 00:00:00 [place] MD Brandt monzon [facility] Exposure to 2022-03-07 2022-03-17 Not sure University of SARS-CoV-2 (event) 00:00:00 14:08:00 [facility] History SDOH 2021-12-17 2021-12-17 2-.3 every two Universi ty of Alcohol Comment 00:00:00 00:00:00 weeks on average Ghulam as [facility] Cancer [place] History SDOH 2021-12-08 2021-12-08 4 University o f Alcohol Frequency 00:00:00 00:00:00 [facility] History SDOH 2021-12-08 2021-12-08 1 University o f Alcohol Binge 00:00:00 00:00:00 [place] MD [facility] Center Education 2021-12-08 2021-12-08 13 University of 00:00:00 00:00:00 [place] MD Brandt monzon [facility] Sex [birth year] F Universit y of 00:00:00 00:00:00 [place] MD [facility] Smoking Status Start Date Stop Date Source Ex-smoker 2022-03-18 00:00:00 2022-03-18 00:00:00 [facility] Medications Ordered Filled Start Stop Current Ordering Indication Dosage Frequency Signature Comments Components Source Medication Medication Date Date Medication? Clinician (SIG) Name Name Kiesha CORONADO Yes Tobacco Apply 2 Univers 21 mg/24 hr 7-22 dependence patch to ity of transdermal 00:00: syndrome skin and [place] patch 00 change patch [place] daily as n directed Cancer for Center tobacco cessation (alternate sites). buPROPion Yes Tobacco 150mg Take 1 Un mannie (Wellbutrin 7-22 dependence tablet ity of XL) 150 mg 00:00: syndrome (150 mg) [place] 24 hr 00 by mouth tablet every [facility] morning. n Cancer Center aspirin 81 Yes 81mg Chew 81 mg U nivers mg chewable 7-13 daily. ity of tablet 08:44: [place] 24 MD [facility] albuterol Yes 2.5mg Inhale 2.5 U nivers (PROVENTIL, 7-13 mg by ity of VENTOLIN) 08:44: mouth [place] 2.5 mg/3 mL 24 needed. (0.083%) Anderso nebulizer n solution Cancer Center OLANZapine Yes Other TAKE 0.5 Un mannie (ZyPREXA) 5 6-27 insomnia (ONE-HALF) ity of mg tablet 00:00: TABLET BY Ghulam as 00 MOUTH EVERY 6 Anderso HOURS n NEEDED FOR Cancer ANXIETY Center AND 1 TABLET AT BEDTIME FOR SLEEP Kiesha CORONADO 2021- No Tobacco Apply 2 Univers 21 mg/24 hr 6-24 03- dependence patch to ity of transdermal 00:00: 00:00 syndrome skin and [place] patch 00 :00 change patch [place] daily as n directed Cancer for Center tobacco cessation (alternate sites). buPROPion 2021- No Tobacco 150mg Take 1 U nivers (Wellbutrin 6-27 - dependence tablet ity of XL) 150 mg 00:00: 00:00 syndrome (150 mg) [place] 24 hr 00 :00 by mouth MD tablet every [facility] morning. n Cancer Center HYDROcodone Yes Neoplasm 1{tbl} Take 1 Univers -acetaminop 6-24 related tablet by ity of hen (NORCO) 00:00: pain mouth [place] 10 mg-325 00 (acute) every 6 MD mg per (chronic) (six) Anderso tablet hours as n needed Cancer (pain). Center ondansetron Yes Squamous 8mg Take 1 Univers (ZOFRAN) 8 6-24 cell tablet (8 ity of mg tablet 00:00: carcinoma mg) by [place] 00 of left mouth MD lung every 8 Anders[facility] (eight) n hours as Cancer needed for Center nausea or vomiting. prochlorper Yes Squamous 10mg Take 1 Univers azine 6-22 cell tablet (10 ity of (Compazine) 00:00: carcinoma mg) by [place] 10 mg 00 of left mouth MD tablet lung every 6 Anderso (six) n hours as Cancer needed for Center nausea. ondansetron 2021- No Squamous 8mg Take 1 Univers (ZOFRAN) 8 6-22 06-24 cell tablet (8 ity of mg tablet 00:00: 00:00 carcinoma mg) by [place] 00 :00 of left mouth MD lung every 8 Anderso (eight) n hours as Cancer needed for Center nausea or vomiting. HYDROcodone 2021- No Neoplasm 1{tbl} Take 1 Univers -acetaminop 6-20 06-24 related tablet by ity of hen (NORCO) 00:00: 00:00 pain mouth as [place] 10 mg-325 00 :00 (acute) needed MD mg per (chronic) (pain). Brandt so tablet n Cancer Center nystatin 2021- No Oral thrush [id number] Swish and Univers (MYCOSTATIN 02-09 swallow 5 it y of ) 100,000 00:00: 04:59 mL [place] units/mL 00 :00 (500,000 MD suspension Units) 4 Brandt so (four) n times a Cancer day for 10 Center days. buPROPion 2021- No Tobacco 150mg Take 1 U nivers (Wellbutrin 02-02 dependence tablet ity of XL) 150 mg 00:00: 00:00 syndrome (150 mg) [place] 24 hr 00 :00 by mouth MD tablet every [facility] morning. n Cancer Center Nicoderm CQ 2021- No Tobacco Apply 2 Univers 21 mg/24 hr 01-20 dependence patch to ity of transdermal 00:00: 00:00 syndrome skin and [place] patch 00 :00 change MD patch [place] daily as n directed Cancer for Center tobacco cessation (alternate sites). buPROPion 2021- No Tobacco 300mg Take 1 U nivers (Wellbutrin 01-20 dependence tablet ity of XL) 300 mg 00:00: 00:00 syndrome (300 mg) [place] 24 hr 00 :00 by mouth MD tablet every Anderso morning. n Cancer Center OLANZapine 2021- No Other Take half Univers (ZyPREXA) 5 01-14 insomnia tablet i ty of mg tablet 00:00: 00:00 every 6 [place] hours as MD needed for [place] anxiety; n take 1 Cancer tablet at Center night for sleep HYDROcodone 2021- No Neoplasm 1{tbl} Take 1 Univers -acetaminop 01-14 related tablet by ity of hen (NORCO) 00:00: 00:00 pain mouth [place] 10 mg-325 00 :00 (acute) needed MD mg per (chronic) (pain). Brandt so tablet n Cancer Center ondansetron Squamous 8mg Take 1 Univers (ZOFRAN) 8 01-06 cell tablet (8 ity of mg tablet 00:00: 00:00 carcinoma mg) by [place] 00 :00 of left mouth MD lung every 8 [place]o (eight) n hours as Cancer needed for Center nausea or vomiting. Nicoderm CQ 2021- No Tobacco Apply 1 Univers 21 mg/24 hr 12-22 dependence patch to ity of transdermal 00:00: 00:00 syndrome skin and [place] patch 00 :00 change MD patch [place] daily as n directed [facility] for Center tobacco cessation (alternate sites). buPROPion 2021- No Tobacco 150mg Take 1 U nivers (WELLBUTRIN 12-22 dependence tablet ity of XL) 150 mg 00:00: 00:00 syndrome (150 mg) [place] 24 hr 00 :00 by mouth tablet every Anderso morning. n Cancer Center varenicline 2021- Tobacco One Tablet Univers (CHANTIX) 1 12-17 dependence PO once a ity of mg tablet 00:00: 00:00 syndrome day x 7 [place] 00 :00 days then MD twice a Anderso day n Cancer Center predniSONE Chronic 40mg Take 2 U nivers (DELTASONE) 12-14 obstructive tablets ity of 20 mg 00:00: 04:59 pulmonary (40 mg) by [place] tablet 00 :00 disease, mouth MD not daily for Anderso otherwise 5 days. n specified Cancer Center doxycycline Chronic 100mg Take 1 Univers (Vibramycin 12-14 obstructive capsule ity of ) 100 MG 00:00: 04:59 pulmonary (100 mg) [place] capsule 00 :00 disease, by mouth not twice Anderso otherwise daily for n specified 5 days. Cancer Center DULoxetine Yes 1{capsu Take 1 Un mannie (CYMBALTA) 4-01 le} capsule by ity of 60 mg 00:00: mouth [place] capsule 00 daily. MD Garcia [facility] ipratropium Yes 1mL Inhale 1 Un mannie (ATROVENT) 4-01 mL by ity of 0.02% 00:00: nebulizati [place] nebulizer 00 on daily. solution [facility] naloxone Yes 1{spray Inhale 1 Un mannie (NARCAN) 4 4-01 } spray into ity of mg/actuatio 00:00: each [place] n nasal 00 nostril as MD spray needed. [facility] clonazePAM Yes 1{tbl} Take 1 Uni vers (KlonoPIN) 4-01 tablet by ity of 2 mg tablet 00:00: mouth [place] 00 needed. MD Garcia [facility] amLODIPine Yes 1{tbl} Take 1 Uni vers (NORVASC) 5 4-01 tablet by ity of mg tablet 00:00: mouth [place] 00 daily. MD Radha casey [facility] albuterol Yes 1{puff} Inhale 1 U nivers (VENTOLIN 4-01 puff by ity of HFA,PROAIR 00:00: mouth as Ghulam as HFA) 90 00 needed. mcg/puff Anderso inhaler n [facility] Trelegy Yes 1{puff} Inhale 1 Uni vers Ellipta 3-30 puff by ity of 100-62.5-25 00:00: mouth [place] mcg dsdv 00 daily. MD Radha casey [facility] Vuity 1.25 Yes 1[drp] Administer Univers % drop 3-21 1 drop to ity of 00:00: both eyes [place] 00 twice MD daily. Radha [facility] HYDROcodone 2021- No 1{tbl} Take 1 U nivers -acetaminop 3-07 05-19 tablet by it y of hen (NORCO) 00:00: 00:00 mouth as [place] 10 mg-325 00 :00 needed. mg per Anderso tablet [facility] cyanocobala Yes 1mL Inject 1 Un mannie min 1-03 mL into ity of (VITAMIN 00:00: the [place] B-12) 1,000 00 shoulder, MD mcg/mL thigh, or Anderso injection buttocks n every 30 Cancer (thirty) Center days. IBUPROFEN 2020-08 Yes Take by [facility] ers ORAL 1-17 mouth as ity of 09:28: needed. [address] IBUPROFEN 2020-08 Yes Take by [facility] ers ORAL 1-17 mouth as ity of 09:28: needed. [address] IBUPROFEN 2020-08 Yes Take by [facility] ers ORAL 1-17 mouth as ity of 09:28: needed. [address] duloxetine 2020-08 Yes Take by Uni vers HCl 1-17 mouth ity of (DULOXETINE 09:28: daily. [place] ORAL[place] [facility] duloxetine 2020-08 Yes Take by Uni vers HCl 1-17 mouth ity of (DULOXETINE 09:28: daily. [place] ORAL[place] [facility] duloxetine 2020-08 Yes Take by Uni vers HCl 1-17 mouth ity of (DULOXETINE 09:28: daily. [place] ORAL) 03 [facility] aspirin 81 2020-08 Yes 81mg Take 81 mg U nivers mg chewable 1-17 by mouth ity of tablet 09:18: daily. [address] albuterol 2020-08 Yes 2.5mg Inhale 2.5 U nivers 2.5 mg /3 1-17 mg every 4 ity of mL (0.083 09:18: (four) [place] %) 33 hours as Medical nebulizer needed for Bran ch solution Wheezing or Shortness of Breath. aspirin 81 2020-08 Yes 81mg Take 81 mg U nivers mg chewable 1-17 by mouth ity of tablet 09:18: daily. [address] albuterol 2020-08 Yes 2.5mg Inhale 2.5 U nivers 2.5 mg /3 1-17 mg every 4 ity of mL (0.083 09:18: (four) [place] %) 33 hours as Medical nebulizer needed for Bran ch solution Wheezing or Shortness of Breath. aspirin 2020-08 Yes 81mg Take 81 mg U nivers mg chewable 1-17 by mouth ity of tablet 09:18: daily. [address] albuterol 2020-08 Yes 2.5mg Inhale 2.5 U nivers 2.5 mg /3 1-17 mg every 4 ity of mL (0.083 09:18: (four) [place] %) 33 hours as Medical nebulizer needed for Bran ch solution Wheezing or Shortness of Breath. gabapentin 2020-08 Yes 800mg Take 800 Un mannie 800 mg 1-17 mg by ity of tablet 09:14: mouth 4 [place] 40 (four) Medical times Branch daily. albuterol 2020-08 Yes 2{puff} Inhale 2 U nivers (VENTOLIN 1-17 Puffs ity of HFA) 90 09:14: every 6 [place] mcg/actuati 40 (six) Medical on inhaler hours as Branc h needed for Wheezing or Shortness of Breath. gabapentin 2020-08 Yes 800mg Take 800 Un mannie 800 mg 1-17 mg by ity of tablet 09:14: mouth 4 [place] 40 (four) Medical times Branch daily. albuterol 2020-08 Yes 2{puff} Inhale 2 U nivers (VENTOLIN 1-17 Puffs ity of HFA) 90 09:14: every 6 [place] mcg/actuati 40 (six) Medical on inhaler hours as Branc h needed for Wheezing or Shortness of Breath. gabapentin 2020-08 Yes 800mg Take 800 Un mannie 800 mg 1-17 mg by ity of tablet 09:14: mouth 4 [place] 40 (four) Medical times Branch daily. albuterol 2020-08 Yes 2{puff} Inhale 2 U nivers (VENTOLIN 1-17 Puffs ity of HFA) 90 09:14: every 6 [place] mcg/actuati 40 (six) Medical on inhaler hours as Branc h needed for Wheezing or Shortness of Breath. methylPREDN 2020-08 Yes [id number] Follow Univers ISolone 4 1-17 package ity of mg tablets 00:00: [facility] Branch methocarbam 2020-08 Yes [id number] 500mg Take 1 Univers oL 500 mg 1-17 tablet by ity o f tablet 00:00: mouth 4 [place] 00 (four) Medical times Branch daily as needed (muscle pain or spasm). methylPREDN 2020-08 Yes [id number] Follow Univers ISolone 4 1-17 package ity of mg tablets 00:00: [facility] Branch methocarbam 2020-08 Yes [id number] 500mg Take 1 Univers oL 500 mg 1-17 tablet by ity o f tablet 00:00: mouth 4 [place] 00 (four) Medical times Branch daily as needed (muscle pain or spasm). methylPREDN 2020-08 Yes [id number] Follow Univers ISolone 4 1-17 package ity of mg tablets 00:00: [facility] Branch methocarbam 2020-08 Yes [id number] 500mg Take 1 Univers oL 500 mg 1-17 tablet by ity o f tablet 00:00: mouth 4 [place] 00 (four) Medical times Branch daily as needed (muscle pain or spasm). methocarbam 2020-08- No 500mg Take 500 Univers ol 1-17 06-24 mg by ity of (ROBAXIN) 00:00: 00:00 mouth as Ghul[place] as 500 mg 00 :00 needed. MD [facility] amLODIPine Yes 5mg Take 5 mg Un mannie 5 mg tablet 9-30 by mouth ity of 00:00: daily. Medical Branch amLODIPine Yes 5mg Take 5 mg Un mannie 5 mg tablet 9-30 by mouth ity of 00:00: daily. Medical Branch amLODIPine Yes 5mg Take 5 mg Un mannie 5 mg tablet 9-30 by mouth ity of 00:00: daily. Medical Branch ascorbic 2021- No 1{tbl} Take 1 Univ ers acid 8-31 04-26 tablet by ity of (VITAMIN C) 00:00: 00:00 [place] 500 mg 00 :00 daily. MD newby [facility] metoprolol Yes 25mg Take 1 Unive rs tartrate 25 1-18 tablet by ity of mg tablet 00:00: mouth 2 (two) Medical times Branch daily. metoprolol Yes 25mg Take 1 Unive rs tartrate 25 1-18 tablet by ity of mg tablet 00:00: mouth 2 (two) Medical times Branch daily. metoprolol Yes 25mg Take 1 Unive rs tartrate 25 1-18 tablet by ity of mg tablet 00:00: mouth 2 (two) Medical times Branch daily. atorvastati 2020- [...] [facility] HFA 2-04 puff by [facility] (VENTOLIN 14:52: mouth via Med ical HFA) 90 06 inhaler Center mcg/actuati every 6 on inhaler (six) hours as needed for Wheezing. thiamine 2016-08 Yes 100mg QD Take [address] [facility] (VITAMIN 2-04 mg by [facility] B-1) 100 MG 14:52: mouth Medic al tablet 06 daily. [place] folic acid 2016-08 Yes 1mg QD Take [address] (FOLVITE) 1 2-04 by mouth Luke s MG tablet 14:52: daily. Medica l 06 [place] acetaminoph 2016-08 Yes 1{tbl} Take [address] en-codeine 2-04 tablet by Luke s (TYLENOL 00:00: mouth Medical #3) 300-30 00 every 6 Center mg per (six) tablet hours as needed for Pain. Max Daily Amount: 4 tablets gabapentin 2016-08 Yes 400mg Q.[id number] Take 0.[address] [facility] (NEURONTIN) 2-04 [id number] tablets [facility] 800 MG 00:00: 3D (400 mg Medical tablet 00 total) by Center mouth 3 (three) times daily. metoprolol 2016-08 Yes 25mg Q.5D Take 1 [facility] (LOPRESSOR) 2-04 tablet (25 Tammy kes 25 MG 00:00: mg total) Medical tablet 00 by mouth 2 [place] (two) times daily. gabapentin 2016-08 Yes 800mg Take 800 Un mannie (NEURONTIN) 2-04 mg by ity of 800 mg 00:00: mouth 4 [place] tablet 00 (four) MD times a Radha hernandez. [facility] metoprolol 2016-08 Yes 25mg Take 25 mg U nivers tartrate 2-04 by mouth ity of (LOPRESSOR) 00:00: twice [place] 25 mg 00 daily. tablet Andlivier [facility] Immunizations Ordered Filled Immunization Date Status Comments [facility] e Immunization Name Name SARS-COV-2 COVID-19 2020-11-15 Completed Unive rsity of PFIZER VACCINE 00:00:00 [place] [facility] SARS-COV-2 COVID-19 2020-11-15 Completed Unive rsity of PFIZER VACCINE 00:00:00 [place] [facility] SARS-COV-2 COVID-19 2020-11-15 Completed Unive rsity of PFIZER VACCINE 00:00:00 [place] [facility] SARS-COV-2 COVID-19 2020-10-25 Completed Unive rsity of PFIZER VACCINE 00:00:00 [place] [facility] SARS-COV-2 COVID-19 2020-10-25 Completed Unive rsity of PFIZER VACCINE 00:00:00 [place] [facility] SARS-COV-2 COVID-19 2020-10-25 Completed Unive rsity of PFIZER VACCINE 00:00:00 [place] [facility] Vital Signs Vital Name Observation Time Observation Value Comments Source Systolic blood 2021-07-15 15:13:00 122 mm[Hg] Univer sity of pressure [facility] Diastolic blood 2021-07-15 15:13:00 56 mm[Hg] Unive rsity of pressure [facility] Heart rate 2021-07-15 15:13:00 71 /min Universi ty of [facility] Body height 2021-07-15 15:13:00 165.1 cm Universi ty of [facility] Body weight 2021-07-15 15:13:00 55.792 kg Universi ty of [facility] BMI 2021-07-15 15:13:00 20.47 kg/m2 Universi ty of [facility] Oxygen saturation in 2021-07-15 15:13:00 97 /min University of Arterial blood by [facility] Pulse oximetry Branch Systolic blood 2022-03-17 22:27:43 122 mm[Hg] Univer sity of pressure [facility] Diastolic blood 2022-03-17 22:27:43 72 mm[Hg] Unive rsity of pressure [facility] Heart rate 2022-03-17 22:27:43 87 /min Universi ty of [facility] Body temperature 2022-03-17 22:27:43 36.78 Treva Univ ersity of [facility] Respiratory rate 2022-03-17 22:27:43 18 /min Univ ersity of [facility] Body height 2022-03-17 22:27:43 157 cm Universi ty of [facility] Body weight 2022-03-17 22:27:43 50.7 kg Universi ty of [facility] BMI 2022-03-17 22:27:43 20.57 kg/m2 Universi ty of [facility] Oxygen saturation in 2022-03-17 22:27:43 97 /min University Arterial blood by Shey cox Pulse oximetry Cancer Center Procedures Procedure Date / Time Performing Clinician Source Performed COMPLETE BLOOD COUNT W/ 2022-03-17 19:04:00 Warren Cole [facility] DIFFERENTIAL [facility] ELECTROLYTE PANEL 2022-03-17 19:04:00 Kelsey [facility] MAGNESIUM LEVEL 2022-03-17 19:04:00 Kelsey [facility] BLOOD UREA NITROGEN 2022-03-17 19:04:00 Kelsey [facility] SERUM CREATININE 2022-03-17 19:04:00 Kelsey [facility] GLUCOSE, RANDOM 2022-03-17 19:04:00 Kelsey [facility] Results CBC 2022-03-17 19:04:00 Kelsey [facility] MANUAL DIFFERENTIAL 2022-03-17 19:04:00 Kelsey Warren [facility] SERUM CREATININE 2022-03-17 19:04:00 Kelsey [facility] .GLOMERULAR FILTRATION 2022-03-17 19:04:00 Warren Cole [facility] RATE [facility] RESEARCH PROTOCOL 2022-03-12 17:41:00 Ruth Bravo [facility] [id number] [facility] ELECTROLYTE PANEL 2022-03-10 14:52:00 [facility] MAGNESIUM LEVEL 2022-03-10 14:52:00 [facility] BLOOD UREA NITROGEN 2022-03-10 14:52:00 [facility] SER[facility] CREATININE 2022-03-10 14:52:00 [facility] GLUCOSE, RANDOM 2022-03-10 14:52:00 [facility] SERUM CREATININE 2022-03-10 14:52:00 [facility]OM[facility] FILTR[facility] 2022-03-10 14:52:00 Evans Palacios [facility] COMPLETE BLOOD COUNT W/ 2022-03-10 14:34:00 Evans Palacios [facility] Results CBC 2022-03-10 14:34:00 Evans Palacios [facility] MANUAL DIFFERENTIAL 2022-03-10 14:34:00 Evans Palacios [facility] COMPLETE BLOOD COUNT W/ 2022-03-03 19:48:00 Evans Palacios [facility] ELECTROLYTE PANEL 2022-03-03 19:48:00 [facility] MAGNESIUM LEVEL 2022-03-03 19:48:00 Evans Palacios [facility] BLOOD UREA NITROGEN 2022-03-03 19:48:00 Evans Palacios [facility] SERUM CREATININE 2022-03-03 19:48:00 [facility] [place] [facility] GLUCOSE, RANDOM 2022-03-03 19:48:00 [facility] Results CBC 2022-03-03 19:48:[address] [facility] MANUAL DIFFERENTIAL 2022-03-03 19:48:00 Evans Palacios [place] [facility] SERUM CREATININE 2022-03-03 19:48:00 [facility] 2022-03-03 19:48:00 Evans Palacios [facility] COMPLETE BLOOD COUNT W/ 2022-02-24 14:25:00 Evans Palacios [facility] ELECTROLYTE PANEL 2022-02-24 14:25:00 [facility] [place] [facility] MAGNESIUM LEVEL 2022-02-24 14:25:00 Evans Palacios [facility] BLOOD UREA NITROGEN 2022-02-24 14:25:00 Evans Palacios [facility] SERUM CREATININE 2022-02-24 14:25:00 [facility] GLUCOSE, RANDOM 2022-02-24 14:25:00 Philip Evans [facility] RESEARCH PROTOCOL 2022-02-24 14:25:00 Ruth Bravo [facility] [id number] [facility] TROPONIN T 2022-02-24 14:25:00 [facility] Results CBC 2022-02-24 14:25:[address] [facility] MANUAL DIFFERENTIAL 2022-02-24 14:25:00 Philip Evans [facility] SERUM CREATININE 2022-02-24 14:25:00 Philip [facility] .GLOMERULAR FILTRATION 2022-02-24 14:25:00 Evans Palacios [facility] COMPLETE BLOOD COUNT W/ 2022-02-17 15:29:00 Evans Palacios [facility] DIFFERENTIAL [facility] ELECTROLYTE PANEL 2022-02-17 15:29:00 Evans Palacios [facility] MAGNESIUM LEVEL 2022-02-17 15:29:00 Philip Evans [facility] BLOOD UREA NITROGEN 2022-02-17 15:29:00 Philip Evans [facility] SERUM CREATININE 2022-02-17 15:29:00 Philip [facility] GLUCOSE, RANDOM 2022-02-17 15:29:00 Philip Evans [facility] Results CBC 2022-02-17 15:29:00 Evans Palacios [facility] MANUAL DIFFERENTIAL 2022-02-17 15:29:00 Evans Palacios [facility] SERUM CREATININE 2022-02-17 15:29:00 [facility] [place] [facility] .GLOMERULAR FILTRATION 2022-02-17 15:29:00 Evans Palacios [facility] RATE [facility] URINE CULTURE 2022-02-12 17:26:00 Maria L [facility] URINALYSIS WITH 2022-02-12 17:26:00 Maria L [facility] MICROSCOPIC IF INDICATED MD Jimenez [facility] URINALYSIS MICROSCOPIC 2022-02-12 17:26:00 Maria L [facility] POC GLUCOSE SCREEN 2022-02-12 16:22:00 Maria L [facility] POC VENOUS BLOOD GAS + 2022-02-12 16:00:00 Maria L [facility] LACTATE [facility] BLOODCULTURE 2022-02-12 15:52:00 Maria L [facility] COVID-19 (SARS-COV-2) 2022-02-12 15:52:00 Maria L [facility] ASYMPTOMATIC-LT [facility] AMMONIA LEVEL 2022-02-12 15:52:00 Maria L [facility] COMPLETE BLOOD COUNT W/ 2022-02-12 15:52:00 Maria L [facility] DIFFERENTIAL [facility] COMPREHENSIVE METABOLIC 2022-02-12 15:52:00 Maria L [facility] PANEL [facility] MAGNESIUM LEVEL 2022-02-12 15:52:00 Maria L [facility] PHOSPHORUS LEVEL 2022-02-12 15:52:00 Maria L [facility] PROTHROMBIN TIME 2022-02-12 15:52:00 Maria L [facility] APTT 2022-02-12 15:52:00 Maria L [facility] LACTATE DEHYDROGENASE 2022-02-12 15:52:00 Maria L [facility] Results CBC 2022-02-12 15:52:00 Maria L [facility] MANUAL DIFFERENTIAL 2022-02-12 15:52:00 Maria L [facility] GLUCOSE LEVEL 2022-02-12 15:52:00 Maria L [facility] BLOOD UREA NITROGEN 2022-02-12 15:52:00 Maria L [facility] ELECTROLYTE PANEL 2022-02-12 15:52:00 Maria L [facility] SERUM CREATININE 2022-02-12 15:52:00 Maria L [facility] .GLOMERULAR FILTRATION 2022-02-12 15:52:00 Maria L [facility] RATE [facility] CALCIUM LEVEL TOTAL 2022-02-12 15:52:00 Maria L [facility] ALBUMIN LEVEL 2022-02-12 15:52:00 Maria L [facility] ALKALINE PHOSPHATASE 2022-02-12 15:52:00 Maria L [facility] ALANINE AMINOTRANSFERASE 2022-02-12 15:52:00 [facility] ASPARTATE AMINOTRANSFERASE 2022-02-12 15:52:00 Juani [facility] TOTAL PROTEIN 2022-02-12 15:52:00 Maria L [facility] FRACTIONATED BILIRUBIN 2022-02-12 15:52:00 Maria L [facility] CT HEAD WO CONTRAST 2022-02-12 15:42:19 Maria L [facility] COMPLETE BLOOD COUNT W/ 2022-02-10 15:52:00 [facility] ELECTROLYTE PANEL 2022-02-10 15:52:00 [facility] 2022-02-10 15:52:00 [facility] BLOOD UREA NITROGEN 2022-02-10 15:52:00 Evans Palacios [facility] SERUM CREATININE 2022-02-10 15:52:00 Philip [facility] GLUCOSE, RANDOM 2022-02-10 15:52:00 Philip [facility] Results CBC 2022-02-10 15:52:00 W[facility]rop [facility] [place] [facility] MANUAL DIFFERENTIAL 2022-02-10 15:52:00 Philip Evans [facility] SERUM CREATININE 2022-02-10 15:52:00 Philip [facility] .GLOMERULAR FILTRATION 2022-02-10 15:52:00 Evans Palacios [facility] RATE [facility] COMPLETE BLOOD COUNT W/ 2022-02-03 15:07:00 Kelsey Warren [facility] ELECTROLYTE PANEL 2022-02-03 15:07:00 Kelsey [facility] MAGNESIUM LEVEL 2022-02-03 15:07:00 Kelsey Warren [facility] BLOOD UREA NITROGEN 2022-02-03 15:07:00 Kelsey [facility] SERUM CREATININE 2022-02-03 15:07:00 Kelsey [facility] GLUCOSE, RANDOM 2022-02-03 15:07:00 Kelsey [facility] Results CBC 2022-02-03 15:07:00 Kelsey [facility] MANUAL DIFFERENTIAL 2022-02-03 15:07:00 Kelsey Warren [facility] SERUM CREATININE 2022-02-03 15:07:00 Kelsey [facility] .GLOMERULAR FILTRATION 2022-02-03 15:07:00 Warren Cole [facility] RATE [facility] TROPONIN T 2022-02-03 14:55:00 Ruth Bravo [facility] PETCT INITIAL TREATMENT 2022-01-29 16:45:36 Kelsey [facility] STRATEGY [facility] COVID-19 (SARS-COV-2) 2022-01-28 16:00:00 Ruth Bravo [facility] PCR-ASYMPTOMATIC [facility] [place] MYOCARDIAL PERFUSION 2022-01-11 20:40:00 Ruth Bravo [facility] SPECT (STRESS AND REST) [facility] EKG-STRESS TEST 2022-01-11 00:00:00 Emily Lisa [facility] ECHOCARDIOGRAM 2022-01-07 20:48:16 Ruth Bravo [facility] STRAIN/SPECKLE TRACKING [facility] COMPLETE BLOOD COUNT W/ 2022-01-06 15:58:00 Kelsey [facility] DIFFERENTIAL [facility] ELECTROLYTE PANEL 2022-01-06 15:58:00 Kelsey [facility] MAGNESIUM LEVEL 2022-01-06 15:58:00 Kelsey Warren [facility] BLOOD UREA NITROGEN 2022-01-06 15:58:00 Kelsey Warren [facility] SERUM CREATININE 2022-01-06 15:58:00 Kelsey [facility] GLUCOSE, RANDOM 2022-01-06 15:58:00 Kelsey [facility] BILIRUBIN TOTAL 2022-01-06 15:58:00 Kelsey [facility] ALANINE AMINOTRANSFERASE 2022-01-06 15:58:00 [facility] ASPARTATE AMINOTRANSFERASE 2022-01-06 15:58:00 [facility] PROTOCOL 2022-01-06 15:58:00 Raphael [facility] [id number] [facility] LIPID PANEL 2022-01-06 15:58:00 [facility] HEMOGLOBIN A1C 2022-01-06 15:58:00 [facility] NT PRO BNP 2022-01-06 15:58:00 [facility] C REACTIVE PROTEIN 2022-01-06 15:58:00 Ruth Bravo [facility] [place] TROPONIN T 2022-01-06 15:58:00 [facility] Results CBC 2022-01-06 15:58:00 [facility] SERUM CREATININE 2022-01-06 15:58:00 Kelsey [facility] .GLOMERULAR FILTRATION 2022-01-06 15:58:00 Warren Cole [facility] RATE [facility] MANUAL DIFFERENTIAL 2022-01-06 15:58:00 Warren Cole [facility] PETCT SUBSEQUENT TREATMENT 2021-12-23 21:54:26 Sascha Franklin [facility] MD NGS BLOOD CONTROL 2021-12-23 18:13:00 Warren Cole [facility] [place] AP ROS1 FUSION ANALYSIS 2021-12-23 17:30:53 Warren Cole [facility] MATERIAL REQUEST [facility] AP FISH ALK MATERIAL 2021-12-23 17:30:53 Warren Cole [facility] REQUEST [facility] AP FISH MET MATERIAL 2021-12-23 17:30:53 Warren Cole [facility] REQUEST [facility] AP FISH RET MATERIAL 2021-12-23 17:30:53 Warren Cole [facility] REQUEST [facility] AP FISH ROS1 MATERIAL 2021-12-23 17:30:53 Warren Cole [facility] sit of [place] REQUEST MD Sim [facility] AP BRAF V600 E MUTATION 2021-12-23 17:30:53 Warren [facility] MAT[facility] REQUEST MD Roney Merida [facility] AP EGFR MUTATION 2021-12-23 17:30:53 Warren Cole [facility] MATERIAL REQUEST MD Roney Merida [facility] AP EML4/ALK FUSION 2021-12-23 17:30:53 Kelsey Warren [facility] [place] [facility] ANALYSIS MATERIAL REQUEST And [facility] AP KRAS MUTATION 2021-12-23 17:30:53 Kelsey Warren [facility] MATERIAL REQUEST MD Roney Merida [facility] AP NTRK1 FUSION 2021-12-23 17:30:53 Warren Cole [facility] y [facility] ANALYSIS MATERIAL REQUEST And [facility] AP NTRK2 FUSION 2021-12-23 17:30:53 Kelsey Warren Univers y [facility] ANALYSIS MATERIAL REQUEST And [facility] AP RET FUSION ANALYSIS 2021-12-23 17:30:53 Warren Cole [facility] [place] MATERIAL REQUEST MD Sim [facility] MRI BRAIN W WO CONTRAST 2021-12-23 01:43:54 Baldemar Franklin [facility] [place] [facility] CULTURE W/ SMEAR 2021-12-15 20:47:00 Baldemar Franklin [facility] PATHOLOGY BIOPSY 2021-12-15 20:03:00 Chuy Srinivasan [facility] INTERPRETATION [facility] CYTOLOGY IMAGE-GUIDED FNA 2021-12-15 19:59:00 Chuy Srinivasan U [facility] INTERPRETATION [facility] CYTOLOGY IMAGE-GUIDED FNA 2021-12-15 19:53:00 Chuy Srinivasan [facility] INTERPRETATION [facility] CYTOLOGY IMAGE-GUIDED FNA 2021-12-15 19:49:00 Chuy Srinivasan U [facility] INTERPRETATION [facility] CYTOLOGY IMAGE-GUIDED FNA 2021-12-15 19:47:00 Chuy Srinivasan U [facility] INTERPRETATION [facility] CYTOLOGY IMAGE-GUIDED FNA 2021-12-15 19:44:00 [facility] INTERPRETATION [facility] CYTOLOGY IMAGE-GUIDED FNA 2021-12-15 19:39:00 Chuy Srinivasan [facility] INTERPRETATION [facility] BRONCHOSCOPY WITH EBUS 3 2021-12-15 19:10:00 Chuy [facility]rinivasan [facility] OR MORE NODES [facility] HP MDA JOSE MUTATION 2021-12-15 18:39:00 [facility] ANALYSIS PRECISION PANEL [facility] RE[facility] HP SOLID TUMOR GENOMIC 2021-12-15 18:39:00 Kelsey [facility] ASSAY FUSIONS 2018 [place] Roney Cordoba ancer INTERPRETATION AND REPORT Center HP CYTOGENETICS BLOOD 2021-12-15 17:39:00 [facility] COLLECTION [facility] HP CG ROS1 FISH 2021-12-15 17:39:00 [facility] INTERPRETATION AND REPORT [facility] CG MET FISH 2021-12-15 17:39:00 [facility] INTERPRETATION AND REPORT [facility] CG ALK FISH 2021-12-15 17:39:00 [facility] INTERPRETATION AND REPORT [facility] CG RET FISH 2021-12-15 17:39:00 [facility] INTERPRETATION AND REPORT [facility] SPIROMETRY W/O DILATORS, 2021-12-14 20:50:51 Rigoberto [facility]maximiliano [facility] DLCO AND BODY [facility] PLETHSMOGRAPHIC LUNG Center VOLUMES 6 MINUTE WALK TEST 2021-12-14 20:16:14 [facility] COVID-19 (SARS-COV-2) 2021-12-14 12:25:00 Chuy Srinivasan [facility] PCR ASYMPTOMATIC [facility] US LEG VENOUS DOPPLER LEFT 2021-12-11 21:51:12 Silver Cardoza [facility] EKG, 12-LEAD (SCHEDULED) 2021-12-11 00:00:00 [facility] CRYPTOCOCCAL ANTIGEN, 2021-12-08 22:50:00 Silver Cardoza [facility] SERUM [facility] CRYPTOCOCCAL ANTIGEN, 2021-12-08 22:50:00 Silver Cardoza [facility] SERUM PATH REVIEW [facility] COMPREHENSIVE METABOLIC 2021-12-08 22:50:00 Silver Cardoza [facility] PANEL [facility] COMPLETE BLOOD COUNT W/ 2021-12-08 22:50:00 Silver Cardoza [facility] DIFFERENTIAL [facility] PROTHROMBIN TIME 2021-12-08 22:50:00 Silver Cardzoa [facility] APTT 2021-12-08 22:50:00 Silver Cardoza [facility] HEPATITIS B SURFACE 2021-12-08 22:50:00 Silver Cardoza [facility] ANTIGEN, SERUM [facility] HEPATITIS B CORE ANTIBODY 2021-12-08 22:50:00 Silver Card[facility]za [facility] HEPATITIS C VIRUS ANTIBODY 2021-12-08 22:50:00 Silver Cardoza [facility] THYROID STIMULATING 2021-12-08 22:50:00 Silver Cardoza [facility] HORMONE [facility] COCCIDIOIDES ANTIBODY 2021-12-08 22:50:00 [facility] HISTOPLASMA ANTIBODY 2021-12-08 22:50:00 [facility] SCREEN, SERUM [facility] T-SPOT TUBERCULOSIS 2021-12-08 22:50:00 Silver Cardoza [facility] [place] GLUCOSE LEVEL 2021-12-08 22:50:00 Silver Cardoza [facility] BLOOD UREA NITROGEN 2021-12-08 22:50:00 Silver Cardoza [facility] [place] ELECTROLYTE PANEL 2021-12-08 22:50:00 Silver Cardoza [facility] SERUM CREATININE 2021-12-08 22:50:00 Silver Cardoza [facility] .GLOMERULAR FILTRATION 2021-12-08 22:50:00 Silver Cardoza [facility] CALCIUM LEVEL TOTAL 2021-12-08 22:50:00 Silver Cardoza [facility] [place] ALBUMIN LEVEL 2021-12-08 22:50:00 Silver Cardoza [facility] ALKALINE PHOSPHATASE 2021-12-08 22:50:00 Silver Cardoza [facility] ALANINE AMINOTRANSFERASE 2021-12-08 22:50:00 Silver Card[facility] ASPARTATE AMINOTRANSFERASE 2021-12-08 22:50:00 Silver Cardoza [facility] TOTAL PROTEIN 2021-12-08 22:50:00 Silver Cardoza [facility] FRACTIONATED BILIRUBIN 2021-12-08 22:50:00 Silver Cardoza [facility] Results CBC 2021-12-08 22:50:00 Silver Cardoza [facility] MANUAL DIFFERENTIAL 2021-12-08 22:50:00 Silver Cardoza [facility] [place] HEPATITIS B CORE TOTAL 2021-12-08 22:50:00 Silver Cardoza [facility] ANTIBODY [facility] HEPATITIS B SURFACE AG 2021-12-08 22:50:00 Silver Cardoza [facility] W/[facility] TMP HCVAB INTERP 2021-12-08 22:50:00 Silver Cardoza [facility] OSI INTERVENTIONAL 2021-11-24 19:13:00 Silver Cardoza [facility] O[facility] CHEST 2021-11-23 19:12:00 Silver Cardoza [facility] OSI CHEST 2021-11-22 19:12:00 Silver Cardoza [facility] Plan of Care Planned Activity Planned Date Details Comments Source Future Scheduled 2022-03-19 COVID-19 Vaccination [facility] Test 09:43:03 (3 - Pfizer risk MD Roney Cancer series) [code = Center COVID-19 Vaccination (3 - Pfizer risk series)] Encounters Start End Encounter Admission Attending Care Care Encounter Source Date/Time Date/Time Type Type Clinicians Facility Department ID 2021-11-27 Outpatient SUJIT FOSTER MDA [id number] 09:56:54 PROVIDER Víctor casey 2022-03-19 2022-03-19 Orders Sloan 1.2.840.1 [id number] Univers 00:00:00 00:00:00 Only Emily 58177.1.1 ity of [place] 3.412.2.7 [place] .3.168367 .8 [facility] 2022-03-18 2022-03-18 Outpatient CHIKA CARDOZA MDA MDA [id number] 14:12:13 14:12:13 SILVER casey 2022-03-17 2022-03-17 [facility] 1.2.840.1 [id number] [facility] 14:09:41 23:59:00 Encounter Kirstin [place] 64047.1.1 ity of 3.412.2.7 [place] .3.262252 MD Duvall8 Víctor carmela [facility] 2022-03-17 2022-03-17 Outpatient CHIKA COLE MDA MDA [id number] 14:09:41 23:59:00 WARREN casey 2022-03-17 2022-03-[address]1 [id number] [facility] 13:30:00 14:08:00 Encounter Warren 53078.1.1 it y of 3.412.2.7 [place] .3.087933 MD Duvall8 [facility] 2022-03-17 2022-03-17 Outpatient CHIKA COLE [facility] [id number] 13:30:00 14:08:00 WARREN Víctor [facility] 2022-03-17 2022-03-17 [facility] 1.2.840.1 [id number] [facility] 12:50:00 13:29:00 Encounter Silver Pinon 35536.1.1 i ty of 3.412.2.7 [place] .3.321282 MD Duvall8 [facility] 2022-03-17 2022-03-17 Outpatient SONY [facility] [id number] 12:50:00 13:29:00 SILVER casey 2022-03-17 2022-03-17 Documentat Raphael, 1.2.840.1 [id number] Univers 00:00:00 00:00:00 ion Ruth 84866.1.1 ity of 3.412.2.7 [place] .3.501020 MD Polo [facility] 2022-03-17 2022-03-17 Travel 1.2.840.1 1.2.673.162 [id number] Univers 00:00:00 00:00:00 25212.1.1 350.1.13.41 ity of 3.412.2.7 [place].3.698 [place] .3.529220 084.8 MD Polo [facility] 2022-03-16 2022-03-16 [facility] 1.2.840.1 [id number] [facility] 12:49:09 23:59:00 Encounter Silver Pinon 09281.1.1 i ty of 3.412.2.7 [place] .3.424538 MD Polo [facility] 2022-03-16 2022-03-16 Outpatient SONY [facility] [id number] 12:49:09 23:59:00 SILVER casey 2022-03-16 2022-03-16 Travel 1.2.840.1 1.2.632.846 [id number] [facility] 00:00:00 00:00:00 11490.1.1 350.1.13.41 ity of 3.412.2.7 [place].3.698 [place] .3.982704 084.8 MD Polo [facility] 2022-03-15 2022-03-15 [facility] 1.2.840.1 [id number] [facility] 15:22:37 23:59:00 Encounter Silver Pinon 17875.1.1 i ty of 3.412.2.7 [place] .3.663393 MD Polo [facility] 2022-03-15 2022-03-15 Outpatient CHIKA CARDOZA MDA MDA [id number] 15:22:37 23:59:00 SILVER casey 2022-03-15 2022-03-15 Outpatient CHIKA CARDOZA [facility] [id number] [place] 10:45:23 10:58:42 SILVER casey 2022-03-15 2022-03-15 Silver [place] 1.2.840.1 [id number] [facility] 10:30:00 10:58:42 Tresa Denis 69428.1.1 ity of 3.412.2.7 [place] .3.836437 MD Polo [facility] 2022-03-15 2022-03-15 Travel 1.2.840.1 1.2.028.424 [id number] [facility] 00:00:00 00:00:00 17886.1.1 350.1.13.41 ity of 3.412.2.7 [place]7.3.698 [place] .3.702947 084.8 MD Polo [facility] 2022-03-12 2022-03-12 [facility] 1.2.840.1 [id number] [facility] 12:45:38 23:59:00 Encounter Silver Pinon 81677.1.1 i ty of 3.412.2.7 [place] .3.198765 MD Polo [facility] 2022-03-12 2022-03-12 Outpatient SONY [facility] [id number] 12:45:38 23:59:00 SILVER casey 2022-03-12 2022-03-12 [facility], 1.2.840.1 [id number] [facility] 10:00:00 12:44:00 Encounter Ruth 77748.1.1 it y of 3.412.2.7 [place] .3.235903 MD Duvall8 [facility] 2022-03-12 2022-03-12 Outpatient RAPHAEL [facility] [id number] [place] 10:00:00 12:44:00 RUTH Víctoryolanda casey 2022-03-12 2022-03-12 Travel 1.2.840.1 1.2.651.954 [id number] [facility] 00:00:00 00:00:00 16139.1.1 350.1.13.41 ity of 3.412.2.7 [place]7.3.698 [place] .3.055705 084.8 MD Polo [facility] 2022-03-11 2022-03-11 [facility], 1.2.840.1 [id number] [facility] 14:38:55 23:59:00 Encounter Silver Pinon 73287.1.1 i ty of 3.412.2.7 [place] .3.721822 MD Polo [facility] 2022-03-11 2022-03-11 Outpatient SNOY [facility] [id number] 14:38:55 23:59:00 SILVER casey 2022-03-11 2022-03-11 Travel 1.2.840.1 1.2.770.844 [id number] [facility] 00:00:00 00:00:00 19938.1.1 350.1.13.41 ity of 3.412.2.7 2.[place]7.3.698 [place] .3.486013 084.8 MD Duvall8 [facility] 2022-03-10 2022-03-10 [facility] 1.2.840.1 [id number] Univers 14:45:00 23:59:00 Encounter Silver Pinon 94256.1.1 i ty of 3.412.2.7 [place] .3.653184 .8 Radha casey [facility] 2022-03-10 2022-03-10 Outpatient CHIKA OBREGONJEWEL SUJIT [facility] [id number] 14:45:00 23:59:00 SILVER casey 2022-03-10 2022-03-10 [facility] Charlie Palaciosi 1.2.840.1 [id number] [facility] 11:15:00 15:01:33 [place] 65163.1.1 ity of 3.412.2.7 [place] .3.709767 .8 [facility] 2022-03-10 2022-03-10 Outpatient CHIKA BILL [facility]AC[facility]OSNDI [facility] [id number] 10:14:58 15:01:33 Víctor casey 2022-03-10 2022-03-10 [facility] Bill Palaciosndi 1.2.840.1 [id number] [facility] 09:15:00 14:44:00 Encounter 19971.1.1 it y of 3.412.2.7 [place] .3.590487 .8 Radha casey [facility] 2022-03-10 2022-03-10 Outpatient BILL PALACIOSNDI [facility] MDA [id number] 09:15:00 14:44:00 Víctor casey 2022-03-10 2022-03-10 Office Li Ma 1.2.840.1 [id number] [facility] 08:40:00 09:23:44 Visit 55277.1.1 ity of 3.412.2.7 [place] .3.342415 .8 Radha casey [facility] 2022-03-10 2022-03-10 Outpatient LI BLACK MDA [facility] [id number] 08:35:14 09:23:44 Víctor casey 2022-03-10 2022-03-10 Li Jean Baptiste 1.2.840.1 [id number] Univers 00:00:00 00:00:00 Only 14252.1.1 ity of 3.412.2.7 [place] .3.398995 MD Duvall8 [facility] 2022-03-10 2022-03-10 Orders Faustino, 1.2.840.1 [id number] Univers 00:00:00 00:00:00 Only Niki 91524.1.1 ity [place].7 [place] .3.062523 .8 [facility] 2022-03-10 2022-03-10 Orders Faustino, 1.2.840.1 [id number] Univers 00:00:00 00:00:00 Only Niki 49588.1.1 [place] .3.300391 [place] Duvall8 [facility] 2022-03-10 2022-03-10 Travel 1.2.840.1 1.2.873.509 [id number] Univers 00:00:00 00:00:00 68727.1.1 350.1.13.41 ity of 3.412.2.7 [place]7.3.698 [place] .3.681079 084.8 MD Duvall8 [facility] 2022-03-09 2022-03-09 [facility] 1.2.840.1 [id number] [facility] 09:28:45 23:59:00 Yann Pinon 93135.1.1 i ty of 3.412.2.7 [place] .3.359164 MD Polo [facility] 2022-03-09 2022-03-09 Outpatient CHIKA SONY SUJIT BECKETT [id number] 09:28:45 23:59:00 SILVER casey 2022-03-09 2022-03-09 Outpatient CHIKA OSTJEWEL SUJIT MDA [id number] 14:30:39 14:30:39 SILVER casey 2022-03-09 2022-03-09 Outpatient CHIKA SONY SUJIT MDA [id number] 11:15:59 11:25:50 SILVER casey 2022-03-09 2022-03-09 Nutrition Silver Cardoza. 1.2.840.1 [id number] [facility] 10:30:00 11:25:50 Tresa Denis 59398.1.1 ity of 3.412.2.7 [place] .3.753905 MD Duvall8 [facility] 2022-03-09 2022-03-09 [facility], 1.2.840.1 [id number] [facility] 08:33:53 09:27:00 Encounter Ruth 84847.1.1 it y of 3.412.2.7 [place] .3.760644 MD Duvall8 [facility] 2022-03-09 2022-03-09 Outpatient RAPHAEL [facility] [id number] [place] 08:33:53 09:27:00 RUTH casey 2022-03-09 2022-03-09 Travel 1.2.840.1 1.2.876.798 [id number] [facility] 00:00:00 00:00:00 77049.1.1 350.1.13.41 ity of 3.412.2.7 [place].7.3.698 [place] .3.041509 084.8 MD Polo [facility] 2022-03-08 2022-03-08 [facility] 1.2.840.1 [id number] [facility] 15:07:29 23:59:00 Encounter Silver Pinon 16486.1.1 i ty of 3.412.2.7 [place] .3.455971 MD Duvall8 [facility] 2022-03-08 2022-03-08 Outpatient SONY [facility] [id number] [place] 15:07:29 23:59:00 SILVER casey 2022-03-08 2022-03-08 Travel 1.2.840.1 1.2.336.652 [id number] Univers 00:00:00 00:00:00 63755.1.1 350.1.13.41 ity of 3.412.2.7 2.[place].7.3.698 [place] .3.629552 084.8 .8 [facility] 2022-03-05 2022-03-05 [facility], 1.2.840.1 [id number] [facility] 15:15:00 23:59:00 Encounter Silver Pinon 41480.1.1 i ty of 3.412.2.7 [place] .3.087447 MD Duvall8 [facility] 2022-03-05 2022-03-05 [facility] [id number] [place] 15:15:00 23:59:00 SILVER Víctor [facility] 2022-03-05 2022-03-05 Outpatient [facility] [id number] [place] 13:59:44 14:04:05 SILVER Renee [facility] 2022-03-05 2022-03-05 Travel 1.2.840.1 1.2.680.889 [id number] [facility] 00:00:00 00:00:00 77043.1.1 350.1.13.41 ity of 3.412.2.7 2.[place].7.3.698 [place] .3.251353 084.8 MD Duvall8 [facility] 2022-03-04 2022-03-04 Outpatient SONY [facility] [id number] [place] 15:13:25 23:59:00 SILVER casey 2022-03-04 2022-03-04 [facility], 1.2.840.1 [id number] [facility] 15:13:25 23:59:00 Encounter Silver Pinon 53564.1.1 i ty of 3.412.2.7 [place] .3.558806 MD Polo [facility] 2022-03-04 2022-03-04 Travel 1.2.840.1 1.2.062.761 [id number] [facility] 00:00:00 00:00:00 83477.1.1 350.1.13.41 ity of 3.412.2.7 2.[place].7.3.698 [place] .3.320603 084.8 MD Polo [facility] 2022-03-03 2022-03-03 Outpatient CHARLIE [facility]ACIOSI [facility] [id number] 14:42:54 23:59:00 Víctor [facility] 2022-03-03 2022-03-03 [facility] Evans Palacios 1.2.840.1 [id number] [facility] 14:42:54 23:59:00 Encounter 55704.1.1 it y of 3.412.2.7 [place] .3.840621 MD Polo [facility] 2022-03-03 2022-03-03 [facility] Evans Palacios 1.2.840.1 [id number] [facility] 16:30:00 19:30:00 Aliya Calvo 32337.1.1 ity of 3.412.2.7 [place] .3.409289 MD Polo [facility] 2022-03-03 2022-03-03 Outpatient CHARLIE PALACIOSI [facility] [id number] 16:32:20 16:32:20 Víctor [facility] 2022-03-03 2022-03-03 Outpatient SONY [facility] [id number] 13:10:00 14:41:00 SILVER casey 2022-03-03 2022-03-03 [facility] 1.2.840.1 [id number] [facility] 13:10:00 14:41:00 Yann Pinon 08316.1.1 i ty of 3.412.2.7 [place] .3.624583 MD Polo [facility] 2022-03-03 2022-03-03 Travel 1.2.840.1 1.2.956.349 [id number] [facility] 00:00:00 00:00:00 04097.1.1 350.1.13.41 ity of 3.412.2.7 2.[place].7.3.698 [place] .3.768297 [id number] MD Polo [facility] 2022-03-03 2022-03-03 Orders Demarcus 1.2.840.1 [id number] Univers 00:00:00 00:00:00 Only Erlin 92965.1.1 ity of [place] 3.412.2.7 [place] .3.205067 MD Duvall8 [facility] 2022-03-02 2022-03-02 Outpatient RAPHAEL [facility] [id number] [place] 09:06:33 23:59:00 RUTH casey 2022-03-02 2022-03-02 [facility], 1.2.840.1 [id number] [facility] 09:06:33 23:59:00 Encounter Ruth 78060.1.1 it y of 3.412.2.7 [place] .3.454686 MD Duvall8 [facility] 2022-03-02 2022-03-02 Outpatient SONY [facility] [id number] [place] 11:06:11 11:22:34 SILVER casey 2022-03-02 2022-03-02 Silver [place] 1.2.840.1 [id number] [facility] 11:00:00 11:22:34 Tresa Denis 21994.1.1 ity of 3.412.2.7 [place] .3.833005 MD Duvall8 [facility] 2022-03-02 2022-03-02 [facility] [id number] 08:56:14 09:05:00 SILVER casey 2022-03-02 2022-03-02 [facility] Sony 1.2.840.1 [id number] [facility] 08:56:14 09:05:00 Encounter Silver Pinon 34706.1.1 i ty of 3.412.2.7 [place] .3.119818 MD Duvall8 [facility] 2022-03-02 2022-03-02 Travel 1.2.840.1 1.2.451.607 [id number] [facility] 00:00:00 00:00:00 31561.1.1 350.1.13.41 ity of 3.412.2.7 2.[place].7.3.698 [place] .3.722073 084.8 .8 [facility] 2022-02-26 2022-02-26 Outpatient CHIKA CARDOZA SUJIT MDA [id number] 09:25:00 23:59:00 SILVER casey 2022-02-26 2022-02-26 [facility] Sony, 1.2.840.1 [id number] [facility] 09:25:00 23:59:00 Encounter Silver Pinon 10675.1.1 i ty of 3.412.2.7 [place] .3.444989 .8 [facility] 2022-02-26 2022-02-26 Travel 1.2.840.1 1.2.899.336 [id number] [facility] 00:00:00 00:00:00 81971.1.1 350.1.13.41 ity of 3.412.2.7 2.2.7.3.698 [place] .3.312920 084.8 .8 [facility] 2022-02-25 2022-02-25 Outpatient CHIKA [facility] [id number] 10:15:00 23:59:00 RUTH casey 2022-02-25 2022-02-25 [facility], 1.2.840.1 [id number] [facility] 10:15:00 23:59:00 Encounter Ruth 33370.1.1 it y of 3.412.2.7 [place] .3.839523 .8 [facility] 2022-02-24 2022-02-24 Outpatient EVANS VEGA MDA [facility] [id number] [place] 11:20:16 23:59:00 Víctor casey 2022-02-24 2022-02-24 [facility] Evans Palacios 1.2.840.1 [id number] [facility] 11:20:16 23:59:00 Encounter Cheli Alejandra 44419.1.1 ity of 3.412.2.7 [place] .3.702277 .8 [facility] 2022-02-24 2022-02-24 Outpatient CHIKA CARDOZA [facility] MDA [id number] MD 09:30:00 11:19:00 SILVER casey 2022-02-24 2022-02-24 [facility] Sony 1.2.840.1 [id number] [facility] 09:30:00 11:19:00 Encounter Silver Pinon 86822.1.1 i [address] of 3.412.2.7 [place] .3.649728 MD Polo [facility] 2022-02-24 2022-02-24 Outpatient EVANS PALACIOS [facility] MDA [id number] 09:00:51 09:29:00 Víctor casey 2022-02-24 2022-02-24 [facility] Evans Palacios 1.2.840.1 [id number] [facility] 09:00:51 09:29:00 Encounter 54101.1.1 it y of 3.412.2.7 [place] .3.930502 MD Polo [facility] 2022-02-24 2022-02-24 Vitor Chavez 1.2.840.1 [id number] [facility] 00:00:00 00:00:00 Only Jihan 55409.1.1 ity of 3.412.2.7 [place] .3.538474 MD Polo [facility] 2022-02-24 2022-02-24 Li Jean Baptiste 1.2.840.1 [id number] [facility] 00:00:00 00:00:00 Only 45497.1.1 ity of 3.412.2.7 [place] .3.801484 MD Polo [facility] 2022-02-24 2022-02-24 Travel 1.2.840.1 [id number] [id number] [facility] 00:00:00 00:00:00 50279.1.1 350.1.13.41 ity of 3.412.2.7 [place].3.698 [place] 084.8 MD Polo [facility] 2022-02-24 2022-02-24 Orders Magdiel, 1.2.840.1 [id number] Univers 00:00:00 00:00:00 Only Pamela Cordoba 27222.1.1 ity of 3.412.2.7 [place] .3Jadiel853467 MD oPlo [facility] 2022-02-23 2022-02-23 Outpatient CHIKA CARDOZA [facility] SUJIT [id number] 09:35:00 23:59:00 SILVER casey 2022-02-23 2022-02-23 [facility] Sony 1.2.840.1 [id number] [facility] 09:35:00 23:59:00 Encounter Silver Pinon 69188.1.1 i ty of 3.412.2.7 [place] .3Jadiel266819 MD Polo [facility] 2022-02-23 2022-02-23 Outpatient CHIKA CARDOZA [facility] [id number] 10:48:27 11:04:05 SILVER casey 2022-02-23 2022-02-23 Silver [place]. 1.2.840.1 [id number] [facility] 10:45:00 11:04:05 Tresa Denis 51223.1.1 ity of 3.412.2.7 [place] .3Jadiel325875 MD Polo [facility] 2022-02-23 2022-02-23 Outpatient RAPHAEL [facility] [id number] 08:48:46 09:34:00 RUTH casey 2022-02-23 2022-02-23 [facility] 1.2.840.1 [id number] [facility] 08:48:46 09:34:00 Yann Charles 69597.1.1 it y of 3.412.2.7 [place] .3.057638 MD Polo [facility] carmela [facility] 2022-02-23 2022-02-23 Travel 1.2.840.1 1.2.107.677 4340 [id number] [facility] 00:00:00 00:00:00 53227.1.1 350.1.13.41 ity of 3.412.2.7 [place]7.3.698 [place] .3.408299 084.8 .8 [facility] 2022-02-22 2022-02-22 Outpatient CHIKA CARDOZA MDA [facility] [id number] MD 10:00:00 23:59:00 SILVER casey 2022-02-22 2022-02-22 [facility], 1.2.840.1 [id number] [facility] 10:00:00 23:59:00 Encounter Silver Pinon 06678.1.1 i ty of 3.412.2.7 [place] .3.892961 MD Duvall8 [facility] 2022-02-22 2022-02-22 Outpatient CHIKA CARDOZA SUJIT [facility] [id number] MD 13:07:52 13:07:52 SILVER casey 2022-02-22 2022-02-22 Orders Magdiel, 1.2.840.1 [id number] Univers 00:00:00 00:00:00 Only Pamela Cordoba 09019.1.1 ity of 3.412.2.7 [place] .3.469006 MD Duvall8 [facility] 2022-02-22 2022-02-22 Orders Demarcus 1.2.840.1 [id number] Univers 00:00:00 00:00:00 Only Erlin 03758.1.1 ity of Matthew 3.412.2.7 [place] .3.477858 MD Duvall8 [facility] 2022-02-19 2022-02-19 Outpatient SONY SUJIT [facility] [id number] MD 09:45:40 23:59:00 SILVER casey 2022-02-19 2022-02-19 [facility], 1.2.840.1 [id number] [facility] 09:45:40 23:59:00 Encounter Silver Pinon 73835.1.1 i ty of 3.412.2.7 [place] .3.851146 MD Duvall8 [facility] 2022-02-19 2022-02-19 Outpatient CHIKA SANCHEZ [facility] [id number] 14:47:44 15:04:18 RASHID ABDALLA 2022-02-19 2022-02-19 Travel 1.2.840.1 1.2.015.191 8976 [id number] Univers 00:00:00 00:00:00 13666.1.1 350.1.13.41 ity of 3.412.2.7 2.[place]7.3.698 [place] .3.338861 084.8 .8 [facility] 2022-02-18 2022-02-18 Outpatient CHIKA CARDOZA [facility] MDA [id number] 09:52:57 23:59:00 SILVER casey 2022-02-18 2022-02-18 [facility] Sony 1.2.840.1 [id number] [facility] 09:52:57 23:59:00 Encounter Silver Pinon 85367.1.1 i ty of 3.412.2.7 [place] .3.419166 .8 [facility] 2022-02-18 2022-02-18 Travel 1.2.840.1 1.2.315.343 2594 [id number] Univers 00:00:00 00:00:00 83300.1.1 350.1.13.41 ity of 3.412.2.7 2.[place]7.3.698 [place] .3.282150 084.8 MD Polo [facility] 2022-02-17 2022-02-17 Outpatient EVANS VEGA [facility] MDA [id number] 10:20:43 23:59:00 Víctor casey 2022-02-17 2022-02-17 [facility] Evans Palacios 1.2.840.1 [id number] [facility] 10:20:43 23:59:00 Encounter 00676.1.1 it y of 3.412.2.7 [place] .3.063788 MD Duvall8 [facility] 2022-02-17 2022-02-17 [facility] Evans Palacios 1.2.840.1 [id number] [facility] 15:00:00 18:11:22 Comple, Gucci 21353.1.1 ity of 3.412.2.7 [place] .3.290404 MD Polo [facility] 2022-02-17 2022-02-17 Office Li Ma 1.2.840.1 [id number] [facility] 12:00:00 13:41:43 Visit 46978.1.1 ity of 3.412.2.7 [place] .3.963610 MD Polo [facility] 2022-02-17 2022-02-17 Outpatient CHIKA CARDOZA MDA MDA [id number] 09:32:53 10:19:00 SILVER casey 2022-02-17 2022-02-17 [facility], 1.2.840.1 [id number] Univers 09:32:53 10:19:00 Encounter Silver Pinon 47181.1.1 i ty of 3.412.2.7 [place] .3.779081 MD Polo [facility] 2022-02-17 2022-02-17 Orders Kelsey, 1.2.840.1 [id number] Univers 00:00:00 00:00:00 Only Warren 76250.1.1 ity of 3.412.2.7 [place] .3.711653 MD Polo [facility] 2022-02-17 2022-02-17 Travel 1.2.840.1 1.2.759.274 5365 [id number] Univers 00:00:00 00:00:00 33381.1.1 350.1.13.41 ity of 3.412.2.7 2.2[place]7.3.698 [place] .3.981896 084.8 MD Polo [facility] 2022-02-16 2022-02-16 Outpatient CHIKA CARDOZA MDA MDA [id number] 09:45:00 23:59:00 SILVER casey 2022-02-16 [facility] [id number] Univers 09:45:00 23:59:00 Encounter Silver Pinon 50073.1.1 i ty of 3.412.2.7 [place] .3.545877 MD Polo [facility] 2022-02-16 2022-02-16 Nutrition Silver Cardoza 1.2.840.1 [id number] Univers 10:30:00 11:03:06 Tresa Denis 62760.1.1 ity of 3.412.2.7 [place] .3.617941 MD Polo [facility] 2022-02-16 2022-02-16 Outpatient RAPHAEL, [facility] [id number] 08:59:08 09:44:00 RUTH goodman 2022-02-16 2022-02-16 [facility] [employer], 1.2.840.1 [id number] Univers 08:59:08 09:44:00 Encounter Ruth 80037.1.1 it y of 3.412.2.7 [place] .3.617889 MD Polo [facility] 2022-02-16 2022-02-16 Orders Demarcus 1.2.840.1 [id number] Univers 00:00:00 00:00:00 Only Erlin 89823.1.1 ity of Matthew 3.412.2.7 [place] .3.537392 MD Polo [facility] 2022-02-16 2022-02-16 Travel 1.2.840.1 1.2.350.773 3087 [id number] Univers 00:00:00 00:00:00 12744.1.1 350.1.13.41 ity of 3.412.2.7 2.2.7.3.698 [place] .3.651916 084.8 MD Polo [facility] 2022-02-15 2022-02-15 [facility] Sony 1.2.840.1 [id number] [id number] Univers 09:21:43 23:59:00 Encounter Silver Pinon 07147.1.1 i ty of 3.412.2.7 [place] .3.053034 MD Polo [facility] 2022-02-15 2022-02-15 Orders Kelsey, 1.2.840.1 [id number] Univers 00:00:00 00:00:00 Only Warren 44983.1.1 ity of 3.412.2.7 [place] .3.960851 MD Duvall8 [facility] 2022-02-15 2022-02-15 Travel 1.2.840.1 1.2.216.940 1222 [id number] Univers 00:00:00 00:00:00 30266.1.1 350.1.13.41 ity of 3.412.2.7 2.2.7.3.698 [place] .3.099952 084.8 MD Polo [facility] 2022-02-12 2022-02-12 Emergency Maria L, 1.2.840.1 [id number] [id number] Univers 10:10:00 12:34:00 Besim 76639.1.1 ity of 3.412.2.7 [place] .3.391219 MD Polo [facility] 2022-02-12 2022-02-12 [facility] 1.2.840.1 [id number] [id number] Univers 09:20:00 10:09:00 Encounter Silver Pinon 66927.1.1 i ty of 3.412.2.7 [place] .3.846989 MD Polo [facility] 2022-02-12 2022-02-12 [facility] 1.2.840.1 [id number] Univers 08:47:27 09:19:00 Encounter Silver Pinon 22880.1.1 i ty of 3.412.2.7 [place] .3.316088 MD Polo [facility] 2022-02-12 2022-02-12 Travel 1.2.840.1 1.2.710.941 0355 [id number] Univers 00:00:00 00:00:00 03531.1.1 350.1.13.41 ity of 3.412.2.7 2.2.7.3.698 [place] .3.357993 084.8 MD Polo [facility] 2022-02-12 2022-02-12 Telephone Fer, 1.2.840.1 [id number] [id number] Univers 00:00:00 00:00:00 Erin Cordoba 46409.1.1 ity of 3.412.2.7 [place] .3.042089 MD Polo [facility] 2022-02-11 2022-02-11 [facility] 1.2.840.1 [id number] Univers 09:50:00 23:59:00 Encounter Silver Pinon 95242.1.1 i ty of 3.412.2.7 [place] .3.257230 MD Polo [facility] 2022-02-11 2022-02-11 Travel 1.2.840.1 1.2.419.433 0309 [id number] Univers 00:00:00 00:00:00 68343.1.1 350.1.13.41 ity of 3.412.2.7 2.2.7.3.698 [place] .3.918864 084.8 MD Polo [facility] 2022-02-10 2022-02-10 [facility] Roney Tresa Mika 1.2.840.1 [id number] Univers 13:03:26 23:59:00 Encounter Edwardo So 00261.1.1 ity of 3.412.2.7 [place] .3.550385 MD Polo [facility] 2022-02-10 2022-02-10 [facility] Evans Palacios 1.2.840.1 [id number] Univers 10:38:23 13:02:00 Encounter 54115.1.1 it y of 3.412.2.7 [place] .3.807851 MD Polo [facility] 2022-02-10 2022-02-10 [facility] 1.2.840.1 [id number] Univers 09:40:00 10:37:00 Encounter Silver Pinon 91356.1.1 i ty of 3.412.2.7 [place] .3.793130 MD Polo [facility] 2022-02-10 2022-02-10 [facility] Roney, 1.2.840.1 [id number] [id number] Univers 00:00:00 00:00:00 Only Tresa Mika 56728.1.1 ity of 3.412.2.7 [place] .3.955440 MD Polo [facility] 2022-02-10 2022-02-10 Travel 1.2.840.1 1.2.251.689 4244 [id number] Univers 00:00:00 00:00:00 37088.1.1 350.1.13.41 ity of 3.412.2.7 2.2.7.3.698 [place] .3.363583 084.8 MD Polo [facility] 2022-02-09 2022-02-09 [facility], 1.2.840.1 [id number] Univers 09:25:47 23:59:00 Encounter Silver Pinon 17800.1.1 i ty of 3.412.2.7 [place] .3.281480 MD Polo [facility] 2022-02-09 2022-02-09 [facility], 1.2.840.1 [id number] [id number] Univers 09:00:58 09:24:00 Encounter Ruth 52884.1.1 it y of 3.412.2.7 [place] .3.948437 MD Polo [facility] 2022-02-09 2022-02-09 [facility] Lisa, 1.2.840.1 [id number] Univers 00:00:00 00:00:00 Only Emily 36198.1.1 ity of [place] 3.412.2.7 [place] .3.766575 MD Polo [facility] 2022-02-09 2022-02-09 Travel 1.2.840.1 1.2.362.057 5725 [id number] Univers 00:00:00 00:00:00 78571.1.1 350.1.13.41 ity of 3.412.2.7 2.2.7.3.698 [place] .3.917817 084.8 MD Polo [facility] 2022-02-08 2022-02-08 [facility] 1.2.840.1 [id number] [facility] 13:04:18 23:59:00 Encounter Silver Pinon 82057.1.1 i ty of 3.412.2.7 [place] .3.153944 MD Polo [facility] 2022-02-08 2022-02-08 [facility] Silver Cardoza 1.2.840.1 07942 4223 [id number] Univers 11:00:00 11:21:47 Tresa Denis 24833.1.1 ity of 3.412.2.7 [place] .3.908849 MD Polo [facility] 2022-02-08 2022-02-08 Travel 1.2.840.1 1.2.818.221 3362 [id number] Univers 00:00:00 00:00:00 03685.1.1 350.1.13.41 ity of 3.412.2.7 2.2.7.3.698 [place] .3.924706 084.8 MD Polo [facility] 2022-02-08 2022-02-08 Evans Espinosa 1.2.840.1 [id number] [id number] Univers 00:00:00 00:00:00 Only 08694.1.1 ity of 3.412.2.7 [place] .3.103870 MD Polo [facility] 2022-02-05 2022-02-05 [facility] 1.2.840.1 [id number] 05300 Univers 10:51:03 23:59:00 Encounter Silver Pinon 68899.1.1 i ty of 3.412.2.7 [place] .3.990900 MD Polo [facility] 2022-02-05 2022-02-05 Vitor Sim 1.2.840.1 [id number] 1093 [id number] Univers 00:00:00 00:00:00 Only Tresa Mika 34178.1.1 ity of 3.412.2.7 [place] .3.395326 MD Polo [facility] 2022-02-05 2022-02-05 Orders Greta Gould 1.2.840.1 [id number] Univers 00:00:00 00:00:00 Only 94184.1.1 ity of 3.412.2.7 [place] .3.985032 MD Polo [facility] 2022-02-05 2022-02-05 Orders Cherrie, 1.2.840.1 [id number] Univers 00:00:00 00:00:00 Only Michaela León 09310.1.1 it y of 3.412.2.7 [place] .3.126326 MD Polo [facility] 2022-02-05 2022-02-05 Travel 1.2.840.1 1.2.292.231 5168 [id number] Univers 00:00:00 00:00:00 61431.1.1 350.1.13.41 ity of 3.412.2.7 2.2.7.3.698 [place] .3.728888 084.8 MD Polo [facility] 2022-02-05 2022-02-05 Orders Ellington, 1.2.840.1 [id number] Univers 00:00:00 00:00:00 Only Xin Waslh 56665.1.1 i ty of 3.412.2.7 [place] .3.177388 MD Polo [facility] 2022-02-04 2022-02-04 [facility] Sony, 1.2.840.1 [id number] [id number] Univers 10:49:36 23:59:00 Yann Pinon 65385.1.1 i ty of 3.412.2.7 [place] .3.057817 MD Polo [facility] 2022-02-04 2022-02-04 Travel 1.2.840.1 1.2.521.812 1005 [id number] Univers 00:00:00 00:00:00 85942.1.1 350.1.13.41 ity of 3.412.2.7 2.2.7.3.698 [place] .3.294129 084.8 MD Polo [facility] 2022-02-03 2022-02-03 [facility] 1.2.840.1 [id number] [facility] 10:15:00 23:59:00 Encounter Silver Pinon 69327.1.1 i ty of 3.412.2.7 [place] .3.011747 MD Polo [facility] 2022-02-03 2022-02-03 Infusion Warren Cole 1.2.840.1 [id number] [facility] 12:15:00 17:45:34 Alka Matos 17550.1.1 ity of 3.412.2.7 [place] .3.233749 MD Polo [facility] 2022-02-03 2022-02-03 [facility] Kelsey 1.2.840.1 [id number] [facility] 09:45:00 10:14:00 Encounter Warren 67798.1.1 it y of 3.412.2.7 [place] .3.167443 MD Polo [facility] 2022-02-03 2022-02-03 Travel 1.2.840.1 1.2.024.163 6444 [id number] Univers 00:00:00 00:00:00 98898.1.1 350.1.13.41 ity of 3.412.2.7 2.2.7.3.698 [place] .3.856648 084.8 MD Polo [facility] 2022-02-02 2022-02-02 [facility] 1.2.840.1 [id number] [id number] [facility] 10:50:00 23:59:00 Encounter Silver Pinon 68032.1.1 i ty of 3.412.2.7 [place] .3.526030 MD Polo [facility] 2022-02-02 2022-02-02 [facility], 1.2.840.1 [id number] Univers 08:58:31 09:51:00 Encounter Ruth 36521.1.1 it y of 3.412.2.7 [place] .3.853135 MD Polo [facility] 2022-02-02 2022-02-02 [facility] Magdiel, 1.2.840.1 [id number] Univers 00:00:00 00:00:00 Only Pamela Beryl 38626.1.1 ity of 3.412.2.7 [place] .3.943360 MD Polo [facility] 2022-02-02 2022-02-02 Travel 1.2.840.1 1.2.057.484 3474 [id number] Univers 00:00:00 00:00:00 46823.1.1 350.1.13.41 ity of 3.412.2.7 2.2.7.3.698 [place] .3.431355 08Mira Polo [facility] 2022-02-01 2022-02-01 [facility] Sony, 1.2.840.1 [id number] [id number] Univers 08:39:19 23:59:00 Encounter Silver Pinon 41806.1.1 i ty of 3.412.2.7 [place] .3Jadiel704671 MD Polo [facility] 2022-02-01 2022-02-01 Travel 1.2.840.1 1.2.842.082 7628 025536 Univers 00:00:00 00:00:00 79640.1.1 350.1.13.41 ity of 3.412.2.7 2.2.7.3.698 [place] .3.071417 084Christ Polo [facility] 2022-01-29 2022-01-29 [facility], 1.2.840.1 [id number] 1093 [id number] Univers 11:30:00 14:00:00 Procedure Warren 66756.1.1 it y of 3.412.2.7 [place] .3Jadiel833987 MD .8 [facility] 2022-01-29 2022-01-29 Travel 1.2.840.1 1.2.097.112 2168 [id number] Univers 00:00:00 00:00:00 31045.1.1 350.1.13.41 ity of 3.412.2.7 2.2.7.3.698 [place] .3.406219 084.8 MD Polo [facility] 2022-01-28 2022-01-28 Clinical Silver Cardoza 1.2.840.1 [id number] Univers 11:00:00 11:02:38 Support Phyllis Mcnamara 36652.1.1 ity of 3.412.2.7 [place] .3.951736 MD Polo [facility] 2022-01-28 2022-01-28 Travel 1.2.840.1 1.2.376.846 6288 [id number] Univers 00:00:00 00:00:00 65858.1.1 350.1.13.41 ity of 3.412.2.7 2.2.7.3.698 [place] .3.944909 084.Sindy Polo [facility] 2022-01-27 2022-01-27 Vitor Jolly, 1.2.840.1 [id number] 3638 Univers 00:00:00 00:00:00 Only Freddie 71465.1.1 ity of 3.412.2.7 [place] .3.626128 MD Polo [facility] 2022-01-27 2022-01-27 Documentat Raphael, 1.2.840.1 [id number] Univers 00:00:00 00:00:00 ion Ruth 77830.1.1 ity of 3.412.2.7 [place] .3.288848 MD Polo [facility] 2022-01-27 2022-01-27 Vitor Cole 1.2.840.1 [id number] Univers 00:00:00 00:00:00 Only Warren 79204.1.1 ity of 3.412.2.7 [place] .3.270861 MD Polo [facility] 2022-01-26 2022-01-26 [facility], 1.2.840.1 [id number] [id number] [id number] Univers 06:00:00 23:59:00 Encounter Silver Pinon 46360.1.1 i ty of 3.412.2.7 [place] .3.668716 MD Duvall8 [facility] 2022-01-20 2022-01-20 [facility] 1.2.840.1 [id number] Univers 00:00:00 00:00:00 Only Warren 86236.1.1 ity of 3.412.2.7 [place] .3.947956 MD Polo [facility] 2022-01-11 2022-01-11 [facility], 1.2.840.1 [id number] Univers 12:00:00 23:59:00 Encounter Ruth 84886.1.1 it y of 3.412.2.7 [place] .3.574306 MD Duvall8 [facility] 2022-01-11 2022-01-11 [facility], 1.2.840.1 [id number] [id number] Univers 09:30:00 09:30:00 Encounter Ruth 52353.1.1 it y of 3.412.2.7 [place] .3.328671 MD Duvall8 [facility] 2022-01-11 2022-01-11 [facility] 1.2.840.1 [id number] Univers 09:30:00 09:30:00 Encounter Emily 65006.1.1 it y of [place] 3.412.2.7 [place] .3.082946 MD Duvall8 [facility] 2022-01-11 2022-01-11 [facility], 1.2.840.1 [id number] Univers 09:00:00 09:29:00 Encounter Ruth 50283.1.1 it y of 3.412.2.7 [place] .3.140317 MD Polo [facility] 2022-01-11 2022-01-11 [facility], 1.2.840.1 [id number] Univers 07:50:59 08:59:00 Encounter Ruth 27707.1.1 it y of 3.412.2.7 [place] .3.926561 MD Duvall8 [facility] 2022-01-11 2022-01-11 Travel 1.2.840.1 1.2.092.399 2385 [id number] Univers 00:00:00 00:00:00 50873.1.1 350.1.13.41 ity of 3.412.2.7 2.2.7.3.698 [place] .3.863811 084.8 MD Polo [facility] 2022-01-08 2022-01-08 Telephone Taina, 1.2.840.1 [id number] Univers 00:00:00 00:00:00 Michael Cordoba 84833.1.1 ity of 3.412.2.7 [place] .3.292050 MD Polo [facility] 2022-01-08 2022-01-08 Documentat Steve, 1.2.840.1 [id number] Univers 00:00:00 00:00:00 hemant Quinonesgaurav León 78339.1.1 ity of 3.412.2.7 [place] .3.721164 MD Polo [facility] 2022-01-07 2022-01-07 [facility], 1.2.840.1 [id number] Univers 15:00:00 23:59:00 Encounter Ruth 09824.1.1 it y of 3.412.2.7 [place] .3.288150 MD Duvall8 [facility] 2022-01-07 2022-01-07 Travel 1.2.840.1 1.2.129.611 3691 [id number] Univers 00:00:00 00:00:00 88662.1.1 350.1.13.41 ity of 3.412.2.7 2.2.7.3.698 [place] .3.469533 084.8 MD Duvall8 [facility] [place] 2022-01-06 2022-01-06 [facility] Kelsey, 1.2.840.1 [id number] [id number] Univers 10:30:29 23:59:00 Encounter Warren 57792.1.1 it y of 3.412.2.7 [place] .3.578460 .8 [facility] 2022-01-06 2022-01-06 [facility] Warren Cole 1.2.840.1 [id number] Univers 16:30:00 18:31:58 Estella Connolly 41549.1.1 ity of 3.412.2.7 [place] .3.604657 MD Duvall8 [facility] 2022-01-06 2022-01-06 Office Li Ma 1.2.840.1 [id number] Univers 12:40:00 13:54:37 Visit 47506.1.1 ity of 3.412.2.7 [place] .3.954266 .8 [facility] 2022-01-06 2022-01-06 [facility], 1.2.840.1 [id number] Univers 09:11:15 10:29:00 Encounter Ruth 25460.1.1 it y of 3.412.2.7 [place] .3.375590 MD Duvall8 [facility] 2022-01-06 2022-01-06 Orders Sloan, 1.2.840.1 [id number] Univers 00:00:00 00:00:00 Only Emily 43958.1.1 ity of [place] 3.412.2.7 [place] .3.500345 MD Duvall8 [facility] 2022-01-06 2022-01-06 Orders Magdiel 1.2.840.1 [id number] Univers 00:00:00 00:00:00 Only Pamela Cordoba 42830.1.1 ity of 3.412.2.7 [place] .3.357541 MD Polo [facility] 2022-01-06 2022-01-06 Documentat Magdiel, 1.2.840.1 [id number] Univers 00:00:00 00:00:00 ion Pamela C 80943.1.1 ity of 3.412.2.7 [place] .3.086102 MD Duvall8 [facility] 2022-01-06 2022-01-06 Vitor Cole, 1.2.840.1 [id number] Univers 00:00:00 00:00:00 Only Warren 68870.1.1 ity of 3.412.2.7 [place] .3.350636 MD Duvall8 [facility] 2022-01-06 2022-01-06 Travel 1.2.840.1 1.2.262.264 [id number] Univers 00:00:00 00:00:00 33459.1.1 350.1.13.41 ity of 3.412.2.7 [place].3.698 [place] .3.580243 084.8 MD Duvall8 [facility] 2022-01-05 2022-01-05 Vitor Veloz, 1.2.840.1 [id number] Univers 00:00:00 00:00:00 Only Pamela C 13313.1.1 ity of 3.412.2.7 [place] .3.761039 MD Duvall8 [facility] 2022-01-04 2022-01-04 Vitor Veloz 1.2.840.1 [id number] Univers 00:00:00 00:00:00 Only Pamela C 78305.1.1 ity of 3.412.2.7 [place] .3.309162 MD Duvall8 [facility] 2022-01-01 2022-01-01 Vitor Tracy 1.2.840.1 [id number] Univers 00:00:00 00:00:00 Only Kern, 15421.1.1 ity of [place] 3.412.2.7 [place] .3.064684 MD Polo [facility] 2021-12-31 2021-12-31 Vitor Tracy 1.2.840.1 [id number] Univers 00:00:00 00:00:00 Only Erlin 68927.1.1 ity of Matthew 3.412.2.7 [place] .3.354960 MD Duvall8 [facility] 2021-12-30 2021-12-30 Li Jean Baptiste 1.2.840.1 [id number] Univers 00:00:00 00:00:00 Only 61061.1.1 ity of 3.412.2.7 [place] .3.035849 MD Duvall8 [facility] 2021-12-29 2021[facility]29 [facility]1 [id number] Univers 10:15:36 23:59:00 Encounter Ruth 28993.1.1 it y of 3.412.2.7 [place] .3.410176 MD Duvall8 [facility] 2021-12-29 2021-12-29 [facility] 1.2.840.1 [id number] Univers 09:28:35 10:14:00 Encounter Ruth 35546.1.1 it y of 3.412.2.7 [place] .3.973492 MD Duvall8 [facility] 2021-12-29 2021-12-29 Documentat Mars, 1.2.840.1 [id number] Univers 00:00:00 00:00:00 ion Ruth 33941.1.1 ity of 3.412.2.7 [place] .3.702813 MD Duvall8 [facility] 2021-12-29 2021-12-29 Vitor Cole 1.2.840.1 [id number] Univers 00:00:00 00:00:00 Only Warren 15256.1.1 ity of 3.412.2.7 [place] .3.848442 MD Duvall8 [facility] 2021-12-29 2021-12-29 Documentat Demarcus 1.2.840.1 [id number] Univers 00:00:00 00:00:00 ion Kern, 42791.1.1 ity of Matthew 3.412.2.7 [place] .3.974076 MD Polo [facility] 2021-12-29 2021-12-29 Documentat Rex`Mars, 1.2.840.1 [id number] Univers 00:00:00 00:00:00 ion Ruth 38793.1.1 ity of 3.412.2.7 [place] .3.821334 MD Polo [facility] 2021-12-29 2021-12-29 Vitor Lisa, 1.2.840.1 [id number] Univers 00:00:00 00:00:00 Only Emily 56935.1.1 ity of [place] 3.412.2.7 [place] .3.612394 MD Polo [facility] 2021-12-29 2021-12-29 Travel 1.2.840.1 1.2.644.674 [id number] Univers 00:00:00 00:00:00 53643.1.1 350.1.13.41 ity of 3.412.2.7 [place].3.698 [place] .3.473369 084.8 MD Polo [facility] 2021-12-28 2021-12-28 [facility] Margy, 1.2.840.1 [id number] Univers 12:32:00 23:59:00 Encounter Adan 43564.1.1 it y of [place] 3.412.2.7 [place] .3.572498 MD Polo [facility] 2021-12-25 2021-12-25 Vitor Schultz, 1.2.840.1 [id number] Univers 00:00:00 00:00:00 Only Alexia Ji 16966.1.1 ity of 3.412.2.7 [place] .3.358121 MD Polo [facility] 2021-12-25 2021-12-25 Orders Raphael, 1.2.840.1 [id number] Univers 00:00:00 00:00:00 Only Ruth 94384.1.1 ity of 3.412.2.7 [place] .3.866619 MD Polo [facility] 2021-12-25 2021-12-25 Orders Raphael 1.2.840.1 [id number] Univers 00:00:00 00:00:00 Only Ruth 83849.1.1 ity of 3.412.2.7 [place] .3.649519 MD Polo [facility] 2021-12-24 2021-12-24 Office Deven Palma.2.840.1 [id number] Univers 12:40:00 13:12:41 Visit Carter Ayers.1.1 ity of 3.412.2.7 [place] .3.132856 MD Polo [facility] 2021-12-24 2021-12-24 Outpatient CHIKA PALMA MDA [facility] [id number] 12:04:39 13:12:41 CARTER casey 2021-12-24 2021-12-24 Travel 1.2.840.1 1.2.647.286 [id number] Univers 00:00:00 00:00:00 01319.1.1 350.1.13.41 ity of 3.412.2.7 [place].698 [place] .3.0715[place] 084.8 MD [facility] 2021-12-23 2021-12-23 [facility] Chuy Srinivasan 1.2.840.1 [id number] Univers 14:01:06 23:59:00 Encounter Ruth Bravo 70491.1.1 ity of 3.412.2.7 [place] .3.973272 MD [facility] 2021-12-23 2021-12-23 [facility] Zarina 1.2.840.1 [id number] Univers 15:30:00 18:00:00 Procedure Chuy Vallecillo 05848.1.1 ity of [place].412.2.7 [place] .3.619424 .8 [facility] 2021-12-23 2021-12-23 Outpatient CHIKA ZARINA, [facility] SUJIT [id number] 15:18:26 15:18:26 CHUY Víctor rex casey 2021-12-23 2021-12-23 Outpatient ZARINA [facility] [id number] 14:01:06 14:01:06 CHUY Víctoryolanda casey 2021-12-23 2021-12-23 [facility] Kelsey, 1.2.840.1 [id number] [facility] 12:45:00 14:00:00 Encounter Warren 86517.1.1 it y of 3.412.2.7 [place] .3.111697 .8 [facility] 2021-12-23 2021-12-23 Outpatient CHIKA COLE [facility] [id number] 12:45:00 12:45:00 WARREN casey 2021-12-23 2021-12-23 Office Li Ma 1.2.840.1 [id number] [facility] 10:20:00 11:51:22 Visit 46576.1.1 ity of 3.412.2.7 [place] .3.853208 .Sindy [facility] 2021-12-23 2021-12-23 Outpatient LI BLACK [facility] [id number] [place] 09:56:05 11:51:22 Víctoryolanda casey 2021-12-23 2021-12-23 Orders Antoine, 1.2.840.1 [id number] Univers 00:00:00 00:00:00 Only Alexia Ji 69910.1.1 ity of 3.412.2.7 [place] .3.975662 .8 [facility] 2021-12-23 2021-12-23 Orders Kelsey, 1.2.840.1 [id number] Univers 00:00:00 00:00:00 Only Warren 88846.1.1 ity of 3.412.2.7 [place] .3.035462 MD [place]8 [facility] 2021-12-23 2021-12-23 Travel 1.2.840.1 1.2.426.951 [id number] Univers 00:00:00 00:00:00 40283.1.1 350.1.13.41 ity of 3.412.2.7 [place]7.3.698 [place] .3.774185 084.8 MD [place]8 [facility] 2021-12-22 2021-12-22 Ancillary Zarina, 1.2.840.1 [id number] Univers 19:15:00 21:00:00 Chris Vallecillo 19583.1.1 ity of 3.412.2.7 [place] .3.225675 MD [facility] 2021-12-22 2021-12-22 Outpatient EL ZARINA, MDA MDA [id number] 18:55:12 18:55:12 CHUY casey 2021-12-22 2021-12-22 Travel 1.2.840.1 1.2.060.133 [id number] Univers 00:00:00 00:00:00 59894.1.1 350.1.13.41 ity of 3.412.2.7 [place]7.3.698 [place] .3.284887 084.8 MD [facility] 2021-12-17 2021-12-17 Outpatient CHIKA CARDOZA MDA MDA [id number] 13:27:51 13:27:51 SILVER casey 2021-12-17 2021-12-17 Outpatient CHIKA CARDOZA MDA MDA [id number] 13:27:44 13:27:44 SILVER casey 2021-12-17 2021-12-17 Telephone [place], 1.2.840.1 [id number] Univers 00:00:00 00:00:00 Baldemar 76101.1.1 ity of 3.412.2.7 [place] .3.979224 MD [facility] 2021-12-15 2021-12-15 Outpatient EL ZARINA [facility] Med [id number] MD 09:07:00 16:35:00 CHUY goodman carmela 2021-12-15 2021-12-15 Hospital [facility], 1.2.840.1 [id number] Univers 09:07:00 16:35:00 Encounter Chuy Vallecillo 20987.1.1 ity of 3.412.2.7 [place] .3.930551 MD [place]8 [facility] 2021-12-15 2021-12-15 Anesthesia Soto Taveras 1.2.840.1 [id number] Univers 14:10:00 15:24:00 Event Lui Mendoza 11389.1.1 it y of 3.412.2.7 [place] .3.751585 MD [place]8 [facility] 2021-12-15 2021-12-15 Surgery [facility], 1.2.840.1 [id number] Univers 10:00:00 11:30:00 Chuy Vallecillo 79561.1.1 it y of 3.412.2.7 [place] .3.337725 MD [place]8 [facility] 2021-12-15 2021-12-15 Orders Caleb, 1.2.840.1 [id number] Univers 00:00:00 00:00:00 Only Celia 02689.1.1 ity of 3.412.2.7 [place] .3.372523 MD Duvall8 [facility] 2021-12-15 2021-12-15 Orders Rigoberto, 1.2.840.1 [id number] Univers 00:00:00 00:00:00 Only Baldemar 74131.1.1 ity of 3.412.2.7 [place] .3Jadiel852882 MD Duvall8 [facility] 2021-12-15 2021-12-15 Travel 1.2.840.1 1.2.947.560 [id number] Univers 00:00:00 00:00:00 98302.1.1 350.1.13.41 ity of 3.412.2.7 2.[place]7.3.698 [place] .3.552601 084.8 .8 [facility] 2021-12-14 2021-12-14 Anesthesia Alexandro, 1.2.840.1 [id number] Univers 23:59:59 23:59:59 Event Agustín 77672.1.1 ity of 3.412.2.7 [place] .3.702905 .8 [facility] 2021-12-14 2021-12-14 Outpatient JOSE A MARIE MDA, MDA [id number] 14:03:54 23:59:00 Víctor [facility] 2021-12-14 2021-12-14 [facility] Jose A Obregon 1.2.840.1 [id number] [facility] 14:03:54 23:59:00 Encounter 98491.1.1 it y of 3.412.2.7 [place] .3.674470 .8 [facility] 2021-12-14 2021-12-14 POKRISTIE Cardoza, 1.2.840.1 [id number] Univers 16:30:00 17:00:00 Georgiana Pinon 94337.1.1 ity of ts 3.412.2.7 [place] .3.010511 MD [facility]8 [facility] 2021-12-14 2021-12-14 [facility] Jose A Obregon 1.2.840.1 [id number] Univers 15:30:00 15:30:00 Visit 15078.1.1 ity of 3.412.2.7 [place] .3.746361 MD Duvall8 [facility] 2021-12-14 2021-12-14 Outpatient JOSE A MARIE MDA, MDA [id number] 12:57:24 15:27:01 Víctoryolanda casey 2021-12-14 2021-12-14 Outpatient JOSE A MARIE MDA, MDA [id number] 14:00:00 14:02:00 Víctoryolanda casey 2021-12-14 2021-12-14 [facility] Jose A Obregon 1.2.840.1 [id number] [facility] 14:00:00 14:02:00 Encounter 84455.1.1 it y of 3.412.2.7 [place] .3.602904 MD Du[place]8 [facility] 2021-12-14 2021-12-14 Clinical Silver Cardoza 1.2.840.1 [id number] [facility] 08:00:00 08:00:00 Support Peter Dennis 47197.1.1 ity of 3.412.2.7 [place] .3.281478 MD Polo [facility] 2021-12-14 2021-12-14 Outpatient CHIKA CARDOZA MDA MDA [id number] 07:37:13 07:37:13 SILVER casey 2021-12-14 2021-12-14 Outpatient CHIKA CARDOZA MDA MDA [id number] 07:17:59 07:27:13 SILVER casey 2021-12-14 2021-12-14 Documentat Ussin, 1.2.840.1 [id number] Univers 00:00:00 00:00:00 hemant Sanz 74352.1.1 ity of 3.412.2.7 [place] .3.989772 MD [facility] 2021-12-14 2021-12-14 Travel 1.2.840.1 1.2.655.418 [id number] Univers 00:00:00 00:00:00 76183.1.1 350.1.13.41 ity of 3.412.2.7 [place]7.3.698 [place] .3.494158 084.8 MD Pol[facility] 2021-12-11 2021-12-11 Outpatient CHIKA CARDOZA MDA MDA [id number] 17:15:00 23:59:00 SILVER casey 2021-12-11 2021-12-11 [facility] Sony, 1.2.840.1 [id number] [facility] 17:15:00 23:59:00 Yann Pinon 37916.1.1 i ty of 3.412.2.7 [place] .3.344982 MD [place]8 [facility] 2021-12-11 2021-12-11 Outpatient CHIKA CARDOZA SUJIT [facility] [id number] MD 16:00:00 17:14:00 SILVER casey 2021-12-11 2021-12-11 [facility], 1.2.840.1 [id number] Univers 16:00:00 17:14:00 Encounter Silver Pinon 99740.1.1 i ty of 3.412.2.7 [place] .3.920397 MD Du[place]8 [facility] 2021-12-11 2021-12-11 Travel 1.2.840.1 1.2.382.494 [id number] Univers 00:00:00 00:00:00 58298.1.1 350.1.13.41 ity of 3.412.2.7 [place]7.3.698 [place] .3.597478 084.8 MD [place]8 [facility] 2021-12-09 2021-12-09 Prep for Clarencesmita, 1.2.840.1 [id number] Univers 00:00:00 00:00:00 Surgery Noni 71580.1.1 ity of 3.412.2.7 [place] .3.146777 MD [facility]o [facility] 2021-12-08 2021-12-08 Outpatient CHIKA SONY SUJIT [facility] [id number] 17:28:19 23:59:00 SILVER casey 2021-12-08 2021-12-08 [facility], 1.2.840.1 [id number] Univers 17:28:19 23:59:00 Encounter Silver Pinon 84933.1.1 i ty of 3.412.2.7 [place] .3.060679 MD Polo [facility] 2021-12-08 2021-12-08 [facility], 1.2.840.1 [id number] Univers 20:10:00 20:15:00 Procedure Silver Pinon 35559.1.1 i ty of 3.412.2.7 [place] .3.282723 .8 [facility] 2021-12-08 2021-12-08 Ancillary Ostrin, 1.2.840.1 [id number] Univers 20:05:00 20:10:00 Procedure Silver Pinon 27432.1.1 i ty of 3.412.2.7 [place] .3.181333 .8 [facility] 2021-12-08 2021-12-08 Ancillary Ostrin, 1.2.840.1 [id number] Univers 20:00:00 20:05:00 Procedure Silver Pinon 85306.1.1 i ty of 3.412.2.7 [place] .3.388821 .8 [facility] 2021-12-08 2021-12-08 Office Ostrin, 1.2.840.1 [id number] Univers 15:00:00 17:28:59 Visit Silver Pinon 21402.1.1 ity of 3.412.2.7 [place] .3.070867 .8 [facility] 2021-12-08 2021-12-08 Outpatient EL OSTRIN, MDA MDA [id number] 14:17:05 17:28:59 SILVER casey 2021-12-08 2021-12-08 Outpatient EL OSTRIN, MDA MDA [id number] 14:11:43 14:11:43 SILVER casey 2021-12-08 2021-12-08 Outpatient EL OSTRIN, MDA MDA [id number] 14:11:41 14:11:41 SILVER casey 2021-12-08 2021-12-08 Outpatient EL OSTRIN, MDA MDA [id number] 14:11:39 14:11:39 SILVER casey 2021-12-08 2021-12-08 Outpatient EL OSTRIN, MDA MDA [id number] 14:10:10 14:10:17 SILVER casey 2021-12-08 2021-12-08 NPR Ostrin, 1.2.840.1 [id number] Univers 14:00:00 14:10:17 Silver Pinon 52424.1.1 ity of 3.412.2.7 [place] .3.776203 MD Duvall8 [facility] 2021-12-08 2021-12-08 Travel 1.2.840.1 1.2.313.005 [id number] Univers 00:00:00 00:00:00 79633.1.1 350.1.13.41 ity of 3.412.2.7 [place].3.698 [place] .3.676407 084.8 MD Duvall8 [facility] 2021-07-15 2021-07-15 [facility] [id number] Univers 09:40:00 23:59:00 WONDIFUL ity o f [facility] 2021-07-15 2021-07-15 Hospital [facility] 1.2.336.590 [id number] Univers 09:40:00 23:59:00 Encounter Wondiful [facility] 350.1.13.10 ity of [place] 4.2.7.2.686 Ghulam as CHANCE?BLEA [id number] [facility] 809 [facility] OFFICE BUILDING 2021-07-15 2021-07-15 Office [facility] 1.2.840.114 [id number] Univers 08:56:32 09:54:40 Visit Wondiful [facility] 350.1.13.10 ity of [place] 4.2.7.2.686 Ghulam as CHANCE?BLEA [id number] [facility] [address] [place] [facility] OFFICE BUILDING Results Test Description Test Time Test Comments Results Result Comments Source Glomerular Filtration Rate 2022-03-17 20:11:32 Test Item Value Reference Range Interpretation Comme nts eGFR-AA (test code = 58 See_Comment L Normal eGFR: >= 60 34344-7) mL/min/1.73 m2N ote: The eGFR is calcula milana using the CKD-EPI equ ation. The eGFR declines w ith age. eGFR <60 mL/min /1.73 m2 is considered a s "decreased". Th is equation should only be used for patien ts 18 and older. Accordin g to the National Kidney Foundation's Ki dney Disease Outcome Quality Initiative (KDO QI) classification and 2012 Kidney Disease Improving Global Outcomes (KDIGO) Clinical Practi ce Guideline, the stage of CKD should be c ategorized based on estima milana GFR. Stage Descripti on GFR mL/min/1.73 m21 Normal or high GFR >=902 Mildly decreased GFR 60-893a Mildly to moderately decr eased GFR 45-593b Mode rately to severely decrea sed GFR 30-444 Severel y decreased GFR 15-295 Kidney failure <15 [Automated mess age] The system which ge nerated this result tra nsmitted reference range : >=60 mL/min/1.73 sq. m. The reference range was not used to interpr et this result as normal/abnormal . eGFR-AYDE (test code = 50 See_Comment L Normal eGFR: >= 60 38861-7) mL/min/1.73 m2N ote: The eGFR is calcula milana using the CKD-EPI equ ation. The eGFR declines w ith age. eGFR <60 mL/min /1.73 m2 is considered a s "decreased". Th is equation should only be used for patien ts 18 and older. Accordin g to the National Kidney Foundation's Ki dney Disease Outcome Quality Initiative (KDO QI) classification and 2012 Kidney Disease Improving Global Outcomes (KDIGO) Clinical Practi ce Guideline, the stage of CKD should be c ategorized based on estima milana GFR. Stage Descripti on GFR mL/min/1.73 m21 Normal or high GFR >=902 Mildly decreased GFR 60-893a Mildly to moderately decr eased GFR 45-593b Mode rately to severely decrea sed GFR 30-444 Severel y decreased GFR 15-295 Kidney failure <15 [Automated mess age] The system which Theracos nerated this result tra nsmitted reference range : >=60 mL/min/1.73 sq. m. The reference range was not used to interpr et this result as normal/abnormal . ZAKIA (test code = ZAKIA) Within 72 hours prior to chemotherapy infusion. Lab Interpretation (test Abnormal code = 59611-7) [facility] [id number] 20:11:31 Test Item Value Reference Range Interpretation Comments Glucose Random 73 mg/dL 70-199 Effective 2 03/13, (test code = the glucose 2345-7) reference inter vals have been updat ed based on Americ an Diabetes Association guidelines (Standards of Medical Care in Diabetes 2016. Diabetes Care 2 016; 39: S13-S22).Fastin g blood glucose:Normal: 70-99 mg/dLImpa ired fasting glucose (increased risk for diabetes or pre-diabetes): 100-125 mg/dLDiabetes mellitus: >/=1 26 mg/dL Random bl ood glucose:Normal: 70-199 mg/dLNot e: Random glucose >100 mg/dL is associ ated with increased risk for diabetes ZAKIA (test code Within 72 hours = ZAKIA) prior to each chemotherapy infusion. [facility]esium2022-07-20 20:11:30 Test Item Value Reference Range Interpretation Comments Magnesium (test code 1.6 mg/dL 1.6-2.6 = 27022-0) ZAKIA (test code = ZAKIA) Within 72 hours prior to chemotherapy infusion. [facility] HospitalElectrolyte [id number] 20:11:29 Test Item Value Reference Range Interpretation Comments Sodium Lvl (test 138 See_Comment [Automated code = 2951-2) message] The system which generated this result transmit milana reference range : 136 - 145 mEq/L . The reference range was not u sed to interpret th is result as normal/abnormal . Potassium Lvl 3.8 See_Comment [Automated (test code = message] The 2823-3) system which generated this result transmit milana reference range : 3.5 - 5.1 mEq/L . The reference range was not u sed to interpret th is result as normal/abnormal . Chloride (test 100 See_Comment [Automated code = 2075-0) message] The system which generated this result transmit milana reference range : 98 - 107 mEq/L. The reference range was not u sed to interpret th is result as normal/abnormal . CO2 (test code = 25 See_Comment [Automated 2028-04) message] The system which generated this result transmit milana reference range : 22 - 29 mEq/L. The reference range was not used to interpret this result as normal/abnormal . Anion Gap (test 13 See_Comment [Automated code = 36570-5) message] The system which generated this result transmit milana reference range : 4 - 14 mEq/L. The reference range was not used to interpret this result as normal/abnormal . ZAKIA (test code = Within 72 hours ZAKIA) prior to chemotherapy infusion. [facility].Serum [id number] 20:11:28 Test Item Value Reference Range Interpretation Comments Creatinine (test code = 1.17 mg/dL 0.51-0.95 H 2160-0) ZAKIA (test code = ZAKIA) Within 72 hours prior to chemotherapy infusion. Lab Interpretation (test Abnormal code = 16589-2) [facility] 20:11:27 Test Item Value Reference Range Interpretation Comments BUN (test code = 16 mg/dL 6-23 3094-0) ZAKIA (test code = Within 72 hours prior to ZAKIA) chemotherapy infusion. [facility] Hospital[facility]ial2022-07-20 19:44:47 Test Item Value Reference Range Interpretation Comments Neutrophil % (test 59.2 % 42.0-66.0 code = 770-8) Lymphocyte % (test 24.4 % 24.0-44.0 code = 736-9) Monocyte % (test code 14.0 % 2.0-7.0 H = 5905-5) Eosinophil % (test 1.2 % 1.0-4.0 code = 713-8) Basophil % (test code 0.6 % 0.0-1.0 = 44139-4) IGRE % (test code = 0.6 % 0.0-0.4 H IGRE % c ount 63475-5) includes Metamyelocytes , Myelocytes, and Promyelocytes. Neutrophil Abs (test 1.02 K/uL 1.70-7.30 L code = 751-8) Lymphocyte Abs (test 0.42 K/uL 1.00-4.80 L code = 731-0) Monocyte Abs (test 0.24 K/uL 0.08-0.70 code = 742-7) Eosinophil Abs (test 0.02 K/uL 0.04-0.40 L code = 711-2) Basophil Abs (test 0.01 K/uL 0.00-0.10 code = 704-7) IG Abs (test code = 0.01 K/uL 0.00-0.04 13005-6) ZAKIA (test code = ZAKIA) Within 72 hours prior to chemotherapy infusion. Lab Interpretation Abnormal (test code = 29245-4) [facility] [place].[id number] 19:44:40 Test Item Value Reference Interpretation Comments Range WBC (test code = 1.7 K/uL 4.0-11.0 L 6690-2) RBC (test code = 2.79 See_Comment L [Automated 789-8) message] The system which generated this result transmit milana reference range : 4.00 - 5.50 M/u L. The reference range was not u sed to interpret th is result as normal/abnormal . Hgb (test code = 9.7 See_Comment L [Automated 718-7) message] The system which generated this result transmit milana reference range : 12.0 - 16.0 gm/ dL. The reference range was not u sed to interpret th is result as normal/abnormal . Hct (test code = 28.0 % 37.0-47.0 L 4544-3) MCV (test code = 100 fL 82-98 H 787-2) MCH (test code = 34.8 pg 27.0-31.0 H 785-6) MCHC (test code = 34.6 See_Comment [Automate d 786-4) message] The system which generated this result transmit milana reference range : 31.0 - 36.0 gm/ dL. The reference range was not u sed to interpret th is result as normal/abnormal . RDW-SD (test code = 51.0 fL 35.1-46.3 H 41681-5) RDW-CV (test code = 14.3 % 12.0-15.5 788-0) Platelet count (test 162 K/uL 140-440 code = 777-3) MPV (test code = 10.0 fL 4.0-10.4 83317-0) INRBC (test code = 0.0 % See_Comment The INRBC 49485-6) (instrument NRB C) value reflects the enumerationof nucleated red blood cells contained in a 200uL sampleof whole blood analyzed by the instrument. Thi s value maydiffer from the NRBC value reported in a manual differential,wh ich is based on a 1 00 cell differenti al. [Automated message] The system which generated this result transmit milana reference range : <=0.0. The reference range was not used to interpret this result as normal/abnormal . ZAKIA (test code = Within 72 hours ZAKIA) prior to chemotherapy infusion. Lab Interpretation Abnormal (test code = 64405-9) [facility] Protocol [id number] 2022-03-12 18:07:02 Test Item Value Reference Range Interpretation Comments Research Prot (test code = 7189) [id number] [facility] (In-House)2022-02-24 15:46:56 Test Item Value Reference Range Interpretation Comments Troponin T (test code 15 ng/L See_Comment < 19 ng/L = 18501-6) Sugge st retest at 3 to 6 hours later to rule out myocar dial infarction >= 1 9 to <=52 ng/L Possible myocardial inju ry. Suggest retest at 3 hours. - a change of < 20 ng/L, retest at 6 imani rs - a change of >= 20 ng/L, sug gestive of myocardial infarction > 5 2 ng/L Suggestive of m yocardial infarction Crit ical value will be reporte d when cTnT is > 52 ng /L and only reported f or the first in a seri es. Hemolyzed speci mens with Hemolysis Index >100 (100 mg/dl or modera te hemolysis) may cause interferences a nd falsely low results. [ Automated message] The sy stem which generated this result transmitted ref erence range: <=18. Th e reference range was not used to interpr et this result as normal/abnormal . [facility] HospitalBlood [id number] 09:11:36 Test Item Value Reference Range Interpretation Comments Final Report (test No growth code = 8488) Path Review - Culture yield may be Bottle/Isolator affected by sample (test code = 8499) quality, prior treatment, and transportation conditions....The results have been reviewed and electronically signed by Pathologist:Godwin Callahan MD, PhD #[id number] [facility] Hospital[facility]inalysis with Microscopic 2022-02-12 18:56:00 Test Item Value Reference Interpretation Comments Range UA WBC (test code = 27 See_Comment H [Automa milana 78668-8) message] The system which generated this result transmitted reference range : 0 - 2 /HPF. The reference range was not used to interpret this result as normal/abnormal . UA RBC (test code = 1 See_Comment [Automa milana 13757-8) message] The system which generated this result transmitted reference range : 0 - 2 /HPF. The reference range was not used to interpret this result as normal/abnormal . UA Mucous (test code NOT SEEN Not Seen-Trace = 95614-7) /HPF UA Bacteria (test OCC NOT SEEN /HPF code = 30527-5) UA Squam Epi (test OCC None-Occasiona code = 36113-0) l /HPF UA Trans Epi (test OCC NOT SEEN /HPF A code = 54377-4) UA Hyal Cast (test 1 See_Comment [Automat ed code = 65911-1) message] The system which generated this result transmitted reference range : 0 - 2 /LPF. The reference range was not used to interpret this result as normal/abnormal . ZAKIA (test code = Some reporting ZAKIA) parameters within the Urinalysis test have changed due to the implementation of new instrumentation in the [facility] [place], allowing greater sensitivity of measurement. Urinalysis results reported by the [facility] using existing instrumentation, as well as Urinalysis testing performed manually or by backup methodology at the [facility] [place] will remain relatively unchanged. New reporting parameters and units will now be reported for all campuses. Lab Interpretation Abnormal (test code = 53393-1) [facility] [place] Lake[place]OVID-19 (SARS-CoV-2)Btuemgvxueem-LZ6755-05-17 17:48:32 Test Item Value Reference Range Interpretation Comments COVID19 Not Detected Not Detected (SARS-CoV-2) (test code = 56748-8) COVID19 SARS Inpatient Indication (test Admission code = 88653) Covid 19 Comment See Note The chika S ARS-CoV-2 (test code = [place] [address]) use on the lyela s Anitha System is a andres l-time RT-PCR assay in tended for the qualita tive detection of SARS-CoV-2 (COV ID-19) viral RNA in nasopharyngeal swabs from either individuals ramona pected of COVID-19 by their healthcare prov ider or from any individual, inc luding individuals wit hout symptoms or oth er reasons to susp ect COVID-19. A fa ct sheet for patie nts provided by the [employer] ([employer]) can be rev iewed at: https://www.fda .gov/Grovac edia/504567/chet nload. A fact sheet fo r Health Care pro viders is provided by the [employer] ([employer]) and can be reviewed at: https://www.fda .gov/m edia/985313/chet nload Results must be interpreted wit hin the context of all relevant clinic al and laboratory find ings and should not form the sole basis for a diagnosis or treatment decis ion. Positive result s do not rule out bacterial infec tion or co-infection with other viruses. Negative result s do not preclude SARS-CoV-2 infe ction and must be com bined with clinical observations, p atient history, and/or epidemiological information. Th is assay has been authorized by t [facility] for use only un barbara Emergency Use Authorization ( EUA) in laboratories that have been CLIA-certified to perform moderate-comple xity and high-comple xity tests. The Microbiology Laboratory at [facility], CLIA Accreditation #[id number] and CAP Accreditation #[id number], verif ied the performance characteristics of this assay. Int ernal controls are us ed to monitor all sta ges of the test proces s. [facility] Hospital[facility]inalysis w/Microscopic if [id number] 17:38:27 Test Item Value Reference Range Interpretation Comments UA Color (test code = 25815-9) Straw Straw-Yellow UA Appear (test code = 5767-9) Clear Clear UA Glucose (test code = 5792-7) NEG NEG mg/dL UA Bili (test code = 5770-3) NEG NEG UA Ketones (test code = 5797-6) NEG NEG mg/dL UA Spec Grav (test code = 5810-7) 1.010 1.003-1.035 UA Blood (test code = 5794-3) NEG NEG UA pH (test code = 5803-2) 6.0 5.0-9.0 UA Protein (test code = 5804-0) NEG NEG mg/dL UA Urobilinogen (test code = 5818-0) NEG NEG UA Nitrite (test code = 5802-4) NEG NEG UA Leuk Est (test code = 5799-2) Moderate NEG A Lab Interpretation (test code = Abnormal 41478-4) [facility]aPTT[facility] 16:40:10 Test Item Value Reference Range Interpretation Comments aPTT (test code = 28.2 See_Comment [Automate d message] The 89151-9) system which ge nerated this result transmit milana reference range : 22.8 - 34.2 second(s). The reference range was not used to interpr et this result as kirstin l/abnormal. [facility] HospitalProthrombin Time with [id number] 16:40:09 Test Item Value Reference Range Interpretation Comments PT (test code = 12.2 See_Comment [Automated message] The 5902-2) system which ge nerated this result transmit milana reference range : 11.5 - 13.9 second(s). The reference range was not used to interpr et this result as kirstin l/abnormal. INR (test code = 0.97 0.90-1.10 6301-6) [facility] HospitalFractionated Ykwskbrsu2504-85-21 16:34:21 Test Item Value Reference Range Interpretation Comments Bili Total (test 0.3 mg/dL See_Comment Indocyanine Green (ICG) code = 1974-2) may cause fal sely elevated biliru bin results. Total and direct bilirubin must not be measured from s amples containing indo cyanine green. False el evation of total bilirubin can be seen in patient s with IgG concentrations above 28 g/L. [Automate d message] The system whic h generated this result transmitted ref erence range: <=1.2. T he reference range was not used to interpr et this result as normal/abnormal . Bili Direct (test <0.2 See_Comment Indocyanin e Green (ICG) code = 1967-) may cause fal sely elevated biliru bin results. Total and direct bilirubin must not be measured from s amples containing indo cyanine green. [Automat ed message] The sy stem which generated this result transmitted ref erence range: <=0.3 mg /dL. The reference range was not used to interpr et this result as normal/abnormal . Bili Indirect (test See Note 0.0-0.9 Unable t o calculate code = 1971-) Indirect Bili spangler result due to some par ameters are outside rep ortable range [facility] HospitalPhosphorus [id number] 16:34:18 Test Item Value Reference Range Interpretation Comments Phosphorus (test code = 2777-1) 3.3 mg/dL 2.5-4.5 [facility] HospitalLDH2022-06-17 16:34:16 Test Item Value Reference Range Interpretation Comments LDH (test code = 186 U/L 135-214 Results gre ater than 1651 98302-4) U/L may not be reliable due to matrix effec t with extended diluti on as it exceeds the man ufacturer's recommended fregoso it. Caution should be exerc ised when interpreting hooker ch values and done in con junction with clinical c ontext. [facility] HospitalTotal [id number] 16:34:15 Test Item Value Reference Range Interpretation Comments Total Protein (test code = 2885-2) 6.6 g/dL 6.4-8.3 [facility] HospitalCalcium [id number] 16:34:14 Test Item Value Reference Range Interpretation Comments Calcium Lvl (test code = 95211-6) 9.2 mg/dL 8.4-10.2 [facility] HospitalAlbumin [id number] 16:34:12 Test Item Value Reference Range Interpretation Comments Albumin Lvl (test code 4.2 See_Comment [Aut omated message] The = 4070) system which ge nerated this result tra nsmitted reference range : 3.5 - 5.2 gm/dL. The refe rence range was not used to interpret this result as normal/abnormal . [facility] HospitalAlkaline Mhjsprbytgv5081-32-75 16:34:11 Test Item Value Reference Range Interpretation Comments Alk Phos (test code = 6768-6) 76 U/L 35-104 [facility] HospitalAspartate Aminotransferase 2022-02-12 16:34:10 Test Item Value Reference Range Interpretation Comments AST (test code = 15 U/L See_Comment [Automated message] The 1920-03) system which ge nerated this result transmit milana reference range : <=32. The reference range was not used to interpr et this result as kirstin l/abnormal. [facility] HospitalALT2022-06-17 16:34:09 Test Item Value Reference Range Interpretation Comments ALT (test code = 10 U/L See_Comment [Automated message] The 1742-01) system which ge nerated this result transmit milana reference range : <=33. The reference range was not used to interpr et this result as kirstin l/abnormal. [facility] HospitalGlucose Xyiki3782-20-58 16:34:05 Test Item Value Reference Range Interpretation Comments Glucose Level (test code 105 mg/dL 70-99 H Eff ective 03/24/16, = 2345-7) the glucose reference inter vals have been updat ed based on [place] an Diabetes Associ ation guidelines (Standards of Medical Care in Diabetes 2016. Diabetes Care 2 016; 39: S13-S22).Fa sting blood glucose:Normal: 70-99 mg/dLImpa ired fasting glucose (increased risk for diabetes or pre-diabetes): 100-125 mg/dLDiabetes mellitus: >/=1 26 mg/dL Random bl ood glucose:Normal: 70-199 mg/dLNot e: Random glucose >100 mg/dL is associ ated with increased risk for diabetes Lab Interpretation (test Abnormal code = 34445-6) [facility] HospitalPO Glucose Vxpqle0960-48-14 16:33:31 Test Item Value Reference Interpretation Comments Range POC Glucose (test 101 mg/dL 70-99 H Capillary blood code = 99358-3) samples, e.g . obtained by fingerstick, ma y have inaccurate resu lts in patients with decreased perip heral blood flow. Met hod description: Al l results are elyse sured using Electrochemistr y test methodology. Th e glucose in the sample mixes with the reagents on the test strip. The reac tion produces an arjun ctric current. The am ount of current prod uced is proportional to the glucose concentration i n the blood. PO Sample Type (test Capillary code = 9554) Performing Lab (test [facility] Main [place] code = 76941) [facility] Cli nical Lab, [address], [facility] [place] [address]; [employer] Products Machine Operator: Pilar King MD Lab Interpretation Abnormal (test code = 31540-8) [facility] HospitalAmmonia [id number] 16:31:53 Test Item Value Reference Range Interpretation Comments Ammonia (test code = <13 See_Comment [Autom ated message] The 39487-6) system which ge nerated this result tra nsmitted reference range : 11 - 51 mcmol/L. The re ference range was not u sed to interpret this result as normal/abnormal . [facility] HospitalPOC VBG+Yjz7062-10-22 16:03:28 Test Item Value Reference Range Interpretation Comments POC VB pH (test code 7.31 7.31-7.41 = 6719) POC VB pCO2 (test 61 See_Comment H [Automate d message] code = 6718) The system [employer] h generated this result transmitted ref erence range: 41 - 51 mmHg. The reference r gilbert was not used to interpret this result as normal/abnor mal. POC VB pO2 (test 20 mmHg code = 6720) POC VB TCO2 (test 33 See_Comment H [Automate d message] code = 7-) The system [employer] ich generated this result transmitted ref erence range: 24 - 29 mEq/L. The reference r gilbert was not used to interpret this result as normal/abnor mal. POC VB Bicarb (test 31 mmol/L 23-28 H code = 87531-0) POC VB Base Ex (test 3 mmol/L -2-3 code = 1927-3) POC VB O2 Sat (test 25 % code = 2711-0) POC VB LAC (test 1.0 mmol/L 0.9-1.7 Method desc ription: code = 2519-7) The i-STAT is an analyzer used f or in vitro quantific ation of various anal ytes in whole blood. The device uses a s fer disposable cart ridge which contains microfabricated sensors, a calibration meera ution, fluidics system , and a waste chamber . Each test cartridge contains chemic ally sensitive biose nsors on a [employer] ip that are config ured to perform spec ific tests. The microfabricated sensors measure analyte concent ration by an electroch emical assay. POC Sample Type Venous (test code = 6690) POC Clean Dev (test Yes code = 6672) Performing Lab (test [facility] Main Main [place] code = 16865) [facility] Cli nical Lab, [address], [facility] [place] [address]; [employer] Machine Operator: Pilar King MD Lab Interpretation Abnormal (test code = 05498-1) [facility] HospitalAFB Culture w/Ehbhv1217-12-73 01:01:47 Test Item Value Reference Range Interpretation Comments Final Report (test No acid fast bacteria code = 8488) isolated at 8 weeks. Path Review - AFB Partial antibiotic (test code = 8477) treatment can render AFB culture negative. AFB culture has sensitivity of 90%.The results have been reviewed and electronically signed by Pathologist:WILL HAWKINS MD #[id number] Acid Fast Stain No Acid Fast Bacilli seen Truant (test code = in direct smear 81661-4) ZAKIA (test code = Cultures are held 8 weeks ZAKIA) before finalization. [facility] HospitalCOVID-19 (SARS-CoV-2) PCR- Asymptomatic CP9281-07-11 05:26:08 Test Item Value Reference Range Interpretation Comments COVID19 (SARS Not Detected Not Detected CoV-2) Result (test code = __This test is a 66846-9) qualitative reverse-transcr iptase polymerase anjelica n reaction (RT-PC R) developed for t he [employer] CHIKA 680 0 system and inte nded for qualitative detection of SA RS CoV-2 RNA in nasopharyngeal and oropharyngeal s wab specimens colle cted from any indivi duals, including those suspected of CO VID-19 by their health care provider, and t hose without symptom s or other reasons t o suspect COVID-1 9. A fact sheet for patients provid ed by the manufacture r ([employer]) c an be reviewed at:https://www. fda.gov /media/198626/d ownload . A fact sheet for Health Care pro viders is provided by the brazer controlled atmospheric furnace ([employer]) and can be reviewed at: https://www.fda .gov/me hector/706073/down load Results must be interpreted wit hin the context of all relevant clinic al and laboratory find ings and should not form the sole basis for a diagnosis or tr eatment decision. Posit gume results do not rule out bacterial infection or co-infection wi th other viruses. Negative result s do not rule out SARS-CoV-2 and must be combined with c linical observations, p atient history, and/or epidemiological information. "Presumptive Po sitive" results are due to partial amplifi cation of SARS-CoV-2 t argets and indicates l ow amounts of viru s present in the specimen at or near the limit of detection. Rega rdless, individuals wit h "Presumptive Po sitive" results should be managed per institutional guidelines as individuals pos itive for SARS-CoV-2 virus, including use o f appropriate inf ection control protoco ls. Internal contro ls are included to ass ess for possible amplif ication inhibitors. If inhibition is detected, testi ng is repeated and if inhibition is confirmed the s pecimen is resulted as "Invalid". When an "Invalid" resul t occurs, it is recommended to wait 3 days before sub mitting a new specimen for testing if clin ically indicated. Thi s assay has been approv ed by the FDA for use only under Emergency Use Authorization ( EUA) in laboratories th at have been CLIA-certi fied to perform moderate-comple xity and high-comple xity tests. The perf ormance characteristics of this assay were verified by the Microbiology Laboratory at [facility], CLIA Accreditation # : [id number] and CAP Accreditation # : [id number]. COVID19 SARS SERVICE DISMANTLER Swab Source (test code = 84413) COVID19 SARS Pre-Radiation Indication (test Therapy code = 80319) [facility] HospitalCRP2022-05-11 17:20:27 Test Item Value Reference Range Interpretation Comments CRP (test code = 8.81 mg/L [place] CRP 17190-9) assay are as fo llows: Reference range s when used to assess cardi ac risk: <1.00 mg/L Low cardiovascular risk 1.00-3.00 mg/L Average cardiovascular risk >3.00 mg/L High cardi ovascular risk.Reference ranges when used to assess inflammatory responses: Les s than or equal to 10.00 mg/L. [facility] HospitalNT-Pro BNP (In-House)2022-01-06 17:19:19 Test Item Value Reference Range Interpretation Comments NT ProBNP (test code = 272 pg/mL See_Comment H [Aut omated message] 48416-9) The system [employer] generated this result transmit milana reference range : <=125. The refe rence range was not u sed to interpret th is result as normal/abnormal . Lab Interpretation (test Abnormal code = 28563-2) [facility] HospitalBilirubin [id number] 16:57:43 Test Item Value Reference Range Interpretation Comments Bili Total 0.4 mg/dL See_Comment Indocyanine Gre en (ICG) (test code = may cause false ly 1974-09) elevated biliru bin results. Total and direct bilirubi n must not be measured from samples contain ing indocyanine gre en. False elevation of total bilirubin can be seen in patient s with IgG concentrati ons above 28 g/L. [Automated mess age] The system which ge nerated this result tra nsmitted reference range : <=1.2. The reference r gilbert was not used to int erpret this result as normal/abnormal . ZAKIA (test code Within 72 hours = ZAKIA) prior to chemotherapy. [facility] HospitalLipid [id number] 16:55:20 Test Item Value Reference Range Interpretation Comments Chol (test code = 333 mg/dL See_Comment H ATP III Cl assification 2093-3) of Total Choles terol Primary Target of Therapy (in mg/dL):<200 Pewmthhzr921-57 9 Borderline high >=240 High [Auto mated message] The sy stem which generated this result transmit milana reference range : <=199. The refe rence range was not u sed to interpret this result as normal/abnor mal. Trig (test code = 207 mg/dL See_Comment H ATP III Cl assification 7411-8) of Serum Trigly cerides Primary Target of Therapy (in mg/dL):<150 Rccico056-686 Borderline high 200-499 High>=500 Very highNon-fa sting triglycerides > 200 mg/dL may be fo llowed up with a fasti ng Lipid Panel. Calculated LDL- C may be falsely decr eased when non-fastin g triglycerides > 200 mg/dL. [Automa milana message] The sy stem which generated this result transmit milana reference range : <=149. The refe rence range was not u sed to interpret this result as normal/abnor mal. HDL (test code = 73 mg/dL See_Comment [Automated message] 2085-04) The system [employer] generated this result transmitted ref erence range: >=40. Th e reference range was not used to int erpret this result as normal/abnormal . LDL (test code = 219 mg/dL See_Comment H ATP III Cla ssification 17823-9) of LDL Choleste rol Primary Target of Therapy (in mg/dL):<100 Lhykjzf461-457 Near optimal/above vbbjqod312-409 Borderline high 160-189 High>=190 Very high [Automated mess age] The system [employer] generated this result transmitted ref erence range: <=100. T he reference range was not used to int erpret this result as normal/abnormal . VLDL (test code = 41 mg/dL 29510-5) Lab Interpretation Abnormal (test code = 94816-0) [facility] HospitalHemoglobin [id number] 16:36:35 Test Item Value Reference Range Interpretation Comments A1C (test code = 4548-4) 8.2 % 4.3-5.6 H HbA 1c values >=6.5% are diagnostic of diabetes mellitus.Diagno sis should be confi rmed by repeat testing.Therape utic Action suggeste d: >8.0% HbA1c; Go al oftherapy: <7.0 % HbA1c Lab Interpretation (test Abnormal code = 76264-6) [facility] HospitalMD NTRK1 Fusion Analysis with Interpretation and [id number] 15:18:40 Test Item Value Reference Range Interpretation Comments Archived Material Previously diagnosed (test code = 44282) tissues from [id number] were selected for molecular analysis. Results will be reported separately. [facility] HospitalMD KRAS Interpretation and Report 2021-12-29 15:18:35 Test Item Value Reference Range Interpretation Comments Archived Material Previously diagnosed (test code = 29058) tissues from [place] [address] were selected for molecular analysis. Results will be reported separately. [facility] HospitalMD EML4/ALK Fusion Analysis with Interpretation and Rrwdtu5967-00-07 15:18:30 Test Item Value Reference Range Interpretation Comments Archived Material Previously diagnosed (test code = 11878) tissues from [place] [address] were selected for molecular analysis. Results will be reported separately. [facility] HospitalMD EGFR (Exon 18, 19, 20, 21) Mutation Analysis with Interpretation and Pygvjy4748-19-87 15:18:25 Test Item Value Reference Range Interpretation Comments Archived Material Previously diagnosed (test code = 22019) tissues from [place] [address] were selected for molecular analysis. Results will be reported separately. [facility] HospitalMD BRAF V600 E Interpretation and Yujkex3159-03-28 15:18:15 Test Item Value Reference Range Interpretation Comments Archived Material Previously diagnosed (test code = 67004) tissues from [place] [address] were selected for molecular analysis. Results will be reported separately. [facility] HospitalMD ROS1 Fusion Analysis with Interpretation and [id number] 15:18:10 Test Item Value Reference Range Interpretation Comments Archived Material Previously diagnosed (test code = 86660) tissues from [place] [address] were selected for molecular analysis. Results will be reported separately. [facility] HospitalMD RET Fusion Analysis with Interpretation and [id number] 15:18:05 Test Item Value Reference Range Interpretation Comments Archived Material Previously diagnosed (test code = 09453) tissues from [place] [address] were selected for molecular analysis. Results will be reported separately. [facility] HospitalMD NTRK3 Fusion Analysis with Interpretation and Imhfoe2721-43-35 15:17:55 Test Item Value Reference Range Interpretation Comments Archived Material Previously diagnosed (test code = 82515) tissues from [place] [address] were selected for molecular analysis. Results will be reported separately. [facility] HospitalMD NTRK2 Fusion Analysis with Interpretation and [id number] 15:17:50 Test Item Value Reference Range Interpretation Comments Archived Material Previously diagnosed (test code = 60938) tissues from [id number] were selected for molecular analysis. Results will be reported separately. [facility] HospitalCytogenetics Specimen Collection -[id number] 17:40:32 Test Item Value Reference Range Interpretation Comments Elisa Das Link (test code = 87461) [id number] Cytogenetics (Received) (test code Yes = 8304) [facility] HospitalMD NGS Blood - [place] NGS Blood Control is required for all Molecular orders of two or more genes to receive testing on the current 146 [facility] DNA Panel. If [place] NGS Blood Control is not ordered, testing will be routed the 50-gene, CM50, panel.2021-12-23 19:54:27 Test Item Value Reference Range Interpretation Comments Molecular Diagnostics Yes (Received) (test code = 8400) ZAKIA (test code = ZAKIA) Please call and have her go to the lab [facility] HospitalPathology Biopsy Interpretation 2021-12-16 21:39:00 Test Item Value Reference Range Interpretation Comments Addendum 1 (test code = t9zmqOHbICAczBU3ToD 37) bQENnt4szi7JehZOumT QpGPkhcUKlnqUdya10l PV5yZ24YT3yDGAsAqI1 ZEFxtyL0Pcy9JHInQNL wxVJzD185s9hyc5crqw AvsGB4hUatNYUvoewiI sV2DXteNUYjkphrZVb9 APasDBNvyAX1NCUacKX eF5VxEPEiVY3txdv3SO E9WHdnDJInVsX0DWBys YVnTAMsyTjuBMgvd571 OXJ5LxLhKUVrjmUxyYl ldU0sLtMgSHRMXN6TVS AoN6coubZmEfMCWsicA DGkojNNmRTynHE5VQZM gS8dgqXbOMUmk1JbxzB mh14bB7ZtbtCkNXMQBs n9CQFfJNEscenlQMFmY WWzd9F8JJslVh4azLM9 fE3kYZYpKAB4STOhyOM gYXNzYXkgaXMgbWFudW VvO2H7jsImKPS8NDNto WxlbnQgRGFrbyBhbmQg aVBouaSfXV6svj6meG4 eVJahFA97rV0LOZ5QUE uqQ8pkxyZmSpXRLw7eZ IQhmAYonUWxRv5reHMu OE1hTCZmha6ojAjqTBS peGVkIHBhcmFmZmluLW LvNdQdBFVrENGgv2B0F US3m5fnLuLbtdWKY4cr MW79KPHwd59hHYN4i8S 0NNakJOVjVI9gUUVukQ gbBPFtImWcANJyLSU2Q BL5jG6jXWskuSrtAJEf n1EuB2kenPIhEJJ9RQM dWNXlLT99DrLvuMLmMV EdYTr0LYuvRKZnuIDqm yYxYFLhqzC4r6IuILSx LGZol26bTF1gs67kYBe tI28ud2JfGjWbn3XolT Ezb0Evy9WbS1qaeCEvd EezapTgfMBiTX9fIHBj fhXunP4hoQUls8FahEr wZXMuIEludGVycHJldG E6uA8fWSf5pVEbjQbhH DWcuhJqzE4yWe4fLZT9 yW4rGEhzbKUwF5QfnWF iTPMkR88zSSRsNRXYYH wgdGhlIHBlcmNlbnRhZ 5Nck5KpmMGpv9PuxXHg JK9curGka9SgWIfkOcW haE0eRH6oKQSvcDKwqz RlbnNpdHkgaXMgYXNzZ XNzZWQuIFBsZWFzZSBy PPKyyuM6pvE9jLZdcH9 3BA2gJKQevKoacrIcyN FhIHEdRRsjGIxyz5Yyz WXqi2VwCDWvlg8whjpe kGMgeNMsRM2uFPLud9R uuMNeHWKtqtCitt0tst RmBDAuIQChH0Lanxitn GljcyBvbiBvdGhlciB0 qPKeoVOrnIkpVYKwj0N jaCBkZWNhbGNpZmllZC OxfPJxcQ3yhzTuFI7gL G3oOW8gfy7wzIIvv2Yn DCC6hS4vueH4dXDcnwS hbmQgdGhlcmFwaWVzIG Zmpu8qkSFyVGYggDLnY J37NAErMcivROHlfKLi ZFxpMFxwYXJ9 Submitted Clinical History y2ymhPYuZMYky5tiXXO (test code = 49422) mbGFuZzEwMzNcZnRuYm pcdWMxIHtccnRmMVxzc 1SlP9IwViVlIBkmaxGt XGRlZmxhbmcxMDMzXGZ 0bmJqXHVjMVxkZWZmMH gkEc3ewOJtdJkhDkFaC YViu0wekwWZbihqbFl0 y1rsXCUfZzA8tAIgUWs tJ0nodvChsPYrNIIqLS b2wH34PEQdkA0plTEgQ HlbcvChMkK8NTydECXz GsG8DVBysMLcDMMwL4j yZWQwXGdyZWVuMFxibH UaKAR3qRkgb8C9aKWpa GVldHtcZjBcZnMyMiBO i7PfTUr2eXhbV2VvPWZ dNoC4bZCpWGXbZRjtYF ZxMAWvtaU6iW21OAudf yY4uXNvu4Cwr29em210 kS7dxLEbDME3GFEyQPD zgQOuXDAeHWK6BEOidZ UeZ8pwRLRrIY2coeypN JnoBQfhLJTyzIR1OCQn qTLxQ9PyFHGuPZpvMLD lzkk9XsSxTl7ahTJriM chBJplm4agq1olmRVzT zg4XDNgLeDgLcyzVEgx q6Lvx6niQFBlro1wEFI 7uGJinScmc3P1yZPzLI JixSBmopUvQSBsChR5B RqlWX5uao63ZLEzKGL6 rl7reAUuhAtbxiRjuOL rNOutE5ClJCVwc780JS XoV8TjRCQcp7T7flUkI bQnPUJvgQW5jfP0PBGc MFx0gEYtudY9teSxdGX iC1incN7kQKVqOO8dzf qsx6rzHIhxIKwkXFQuo AJ9blT4FFLfaSNfB5Kh oH0xEMUmUXpyYLAjwws 1DyBbIk3cnODegWkjCH xzYmtwYWdlXHBnbmNvb nRccGduZGVjXHBsYWlu XHBsYWluXGYwXGZzMjR jrPyozPkxhC3kAcOgDs ZyRUlxIS8gOXHnW0cma HZpRVZzDYJiL6vzTbDj uM5jgBflLGjnzsUvXWp 1bmcgbWFzcyBbUjkxLj hdXHBsYWluXGYxXGZzM jJcbGFuZzEwMzNcaGlj aFxmMVxkYmNoXGYxXGx bN0jxVrQwDiMxSktwDX J9fQ== Diagnosis (test code = 34) b8uiiDSgTUIowJV0RlS vETAxb3frz5TkpQHbkX DjKIlilGDsvaLiis85m ZG8uP68QP5hMRYbGqK2 HQTfmgV1Asf4EMWnEUN beQWlM336s5zbc2lpqr SerIL7LMDmOSJfP9IqE J1nOIRukZPaP48dgRFh GBN6IFChKBJkeQFkGPV zKOW6HUMtnUWqT5nhFT WaOU3eezdxKUwwYUkaF XPtfKY0FSNoyQRzU3Zv RDFhDSlhKTPxnia8DjF xSo4vsTZooBbqIMzpPH JkXHBsYWluXGZzMjBcY 8BeTAEqUXn0ozygQHhr UcZahUOcCXScxR3aWEw dCW6ph9Ctg00fpGonaD RsbC2ct2m8OZFlenavR OEdwPg0NdUvvJyyFoAk ICKwNRBNSYBHDB3WFrB JZGvHKMQJFcPMKx1CPK xwYXJcbGkwXGxpbjBcc YAmUDCJQ8bJCZJllbVs CO8yIA3eRFDvWBYofm5 = Gross Description (test j6ongCEbOKNwuINMNCg code = [id number]) wMVxhbnNpXHNwbHRwZ3 EggftrBVseXJ2fUY0eu CfvbGYdpDZqDR6WHNFb ZmYxXHBhcGVydzEyMjQ yWIGqxZVtkLK7AYHfGM 1hcmdsMTgwMFxtYXJnc jC0APRcfHOoP2HrOTYg WJ0wkfjiAXI9CNenxV2 iklPLSoduKh3dwLQfaC tcZjFcZmNoYXJzZXQwX PRbfDrsEZLfYGm5kU6D EqxuP56xj3Y9Ncd4SIU nSBKyS1MiXY5gDXOvxD FlI87KUlyyFSY1JTULE rmdVXVhKB7Wj1zqIKKb oKIcQCN3HFqqyIUlKCT pMMCvVEg3XKVxHDpvaA OwHY5ppUzkKdkjpPtxh 2VjdCBcXGlkIDUxMDAy GGqzNUOjBO1JMwSkDLE mQBe6YEXsDHj7XBg1CP 1BWzJpAUVyVGZ1Odf8H FUoIXk2JZdoKB7FFOZy MjAzNjAzMTAgNTUzMTM zLEc0FFFiXUfyVJOioY FsIFxcZnMgMTAgXFxmY lJoMWTfNTawgtH0ZERl YWluXGJcZnMyMCBBOlx lQNSzUGlenMwbcU6yTQ HtY45lj1YWq3PqLZ4ZW Hn1yjJhtkkwtR9hEJSa wqCfUOpktMSlJ1kcLnc eRqRjOpJwAKEAaY8gXM FtORO3CMDiaIMpWWvjF jHcIGXiGI2pti8cE4pw FZwrAhwclKO6IgciEGy fXsGqDX82eXQiiKeoHB NvZnQsIGZyaWFibGUsI BXgwvB1zsT7DZ8uZvMx l34azVozz4LaUYDfVBr oOH72ozpmXG25ZWbmWH 85TTexTS4iDXLsIIlvC SReC7YvD6E1FDkuAG38 pQVfdQptt7BofLa1nUI kIGluIEExLiAgXHByb3 BoY8B6SNOtQBvvr7cdR TZtOSmqp5HtPGtYMXOL QJ5KBT7skTG1SLwOI9K JO1gGhHLvBXA0uID6RI UXGlvsxVA5pSD2kZ92Q XRdOQDovZGxCLokE528 DRB0HGFgHSlll5zqKGB aPZrdf6OkLSsYKIWFUB 1IKP2stBO8QNwWP9KNA HwyMTAxNnwxfFVTRVJ8 DKlbxRzrrZs3p2karYW tn2f8BPycPBH5mUkadU FpblxsdHJjaFxmczIwI V0NTHOdnTAUCDU5PT1m MXr7XImaTROkW7KwT6U lbmRccGFyXHBhcmRcc2 boUVB9DYTwwXSsjMZwY lSmXvplVHT6MHXtZPgg HI1YITStJVN3XSrvaF3 6tCUdYL6TSFDnNMshGE RbSDKfoxL4HIDimIItB ET9EA9tqElfnABczcat rdL3CF1IrU== [employer](s) (test j5rcnPKoKNCdgEE2AeN code = 9841) oXGRoq1grw3LxnTIznY PpSRdyxDSegvNqhy99e LW4yF31UI7kJEBtYdP7 ZGGomjP2Hqu7JXDeTPC aiIMsK336p2pob2kyig IczZS7xUgnNTClooqvZ hP0XSeiHLAodnspPUb8 KUofXHOasHV8DZEgjBE oA0KbZWTzFH0jgzj8IX J1MFoeRNWtLxK1BMAhr DIyFCPwhGyhAIgko653 GOD5MrPvQRPnjxTdbKt qfS2wGzRhDZQEwwkeBV Q2CCKeqghutAhnTVFXc F3vssMbdG6rdhedNIPz cGFyfQ== Disclaimer (test code = u3xzkLLnYLWyoEBmEaI 9844) yFOSzGCUbu1ydZYUgfA FuZzEwMzNcZnRuYmpcd IDiCIPrBuUbu1oul737 mAJor5tdZRTcAvQ3nAS oVBFwoTAwP418QUZnZN wdp4mau8SdLIUxbOVto 5L8ICOCtrqgkPr2lTlw R88fs3E9DozqA5wkAPK uUXKmR8GuUK8vZGGrMn i3ATL4ZFF5UFXlTVBxA 4VcXQ5uJBPxnNImKTq4 u0kxxLqgWBXfTRT8g0a iUCumojHcTT6fxv2waV u2e4hdmxTsHXWnUCBhu YUKDUIsH6XprRwtJg5u kBb0eMfpYjuiXIL9Glq 9XR5chk57fqe2yDrgMY UcnjwwKvS1OZnzGCRsh wxuDQy7KHsrQAUpdRJ7 BLZweCAiR0MpTBEkKY7 txsy2JOX4KJauHCOuFq V6TZMscCEeZVTdhFllO Lodr799EBF7ZcNmID8j K5Srw8Z1eY7bwNUdRPW wqLIpQmNfXRGxer2qqU VfGMrfl7CdPSA4zfO1y ZAzlGVqMZUbDZ82Apli i4XqXxplRVF6VYPcgqR yc8Deg8zdSzLnijTbN6 cvD1QaRLQbYFSwYIOyN rZahmIca6Fff4SmbSZo aLx8r8efIJDxYQWmaWz lh8oaAWM7GDXoQ3Y5rY Jgu8raHVbaZCKgzZF3e kZ0OXIjiRGwS9FggE2z NEHjPA3wnoq9x0mmWBX 7FHnlATBtRjI5msT8IG BcaGVhZGVyeTcyMFxmb 346IEO2NjGgTQPje8Sz H5FqoPnfO21jaOejF56 rPSOpaUfbbF7ptQlwgL 5cZjBcZnMyNFxxbFxwb VEnrpgrXAcixbV1PPwm eumkNXBvQOexM0ucYpA cNIZfrBwoDOtcv4QoHM UiYFOvCnukyvM5VBYPt 73aBBZtd2MvJWNhwF2l pAFcAGiuvuCcyOG0UNv hdmUgYmVlbiBkZXZlbG 9bXVPdUZ7iPVMoiaKvb h0janFfMRPmHFOyC8Kx cmlzdGljcyBkZXRlcm1 yttSuDNN1PSWTOJ0RQQ ObYUCab82rVNGamMzcz Q7onYJuwjZmCABqg2Un uQ0rbDFRHAFgK0pgAZ8 oLLjub6OsrAVvrSQnbB B4NZNxp8SmYtSmbqEft PWihFKlI8YqlJviM7xr IJCtNTLfmnNatHYtn0L dNJZbjXK5pSRxBA4PRv WCi73cNRGqWLUWpeWwB STykSrqwSX6hwQ8kW4h LiBJZiBhcHBsaWNhYmx jCPZon751ew1yznS2GY BeYPYsdnqpt2GfNWYhQ SMojJ89IWJaGYBtux2t oskgaHOvjxZwH6Xvqtb 9lF6sLJYeQGjmMJSzSM ZzMjJcbGFuZzEwMzNca GljaFxmMVxkYmNoXGYx MSkgZ3izXuWmNjPfHib wYXJ9 [facility] [place] [facility] Image-Guided FNA Szgkgnlaqiequc8967-64-92 19:03:20 Test Item Value Reference Range Interpretation Comments Gross Description (test i0wqhGIuAPWnbZA4FgOxC code = [id number]) YXrr6sve9IspBZiuXRdBL yvqPZccyObue59uEW8gZ8 9JP9lSUSsViQ2SMLnlhH1 Ujy2CRMsKJZdiUNaI984i 8cwm2bfotYjnOF4NGKzZA QjZ9WtNY0vUAWajPHbY89 riSLgDLS0PFXrFYLzxHTi BLAfZID3ASZnnJNtX0qyZ UWzHA1boahvQGfbBBnoIB AoeOH0RVBeqYTjR2NyJKM qJKpdJTBivmb2AkAcXb0p qFAhsBbiRAdmFMPdj3yzC MEqrOMqAMY9LKgtvTLaDU MxQZNjEMp9UXFdIKfdcUE lNW9awSdbOafuvFtqn0Cj dCBcXGlkIDUxMDAyIFxcZ VBgC2BHLSNhNgT0QtI7RS YwLDk8HUuzH1ZYFLZdGIX 3CBN0ELo9ZzS2EPm1BJES Gh1qPFLrQQZ5PXW6GGR5Q TMxMyBcXHQgMiBcXGZsIF xcZiBBcmlhbCBcXGZzIDE oKIvsQoBaMKwyC39dtXza pM2gLghsmqNzHTY2PDEio kjhDEwsTtRoJ8IrZ9viUF 4dTHQid3T7ahTbYxivKGO uVvPTsJThXGO2qSq8XWPy EVGuXVU4BIriHQLavUMgk 2zhHEWbTv5cStwNF7QyrL BfFSCqfeUDxXfeWxQ9KxR bcDW8YmMkY34huLDsOVBb hlpqSeNqI5FiK9vsOL1kP TIfaKExA1jvs5YiFGWkxk Bkjh5oQLEmsYOYKqVPFKX 6iL7dckhqJ8NtUPXZIUnt w7zmmIftq1YfcAKqNT64E KKdiXUlJIA3ST0wuMyuAS J9 Immediate Assessment Adequate cellularity (test code = 9837) Major Classification MALIGNANT A (test code = 9839) Diagnosis (test code = p7mawTSyWSRozJE8LxCqO 34) NGms9xoy4OfsWGoxBKlQM dirWJgqwJffa69uZD1zI4 5VX5wKZWrGsV2SYEnqhB1 Qmk7QGHeEXOwjXNhX338h 8axn0kwcnAedCZ8SPMsKE NfS5ZyLE2qNJIpvSHiT87 lePNiJJF8STKlDSOjyMLh EWEmYTK0OSMnyLUdV9xjB AThXP7igzyrCHjwVVmjJX UerNJ7OONniGEdB0OiXYS jTAgfPQJhytw8GfRxAu9t hAIgrClqGOnhN8wnaL3yY oD6KEocB1udtW0tNIo0TW zaIJCwnZL5vzJ3YGFdfBL iU0GzcW4kNHTkYF5vsds1 f5zlFBJ9CKvbPHApKqV1c kR2IEEwrQDpEPhbdWMzbc xmczIwXGNmMSBBLiBMdW5 eFZFgOXN3YDDhxAGgXXxg YmUgaGlsYXIgbWFzcywgd J97A0xywYTqtZObBZZzp2 15BNGsayc5MXPjpTMgWUp pNzIwXGxpbjcyMCBTUVVB OT6IEwQDVVpOBHKJKjJSI p3OPJfjTNZ6 Comment (test code = u0otsTOgDGZzaME0ThPlB 9835) YSbs3ndn2PkpSXcuMOuBI owvNFyrsBnxi84nKN5tN5 0ET2qZVBnCvA8HJAtcqS6 Osb0ZLZuUFQxjXRcZ589r 2gfg8arevRorEL4hPonCG NbdnmhJeS6KZpgOWJukzq qHGe0TKnjJACrrPM6GDBd pREkA7YfAONiZJ3dsyk1W VO2LHhyCHLrFgB5UCBbuY MkNTZikSsoYZvxs293GCP 5NzIwXHBhcmRcdHgzOTYw XHBsYWluXGZzMjAgUGxlY HWfLVMxZRU7nSTkY67yR4 UwcwUowORntD3qe7tppcR wr4W7IRtNQmYaONX0DWQ7 AHPms4QlEoIefWiqmnHso hEbjSA2nE5aPyosSBA6 Retained/Biomarker m6gbyAAjSTVdwVY0TzGnV Testing (test code = UOxi2iwf6UpsZDqsMUfBU 9838) rmfJUdyfDbbp11vFO6aJ9 6BK1wZSIyYgH1IBNcgiD8 Rfn8ARZsDANhcCNdP189r 5ibi3eqpsXzmOZ5pGpwYW AlazmwMlL5SQmrIRLfgki pRPy7VVvbAKJddFA3MDJx dFGpT9QhMSAqGQ5marz5H HT2KIadJNZbQwY4CFZntB WhTPUmlAbqIDnfh044EHS 3CgOjVIHmfzWfxWoilM9e ZnMyMCBTUjogNCBTXHBhc ysuHZFkQxyzvRBcs5UkYB Mpv4Datll3HYVvpgpoyOi hHLviuH40SxKrHCEYYPYx gHloQsskH4t9FUcxpr39S CK6z5ilxEErOHkqYfjjlM AbscS0XQoIYHJCKZyWJgR tOW6kYJvIU8CPILdHMxzn IDF1PHrfhCR5w7ixcMWpo 6y7KCmxYMG5bY7iKTyxMz oqrYJ3NZzsMbnmpF3uvCS NMBUBMugVZyyqgdErKK0W XZEVNT7CaYE1PxH4lXD7X R02YZEyFZHysFRpPVswF9 19XHBsYWluXGZzMjBccGF fZD9GLRXMVFX8TMjpam61 EVH0k2czkUShOHozIspmc AKoreI8VFfXPYNPYHeVXz PhLW8xXHmRK7MILDuZKmx cOBG6JXoouDU6i4jilDFv j0t2ESzkWHC6iP7li2ije XFfWQpbNjvdeIUtdcA4UQ cKKJMYSHtKEmYxAY9aBAy NK0OEGkG7ImR8JiJ1Ybmc fXtcZmxkcnNsdCBcJzFjf B1drQkwhA3mOmKkWMemJV IgTURMIERROiAxIFNsaWR lXHBhciBGSVNIIERROiAy WTGnwIPsz0npWIQigqPPU TODTXiUU3PlDEWQFRRHAW ErOaONHA9zWkS0JXr3WN3 0AeZ4UtcifYK5VOTDTILO XDrUV9WbXUPSFUJGXXZoZ Z2UFBpAJLYPUBKJG97DZT EWNDGIJ5ISW3hTNWzMMUE GOPYLO40UTZLIXHTVI6CN XNTOBWAEYEqQIUZUDq7IF TCWXDXXIZ8DCBoZYeRwHJ uDWJmrC6SupZPHqN9asev oJPT9BPc5Wsz6Tk5vF5ja AJRhWiZ2SbqgOH6bSLlBG 5KLJ8cZJRTbYXOPPIXOUU KfWH2JNEpWPY4SPWXtZWK IMBBVSYLzBlHARG3fEBgM YO2WNNKwALEZMFXWPJJtP Z6DTXUCKP5WURUGUABYL3 4UEBONDSBNW9GEG8hZRFQ UGYBQBnDQYoACKE8LTKMW LJLYFR6FPrT3 Informational Points m2heuXBaOPEchTQtNaBlW (test code = 9836) LHbPYEki6ctJPYooGRdZb EwMzNcZnRuYmpcdWMxXGR fPdVop2pqj111cHBsp0pk FMRcAcC8kVDmFQKzoZZwF 003UBIkKGeho6cgf7XdBG ExuPRml5Z2SLZBNBrxISS KXSl3q9vuUlJgMhG1eNXs OBdhI4zasgNmzFDoEGJzN Kb0aH52SXLjgP3qbVGeEL wozeNxSiH0FUtrEFKjCoQ 6RBIwoEKgXLJaU1qoFYCg MJqqAACmIYkmsFBuVON5c Xmvl6O4xVVebJZwvQpxDq LtCzJgYwOSl7HfOWr3yZf iT5BtOAMbIhQ4lTDxVAQd GXhjWUWfEWReybV9pE57O ReovkQ5mQNky8Pes90zf6 76mD3leUJgYRX5SFLbKLO hcOHnPVJgJOD0JVNnpFYx P9mdYPFvDF1bvonuLVrbP OthZLKqpSR6NLOxzDYnD1 ZeEJPhRGdpGYKmgbn3KlY zQq6ceZZizCkkALuno9ty v1alcREqRqg6AGVpFxMyV dhuBTysw3Row9giQSGwdh 8gRCI3iTUbnEldn2F5zSX xXGRudGJsbnNiZGJcZmV0 NPjvAF2wlx00PXGnQHP4j c0znYKumPkjcmEqwFKcFL ehV1JbSDQxl493GJOzL5R qIWFvk6G9myLbRsGgYLZk iVL5goF5ZBCqDSx0sUNmm hY8ogBljJVzI2pqzY4kIT QiAJ8mqwyjl5chRQlkXPv qYFJmjIU0pcB9CFClaXAj G1CfsL9tXJYrFEuwAXCzt mp8HgDeUd4ccLSqnEhsSE xzYmtwYWdlXHBnbmNvbnR ccGduZGVjXHBsYWluXHBs YWluXGYwXGZzMjRccWxcc AiviC8wOpHcGdXwLShhDR 3uHKCxP8xuhBSyJMVyWJZ iV8kuJlIjaI3mxYwfQVox qnY7SHejU62lQBA3UUI5n yByZXBvcnRlZCBoZXJlIG 2nsOWwNLRtKSIaVZ3pHRV 2ZWxvcGVkIGFuZCBwZXJm h2JdVJ0gAGHbfNGuIUJ2S CRfu6OeJ1PcKLX4VGUlyU 5lZCBieSBVVCBNRCBBbmR atuTetfOVDYEdf4ygZ8dl TO2fIWrnIx3tGIGlxpnvQ WVkaWNpbmUuIFRoZXNlIH Cpc5HhPWazkkSllp99LCW cGR1nt9FqX9gfoDUwkIl1 TGVrSBVvJCBdu3VqDIJpj g90VDEaGzmzuWueDSCiDi 9fUy4lISUxfrBuWMX2FaF GMA2unzlqjCGzgAuqlu7w XHBsYWluXGYyXGZzMjJcb GFuZzEwMzNcaGljaFxmMl mwLsPyOINeUAdfA7lkWwC cZnMyMlxwYXJ9 Lab Interpretation (test Abnormal code = 19612-9) [facility] (Percy, DLCO, LV) 2021-12-15 00:00:00 Test Item Value Reference Range Interpretation Comments FVC (L) pre (test code = 1.112 L 2.256-3.497 L 9507) FEV1 (L) pre (test code 0.400 L 1.693-2.742 L = 9505) FEV1/FVC (%) pre (test 35.933 % 68.052-87.641 L code = 9509) DLCO_SB ml/(min*mmHg) 5.682 See_Comment L [Auto mated message] (test code = 9515) The syste m which generated this result transmitted ref erence range: 6.297 - 26.463 ml/(min*mmHg). The reference range was not used to int erpret this result as normal/abnormal . DLCOc_SB ml/(min*mmHg) 5.831 See_Comment L [Aut omated message] (test code = 9516) The syste m which generated this result transmitted ref erence range: 6.297 - 26.463 ml/(min*mmHg). The reference range was not used to int erpret this result as normal/abnormal . TLC (L) (test code = 6.976 L 3.387-5.361 H 9513) RV (L) (test code = 5.736 L 1.188-2.339 H 9514) RV/TLC (%) (test code = 82.223 % 30.110-49.290 H 9517) FVC (% pred) pre (test 39 % code = 9520) FEV1 (%pred) pre (test 18 % code = 9518) FEV1/FVC (% pred) pre 46 % (test code = 9522) TLC (% pred) (test code 159 % = 9526) RV (% pred) (test code = 325 % 9527) RV/TLC (% pred) (test 207 % code = 9528) DLCO_SB (% pred) (test 35 % code = 9529) DLCOc_SB (% pred) (test 36 % code = 9530) Lab Interpretation (test Abnormal code = 39547-6) [facility] COVID-19 (ROSE-CoV-2) PCR Txswywczacsw3746-75-75 23:37:30 Test Item Value Reference Interpretation Comments Range COVID19 SARS Pre-Out of OR Procedure Indication (test code = 25555) COVID19 SARS Result Not Detected Not Detected (test code = 36676-3) COVID19 SARS SARS-CoV-2 NOT Detected. Interpretation (test Reference Range: Not code = 65021) Detected Methodology: The Humphrey RealTime SARS-CoV-2 assay is a qualitative real-time reverse welt rougher polymerase chain reaction (printing assistant-PCR) test to detect RNA from SARS-CoV-2 in nasal, nasopharyngeal and oropharyngeal swabs from patients with signs and symptoms of infection who are suspected of COVID-19 by their health care provider. The Humphrey RealTime SARS-CoV-2 performed on the Auramist System is a dual target assay with primers and probes for the RdRp and N genes. Results must be interpreted within the context of all relevant clinical and laboratory findings, and epidemiological risk factors. Positive results are indicative of the presence of SARS-CoV-2 RNA; clinical correlation with patient history and other diagnostic information is necessary to determine patient infection status. Positive results do not rule out bacterial infection or co-infection with other viruses. Negative results do not preclude SARS-CoV-2 infection and should not be used as the sole basis for patient management decisions. The Humphrey RealTime SARS-CoV-2 assay is for in vitro diagnostic use under FDA Emergency Use Authorization only. Testing is limited to laboratories certified under the Clinical Laboratory Improvement Amendments of 1988 (CLIA), 42U.S.C. 263a, to perform high complexity tests. The Test was performed by the CLIA-certified, high-complexity Molecular Diagnostics Laboratory (MDL) at [facility] under the Food and Drug Administration (FDA) s Emergency Use Authorization. Factsheet for patients: https://www.mdanderson.org/ AbbottFactSheetPatientsFact sheet for healthcare providers: https://www.mdanderson.org/ AbbottFactSheetHCP Test performed by:[facility] Molecular Diagnostic [address] [place] [address] [facility] HospitalCoccidioides [id number] 21:25:30 Test Item Value Reference Range Interpretation Comments Cocci Comp Fix-Nguyen Negative Negative (test code = 5096-3) Cocci IgG-[place] Negative Negative (test code = 87972-0) Cocci IgM-[place] Negative Negative A negative co mplement (test code = fixation and 27511-8) immunodiffusion (CompF/ImmD iff) result dumont s not exclude the hector gnosis ofcoccidioidomy cosis. Repeat testing by CompF/ImmDiff i n 2-3weeks if clinically i ndicated. Test Performed by:[facility] [address] [place], [place] [address]Amu Director: James Wu M.D. Ph. D.; CLIA# [id number] [facility] HospitalHistoplasma Ab Feumna7600-37-60 17:45:02 Test Item Value Reference Range Interpretation Comments Histo Immuno Negative Negative A negative comp lement Ab-[place] (test code fixation and = 11067-3) immunodiffusion (CF/ID)result d oes not exclude the hector gnosis of histoplasmosis. Repeat testing by CF/I D in 1-2 weeks if clinicallyindic ated. Test Performed by:[facility] [address] [place], [place] [address]Rbs Direct or: Jerry Wu M.D. Ph.D.; CLIA# [id number] Histo Mycel Negative Negative Ab-[place] (test code = 00338-2) Histo Yeast Negative Negative Ab-[place] (test code = 58539-3) [facility] HospitalT-spot Wikiynnqnccf8940-14-39 17:15:54 Test Item Value Reference Range Interpretation Comments Tspot TB Negative SeeBelow Normal Value: N egativeA (test code = negative test r esult 7663) does not exclud e the possibility toby xposure to or infection with Mycobacterium tuberculosis (M.tuberculosis ). Patients with r ecent exposure to TBi nfected individuals exh ibiting a negative T-SP OT.TB resultshould be considered for retesting withi n 6 weeks or ifothe r relevant clinic al symptoms indica te. Results fromT-S POT.TB testing must be used in conjunction wit h eachindividual' s epidemiological history, curren t medicalstatus, and results of othe r diagnostic eval uations. TheT-SPOT.TB t est is qualitative and results are reported aspositive, bor derline or negative, gi otilia that the testcontrol s perform as expe cted. In line with the C enters forDisease Cont rol and Prevention's 20 10 recommendation toreport quantitative measurements al ongside the qualitative result, the laboratory provides spot counts forinformationa l purposes only. The T-SPOT.TB test should notbe interpret ed as a quantitative te st. Tspot TB 0 Panel A (test code = 9397) Tspot TB 0 Panel B (test code = 9398) Tspot TB Pos Passed Lab test perfor med Cont (test by:Lab Mnemonic : code = 9399) [id number] DIAGNO STICS TB, [id number] [employer] [facility] N [id number] MARIEL CONTRERAS MD,PHD Tspot TB NIL Passed Cont (test code = 9396) ZAKIA (test If scheduling this code = ZAKIA) lab at one of the following locations, it can only be collected on Tuesday, Tuesday, and Tuesday due to collection/process ing restrictions:[facility] DIAG LAB [facility] DIAG LAB [facility] DIAG LAB [facility] CTR [facility] HospitalCryptococcal Ag Serum Path Review 2021-12-10 20:55:17Crypto Ag, Serum PRReviewed and Electronically signed by Pathologist:WILL HAWKINS MD #[id number] [facility] CAN[facility]ER CENTERUnMethodist Specialty and Transplant HospitalHepatitis B Core Total [id number] 16:21:33 Test Item Value Reference Range Interpretation Comments HBc Total Ab-[place] Negative Negative Test Perf ormed by:[place] (test code = [facility] [place] - [address]-3) [facility] [id number] [place], [place] [address]Log Director: James Wu M.D. Ph. D.; CLIA# [id number] [facility] HospitalHepatitis B Surface Ag w/Confirm 2021-12-10 16:04:05 Test Item Value Reference Range Interpretation Comments Hep Bs Ag-[place] Negative Negative Test Perform ed by:[place] (test code = [facility] [place] - 5196-1) [facility] i[facility] [id number] [place], [place] [address]Mtr Director: James Wu M.D. Ph. D.; CLIA# [id number] [facility] HospitalTMP HCV Ab Path [id number] 13:22:12 Test Item Value Reference Range Interpretation Comments HCV Ab Path There is NO Interp (test serologic code = 8923) evidence of ____EDUARDA CARBAJAL MD Hepatitis C - 63565Zpawlzgg by: virus antibody. EDUARDA PERSON MD - [id number] D ate/Time: 12.10.2021 8:22 AM CDT Transcribed Yousif e/Time: 12.10.2021 8:22 AM CDTElectronical ly Signed By: EDUARDA CARBAJAL MD - [id number] on 8:22 AM C [facility] HospitalHepatitis C Virus [id number] 23:46:16 Test Item Value Reference Range Interpretation Comments HCVAb. (test Non Reactive Non Reactive Antibody detect ion in the code = 5762) immunocompromis ed and immunosuppresse d population may be delayed or absent entirely. There fore serial testing, correl ation with other clinical findings, and supplementa l testing (if available) should be taken into cons ideration when interpreti ng the results.Perform ed at:[facility] Blood Donor [id number] [facility], [place], [place] [address] [facility] HospitalCryptococcal Antigen, Serum 2021-12-09 20:05:59 Test Item Value Reference Range Interpretation Comments Cryptococcal Ag Screen Serum Interp Negative Negative (test code = 28381-8) [facility] HospitalTSH2022-04-12 23:58:49 Test Item Value Reference Range Interpretation Comments TSH (test code = 0.47 See_Comment [Automated message] The 03871-4) system which ge nerated this result transmit milana reference range : 0.27 - 4.20 mcunit/mL. The reference range was not used to interpr et this result as kirstin l/abnormal. [facility] HospitalHepatitis B Surface [id number] 23:47:01 Test Item Value Reference Range Interpretation Comments HBsAg Received (test See Note HBsAg w as sent to a code = 49580) reference lab for testing. Expec t results on Hepa titis B Surface Antigen w/ Confirm within 96 hours. [facility] HospitalHepatitis B Total Ig Core Ab (SCREENING) (anti-HBc total Ig; HBcAb total Ig)2021-12-08 23:47:00 Test Item Value Reference Range Interpretation Comments HBcAb Received (test See Note HBcAb w as sent to a code = 31931) reference lab for testing. Expec t results on Hepa titis B Core Total Ab w ithin 96 hours. [facility] HospitalRAD, CHEST, PA OR AP, 1 VIEW 2017-08-01 09:05:00Reason for exam:->post-opFINAL REPORT Chest one view. Clinical history: post-op Comparison: July 28, 2017 Discussion: A frontal chest is provided. Cardiomediastinal contours are unchanged. Right IJ line has been removed. There is patchy retrocardiac opacity is slightly improved since the previousexam. A small left effusion is present. No pneumothorax. Signed: Hemant Paige Verified Date/Time: 08/01/2017 09:05:03 Reading Location: [facility] Radiology Reading Room MAGNESIUM 2017-08-01 06:58:00 Test Item Value Reference Range Interpretation Comments MAGNESIUM (BEAKER) (test code = 1.8 mg/dL 1.6-2.6 627) CBC W/PLT COUNT & AUTO [id number] 05:44:00 Test Item Value Reference Range Interpretation [...] = 2801) CBC W/PLT COUNT & AUTO [id number] 07:13:00 Test Item Value Reference Range Interpretation [...] 0-1 PERCENT (BEAKER) (test code = 2801) [id number] 04:08:00 Test Item Value Reference Range Interpretation Comments MAGNESIUM (BEAKER) (test code = 1.3 mg/dL 1.6-2.6 L 627) BASIC METABOLIC [id number] 04:08:00 Test Item Value Reference Range Interpretation [...] 697) EGFR (BEAKER) (test 82 mL/min/1.73 ESTIMA MILANA GFR IS code = 1092) sq m NOT ACCURATE CREATININE CLEARANCE IN PREDICTING GLOMERULAR FILTRATION RATE . ESTIMATED GFR I S NOT APPLICABLE FOR DIALYSIS PATIEN TS. POCT-GLUCOSE [id number] 12:53:00 Test Item Value Reference Range Interpretation Comments POC-GLUCOSE METER 192 mg/dL 70-110 H TESTED AT [facility] 6720 (BEAKER) (test code = KARINA Betts [facility] 1538) [address] POCT-GLUCOSE [id number] 07:54:00 Test Item Value Reference Range Interpretation Comments POC-GLUCOSE METER 129 mg/dL 70-110 H TESTED AT [facility] 6720 (BEAKER) (test code = [facility]ane [facility] 1538) [address] BASIC METABOLIC [id number] 05:37:00 Test Item Value Reference Range Interpretation [...] 697) EGFR (BEAKER) (test 75 mL/min/1.73 ESTIMA MILANA GFR IS code = 1092) sq m NOT ACCURATE CREATININE CLEARANCE IN PREDICTING GLOMERULAR FILTRATION RATE . ESTIMATED GFR I S NOT APPLICABLE FOR DIALYSIS PATIEN TS. CBC W/PLT COUNT & AUTO [id number] 05:07:00 Test Item Value Reference Range Interpretation [...] 0-1 PERCENT (BEAKER) (test code = 2801) POCT-GLUCOSE [id number] 21:03:00 Test Item Value Reference Range Interpretation Comments POC-GLUCOSE METER 239 mg/dL 70-110 H TESTED AT [place] [address] ([facility]) (test code = [facility] 1538) [address] POCT-GLUCOSE [id number] 17:20:00 Test Item Value Reference Range Interpretation Comments POC-GLUCOSE METER 201 mg/dL 70-110 H TESTED AT [place] [address] ([facility]) (test code = [facility] 1538) [address] HEMOGLOBIN AND [id number] 16:41:00 Test Item Value Reference Range Interpretation Comments HEMOGLOBIN (BEAKER) (test code = 9.8 GM/DL 11.2-15.7 L 410) HEMATOCRIT (BEAKER) (test code = 29.3 % 34.1-44.9 L 411) Draw after transfusion has been completed.POCT-GLUCOSE [id number] 12:59:00 Test Item Value Reference Range Interpretation Comments POC-GLUCOSE METER 133 mg/dL 70-110 H TESTED AT [place] [address] ([facility]) (test code = [facility] 1538) [address] URINE [id number] 11:53:00 Test Item Value Reference Range Interpretation Comments CULTURE ([facility]) (test code = 1095) No growth POCT-GLUCOSE [id number] 09:34:00 Test Item Value Reference Range Interpretation Comments POC-GLUCOSE METER 97 mg/dL 70-110 TESTED AT [facility] 6720 (BEAKER) (test code = [place] [address] 1538) CBC W/PLT COUNT & AUTO [id number] 05:55:00 Test Item Value Reference Range Interpretation [...] (BEAKER) (test code = 2801) BASIC METABOLIC [id number] 05:53:00 Test Item Value Reference Range Interpretation [...] 697) EGFR (BEAKER) (test 81 mL/min/1.73 ESTIMA MILANA GFR IS code = 1092) sq m NOT ACCURATE CREATININE CLEARANCE IN PREDICTING GLOMERULAR FILTRATION RATE . ESTIMATED GFR I S NOT APPLICABLE FOR DIALYSIS PATIEN TS. POCT-GLUCOSE [id number] 21:23:00 Test Item Value Reference Range Interpretation Comments POC-GLUCOSE METER 142 mg/dL 70-110 H TESTED AT [facility] 6720 (BEAKER) (test code = [place] 1538) [address] RAD, CHEST, 1 VIEW, NON [id number] 15:31:00Reason for exam:->post ct removalFINAL REPORT TECHNIQUE: [...] are seen in the spine. Signed: Augustina López Verified Date/Time: 07/28/2017 15:31:00 Reading Location: [facility] Radiology Reading Room POCT-GLUCOSE [id number] 12:12:00 Test Item Value Reference Range Interpretation Comments POC-GLUCOSE METER 100 mg/dL 70-110 TESTED AT [facility] 67 ([facility]) (test code = [place] [facility] 1538) [address] POCT-GLUCOSE [id number] 06:41:00 Test Item Value Reference Range Interpretation Comments POC-GLUCOSE METER 143 mg/dL 70-110 H TESTED AT [place] [address] ([facility]) (test code = [place] [facility] [facility] 1538) [address] RAD, CHEST, 1 VIEW, NON [id number] 05:13:00Reason for exam:->Post opShould this be performed [...] MDReport Verified Date/Time: 07/28/2017 05:13:19 Reading Location: [facility] B1 C013Y CT Body Reading Room BLOOD GAS, [id number] 05:03:00 Test Item Value Reference Range Interpretation Comments PH ARTERIAL ([facility]) (test code = 7.39 7.35-7.45 383) PCO2 [...] (BEAKER) (test code = 1819) 36.0 % [id number] 04:52:00 Test Item Value Reference Range Interpretation [...] is 2.5-3.5 for patients with mechanical heart valves.[id number] 04:39:00 Test Item Value Reference Range Interpretation Comments MAGNESIUM (BEAKER) (test code = 1.9 mg/dL 1.6-2.6 627) BASIC METABOLIC [id number] 04:39:00 Test Item Value Reference Range Interpretation [...] 697) EGFR (BEAKER) (test 73 mL/min/1.73 ESTIMA MILANA GFR IS code = 1092) sq m NOT ACCURATE CREATININE CLEARANCE IN PREDICTING GLOMERULAR FILTRATION RATE . ESTIMATED GFR I S NOT APPLICABLE FOR DIALYSIS PATIEN TS. CBC W/PLT COUNT & AUTO [id number] 04:24:00 Test Item Value Reference Range Interpretation [...] 0-1 PERCENT (BEAKER) (test code = 2801) [id number] 01:03:00 Test Item Value Reference Range Interpretation Comments POTASSIUM (BEAKER) (test code = 4.0 meq/L 3.5-5.1 379) [id number] 01:03:00 Test Item Value Reference Range Interpretation Comments MAGNESIUM (BEAKER) (test code = 2.0 mg/dL 1.6-2.6 627) POCT-GLUCOSE [id number] 01:01:00 Test Item Value Reference Range Interpretation Comments POC-GLUCOSE METER 150 mg/dL 70-110 H TESTED AT [facility] 6720 (BEAKER) (test code = [place] 1538) [address] HEMOGLOBIN AND [id number] 00:51:00 Test Item Value Reference Range Interpretation Comments HEMOGLOBIN (BEAKER) (test code = 8.3 GM/DL 11.2-15.7 L 410) HEMATOCRIT (BEAKER) (test code = 24.0 % 34.1-44.9 L 411) CALCIUM, [id number] 00:48:00 Test Item Value Reference Range Interpretation Comments CALCIUM IONIZED (BEAKER) (test 1.25 mmol/L 1.12-1.27 code = 698) PH, BLOOD (BEAKER) (test code = 7.39 1810) BLOOD GAS, [id number] 20:03:00 Test Item Value Reference Range Interpretation [...] (test code = 1819) 32.0 % POCT-GLUCOSE [id number] 18:26:00 Test Item Value Reference Range Interpretation Comments POC-GLUCOSE METER 169 mg/dL 70-110 H TESTED AT [facility] 6720 (BEAKER) (test code = [place] 1538) [address] BLOOD GAS, [id number] 16:32:00 Test Item Value Reference Range Interpretation [...] code = 1819) 40.0 % HEMOGLOBIN AND [id number] 15:45:00 Test Item Value Reference Range Interpretation Comments HEMOGLOBIN (BEAKER) (test code = 8.9 GM/DL 11.2-15.7 L 410) HEMATOCRIT (BEAKER) (test code = 25.6 % 34.1-44.9 L 411) FACTOR 10 [id number] 15:30:00 Test Item Value Reference Range Interpretation Comments FACTOR X ACTIVITY (BEAKER) (test code 79.0 % 70.0-120.0 = 662) [id number] 13:47:00 Test Item Value Reference Range Interpretation Comments FIBRINOGEN LEVEL (BEAKER) (test 567 mg/dl 225-434 H code = 658) PROTHROMBIN [id number] 13:47:00 Test Item Value Reference Range Interpretation Comments PROTIME (BEAKER) (test code = 17.5 seconds 11.7-14.7 H 759) INR (BEAKER) (test code = 370) 1.4 <=5.9 RECOMMENDED COUMADIN/WARFARIN INR THERAPY RANGESSTANDARD DOSE: 2.0 - 3.0 Includes: PROPHYLAXIS forvenous thrombosis, systemic embolization; TREATMENT for venous thrombosis and/or pulmonary embolus.HIGH RISK: Target INR is 2.5-3.5 for patients with mechanical heart valves.[id number] 13:47:00 Test Item Value Reference Range Interpretation Comments PARTIAL THROMBOPLASTIN TIME 35.0 seconds 22.5-36.0 (BEAKER) (test code = 760) RAD, CHEST, 1 VIEW, NON [id number] 13:16:00Reason for exam:->Post OpShould this be performed [...] Status post median sternotomy. Signed: Hemant Paige [facility] Verified Date/Time: 07/27/2017 13:16:03 Reading Location: [facility] B1 [id number] Consult Reading Room Electronicallysigned by: [...] = 1414) CBC W/PLT COUNT & AUTO [id number] 12:37:00 Test Item Value Reference Range Interpretation [...] 0-1 PERCENT (BEAKER) (test code = 2801) [id number] 12:19:00 Test Item Value Reference Range Interpretation Comments MAGNESIUM (BEAKER) (test code = 2.9 mg/dL 1.6-2.6 H 627) COMPREHENSIVE METABOLIC [id number] 12:19:00 Test Item Value Reference Range Interpretation [...] 347) EGFR (BEAKER) (test 77 mL/min/1.73 ESTIMA MILANA GFR IS code = 1092) sq m NOT ACCURATE CREATININE CLEARANCE IN PREDICTING GLOMERULAR FILTRATION RATE . ESTIMATED GFR I S NOT APPLICABLE FOR DIALYSIS PATIEN TS. LACTIC ACID, ARTERIAL, WHOLE [id number] 12:14:00 Test Item Value Reference Range Interpretation Comments LACTATE BLOOD ARTERIAL (2) 0.9 mmol/L 0.5-2.2 (BEAKER) (test code = 2874) Effective 12/31/2015: Units/Reference Range ChangeNew: 0.5-2.2 mmol/L Previous: 5-20 mg/dLOXYGEN SATURATION, [id number] 11:46:00 Test Item Value Reference Range Interpretation Comments O2 SATURATION (MEASURED) (BEAKER) 81.7 % (test code = 1455) BLOOD GAS, [id number] 11:44:00 Test Item Value Reference Range Interpretation [...] code = 1819) 60.0 % SODIUM NA-STAT [id number] 11:44:00 Test Item Value Reference Range Interpretation Comments SODIUM (BEAKER) (test code = 381) 130 meq/L 135-148 L GLUCOSE-STAT [id number] 11:44:00 Test Item Value Reference Range Interpretation Comments GLUCOSE RANDOM (BEAKER) (test code 194 mg/dL 70-110 H = 652) HGB/HCT (H&H) - STAT [id number] 11:44:00 Test Item Value Reference Range Interpretation Comments HEMOGLOBIN (BEAKER) (test code = 8.1 g/dL 12.0-15.0 L 410) HEMATOCRIT (BEAKER) (test code = 24.0 % 36.0-45.0 L 411) FILTER IONIZED [id number] 11:44:00 Test Item Value Reference Range Interpretation Comments FILTER IONIZED CALCIUM (BEAKER) 1.35 nnol/L (test code = 1854) Reference Range: No NormalsPOTASSIUM-STAT [id number] 11:43:00 Test Item Value Reference Range Interpretation [...] MM 55.0-65.0 (test code = 1413) PLATELET [id number] 11:08:00 Test Item Value Reference Range Interpretation Comments PLATELET COUNT (BEAKER) (test 142 K/CU MM 150-450 L code = 756) CALCIUM, [id number] 10:35:00 Test Item Value Reference Range Interpretation Comments CALCIUM IONIZED (BEAKER) (test 0.91 mmol/L 1.12-1.27 L code = 698) PH, BLOOD (BEAKER) (test code = 7.31 1810) BLOOD GAS, [id number] 10:35:00 Test Item Value Reference Range Interpretation [...] code = 1819) 100.0 % SODIUM NA-STAT [id number] 10:35:00 Test Item Value Reference Range Interpretation Comments SODIUM (BEAKER) (test code = 381) 130 meq/L 135-148 L GLUCOSE-STAT [id number] 10:35:00 Test Item Value Reference Range Interpretation Comments GLUCOSE RANDOM (BEAKER) (test code 194 mg/dL 70-110 H = 652) HGB/HCT (H&H) - STAT [id number] 10:35:00 Test Item Value Reference Range Interpretation Comments HEMOGLOBIN (BEAKER) (test code = 10.3 g/dL 12.0-15.0 L 410) HEMATOCRIT (BEAKER) (test code = 30.0 % 36.0-45.0 L 411) POTASSIUM-STAT [id number] 10:34:00 Test Item Value Reference Range Interpretation Comments POTASSIUM (BEAKER) (test code = 5.1 meq/L 3.6-5.5 379) [id number] 10:26:00 Test Item Value Reference Range Interpretation Comments ACTIVATED CLOTTING TIME 131 sec TEST ED AT [place] [address] (BEAKER) (test code = [place] [address]) [address] [id number] 10:26:00 Test Item Value Reference Range Interpretation Comments ACTIVATED CLOTTING TIME 521 sec TEST ED AT [place] [address] (BEAKER) (test code = [place] [address]) [address] [id number] 10:26:00 Test Item Value Reference Range Interpretation Comments ACTIVATED CLOTTING TIME 521 sec TEST ED AT [place] [address] ([facility]) (test code = KARINA Betts [place] [address]) [address] [id number] 10:26:00 Test Item Value Reference Range Interpretation Comments ACTIVATED CLOTTING TIME 505 sec TEST ED AT [place] [address] ([facility]) (test code = KARINA Betts [facility] [address]) [address] [id number] 10:17:00 Test Item Value Reference Range Interpretation Comments FIBRINOGEN LEVEL ([facility]) (test 536 mg/dl 225-434 H code = 658) [id number] 10:17:00 Test Item Value Reference Range Interpretation Comments PARTIAL THROMBOPLASTIN TIME 38.7 seconds 22.5-36.0 H ([facility]) (test code = 760) PROTHROMBIN [id number] 10:16:00 Test Item Value Reference Range Interpretation Comments PROTIME ([facility]) (test code = 18.8 seconds 11.7-14.7 H 759) INR ([facility]) (test code = 370) 1.6 <=5.9 RECOMMENDED COUMADIN/WARFARIN INR THERAPY RANGESSTANDARD DOSE: 2.0 - 3.0 Includes: PROPHYLAXIS forvenous thrombosis, systemic embolization; TREATMENT for venous thrombosis and/or pulmonary embolus.HIGH RISK: Target INR is 2.5-3.5 for patients with mechanical heart valves.PLATELET AGGREGATION: FUNCTION SCREEN 2017-07-27 10:14:00 Test Item Value Reference Range Interpretation Comments WEAK ADP 51 % 60-91 L RESULT([facility]) (test code = 2135) PLATELET FUNCTION 50-59% indicates mild SCREEN INTERP platelet dysfunction ([facility]) (test code = 2173) [id number] Yuri Quijano M.D. ([facility]) (test code = (electonic signature) 9235) PLATELET COUNT AGG 410 K/CU MM 150-450 ([facility]) (test code = 2656) for patients on clopidogrel in past two weeksCALCIUM, [id number] 09:46:00 Test Item Value Reference Range Interpretation Comments CALCIUM IONIZED ([facility]) (test 1.41 mmol/L 1.12-1.27 H code = 698) PH, BLOOD ([facility]) (test code = 7.30 1810) BLOOD GAS, [id number] 09:45:00 Test Item Value Reference Range Interpretation [...] code = 1819) 100.0 % SODIUM NA-STAT [id number] 09:45:00 Test Item Value Reference Range Interpretation Comments SODIUM (BEAKER) (test code = 381) 124 meq/L 135-148 L POTASSIUM-STAT [id number] 09:45:00 Test Item Value Reference Range Interpretation Comments POTASSIUM (BEAKER) (test code = 5.8 meq/L 3.6-5.5 H 379) GLUCOSE-STAT [id number] 09:45:00 Test Item Value Reference Range Interpretation Comments GLUCOSE RANDOM (BEAKER) (test code 172 mg/dL 70-110 H = 652) HGB/HCT (H&H) - STAT [id number] 09:45:00 Test Item Value Reference Range Interpretation Comments HEMOGLOBIN (BEAKER) (test code = 8.6 g/dL 12.0-15.0 L 410) HEMATOCRIT (BEAKER) (test code = 25.0 % 36.0-45.0 L 411) BLOOD GAS, [id number] 09:31:00 Test Item Value Reference Range Interpretation [...] code = 1819) 75.0 % SODIUM NA-STAT [id number] 09:31:00 Test Item Value Reference Range Interpretation Comments SODIUM (BEAKER) (test code = 381) 124 meq/L 135-148 L GLUCOSE-STAT [id number] 09:31:00 Test Item Value Reference Range Interpretation Comments GLUCOSE RANDOM (BEAKER) (test code 162 mg/dL 70-110 H = 652) HGB/HCT (H&H) - STAT [id number] 09:31:00 Test Item Value Reference Range Interpretation Comments HEMOGLOBIN (BEAKER) (test code = 8.8 g/dL 12.0-15.0 L 410) HEMATOCRIT (BEAKER) (test code = 26.0 % 36.0-45.0 L 411) POTASSIUM-STAT [id number] 09:31:00 Test Item Value Reference Range Interpretation Comments POTASSIUM (BEAKER) (test code = 6.2 meq/L 3.6-5.5 HH 379) BLOOD GAS, [id number] 09:09:00 Test Item Value Reference Range Interpretation Comments PH ARTERIAL (BEAKER) (test code = 7.46 7.35-7.45 H 383) PCO2 ARTERIAL (BEAKER) (test code 32 mmHg 35-45 L = 384) PO2 ARTERIAL (BEAKER) (test code 355 mmHg 80-90 H = 385) O2 SATURATION ARTERIAL (BEAKER) 99.8 % 96.0-97.0 H (test code = 386) HCO3 ARTERIAL (BEAKER) (test code 24 mmol/L -29 = 388) BASE EXCESS ARTERIAL (BEAKER) -1.6 mmol/L -2.0-3.0 (test code = 387) PATIENT TEMPERATURE (BEAKER) 30.3 C (test code = 1818) FIO2 (BEAKER) (test code = 1819) 70.0 % GLUCOSE-STAT [id number] 09:09:00 Test Item Value Reference Range Interpretation Comments GLUCOSE RANDOM (BEAKER) (test code 150 mg/dL 70-110 H = 652) POTASSIUM-STAT [id number] 09:08:00 Test Item Value Reference Range Interpretation Comments POTASSIUM (BEAKER) (test code = 5.5 meq/L 3.6-5.5 379) HGB/HCT (H&H) - STAT [id number] 09:08:00 Test Item Value Reference Range Interpretation Comments HEMOGLOBIN (BEAKER) (test code = 7.6 g/dL 12.0-15.0 L 410) HEMATOCRIT (BEAKER) (test code = 22.0 % 36.0-45.0 L 411) SODIUM NA-STAT [id number] 09:08:00 Test Item Value Reference Range Interpretation Comments SODIUM (BEAKER) (test code = 381) 124 meq/L 135-148 L POTASSIUM-STAT [id number] 08:00:00 Test Item Value Reference Range Interpretation Comments POTASSIUM (BEAKER) (test code = 3.8 meq/L 3.6-5.5 379) CALCIUM, [id number] 08:00:00 Test Item Value Reference Range Interpretation Comments CALCIUM IONIZED (BEAKER) (test 1.15 mmol/L 1.12-1.27 code = 698) PH, BLOOD (BEAKER) (test code = 7.38 1810) BLOOD GAS, [id number] 08:00:00 Test Item Value Reference Range Interpretation [...] code = 1819) 100.0 % SODIUM NA-STAT [id number] 08:00:00 Test Item Value Reference Range Interpretation Comments SODIUM (BEAKER) (test code = 381) 130 meq/L 135-148 L GLUCOSE-STAT [id number] 08:00:00 Test Item Value Reference Range Interpretation Comments GLUCOSE RANDOM (BEAKER) (test code 134 mg/dL 70-110 H = 652) HGB/HCT (H&H) - STAT [id number] 08:00:00 Test Item Value Reference Range Interpretation Comments HEMOGLOBIN (BEAKER) (test code = 10.4 g/dL 12.0-15.0 L 410) HEMATOCRIT (BEAKER) (test code = 31.0 % 36.0-45.0 L 411) RAD, CHEST, 1 VIEW, NON [id number] 07:24:00Reason for exam:->pre opShould this be performed at the bedside?->YesFINAL REPORT Chest one view. Clinical history: pre op Comparison: No priors Discussion: A frontal chest is provided. The cardiac and mediastinal contours are normal. There is no pneumothorax, henrietta pulmonary edema, consolidation or significant pleural effusion. The bony structures are unremarkable. Signed: Hemant Paige Verified Date/Time: 07/27/2017 07:24:49 ReadingLocation: [facility] Radiology Reading Room Electronically signed by: HEMANT PAIGE M.D. on 07:24 [id number] 04:33:00 Test Item Value Reference Range Interpretation [...] 2.5-3.5 for patients with mechanical heart valves.PROTHROMBIN [id number] 04:32:00 Test Item Value Reference Range Interpretation [...] 0-0 (BEAKER) (test code = 413) HEMOGLOBIN [id number] 20:12:00 Test Item Value Reference Range Interpretation Comments HEMOGLOBIN A1C (BEAKER) (test code = 6.6 % 4.3-6.1 H 368) PLATELET AGGREGATION: FUNCTION [id number] 18:20:00 Test Item Value Reference Range Interpretation Comments WEAK ADP 43 % 60-91 L RESULT(BEAKER) (test code = 2135) PLATELET FUNCTION 40-49% indicates SCREEN INTERP moderate platelet (BEAKER) (test code = dysfunction 2173) [id number] Yuri Quijano M.D. (BEAKER) (test code = (electonic signature) 5090) PLATELET COUNT AGG 417 K/CU MM 150-450 (BEAKER) (test code = 9955) for patients on clopidogrel in past two weeksLIPID [id number] 13:14:00 Test Item Value Reference Range Interpretation [...] 130-159 High 160-189 Very High >=190BASIC METABOLIC [id number] 09:12:00 Test Item Value Reference Range Interpretation [...] 697) EGFR (BEAKER) (test 68 mL/min/1.73 ESTIMA MILANA GFR IS code = 1092) sq m NOT ACCURATE CREATININE CLEARANCE IN PREDICTING GLOMERULAR FILTRATION RATE . ESTIMATED GFR I S NOT APPLICABLE FOR DIALYSIS PATIEN TS. HEPATIC FUNCTION [id number] 09:12:00 Test Item Value Reference Range Interpretation [...] slightly (test code = 347) hemolyzed PROTHROMBIN [id number] 05:58:00 Test Item Value Reference Range Interpretation [...] % 0-1 PERCENT (BEAKER) (test code = 0733)
[2022-03-21] MEDS ORDERED: FENTANYL CITR 100 MCG/2 ML ONE (18:50)
[2022-03-21] MEDS ORDERED: MIDAZOLAM HCL 2 MG/2 ML INJ ONE (18:51)
[2022-03-21] MEDS ORDERED: KETAMINE HCL 500 MG/5 ML VIAL ONE (18:57)
[2022-03-21] MEDS ORDERED: NA CHLORIDE 0.9% 1,000 ML ONE (18:57)
[2022-03-21] MEDS ORDERED: ONDANSETRON 4 MG/2 ML VIAL ONE (18:58)
--- NOTE | 2022-03-21 20:13 | RAD REPORT ---
EXAM DESCRIPTION: RAD - Ankle Right 3 View - 03/21/2022 7:56 pm CLINICAL HISTORY: DEFORMITY COMPARISON: CT ABD PELVIS W CONTRAST dated 12/25/2014Head C Spine Mpr Wo Con dated 10/10/2018No compar isons FINDINGS/IMPRESSION: Probably trimalleolar fracture though the posterior malleolus only looks abnorm al on one-view. The patient has undergone a closed reduction. No priors available for comparison. The distal fibular fracture extends to the tibiofibular syndesmosis in has approximately 1/2 shaft width of maximal displacement. The medial malleolar fracture is mildly displaced laterally.
[2022-03-21] MEDS ORDERED: HYDROMORPHONE HCL 1 MG/ML INJ ONE (21:03)
--- NOTE | 2022-03-21 21:37 | EDPHYS ---
Physician Documentation [facility] Name: Mallory Nash Age: 61 yrs Sex: Female : 1960 Arrival Date: 03/21/2022 Time: 18:27 Bed 5 Private MD: ED Physician Natty Roland HPI: 03/21 19:31 This 61 yrs old Female presents to ER via Wheelchair with complaints of Fall Injury, sd2 Leg Injury. 19:31 61 yo F presents with CC of mechanical fall with associated R ankle injury and sd2 deformity. She denies any head injury or LOC. No blood thinners. Currently on chemo for lung cancer and states weakness causes recurrent falls. Denies any headache, CP, SOB, vomiting.. Historical: - Allergies: 18:58 Chlorhexidine Gluconate; ph - PMHx: 18:58 chronic back pain; COPD; Depression; Hypertension; cancer; ph - PSHx: 18:58 Appendectomy; Coronary artery bypass graft; ph - Immunization history:: Adult Immunizations unknown. - Immunization history: Last tetanus immunization: unknown. - Social history:: Smoking status: unknown. ROS: 19:31 Constitutional: Negative for fever, chills, and weight loss, Cardiovascular: Negative sd2 for chest pain, palpitations, and edema, Respiratory: Negative for shortness of breath, cough, wheezing. Abdomen/GI: Negative for abdominal pain, nausea, vomiting, diarrhea. Back: Negative for injury and pain, MS/Extremity: Positive for injury and deformity. Skin: Negative for injury, rash, and discoloration, Neuro: Negative for headache, numbness and tingling. Exam: 19:31 Constitutional: This is a well developed, well nourished patient who is awake, alert, sd2 and in no acute distress. Head/Face: Normocephalic, atraumatic. Eyes: EOMI, normal conjunctiva bilaterally Chest/axilla: Normal chest wall appearance and motion. Nontender with no deformity. Cardiovascular: Regular rate and rhythm with a normal S1 and S2. No gallops, murmurs, or rubs. 2+ distal pulses. Respiratory: Lungs have equal breath sounds bilaterally, clear to auscultation and percussion. No rales, rhonchi or wheezes noted. No increased work of breathing, no retractions or nasal flaring. Abdomen/GI: Soft, non-tender, with normal bowel sounds. No guarding or rebound. No evidence of tenderness throughout. Skin: Warm, dry with normal turgor. Normal color with no rashes, no lesions, and no evidence of cellulitis. MS/ Extremity: Obvious R ankle deformity with tenting at the medial malleolus. 2+ DP pulse present with sensation intact and good capillary refill. Psych: Awake, alert, with orientation to person, place and time. Behavior, mood, and affect are within normal limits. Vital Signs: 18:36 BP 119 / 76; Pulse 92; Resp 18; Pulse Ox 99% on R/A; ph 18:36 BP 119 / 76; Pulse 92; Resp 18; Pulse Ox 100% on R/A; jd3 18:40 Weight 52.5 kg (M); jd3 18:45 BP 103 / 63; Pulse 89; Resp 20; Pulse Ox 100% on 2 lpm NC; jd3 19:00 BP 127 / 81; Pulse 95; Resp 20; Pulse Ox 100% on 2 lpm NC; jd3 19:15 BP 116 / 74; Pulse 83; Resp 18; Pulse Ox 100% on 2 lpm NC; jd3 19:55 BP 133 / 73; Pulse 81; Resp 16; Pulse Ox 99% on R/A; Pain 0/10; kl 21:41 BP 112 / 52; Pulse 75; Resp 15 S; Pulse Ox 100% on R/A; as6 Selfridge Coma Score: 18:30 Eye Response: spontaneous(4). Verbal Response: oriented(5). Motor Response: obeys ph commands(6). Total: 15. 19:20 Eye Response: spontaneous(4). Verbal Response: oriented(5). Motor Response: obeys jd3 commands(6). Total: 15. Trauma Score (Adult): 18:30 Eye Response: spontaneous(1); Verbal Response: oriented(1); Motor Response: obeys ph commands(2); Systolic BP: > 89 mm Hg(4); Respiratory Rate: 10 to 29 per min(4); Aristeo Score: 15; Trauma Score: 12 19:20 Eye Response: spontaneous(1); Verbal Response: oriented(1); Motor Response: obeys jd3 commands(2); Systolic BP: > 89 mm Hg(4); Respiratory Rate: 10 to 29 per min(4); Selfridge Score: 15; Trauma Score: 12 Procedures: 19:31 Reduction: of the right ankle, using traction, manipulation, Flexion and adduction, sd2 Immobilized with Ortho-glass splint. Patient tolerated well. Post reduction film - reveals improved alignment. Joint Treatment: Moderate sedation: Pre-procedure assessment: ASA physical classification: III - organic disease with definite functional impairment, Airway assessment: able to hyperextend neck, able to maintain airway, can open mouth without difficulty, Mallampati classification of tongue size: II - faucial pillars and soft palate can be visualized, but uvula is masked by the base of the tongue, Monitoring during procedure: cardiac nurse, continuous pulse oximetry, nurse at bedside at all times, Medications employed: Fentanyl, 100 mcg(s), Ketamine, 100 mg(s), Versed, 2 mg(s), , Post-procedure assessment: the patient is deeply sedated, Respiratory status: even and unlabored, a reversal agent was not used. MDM: 19:23 Patient medically screened. [facility] 19:31 Differential diagnosis: abrasion, closed head injury, contusion, fracture, laceration, sd2 multiple trauma, sprain, strain. Data reviewed: vital signs, nurses notes, radiologic studies. Transition of care: After a detail discussion of the patient's case, care is transferred to Rip BRUNSON. ED course: Pt tolerated reduction well. Splint in place. Awaiting formal radiology read. Care of patient signed over to NANNETTE Luna, for further care.. 03/21 19:09 Order name: XRAY Ankle RIGHT 3 view; Complete Time: 20:19 ds4 03/21 19:21 Order name: IV Saline Lock; Complete Time: 19:27 jl7 Administered Medications: 18:45 Drug: fentaNYL (PF) 50 mcg Route: IVP; Site: right antecubital; jl7 19:37 Follow up: Response: No adverse reaction; RASS: Alert and Calm (0) jd3 18:46 Drug: Midazolam 1 mg Route: IVP; Site: right antecubital; jd3 19:36 Follow up: Response: No adverse reaction; RASS: Alert and Calm (0) jd3 18:48 Drug: fentaNYL (PF) 50 mcg Route: IVP; Site: right antecubital; jl7 19:37 Follow up: Response: No adverse reaction; RASS: Alert and Calm (0) jd3 18:48 Drug: NS 0.9% 1000 ml Route: IV; Rate: 1 bolus; Site: right antecubital; jl7 19:37 Follow up: Response: No adverse reaction; IV Status: Completed infusion jd3 18:51 Drug: Zofran (Ondansetron) 4 mg Route: IVP; Site: right antecubital; jl7 19:37 Follow up: Response: No adverse reaction jd3 18:52 Drug: Ketamine 50 mg Route: IVP; Site: right antecubital; jl7 19:37 Follow up: Response: No adverse reaction; RASS: Alert and Calm (0) jd3 19:02 Drug: Ketamine 50 mg Route: IVP; Site: right antecubital; jl7 19:37 Follow up: Response: No adverse reaction; RASS: Alert and Calm (0) jd3 20:57 Drug: Dilaudid (HYDROmorphone) 1 mg Route: IVP; Site: right antecubital; kl 22:10 Follow up: Response: No adverse reaction as6 Disposition Summary: 03/21/22 21:37 Discharge Ordered Location: Home [facility] Condition: Stable [facility] Diagnosis - Right trimalleolar fracture, displaced, closed, initial visit [facility] Followup: [facility] - With: Otoniel Hoffman MD - When: 2 - 3 days - Reason: Recheck today's complaints, Continuance of care, Re-evaluation by your physician Discharge Instructions: - Discharge Summary Sheet [facility] - Ankle Fracture [facility] Forms: - Medication Reconciliation Form [facility] - Thank You Letter [facility] - Antibiotic Education [facility] - Prescription Opioid Use [facility] Signatures: Dispatcher [employer] Naima Puente RN RN kl Mickail, Joel, PA PA jmm Hall, Patricia RN Edward Pino ph, RN RN Atul Garcia RN RN jd3 Dunlop, Stephanie, MD MD sd2 David Naik RN as6
--- NOTE | 2022-03-21 21:37 | ER ---
Nurse's Notes [facility] Name: Mallory Nash Age: 61 yrs Sex: Female : 1960 Arrival Date: 03/21/2022 Time: 18:27 Bed 5 Private MD: Diagnosis: Right trimalleolar fracture, displaced, closed, initial visit Presentation: 03/21 18:35 Chief complaint: Patient states: Walking and lost balance, right ankle rolled and pt jl7 presents to ED with obvious deformity to right ankle, Dr. Roland at bedside. 18:36 Coronavirus screen:. Ebola Screen: No symptoms or risks identified at this time. Onset ph of symptoms was March 21, 2022. 18:36 Method Of Arrival: Wheelchair ph 18:56 Initial Sepsis Screen: Does the patient meet any 2 criteria? No. Patient's initial ph sepsis screen is negative. Does the patient have a suspected source of infection? No. Patient's initial sepsis screen is negative. Risk Assessment: Do you want to hurt yourself or someone else? Patient reports no desire to harm self or others. 18:56 Acuity: MAICO 2 ph 19:05 Care prior to arrival: None. Mechanism of Injury: Fall from standing position. Trauma ph event details: Injury occurred in the [facility], Injury occurred: at home. Trauma Activation: Not Applicable Physician: ED Physician; Name: ; Notified At: ; Arrived At: Physician: General Surgeon; Name: ; Notified At: ; Arrived At: Physician: Radiology; Name: ; Notified At: ; Arrived At: Physician: Respiratory; Name: ; Notified At: ; Arrived At: Physician: Lab; Name: ; Notified At: ; Arrived At: Historical: - Allergies: 18:58 Chlorhexidine Gluconate; ph - PMHx: 18:58 chronic back pain; COPD; Depression; Hypertension; cancer; ph - PSHx: 18:58 Appendectomy; Coronary artery bypass graft; ph - Immunization history:: Adult Immunizations unknown. - Immunization history: Last tetanus immunization: unknown. - Social history:: Smoking status: unknown. Screenin:52 Abuse screen: Denies threats or abuse. Denies injuries from another. Nutritional ph screening: No deficits noted. Tuberculosis screening: No symptoms or risk factors identified. Fall Risk None identified. Primary Survey: 19:04 NO uncontrolled hemorrhage observed. A: The client is awake and alert. The airway is ph patent. Breathing/Chest: Spontaneous respiratory effort, equal unlabored respirations, breath sounds clear bilaterally, regular pattern, symmetrical chest rise and fall. Circulation: No external hemorrhage present. Regular and strong central pulse, skin warm/dry/normal color. Disability Pupils are equal, round, reactive to light and accommodation. Client is alert. Exposure/Environment: Obvious injury(ies) are noted at this time: obvious deformity to R ankle. 21:42 Reassessment Alertness and Airway: Awake and alert. The airway is patent. Breathing: as6 Spontaneous respiratory effort, equal unlabored respirations, breath sounds clear bilaterally, regular pattern with symmetrical chest rise and fall. Circulation: No external hemorrhage noted. Regular and strong central pulse, skin warm/dry/normal color. Disability: Pupils Pupils are equal, round, reactive to light and accomodation. Alert. Secondary Survey: 19:04 HEENT: No deficits noted. Musculoskeletal: Bony deformity noted of right ankle. ph Assessment: 18:40 General: Appears uncomfortable, Behavior is calm, cooperative, appropriate for age. jd3 Pain: Complains of pain in right ankle Quality of pain is described as sharp, shooting. Neuro: Sanz Agitation-Sedation Scale (RASS): +1 Restless Level of Consciousness is awake, alert, obeys commands, Oriented to person, place, time, situation. Cardiovascular: Capillary refill < 3 seconds Patient's skin is warm and dry. Respiratory: Airway is patent Respiratory effort is even, unlabored, Respiratory pattern is regular, symmetrical, Denies cough, shortness of breath. GI: No signs and/or symptoms were reported involving the gastrointestinal system. : No signs and/or symptoms were reported regarding the genitourinary system. EENT: No signs and/or symptoms were reported regarding the EENT system. Derm: Skin is intact, Skin is dry, Skin is pale, Skin temperature is warm. Musculoskeletal: Bony deformity noted of right ankle. 18:50 Reassessment: Patient and/or family updated on plan of care and expected duration. Pain jd3 level reassessed. nurse at bedside assisting Dr. Roland with conscious sedation and reduction, pt with even and unlabored respirations. A\T\O X 0 at this time. supplemental O2 placed on pt for conscious sedation. responsive to pain. GCS of 9. 18:51 Reassessment: Patient appears in no apparent distress at this time. Dr Roland at bedside for conscious sedation. 18:53 General: Appears in no apparent distress. uncomfortable, well groomed, Behavior is ph calm, cooperative, appropriate for age. Pain: Complains of pain in right ankle. Neuro: Level of Consciousness is awake. Cardiovascular: Capillary refill < 3 seconds in bilateral fingers. Respiratory: Airway is patent Respiratory effort is even, unlabored. GI:. Derm: Skin is pale. Musculoskeletal: Bony deformity noted of right ankle. 19:20 Reassessment: Patient appears in no apparent distress at this time. Patient and/or jd3 family updated on plan of care and expected duration. Pain level reassessed. Patient is alert, oriented x 3, equal unlabored respirations, skin warm/dry/pink. pt reports feeling Looney, but able to cough and take deep breaths. pt is currently A\T\O X 4. pt able to freely move all extremities to command. vital signs at baseline. conscious sedation 1:1 nursing observation ended at this time. Orthoglass splint in place to right ankle. report given to Kelly RN and David RN. Patient states feeling better. 19:56 Musculoskeletal: Capillary refill < 3 seconds. kl Vital Signs: 18:36 BP 119 / 76; Pulse 92; Resp 18; Pulse Ox 99% on R/A; ph 18:36 BP 119 / 76; Pulse 92; Resp 18; Pulse Ox 100% on R/A; jd3 18:40 Weight 52.5 kg (M); jd3 18:45 BP 103 / 63; Pulse 89; Resp 20; Pulse Ox 100% on 2 lpm NC; jd3 19:00 BP 127 / 81; Pulse 95; Resp 20; Pulse Ox 100% on 2 lpm NC; jd3 19:15 BP 116 / 74; Pulse 83; Resp 18; Pulse Ox 100% on 2 lpm NC; jd3 19:55 BP 133 / 73; Pulse 81; Resp 16; Pulse Ox 99% on R/A; Pain 0/10; kl 21:41 BP 112 / 52; Pulse 75; Resp 15 S; Pulse Ox 100% on R/A; as6 Aristeo Coma Score: 18:30 Eye Response: spontaneous(4). Verbal Response: oriented(5). Motor Response: obeys ph commands(6). Total: 15. 19:20 Eye Response: spontaneous(4). Verbal Response: oriented(5). Motor Response: obeys jd3 commands(6). Total: 15. Trauma Score (Adult): 18:30 Eye Response: spontaneous(1); Verbal Response: oriented(1); Motor Response: obeys ph commands(2); Systolic BP: > 89 mm Hg(4); Respiratory Rate: 10 to 29 per min(4); Huntley Score: 15; Trauma Score: 12 19:20 Eye Response: spontaneous(1); Verbal Response: oriented(1); Motor Response: obeys jd3 commands(2); Systolic BP: > 89 mm Hg(4); Respiratory Rate: 10 to 29 per min(4); Aristeo Score: 15; Trauma Score: 12 ED Course: 18:27 Patient arrived in ED. as 18:37 Inserted saline lock: 18 gauge in right antecubital area, using aseptic technique. jd3 18:39 Natty Roland is Attending Physician. sd2 18:43 Consent for conscious sedation explained by physician, Verbal consent given by pt and jl7 family due to skin at deformity tenting and needing immediate reduction. 18:55 Assist provider with reduction of right ankle using manipulation, Set up for procedure. jl7 Performed by Natty Roland Immobilized with orthoglass Patient tolerated emergent conscious sedation. 18:58 Triage completed. ph 18:58 Patient has correct armband on for positive identification. Bed in low position. Call ph light in reach. Side rails up X2. Client placed on continuous cardiac and pulse oximetry monitoring. NIBP monitoring applied. Door closed. Noise minimized. 19:04 Oxygen administration via nasal cannula \T\ 2L/min. Thermoregulation: warm blanket given ph to patient. 19:05 Arm band placed on Patient placed in an exam room, on a stretcher. ph 19:23 Rip Delcid PA is PHCP. jmm 19:24 David Naik, RN is Primary Nurse. as6 19:55 No apparent distress. Resting quietly. kl 19:58 XRAY Ankle RIGHT 3 view In Process Unspecified. EDMS 21:36 Otoniel Hoffman MD is Referral Physician. jmm 22:09 IV discontinued, intact, bleeding controlled, No redness/swelling at site. Pressure as6 dressing applied. Administered Medications: 18:45 Drug: fentaNYL (PF) 50 mcg Route: IVP; Site: right antecubital; jl7 19:37 Follow up: Response: No adverse reaction; RASS: Alert and Calm (0) jd3 18:46 Drug: Midazolam 1 mg Route: IVP; Site: right antecubital; jd3 19:36 Follow up: Response: No adverse reaction; RASS: Alert and Calm (0) jd3 18:48 Drug: fentaNYL (PF) 50 mcg Route: IVP; Site: right antecubital; jl7 19:37 Follow up: Response: No adverse reaction; RASS: Alert and Calm (0) jd3 18:48 Drug: NS 0.9% 1000 ml Route: IV; Rate: 1 bolus; Site: right antecubital; jl7 19:37 Follow up: Response: No adverse reaction; IV Status: Completed infusion jd3 18:51 Drug: Zofran (Ondansetron) 4 mg Route: IVP; Site: right antecubital; jl7 19:37 Follow up: Response: No adverse reaction jd3 18:52 Drug: Ketamine 50 mg Route: IVP; Site: right antecubital; jl7 19:37 Follow up: Response: No adverse reaction; RASS: Alert and Calm (0) jd3 19:02 Drug: Ketamine 50 mg Route: IVP; Site: right antecubital; jl7 19:37 Follow up: Response: No adverse reaction; RASS: Alert and Calm (0) jd3 20:57 Drug: Dilaudid (HYDROmorphone) 1 mg Route: IVP; Site: right antecubital; kl 22:10 Follow up: Response: No adverse reaction as6 Medication: 19:04 VIS not applicable for this client. ph Intake: 18:30 PO: 0ml; Total: 0ml. ph Output: 18:30 Urine: 0ml; Total: 0ml. ph Outcome: 21:37 Discharge ordered by . keny 21:42 Patient's length of stay in the Emergency Department was greater than 2 hours. pending as6 x-ray and dcPatient's length of stay extended due to 22:09 Discharged to home via wheelchair, with family. as6 22:09 Condition: stable 22:09 Discharge instructions given to patient, family, Instructed on discharge instructions, follow up and referral plans. medication usage, Demonstrated understanding of instructions, follow-up care, medications, Prescriptions given X 1. 22:10 Patient left the ED. as6 Signatures: Dispatcher [employer] EDMS Naima Harmon, RN Rip Cali PA PA jmm Martinez, Amelia as Hall, Patricia, RN RN ph Leal, Jahala, RN RN jl7 Atul Erazo RN RN jd3 Slawson, Ashby, RN RN as6 Natty Roland MD MD sd2 Corrections: (The following items were deleted from the chart) 19:32 18:40 Inserted saline lock: 22 gauge in right antecubital area, using aseptic jd3 technique. ph 19:49 18:53 Neuro: Level of Consciousness is awake, alert, obeys commands, Oriented to jd3 person, place, time, situation, ph 19:51 19:20 Reassessment: Patient appears in no apparent distress at this time. Patient jd3 and/or family updated on plan of care and expected duration. Pain level reassessed. Patient is alert, oriented x 3, equal unlabored respirations, skin warm/dry/pink. pt reports feeling Looney, but able to cough and take deep breaths. pt is currently A\T\O X 4. pt able to freely move all extremities to command. vital signs at baseline. conscious sedation 1:1 nursing observation ended at this time. Patient states feeling better. jd3 19:54 18:40 Inserted saline lock: 18 gauge in right antecubital area, using aseptic jd3 technique. jd3
[2022-03-21 23:08] VITALS: BP 112/52; O2SAT 100
== END 2022-03-21 22:10 | disposition home or self-care (01) ==
LOC: ER 18:26
PROC: 0QSJXZZ Reposition Right Fibula, External Approach (ICD-10-PCS; principal; 2022-03-21)
DX: S82.851A Displaced trimalleolar fracture of right lower leg, initial encounter for closed fracture (principal); I10 Essential (primary) hypertension; C34.90 Malignant neoplasm of unspecified part of unspecified bronchus or lung; Z95.1 Presence of aortocoronary bypass graft; Z88.8 Allergy status to other drugs, medicaments and biological substances
CPT/HCPCS: 73610; 27818; J2250; J3010; J1170; J7030; J2405; 96361; 96374; 96375; 99285

== ENCOUNTER 2022-03-22 10:56 | Day surgery (SDC) | payer BC ==
[2022-03-22] MEDS ORDERED: CEFAZOLIN SODIUM 1 GM/VIAL ONE (11:51)
[2022-03-22] MEDS ORDERED: Ringers Lactate 1,000 ML IV ONE (11:51)
[2022-03-22 12:06] LABS: SARS-CoV-2 Antigen Rapid Res Negative (Negative)
[2022-03-22 12:07] LABS: Absolute Lymphocytes (CBC) 0.4 K/uL (0.7-4.9); Hematocrit 26.4 % (36.0-45.0); Lymphocytes % 16.4 % (15.3-44.8); RBC Red Blood Cell Count 2.59 M/uL (3.86-4.86)
[2022-03-22] MEDS ORDERED: KETOROLAC 30 MG/ML INJ ONE (12:17)
[2022-03-22] MEDS ORDERED: FENTANYL CITR 100 MCG/2 ML ONE (12:17)
[2022-03-22] MEDS ORDERED: LIDOCAINE 2% MPF 5 ML VIAL ONE (12:17)
[2022-03-22] MEDS ORDERED: ONDANSETRON 4 MG/2 ML VIAL ONE (12:17)
[2022-03-22] MEDS ORDERED: dexAMETHasone 10 MG/ML VIAL ONE ×2 (12:17)
[2022-03-22] MEDS ORDERED: ROPLVACAINE HCL 40 ML ONE (12:17)
[2022-03-22] MEDS ORDERED: propofoL 200 MG/20 ML VIAL IV ONE (12:17)
[2022-03-22] MEDS ORDERED: ROPIVACAINE HCL 40 ML ONE (12:17)
[2022-03-22] MEDS ORDERED: MIDAZOLAM HCL 2 MG/2 ML INJ ONE (12:17)
[2022-03-22] MEDS ORDERED: EPHEDRINE SULF 50 MG/ML VIAL ONE (12:19)
[2022-03-22 12:25] LABS: Albumin 3.3 g/dL (3.4-5.0); Bilirubin Total 0.5 mg/dL (0.2-1.0); Potassium 4.6 mmol/L (3.5-5.1); Protein, Total 6.4 g/dL (6.4-8.2)
[2022-03-22] MEDS ORDERED: Phenylephrine HCl 10 MG/ML 1 ML VIAL ONE (12:33)
[2022-03-22] MEDS ORDERED: NS 0.9% VIAL 10 ML ONE (12:33)
[2022-03-22] MEDS ORDERED: EPINEPHRINE/PF 1 MG/ML AMP ONE (12:55)
[2022-03-22] MEDS ORDERED: NA CHLORIDE 0.9% 1,000 ML ONE (14:15)
--- NOTE | 2022-03-22 15:16 | OP ---
Date of Procedure: 03/22/2022 Surgeon: Otoniel Hoffman MD Preoperative Diagnosis: Right bimalleolar ankle fracture dislocation with impending open injury. Postoperative Diagnosis: Right bimalleolar ankle fracture dislocation with impending open injury. Procedure: Right ankle open reduction and internal fixation of bimalleolar ankle fracture. Estimated Blood Loss: 20 cc. Complications: No complications. Pathology Specimens: No pathology specimens sent. Indication For Operation: Ms. Nash unfortunately sustained a fracture dislocation of her ankle ye sterday. She was seen in the emergency department where she underwent a closed reduction. The close d reduction x-rays actually looked fairly well, but a little bit subluxed, but felt perhaps we could treat this in a less urgent fashion; however, the splint is gently loosened to allow for visualizatio n of the skin and was found to be essentially re-dislocated with tenting of the medial side. She dumont s have very very thin skin and there was great concern that this is an impending open injury. There was attempt for gentle manipulation in the clinic; however, the patient was in significant amount of pain and this was not beneficial. Therefore, decision made to take her as fast as possible to the op erating room and risks, benefits, and alternatives to the procedure have been discussed with her. Sh e states she understands things as presented and wished to proceed. Description Of Procedure: The patient was taken to the operating room and placed in supine position. General anesthesia was obtained by staff. Following this, a well-padded tourniquet was placed on t he superior right thigh. Right lower extremity was then gently reduced. There does appear to be jagjit te a bit of discoloration directly over the fracture site on the medial thigh; however, there is no s ign of open injury and the skin does appear viable at this time, although appears very close to being a significant issue; however, the ankle was then reduced and then prepped and draped in usual steril e fashion. After this, a tourniquet was then elevated, but not exsanguinated. Tourniquet was raised . A standard incision was made medially and taken down carefully through the skin and soft tissues. The medial side is seen. The fracture site was cleared. It was then anatomically reduced and held in place using two 4.0 cannulated screws, which appeared to be parallel holding compression quite zaheer mateus. This was then irrigated and the skin is closed. The skin is very tenuous and closed simply wit h nylon sutures. No attempt was made to place Vicryl, but it is closed very well without undue tensi on. Attention was then turned to the lateral aspect where a standard incision was made. The fractur e was easily identified and there was some periosteal stripping around the fracture site. After this , there was sufficient position for the plate to be placed and underwent a closed reduction maneuver. There was some comminution here. There was consideration of putting in a lag screw; however, the l ag screw probably would not hold based on the amount of comminution and osteopenia the patient has, t herefore decision was made to simply hold this in reduced fashion and then plate with the clamp on. This was done without difficulty and at the end, the fracture appears to be essentially anatomically reduced. The wound was irrigated and skin was closed using interrupted Vicryl sutures followed by ny lacho. The patient was then placed in Aquacel dressing as well as extremely in well-padded sterile lakesha ssing and used footplate. The patient was then awakened and taken to recovery room in good condition ; however, before she is taken to recovery room, she will receive a block by Anesthesia. /ML Voice ID: [id number] Report ID: [id number]
[2022-03-22 15:54] VITALS: BP 144/66; TEMP 98.3; O2SAT 93
--- NOTE | 2022-03-23 08:26 | RAD REPORT ---
EXAM DESCRIPTION: RAD - Ankle Right 2 View - 03/23/2022 7:34 am CLINICAL HISTORY: ORIF COMPARISON: Ankle Right 3 View dated 03/21/2022 FINDINGS: Fluoroscopy time 0.5 minutes.
== END 2022-03-22 15:00 | disposition home or self-care (01) ==
LOC: OR 10:56
PROVIDERS: ATTEND Orthopaedic Surgery
PROC: 0QSG04Z Reposition Right Tibia with Internal Fixation Device, Open Approach (ICD-10-PCS; principal; 2022-03-22 11:30)
DX: S82.841A Displaced bimalleolar fracture of right lower leg, initial encounter for closed fracture (principal); Z20.822 Contact with and (suspected) exposure to COVID-19
CPT/HCPCS: 85025; 36415; 80053; 73600; 87811; 27814; J2704; J0171; J2370; J2250; J3010; J1100 ×2; J2795; J7120; J7030; J2405; J0690

== ENCOUNTER 2022-03-25 12:22 | Emergency (ER) | payer BC ==
[2022-03-25] MEDS ORDERED: ONDANSETRON 4 MG/2 ML VIAL ONE (12:49)
[2022-03-25] MEDS ORDERED: NA CHLORIDE 0.9% 1,000 ML ONE (12:49)
[2022-03-25] MEDS ORDERED: FAMOTIDINE 20 MG/2 ML VIAL IV ONE (12:49)
[2022-03-25 13:07] LABS: Absolute Lymphocytes (CBC) 0.2 K/uL (0.7-4.9); Hematocrit 28.7 % (36.0-45.0); Lymphocytes % 8.2 % (15.3-44.8); MCV 101.9 fL (80-100); MPV 7.7 fL (7.6-11.3); RBC Red Blood Cell Count 2.82 M/uL (3.86-4.86)
[2022-03-25 13:13] LABS: SARS-CoV-2 Antigen Rapid Res Positive (Negative)
[2022-03-25 13:15] LABS: Protime INR 0.97
[2022-03-25 13:33] LABS: Albumin 3.4 g/dL (3.4-5.0); Bilirubin Direct 0.1 mg/dL (0-0.2); Bilirubin Total 0.5 mg/dL (0.2-1.0); Magnesium 1.7 mg/dL (1.8-2.4); Potassium 3.5 mmol/L (3.5-5.1); Protein, Total 7.2 g/dL (6.4-8.2); Troponin High Sensitivity 6.4 pg/mL (<58.9)
[2022-03-25] MEDS ORDERED: MORPHINE 4 MG/ML SYR ONE (13:33)
--- NOTE | 2022-03-25 13:40 | RAD REPORT ---
EXAM DESCRIPTION: RAD - Chest Single View - 03/25/2022 1:04 pm CLINICAL HISTORY: SOB, cold-like symptoms, history of recent ankle surgery COMPARISON: CT chest November 23, portable chest November 22 TECHNIQUE: AP portable chest image was obtained 03/25/2022 1:04 pm . FINDINGS: Left hilar surgical clips are present. Extensive chronic interstitial lung disease is pres ent in each upper lung field, more prominent on the left. Pleural thickening is seen in the upper lef t lung field also stable from prior examinations. No new mass or consolidation. Severity of chronic d isease could mask minimal edema or infiltrate. No significant failure or volume overload. Sternotomy wires are in place. Heart and vasculature are normal. No measurable pleural effusion and n o pneumothorax. No acute bony abnormality seen. No acute aortic findings suspected. IMPRESSION: Chronic pleural and parenchymal disease is present not clearly different from comparison peer Severity of chronic disease could potentially mask minimal edema or infiltrate.
[2022-03-25] MEDS ORDERED: MAGNESIUM SULFATE 1 gm IVPB 1 GM/100 ML BAG IV ONE (13:59)
--- NOTE | 2022-03-25 14:32 | RAD REPORT ---
EXAM DESCRIPTION: CT - Abdomen Pelvis W Contrast - 03/25/2022 2:22 pm CLINICAL HISTORY: Abdominal pain, acute, nonlocalized, history of stage III lung cancer COMPARISON: No comparisons TECHNIQUE: Biphasic, helical CT imaging of the abdomen and pelvis was performed following 100 ml non -ionic IV contrast. Oral contrast was given. All CT scans are performed using dose optimization technique as appropriate and may include automated exposure control or mA/KV adjustment according to patient size. FINDINGS: No suspicious findings in the lung bases. The liver, spleen, and pancreas show no suspicious findings. Numerous punctate gallstones are seen la yering in the dependent portion of the gallbladder. No gallbladder wall thickening or edema. No bilia ry tree abnormality. Symmetric renal function is seen with no hydronephrosis or suspicious renal mass. No pyelonephritis o r acute parenchymal process. No bladder abnormalities. No adrenal abnormalities. No uterine or right ovarian abnormality. There is a 3.1 centimeter mixed soft tissue and fat mass in the left adnexa. No associated calcification. Mild sigmoid diverticulosis without diverticulitis identified. Moderate stool volume throughout the c olon. No acute large or small bowel finding. No acute gastric abnormality. No free air, free fluid o r inflammatory stranding. No hernia, mass or bulky lymphadenopathy. Disc and bone degenerative changes are present. Degenerative disc disease is advanced at L5-S1. No pa thologic bone process. Dense arterial tree calcifications are present. IMPRESSION: Contrast enhanced CT abdomen and pelvis showing no acute or emergent finding. Multi stone cholelithiasis without acute gallbladder or biliary tree finding. Approximately 3 centimeter left ovarian dermoid/teratoma.
[2022-03-25 14:42] LABS: Urine Blood 3+ (Negative); Urine Glucose Negative (Negative); Urine Protein 1+ (Negative); Urine Specific Gravity 1.025 (1.005-1.030)
[2022-03-25 15:02] LABS: Urine Bacteria <20 /HPF (<20); Urine RBC >50 /HPF (None Seen)
[2022-03-25 15:04] LABS: Platelet Estimate ADEQ; White Blood Cell Scan DIFF (OK)
[2022-03-25] MEDS ORDERED: BEBTELOVIMAB 175 MG/2 ML VIAL IV ONE (15:04)
[2022-03-25 15:11] LABS: Blood Morphology Comment NOT SEEN (NOT SEEN)
--- NOTE | 2022-03-25 15:39 | EDPHYS ---
Physician Documentation [facility] Name: Mallory Nash Age: 61 yrs Sex: Female : 1960 Arrival Date: 03/25/2022 Time: 12:23 Bed 2 Private MD: ED Physician Dagoberto Sim HPI: 03/25 12:40 This 61 yrs old Female presents to ER via EMS with complaints of COVID symptoms. cp 12:40 The patient presents with abdominal pain constipation with last bowel movement 3 days cp ago. 12:40 Patient reports calling EMS for "not feeling well". C/o pain all over. Son tested cp positive for COVID-19. Patient with history of lung cancer. Had surgery on left ankle on 03-22-2022. 12:40 Associated signs and symptoms: Pertinent negatives: chest pain, diarrhea, fever, cp vomiting. Historical: - Allergies: 12:34 Chlorhexidine Gluconate; ap3 - Home Meds: 12:34 gabapentin oral [Active]; Metoprolol Tartrate Oral [Active]; amlodipine oral [Active]; ap3 Tylenol #3 Oral [Active]; olanzapine oral [Active]; Prochlorperazine Maleate Oral [Active]; - PMHx: 12:34 Cancer; chronic back pain; COPD; Depression; Hypertension; ap3 - PSHx: 12:34 Appendectomy; Coronary artery bypass graft; ap3 - Immunization history:: Client reports receiving the 2nd dose of the Covid vaccine. - Social history:: Smoking status: Patient reports the use of cigarette tobacco products, smokes one pack cigarettes per day. ROS: 12:42 Constitutional: Positive for body aches, chills, Negative for fever. cp 12:42 Neck: Negative for pain with movement, pain at rest, stiffness. 12:42 Cardiovascular: Negative for chest pain, edema, palpitations. 12:42 Respiratory: Positive for cough, Negative for wheezing. 12:42 Abdomen/GI: Positive for abdominal pain, constipation, Negative for vomiting, diarrhea, anorexia, black/tarry stool, rectal bleeding. 12:42 Eyes: Negative for injury, pain, redness, and discharge. cp 12:42 Neuro: Negative for altered mental status, syncope. 12:42 Skin: Negative for cellulitis, rash. cp 12:42 All other systems are negative. Exam: 12:43 ECG was reviewed by the Attending Physician. cp 12:45 Constitutional: The patient appears in no acute distress, alert, awake, cp non-diaphoretic, non-toxic, well developed, well nourished. 12:45 Head/Face: Normocephalic, atraumatic. cp 12:45 Eyes: Periorbital structures: appear normal, Pupils: equal, round, and reactive to light and accomodation, Extraocular movements: intact throughout, Conjunctiva: normal, no exudate, no injection, Sclera: no appreciated abnormality, Lids and lashes: appear normal, bilaterally. 12:45 ENT: External ear(s): are unremarkable, Nose: is normal, Mouth: Lips: moist, Oral mucosa: pink and intact, moist, Posterior pharynx: Airway: no evidence of obstruction, patent, Tonsils: are normal in appearance, Uvula: midline, swelling, is not appreciated, erythema, is not appreciated, exudate, is not appreciated. 12:45 Neck: ROM/movement: is normal, is supple, without pain, no range of motions limitations, no meningismus, no nuchal rigidity. 12:45 Chest/axilla: Inspection: normal. 12:45 Cardiovascular: Rate: tachycardic, Rhythm: regular, Edema: is not appreciated, JVD: is not appreciated. 12:45 Respiratory: the patient does not display signs of respiratory distress, Respirations: labored breathing, that is mild, Breath sounds: are clear throughout, no decreased breath sounds, no stridor, no wheezing. 12:45 Abdomen/GI: Inspection: abdomen appears normal, Bowel sounds: active, all quadrants, Palpation: soft, in all quadrants, moderate abdominal tenderness, in all quadrants, rebound tenderness, is not appreciated, involuntary guarding, is not appreciated. 12:45 Skin: cellulitis, is not appreciated, no rash present. 12:45 Neuro: Orientation: to person, place \\T\\ time. Mentation: is normal, Motor: moves all fours, strength is normal, Sensation: is normal. Vital Signs: 12:31 BP 135 / 65; Pulse 119; Temp 98.1; Pulse Ox 100% ; Weight 49.9 kg; Height 5 ft. 4 in. ap3 (162.56 cm); 12:31 Resp 23; ap3 13:30 BP 166 / 74; Pulse 117; Resp 26; Pulse Ox 100% on R/A; Pain 5/10; tw2 14:10 BP 152 / 71; Pulse 96; Resp 21; Pulse Ox 100% ; ap3 15:17 BP 164 / 75; Pulse 104; Resp 19; Pulse Ox 99% on R/A; tw2 12:31 Body Mass Index 18.88 (49.90 kg, 162.56 cm) ap3 MDM: 12:33 Patient medically screened. [facility] 15:38 Data reviewed: vital signs, nurses notes, lab test result(s), EKG, radiologic studies, cp CT scan, plain films. 15:38 Differential diagnosis: non-specific abd pain, urinary tract infection, pneumonia, cp bowel obstruction, sepsis, COVID-19. Test interpretation: by ED physician or midlevel provider: ECG, plain radiologic studies. Counseling: I had a detailed discussion with the patient and/or guardian regarding: the historical points, exam findings, and any diagnostic results supporting the discharge/admit diagnosis, lab results, radiology results, to return to the emergency department if symptoms worsen or persist or if there are any questions or concerns that arise at home. Response to treatment: the patient's symptoms have markedly improved after treatment, and as a result, I will discharge patient. ED course: VSS. Patient appears non-toxic and no signs of respiratory distress. Will discharge to home for continued monitoring. 03/25 12:38 Order name: Basic Metabolic Panel; Complete Time: 13:40 03/25 13:40 Interpretation: Normal except: NA 134; GLUC 165; GFR 80. 03/25 12:38 Order name: CBC with Diff; Complete Time: 15:12 03/25 13:41 Interpretation: Normal except: WBC 2.3; RBC 2.82; HGB 10.5; HCT 28.7; MCV 101.9; MCH cp 37.2; MCHC 36.5; RDW 15.8; LYM% 8.2; MN% 21.2; NEUT A 1.6; LYMA 0.2. 03/25 12:38 Order name: LFT's; Complete Time: 13:40 cp 03/25 12:38 Order name: Magnesium; Complete Time: 13:40 cp 03/25 12:38 Order name: NT PRO-BNP; Complete Time: 13:40 cp 03/25 13:41 Interpretation: Abnormal: NT PRO-BNP 1171. cp 03/25 12:38 Order name: PT-INR; Complete Time: 13:40 cp 03/25 12:38 Order name: Troponin HS; Complete Time: 13:40 cp 03/25 12:38 Order name: XRAY Chest (1 view); Complete Time: 13:43 cp 03/25 12:38 Order name: Urine Microscopic Only; Complete Time: 15:12 cp 03/25 15:12 Interpretation: Normal except: URBC >50. cp 03/25 12:45 Order name: SARS RAPID; Complete Time: 13:40 em1 03/25 12:45 Order name: Flu; Complete Time: 14:35 em1 03/25 13:13 Order name: CBC Smear Scan; Complete Time: 15:12 EDMS 03/25 14:42 Order name: Urine Dipstick-Ancillary; Complete Time: 15:12 EDMS 03/25 15:13 Interpretation: Normal except: UKET 3+; UBLD 3+; UPROT 1+. 03/25 15:07 Order name: Manual Differential; Complete Time: 15:12 EDMS 03/25 15:12 Interpretation: Normal except: BANDS [F] 3; MONO 18. cp 03/25 12:38 Order name: EKG; Complete Time: 12:39 03/25 12:38 Order name: Cardiac monitoring; Complete Time: 12:39 cp 03/25 12:38 Order name: EKG - Nurse/Tech; Complete Time: 12:39 cp 03/25 12:38 Order name: IV Saline Lock; Complete Time: 12:52 03/25 12:38 Order name: Labs collected and sent; Complete Time: 12:52 cp 03/25 12:38 Order name: O2 Per Protocol; Complete Time: 12:38 cp 03/25 12:38 Order name: O2 Sat Monitoring; Complete Time: 12:38 cp 03/25 12:38 Order name: Urine Dipstick-Ancillary (obtain specimen); Complete Time: 14:36 03/25 13:45 Order name: CT Abd/Pelvis - IV Contrast Only; Complete Time: 14:35 cp 03/25 14:36 Order name: PO challenge; Complete Time: 15:15 cp EC:43 Rate is 112 beats/min. Rhythm is regular. CA interval is normal. QRS interval is cp normal. QT interval is normal. Interpreted by me. Reviewed by me. Administered Medications: 12:47 Drug: Zofran (Ondansetron) 4 mg Route: IVP; Site: right antecubital; tw2 13:24 Follow up: Response: No adverse reaction; Nausea is decreased tw2 12:51 Drug: Pepcid (famotidine) 20 mg Route: IVP; Site: right antecubital; tw2 13:23 Follow up: Response: No adverse reaction tw2 12:52 Drug: NS 0.9% 500 ml Route: IV; Rate: bolus; Site: right antecubital; tw2 13:23 Follow up: Response: No adverse reaction; IV Status: Completed infusion; IV Intake: tw2 500ml 13:23 Drug: NS 0.9% 500 ml Route: IV; Rate: 100 ml/hr; Site: right antecubital; tw2 15:39 Follow up: Rate change bolus; IV Intake: 500ml ; per provider change 500 ml iV at 100 tw2 ml/hr to BOLUS at this time. 16:12 Follow up: Response: No adverse reaction; IV Status: Completed infusion; IV Intake: tw2 500ml 13:30 Drug: morphine 4 mg {Note: rass 0.} Route: IVP; Infused Over: 4 mins; Site: right tw2 antecubital; 14:20 Follow up: Response: No adverse reaction; Pain is decreased; RASS: Alert and Calm (0) tw2 13:57 Drug: Magnesium Sulfate 1 grams Route: IVPB; Infused Over: 1 hrs; Site: right ap3 antecubital; 15:15 Follow up: IV Status: Completed infusion ap3 15:21 Drug: Bebtelovimab 175 mg {Note: pt and pts son agreeable to IV adminstration at this tw2 time..} Route: IV; Rate: calculated rate; Site: right antecubital; 15:22 Follow up: Response: (VIS) Vaccine information sheet provided today. Questions and/or tw2 concerns addressed. VIS edition date: Apr 03, 2021.; No adverse reaction; IV Status: Completed infusion; IV Intake: 2ml Disposition Summary: 03/25/22 15:39 Discharge Ordered Location: Home cp Problem: new cp Symptoms: have improved cp Condition: Stable cp Diagnosis - SARS-associated coronavirus as the cause of diseases classified elsewhere cp - Abdominal pain, Generalized cp Followup: cp - With: Private Physician - When: 2 - 3 days - Reason: Worsening of condition Discharge Instructions: - Discharge Summary Sheet cp - Abdominal Pain, Adult cp - Aspirin and Your Heart cp - COVID-19 cp - Things to Know about the COVID-19 Pandemic - [facility] cp - 10 Things You Can Do to Manage Your COVID-19 Symptoms at Home - [facility] cp - COVID-19: Quarantine vs. Isolation - [facility] cp - Prevent the Spread of COVID-19 if You Are Sick - [facility] cp Forms: - Medication Reconciliation Form cp - Thank You Letter cp - Antibiotic Education cp - Prescription Opioid Use cp Prescriptions: - Zofran 4 mg Oral Tablet - take 1 tablet by ORAL route every 12 hours As needed; 20 tablet; Refills: 0, cp Product Selection Permitted Signatures: Dispatcher [employer] EDDagoberto Haile MD MD cha Page, Corey, PA PA Marlene Cho RN RN tw2 Crystal Dalton RN RN ap3 Corrections: (The following items were deleted from the chart) 03/26 13:16 00:39 Constitutional: Positive for body aches, chills, Negative for fever, cp cp 13:16 00:39 Cardiovascular: Negative for chest pain, edema, palpitations, cp cp 13: 00:39 Respiratory: Positive for cough, Negative for wheezing, cp cp 13:16 00:39 Abdomen/GI: Positive for abdominal pain, constipation, Negative for vomiting, cp diarrhea, anorexia, black/tarry stool, rectal bleeding, cp 13:16 00:39 Neck: Negative for pain with movement, pain at rest, stiffness, cp cp
--- NOTE | 2022-03-25 15:39 | ER ---
Nurse's Notes [facility] Name: Mallory Nash Age: 61 yrs Sex: Female : 1960 Arrival Date: 03/25/2022 Time: 12:23 Bed 2 Private MD: Diagnosis: SARS-associated coronavirus as the cause of diseases classified elsewhere;Abdominal pain, Generalized Presentation: 03/25 12:31 Chief complaint: EMS states: they were called out for a patient stating she doesn't ap3 feel good and she has stage 3 lung cancer. patient states her son lives with her, and her son tested positive for COVID recently. Patient reports body aches, nausea, and generalized fatigue. It is also reported patient had sx on an injured ankle Tuesday03/22/2022. Coronavirus screen: Client presents with at least one sign or symptom that may indicate coronavirus-19. Ebola Screen: No symptoms or risks identified at this time. Initial Sepsis Screen: Does the patient meet any 2 criteria? RR > 20 per min. Does the patient have a suspected source of infection? No. Patient's initial sepsis screen is negative. Risk Assessment: Do you want to hurt yourself or someone else? Patient reports no desire to harm self or others. Onset of symptoms was March 24, 2022. 12:31 Method Of Arrival: EMS: [facility] ap3 12:31 Acuity: MAICO 3 ap3 Triage Assessment: 12:36 General: Appears distressed, uncomfortable, Behavior is anxious. Pain: Complains of ap3 pain in generalized body aches and right ankle. Neuro: Level of Consciousness is awake, alert, obeys commands, Oriented to person, place, time, situation, Speech is normal. Cardiovascular: Patient's skin is warm and dry. Respiratory: Airway is patent Respiratory effort is even, unlabored, Respiratory pattern is tachypnea. GI: Reports nausea. Musculoskeletal: dressing present on right lower extremity from recent sx. Historical: - Allergies: 12:34 Chlorhexidine Gluconate; ap3 - Home Meds: 12:34 gabapentin oral [Active]; Metoprolol Tartrate Oral [Active]; amlodipine oral [Active]; ap3 Tylenol #3 Oral [Active]; olanzapine oral [Active]; Prochlorperazine Maleate Oral [Active]; - PMHx: 12:34 Cancer; chronic back pain; COPD; Depression; Hypertension; ap3 - PSHx: 12:34 Appendectomy; Coronary artery bypass graft; ap3 - Immunization history:: Client reports receiving the 2nd dose of the Covid vaccine. - Social history:: Smoking status: Patient reports the use of cigarette tobacco products, smokes one pack cigarettes per day. Screenin:36 Abuse screen: Denies threats or abuse. Nutritional screening: Cancer patient. she just ap3 completed chemo and radiation last week. Tuberculosis screening: No symptoms or risk factors identified. Fall Risk Fall in past 12 months (25 points). Secondary diagnosis (15 points) No IV (0 pts). Ambulatory Aid- None/Bed Rest/Nurse Assist (0 pts). Gait- Weak (10 pts.). Mental Status- Oriented to own ability (0 pts). Total Pizarro Fall Scale indicates High Risk Score (45 or more points). Fall prevention measures have been instituted. Side Rails Up X 2 Placed Close to Nursing Station Frequent Obs/Assessments Occuring Family Present and informed to notify staff if the need to leave the bedside As available patient and family educated on Fall Prevention Program and Strategies. Assessment: 13:30 Reassessment: Patient appears in no apparent distress at this time. No changes from tw2 previously documented assessment. Patient and/or family updated on plan of care and expected duration. Pain level reassessed. Patient is alert, oriented x 3, equal unlabored respirations, skin warm/dry/pink. 14:42 Reassessment: pt and pts son given EUA information sheet on Bebtelovimab at this time. tw2 they are discussing it and will decide shortly if she would like to receive it today. 14:54 Reassessment: pts son on phone with pts cancer about the EUA medication Bebtelovimab tw2 at this time. 15:20 Reassessment: pt son states cancer gave the go ahead to receive the EUA medication tw2 Bebtelovimab at this time. 15:29 Reassessment: pt needing bedpan at this time, pt placed on bedpan, pt urinated, pt tw2 cleaned and covered back up at this time. 15:36 Reassessment: provider at bedside at this time discussing results and poc for discharge.tw2 16:14 Reassessment: Patient appears in no apparent distress at this time. No changes from tw2 previously documented assessment. Patient and/or family updated on plan of care and expected duration. Pain level reassessed. Patient is alert, oriented x 3, equal unlabored respirations, skin warm/dry/pink. Vital Signs: 12:31 BP 135 / 65; Pulse 119; Temp 98.1; Pulse Ox 100% ; Weight 49.9 kg; Height 5 ft. 4 in. ap3 (162.56 cm); 12:31 Resp 23; ap3 13:30 BP 166 / 74; Pulse 117; Resp 26; Pulse Ox 100% on R/A; Pain 5/10; tw2 14:10 BP 152 / 71; Pulse 96; Resp 21; Pulse Ox 100% ; ap3 15:17 BP 164 / 75; Pulse 104; Resp 19; Pulse Ox 99% on R/A; tw2 12:31 Body Mass Index 18.88 (49.90 kg, 162.56 cm) ap3 ED Course: 12:23 Patient arrived in ED. em1 12:31 Crystal Dalton, NAIN is Primary Nurse. ap3 12:32 Dagoberto Holder PA is PHCP. cp 12:32 Dagoberto Sim MD is Attending Physician. cp 12:34 Triage completed. ap3 12:38 Arm band placed on right wrist. ap3 12:38 Patient has correct armband on for positive identification. Bed in low position. Call ap3 light in reach. Side rails up X2. Adult w/ patient. classroom monitor on. Pulse ox on. NIBP on. Door closed. Noise minimized. 12:51 Inserted saline lock: 20 gauge in right antecubital area, using aseptic technique. ap3 Blood collected. 13:06 XRAY Chest (1 view) In Process Unspecified. EDMS 14:24 CT Abd/Pelvis - IV Contrast Only In Process Unspecified. EDMS 14:36 Urine Microscopic Only Sent. tw2 15:39 Awaiting: completion of IV bolus at this time, placed on pump for faster infusion at tw2 this time. 16:13 No provider procedures requiring assistance completed. IV discontinued, intact, tw2 bleeding controlled, No redness/swelling at site. Pressure dressing applied. Administered Medications: 12:47 Drug: Zofran (Ondansetron) 4 mg Route: IVP; Site: right antecubital; tw2 13:24 Follow up: Response: No adverse reaction; Nausea is decreased tw2 12:51 Drug: Pepcid (famotidine) 20 mg Route: IVP; Site: right antecubital; tw2 13:23 Follow up: Response: No adverse reaction tw2 12:52 Drug: NS 0.9% 500 ml Route: IV; Rate: bolus; Site: right antecubital; tw2 13:23 Follow up: Response: No adverse reaction; IV Status: Completed infusion; IV Intake: tw2 500ml 13:23 Drug: NS 0.9% 500 ml Route: IV; Rate: 100 ml/hr; Site: right antecubital; tw2 15:39 Follow up: Rate change bolus; IV Intake: 500ml ; per provider change 500 ml iV at 100 tw2 ml/hr to BOLUS at this time. 16:12 Follow up: Response: No adverse reaction; IV Status: Completed infusion; IV Intake: tw2 500ml 13:30 Drug: morphine 4 mg {Note: rass 0.} Route: IVP; Infused Over: 4 mins; Site: right tw2 antecubital; 14:20 Follow up: Response: No adverse reaction; Pain is decreased; RASS: Alert and Calm (0) tw2 13:57 Drug: Magnesium Sulfate 1 grams Route: IVPB; Infused Over: 1 hrs; Site: right ap3 antecubital; 15:15 Follow up: IV Status: Completed infusion ap3 15:21 Drug: Bebtelovimab 175 mg {Note: pt and pts son agreeable to IV adminstration at this tw2 time..} Route: IV; Rate: calculated rate; Site: right antecubital; 15:22 Follow up: Response: (VIS) Vaccine information sheet provided today. Questions and/or tw2 concerns addressed. VIS edition date: Apr 03, 2021.; No adverse reaction; IV Status: Completed infusion; IV Intake: 2ml Medication: 14:42 Vaccine Information Statement (VIS) provided today. Questions and/or concerns tw2 addressed. VIS edition date: March 25, 2022. Intake: 13:23 IV: 500ml; Total: 500ml. tw2 15:22 IV: 2ml; Total: 502ml. tw2 15:39 IV: 500ml; Total: 1002ml. tw2 16:12 IV: 500ml; Total: 1502ml. tw2 Outcome: 15:39 Discharge ordered by . cp 16:13 Discharged to home via wheelchair, with family. tw2 16:13 Condition: stable 16:13 Discharge instructions given to patient, family, Instructed on discharge instructions, follow up and referral plans. medication usage, Demonstrated understanding of instructions, follow-up care, medications, Prescriptions given X 1. 16:14 Patient left the ED. tw2 Signatures: Dispatcher [employer] EDOrtiz Avery em1 Dagoberto Holder PA PA cp Marlene Leo, RN RN tw2 Crystal Dalton RN RN ap3 Corrections: (The following items were deleted from the chart) 15:40 15:17 BP 164 / 75; Pulse 104bpm; Pulse Ox 99%; ap3 tw2
[2022-03-25 16:44] VITALS: TEMP 98.1
[2022-03-25 16:50] VITALS: BP 164/75; O2SAT 99
--- NOTE | 2022-03-26 15:22 | EKG ---
Test Date: 2022-03-25 Test Time: 12:38:23 Epic Trainer: GRAHAM MEASUREMENT RESULTS: Intervals: Rate: 112 CO: 140 QRSD: 72 QT: 340 QTc: 464 [place]: P: 84 CO: 140 QRS: 89 T: 89 INTERPRETIVE STATEMENTS: Sinus tachycardia Possible Left atrial enlargement Nonspecific ST and T wave abnormality Abnormal ECG Compared to ECG 11/22/2021 11:41:14 ST (T wave) deviation now present Ventricular premature complex(es) no longer present Myocardial infarct finding no longer present Electronically Signed On 03-26-22 15:19:50 CDT by Luis M Martin
== END 2022-03-25 16:14 | disposition home or self-care (01) ==
LOC: ER 12:22
DX: U07.1 COVID-19 (principal); R10.84 Generalized abdominal pain; F17.210 Nicotine dependence, cigarettes, uncomplicated; I10 Essential (primary) hypertension; J44.9 Chronic obstructive pulmonary disease, unspecified; Z85.118 Personal history of other malignant neoplasm of bronchus and lung; Z88.8 Allergy status to other drugs, medicaments and biological substances
CPT/HCPCS: 96365; 96361; 93005; 85025; 80048; 36415; 83735; 85610; 80076; 84484; 83880; 87804 ×2; 74177; 71045; 96375; 99285; 87811; Q9967; J3475; J7030; J2405; J3490; 81003; 81015

== ENCOUNTER 2022-08-23 11:48 | Inpatient (IN) | payer BC ==
--- OUTSIDE RECORDS SUMMARY | 2022-08-23 11:56 | XMS REPORT | Clinical Summary ---
:[address] [facility] MD [facility] Address [address] [place] [address] Care Team Providers Name Role Phone Renetta Morillo MD Unavailable Nas Aiken MD Unavailable Sukhjinder Cardoza MD Primary Care Provider Allergies Active Allergy Reactions Severity Noted Date Comments Chlorhexidine Itching High 07/27/2017 new new Medications Medication Sig Dispensed Refills Start Date End Date Status DULoxetine (CYMBALTA) Take 1 capsule 0 11/27/2021 Active 60 mg capsule (60 mg) by mouth daily. Trelegy Ellipta Inhale 1 puff by 0 11/25/2021 Active 100-62.5-25 mcg dsdv mouth daily. gabapentin (NEURONTIN) Take 1 tablet 0 08/01/2017 Active 800 mg tablet (800 mg) by mouth 4 (four) times a day. ipratropium (ATROVENT) Inhale 1 mL by 0 11/27/2021 Active 0.02% nebulizer nebulization solution daily. metoprolol tartrate Take 25 mg by 0 08/01/2017 Active (LOPRESSOR) 25 mg mouth twice tablet daily. naloxone (NARCAN) 4 Inhale 1 spray 0 11/27/2021 Active mg/actuation nasal into each nostril spray as needed. Vuity 1.25 % drop Administer 1 drop 0 11/16/2021 Active to both eyes twice daily. cyanocobalamin Inject 1 mL into 0 08/31/2021 Active (VITAMIN B-12) 1,000 the shoulder, mcg/mL injection thigh, or buttocks every 30 (thirty) days. clonazePAM (KlonoPIN) Take 1 tablet (2 0 11/27/2021 Active 2 mg tablet mg) by mouth as needed. aspirin 81 mg chewable Chew 81 mg daily. 0 Active tablet amLODIPine (NORVASC) 5 Take 1 tablet by 0 11/27/2021 Active mg tablet mouth daily. albuterol Inhale 2.5 mg by 0 Act gume (PROVENTIL,VENTOLIN) mouth as needed. 2.5 mg/3 mL (0.083%) nebulizer solution albuterol (VENTOLIN Inhale 1 puff by 0 11/27/2021 Active HFA,PROAIR HFA) 90 mouth as needed. mcg/puff inhaler prochlorperazine Take 1 tablet (10 30 tablet 0 02/17/2022 Active (Compazine) 10 mg mg) by mouth tabletIndications: every 6 (six) Squamous cell hours as needed carcinoma of left lung for nausea. ondansetron (ZOFRAN) 8 Take 1 tablet (8 30 tablet 2 02/19/2022 Active mg tabletIndications: mg) by mouth Squamous cell every 8 (eight) carcinoma of left lung hours as needed for nausea or vomiting. Nicoderm CQ 21 mg/24 Apply 2 patch to 56 patch 0 04/13/2022 Active hr transdermal skin and change patchIndications: patch daily as Tobacco dependence directed for syndrome tobacco cessation (alternate sites). Nicorette 2 mg mini Dissolve 1 324 lozenge 0 04/21/2022 Active lozengeIndications: lozenge (2 mg) in Tobacco dependence the mouth every 2 syndrome (two) hours as needed (smoking). Avoid acidic beverages 5 min before, during & after cyclobenzaprine Take 1 tablet (10 0 06/03/2022 Active (FLEXERIL) 10 mg mg) by mouth 2 tablet (two) times a day as needed. OLANZapine (ZyPREXA) 5 TAKE 0.5 45 tablet 3 06/28/2022 Active mg tabletIndications: (ONE-HALF) TABLET Other insomnia BY MOUTH EVERY 6 HOURS NEEDED FOR ANXIETY AND 1 TABLET AT BEDTIME FOR SLEEP Additional Information Patient not taking. Reason: No longer taking, Informant: Self, Reported on 08/18/2022 metoclopramide (Reglan) Take 1 tablet 90 tablet 3 06/28/2022 Active 5 mg tabletIndications: (5 mg) by mouth Early satiety 3 (three) times a day before meals. HYDROcodone-acetaminophe Take 1 tablet 120 tablet 0 08/18/2022 Active n (NORCO) 10 mg-325 mg by mouth every per tabletIndications: 4 (four) hours Neoplasm related pain as needed (acute) (chronic) (pain). HYDROcodone-acetaminophe Take 1 tablet 0 11/02/202101/14 Discontinued n (NORCO) 10 mg-325 mg by mouth as (Reorder) per tablet needed. methocarbamol (ROBAXIN) Take 500 mg by 0 07/15/202102/19 Discontinued 500 mg tablet mouth as needed. ascorbic acid (VITAMIN Take 1 tablet 0 04/28/2021 Discontinued C) 500 mg tablet by mouth daily. (Therapy completed) predniSONE (DELTASONE) Take 2 tablets 10 tablet 0 12/14/2021 0 12/19 20 mg tabletIndications: (40 mg) by Chronic obstructive mouth daily for pulmonary disease, not 5 days. otherwise specified doxycycline (Vibramycin) Take 1 capsule 10 capsule 0 2 12/19 100 MG (100 mg) by capsuleIndications: mouth twice Chronic obstructive daily for 5 pulmonary disease, not days. otherwise specified varenicline (CHANTIX) 1 One Tablet PO 56 tablet 0 12/17/2021 0 12/22 Discontinued mg tabletIndications: once a day x (Other ) Tobacco dependence days then twice syndrome a day Nicoderm CQ 21 mg/24 hr Apply 1 patch 28 patch 0 12/22/2021 0 01/20 Discontinued transdermal to skin and patchIndications: change patch Tobacco dependence daily as syndrome directed for tobacco cessation (alternate sites). buPROPion (WELLBUTRIN Take 1 tablet 30 tablet 0 12/22/2021 Discontinued XL) 150 mg 24 hr (150 mg) by tabletIndications: mouth every Tobacco dependence morning. syndrome ondansetron (ZOFRAN) 8 Take 1 tablet 30 tablet 2 01/06/2022 Discontinued mg tabletIndications: (8 mg) by mouth /2 022 (Reorder) Squamous cell carcinoma every 8 (eight) of left lung hours as needed for nausea or vomiting. HYDROcodone-acetaminophe Take 1 tablet 90 tablet 0 01/14/202202/15 Discontinued n (NORCO) 10 mg-325 mg by mouth as (Reorder) per tabletIndications: needed (pain). Neoplasm related pain (acute) (chronic) OLANZapine (ZyPREXA) 5 Take half 30 tablet 0 01/14/202202/22 Discontinued mg tabletIndications: tablet every 22 Other insomnia hours as needed for anxiety; take 1 tablet at night for sleep buPROPion (Wellbutrin Take 1 tablet 30 tablet 0 01/20/2022 Discontinued XL) 300 mg 24 hr (300 mg) by ( Side effects) tabletIndications: mouth every Tobacco dependence morning. syndrome Nicoderm CQ 21 mg/24 hr Apply 2 patch 56 patch 0 01/20/2022 0 02/22 Discontinued transdermal to skin and (Reord er) patchIndications: change patch Tobacco dependence daily as syndrome directed for tobacco cessation (alternate sites). buPROPion (Wellbutrin Take 1 tablet 30 tablet 0 02/02/2022 Discontinued XL) 150 mg 24 hr (150 mg) by ( Reorder) tabletIndications: mouth every Tobacco dependence morning. syndrome nystatin (MYCOSTATIN) Swish and 300 mL 0 02/09/202202/19 100,000 units/mL swallow 5 mL suspensionIndications: (500,000 Units) Oral thrush 4 (four) times a day for 10 days. HYDROcodone-acetaminophe Take 1 tablet 6 tablet 0 02/15/202202/19 Discontinued n (NORCO) 10 mg-325 mg by mouth as (Reorder) per tabletIndications: needed (pain). Neoplasm related pain (acute) (chronic) ondansetron (ZOFRAN) 8 Take 1 tablet 30 tablet 2 02/17/2022 Discontinued mg tabletIndications: (8 mg) by mouth /2 022 (Reorder) Squamous cell carcinoma every 8 (eight) of left lung hours as needed for nausea or vomiting. HYDROcodone-acetaminophe Take 1 tablet 90 tablet 0 02/19/202204/06 Discontinued n (NORCO) 10 mg-325 mg by mouth every /2 022 (Reorder) per tabletIndications: 6 (six) hours Neoplasm related pain as needed (acute) (chronic) (pain). OLANZapine (ZyPREXA) 5 TAKE 0.5 30 tablet 0 02/22/202206/28 Discontinued mg tabletIndications: (ONE-HALF) Other insomnia TABLET BY MOUTH EVERY 6 HOURS NEEDED FOR ANXIETY AND 1 TABLET AT BEDTIME FOR SLEEP Nicoderm CQ 21 mg/24 hr Apply 2 patch 56 patch 0 02/22/2022 0 03/19 Discontinued transdermal to skin and (Reord er) patchIndications: change patch Tobacco dependence daily as syndrome directed for tobacco cessation (alternate sites). buPROPion (Wellbutrin Take 1 tablet 30 tablet 0 02/22/2022 Discontinued XL) 150 mg 24 hr (150 mg) by ( Reorder) tabletIndications: mouth every Tobacco dependence morning. syndrome Nicoderm CQ 21 mg/24 hr Apply 2 patch 56 patch 0 03/19/2022 0 04/13 Discontinued transdermal to skin and /2021 (Reord er) patchIndications: change patch Tobacco dependence daily as syndrome directed for tobacco cessation (alternate sites). buPROPion (Wellbutrin Take 1 tablet 30 tablet 0 03/19/2022 Discontinued XL) 150 mg 24 hr (150 mg) by ( Reorder) tabletIndications: mouth every Tobacco dependence morning. syndrome HYDROcodone-acetaminophe Take 1 tablet 10 tablet 0 04/06/202205/18 Discontinued n (NORCO) 10 mg-325 mg by mouth every /2 022 (Reorder) per tabletIndications: 6 (six) hours Neoplasm related pain as needed (acute) (chronic) (pain). Nicorette 2 mg mini Dissolve 1 81 lozenge 0 04/13/202204/21 Discontinued lozengeIndications: lozenge (2 mg) (Reorder) Tobacco dependence in the mouth syndrome every 2 (two) hours as needed (smoking). Avoid acidic beverages 5 min before, during & after buPROPion (Wellbutrin Take 1 tablet 30 tablet 0 04/13/2022 09/ 15 Discontinued XL) 150 mg 24 hr (150 mg) by ( Reorder) tabletIndications: mouth every Tobacco dependence morning. syndrome potassium chloride Take 1 tablet 60 tablet 0 04/14/202206/28 Discontinued (KLOR-CON) 10 mEq CR (10 mEq) by tabletIndications: mouth twice Squamous cell carcinoma daily. of left lung amoxicillin-clavulanate Take 1 tablet 12 tablet 0 04/14/2022 0 04/14 Discontinued (Augmentin) 875 mg-125 (875 mg) by /2021 mg per mouth twice tabletIndications: daily. Squamous cell carcinoma of left lung amoxicillin-clavulanate Take 1 tablet 18 tablet 0 04/14/2022 0 04/23 (Augmentin) 875 mg-125 (875 mg) by /2021 mg per mouth twice tabletIndications: daily for 9 Squamous cell carcinoma days. of left lung buPROPion (Wellbutrin Take 1 tablet 30 tablet 2 05/13/2022 Discontinued XL) 150 mg 24 hr (150 mg) by tabletIndications: mouth every Tobacco dependence morning. syndrome HYDROcodone-acetaminophe Take 1 tablet 120 tablet 0 05/18/202206/16 Discontinued n (NORCO) 10 mg-325 mg by mouth every /2 022 (Reorder) per tabletIndications: 4 (four) hours Neoplasm related pain as needed (acute) (chronic) (pain). HYDROcodone-acetaminophe Take 1 tablet 60 tablet 0 06/16/202206/28 Discontinued n (NORCO) 10 mg-325 mg by mouth every /2 022 (Reorder) per tabletIndications: 4 (four) hours Neoplasm related pain as needed (acute) (chronic) (pain). HYDROcodone-acetaminophe Take 1 tablet 120 tablet 0 06/28/202208/18 Discontinued n (NORCO) 10 mg-325 mg by mouth every /2 022 (Reorder) per tabletIndications: 4 (four) hours Neoplasm related pain as needed (acute) (chronic) (pain). Active Problems Problem Noted Date Malnutrition of moderate degree 02/16/2022 Squamous cell carcinoma of left lung 12/23/2021 Chronic obstructive pulmonary disease 12/23/2021 Coronary arteriosclerosis 12/23/2021 Coronary artery disease of coronary artery bypass jorge alberto t 12/23/2021 Depression NOS 12/23/2021 Overview: 05/29 CMS regulatory import Chronic pain 12/23/2021 Tobacco dependence syndrome 12/17/2021 [...] late October, she was imaged with a C T. She had not had previous imaging done for quite some time, and the CT shows a new left hilar mass, partially obstructing the pulmonary artery lingular takeoff as well as potential obstruction of a li ngular bronchus. There may be a postobst ructive pneumonia component. Bronchoscopy was terminated due to worsened hemoptysis, and she is here for diagnosis. We discussed at length today that this h ad a high probability of being lung cancer. I think the best approach here would be to repeat bronchoscopy, potentially with endobronchial ultrasound to evaluate the mediastinal nodes. This may help to avoid biopsying the tumor which has shown itself to bleed in the past. We will send prebiopsy labs and EKG. Fernando woods placed a referral to the cardiopulmonary center [...] Encounters Date Type Specialty Care Team Description 08/04/2022 Infusion Infusion Services DavisJoanna newman Squamo us cell F, PROFESSOR OF ART HISTORY carcinoma of left GumMerrill funesie lung (Primary Dx) Y, RN 08/04/2022 Follow-Up Thoracic Medicine Joanna Davis Squamo us cell F, PROFESSOR OF ART HISTORY carcinoma of le ft lung (Primary D x) 08/04/2022 Hospital Encounter Radiology Joanna Davis Squam ous cell F, PROFESSOR OF ART HISTORY carcinoma of le ft lung 08/04/2022 Hospital Encounter Lab Davis, Joanna Squam ous cell F, PROFESSOR OF ART HISTORY carcinoma of le ft lung 08/04/2022 Orders Only Thoracic Medicine Joanna Davis F, PROFESSOR OF ART HISTORY 08/04/2022 Travel 07/20/2022 Hospital Encounter Radiation Oncology Deanne Bravo amous cell carcinoma of left lung (Primary Dx); MD Melvin Non-small cell lung cancer <Unspecified side> 07/20/2022 Orders Only Radiation Oncology Emily Lisa Upper lob e, lung Chunyi, ELECTROTYPER HELPER cancer <Left> (Primary Dx) 07/20/2022 Travel 2022 Hospital Encounter Lab Shelly Squamous cell MD Melvin carcinoma of le ft lung 2022 Ancillary Procedure Radiology Emily Lisa Non-smal l cell lung Chunyi, ELECTROTYPER HELPER cancer <Unspeci fied side> 2022 Travel 07/13/2022 Orders Only Radiation Oncology Paguinto, Squamous cell Katerine F carcinoma of le ft lung (Primary D x) 07/07/2022 Infusion Infusion Services DavisJoanna newman Squamo us cell F, PROFESSOR OF ART HISTORY carcinoma of left Comple, Gucci, lung (Primary Dx) RN 07/07/2022 Ancillary Procedure Radiology Joanna Davisa mous cell F, PROFESSOR OF ART HISTORY carcinoma of le ft lung 07/07/2022 Hospital Encounter Lab DavisJoanna newman Squam ous cell F, PROFESSOR OF ART HISTORY carcinoma of le ft lung 07/07/2022 Orders Only Thoracic Medicine Balta Lovett MD 07/07/2022 Orders Only Thoracic Medicine Li Ma MD Squamous cell carcinoma of le ft lung (Primary D x) 07/07/2022 Orders Only Thoracic Medicine Joanna Davis, PROFESSOR OF ART HISTORY 07/07/2022 Travel 06/09/2022 Infusion Infusion Services DavisJoanna newmanamo us cell F, PROFESSOR OF ART HISTORY carcinoma of le ft lung (Primary D x) 06/09/2022 Office Visit Thoracic Medicine Joanna Davis us cell F, PROFESSOR OF ART HISTORY carcinoma of le ft lung (Primary D x) 06/09/2022 Orders Only Thoracic Medicine Freddie Jolly MD 06/09/2022 Travel 06/08/2022 Hospital Encounter Radiology Joanna Davis ous cell F, PROFESSOR OF ART HISTORY carcinoma of le ft lung 06/08/2022 Hospital Encounter Lab Joanna Davis ous cell F, PROFESSOR OF ART HISTORY carcinoma of le ft lung 06/08/2022 Travel 05/12/2022 Hospital Encounter Infusion Services Li Ma MD Squamous cell [place], Jovita J, carcinoma of left RN lung (Primary D x) 05/12/2022 Hospital Encounter Lab Li Ma MD Squamou s cell carcinoma of le ft lung 05/12/2022 Hospital Encounter Radiation Oncology Deanne Bravo MD carcinoma of le ft lung 05/12/2022 Documentation Radiation Oncology Pamela Veloz 05/12/2022 Orders Only Thoracic Medicine Joanna Davis us cell F, PROFESSOR OF ART HISTORY carcinoma of le ft lung (Primary D x) 05/12/2022 Orders Only Head and Neck Mei Patel, Medical Oncology PharmD 05/12/2022 Orders Only Thoracic Medicine Jihan Chavez PharmD 05/12/2022 Travel 05/07/2022 Orders Only Thoracic Medicine Venecia Coles Squamous cell carcinoma of le ft lung (Primary D x) 04/21/2022 Ancillary Procedure Radiology Joanna Davis mous cell F, PROFESSOR OF ART HISTORY carcinoma of le ft lung 04/21/2022 Travel 04/19/2022 Orders Only Radiation Oncology Pamela Veloz cell C carcinoma of le ft lung (Primary D x) 04/14/2022 Office Visit Thoracic Medicine Li Ma MD Squamous cell carcinoma of le ft lung (Primary D x) 04/14/2022 Hospital Encounter Infusion Services Li Ma MD Squamous cell Calista, carcinoma of left NAIN Bergeron lung (Primary D x) 04/14/2022 Hospital Encounter Lab Joanna Davis Squam ous cell F, PROFESSOR OF ART HISTORY carcinoma of le ft lung 04/14/2022 Hospital Encounter Lab Joanna Davis Squam ous cell F, PROFESSOR OF ART HISTORY carcinoma of le ft lung 04/14/2022 Hospital Encounter Lab Li Ma MD Squamou s cell carcinoma of le ft lung 04/14/2022 Ancillary Procedure Radiology Clarita Mcdonnell Squamo us cell PA carcinoma of le ft lung 04/14/2022 Documentation Thoracic Medicine Ana Jane 04/14/2022 Travel 04/06/2022 Orders Only Radiation Oncology Demarcus Kern, Squamous cell Matthew carcinoma of le ft lung (Primary D x) 03/25/2022 Telephone Thoracic Medicine Xin Mcdonnell RN 03/19/2022 Orders Only Radiation Oncology Emily Lisa Non-small cell lung Jovanynyi, ELECTROTYPER HELPER cancer <Unspeci fied side> (Primary Dx) 03/17/2022 [...] Sukhjinder Cardoza MD Cooke, Sarah K, RD 03/15/2022 Travel 03/12/2022 Hospital Encounter Radiation Oncology Sukhjinder Cardoza MD 03/12/2022 Hospital Encounter Lab Dayne Bravo cell MD Melvin carcinoma of laisha ng <Left side> 03/12/2022 Travel 03/11/2022 Hospital Encounter Radiation Oncology Sukhjinder Cardoza MD 03/11/2022 Travel 03/10/2022 Hospital Encounter Radiation Oncology Sukhjinder Cardoaz MD 03/10/2022 Infusion Infusion Services Yoana Palacios, MAURILIO P Squamous cell To, carcinoma of le ft Sue V, RN lung (Prima ry Dx) 03/10/2022 Hospital Encounter Lab Yoana Palacios, DELINQUENCY COUNSELOR Squamo us cell carcinoma of le ft lung 03/10/2022 Office Visit Thoracic Medicine Li Ma MD Squamous cell carcinoma of le ft lung (Primary D x) 03/10/2022 Orders Only Thoracic Medicine Li Ma MD 03/10/2022 Orders Only Thoracic Medicine Niki Harmon, PharmD 03/10/2022 Orders Only Thoracic Medicine Niki Harmon, PharmD 03/10/2022 Travel 03/09/2022 Nutrition Nutrition Sukhjinder [...] D x) 03/03/2022 Hospital Encounter Lab Yoana Palacios, DELINQUENCY COUNSELOR Squamo us cell carcinoma of le ft lung 03/03/2022 Hospital Encounter Radiation Oncology Sukhjinder Cardoza MD 03/03/2022 Travel 03/03/2022 Orders Only Radiation Oncology Demarcus Yangvo, Squamous cell Matthew carcinoma of laisha ng <Left side> (Pr imary Dx) 03/02/2022 Nutrition Nutrition Sukhjinder Cardoza MD Cooke, Sarah K, BRIANNA 03/02/2022 Hospital Encounter Radiation Oncology Deanne Bravo MD carcinoma of le ft lung (Primary D x) 03/02/2022 Hospital Encounter Radiation Sukhjinder Garcia MD 03/02/2022 Travel 02/26/2022 Hospital Encounter Radiation Sukhjinder Garcia MD 02/26/2022 Travel 02/25/2022 Hospital Encounter Radiation Oncology Deanne Bravo MD carcinoma of laisha ng <Left side> 02/24/2022 Hospital Encounter Infusion Services Yoana Palacios, DELINQUENCY COUNSELOR Squamous cell White, Cheli carcinoma of left T, RN lung (Primary D x) 02/24/2022 Hospital Encounter Radiation Sukhjinder Garcia MD 02/24/2022 Hospital Encounter Lab Yoana Palacios, YE Squamo us cell carcinoma of left lung; Squamous cell c arcinoma of lung <Left side> 02/24/2022 Orders Only Thoracic Medicine Jihan Chavez, PharmD 02/24/2022 Orders Only Thoracic Medicine Li Ma MD 02/24/2022 Travel 02/24/2022 Orders Only Radiation Oncology Pamela Veloz us cell C carcinoma of laisha ng <Left side> (Pr imary Dx) 02/23/2022 Nutrition Nutrition Sukhjinder Cardoza MD Cooke, Sarah K, BRIANNA 02/23/2022 Hospital Encounter Radiation Sukhjinder Garcia MD 02/23/2022 Hospital Encounter Radiation Oncology Deanne Bravo MD carcinoma of le ft lung (Primary D x) 02/23/2022 Travel 02/22/2022 Hospital Encounter Radiation Oncology Sukhjinder Cardoza MD 02/22/2022 Orders Only Radiation Oncology Pamela Veloz us [...] Yoana Palacios FN P Squamous cell Comple, [place], carcinoma of left RN lung (Primary D x) 02/17/2022 Office Visit Thoracic Medicine Li Ma MD Squamous cell carcinoma of le ft lung 02/17/2022 Hospital Encounter Lab Yaona Palacios FNP Squamo us cell carcinoma of le ft lung 02/17/2022 Hospital Encounter Radiation Oncology Sukhjinder Cardoza MD 02/17/2022 Orders Only Thoracic Medicine Clarita Mcdonnell, Dayne cell PA carcinoma of le ft lung 02/17/2022 Travel 02/16/2022 Nutrition Nutrition Sukhjinder Cardoza MD Cooke, Sarah K, BRIANNA 02/16/2022 Hospital Encounter Radiation Oncology Sukhjinder Cardoza MD 02/16/2022 Hospital Encounter Radiation Oncology Deanne Barvo MD carcinoma of le ft lung (Primary D x) 02/16/2022 Orders Only Radiation Oncology Demarcus Kern, Squamous cell Matthew carcinoma of laisha ng <Left side> (Pr imary Dx) 02/16/2022 Travel 02/15/2022 Hospital Encounter Radiation Oncology Sukhjinder Cardoza MD 02/15/2022 Orders Only Thoracic Medicine Clarita Mcdonnell, PA 02/15/2022 Travel 02/12/2022 Emergency Emergency Medicine Juani Lisa MD Squam ous cell carcinoma of left lung (Primary Dx); Confusion 02/12/2022 Hospital Encounter Radiation Oncology Sukhjinder Cardoza MD 02/12/2022 Hospital Encounter Radiation Oncology Sukhjinder Cardoza MD 02/12/2022 Travel 02/12/2022 Telephone Radiation Oncology Erin Monroe, RN 02/11/2022 Hospital Encounter Radiation Oncology Sukhjinder Cardoza MD 02/11/2022 Travel 02/10/2022 Hospital Encounter Infusion Services Tresa Brewster quamous cell E, RN AGPCNP carcinoma of left Borje, Edwardo S, lung (Primar y Dx) RN 02/10/2022 Hospital Encounter Lab Philip, Yoana, DELINQUENCY COUNSELOR Squamo us cell carcinoma of le ft lung 02/10/2022 Hospital Encounter Radiation Oncology Sukhjinder Cardoza MD 02/10/2022 Orders Only Thoracic Medicine Tresa Brewster RN AGPCNP 02/10/2022 Travel 02/09/2022 Hospital Encounter Radiation Oncology Sukhjinder Cardoza MD 02/09/2022 Hospital Encounter Radiation Oncology Deanne Bravo MD carcinoma of le ft lung (Primary D x) 02/09/2022 Orders Only Radiation Oncology Emily Lisa Oral thru sh (Primary Chunyi, ELECTROTYPER HELPER Dx) 02/09/2022 Travel 02/08/2022 Hospital Encounter Radiation Oncology Sukhjinder Cardoza MD 02/08/2022 Nutrition Nutrition Sukhjinder Cardoza MD Cooke, Sarah K, BRIANNA 02/08/2022 Travel 02/08/2022 Orders Only Thoracic Medicine Yoana Palacios, YE Rosadoou s cell carcinoma of le ft lung (Primary D x) 02/05/2022 Hospital Encounter Radiation Oncology Sukhjinder Cardoza MD 02/05/2022 Orders Only Thoracic Medicine Tresa Brewster RN AGLISHA carcinoma of le ft lung (Primary D x) 02/05/2022 Orders Only Thoracic Medicine Greta Gould PA 02/05/2022 Orders Only Thoracic Medicine Michaela Grier APN 02/05/2022 Travel 02/05/2022 Orders Only Thoracic Medicine Xin Ellington APN 02/04/2022 Hospital Encounter Radiation Oncology Sukhjinder Cardoza MD 02/04/2022 Travel 02/03/2022 Infusion Infusion Services Clarita Mcdonnell, Squamous cell PA carcinoma of left Carlo, Alka M, lung (Primar y Dx) RN 02/03/2022 Hospital Encounter Radiation Oncology Sukhjinder Cardoza MD 02/03/2022 Hospital Encounter Lab Clarita Mcdonnell Squamou s cell PA carcinoma of le ft lung 02/03/2022 Travel 02/02/2022 Hospital Encounter Radiation Sukhjinder Garcia MD 02/02/2022 Hospital Encounter Radiation Oncology Deanne Bravo MD carcinoma of le ft lung (Primary D x) 02/02/2022 Orders Only Radiation Oncology Pamela Veloz Tana us cell C carcinoma of le ft [...] 01/27/2022 Orders Only Thoracic Medicine Clarita Mcdonnell, Dayne cell PA carcinoma of le ft lung (Primary D x) 01/26/2022 Hospital Encounter Radiation Oncology Sukhjinder Cardoza MD 01/20/2022 Orders Only Thoracic Medicine Clarita Mcdonnell, PA 01/11/2022 Hospital Encounter Radiology Melvin Bravo MD 01/11/2022 Hospital Encounter Cardiology Melvin Bravo MD 01/11/2022 Hospital Encounter Cardiology Emily Lisa Non-small cell lung Jovanynyi, ELECTROTYPER HELPER cancer <Unspeci fied side> 01/11/2022 Hospital Encounter [...] left Mangulabnan, lung (Primary D x) Estella Hernandez RN 01/06/2022 Office Visit Thoracic Medicine Li Ma MD Squamous cell carcinoma of le ft lung (Primary D x) 01/06/2022 Hospital Encounter Lab Clarita Mcdonnell Squamou s cell carcinoma of left lung; PA Squamous cell c arcinoma of lung <Left side>; Encounter for s creening for cardiovascular disorder 01/06/2022 Hospital Encounter Radiation Oncology Deanne Bravo MD carcinoma of laisha ng <Left side> 01/06/2022 Orders Only Radiation Oncology Emily Lisa Non-small cell lung LISHA Mccrary cancer <Unspeci fied side> (Primary Dx) 01/06/2022 Orders Only Radiation Oncology Magdiel, Pamela Squamo us cell C carcinoma of laisha ng <Left side> (Pr imary Dx) 01/06/2022 Documentation Radiation Oncology Magdiel Pamela C 01/06/2022 Orders Only Thoracic Medicine Clarita Mcdonnell, NANNETTE 01/06/2022 Travel 01/05/2022 Orders Only Radiation Oncology Magdiel, Pamela Squamo us cell C carcinoma of laisha ng <Left side> (Pr imary Dx) 01/04/2022 Orders Only Radiation Oncology Magdiel, Pamela Squamo us cell C carcinoma of laisha [...] Radiation Oncology Emily Lisa Non-small cell lung Chunyi, ELECTROTYPER HELPER cancer <Unspeci fied side> (Primary Dx) 12/29/2021 Travel 12/28/2021 Hospital Encounter Adan Ji MD 12/25/2021 Orders Only Thoracic Surgery Alexia Schultz, Chronic pain PA (Primary Dx) 12/25/2021 Orders Only Radiation Oncology Melvin Bravo MD 12/25/2021 Orders Only Radiation Oncology Shelly, Squamous cell MD Melvin carcinoma of le ft lung (Primary D x) 12/24/2021 Office Visit Thoracic Surgery Michael, Carcinoma, NOS of upper lobe, lung <Left>; MD Carter 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 12/24/2021 Travel 12/23/2021 Ancillary Procedure Radiology Chuy Srinivasan Carcin pj, NOS of MD Ruth Ann upper lobe, meena g <Left> 12/23/2021 Hospital Encounter Radiation Oncology Chuy Srinivasan quamous cell carcinoma of left lung (Primary [...] <Left> 12/23/2021 Orders Only Thoracic Surgery Alexia Schultz, PA 12/23/2021 Orders Only Thoracic Medicine Clarita Mcdonnell Squamous cell PA carcinoma of le ft [...] Celia Ellis APN 12/15/2021 Orders Only Pulmonology Franklin, Carcinoma, NOS of MD Baldemar upper lobe, lung <Left> (Primary Dx) 12/15/2021 Travel 12/14/2021 Anesthesia Event Anesthesiology Agustín Mc PA 12/14/2021 POEM Appointments Anesthesiology Sukhjinedr Cadroza MD 12/14/2021 Office Visit Pulmonology Ethan Askew MD Lung mass (Pr imary Dx); Hypoxemia; Chronic obstruc tive pulmonary disease, not otherwise specified 12/14/2021 Hospital Encounter Pulmonology Ethan Askew MD Hypoxem ia 12/14/2021 Hospital Encounter Pulmonology Ethan Askew MD Hypoxem ia 12/14/2021 Clinical Support Sukhjinder Roland Suspected COVID-19 (Primary Dx); MD Zi Lung mass Peter Dennis RN 12/14/2021 Documentation Jeff Lovell RN 12/14/2021 Travel 12/11/2021 Hospital Encounter Cardiology Sukhjinder Cardoza MD 12/11/2021 Hospital Encounter Radiology Sukhjinder Cardoza MD 12/11/2021 Travel 12/09/2021 Prep for Surgery Pulmonology Mackenney, Lung mass ( Primary YE Cheney Dx) 12/08/2021 Ancillary Procedure Radiology Sukhjinder Cardoza MD 12/08/2021 Ancillary Procedure Radiology Sukhjinder Cardoza MD 12/08/2021 Ancillary Procedure Radiology Sukhjinder Cardoza MD 12/08/2021 Hospital Encounter Lab Sukhjinder Cardoza MD 12/08/2021 Office Visit Internal Medicine Sukhjinder Cardoza Lung mass (Primary MD Zi Dx) 12/08/2021 NPR Patient Access Sukhjinder Cardoza MD 12/08/2021 Travel after 08/23/2021 Surgical History Surgery Date Site/Laterality Comments APPENDECTOMY 08/29/1978 - 08/28/1979 CORONARY ARTERY BYPASS 08/29/2016 - triple by pass GRAFT 08/28/2017 CYST REMOVAL 08/29/1979 - Bilateral wrist 08/28/1980 [facility] EBUS GUIDED 12/15/2021 N/A Procedure : BRONCHOSCOPY SAMPL 3/> NODE WITH EBUS 3 OR M ORE STATION/STRUX NODES; Surgeon: Chuy Srinivasan MD; Locat ion: MAIN PULM PROC; Servi ce: PULMONARY Medical History Medical History Date Comments Hypertension 2008 Myocardial infarction 2017 Peripheral vascular disease 2017 bi pass Neuropathy 2011 Asthma 2001 Chronic bronchitis 2018 Pneumonia 2021 Arthritis 2021 Depressive disorder 2010 Anxiety 2009 Basal cell carcinoma of skin 2020 NOSE [...] Tobacco Use Types Packs/Day Years Used Date Smoking Tobacco: Former Cigarettes 0.8 37 1984 - 03/18/2022 Smokeless Tobacco: Never Tobacco Cessation: Counseling Given: Yes Alcohol Use Standard Drinks/Week Comments Yes 3 (1 standard drink = 0.6 oz pure 2-.3 e very two weeks on average alcohol) Alcohol Habits Answer Date Recorded How often do you have a drink containing alcohol? 2-3 times a week 12/08/2021 How many drinks containing alcohol do you have on a Not aske d typical day when you are drinking? How often do you have six or more drinks on one Never 12/08/2021 occasion? Education Answer Date Recorded What is the highest level of school you have High school [employer] 12/08/2021 completed or the highest degree you have received? Sex Assigned at Date Recorded Female 11/25/2021 3:52 PM CDT Job Start Date Occupation Industry Not on file Not on file Not on file COVID-19 Exposure Response Date Recorded In the last 10 days, have you been in contact with No / Unsu re 08/04/2022 6:48 AM [employer] someone who was confirmed or suspected to have Coronavirus/COVID-19? Obstetrics History Last Filed Vital Signs Vital Sign Reading Time Taken Comments Blood Pressure 125/75 08/04/2022 12:46 PM [employer] Pulse 81 08/04/2022 12:46 PM [employer] Temperature 36.9 C (98.4 F) 08/04/2022 12:46 PM [employer] Respiratory Rate 18 08/04/2022 12:46 PM [employer] Oxygen Saturation 98% 08/04/2022 12:46 PM [employer] Inhaled Oxygen Concentration - - Weight 49.4 kg (108 lb 14.5 oz) 08/04/2022 11:11 AM [employer] Height 157 cm (5' 1.81") 03/17/2022 5:27 PM CDT Body Mass Index 20.04 03/17/2022 5:27 PM CDT Plan of Treatment Date Type Specialty Care Team Description 09/01/2022 Appointment Lab Li Ma MD [address] [place], [place] [address] (Wo rk) 09/01/2022 Infusion Infusion Services Li Ma MD [address] [place], [place] [address] (Wo rk) 09/28/2022 Appointment Lab Joanna Davis APN [address] [place], [place] [address] (Wo rk) 09/28/2022 Ancillary Procedure Radiology Noa Davis APN [address] [place], [place] [address] (Wo rk) 09/29/2022 Follow-Up Thoracic Medicine Li aM MD [address] [place], [place] [address] (Wo rk) 09/29/2022 Infusion Infusion Services Jermain Davis APN [address] [place], [place] [address] (Wo rk) 11/29/2022 Ancillary Procedure Radiology Emily Lisa, LISHA [address] [place], [place] [address] (Wo rk) 11/30/2022 Appointment Radiation Oncology Jhoana Bravo MD [address] [place], [place] [address] (Wo rk) Health Maintenance Due Date Last Done Comments COVID-19 Vaccination (3 - Pfizer risk 12/13/2020 11/15/2020 , 10/25/2020 series) Procedures Procedure Name Priority Date/Time Associated Diagnosis Comme nts CT CHEST ABDOMEN PELVIS Routine 08/04/2022 9:16 Squamous cell Results for this W CONTRAST AM [employer] carcinoma of left procedure are in lung the results section. POC CREATININE Routine 08/04/2022 8:17 Results fo r this AM [employer] procedure are i n the results section. FRACTIONATED BILIRUBIN Routine 08/04/2022 8:16 Squamous cell R esults for this AM [employer] carcinoma of left procedure are in lung the results section. TOTAL PROTEIN Routine 08/04/2022 8:16 Squamous cell Results fo r this AM [employer] carcinoma of left procedure are in lung the results section. ASPARTATE Routine 08/04/2022 8:16 Squamous cell Results for this AMINOTRANSFERASE AM [employer] carcinoma of left proced ure are in lung the results section. ALANINE Routine 08/04/2022 8:16 Squamous cell Results for this AMINOTRANSFERASE AM [employer] carcinoma of left proced ure are in lung the results section. ALKALINE PHOSPHATASE Routine 08/04/2022 8:16 Squamous cell Res ults for this AM [employer] carcinoma of left procedure are in lung the results section. ALBUMIN LEVEL Routine 08/04/2022 8:16 Squamous cell Results fo r this AM [employer] carcinoma of left procedure are in lung the results section. CALCIUM LEVEL TOTAL Routine 08/04/2022 8:16 Squamous cell Resu lts for this AM [employer] carcinoma of left procedure are in lung the results section. .GLOMERULAR FILTRATION Routine 08/04/2022 8:16 Squamous cell R esults for this RATE AM [employer] carcinoma of left procedure are in lung the results section. SERUM CREATININE Routine 08/04/2022 8:16 Squamous cell Results for this AM [employer] carcinoma of left procedure are in lung the results section. ELECTROLYTE PANEL Routine 08/04/2022 8:16 Squamous cell Result s for this AM [employer] carcinoma of left procedure are in lung the results section. BLOOD UREA NITROGEN Routine 08/04/2022 8:16 Squamous cell Resu lts for this AM [employer] carcinoma of left procedure are in lung the results section. GLUCOSE LEVEL Routine 08/04/2022 8:16 Squamous cell Results fo r this AM [employer] carcinoma of left procedure are in lung the results section. MANUAL DIFFERENTIAL Routine 08/04/2022 8:16 Squamous cell Resu lts for this AM [employer] carcinoma of left procedure are in lung the results section. Results CBC Routine 08/04/2022 8:16 Squamous cell Results for this AM [employer] carcinoma of left procedure are in lung the results section. THYROID STIMULATING Routine 08/04/2022 8:16 Squamous cell Resu lts for this HORMONE AM [employer] carcinoma of left procedure are in lung the results section. FREE THYROXINE Routine 08/04/2022 8:16 Squamous cell Results f or this AM [employer] carcinoma of left procedure are in lung the results section. TOTAL T3 Routine 08/04/2022 8:16 Squamous cell Results for this AM [employer] carcinoma of left procedure are in lung the results section. MAGNESIUM LEVEL Routine 08/04/2022 8:16 Squamous cell Results for this AM [employer] carcinoma of left procedure are in lung the results section. PHOSPHORUS LEVEL Routine 08/04/2022 8:16 Squamous cell Results for this AM [employer] carcinoma of left procedure are in lung the results section. COMPREHENSIVE METABOLIC Routine 08/04/2022 8:16 Squamous cell PANEL AM [employer] carcinoma of left lung COMPLETE BLOOD COUNT W/ Routine 08/04/2022 8:16 Squamous cell DIFFERENTIAL AM [employer] carcinoma of left lung RESEARCH PROTOCOL Routine 2022 2:42 Squamous cell Result s for this [id number] PM [employer] carcinoma of left procedure are in lung the results section. CT CHEST W CONTRAST Routine 2022 2:10 Non-small cell meena g Results for this PM [employer] cancer <Unspecified procedur e are in side> the results section. POC CREATININE Routine 2022 12:12 Results f or this PM [employer] procedure are i n the results section. US TRANSVAGINAL Routine 07/07/2022 2:13 Squamous cell Results for this PM [employer] carcinoma of left procedure are in lung the results section. FRACTIONATED BILIRUBIN Routine 07/07/2022 1:01 Squamous cell R esults for this PM [employer] carcinoma of left procedure are in lung the results section. TOTAL PROTEIN Routine 07/07/2022 1:01 Squamous cell Results fo r this PM [employer] carcinoma of left procedure are in lung the results section. ASPARTATE Routine 07/07/2022 1:01 Squamous cell Results for this AMINOTRANSFERASE PM [employer] carcinoma of left proced ure are in lung the results section. ALANINE Routine 07/07/2022 1:01 Squamous cell Results for this AMINOTRANSFERASE PM [employer] carcinoma of left proced ure are in lung the results section. ALKALINE PHOSPHATASE Routine 07/07/2022 1:01 Squamous cell Res ults for this PM [employer] carcinoma of left procedure are in lung the results section. ALBUMIN LEVEL Routine 07/07/2022 1:01 Squamous cell Results fo r this PM [employer] carcinoma of left procedure are in lung the results section. CALCIUM LEVEL TOTAL Routine 07/07/2022 1:01 Squamous cell Resu lts for this PM [employer] carcinoma of left procedure are in lung the results section. .GLOMERULAR FILTRATION Routine 07/07/2022 1:01 Squamous cell R esults for this RATE PM [employer] carcinoma of left procedure are in lung the results section. SERUM CREATININE Routine 07/07/2022 1:01 Squamous cell Results for this PM [employer] carcinoma of left procedure are in lung the results section. ELECTROLYTE PANEL Routine 07/07/2022 1:01 Squamous cell Result s for this PM [employer] carcinoma of left procedure are in lung the results section. BLOOD UREA NITROGEN Routine 07/07/2022 1:01 Squamous cell Resu lts for this PM [employer] carcinoma of left procedure are in lung the results section. GLUCOSE LEVEL Routine 07/07/2022 1:01 Squamous cell Results fo r this PM [employer] carcinoma of left procedure are in lung the results section. MANUAL DIFFERENTIAL Routine 07/07/2022 1:01 Squamous cell Resu lts for this PM [employer] carcinoma of left procedure are in lung the results section. Results CBC Routine 07/07/2022 1:01 Squamous cell Results for this PM [employer] carcinoma of left procedure are in lung the results section. THYROID STIMULATING Routine 07/07/2022 1:01 Squamous cell Resu lts for this HORMONE PM [employer] carcinoma of left procedure are in lung the results section. FREE THYROXINE Routine 07/07/2022 1:01 Squamous cell Results f or this PM [employer] carcinoma of left procedure are in lung the results section. TOTAL T3 Routine 07/07/2022 1:01 Squamous cell Results for this PM [employer] carcinoma of left procedure are in lung the results section. MAGNESIUM LEVEL Routine 07/07/2022 1:01 Squamous cell Results for this PM [employer] carcinoma of left procedure are in lung the results section. PHOSPHORUS LEVEL Routine 07/07/2022 1:01 Squamous cell Results for this PM [employer] carcinoma of left procedure are in lung the results section. COMPREHENSIVE METABOLIC Routine 07/07/2022 1:01 Squamous cell PANEL PM [employer] carcinoma of left lung COMPLETE BLOOD COUNT W/ Routine 07/07/2022 1:01 Squamous cell DIFFERENTIAL PM [employer] carcinoma of left lung CT CHEST ABDOMEN PELVIS Routine 06/08/2022 8:49 Squamous cell Results for this W CONTRAST PM CDT carcinoma of left procedure are in lung the results section. FRACTIONATED BILIRUBIN Routine 06/08/2022 5:32 Squamous cell R esults for this PM CDT carcinoma of left procedure are in lung the results section. TOTAL PROTEIN Routine 06/08/2022 5:32 Squamous cell Results fo r this PM CDT carcinoma of left procedure are in lung the results section. ASPARTATE Routine 06/08/2022 5:32 Squamous cell Results for this AMINOTRANSFERASE PM CDT carcinoma of left proced ure are in lung the results section. ALANINE Routine 06/08/2022 5:32 Squamous cell Results for this AMINOTRANSFERASE PM CDT carcinoma of left proced ure are in lung the results section. ALKALINE PHOSPHATASE Routine 06/08/2022 5:32 Squamous cell Res ults for this PM CDT carcinoma of left procedure are in lung the results section. ALBUMIN LEVEL Routine 06/08/2022 5:32 Squamous cell Results fo r this PM CDT carcinoma of left procedure are in lung the results section. CALCIUM LEVEL TOTAL Routine 06/08/2022 5:32 Squamous cell Resu lts for this PM CDT carcinoma of left procedure are in lung the results section. .GLOMERULAR FILTRATION Routine 06/08/2022 5:32 Squamous cell R esults for this RATE PM CDT carcinoma of left procedure are in lung the results section. SERUM CREATININE Routine 06/08/2022 5:32 Squamous cell Results for this PM CDT carcinoma of left procedure are in lung the results section. ELECTROLYTE PANEL Routine 06/08/2022 5:32 Squamous cell Result s for this PM CDT carcinoma of left procedure are in lung the results section. BLOOD UREA NITROGEN Routine 06/08/2022 5:32 Squamous cell Resu lts for this PM CDT carcinoma of left procedure are in lung the results section. GLUCOSE LEVEL Routine 06/08/2022 5:32 Squamous cell Results fo r this PM CDT carcinoma of left procedure are in lung the results section. MANUAL DIFFERENTIAL Routine 06/08/2022 5:32 Squamous cell Resu lts for this PM CDT carcinoma of left procedure are in lung the results section. Results CBC Routine 06/08/2022 5:32 Squamous cell Results for this PM CDT carcinoma of left procedure are in lung the results section. THYROID STIMULATING Routine 06/08/2022 5:32 Squamous cell Resu lts for this HORMONE PM CDT carcinoma of left procedure are in lung the results section. FREE THYROXINE Routine 06/08/2022 5:32 Squamous cell Results f or this PM CDT carcinoma of left procedure are in lung the results section. TOTAL T3 Routine 06/08/2022 5:32 Squamous cell Results for this PM CDT carcinoma of left procedure are in lung the results section. MAGNESIUM LEVEL Routine 06/08/2022 5:32 Squamous cell Results for this PM CDT carcinoma of left procedure are in lung the results section. PHOSPHORUS LEVEL Routine 06/08/2022 5:32 Squamous cell Results for this PM CDT carcinoma of left procedure are in lung the results section. COMPREHENSIVE METABOLIC Routine 06/08/2022 5:32 Squamous cell PANEL PM CDT carcinoma of left lung COMPLETE BLOOD COUNT W/ Routine 06/08/2022 5:32 Squamous cell DIFFERENTIAL PM CDT carcinoma of left lung FRACTIONATED BILIRUBIN Routine 05/12/2022 10:43 Squamous cell Results for this AM CDT carcinoma of left procedure are in lung the results section. TOTAL PROTEIN Routine 05/12/2022 10:43 Squamous cell Results f or this AM CDT carcinoma of left procedure are in lung the results section. ASPARTATE Routine 05/12/2022 10:43 Squamous cell Results fo r this AMINOTRANSFERASE AM CDT carcinoma of left proced ure are in lung the results section. ALANINE Routine 05/12/2022 10:43 Squamous cell Results fo r this AMINOTRANSFERASE AM CDT carcinoma of left proced ure are in lung the results section. ALKALINE PHOSPHATASE Routine 05/12/2022 10:43 Squamous cell Re sults for this AM CDT carcinoma of left procedure are in lung the results section. ALBUMIN LEVEL Routine 05/12/2022 10:43 Squamous cell Results f or this AM CDT carcinoma of left procedure are in lung the results section. CALCIUM LEVEL TOTAL Routine 05/12/2022 10:43 Squamous cell Res ults for this AM CDT carcinoma of left procedure are in lung the results section. .GLOMERULAR FILTRATION Routine 05/12/2022 10:43 Squamous cell Results for this RATE AM CDT carcinoma of left procedure are in lung the results section. SERUM CREATININE Routine 05/12/2022 10:43 Squamous cell Result s for this AM CDT carcinoma of left procedure are in lung the results section. ELECTROLYTE PANEL Routine 05/12/2022 10:43 Squamous cell Resul ts for this AM CDT carcinoma of left procedure are in lung the results section. BLOOD UREA NITROGEN Routine 05/12/2022 10:43 Squamous cell Res ults for this AM CDT carcinoma of left procedure are in lung the results section. GLUCOSE LEVEL Routine 05/12/2022 10:43 Squamous cell Results f or this AM CDT carcinoma of left procedure are in lung the results section. MANUAL DIFFERENTIAL Routine 05/12/2022 10:43 Squamous cell Res ults for this AM CDT carcinoma of left procedure are in lung the results section. Results CBC Routine 05/12/2022 10:43 Squamous cell Results fo r this AM CDT carcinoma of left procedure are in lung the results section. RESEARCH PROTOCOL Routine 05/12/2022 10:43 Squamous cell Resul ts for this [id number] AM CDT carcinoma of left procedure are in lung the results section. CKMB Routine 05/12/2022 10:43 Squamous cell Results fo r this AM CDT carcinoma of left procedure are in lung the results section. NT PRO BNP Routine 05/12/2022 10:43 Squamous cell Results fo r this AM CDT carcinoma of left procedure are in lung the results section. C REACTIVE PROTEIN Routine 05/12/2022 10:43 Squamous cell Resu lts for this AM CDT carcinoma of left procedure are in lung the results section. TROPONIN T Routine 05/12/2022 10:43 Squamous cell Results fo r this AM CDT carcinoma of left procedure are in lung the results section. THYROID STIMULATING Routine 05/12/2022 10:43 Squamous cell Res ults for this HORMONE AM CDT carcinoma of left procedure are in lung the results section. FREE THYROXINE Routine 05/12/2022 10:43 Squamous cell Results for this AM CDT carcinoma of left procedure are in lung the results section. TOTAL T3 Routine 05/12/2022 10:43 Squamous cell Results fo r this AM CDT carcinoma of left procedure are in lung the results section. MAGNESIUM LEVEL Routine 05/12/2022 10:43 Squamous cell Results for this AM CDT carcinoma of left procedure are in lung the results section. PHOSPHORUS LEVEL Routine 05/12/2022 10:43 Squamous cell Result s for this AM CDT carcinoma of left procedure are in lung the results section. COMPREHENSIVE METABOLIC Routine 05/12/2022 10:43 Squamous cell PANEL AM CDT carcinoma of left lung COMPLETE BLOOD COUNT W/ Routine 05/12/2022 10:43 Squamous cell DIFFERENTIAL AM CDT carcinoma of left lung US RENAL Routine 04/21/2022 10:25 Squamous cell Results fo r this AM CDT carcinoma of left procedure are in lung the results section. TRANSFUSE RED BLOOD Routine 04/14/2022 5:20 Squamous cell CELLS PM CDT carcinoma of left lung TMP CROSSMATCH Routine 04/14/2022 11:50 Results f or this INTERPRETATION AM CDT procedure are in the results section. CLOT EXPIRATION DATE Routine 04/14/2022 11:50 Res ults for this AM CDT procedure are i n the results section. TMP INTERPRETATION Routine 04/14/2022 11:50 Resul ts for this ANTIBODY SCREEN AM CDT procedure ar e in NEGATIVE the results section. URINALYSIS MICROSCOPIC Routine 04/14/2022 11:50 R esults for this AM CDT procedure are i n the results section. ANTIBODY SCREEN Routine 04/14/2022 11:50 Squamous cell Results for this AM CDT carcinoma of left procedure are in lung the results section. ABORH Routine 04/14/2022 11:50 Squamous cell Results fo r this AM CDT carcinoma of left procedure are in lung the results section. URINALYSIS WITH Routine 04/14/2022 11:50 Squamous cell Results for this MICROSCOPIC IF AM CDT carcinoma of left procedur e are in INDICATED lung the results section. TYPE AND SCREEN Routine 04/14/2022 11:50 Squamous cell AM CDT carcinoma of left lung CONFIRM ABORH TYPE Routine 04/14/2022 11:41 Resul ts for this AM CDT procedure are i n the results section. PRBC PRODUCT READY FOR Routine 04/14/2022 10:56 R esults for this DANCE HISTORIAN AM CDT procedure are i n the results section. PREPARE RBC Routine 04/14/2022 10:56 Squamous cell Results fo r this AM CDT carcinoma of left procedure are in lung the results section. FRACTIONATED BILIRUBIN Routine 04/14/2022 9:01 Squamous cell R esults for this AM CDT carcinoma of left procedure are in lung the results section. TOTAL PROTEIN Routine 04/14/2022 9:01 Squamous cell Results fo r this AM CDT carcinoma of left procedure are in lung the results section. ASPARTATE Routine 04/14/2022 9:01 Squamous cell Results for this AMINOTRANSFERASE AM CDT carcinoma of left proced ure are in lung the results section. ALANINE Routine 04/14/2022 9:01 Squamous cell Results for this AMINOTRANSFERASE AM CDT carcinoma of left proced ure are in lung the results section. ALKALINE PHOSPHATASE Routine 04/14/2022 9:01 Squamous cell Res ults for this AM CDT carcinoma of left procedure are in lung the results section. ALBUMIN LEVEL Routine 04/14/2022 9:01 Squamous cell Results fo r this AM CDT carcinoma of left procedure are in lung the results section. CALCIUM LEVEL TOTAL Routine 04/14/2022 9:01 Squamous cell Resu lts for this AM CDT carcinoma of left procedure are in lung the results section. .GLOMERULAR FILTRATION Routine 04/14/2022 9:01 Squamous cell R esults for this RATE AM CDT carcinoma of left procedure are in lung the results section. SERUM CREATININE Routine 04/14/2022 9:01 Squamous cell Results for this AM CDT carcinoma of left procedure are in lung the results section. ELECTROLYTE PANEL Routine 04/14/2022 9:01 Squamous cell Result s for this AM CDT carcinoma of left procedure are in lung the results section. BLOOD UREA NITROGEN Routine 04/14/2022 9:01 Squamous cell Resu lts for this AM CDT carcinoma of left procedure are in lung the results section. GLUCOSE LEVEL Routine 04/14/2022 9:01 Squamous cell Results fo r this AM CDT carcinoma of left procedure are in lung the results section. MANUAL DIFFERENTIAL Routine 04/14/2022 9:01 Squamous cell Resu lts for this AM CDT carcinoma of left procedure are in lung the results section. Results CBC Routine 04/14/2022 9:01 Squamous cell Results for this AM CDT carcinoma of left procedure are in lung the results section. RESEARCH PROTOCOL Routine 04/14/2022 9:01 Squamous cell Result s for this [id number] AM CDT carcinoma of left procedure are in lung the results section. THYROID STIMULATING Routine 04/14/2022 9:01 Squamous cell Resu lts for this HORMONE AM CDT carcinoma of left procedure are in lung the results section. FREE THYROXINE Routine 04/14/2022 9:01 Squamous cell Results f or this AM CDT carcinoma of left procedure are in lung the results section. TOTAL T3 Routine 04/14/2022 9:01 Squamous cell Results for this AM CDT carcinoma of left procedure are in lung the results section. MAGNESIUM LEVEL Routine 04/14/2022 9:01 Squamous cell Results for this AM CDT carcinoma of left procedure are in lung the results section. PHOSPHORUS LEVEL Routine 04/14/2022 9:01 Squamous cell Results for this AM CDT carcinoma of left procedure are in lung the results section. COMPREHENSIVE METABOLIC Routine 04/14/2022 9:01 Squamous cell PANEL AM CDT carcinoma of left lung COMPLETE BLOOD COUNT W/ Routine 04/14/2022 9:01 Squamous cell DIFFERENTIAL AM CDT carcinoma of left lung CT CHEST ABDOMEN W Routine 04/14/2022 8:03 Squamous cell Resul ts for this CONTRAST AM CDT carcinoma of left procedure are in lung the results section. POC CREATININE Routine 04/14/2022 6:44 Results fo r this AM CDT procedure are i n the results section. .GLOMERULAR FILTRATION Routine 03/17/2022 2:04 Squamous cell R esults for this RATE PM CDT carcinoma of left procedure are in lung the results section. SERUM CREATININE Routine 03/17/2022 2:04 Squamous cell Results for this PM CDT carcinoma of left procedure are in lung the results section. MANUAL DIFFERENTIAL Routine 03/17/2022 2:04 Squamous cell Resu lts for this PM CDT carcinoma of left procedure are in lung the results section. Results CBC Routine 03/17/2022 2:04 Squamous cell Results for this PM CDT carcinoma of left procedure are in lung the results section. GLUCOSE, RANDOM Routine 03/17/2022 2:04 Squamous cell Results for this PM CDT carcinoma of left procedure are in lung the results section. SERUM CREATININE Routine 03/17/2022 2:04 Squamous cell PM CDT carcinoma of left lung BLOOD UREA NITROGEN Routine 03/17/2022 2:04 Squamous cell Resu lts for this PM CDT carcinoma of left procedure are in lung the results section. MAGNESIUM LEVEL Routine 03/17/2022 2:04 Squamous cell Results for this PM CDT carcinoma of left procedure are in lung the results section. ELECTROLYTE PANEL Routine 03/17/2022 2:04 Squamous cell Result s for this PM CDT carcinoma of left procedure are in lung the results section. COMPLETE BLOOD COUNT W/ Routine 03/17/2022 2:04 Squamous cell DIFFERENTIAL PM CDT carcinoma of left lung RESEARCH PROTOCOL Routine 03/12/2022 12:41 Squamous cell Resul ts for this [id number] PM CDT carcinoma of lung procedure are in <Left side> the results section. .GLOMERULAR FILTRATION Routine 03/10/2022 9:52 Squamous cell R esults for this RATE AM CDT carcinoma of left procedure are in lung the results section. SERUM CREATININE Routine 03/10/2022 9:52 Squamous cell Results for this AM CDT carcinoma of left procedure are in lung the results section. GLUCOSE, RANDOM Routine 03/10/2022 9:52 Squamous cell Results for this AM CDT carcinoma of left procedure are in lung the results section. SERUM CREATININE Routine 03/10/2022 9:52 Squamous cell AM CDT carcinoma of left lung BLOOD UREA NITROGEN Routine 03/10/2022 9:52 Squamous cell Resu lts for this AM CDT carcinoma of left procedure are in lung the results section. MAGNESIUM LEVEL Routine 03/10/2022 9:52 Squamous cell Results for this AM CDT carcinoma of left procedure are in lung the results section. ELECTROLYTE PANEL Routine 03/10/2022 9:52 Squamous cell Result s for this AM CDT carcinoma of left procedure are in lung the results section. MANUAL DIFFERENTIAL Routine 03/10/2022 9:34 Squamous cell Resu lts for this AM CDT carcinoma of left procedure are in lung the results section. Results CBC Routine 03/10/2022 9:34 Squamous cell Results for this AM CDT carcinoma of left procedure are in lung the results section. COMPLETE BLOOD COUNT W/ Routine 03/10/2022 9:34 Squamous cell DIFFERENTIAL AM CDT carcinoma of left lung .GLOMERULAR FILTRATION Routine 03/03/2022 2:48 Squamous cell R esults for this RATE PM CDT carcinoma of left procedure are in lung the results section. SERUM CREATININE Routine 03/03/2022 2:48 Squamous cell Results for this PM CDT carcinoma of left procedure are in lung the results section. MANUAL DIFFERENTIAL Routine 03/03/2022 2:48 Squamous cell Resu lts for this PM CDT carcinoma of left procedure are in lung the results section. Results CBC Routine 03/03/2022 2:48 Squamous cell Results for this PM CDT carcinoma of left procedure are in lung the results section. GLUCOSE, RANDOM Routine 03/03/2022 2:48 Squamous cell Results for this PM CDT carcinoma of left procedure are in lung the results section. SERUM CREATININE Routine 03/03/2022 2:48 Squamous cell PM CDT carcinoma of left lung BLOOD UREA NITROGEN Routine 03/03/2022 2:48 Squamous cell Resu lts for this PM CDT carcinoma of left procedure are in lung the results section. MAGNESIUM LEVEL Routine 03/03/2022 2:48 Squamous cell Results for this PM CDT carcinoma of left procedure are in lung the results section. ELECTROLYTE PANEL Routine 03/03/2022 2:48 Squamous cell Result s for this PM CDT carcinoma of left procedure are in lung the results section. COMPLETE BLOOD COUNT W/ Routine 03/03/2022 2:48 Squamous cell DIFFERENTIAL PM CDT carcinoma of left lung .GLOMERULAR FILTRATION Routine 02/24/2022 9:25 Squamous cell R esults for this RATE AM CDT carcinoma of left procedure are in lung the results section. SERUM CREATININE Routine 02/24/2022 9:25 Squamous cell Results for this AM CDT carcinoma of left procedure are in lung the results section. MANUAL DIFFERENTIAL Routine 02/24/2022 9:25 Squamous cell Resu lts for this AM CDT carcinoma of left procedure are in lung the results section. Results CBC Routine 02/24/2022 9:25 Squamous cell Results for this AM CDT carcinoma of left procedure are in lung the results section. TROPONIN T Routine 02/24/2022 9:25 Squamous cell Results for this AM CDT carcinoma of lung procedure are in <Left side> the results section. RESEARCH PROTOCOL Routine 02/24/2022 9:25 Squamous cell Result s for this [id number] AM CDT carcinoma of lung procedure are in <Left side> the results section. GLUCOSE, RANDOM Routine 02/24/2022 9:25 Squamous cell Results for this AM CDT carcinoma of left procedure are in lung the results section. SERUM CREATININE Routine 02/24/2022 9:25 Squamous cell AM CDT carcinoma of left lung BLOOD UREA NITROGEN Routine 02/24/2022 9:25 Squamous cell Resu lts for this AM CDT carcinoma of left procedure are in lung the results section. MAGNESIUM LEVEL Routine 02/24/2022 9:25 Squamous cell Results for this AM CDT carcinoma of left procedure are in lung the results section. ELECTROLYTE PANEL Routine 02/24/2022 9:25 Squamous cell Result s [...] T Routine 02/03/2022 9:55 Squamous cell Results for this AM CDT [...] ECHOCARDIOGRAM Routine 01/07/2022 3:48 Squamous cell Results f or this STRAIN/SPECKLE TRACKING PM CDT carcinoma of [...] 10:58 Squamous cell Resul ts for this [id number] AM CDT carcinoma of lung procedure are [...] SUBSEQUENT Routine 12/23/2021 4:54 Carcinoma, NOS of Res ults for this TREATMENT STRATEGY PM CDT upper lobe, lung proce dure are in <Left> the results section. NGS BLOOD CONTROL Routine 12/23/2021 1:13 Squamous cell Res ults for this PM [...] W WO CONTRAST Routine 12/22/2021 8:43 Carcinoma, NOS of Results for this PM CDT upper lobe, lung procedure a re in <Left> the results section. AFB CULTURE W/ SMEAR Now 12/15/2021 3:47 Resu lts for this PM CDT procedure are i n the results section. PATHOLOGY BIOPSY Routine 12/15/2021 3:03 Lung mass Results for this INTERPRETATION PM CDT procedure are in the results section. CYTOLOGY IMAGE-GUIDED Routine 12/15/2021 2:59 Lung mass Res ults for this FNA INTERPRETATION PM CDT procedure are in the results section. CYTOLOGY IMAGE-GUIDED Routine 12/15/2021 2:53 Lung mass Res ults for this FNA INTERPRETATION PM CDT procedure are in the results section. CYTOLOGY IMAGE-GUIDED Routine 12/15/2021 2:49 Lung mass Res ults for this FNA INTERPRETATION PM CDT procedure are in the results section. CYTOLOGY IMAGE-GUIDED Routine 12/15/2021 2:47 Lung mass Res ults for this FNA INTERPRETATION PM CDT procedure are in the results section. CYTOLOGY IMAGE-GUIDED Routine 12/15/2021 2:44 Lung mass Res ults for this FNA INTERPRETATION PM CDT procedure are in the results section. CYTOLOGY IMAGE-GUIDED Routine 12/15/2021 2:39 Lung mass Res ults for this FNA INTERPRETATION PM CDT procedure [...] SPIROMETRY W/O Routine 12/14/2021 3:50 Hypoxemia Results fo r this DILATORS, DLCO AND BODY PM CDT proc edure are in PLETHSMOGRAPHIC LUNG the res ults VOLUMES section. 6 MINUTE WALK TEST STAT 12/14/2021 3:16 Hypoxemia PM CDT COVID-19 Routine 12/14/2021 7:25 Suspected COVID-19 Result s for this (SARS-COV-2) PCR AM CDT procedure a re in ASYMPTOMATIC the results section. US LEG VENOUS DOPPLER Routine 12/11/2021 4:51 Lung mass Res ults for this LEFT PM CDT procedure are i n the results section. EKG, 12-LEAD Routine 12/11/2021 Lung mass (SCHEDULED) TMP HCVAB INTERP Routine 12/08/2021 5:50 Results for this PM CDT procedure are i n the results section. HEPATITIS B SURFACE AG Routine 12/08/2021 5:50 Re sults for this W/CONFIRM PM CDT procedure are i n the results section. HEPATITIS B CORE TOTAL Routine 12/08/2021 5:50 Re sults for this ANTIBODY PM CDT procedure are i n the results section. MANUAL DIFFERENTIAL Routine 12/08/2021 5:50 Lung mass Resul ts for this PM CDT procedure are i n the results section. Results CBC Routine 12/08/2021 5:50 Lung mass Results for this PM CDT procedure are i n the results section. FRACTIONATED BILIRUBIN Routine 12/08/2021 5:50 Lung mass Re sults for this PM CDT procedure are i n the results section. TOTAL PROTEIN Routine 12/08/2021 5:50 Lung mass Results for this PM CDT procedure are i n the results section. ASPARTATE Routine 12/08/2021 5:50 Lung mass Results for this AMINOTRANSFERASE PM CDT procedure a re in the results section. ALANINE Routine 12/08/2021 5:50 Lung mass Results for this AMINOTRANSFERASE PM CDT procedure a re in the results section. ALKALINE PHOSPHATASE Routine 12/08/2021 5:50 Lung mass Resu lts for this PM CDT procedure are i n the results section. ALBUMIN LEVEL Routine 12/08/2021 5:50 Lung mass Results for this PM CDT procedure are i n the results section. CALCIUM LEVEL TOTAL Routine 12/08/2021 5:50 Lung mass Resul ts for this PM CDT procedure are i n the results section. .GLOMERULAR FILTRATION Routine 12/08/2021 5:50 Lung mass Re sults for this RATE PM CDT procedure are i n the results section. SERUM CREATININE Routine 12/08/2021 5:50 Lung mass Results for this PM CDT procedure are i n the results section. ELECTROLYTE PANEL Routine 12/08/2021 5:50 Lung mass Results for this PM CDT procedure are i n the results section. BLOOD UREA NITROGEN Routine 12/08/2021 5:50 Lung mass Resul ts for this PM CDT procedure are i n the results section. GLUCOSE LEVEL Routine 12/08/2021 5:50 Lung mass Results for this PM CDT procedure are i n the results section. T-SPOT TUBERCULOSIS Routine 12/08/2021 5:50 Lung mass Resul ts for this PM CDT procedure are i n the results section. HISTOPLASMA ANTIBODY Routine 12/08/2021 5:50 Lung mass Resu lts for this SCREEN, SERUM PM CDT procedure are in the results section. COCCIDIOIDES ANTIBODY Routine 12/08/2021 5:50 Lung mass Res ults for this PM CDT procedure are i n the results section. THYROID STIMULATING Routine 12/08/2021 5:50 Lung mass Resul ts for this HORMONE PM CDT procedure are i n the results section. HEPATITIS C VIRUS Routine 12/08/2021 5:50 Lung mass Results for this ANTIBODY PM CDT procedure are i n the results section. HEPATITIS B CORE Routine 12/08/2021 5:50 Lung mass Results for this ANTIBODY PM CDT procedure are i n the results section. HEPATITIS B SURFACE Routine 12/08/2021 5:50 Lung mass Resul ts for this ANTIGEN, SERUM PM CDT procedure [...] PM CDT CRYPTOCOCCAL ANTIGEN, Routine 12/08/2021 5:50 Res ults for this SERUM PATH REVIEW PM CDT procedure are in the results section. CRYPTOCOCCAL ANTIGEN, Routine 12/08/2021 5:50 Lung mass Res ults for this SERUM PM CDT procedure are i n the results section. OSI INTERVENTIONAL Routine 11/24/2021 2:13 Cancer Result s for this PM CDT procedure are i n the results section. OSI CT CHEST Routine 11/23/2021 2:12 Cancer Results for this PM CDT procedure are i n the results section. OSI CHEST Routine 11/22/2021 2:12 Cancer Results for this PM CDT procedure are i n the results section. after 08/23/[address] Chest Abdomen Pelvis with Contrast (08/04/2022 9:16 AM LOCKSTITCH ZIPPER SETTER)Only the most recent of2 resultswithin the time period is included. Anatomical Region Laterality Modality Abdomen, Pelvis, Chest Computed Tomograp hy Specimen (Source) Anatomical Collection Method Collection Time Re ceived Time Location / / Volume Laterality 08/04/2022 9:33 AM LOCKSTITCH ZIPPER SETTER Impressions 08/04/2022 9:58 AM LOCKSTITCH ZIPPER SETTER * Stable left hilar/perihilar soft tissue thickening consistent with residua of treated tumor/posttreatment changes. Stable left upper lobes radiation fibrosis. No findings to suggest local neoplasm recurrence. * No new or progressive metastatic dis ease. * Stable fat-containing left adnexal m ass. 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 CT ches t abdomen pelvis 06/08/2022. Technique: CT of the chest, abdomen, pel vis was performed with intravenous contrast. Findings: The lungs are emphysematous. Stable soft tissue thickening in the left hilum and perihilar region (image 43 series 301). Stable sequelae of radiation therapy in the left upper lobe. Scarring in the lung apices. Small nodules in the right uppe r lobe (image 28) and left lower lobe (image 55) are stable. No new suspicious lung nodules. Mild diffuse bronchial wall thickening and scattered endobronchial mucoid impaction. Small calcified left pleural plaque is s table, image 85. No pleural effusion. Subcentimeter mediastinal lymph nodes ar e stable. No new lymphadenopathy. Heart size is normal. No pericardial eff usion. Status post coronary artery bypass graft. Small hiatal hernia. Cholelithiasis/orga nized sludge within the gallbladder without evidence of cholecystitis. Stable hyperenhancing focus in the posterior right hepatic lobe, likely hemangioma/aspirati on. Minimal intrahepatic biliary ductal dilation is unchanged. The pancreas, spleen, adrenals are unrem arkable. Stable right renal cyst. No hydronephrosis. Small and large bowel loops are normal i n caliber. Diverticulosis of the colon without evidence of diverticulitis. The urinary bladder is unremarkable. Sta ble fat density lesion in the left adnexa. Uterus is unremarkable within the limitation of CT. No ascites. Low abdominal or pelvic lymphadenopathy. Advanced aortoiliac atherosclerosis. No suspicious skeletal lesions. 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 CT ches t abdomen pelvis 06/08/2022. Technique: CT of the chest, abdomen, pel vis was performed with intravenous contrast. Findings: The lungs are emphysematous. Stable soft tissue thickening in the left hilum and perihilar region (image 43 series 301). Stable sequelae of radiation therapy in the left upper lobe. Scarring in the lung apices. Small nodules in the right upper lobe (i mage 28) and left lower lobe (image 55) are stable. No new suspicious lung nodules. Mild diffuse bronchial wall thickening and scattered endobronchial mucoid impaction. Small calcified left pleural plaque is s table, image 85. No pleural effusion. Subcentimeter mediastinal lymph nodes ar e stable. No new lymphadenopathy. Heart size is normal. No pericardial eff usion. Status post coronary artery bypass graft. Small hiatal hernia. Cholelithiasis/orga nized sludge within the gallbladder without evidence of cholecystitis. Stable hyperenhancing focus in the posterior right hepatic lobe, likely hemangioma/aspiration. Minimal intrahepatic biliary ductal dilation is unchanged. The pancreas, spleen, adrenals are unrem arkable. Stable right renal cyst. No hydronephrosis. Small and large bowel loops are normal i n caliber. Diverticulosis of the colon without evidence of diverticulitis. The urinary bladder is unremarkable. Sta ble fat density lesion in the left adnexa. Uterus is unremarkable within the limitation of CT. No ascites. Low abdominal or pelvic lymphadenopathy. Advanced aortoiliac atherosclerosis. No suspicious skeletal lesions. IMPRESSION: * Stable left hilar/perihilar soft tissu e thickening consistent with residua of treated tumor/posttreatment changes. Stable left upper lobes radiation fibrosis. No findings to suggest local neoplasm recurrence. * No new or progressive metastatic disea se. * Stable fat-containing left adnexal mas s. Joanna Davis PROFESSOR OF ART HISTORY [facility] [place] ORDERABLES POC Creatinine (08/04/2022 8:17 AM LOCKSTITCH ZIPPER SETTER)Only the most recent of3 resultswithin the time period is included. P athologist Signature POC Crea 0.9 0.6 - 1.3 POC [facility] mg/dL Comment: Medications, especially hydroxyurea or s upplements, such as ascorbate, can interfere with test results causing a falsely and significantly higher result than expected. If a problem is suspected with a patient's result, a sample should be sent to the laboratory for confirmatory testing. Method description: The i-STAT is an sandra [...] analyte concentration by an electrochemical assay. POC EGFR 72 >=60 mL/min/1.73 sq. m POC [facility] Comment: The eGFRcr is calculated with the 2020 C KD-EPI creatinine equation using creatinine, patient's age, and sex for adults 18 years of age and older. Other factors, especially muscle mass, may affect accuracy and need to be considered. According to the Kidney Disease: Improvi ng Global Outcomes (KDIGO) CKD Work Group 2012 Clinical Practice Guideline, chronic kidney disease (CKD) is defined as the abnormalities of kidney structure or function, present for more than 3 months, with implications for health. CKD should be c lassified by cause, GFR category, and albuminuria category. KDIGO guidelines provide the following GFR categories Stage Description GFR mL/min/1.73 m2 G1* Normal or high >= 90 G2* Mildly decreased 60-89 G3a Mildly to moderately decreased 45-59 G3b Moderately to severely decreased 30- 44 G4 Severely decreased 15-29 G5 Kidney failure <15 *In the absence of evidence of kidney da mage, neither G1 nor G2 fulfill criteria for CKD. POC Clean Dev Yes POC [facility] Performing Lab [facility] POC TELCO R Comment: [facility] Clinical Lab, [address] [place] [id number]; Lab Direct or: Hayde King MD Specimen Anatomical Collection Method Collection Time Receive d Time (Source) Location / / Volume Laterality Blood 08/04/2022 8:17 AM 8:17 LOCKSTITCH ZIPPER SETTER AM LOCKSTITCH ZIPPER SETTER Joanna Davis APN POCT ORDERABLES - DEVICE Performing Organization Address City/State/ZIP Code Phon e Number POC [facility] .Serum Creatinine (08/04/2022 8:16 AM LOCKSTITCH ZIPPER SETTER)Only the most recent of15 results within the time period is included. athologist Signature Creatinine 0.94 0.51 - 0.95 [facility] mg/dL [facility] Specimen Anatomical Collection Method Collection Time Receive d Time (Source) Location / / Volume Laterality Blood 08/04/2022 8:16 AM 2 9:21 LOCKSTITCH ZIPPER SETTER AM LOCKSTITCH ZIPPER SETTER Joanna Davis APN LAB BLOOD ORDERABLES Performing Organization Address City/State/ZIP Code Phon e Number [facility] CANCER Unless otherwise noted, [place] [address] CENTER all lab tests performed by: Division of Pathology and Laboratory Medicine [address] (ABNORMAL) .CBC (08/04/2022 8:16 AM LOCKSTITCH ZIPPER SETTER)Only the most recent of15 resultswithin the time period is included. Analysis Performed At Patho logist Time Signature WBC 4.1 4.0 - 11.0 [facility] K/uL DIAGNOSTIC CENTER RBC 4.39 4.00 - [facility] 5.50 M/uL DIAGNOSTIC CENTER Hgb 14.2 12.0 - [facility] 16.0 gm/dL DIAGNOSTIC CENTER Hct 42.5 37.0 - [facility] 47.0 % DIAGNOSTIC CENTER MCV 97 82 - 98 fL [facility] DIAGNOSTIC CENTER MCH 32.3 (H) 27.0 - [facility] 31.0 pg DIAGNOSTIC CENTER MCHC 33.4 31.0 - [facility] 36.0 gm/dL DIAGNOSTIC CENTER RDW-SD 47.8 (H) 35.1 - [facility] 46.3 fL DIAGNOSTIC CENTER RDW-CV 13.4 12.0 - [facility] 15.5 % DIAGNOSTIC CENTER Platelet count 198 140 - 440 [facility] K/uL DIAGNOSTIC CENTER MPV 9.4 4.0 - 10.4 [facility] DIAGNOSTIC CENTER INRBC 0.0 <=0.0 % [facility] DIAGNOSTIC CENTER Comment: The INRBC (instrument NRBC) value reflec [...] (Source) Location / / Volume Laterality Blood 08/04/2022 8:16 AM 2 8:32 LOCKSTITCH ZIPPER SETTER AM LOCKSTITCH ZIPPER SETTER Joanna F Davis PROFESSOR OF ART HISTORY LAB BLOOD ORDERABLES Performing Organization Address City/[facility] [address]/[facility] Code Phon e Number [facility] DIAGNOSTIC Unless otherwise noted, [place] [address] [place] all lab tests performed by: Division of Pathology and Laboratory Medicine [address] Glomerular Filtration Rate (08/04/2022 8:16 AM LOCKSTITCH ZIPPER SETTER)Only the most recent of15 resultswithin the time period is included. athologist Signature eGFR 69 >=60 [facility] mL/min/1.73 [facility] sq. m Comment: The eGFRcr is calculated with the 2020 KD-EPI creatinine equation using creatinine, patient's age, and sex for adults 18 years of age and older. Other factors, especially muscle mass, may affect accuracy and need to be considered. According to the Kidney Disease: Improvi ng Global Outcomes (KDIGO) CKD Work Group 2012 Clinical Practice Guideline, chronic kidney disease (CKD) is defined as the abnormalities of kidney structure or function, present for more than 3 months, with implications for health. CKD should be c lassified by cause, GFR category, and albuminuria category. KDIGO guidelines provide the following GFR categories Stage Description GFR mL/min/1.73 m2 G1* Normal or high >= 90 G2* Mildly decreased 60-89 G3a Mildly to moderately decreased 45-59 G3b Moderately to severely decreased 30- 44 G4 Severely decreased 15-29 G5 Kidney failure <15 *In the absence of evidence of kidney da mage, neither G1 nor G2 fulfill criteria for CKD. Specimen Anatomical Collection Method Collection Time Receive d Time (Source) Location / / Volume Laterality Blood 08/04/2022 8:16 AM 2 9:21 LOCKSTITCH ZIPPER SETTER AM LOCKSTITCH ZIPPER SETTER Joanna DASN LAB BLOOD ORDERABLES Performing Organization Address City/[facility] [address]/[facility] Code Phon e Number [facility] CANCER Unless otherwise noted, [place] [address] [place] all lab tests performed by: Division of Pathology and Laboratory Medicine [address] Fractionated Bilirubin (08/04/2022 8:16 AM LOCKSTITCH ZIPPER SETTER)Only the most recent of7 results within the time period is included. athologist Signature Bili Total <0.3 <=1.2 mg/dL [facility] Comment: Direct and indirect bilirubin will not b e reported when Total bilirubin result is <0.3 mg/dL Indocyanine Green (ICG) may cause falsel y elevated bilirubin results. Total and direct bilirubin must not be measured from samples containing indocyanine green. False elevation of total bilirubin can b e seen in patients with IgG concentrations above 28 g/L. Specimen Anatomical Collection Method Collection Time Receive d Time (Source) Location / / Volume Laterality Blood 08/04/2022 8:16 AM 9:21 LOCKSTITCH ZIPPER SETTER AM LOCKSTITCH ZIPPER SETTER Joanna Davis APN LAB BLOOD ORDERABLES Performing Organization Address City/State/ZIP Code Phon e Number [facility] CANCER Unless otherwise noted, [place] [address] [place] all lab tests performed by: Division of Pathology and Laboratory Medicine [address] [place] (ABNORMAL) Differential (08/04/2022 8:16 AM LOCKSTITCH ZIPPER SETTER)Only the most recent of15 resultswithin the time period is included. athologist Signature Neutrophil % 68.9 (H) 42.0 - [facility] 66.0 % DIAGNOSTIC CENTER Lymphocyte % 15.9 (L) 24.0 - [facility] 44.0 % DIAGNOSTIC CENTER Monocyte % 8.7 (H) 2.0 - 7.0 [facility] % DIAGNOSTIC CENTER Eosinophil % 5.3 (H) 1.0 - 4.0 [facility] % DIAGNOSTIC CENTER Basophil % 0.7 0.0 - 1.0 [facility] % DIAGNOSTIC CENTER IGRE % 0.5 (H) 0.0 - 0.4 [facility] % DIAGNOSTIC CENTER Comment: IGRE % count includes Metamyelo cytes, Myelocytes, and Promyelocytes. Neutrophil Abs 2.85 1.70 - 7.30 K/uL [facility] Lymphocyte Abs 0.66 (L) 1.00 - 4.80 K/uL [facility] Monocyte Abs 0.36 0.08 - 0.70 K/uL CO TY[facility]E [facility] Eosinophil Abs 0.22 0.04 - 0.40 K/uL [facility] Basophil Abs 0.03 0.00 - 0.10 K/uL [facility] T[facility] IG Abs 0.02 0.00 - 0.04 K/uL CO MD NACHO [facility] Specimen Anatomical Collection Method Collection Time Receive d Time (Source) Location / / Volume Laterality Blood 08/04/2022 8:16 AM 2 8:32 LOCKSTITCH ZIPPER SETTER AM LOCKSTITCH ZIPPER SETTER Joanna Hollisppard JEAN CLAUDE LAB BLOOD ORDERABLES Performing Organization Address City/[facility] [address]/ZIP Code Phon e Number [facility] DIAGNOSTIC Unless otherwise noted, [place], [place] [address] [place] all lab tests performed by: Division of Pathology and Laboratory Medicine [address] [place] [address] BUN (08/04/2022 8:16 AM LOCKSTITCH ZIPPER SETTER)Only the most recent of15 resultswithin the time period is included. athologist Signature BUN 13 6 - 23 [facility] mg/dL [facility] Specimen Anatomical Collection Method Collection Time Receive d Time (Source) Location / / Volume Laterality Blood 08/04/2022 8:16 AM 2 9:21 LOCKSTITCH ZIPPER SETTER AM LOCKSTITCH ZIPPER SETTER Joanna Hollispaty SILVERIO LAB BLOOD ORDERABLES Performing Organization Address City/[facility] [address]/ZIP Code Phon e Number [facility] CANCER Unless otherwise noted, [place] [address] MCCLURE all lab tests performed by: Division of Pathology and Laboratory Medicine [address] [place], [place] [address] T3 (08/04/2022 8:16 AM LOCKSTITCH ZIPPER SETTER)Only the most recent of5 resultswithin the time period is included. athologist Signature T3 Total 105 80 - 200 [facility] ng/dL [facility] Specimen Anatomical Collection Method Collection Time Receive d Time (Source) Location / / Volume Laterality Blood 08/04/2022 8:16 AM 2 9:07 LOCKSTITCH ZIPPER SETTER AM LOCKSTITCH ZIPPER SETTER Joanna Hollispaty SILVERIO LAB BLOOD ORDERABLES Performing Organization Address City/[facility] [address]/ZIP Code Phon e Number [facility] CANCER Unless otherwise noted, [place] [address] M[place]LURE all lab tests performed by: Division of Pathology and Laboratory Medicine [address] [place], [place] [address] ALT (08/04/2022 8:16 AM LOCKSTITCH ZIPPER SETTER)Only the most recent of8 resultswithin the time period is included. athologist Signature ALT 8 <=33 U/L [facility] Specimen Anatomical Collection Method Collection Time Receive d Time (Source) Location / / Volume Laterality Blood 08/04/2022 8:16 AM 2 9:21 LOCKSTITCH ZIPPER SETTER AM LOCKSTITCH ZIPPER SETTER Joanna Davis PROFESSOR OF ART HISTORY LAB BLOOD ORDERABLES Performing Organization Address City/[facility] [address]/ZIP Code Phon e Number [facility] CANCER Unless otherwise noted, [address] all lab tests performed by: Division of Pathology and Laboratory Medicine [facility] [place] Aspartate Aminotransferase (08/04/2022 8:16 AM LOCKSTITCH ZIPPER SETTER)Only the most recent of8 resultswithin the time period is included. P athologist Signature AST 18 <=32 U/L [facility] Specimen Anatomical Collection Method Collection Time Receive d Time (Source) Location / / Volume Laterality Blood 08/04/2022 8:16 AM 2 9:21 LOCKSTITCH ZIPPER SETTER AM LOCKSTITCH ZIPPER SETTER Joanna Hollisppard PROFESSOR OF ART HISTORY LAB BLOOD ORDERABLES Performing Organization Address [facility] [address]/[facility] Phon e Number [facility] CANCER Unless otherwise noted, [address] all lab tests performed by: Division of Pathology and Laboratory Medicine [facility] [place] TSH (08/04/2022 8:16 AM LOCKSTITCH ZIPPER SETTER)Only the most recent of6 resultswithin the time period is included. athologist Signature TSH 1.96 0.27 - 4.20 [facility] mcunit/mL [facility] Specimen Anatomical Collection Method Collection Time Receive d Time (Source) Location / / Volume Laterality Blood 08/04/2022 8:16 AM 2 9:21 LOCKSTITCH ZIPPER SETTER AM LOCKSTITCH ZIPPER SETTER Joanna Hollisppard PROFESSOR OF ART HISTORY LAB BLOOD ORDERABLES Performing Organization Address City/[facility] [address]/ZIP Code Phon e Number [facility] CANCER Unless otherwise noted, [address] all lab tests performed by: Division of Pathology and Laboratory Medicine [address] [place] Free T4 (08/04/2022 8:16 AM LOCKSTITCH ZIPPER SETTER)Only the most recent of5 resultswithin the time period is included. P athologist Signature T4 Free 1.34 0.93 - 1.70 [facility] ng/dL [facility] Specimen Anatomical Collection Method Collection Time Receive d Time (Source) Location / / Volume Laterality Blood 08/04/2022 8:16 AM 2 9:21 LOCKSTITCH ZIPPER SETTER AM LOCKSTITCH ZIPPER SETTER Joanna Hollisppard JEAN CLAUDE LAB BLOOD ORDERABLES Performing Organization Address City/[facility] [address]/ZIP [facility] Phon e Number [facility] CANCER Unless otherwise noted, [address] all lab tests performed by: Division of Pathology and Laboratory Medicine [address] [place] Total Protein (08/04/2022 8:16 AM LOCKSTITCH ZIPPER SETTER)Only the most recent of7 resultswithin the time period is included. P athologist Signature Total Protein 8.1 6.4 - 8.3 [facility] g/dL [facility] Specimen Anatomical Collection Method Collection Time Receive d Time (Source) Location / / Volume Laterality Blood 08/04/2022 8:16 AM 2 9:21 LOCKSTITCH ZIPPER SETTER AM LOCKSTITCH ZIPPER SETTER Joanna Hollisppard PROFESSOR OF ART HISTORY LAB BLOOD ORDERABLES Performing Organization Address [facility] [address]/[facility] Phon e Number [facility] CANCER Unless otherwise noted, [address] all lab tests performed by: Division of Pathology and Laboratory Medicine [address] [place] Phosphorus Level (08/04/2022 8:16 AM LOCKSTITCH ZIPPER SETTER)Only the most recent of6 resultswithin the time period is included. P athologist Signature Phosphorus 4.2 2.5 - 4.5 [facility] mg/dL [facility] Specimen Anatomical Collection Method Collection Time Receive d Time (Source) Location / / Volume Laterality Blood 08/04/2022 8:16 AM 2 9:21 LOCKSTITCH ZIPPER SETTER AM LOCKSTITCH ZIPPER SETTER Joanna Hollisppard PROFESSOR OF ART HISTORY LAB BLOOD ORDERABLES Performing Organization Address City/[facility] [address]/ZIP [facility] Phon e Number [facility] CANCER Unless otherwise noted, [address] all lab tests performed by: Division of Pathology and Laboratory Medicine [address] [place] (ABNORMAL) Alkaline Phosphatase (08/04/2022 8:16 AM LOCKSTITCH ZIPPER SETTER)Only the most recent of7 resultswithin the time period is included. P athologist Signature Alk Phos 135 (H) 35 - 104 [facility] U/L [facility] Specimen Anatomical Collection Method Collection Time Receive d Time (Source) Location / / Volume Laterality Blood 08/04/2022 8:16 AM 2 9:21 LOCKSTITCH ZIPPER SETTER AM LOCKSTITCH ZIPPER SETTER Joanna Ruth Ann Ryan SILVERIO LAB BLOOD ORDERABLES Performing Organization Address City/State/ZIP Code Phon e Number [facility] CANCER Unless otherwise noted, [address] all lab tests performed by: Division of Pathology and Laboratory Medicine [address] [place] Magnesium (08/04/2022 8:16 AM LOCKSTITCH ZIPPER SETTER)Only the most recent of14 resultswithin the time period is included. athologist Signature Magnesium 2.3 1.6 - 2.6 [facility] mg/dL [facility] Specimen Anatomical Collection Method Collection Time Receive d Time (Source) Location / / Volume Laterality Blood 08/04/2022 8:16 AM 2 9:21 LOCKSTITCH ZIPPER SETTER AM LOCKSTITCH ZIPPER SETTER Joanna Ruth Ann Ryan SILVERIO LAB BLOOD ORDERABLES Performing Organization Address [facility] [address]/[facility] Code Phon e Number [facility] Unless otherwise noted, [address] all lab tests performed by: Division of Pathology and Laboratory Medicine [address] [place] (ABNORMAL) Glucose Level (08/04/2022 8:16 AM LOCKSTITCH ZIPPER SETTER)Only the most recent of7 resultswithin the time period is included. athologist Signature Glucose Level 238 (H) 70 - 99 [facility] mg/dL [facility] Comment: Effective 03/24/16, the glucose reference intervals have been updated based on [place] [employer] guidelines (Standards of Medical Care [...] (Source) Location / / Volume Laterality Blood 08/04/2022 8:16 AM 2 9:21 LOCKSTITCH ZIPPER SETTER AM LOCKSTITCH ZIPPER SETTER Joanna Ruth Ann Ryan SILVERIO LAB BLOOD ORDERABLES Performing Organization Address City/[facility] [address]/ZIP Code Phon e Number [facility] Unless otherwise noted, [address] all lab tests performed by: Division of Pathology and Laboratory Medicine [address] [place] (ABNORMAL) Calcium Level (08/04/2022 8:16 AM LOCKSTITCH ZIPPER SETTER)Only the most recent of7 resultswithin the time period is included. athologist [facility] Calcium Lvl 10.5 (H) 8.4 - 10.2 [facility] mg/dL [facility] Specimen Anatomical Collection Method Collection Time Receive d Time (Source) Location / / Volume Laterality Blood 08/04/2022 8:16 AM 2 9:21 LOCKSTITCH ZIPPER SETTER AM LOCKSTITCH ZIPPER SETTER Joanna Davis APN LAB BLOOD ORDERABLES Performing Organization Address City/[facility] [address]/ZIP [facility] Phon e Number [facility] CANCER Unless otherwise noted, [address] all lab tests performed by: Division of Pathology and Laboratory Medicine [facility] [place] Albumin Level (08/04/2022 8:16 AM LOCKSTITCH ZIPPER SETTER)Only the most recent of7 resultswithin the time period is included. [facility] Albumin Lvl 5.2 3.5 - 5.2 [facility] gm/dL [facility] Specimen Anatomical Collection Method Collection Time Receive d Time (Source) Location / / Volume Laterality Blood 08/04/2022 8:16 AM 2 9:21 LOCKSTITCH ZIPPER SETTER AM LOCKSTITCH ZIPPER SETTER Joanna Ruth Ann Ryan SILVERIO LAB BLOOD ORDERABLES Performing Organization Address City/[facility] [address]/ZIP [facility] Phon e Number [facility] CANCER Unless otherwise noted, [address] all lab tests performed by: Division of Pathology and Laboratory Medicine [facility] [place] (ABNORMAL) Electrolyte Panel (08/04/2022 8:16 AM LOCKSTITCH ZIPPER SETTER)Only the most recent of15 resultswithin the time period is included. athologist [facility] Sodium Lvl 128 (L) 136 - 145 [facility] mEq/L [facility] Potassium Lvl 3.7 3.5 - 5.1 [facility] mEq/L [facility] Chloride 88 (L) 98 - 107 [facility] mEq/L [facility] CO2 26 22 - 29 [facility] mEq/L [facility] Anion Gap 14 4 - 14 [facility] mEq/L [facility] Specimen Anatomical Collection Method Collection Time Receive d Time (Source) Location / / Volume Laterality Blood 08/04/2022 8:16 AM 2 9:21 LOCKSTITCH ZIPPER SETTER AM LOCKSTITCH ZIPPER SETTER Joanna Davis APN LAB BLOOD ORDERABLES Performing Organization Address City/State/ZIP Code Phon e Number [facility] CANCER Unless otherwise noted, [address] all lab tests performed by: Division of Pathology and Laboratory Medicine [address] [place] [address] Research Protocol [id number] (2022 2:42 PM LOCKSTITCH ZIPPER SETTER)Only the most recent of5 resultswithin the time period is included. athologist Signature Research Prot [id number] [facility] Specimen Anatomical Collection Method Collection Time Receive d Time (Source) Location / / Volume Laterality Blood 2022 2:42 PM 2 3:09 LOCKSTITCH ZIPPER SETTER PM LOCKSTITCH ZIPPER SETTER Melvin Bravo MD [facility] Z CODES Performing Organization Address City/State/ZIP Code Phon e Number [facility] Unless otherwise noted, [address] all lab tests performed by: Division of Pathology and Laboratory Medicine [address] [place] [address] CT Chest with Contrast (2022 2:10 PM LOCKSTITCH ZIPPER SETTER) Anatomical Region Laterality Modality Chest Computed Tomography Specimen (Source) Anatomical Collection Method Collection Time Re ceived Time Location / / Volume Laterality 2022 3:01 PM LOCKSTITCH ZIPPER SETTER Impressions 2022 3:11 PM LOCKSTITCH ZIPPER SETTER 1. Stable therapeutic sequelae in the left hemithorax without evidence of recurrent or metastatic disease. 2. Interval resolution of inflammatory nodular lung densities. Narrative 2022 3:11 PM LOCKSTITCH ZIPPER SETTER FULL RESULT: Examination: CT Chest with IV contrast, 2022 2:10 PM Clinical History: Non-small cell lung ca ncer <Unspecified side> Indication: Cancer staging or restaging Comparison: CT chest abdomen pelvis 05/29 and 04/14/2022 Technique: Contiguous CT images through the chest were acquired following the administration of intravenous contrast. Coronal and sagittal multiplanar reformats and maximum intensity projection (MIP) images were performed. Findings: Soft tissue in the left hilum and perihilar region is unchanged (images 41-49, series 2). 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 There is adjacent loculated small left pleural fluid attributed to treatment effect. The lungs are emphysematous. Punctate ri ght upper lobe nodule is unchanged (image 26, series 3). Some nodular density seen on 06/08/2022 have resolved compatible with inflammatory etiology. A calcified granuloma in the right lung base is post infectious. Small calcified left pleural plaque is s table (image 84, series 2). No enlarged supraclavicular, mediastinal , right hilar or axillary lymph nodes. The heart is normal in size. There is ad vanced multivessel coronary artery disease status post coronary artery bypass graft. The thoracic aorta and main pulmonary trunk are normal in diameter. The esophagus is nondistended and normal in course. Incidental small bilateral fat-containing Bochdalek hernias. Images through the upper abdomen demonst rate a small hyperenhancing focus in the posterior liver which may reflect AP shunt perfusion or small flash filling hemangioma. There are calcified nodes in the portacaval space and tyson hepatis. The adrenal glands, spleen and upper poles of the kidneys are within normal limits. No bone lesion or acute bone fracture in the thorax. Median sternotomy is healed. Procedure Note Bianca Sanchez MD - 2022Forma tting of this note might be different from the original. FULL RESULT: Examination: CT Chest with IV contrast, 2022 2:10 PM Clinical History: Non-small cell lung ca ncer <Unspecified side> Indication: Cancer staging or restaging Comparison: CT chest abdomen pelvis 05/29 and 04/14/2022 Technique: Contiguous CT images through the chest were acquired following the administration of intravenous contrast. Coronal and sagittal multiplanar reformats and maximum intensity projection (MIP) images were performed. Findings: Soft tissue in the left hilum and perihilar region is unchanged (images 41-49, series 2). 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 There is adjacent loculated small left pleural fluid attributed to treatment effect. The lungs are emphysematous. Punctate ri ght upper lobe nodule is unchanged (image 26, series 3). Some nodular density seen on 06/08/2022 have resolved compatible with inflammatory etiology. A calcified granuloma in the right lung base is post infectious. Small calcified left pleural plaque is s table (image 84, series 2). No enlarged supraclavicular, mediastinal , right hilar or axillary lymph nodes. The heart is normal in size. There is ad vanced multivessel coronary artery disease status post coronary artery bypass graft. The thoracic aorta and main pulmonary trunk are normal in diameter. The esophagus is nondistended and normal in course. Incidental small bilateral fat-containing Bochdalek hernias. Images through the upper abdomen demonst rate a small hyperenhancing focus in the posterior liver which may reflect AP shunt perfusion or small flash filling hemangioma. There are calcified nodes in the portacaval space and tyson hepatis. The adrenal glands, splee n and upper poles of the kidneys are within normal limits. No bone lesion or acute bone fracture in the thorax. Median sternotomy is healed. IMPRESSION: 1. Stable therapeutic sequelae in the le ft hemithorax without evidence of recurrent or metastatic disease. 2. Interval resolution of inflammatory n odular lung densities. Emily Lisa NP IMG CT ORDERABLES US Transvaginal (07/07/2022 2:13 PM LOCKSTITCH ZIPPER SETTER) Anatomical Region Laterality Modality Pelvis Ultrasound Specimen (Source) Anatomical Collection Method Collection Time Re ceived Time Location / / Volume Laterality 07/07/2022 3:19 PM LOCKSTITCH ZIPPER SETTER Impressions 07/07/2022 3:25 PM LOCKSTITCH ZIPPER SETTER 1. Normal pelvic ultrasound. 2. The 3 cm fatty lesion in the left adn exa seen on prior CT is not identified on today's ultrasound. 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 Findings: The uterus measures 5.4 x 2.5 x 3.1 cm. Right ovary measures 1.6 x 0.8 x 0.9 cm. Left ovary measures 1.9 x 0.8 x 1.3 cm. Endometrial stripe measures 1 mm. The 3 cm fatty lesion in the left adnexa seen o n prior CT is not identified on today's ultrasound. 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 Findings: The uterus measures 5.4 x 2.5 x 3.1 cm. Right ovary measures 1.6 x 0.8 x 0.9 cm. Left ovary measures 1.9 x 0.8 x 1.3 cm. Endometrial stripe measures 1 mm. The 3 cm fatty lesion in the left adnexa seen on prior CT is not identified on today's ultrasound. IMPRESSION: 1. Normal pelvic ultrasound. 2. The 3 cm fatty lesion in the left adn exa seen on prior CT is not identified on today's ultrasound. Joanna Davis APN [facility] US ORDERABLES Research Protocol [id number] (05/12/2022 10:43 AM CDT) [facility] Research Prot [id number] [facility] Specimen Anatomical Collection Method Collection Time Receive d Time (Source) Location / / Volume Laterality Blood 05/12/2022 10:43 05/12/2022 AM CDT 11:09 AM CDT Narrative [facility] - 2 3:26 PM CDT Please contact Glynn Corcoran \\T\\ Thierno Hermosillooleon for blood pickup. Joanna Davis APN [facility] Z CODES Performing Organization Address City/State/ZIP Code Phon e Number [facility] CANCER Unless otherwise noted, [place] [address] M[place] all lab tests performed by: Division of Pathology and Laboratory Medicine [address] (ABNORMAL) NT-Pro BNP (In-House) (05/12/2022 10:43 AM CDT)Only the most recent of2 resultswithin the time period is included. [facility] NT ProBNP 549 (H) <=125 pg/mL [facility] Specimen Anatomical Collection Method Collection Time Receive d Time (Source) Location / / Volume Laterality Blood 05/12/2022 10:43 05/12/2022 AM CDT 11:14 AM CDT Melvin Bravo MD LAB BLOOD ORDERABLES Performing Organization Address City/[facility] [address]/[facility] Phon e Number [facility] CANCER Unless otherwise noted, [address] all lab tests performed by: Division of Pathology and Laboratory Medicine [facility] Radha Marielos CRP (05/12/2022 10:43 AM CDT)Only the most recent of2 resultswithin the time period is included. athologist Signature CRP 5.35 mg/L [facility] Comment: Reference ranges for HS CRP assay [...] (Source) Location / / Volume Laterality Blood 05/12/2022 10:43 05/12/2022 AM CDT 11:14 AM CDT Melvin Bravo MD LAB BLOOD ORDERABLES Performing Organization Address [facility] [address]/[facility] Phon e Number [facility] CANCER Unless otherwise noted, [address] all lab tests performed by: Division of Pathology and Laboratory Medicine [address] [place] [address] Marielos (ABNORMAL) Troponin T (In-House) (05/12/2022 10:43 AM CDT)Only the most recent of4 resultswithin the time period is included. athologist Signature Troponin T 20 (H) <=18 ng/L [facility] Comment: < 19 ng/L Suggest retest at [...] (Source) Location / / Volume Laterality Blood 05/12/2022 10:43 05/12/2022 AM CDT 11:09 AM CDT Melvin Bravo MD LAB BLOOD ORDERABLES Performing Organization Address City/State/ZIP Code Phon e Number [facility] CANCER Unless otherwise noted, [address] all lab tests performed by: Division of Pathology and Laboratory Medicine [address] [place] [address] CKMB (05/12/2022 10:43 AM CDT) athologist Signature CK MB <2.0 <=5.3 ng/mL [facility] Specimen Anatomical Collection Method Collection Time Receive d Time (Source) Location / / Volume Laterality Blood 05/12/2022 10:43 05/12/2022 AM CDT 11:14 AM CDT Melvin Bravo MD LAB BLOOD ORDERABLES Performing Organization Address City/[facility] [address]/[facility] [facility] Code Phon e Number [facility] Unless otherwise noted, [address] all lab tests performed by: Division of Pathology and Laboratory Medicine [address] [place] [address] US Renal (04/21/2022 10:25 AM CDT) Anatomical Region Laterality Modality Abdomen Ultrasound Specimen (Source) Anatomical Collection Method Collection Time Re ceived Time Location / / Volume Laterality 04/21/2022 10:34 AM CDT Impressions 04/21/2022 11:11 AM CDT No hydronephrosis bilaterally. Vascular flow is seen within both kidney s. Note, however, that evaluation for pyelonephritis is better assessed by CT or MR imaging. Urinary bladder could not be visualized, likely due to overlying bowel gas. Cholelithiasis is incidentally noted. 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 Indication: Wedge-shaped areas of hypode nsity and irregularity of the upper aspect of the left kidney noted on CT chest/abdomen 04/14/2022. Comparison: CT chest/abdomen 04/14/2022. Technique: Grayscale and color Doppler u ltrasound of the kidneys and urinary bladder. Findings: Left kidney: Measures 9.7 cm in longit udinal dimension. Vascular flow is seen throughout the renal parenchyma. No discrete solid renal mass, obstructing calculi or hydronephrosis is identified sonographically. Right kidney: Measures 9.1 cm in longi tudinal dimension. Expected vascular flow is seen within the kidney. No discrete solid renal mass, obstructing calculi or hydronephrosis is identified sonographically. Urinary bladder: Not visualized, likel y due to presence of multiple bowel loops and overlying bowel gas. Cholelithiasis is incidentally noted. 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 Indication: Wedge-shaped areas of hypode nsity and irregularity of the upper aspect of the left kidney noted on CT chest/abdomen 04/14/2022. Comparison: CT chest/abdomen 04/14/2022. Technique: Grayscale and color Doppler u ltrasound of the kidneys and urinary bladder. Findings: Left kidney: Measures 9.7 cm in longitud inal dimension. Vascular flow is seen throughout the renal parenchyma. No discrete solid renal mass, obstructing calculi or hydronephrosis is identified sonographically. Right kidney: Measures 9.1 cm in longitu dinal dimension. Expected vascular flow is seen within the kidney. No discrete solid renal mass, obstructing calculi or hydronephrosis is identified sonographically. Urinary bladder: Not visualized, likely due to presence of multiple bowel loops and overlying bowel gas. Cholelithiasis is incidentally noted. IMPRESSION: No hydronephrosis bilaterally. Vascular flow is seen within both kidney s. Note, however, that evaluation for pyelonephritis is better assessed by CT or MR imaging. Urinary bladder could not be visualized, likely due to overlying bowel gas. Cholelithiasis is incidentally noted. Joanna Davis APN IMG US ORDERABLES Transfuse RBC:Transfusion Date: 04/14/2022 (04/14/2022 8:19 PM CDT) Joanna Davis APN BLOOD TRANSFUSION ORDERABLES Clot Expiration Date (04/14/2022 11:50 AM CDT) Patholo gist Method Time Signature T & S 04/17/2022 [facility] Specimen Anatomical Collection Method Collection Time Receive d Time (Source) Location / / Volume Laterality Blood 04/14/2022 11:50 04/14/2022 AM CDT 12:14 PM CDT Joanna Davis APN BLOOD BANK TEST ORDERABLES Performing Organization Address City/State/ZIP Code Phon e Number [facility] Unless otherwise noted, [address] all lab tests performed by: Division of Pathology and Laboratory Medicine [id number] (ABNORMAL) Urinalysis with Microscopic (04/14/2022 11:50 AM CDT)Only the most recent of2 resultswithin the time period is included. athologist Signature UA WBC 8 (H) 0 - 2 /HPF [facility] UA RBC 2 0 - 2 /HPF [facility] UA Mucous NOT SEEN Not [facility] Seen-Trace [facility] /[facility] UA Bacteria NOT SEEN NOT SEEN [facility] UA Squam Epi OCC None-Occas [facility] ional /[facility] Specimen Anatomical Collection Method Collection Time Receive d Time (Source) Location / / Volume Laterality Urine 04/14/2022 11:50 04/14/2022 AM CDT 12:11 PM CDT Narrative [facility] - 12:36 PM CDT Some reporting parameters within the Urinalysis test have changed due to the implementation of new in strumentation in the [place], allowi ng greater sensitivity of measurement. Urinalysis results reported by the [facility] using existing instrumentation, as well as Urinalysis t esting performed manually or by backup methodology at the [facility] will remain relatively unchanged. New reporting parameters and units will now be reported for all campuses. Joanna Davis APN URINE ORDERABLES Performing Organization Address City/State/ZIP Code Phon e Number [facility] Unless otherwise noted, [address] all lab tests performed by: Division of Pathology and Laboratory Medicine [address] [place] TMP Interpretation Antibody Screen Negative (04/14/2022 11:50 AM CDT) [facility] Time [facility] TMP Auto Neg At the [place] MD ABSC Interp present [facility] patient plasma shows no evidence of RBC alloantibodi es. Comment: MD Kim PEARCE Dictated by: MD Kim PEARCE Dictated Date/Time: 04.14.2022 16:02 PM CDT Transcribed Date/Time: 04.14.2022 16:02 PM CDT Electronically Signed By: MD Kim PEARCE on 04.14.2022 16:02 PM Specimen Anatomical Collection Method Collection Time Receive d Time (Source) Location / / Volume Laterality Blood 04/14/2022 11:50 04/14/2022 AM CDT 12:14 PM CDT Joanna Davis APN BLOOD BANK TEST ORDERABLES Performing Organization Address City/State/ZIP Code Phon e Number [facility] Unless otherwise noted, [place], [place] [id number] [place] [address] all lab tests performed by: Division of Pathology and Laboratory Medicine [facility] TMP Interpretation Crossmatch (04/14/2022 11:50 AM CDT) [facility] TMP XM Interp RBC units [place] crossmatched for [facility] transfusion [facility] acceptable. Comment: MD Kim PEARCE Dictated by: MD Kim PEARCE Dictated Date/Time: 04.14.2022 16:02 PM CDT Transcribed Date/Time: 04.14.2022 16:02 PM CDT Electronically Signed By: MD Kim PEARCE on 04.14.2022 16:02 PM Specimen Anatomical Collection Method Collection Time Receive d Time (Source) Location / / Volume Laterality Blood 04/14/2022 11:50 04/14/2022 AM CDT 12:14 PM CDT Joanna Davis PROFESSOR OF ART HISTORY BLOOD BANK TEST ORDERABLES Performing Organization Address City/State/ZIP Code Phon e Number [facility] Unless otherwise noted, [address] all lab tests performed by: Division of Pathology and Laboratory Medicine [address] [place] [address] [place] ABOR (04/14/2022 11:50 AM CDT) P athologist Signature ABORh. A POS [facility] Specimen Anatomical Collection Method Collection Time Receive d Time (Source) Location / / Volume Laterality Blood 04/14/2022 11:50 04/14/2022 AM CDT 12:14 PM CDT Joanna Hollisppard PROFESSOR OF ART HISTORY BLOOD BANK TEST ORDERABLES Performing Organization Address City/State/ZIP Code Phon e Number [facility] Unless otherwise noted, [address] all lab tests performed by: Division of Pathology and Laboratory Medicine [facility] [place] (ABNORMAL) Urinalysis w/Microscopic if Indicated (04/14/2022 11:50 AM CDT)Only the most recent of2 resultswithin the time period is included. Patholo gist Method Time Signature UA Color Straw Straw-[facility]el [facility] UA Appear Clear Clear [facility] UA Glucose NEG NEG mg/dL [facility] UA Bili NEG NEG [facility] UA Ketones NEG NEG mg/dL [facility] UA Spec Grav 1.029 1.003 - RUST 1.035 [facility] UA Blood NEG NEG [facility] UA pH 6.0 5.0 - 9.0 [facility] UA Protein NEG NEG mg/dL [facility] UA Urobilinogen NEG NEG [facility] UA Nitrite NEG NEG [facility] UA Leuk Est Small (A) NEG [facility] Specimen Anatomical Collection Method Collection Time Receive d Time (Source) Location / / Volume Laterality Urine 04/14/2022 11:50 04/14/2022 AM CDT 12:11 PM CDT Joanna Hollispaty SILVERIO URINE ORDERABLES Performing Organization Address City/[facility] [address]/ZIP Code Phon e Number [facility] Unless otherwise noted, [address] all lab tests performed by: Division of Pathology and Laboratory Medicine [address] [place] [address] Antibody Screen (04/14/2022 11:50 AM CDT) P athologist Signature ABSC. Negative ABSC [facility] Specimen Anatomical Collection Method Collection Time Receive d Time (Source) Location / / Volume Laterality Blood 04/14/2022 11:50 04/14/2022 AM CDT 12:14 PM CDT Joanna F Ryan SILVERIO BLOOD BANK TEST ORDERABLES Performing Organization Address City/[facility] [address]/ZIP Code Phon e Number [facility] Unless otherwise noted, [address] all lab tests performed by: Division of Pathology and Laboratory Medicine [address] [place] [address] Confirm ABORh (04/14/2022 11:41 AM CDT) athologist Signature ABORh Confirm. A POS [facility] Specimen Anatomical Collection Method Collection Time Receive d Time (Source) Location / / Volume Laterality Blood 04/14/2022 11:41 04/14/2022 AM CDT 12:14 PM CDT Joanna F Ryan SILVERIO BLOOD BANK TEST ORDERABLES Performing Organization Address City/[facility] [address]/ZIP Code Phon e Number [facility] Unless otherwise noted, [address] all lab tests performed by: Division of Pathology and Laboratory Medicine [address] [place] [address] [place] RBC Product Ready for Auditing Clerk (04/14/2022 10:56 AM CDT) Analysis Performed At [facility] PRBC Product B2 Blood RUST Ready for Pick [facility] Comment: Product is ready for apple picker on April 14, 2022 16:00:55 CDT. Specimen Anatomical Collection Method Collection Time Receive d Time (Source) Location / / Volume Laterality Blood 04/14/2022 10:56 04/14/2022 AM CDT 10:57 AM CDT Joanna Ruth Ann Ryan SILVERIO BLOOD BANK PRODUCT ORDERABLE S Performing Organization Address City/State/[facility] Phon e Number [facility] Unless otherwise noted, [address] all lab tests performed by: Division of Pathology and Laboratory Medicine [address] [place] [address] Prepare RBC:ATC, 1 Units (04/14/2022 10:56 AM CDT) P athologist Signature PRBC Product 1 [facility] Comment: Red Blood Cells Available - Ord er Form 03 when ready for product issue. Unit Number [id number] [facility] Product Code [id number] [facility] CA [facility] Unit Expiration CO [facility] Unit Blood Type 6200 [facility] Product Code Text RBCIRLR CPD AS1 500mL [facility] Crossmatch Expiration Date [facility] Unit Irradiated IRRADIATED CO [facility] [place] [facility] Dispense Status ISSUED [facility] Unit Blood Type A Positive CO [facility] [place] [facility] Product Auditing Clerk Location .BPAM [facility] Comment: Specimen Anatomical Collection Method Collection Time Receive d Time (Source) Location / / Volume Laterality Blood 04/14/2022 10:56 04/14/2022 AM CDT 10:57 AM CDT Joanna Davis APN BLOOD BANK PRODUCT ORDERABLE S Performing Organization Address City/[facility] [address]/[facility] Phon e Number [facility] Unless otherwise noted, [address] all lab tests performed by: Division of Pathology and Laboratory Medicine [address] [place] [address] CT Chest Abdomen with Contrast (04/14/2022 8:03 AM CDT) Anatomical Region Laterality Modality Chest, Abdomen Computed Tomography Specimen (Source) Anatomical Collection Method Collection Time Re ceived Time Location / / Volume Laterality 04/14/2022 8:53 AM CDT Addenda Addendum by Taya Neumann MD on 0 04/14/2022 11:34 AM CDT Correction to Impression : Impression : 1. Interval decrease in the left perih ilar/left upper lung primary malignancy. 2. There is heterogeneous enhancement of the left kidney, with wedge-shaped areas of hypodensity and ir regularity of the upper aspect of the left kidney. There is also enhanceme nt of the urothelial lining. Enlarged new left para-aortic nodes are noted. No contrast-enhanced images were obtained through this area on prior exam. Giving the timing, this could represent pyelonephritis/ureteriti s due to therapy or infection-inflammation. However, this pr ocess appears quite infiltrative and along with the nodes, requires close follow-up to exclude metastatic disease. 3. Peripheral opacities in the right l arleth are most likely related to patient's recent COVID-19 infection, to be followed. 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 Findings: Lesions are denoted by (series/image num go).Sample lesions are given for measurement purposes. If additional sophia urements are desired, an addendum can be issued. Chest: 1. Lungs/Pleura: The left upper lung/p erihilar tumor has decreased in size, currently measuring 3.5 x 1.8 cm ( ). Opacities in the left lung suspicious for tumor extension remain re latively unchanged. There are new predominantly peripheral g round-glass opacities in the right lung (for example series 7, images 38, 4 8, 55,). No evidence of pleural effusion. Calcifi ed granuloma in the right lower lobe. 2. Visualized neck:The thyroid gland i s unchanged. 3. Mediastinum/Lymph nodes: Previously noted node on image 36 measures 0.4 cm, previously 0.8 cm. Previously se en right paratracheal node measures 0.8 cm, unchanged. A left parat zaira node measures 0.7 cm, unchanged (). Subcarinal node is unc hanged. Calcified identified. [Left Small supraclavicular nodes are noted. 4. Heart/Great Vessels: The heart is u nchanged in appearance. There are coronary artery calcifications. 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 Atherosclerotic disease of the aorta. Ri ght pericardial calcification/high density remains unchanged. 5. Pulmonary Arteries:No definite evid ence of central filling defect. The left pulmonary artery branches are narro wed by the tumor. 6. Chest wall:No progressive chest wal l lesions are seen. No osseous metastases are seen. 7. Other: No lines or tubes. Abdomen: 1. Hepatobiliary: Hypervascular lesion s in the liver could represent perfusion phenomena, hemangiomas, or FNH . Low density along the falciform ligament likely represents focal fatty i nfiltration. Gallbladder:Cholelithiasis. Ductal Dilation: Mild dilation is noted. 2. Spleen: The spleen is unchanged in size. 3. Pancreas:No definite pancreatic les ions are seen. 4. Gastrointestinal tract:The visualiz ed portion of the bowel is not dilated. There is mild thickening/underd istention of small bowel loops, to be correlated for any signs and symptoms of enteritis. 5. Genitourinary: Kidneys:There is heterogeneous enhanceme nt of the left kidney. There is mild enhancement of the left urothelial lining which could represent either ureter right is. This area was no t imaged on prior exams with contrast . The right collecting system is unremarkable. Adrenals: The adrenal glands are unchang ed. 6. Lymph nodes: Calcified lymph node s are seen adjacent to the tyson hepatis. Prominent upper retroperitoneal/left par a-aortic nodes are noted. A sample node on image 31 measures 1.5 cm. Anothe r node on image 42 measures 0.8 cm. 7. Vessels: Atherosclerotic disease of the vessels. 8. Other:There are no fluid collection s. Bones/Soft Tissues/other: No definite ch gilbert in the osseous structures by CT. Bone scan is more sensitive for the detection of osseous metastases. Impression : 1. Interval decrease in the left perih ilar/left upper lung primary malignancy. 2. There is heterogeneous enhancement of the left kidney, with wedge-shaped areas of hypodensity and ir regularity of the upper aspect of the left kidney. There is also enhanceme nt of the urothelial lining. Enlarged new left para-aortic nodes are noted. No contrast-enhanced images were obtained through this area on prior exam. Giving the timing, this could represent pyelonephritis/ureteriti s due to therapy or infection-inflammation. However, this pr ocess appears quite infiltrative and along with the nodes, requires close follow-up to exclude metastatic disease. 3. Peripheral opacities in the right l arleth are most likely related to patient's recent COVID-19 infection, to be followed. Impressions 04/14/2022 9:25 AM CDT 1. Interval decrease in the left perih ilar/left upper lung primary malignancy. 2. There is heterogeneous enhancement of the left kidney, with wedge-shaped areas of hypodensity and irregularity of the upper aspect of the left kidney. There is also enhancement of the urothelial li merary. Enlarged new left para-aortic node s are noted. No contrast-enhanced images were obtained through this area on prior exam. Giving the timing, this could represent pyelonephritis/ureteritis due to t herapy or infection-inflammation. Howeve r, this process appears quite infiltrative and along with the nodes, requires close follow-up to exclude metastatic disease. 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 Findings: Lesions are denoted by (series/image num go).Sample lesions are given for measurement purposes. If additional measurements are desired, an addendum can be issued. Chest: 1. Lungs/Pleura: The left upper lung/p erihilar tumor has decreased in size, currently measuring 3.5 x 1.8 cm (). Opacities in the left lung suspicious for tumor extension remain relatively unchanged. There are new predominantly peripheral g round-glass opacities in the right lung (for example series 7, images 38, 48, 55,). No evidence of pleural effusion. Calcifi ed granuloma in the right lower lobe. 2. Visualized neck:The thyroid gland i s unchanged. 3. Mediastinum/Lymph nodes: Previously noted node on image 36 measures 0.4 cm, previously 0.8 cm. Previously seen right paratracheal node measures 0.8 cm, unchanged. A left paratracheal node measures 0.7 cm, unchanged (5/42). Subcarinal nod e is unchanged. Calcified identified. [Left Small supraclavicular nodes are noted. 4. Heart/Great Vessels: The heart is u nchanged in appearance. There are coronary artery calcifications. 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 Atherosclerotic disease of the aorta. Right pericardial calcification/high density remains unchanged. 5. Pulmonary Arteries:No definite evid ence of central filling defect. The left pulmonary artery branches are narrowed by the tumor. 6. Chest wall:No progressive chest wal l lesions are seen. No osseous metastases are seen. 7. Other: No lines or tubes. Abdomen: 1. Hepatobiliary: Hypervascular lesion s in the liver could represent perfusion phenomena, hemangiomas, or FNH. Low density along the falciform ligament likely represents focal fatty infiltration. Gallbladder:Cholelithiasis. Ductal Dilation: Mild dilation is noted. 2. Spleen: The spleen is unchanged in size. 3. Pancreas:No definite pancreatic les ions are seen. 4. Gastrointestinal tract:The visualiz ed portion of the bowel is not dilated. There is mild thickening/underdistention of small bowel loops, to be correlated for any signs and symptoms of enteritis. 5. Genitourinary: Kidneys:There is heterogeneous enhanceme nt of the left kidney. There is mild enhancement of the left urothelial lining which could represent either ureter right is. This area was not imaged on prior exa ms with contrast . The right collectin g system is unremarkable. Adrenals: The adrenal glands are unchang ed. 6. Lymph nodes: Calcified lymph node s are seen adjacent to the tyson hepatis. Prominent upper retroperitoneal/left par a-aortic nodes are noted. A sample node on image 31 measures 1.5 cm. Another node on image 42 measures 0.8 cm. 7. Vessels: Atherosclerotic disease of the vessels. 8. Other:There are no fluid collection s. Bones/Soft Tissues/other: No definite ch gilbert in the osseous structures by CT. Bone scan is more sensitive for the detection of osseous metastases. Procedure Note Taya Neumann MD - 04/14/2022Form atting of this note might be different from the original. 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 Findings: Lesions are denoted by (series/image num go).Sample lesions are given for measurement purposes. If additional measurements are desired, an addendum can be issued. Chest: 1. Lungs/Pleura: The left upper lung/per ihilar tumor has decreased in size, currently measuring 3.5 x 1.8 cm (/51). Opacities in the left lung suspicious for tumor extension remain relatively unchanged. There are new predominantly peripheral g round-glass opacities in the right lung (for example series 7, images 38, 48, 55,). No evidence of pleural effusion. Calcifi ed granuloma in the right lower lobe. 2. Visualized neck:The thyroid gland is unchanged. 3. Mediastinum/Lymph nodes: Previously n oted node on image 36 measures 0.4 cm, previously 0.8 cm. Previously seen right paratracheal node measures 0.8 cm, unchanged. A left paratracheal node measures 0.7 cm, unchanged (5/42). Subcarinal node is unc hanged. Calcified identified. [Left Small supraclavicular nodes are noted. 4. Heart/Great Vessels: The heart is unc hanged in appearance. There are coronary artery calcifications. 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 Atherosclerotic disease of the aorta. Right pericardial calcification/high density remains unchanged. 5. Pulmonary Arteries:No definite eviden ce of central filling defect. The left pulmonary artery branches are narrowed by the tumor. 6. Chest wall:No progressive chest wall lesions are seen. No osseous metastases are seen. 7. Other: No lines or tubes. Abdomen: 1. Hepatobiliary: Hypervascular lesions in the liver could represent perfusion phenomena, hemangiomas, or FNH. Low density along the falciform ligament likely represents focal fatty infiltration. Gallbladder:Cholelithiasis. Ductal Dilation: Mild dilation is noted. 2. Spleen: The spleen is unchanged in si ze. 3. Pancreas:No definite pancreatic lesio ns are seen. 4. Gastrointestinal tract:The visualized portion of the bowel is not dilated. There is mild thickening/underdistention of small bowel loops, to be correlated for any signs and symptoms of enteritis. 5. Genitourinary: Kidneys:There is heterogeneous enhanceme nt of the left kidney. There is mild enhancement of the left urothelial lining which could represent either ureter right is. This area was not imaged on prior exams with contrast . The right collecting system i s unremarkable. Adrenals: The adrenal glands are unchang ed. 6. Lymph nodes: Calcified lymph nodes ar e seen adjacent to the tyson hepatis. Prominent upper retroperitoneal/left par a-aortic nodes are noted. A sample node on image 31 measures 1.5 cm. Another node on image 42 measures 0.8 cm. 7. Vessels: Atherosclerotic disease of t he vessels. 8. Other:There are no fluid collections. Bones/Soft Tissues/other: No definite ch gilbert in the osseous structures by CT. Bone scan is more sensitive for the detection of osseous metastases. IMPRESSION: 1. Interval decrease in the left perihil ar/left upper lung primary malignancy. 2. There is heterogeneous enhancement of the left kidney, with wedge-shaped areas of hypodensity and irregularity of the upper aspect of the left kidney. There is also enhancement of the urothelial lining. Enlarged new left para-aortic nodes are noted. No contrast-enhanced images were obtained through this area on prior exam. Giving the timing, this could represent pyelonephritis/ureteritis due to therapy or infection-inflammation. However, this pr ocess appears quite infiltrative and along with the nodes, requires close follow-up to exclude metastatic disease. Clarita BRUNSON IMUmu CT ORDERABLES Glucose, Random (03/17/2022 2:04 PM CDT)Only the most recent of8 resultswithin the time period is included. athologist Signature Glucose Random 73 70 - 199 [facility] mg/dL CANCER CENTER Comment: Effective 03/24/16, the glucose reference intervals have been updated based on [place] [employer] guidelines (Standards of Medical Care [...] / / Volume Laterality Blood 03/17/2022 2:04 PM 2 2:42 CDT PM CDT Narrative CO [facility] - 2 3:11 PM CDT Within 72 hours prior to each chemothera py infusion. Clarita BRUNSON LAB BLOOD ORDERABLES Performing Organization Address City/State/ZIP Code Phon e Number [facility] CANCER Unless otherwise noted, [place] [address] CENTER all lab tests performed by: Division of Pathology and Laboratory Medicine [address] (ABNORMAL) Urine Culture (02/12/2022 12:26 PM CDT) Component Value Ref Test Analysis Performed At [facility] gist Range Method Time Signature Final Report >= 100,000 cfu/ml CO Klebsiella NEY pneumoniae (A) CANCER CENTER Path Review - The results have been review ed and electronically signed by Pathologist: CO Urine ARNULFO HAWKINS MD #[id number] A NDERSON (A) [facility]ER CENTER Organism Klebsiella CO pneumoniae kimberly BREWSTER pneumoniae (A) CANCER CENTER Specimen Anatomical Collection Method Collection Time Receive d Time (Source) Location / / Volume Laterality Urine 02/12/2022 12:26 02/12/2022 1:41 PM CDT PM CDT Organism Antibiotic Method Susceptibility Klebsiella [...] - GENERAL ORDER AMY Performing Organization Address City/[facility] [address]/[facility] Phon e Number [facility] CANCER Unless otherwise noted, [address] all lab tests performed by: Division of Pathology and Laboratory Medicine [address] [place] [address] (ABNORMAL) POC Glucose Screen (02/12/2022 11:22 AM [...] Sample Type Capillary POC TELCOR Performing Lab [facility] POC TELCO R Comment: [facility] Clinical Lab, [address], [place] [address]; Lab Direct or: Hayde King MD Specimen Anatomical Collection Method Collection Time Receive d Time (Source) Location / / Volume Laterality Blood 02/12/2022 11:22 02/12/2022 AM CDT 11:22 AM CDT Juani Lisa MD POCT ORDERABLES - DEVICE Performing Organization Address City/[facility] [address]/[facility] Phon e Number POC TELCOR (ABNORMAL) POC [...] Clean Dev Yes POC TELCOR Performing Lab [facility] POC TELCO R Comment: [facility] Clinical Lab, [address] [place] [id number]; Lab Direct or: Hayde King MD Specimen [...] Not Detected Not Detected [place] (SARS-CoV-2) [facility] COVID19 SARS Inpatient [place] Indication Admission [facility] Covid 19 See Note [place]OWN Comment [facility] Comment: The chika SARS-CoV-2 nucleic acid test [...] fact sheet for patients provided by the spiritual care coordinator ([employer]) can be reviewed at: https://www.fda.gov/media/397326/rene cerda A fact sheet for Health Care providers is provided by the spiritual care coordinator ([employer]) and can be reviewed at: https://www.fda.gov/media/993940/download Results must be interpreted within the c [...] and high-complexity tests. The Microbiology Laboratory at [facility], CLIA Accreditation #[id number] a pr CAP Accreditation #[id number], verified the performance characteristics of this assay. Internal controls are used to monitor all stages of the test process. Specimen (Source) Anatomical Collection Method Collection Time Re ceived Time Location / / Volume Laterality Nasopharyngeal Swab 02/12/2022 10:52 01/27 AM CDT 11:58 AM CDT Juani Lisa MD MICROBIOLOGY - GENERAL ORDER AMY Performing Organization Address City/State/ZIP Code Phon e Number [facility] CANCER Unless otherwise noted, [place] [address] [place] all lab tests performed by: Division of Pathology and Laboratory Medicine [address] aPTT (02/12/2022 10:52 AM CDT)Only the most recent of2 resultswithin the time period is included. P athologist Signature aPTT 28.2 22.8 - 34.2 [facility] second(s) CANCER CENTER Specimen Anatomical Collection Method Collection Time Receive d Time (Source) Location / / Volume Laterality Blood 02/12/2022 10:52 02/12/2022 AM CDT 11:03 AM CDT Juani Lisa MD LAB BLOOD ORDERABLES Performing Organization Address City/State/ZIP Code Phon e Number [facility] CANCER Unless otherwise noted, [address] all lab tests performed by: Division of Pathology and Laboratory Medicine [address] Blood Culture (02/12/2022 10:52 AM CDT) Component Value Ref Test Analysis Performed At Patholo gist Range Method Time Signature Final Report No growth [facility] Path Review - Culture yield may be affecte d by sample quality, prior treatment, and transportation conditions. CO Bottle/Isolat ... NEY or The results have been reviewed and electronically signed b y Pathologist: ALFREDO Callahan MD, PhD #[id number] C ENTER Specimen Anatomical Collection Method Collection Time Receive d Time (Source) Location / / Volume Laterality Blood 02/12/2022 10:52 02/12/2022 (Venipuncture-Ri AM CDT 12:01 PM CD T ght) Comment: arm Juani Lisa MD MICROBIOLOGY - GENERAL ORDER AMY Performing Organization Address City/[facility] [address]/ZIP Code Phon e Number [facility] CANCER Unless otherwise noted, [address] all lab tests performed by: Division of Pathology and Laboratory Medicine [facility] Prothrombin Time with INR (02/12/2022 10:52 AM CDT)Only the most recent of2 resultswithin the time period is included. P athologist Signature PT 12.2 11.5 - 13.9 [facility] second(s) CANCER CENTER INR 0.97 0.90 - 1.10 [facility] Specimen Anatomical Collection Method Collection Time Receive d Time (Source) Location / / Volume Laterality Blood 02/12/2022 10:52 02/12/2022 AM CDT 11:03 AM CDT Juani Lisa MD LAB BLOOD ORDERABLES Performing Organization Address City/[facility] [address]/ZIP Code Phon e Number [facility] CANCER Unless otherwise noted, [address] all lab tests performed by: Division of Pathology and Laboratory Medicine [address] LDH (02/12/2022 10:52 AM CDT) athologist Signature LDH 186 135 - 214 [facility] U/L [facility] Comment: Results greater than 1651 U/L m [...] Organization Address City/State/ZIP Code Phon e Number [facility] CANCER Unless otherwise noted, [address] all lab tests performed by: Division of Pathology and Laboratory Medicine [address] [place] [address] Ammonia Level (02/12/2022 10:52 AM CDT) athologist Signature Ammonia <13 11 - 51 [facility] Specimen Anatomical Collection Method Collection Time Receive d Time (Source) Location / / Volume Laterality Blood 02/12/2022 10:52 02/12/2022 AM CDT 11:09 AM CDT Juani Lisa MD LAB BLOOD ORDERABLES Performing Organization Address City/[facility] [address]/ZIP Code Phon e Number [facility] Unless otherwise noted, [address] all lab tests performed by: Division of Pathology and Laboratory Medicine [address] Head without Contrast (02/12/2022 10:42 AM CDT) Anatomical Region Laterality Modality Head Computed Tomography Specimen (Source) Anatomical Collection Method Collection Time Re ceived Time Location / / Volume Laterality 02/12/2022 10:44 AM CDT Impressions 02/12/2022 11:09 AM CDT No acute intracranial abnormality. I personally reviewed these image(s) suraj tuttle with the resident's/fellow's interpretations, certify that [...] abnormality. I personally reviewed these image(s) suraj tuttle with the resident's/fellow's interpretations, certify that [...] rest quietly for approximately 60-90 minutes. PET/CT imag ing was performed from the skull to the [...] opacities o f uncertain etiology. Clarita BRUNSON IMUmu PETCT ORDERABLES COVID-19 (SARS-CoV-2) PCR-Asymptomatic (01/28/2022 11:00 AM CDT) [facility] Method Time Signature COVID19 (SARS Not Detected Not Detected [place] CoV-2) [facility] Comment: This test is a qualitative reverse-trans criptase polymerase chain reaction (RT- PCR) developed for the [employer] CHIKA 6800 system and intended for qualitative detection of SARS CoV-2 RNA in nasopharyngeal a nd oropharyngeal swab specimens collecte d from any individuals, including those suspected o f COVID-19 by their healthcare provider, and those without symptoms or other reasons to suspect COVID-19. A fact sheet for patients provided by the spiritual care coordinator ( [employer]) can be rev iewed at: https://www.fda.gov/media/578524/downloa d. A fact sheet for Health Care providers is provided by the spiritual care coordinator ([employer]) and can be reviewed at: https://www.fda.gov/media/748733/download Results must be interpreted within the c [...] were verified by the Microbiology Laboratory at [facility], CLIA Accreditation #: [id number] and CAP Accreditation #: [id number]. COVID19 SARS Source ELECTROTYPER HELPER Swab CO MD XIONG [facility] COVID19 SARS Indication Pre-Radiation Therapy [facility] Specimen (Source) Anatomical Collection Method Collection Time Re ceived Time Location / / Volume Laterality Nasopharyngeal Swab 01/28/2022 11:00 06/0 09/2021 AM CDT 12:23 PM CDT Melvin Bravo MD MICROBIOLOGY - GENERAL ORDER AMY Performing Organization Address City/State/ZIP Code Phon e Number [facility] CANCER Unless otherwise noted, [place] [address] [place] all lab tests performed by: Division of Pathology and Laboratory Medicine [address] [place] [address] Myocardial Perfusion Spect (Stress And Rest) (01/11/2022 [...] artery calcium score evaluation was performed on [employer] workstation. Triple vessel atherosclerosis noted. Race: White [...] artery calcium score evaluation was performed on [employer] workstation. Triple vessel atherosclerosis noted. Race: White Gender: Female Age: 61 Estimated probability of a non-zero calc ium score: 38% Observed calcium score: 5069 Percentile: 99% Reference: Circulation. 2005Aug 31; 113( 1):30-7. [...] attachment that is no t available. Emily Lisa ELECTROTYPER HELPER ECG ORDERABLES Performing Organization Address City/State/ZIP Code [...] volumes were not performed in this [facility]. Cardiac Mechanics/Speckle Tracking Imagi ng: Normal global [...] Normal = 100 Normal global longitudinal peak sy stolic value X - Cannot 1 - Normal 2 - 3 - Akinetic 4 - Dyskinetic Interpret Hypokinetic 5 - Aneurysmal 3D imaginD volumes were not performed in [facility]. Cardiac Mechanics/Speckle Tracking Imagi ng: Normal global [...] 3.8 cm LVOT diam: 2.2 cm EDV(MOD-A4C): 74. 3 ml ESV(MOD-A4C): 32.1 ml LVOT area: 3.9 cm2 EF(MOD-A4C): 56.7 % EDV(MOD-A2C): 85.9 ml ESV(MOD-A2C): 34.0 ml EDV(MOD-bp): 8 2.3 ml EF(MOD-A2C): 60.4 % ESV(MOD-bp): 33. 1 ml EF(MOD-bp): 59.8 % LAV(MOD-A2C): 26.7 ml EDV (MOD-bp) Index: 55.8 ml/m2 LAV(MOD-A4C): 26.7 ml LAV(MOD-bp): 28.8 ml LAV(MOD-bp) Indexed: 19.5 ml/m2 ESV (MOD-bp) Index: 22.4 ml/m2 RWT: 0.30 cm TAPSE (>1.6): 1.7 cm Doppler Measurements MV E max lucy: 81.5 cm/sec MV V2 max: 118.6 cm/sec MV A max lucy: 128.6 cm/sec MV max PG : 5.6 mmHg MV E/A: 0.63 MV V2 mean: 67.9 cm/sec MV mean P.1 mmHg MV V2 VTI: 25.2 cm MVA(VTI): 2.8 cm2 MV dec time: 0.18 sec Ao V2 max: 122. 9 cm/sec Ao max P.0 mmHg Ao V2 mean: 88.6 cm/sec Ao mean P.5 mmHg Ao V2 VTI: 23.8 cm SUZAN(I,D): 3.0 cm2 SUZAN(V,D): 3.1 cm2 LV V1 max P.8 mmHg SV(LVOT): 71 .6 ml LV V1 mean P.8 mmHg LV V1 max: 97.1 cm/sec LV V1 mean: 61.9 cm/sec LV V1 VTI: 18.5 cm Med Peak E' Lucy: 5.4 cm/sec Lat Peak E' Lucy: 5.3 cm/sec TR max lucy: 257.2 cm/sec RAP systole : 3.0 mmHg TR max P.5 mmHg RVSP(TR): 29.5 mmHg RV S Vel_phl: 9.3 cm/sec SUZAN Index (I ,D): 2.0 SUZAN Index (V,D): 2.1 Dimensionless I ndex: 0.79 E/e' (avg): 15.2 E/e' (lat): 15.3 E/e' (sept): 15.0 60 Melvin Bravo MD CV ECHO ORDERABLES Performing Organization Address City/[facility] [address]/ZIP Code Phon e Number ISCV (ABNORMAL) Hemoglobin A1c (01/06/2022 10:58 AM CDT) athologist Signature A1C 8.2 (H) 4.3 - 5.6 % [facility] Comment: HbA1c values >=6.5% are diagnostic of di abetes mellitus. Diagnosis should be confirmed by repeat testing. Therapeutic Action suggested: >8.0% HbA1 c; Goal of therapy: <7.0% HbA1c Specimen Anatomical Collection Method Collection Time Receive d Time (Source) Location / / Volume Laterality Blood 01/06/2022 10:58 01/06/2022 AM CDT 11:22 AM CDT Melvin Bravo MD LAB BLOOD ORDERABLES Performing Organization Address [facility] [address]/[facility] Phon e Number [facility] CANCER Unless otherwise noted, [place] [address] [place] all lab tests performed by: Division of Pathology and Laboratory Medicine [facility] [address] Bilirubin Total (01/06/2022 10:58 AM CDT) athologist Signature Bili Total 0.4 <=1.2 mg/dL [facility] Comment: Indocyanine Green (ICG) may cause falsel [...] 01/06/2022 AM CDT 11:21 AM CDT Narrative [facility] CENTER - 01/06 11:57 AM CDT Within 72 hours prior to chemotherapy. Clarita BRUNSON LAB BLOOD ORDERABLES Performing Organization Address [facility] [address]/ZIP Code Phon e Number [facility] DIAGNOSTIC Unless otherwise noted, [place] [address] [place] all lab tests performed by: Division of Pathology and Laboratory Medicine [address] (ABNORMAL) Lipid Panel (01/06/2022 10:58 AM CDT) athologist Signature Chol 333 (H) <=199 mg/dL [facility] DIAGNOSTIC [place] Comment: ATP III Classification of Total Choleste rol Primary Target of Therapy (in mg/dL): <200 Desirable 200-239 Borderline high >=240 High Trig 207 (H) <=149 mg/dL [facility] GNOSTIC [place] Comment: ATP III Classification of Serum Triglyce rides Primary Target of Therapy (in mg/dL): <150 Normal 150-199 Borderline high 200-499 High >=500 Very high Non-fasting triglycerides >200 mg/dL may be followed up with a fasting Lipid Panel. Calculated LDL-C may be falsely decreased when non-fasting triglycerides >200 mg/dL. HDL 73 >=40 mg/dL [facility] NOSTIC [place] LDL 219 (H) <=100 mg/dL [facility] GNOSTIC [place] Comment: ATP III Classification of LDL Cholestero l Primary Target of Therapy (in mg/dL): <100 Optimal 100-129 Near optimal/above optimal 130-159 Borderline high 160-189 High >=190 Very high VLDL 41 mg/dL [facility] DIAGN OSTIC CENTER Specimen Anatomical Collection Method Collection Time Receive d Time (Source) Location / / Volume Laterality Blood 01/06/2022 10:58 01/06/2022 AM CDT 11:22 AM CDT Melvin Bravo MD LAB BLOOD ORDERABLES Performing Organization Address City/State/ZIP Code Phon e Number [facility] DIAGNOSTIC Unless otherwise noted, [place] [address] [place] all lab tests performed by: Division of Pathology and Laboratory Medicine [address] PETCT Subsequent Treatment Strategy (12/23/2021 4:54 PM [...] Comparison: Chest CT 11/15/2021. Technique: Following intravenous adminis tration of 8.7 mCi F-18 fluorodeoxyglucose (FDG), a [...] 146 gene STGA 2018 DNA Panel. If NGS Blood Control is not ordered, testing will be routed the 50-gene, CM50, panel. (12/23/2021 1:13 PM CDT) P athologist Signature Molecular Yes [facility] CANCER [place] (Received) Specimen Anatomical Collection Method Collection Time Receive d Time (Source) Location / / Volume Laterality Blood 12/23/2021 1:13 PM 2 2:54 CDT PM CDT Narrative [facility] - 2 2:54 PM CDT Please call and have her go to the lab Clarita GOLD HP MOLECULAR DIAG IF ORDERABLES Performing Organization Address City/State/ZIP Code Phon e Number [facility] CANCER Unless otherwise noted, [place] [address] CENTER all lab tests performed by: Division of Pathology and Laboratory Medicine Alana Arceo MD EML4/ALK Fusion Analysis with Interpretation and Report (12/23/2021 12:30 PM CDT) [facility] Method Time Signature Archived Previously 12/29/2021 SUJIT AP LABS Material diagnosed 10:18 AM CDT tissues from [id number] were selected for molecular analysis. Results will be reported separately. Specimen Anatomical Collection Method Collection Time Receive d Time (Source) Location / / Volume Laterality Tissue 12/23/2021 12:30 12/23/2021 PM CDT 12:30 PM CDT Clarita BRUNSON MDA IP AP BIOMARKERS Performing Organization Address City/State/ZIP Code Phon [place] [address] Alana Arceo MD ROS1 Fusion Analysis with Interpretation and Report (12/23/2021 12:30 PM CDT) [facility] gist Method Time Signature Archived Previously 12/29/2021 [facility] Material diagnosed 10:18 AM CDT tissues from [id number] were selected for molecular analysis. Results will be reported separately. Specimen Anatomical Collection Method Collection Time Receive d Time (Source) Location / / Volume Laterality Tissue 12/23/2021 12:30 12/23/2021 PM CDT 12:30 PM CDT Clarita BRUNSON MDA IP AP BIOMARKERS Performing Organization Address City/State/ZIP Code Phon [place] [address] [address] MD RET Fusion Analysis with Interpretation and Report (12/23/2021 12:30 PM CDT) [facility] gist Method Time Signature Archived Previously 12/29/2021 [facility] Material diagnosed 10:18 AM CDT tissues from [id number] were selected for molecular analysis. Results will be reported separately. Specimen Anatomical Collection Method Collection Time Receive d Time (Source) Location / / Volume Laterality Tissue 12/23/2021 12:30 12/23/2021 PM CDT 12:30 PM CDT Clarita BRUNSON MDA IP AP BIOMARKERS Performing Organization Address City/[facility] [address]/ZIP Code Phon [place] [address] [address] MD NTRK3 Fusion Analysis with Interpretation and Report (12/23/2021 12:30 PM CDT) [facility] gist Method Time Signature Archived Previously 12/29/2021 [facility] Material diagnosed 10:17 AM CDT tissues from [id number] were selected for molecular analysis. Results will be reported separately. Specimen Anatomical Collection Method Collection Time Receive d Time (Source) Location / / Volume Laterality Tissue 12/23/2021 12:30 12/23/2021 PM CDT 12:30 PM CDT Clarita BRUNSON MDA IP AP BIOMARKERS Performing Organization Address City/[facility] [address]/ZIP Code Phon [place] [address] [address] MD NTRK2 Fusion Analysis with Interpretation and Report (12/23/2021 12:30 PM CDT) [facility] gist Method Time Signature Archived Previously 12/29/2021 [facility] Material diagnosed 10:17 AM CDT tissues from [place] [address] were selected for molecular analysis. Results will be reported separately. Specimen Anatomical Collection Method Collection Time Receive d Time (Source) Location / / Volume Laterality Tissue 12/23/2021 12:30 12/23/2021 PM CDT 12:30 PM CDT Clarita BRUNSON MDA IP AP BIOMARKERS Performing Organization Address City/[facility] [address]/ZIP Code [place] [address] Alana Arceo MD NTRK1 Fusion Analysis with Interpretation and Report (12/23/2021 12:30 PM CDT) [facility] gist Method Time Signature Archived Previously 12/29/2021 [facility] Material diagnosed 10:18 AM CDT tissues from [place] [address] were selected for molecular analysis. Results will be reported separately. Specimen Anatomical Collection Method Collection Time Receive d Time (Source) Location / / Volume Laterality Tissue 12/23/2021 12:30 12/23/2021 PM CDT 12:30 PM CDT Clarita BRUNSON MDA IP AP BIOMARKERS Performing Organization Address City/[facility] [address]/ZIP Code [place] [address] Alana Arceo MD KRAS Interpretation and Report (12/23/2021 12:30 PM CDT) [facility] gist Method Time Signature Archived Previously 12/29/2021 [facility] Material diagnosed 10:18 AM CDT tissues from [id number] were selected for molecular analysis. Results will be reported separately. Specimen Anatomical Collection Method Collection Time Receive d Time (Source) Location / / Volume Laterality Tissue 12/23/2021 12:30 12/23/2021 PM CDT 12:30 PM CDT Clarita BRUNSON MDA IP AP BIOMARKERS Performing Organization Address City/[facility] [address]/ZIP Code Phon [place] [address] Alana Arceo MD EGFR (Exon 18, 19, 20, 21) Mutation Analysis with Interpretation and Report (12/23/2021 12:30 PM CDT) [facility] gist Method Time Signature Archived Previously 12/29/2021 [facility] Material diagnosed 10:18 AM CDT tissues from [id number] were selected for molecular analysis. Results will be reported separately. Specimen Anatomical Collection Method Collection Time Receive d Time (Source) Location / / Volume Laterality Tissue 12/23/2021 12:30 12/23/2021 PM CDT 12:30 PM CDT Clarita BRUNSON MDA IP AP BIOMARKERS Performing Organization Address City/State/ZIP Code Phon [place] [address] 1515 Radha Arceo MD BRAF V600 E Interpretation and Report (12/23/2021 12:30 PM CDT) [facility] gist Method Time Signature Archived Previously 12/29/2021 MDA AP LABS Material diagnosed 10:18 AM CDT tissues from [id number] were selected for molecular analysis. Results will be reported separately. Specimen Anatomical Collection Method Collection Time Receive d Time (Source) Location / / Volume Laterality Tissue 12/23/2021 12:30 12/23/2021 PM CDT 12:30 PM CDT Clarita BRUNSON MDA IP AP BIOMARKERS Performing Organization Address City/[facility] [address]/ZIP Code [place] [address] 1515 Radha Arceo FISH ROS1 Interpretation and Report (12/23/2021 12:30 PM CDT) Specimen Anatomical Collection Method Collection Time Receive d Time (Source) Location / / Volume Laterality Tissue 12/23/2021 12:30 12/23/2021 PM CDT 12:30 PM CDT Clarita BRUNSON MDA IP AP BIOMARKERS Performing Organization Address City/State/ZIP Code [place] [address] 1515 Radha Arceo FISH RET Mutation Interpretation and Report (12/23/2021 12:30 PM CDT) Specimen Anatomical Collection Method Collection Time Receive d Time (Source) Location / / Volume Laterality Tissue 12/23/2021 12:30 12/23/2021 PM CDT 12:30 PM CDT Clarita BRUNSON MDA IP AP BIOMARKERS Performing Organization Address City/[facility] [address]/ZIP Code [place] [address] 1515 [address] [place] FISH MET Interpretation and Report (12/23/2021 12:30 PM CDT) Specimen Anatomical Collection Method Collection Time Receive d Time (Source) Location / / Volume Laterality Tissue 12/23/2021 12:30 12/23/2021 PM CDT 12:30 PM CDT Clarita BRUNSON MDA IP AP BIOMARKERS Performing Organization Address City/[facility] [address]/ZIP Code [place] [address] [address] [place] FISH ALK translocation Interpretation and Report (12/23/2021 12:30 PM CDT) Specimen Anatomical Collection Method Collection Time Receive d Time (Source) Location / / Volume Laterality Tissue 12/23/2021 12:30 12/23/2021 PM CDT 12:30 PM CDT Clarita BRUNSON MDA IP AP BIOMARKERS Performing Organization Address [facility] [address]/ZIP Code [place] [address] [address] [place] MRI Brain with and without Contrast (12/22/2021 [...] No acid fast ROCK BROWN bacteria isolated NEY at 8 weeks. [facility] CENTER Path Review - Partial antibiotic treatment can render AFB culture negative. AFB culture has sensitivity of 90%. [employer] The results have been reviewed and electronically signed b y Pathologist: NEY HAWKINS MD #[id number] C [facility] Acid Fast No Acid Fast [place] Stain Truant Bacilli seen in MAYO direct smear [facility] Specimen Anatomical Collection Method Collection Time Receive d Time (Source) Location / / Volume Laterality Sputum 12/15/2021 3:47 PM 2 9:55 CDT PM CDT Narrative CO [facility] - 2 8:01 PM CDT Cultures are held 8 weeks before finaliz ation. Chuy Srinivasan MD MICROBIOLOGY - GENERAL ORDER AMY Performing Organization Address City/State/ZIP Code Phon e Number [facility] CANCER Unless otherwise noted, [place] [address] MCCLURE all lab tests performed by: Division of Pathology and Laboratory Medicine [address] [place] [address] Pathology Biopsy Interpretation (12/15/2021 3:03 PM CDT) Component Value Ref Test Analysis Performed Pathologis t Range Method Time At [facility] Addendum 1 PD-L1 (Clone 22C3, Dako PharmDx) Tumoral Proport ion Score (TPS): 0% 12/16/2021 [facility] AP LABS Addendum Assay Information: This assa y is manufactured by [employer] and uses a monoclonal anti-PD-L1, clone 22C3. It is performed on formalin-fixed paraffin- embedded tissue using an [employer] Dako autostainer a 4: 39 PM electronically nd polymer based detection k it, as specified by the spiritual care coordinator. It is approved for use as a certifed refrigeration operator diagnostic assay for specific therapies on certain tumor types. Interpretation guidelines vary. Fo CDT signed by r tumoral percentage score ( TPS), the percentage of tumoral membranous labeling of any intensity is assessed. Please refer to the intended therapy package insert for appropriate use of results. Kuldeepa Mark garcia characteristics on other tissue types such decalcified specimens and on non-approved tumor types and therapies cannot be guaranteed. MD Liv on 12/17/19 at 4:38 PM Submitted Lung mass [R91.8] 12/16/2021 [facility] Clinical 4:39 PM History CDT Diagnosis A. Lung, left upper lobe, endobronchial biopsy: 12/16/2021 [facility] Electronically 4:39 PM signed by SQUAMOUS CELL CARCINOMA CDT Mark Peck MD AW/DAVID on 12/17/19 at 12/16/2021 9:10 AM Gross A: 12/16/2021 [facility] AP LABS Description Lung, left upper lobe, endob ronchial biopsy: Multiple soft, friable, jules to jules-brown tissue fragments, 0.8 x 0.4 x 0.2 cm in aggregate, entirely submitted in A1. ET 4:39 PM CDT Biomarker Primary 12/16/2021 [facility] Block(s) Tumor block: A1 4:39 PM CDT Disclaimer "Some tests 12/16/2021 [facility] reported here may 4:39 PM have been CDT developed and performance characteristics determined by [facility] Pathology and Laboratory Medicine. These tests have not been specifically cleared or approved by the U.S. Food and Drug Administration. If applicable, controls were reviewed and showed appropriate reactivity." Specimen Anatomical Collection Method Collection Time Receive d Time (Source) Location / / Volume Laterality Tissue (Lung, 12/15/2021 3:03 PM 12/16/19 4:36 Left Upper Lobe) CDT PM CDT Comment: OBINNA BRONCHIAL TUMOR BIOPSY EBBX X6 Chuy Srinivasan MD LAB PATHOLOGY ORDERABLES Performing Organization Address City/[facility] [address]/[facility] Code Phon e Number [facility] [place], [place] [id number] [place] (ABNORMAL) Cytology Image-Guided FNA Interpretation (12/15/2021 2:59 PM CDT)Only the most recent of6 resultswithin the time period is included. Component Value Ref Test Analysis Performed Pathologis t Range Method Time At Signature Gross A: 12/16/2021 [facility] AP LABS Description Specimens procured: 2:03 PM 2 Diff Quik; 2 Pap Stain Slides CDT NO RINSE Size: 4.6 x 4.1 cm Specimen adequacy was performed by RENETTA Cook(ASCP). Immediate Adequate 12/16/2021 [facility] AP LABS Assessment cellularity 2:03 PM CDT Major MALIGNANT (A) 12/16/2021 [facility] Cyndi ctronically Classification 2:03 PM teja d by Eryn Field MD on 12/16/2021 at 2:03 PM Diagnosis A. Lung, left upper lobe hilar mass, touch preparation: 12/16/2021 [facility] Electronically 2:03 PM signed by Eryn Bass SQUAMOUS CELL CARCINOMA GITA Field MD on 12/16/2021 at 2:03 PM Comment Please see the 12/16/2021 [facility] concurrent biopsy 2:03 PM report CDT ([id number]) for further evaluation. Retained/Biomark SR: 4 S 12/16/2021 [facility] er Testing 2:03 PM Biomarker Testing: CDT MDDavid Cell Block: N/A MDL Pap: No MDL DQ: 1 Slide FISH DQ: 2 Slides Informational Some tests 12/16/2021 [facility] Points reported here may 2:03 PM have been CDT developed and performance characteristics determined by [facility] Pathology and Laboratory Medicine. These tests have not been specifically cleared or approved by the U.S. Food and Drug Administration. Specimen Anatomical Collection Method Collection Time Receive d Time (Source) Location / / Volume Laterality Fine Needle Asp 12/15/2021 2:59 PM 2021 5:12 (Lung, Left CDT PM CDT Upper Lobe) Comment: OBINNA BRONCHIAL TUMOR TOUCH PREP Chuy Srinivasan MD LAB CYTOLOGY ORDERABLES Performing Organization Address City/State/[facility] Code Phon e Number MDA AP LABS [facility] [place] [address] 1515 Radha Marielos RAYMOND MD, MDA JOSE: Mutation Analysis Precision Panel Report (12/15/2021 1:39 PM CDT) Specimen (Source) Anatomical Collection Method Collection Time Re ceived Time Location / / Volume Laterality 12/15/2021 1:39 PM CDT Narrative This result has an attachment that is no t available. [facility] ([place] [facility]OWN) Solid Tumor Genomic Assay Fusions 2018 Interpretation and Report (12/15/2021 1:39 PM CDT) Specimen (Source) Anatomical Collection Method Collection Time Re ceived Time Location / / Volume Laterality 12/15/2021 1:39 PM CDT Narrative This result has an attachment that is no t available. [facility] MOLECULAR DIAGNOSTICS ([place] BROWN) CG ALK FISH Interpretation and Report (12/15/2021 12:39 PM CDT) Specimen (Source) Anatomical Collection Method Collection Time Re ceived Time Location / / Volume Laterality 12/15/2021 12:39 PM CDT Narrative This result has an attachment that is no t available. [facility] CYTOGENETICS ([facility]) CG ROS1 FISH Interpretation and Report (12/15/2021 12:39 PM CDT) Specimen (Source) Anatomical Collection Method Collection Time Re ceived Time Location / / Volume Laterality 12/15/2021 12:39 PM CDT Narrative This result has an attachment that is no t available. [facility] CYTOGENETICS ([facility]) CG MET FISH Interpretation and Report (12/15/2021 12:39 PM CDT) Specimen (Source) Anatomical Collection Method Collection Time Re ceived Time Location / / Volume Laterality 12/15/2021 12:39 PM CDT Narrative This result has an attachment that is no t available. [facility] CYTOGENETICS ([facility]) CG RET FISH Interpretation and Report (12/15/2021 12:39 PM CDT) Specimen (Source) Anatomical Collection Method Collection Time Re ceived Time Location / / Volume Laterality 12/15/2021 12:39 PM CDT Narrative This result has an attachment that is no t available. [facility] HP CYTOGENETICS (HP CG) Cytogenetics Specimen Collection -FFPE (12/15/2021 12:39 PM CDT) Patholo gist Method Time Signature Elisa Das Link [id number] [place] [address] Cytogenetics Yes CO (Received) [facility] Specimen Anatomical Collection Method Collection Time Receive d Time (Source) Location / / Volume Laterality FFPE 12/15/2021 12:39 12/28/2021 PM CDT 12:39 PM CDT Clarita BRUNSON MDA HP CG NONBLOOD COLLECTIO NS Performing Organization Address City/State/ZIP Code Phon e Number [facility] CANCER Unless otherwise noted, [place] [address] MCCLURE all lab tests performed by: Division of Pathology and Laboratory Medicine [facility]5 Radha Arceo (ABNORMAL) SPIROMETRY W/O DILATORS, DLCO AND BODY [...] Askew MD PFT ORDERABLES Performing Organization Address City/[facility] [address]/ZIP Code Phon e Number KRISTIN 6 minute walk test (12/14/2021 3:16 PM CDT) Specimen (Source) Anatomical Collection Method Collection Time Re ceived Time Location / / Volume Laterality 12/14/2021 2:51 PM CDT Narrative This result has an attachment that is no t available. Ethan Askew MD PFT ORDERABLES Performing Organization Address City/[facility] [address]/ZIP Code Phon e Number KRISTIN BROWN COVID-19 (ROSE-CoV-2) PCR Asymptomatic (12/14/2021 7:25 AM CDT) Component Value Ref Range Test Analysis Performed Pathologis t Method Time At [facility] COVID19 SARS Pre-Out of OR UT Indication Procedure [facility] COVID19 SARS Not Detected Not UT Result Detected [facility] COVID19 SARS SARS-CoV-2 NOT Detected. UT Interpretation NEY Reference Range: Not Detected [facility] Methodology: The Humphrey Real Time SARS-CoV-2 assay is a qualitative real-time reverse inpatient nursing aide polymerase chain reaction (photograph editor-PCR) test to detect RNA from SARS-CoV-2 in nasal, nasopharyngeal and oropharyngeal swabs from patients with signs and symptoms of infection who ar e suspected of COVID-19 by their health care provider. The Humphrey RealTime SARS-CoV-2 performed on the [employer] Pet Care000 System is a dual target assay with [...] laboratories certified under the Clinical Laboratory Improvement Balnca ndments of 1988 (CLIA), 42U.S.C. 263a, to perform high complexity tests. The T est was performed by the CLIA-certified, high- complexity Molecular Diagnostics Laboratory (MDL) at [facility] under the Food and Drug Administration (FDA) s Emergency Use Authorization. Factsheet for patients: https://www.[facility].org/AbbottFac tSheetPatients Factsheet for healthcare pro viders: https://www.[facility].org/AbbottFactSheetHCP Test performed by: [facility] Molecular Diagnostic Lab [address] [place] [address] Specimen (Source) Anatomical Collection Method Collection Time Re ceived Time Location / / Volume Laterality Nasopharyngeal Swab 12/14/2021 7:25 04/03/2022 AM CDT 10:13 AM CDT Chuy Srinivasan MD MICROBIOLOGY - GENERAL ORDER AMY Performing Organization Address City/State/ZIP Code Phon e Number [facility] CANCER Unless otherwise noted, [place] [address] CENTER all lab tests performed by: Division of Pathology and Laboratory Medicine [address] [place] [address] US Leg Venous Doppler Left (12/11/2021 4:51 [...] P athologist Signature HBc Total Negative Negative UT Ab-[facility] CANCER [place] Comment: Test Performed by: [facility] [address] [place] [address] 171 Mash Filter Cloth Changer: Jerry Wu M.D. Ph. D.; CLIA# [id number] Specimen Anatomical Collection Method Collection Time Receive d Time (Source) Location / / Volume Laterality Blood 12/08/2021 5:50 PM 2 6:47 CDT PM CDT Sukhjinder Cardoza MD LAB BLOOD ORDERABLES Performing Organization Address City/State/ZIP Code Phon e Number [facility] CANCER Unless otherwise noted, [place] [address] CENTER all lab tests performed by: Division of Pathology and Laboratory Medicine [facility]5 [facility] TMP HCV Ab Path Interp (12/08/2021 5:50 PM CDT) [facility] Method Time Signature HCV Ab Path There is NO [facility] serologic DONOR CENTER evidence of Hepatitis C virus antibody. Comment: EDUARDA SINGH MD - [id number] Dictated by: EDUARDA SINGH MD - 1200 6 Dictated Date/Time: 12.10.2021 8:22 AM C DT Transcribed Date/Time: 12.10.2021 8:22 AM CDT Electronically Signed By: EDUARDA DURAND MD - [id number] on 12.10.2021 8:22 AM C Specimen Anatomical Collection Method Collection Time Receive d Time (Source) Location / / Volume Laterality Blood 12/08/2021 5:50 PM 2 2:46 CDT PM CDT Sukhjinder Cardoza MD LAB BLOOD ORDERABLES Performing Organization Address City/[facility] [address]/[facility] Code Phon e Number [facility] DONOR [address] [address] Hepatitis C Virus Ab (12/08/2021 5:50 PM CDT) [facility] Signature HCVAb. Non Reactive Non Reactive [facility] Comment: Antibody detection in the immunocompromi sed and immunosuppressed population may be delayed or absent entirely. Therefore serial testing, correlation with other clinical findings, and supplemental testin g (if available) should be taken into co nsideration when interpreting the results. Performed at: [facility] [address] [place] [address] Specimen Anatomical Collection Method Collection Time Receive d Time (Source) Location / / Volume Laterality Blood 12/08/2021 5:50 PM 2 2:46 CDT PM CDT Sukhjinder Cardoza MD LAB BLOOD ORDERABLES Performing Organization Address City/[facility] [address]/ZIP Code Phon e Number [facility] [address] [place] [address] Hepatitis B Surface Ag w/Confirm (12/08/2021 5:50 PM CDT) athologist Signature Hep Bs Ag-[place] Negative Negative [facility] Comment: Test Performed by: [facility] [address] [place], [place] [address] Mash Filter Cloth Changer: Jerry Wu M.D. Ph. D.; CLIA# [id number] Specimen Anatomical Collection Method Collection Time Receive d Time (Source) Location / / Volume Laterality Blood 12/08/2021 5:50 PM 2 6:47 CDT PM CDT Sukhjinder Cardoza MD LAB BLOOD ORDERABLES Performing Organization Address City/[facility] [address]/ZIP Code Phon e Number [facility] Unless otherwise noted, [address] all lab tests performed by: Division of Pathology and Laboratory Medicine Alana Arceo Hepatitis B Total Ig Core Ab (SCREENING) (anti-HBc total Ig; HBcAb total Ig) (12/08/2021 5:50 PM CDT) athologist Signature HBcAb Received See Note [facility] Comment: HBcAb was sent to a reference l ab for testing. Expect results on Hepatitis B Core Total Ab within 96 hours. Specimen Anatomical Collection Method Collection Time Receive d Time (Source) Location / / Volume Laterality Blood 12/08/2021 5:50 PM 2 6:46 CDT PM CDT Sukhjinder Cardoza MD LAB BLOOD ORDERABLES Performing Organization Address City/[facility] [address]/ZIP Code Phon e Number [facility] Unless otherwise noted, [address] all lab tests performed by: Division of Pathology and Laboratory Medicine Alana Arceo Cryptococcal Ag Serum Path Review (12/08/2021 5:50 PM CDT) Component Value Ref Test Analysis Performed At [facility] Range Method Time Signature Crypto Ag, Reviewed and Electronically signed by Pathologist: CO Serum [place] ARNULFO HAWKINS MD #[id number] [facility] Comment: Reference Range: NEGATIVE The Cryptococcal Antigen Lateral Flow As say is a dipstick sandwich immunographic assay. Positive results will be titered. MD Kim SERRANO [id number] Dictated by: MD Kim SERRANO [id number] Dictated Date/Time: 12.10.2021 15:55 PM CDT Transcribed Date/Time: 12.10.2021 15:55 PM CDT Electronically Signed By: MD Kim KWON [id number] on 12.10.2021 15:55 PM Specimen Anatomical Collection Method Collection Time Receive d Time (Source) Location / / Volume Laterality Blood 12/08/2021 5:50 PM 2 2:38 CDT PM CDT Sukhjinder Cardoza MD MICROBIOLOGY - GENERAL ORDER AMY Performing Organization Address City/State/ZIP Code Phon e Number [facility] CANCER Unless otherwise noted, [address] all lab tests performed by: Division of Pathology and Laboratory Medicine [address] [place], [place] [address]shwetha Arceo Cryptococcal Antigen, Serum (12/08/2021 5:50 PM CDT) [facility] Method Time Signature Cryptococcal Ag Negative Negative CO MD Velez [facility] Specimen Anatomical Collection Method Collection Time Receive d Time (Source) Location / / Volume Laterality Blood 12/08/2021 5:50 PM 2 9:12 CDT PM CDT Sukhjinder Cardoza MD MICROBIOLOGY - GENERAL ORDER AMY Performing Organization Address City/State/ZIP Code Phon e Number [facility] CANCER Unless otherwise noted, [address] all lab tests performed by: Division of Pathology and Laboratory Medicine [facility] Radha Arceo T-spot Tuberculosis (12/08/2021 5:50 PM CDT) athologist [...] Lab test performed by: Lab Mnemonic: [facility] [address] [place] [id number] JOSEPH CONTRERAS MD,PHD Tspot TB NIL Cont Passed [facility] Specimen Anatomical Collection Method Collection Time Receive d Time (Source) Location / / Volume Laterality Blood 12/08/2021 5:50 PM 2 6:27 CDT PM CDT Narrative [facility] - 12/11/2021 12:15 PM CDT If scheduling this lab at one of the following locations, it can only be collected on Tuesday, Tuesday, and Tuesday due to collection/processing restrictions: [place] - [facility] DIAG LAB CTR [place] - [facility] DIAG LAB CTR [place] - [facility] DIAG LAB CTR [facility] DAIG LAB CTR DI [facility] DIAG LAB CTR [place] - [facility] DIAG LAB CTR Sukhjinder Cardoza MD LAB BLOOD ORDERABLES Performing Organization Address City/State/ZIP Code Phon e Number [facility] Histoplasma Ab Screen (12/08/2021 5:50 PM CDT) P athologist Signature Histo Immuno Negative Negative CO MD Ab-[facility] Comment: A negative complement fixation and immun odiffusion (CF/ID) result does not exclude the diagnosis of histoplasmosis. Repeat testing by CF/ID in 1-2 weeks if clinically indicated. Test Performed by: [place] [id number] [place] [address] Mash Filter Cloth Changer: Jrery Wu M.D. Ph. D.; CLIA# [id number] Histo Mycel Ab-[place] Negative Negative CO [facility] Histo Yeast Ab-[place] Negative Negative [facility] Specimen Anatomical Collection Method Collection Time Receive d Time (Source) Location / / Volume Laterality Blood 12/08/2021 5:50 PM 2 6:47 CDT PM CDT Sukhjinder Cardoza MD LAB BLOOD ORDERABLES Performing Organization Address [facility] Phon e Number [facility] Unless otherwise noted, [address] all lab tests performed by: Division of Pathology and Laboratory Medicine [address] [place] [address] Marielos Coccidioides Ab (12/08/2021 5:50 PM CDT) [facility] Cocci Comp Negative Negative CO MD Fix-[facility] Cocci IgG-[place] Negative Negative [facility] Cocci IgM-[place] Negative Negative [facility] Comment: A negative complement fixation and immun odiffusion (CompF/ImmDiff) result does not exclude the diagnosis of coccidioidomycosis. Repeat testing by CompF/ImmDiff in 2-3 weeks if clinically indicated. Test Performed by: [facility] [place] [id number] [place] [address] 20 Mash Filter Cloth Changer: Jerry Wu M.D. Ph. D.; CLIA# [id number] Specimen Anatomical Collection Method Collection Time Receive d Time (Source) Location / / Volume Laterality Blood 12/08/2021 5:50 PM 2 6:47 CDT PM CDT Sukhjinder Cardoza MD LAB BLOOD ORDERABLES Performing Organization Address [facility] Phon e Number [facility] Unless otherwise noted, [address] all lab tests performed by: Division of Pathology and Laboratory Medicine [address] [place] [address] Hepatitis B Surface Ag (12/08/2021 5:50 PM CDT) P athologist Signature HBsAg Received See Note [facility] Comment: HBsAg was sent to a reference l ab for testing. Expect results on Hepatitis B Surface Antigen w/ Confirm within 96 imani rs. Specimen Anatomical Collection Method Collection Time Receive d Time (Source) Location / / Volume Laterality Blood 12/08/2021 5:50 PM 6:46 CDT PM CDT Sukhjinder Cardoza MD LAB BLOOD ORDERABLES Performing Organization Address City/State/ZIP Code Phon e Number [facility] Unless otherwise noted, [address] all lab tests performed by: Division of Pathology and Laboratory Medicine [address] [place] [address] OSI Interventional (11/24/2021 2:13 PM CDT) Specimen [...] originated interpretation requested or a vailable. Sukhjinder HERNANDEZG OUTSIDE IMAGE ORDERABLES [facility] Chest (11/22/2021 2:12 PM CDT) Specimen (Source) Anatomical Location Collection Method / Collectio n Time Received Time / Laterality Volume Narrative Systemgenerated, Documentation - 022 2:12 PM CDT Study acquired at another institution. For comparison only. No MD Brew[place] originated interpretation requested or a vailable. 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
--- OUTSIDE RECORDS SUMMARY | 2022-08-23 12:07 | XMS REPORT | Continuity of Care Document ---
:1960 Author Organization [facility] t Address [address] [place] [address] Care Team Providers Name Role Phone Odette Mena MD Primary Care Physician [phone] Renetta Morillo Attending Clinician Unavailable SYSTEM, PROVIDER NOT IN Attending Clinician Unavailable IVORY RIVERA Attending Clinician Unavailable Aaron Davis APN Attending Clinician AARON DAVIS Attending Clinician Unavailable Lillian Camara RN Attending Clinician Unavailable Ruth Lim MD Attending Clinician RUTH LIM Attending Clinician Unavailable Emily Espino NP Attending Clinician EMILY ESPINO Attending Clinician Unavailable Katerine Hoffman Attending Clinician Gucci Kirkland RN Attending Clinician Unavailable Henrietta Lovett MD, V. Attending Clinician Li Currie MD Attending Clinician SILVER CARDOZA Attending Clinician Unavailable PARKER GIPSON Attending Clinician Unavailable Freddie Jolly MD Attending Clinician Kenya GILLETTE, Jovita Ji Attending Clinician Unavailable LI CURRIE Attending Clinician Unavailable Pamela Veloz Attending Clinician Unavailable Jorge PharmD, Mei Ji Attending Clinician Unavailable Scott PharmD, Jihan Attending Clinician Venecia Coles Attending Clinician Unavailable JOSE A WRIGHT Attending Clinician Unavailable Calista GILLETTE, Rubio Attending Clinician Unavailable Warren Paula Attending Clinician WARREN COLE Attending Clinician Unavailable Ana Jane Attending Clinician Unavailable Matthew Condon Attending Clinician Unavailable Sathya GILLETTE, Xin Hernandez Attending Clinician Unavailable Celso GILLETTE, Kirstin Granados Attending Clinician Unavailable Silver Cardoza MD Attending Clinician Adeel REED, Tresa Hansen Attending Clinician Philip BELCHER, Yoana Attending Clinician Sue To RN Attending Clinician Unavailable Faustino PharmD, Niki Brody Attending Clinician [phone] Lubna GILLETTE, Aliya Mccollum Attending Clinician Unavailable Cheli Alejandra RN Attending Clinician Unavailable RASHID EM Attending Clinician Unavailable Juani Lisa MD Attending Clinician Erin Monroe RN Attending Clinician Unavailable Roney GILLETTE AGPCNP, Tresa Brennan Attending Clinician [phone] Judah GILLETTE, Edwardo Mccollum Attending Clinician Unavailable Greta Trivedi Attending Clinician Cherrie CLOTH SHRINKING SUPERVISORMichaela Attending Clinician Xin l[place] APN Attending Clinician Alka Matos RN Attending Clinician Anders GILLETTE, Phyllis Attending Clinician Unavailable Michael Her RN Attending Clinician Unavailable Mary Grace Wilson Attending Clinician Unavailable Estella Connolly RN Attending Clinician Unavailable Adan Ji MD Attending Clinician [phone] Tez Enamoradoi J Attending Clinician Michael BROWN, Carter Attending Clinician Chuy Srinivasan MD Attending Clinician Baldemar Carpenter MD Attending Clinician Darcy BROWN, Soto Attending Clinician Lui Mendoza CRNA Attending Clinician Celia Ellis APN Attending Clinician Yareli Iverson Attending Clinician Sabas BROWN, Jose A Attending Clinician Sonny GILLETTE, Peter Ji Attending Clinician Unavailable Nas GILLETTE, Jeff Sanz Attending Clinician Unavailable Stefan BELCHER, Noni Attending Clinician ODETTE MENA Attending Clinician Unavailable Odette Mena MD Attending Clinician Doctor Unassigned, [place] Attending Clinician Unavailable UNKNOWN, ATTENDING Attending Clinician Unavailable Lab, Adc Fam Pob I Attending Clinician Unavailable Unknown, Attending Attending Clinician Unavailable JOSE A FLEMING Attending Clinician Unavailable CHUY SRINIVASAN Admitting Clinician Unavailable JOSE A FLEMING Admitting Clinician Unavailable Payers Payer Name Policy Type Policy Number Effective Date Expiration Date [place] PPO POS [id number] 2021 00:00:00 BCBS [facility] - [id number] 2020 OUT OF STATE 00:00:00 [facility] [id number] 2017 CHOICE 00:00:00 Problems Condition Condition Condition Status Onset Resolution Last Treating Co mments Source Name Details Category Date Date Treatment Clinician Date Malnutriti Malnutriti Disease Active U nivers on of on of 6-21 ity of moderate moderate 00:00: [place] degree degree 00 MD Radha casey [facility] 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 00[place] left 00 lung lung Anderso [facility] Chronic Chronic Disease Active Univers obstructiv obstructiv 12-23 it y of e e 00:00: [place] pulmonary pulmonary 00 disease disease Víctor carmela [facility] Coronary Coronary Disease Active Unive rs arterioscl arterioscl 12-23 it y of erosis erosis 00:00: [place] 00 MD Radha casey [facility] Coronary Coronary Disease Active Unive rs artery artery 4 [place]y of disease [place] disease [place] coronary coronary artery artery Andyolandao bypass bypass n graft graft [facility] Depression Depression Disease Active Overview : Univers NOS NOS 4-27 Formattin ity of 00:00: g of this note MD might be Radha sanford n from the Cancer original. Center 05/29 CMS regulator y import Chronic Chronic Disease Active Univers pain pain 12-23 ity of 00:00: [place] 00 MD Radha casey [facility] Depression Depression Disease Active U nivers NOS NOS 4 ity of 00:00: [place] 00 MD Radha casey [facility] Tobacco Tobacco Disease Active Univers dependence dependence - it y of syndrome syndrome 00:00: [place] 00 MD Radha casey [facility] Coronary Coronary Disease Active 2020-08 Unive rs artery artery 1-17 ity of disease disease 00:00: [place] [facility] COPD with COPD with Disease Active 2020-08 Uni vers asthma asthma 1-17 ity of 00:00: [place] [facility] Mixed Mixed Disease Active 2020-08 Univers hyperlipid hyperlipid 1-17 it y of emia emia 00:00: [place] [facility] Essential Essential Disease Active 2020-08 Uni vers hypertensi hypertensi 1-17 it y of on on 00:00: [place] [facility] Chronic Chronic Disease Active 2020-08 Univers back pain back pain 1-17 ity of 00:00: [place] [facility] History of History of Disease Active 2020-08 U nivers skin skin 1-17 ity of cancer cancer 00:00: [place] [address] [facility] Atelectasi Atelectasi Disease Active 2016-[address] [facility] of both s of both 1 [facility] lungs lungs 00:00: [place] [id number] Center S/P CABG x S/P CABG x Disease Active 2016-[address] [facility] 3 09[facility]26 [facility] Acute Acute Disease [...] pulmonary 09-26 [facility] edema edema 00:00: Medical 00 Center ACBx3 ( ACZeinax3 (DrJadiel Disease Active 2016-[address] Cornelio, Cornelio, 09-25 [facility] 07.27.17) 07.27.17) 00:00: [facility] genoveva 00 Center Lung mass Lung mass Disease Resolve 2021-12-23 2021-12-23 Univers d 4-12 00:00:00 12:54:39 ity of 00:00: [place] 00 MD Radha casey [facility] Center Allergies, Adverse Reactions, Alerts Allergy Allergy Status Severity Reaction(s) Onset Inactive Treating Comm ents Source Name Type Date Date Clinician Medical Drug Active Itching 2016-[address] [facility] [address] [facility], Allergy 09-26 allergic [facility] Miscella 00:00: reaction Medica l neous 00 [place] Chlorhex Drug Active Itching 2016-08 [facility] rs idine Allergy 09-26 ity of 00:00: [place] 00 MD Radha [facility] CHLORHEX DRUG Active High ITCHING 2016-08 Ginette KRISHNAN INGREDI 09-26 ity of 00:00: [place] 00 [facility] CHLORHEX DRUG Active High Itching 2016-08 MD [...] CHLORHEX DRUG Active High Itching 2016-08 MD KRISNHAN INGREDI 09-26 Anderso 00:00: n 00 CHLORHEX [...] n 00 CHLORHEX DRUG Active High Itching 1 MD KRISHNAN INGREDI 09-26 Anderso 00:00: n [...] n 00 CHLORHEX DRUG Active High Itching 2016 MD KRISHNAN INGREDI 09-26 Anderso 00:00: n [...] CHLORHEX DRUG Active High Itching 2016-08 MD KRISNHAN INGREDI 09-26 Anderso 00:00: n 00 CHLORHEX [...] KRISHNAN INGREDI 09-26 Anderso 00:00: n 00 Family History Family Member Diagnosis Comments Start Date Stop Date Source Natural brother Atrial fibrillation [facility] Natural brother Coronary artery Univ ersity of disease [place] [facility] Natural father -Other cancer Univers ity of [place] [facility] Natural father Bladder Cancer Univer sity [facility] MD [facility] [place] Maternal uncle Heart failure Univers ity [facility] [place] [facility] Maternal uncle Bone cancer Universit y of [place] [facility] Natural mother Coronary artery Unive rsity of disease [place] [facility] Natural mother Diabetes University [facility] [place] [facility] Paternal Alzheimer's disease Unive rsity of grandfather [place] MD Jimenez [facility] Paternal uncle Colon cancer Universi of [place] [facility] Social History Social Habit Start Date Stop Date Quantity Comments Source History SDOH University o f Alcohol Std Drinks [facility] Exposure to 2022-07-25 2022-08-04 Not sure University of SARS-CoV-2 (event) 00:00:00 06:48:00 [facility] Alcohol intake 2022-08-04 2022-08-04 Current drinker Unive rsity of 00:00:00 00:00:00 of alcohol [place] MD [facility] (finding) [facility] Cigarettes smoked 2022-03-18 2022-03-18 Univers ity of current (pack per 00:00:00 00:00:00 Shey [place] ) - Reported Cancer Ce nter Cigarette 2022-03-18 2022-03-18 University of pack-years 00:00:00 00:00:00 [place] MD Brandt monzon [facility] Tobacco use and 2022-03-18 2022-03-18 Smokeless Universit y of exposure 00:00:00 00:00:00 tobacco non-user [facility] History of tobacco 2022-03-18 Cigarette Smoker University of use 00:00:00 [place] MD Brandt monzon [facility] Alcohol Comment 2021-12-17 2021-12-17 2-.3 every two Unive rsity of 00:00:00 00:00:00 weeks on average [facility] History SDOH 2021-12-08 2021-12-08 4 University o f Alcohol Frequency 00:00:00 00:00:00 [facility] History SDOH 2021-12-08 2021-12-08 1 University o f Alcohol Binge 00:00:00 00:00:00 [place] MD [facility] Education 2021-12-08 2021-12-08 13 University of 00:00:00 00:00:00 [place] MD Brandt monzon [facility] Sex Assigned At [address] [facility] paulino 00:00:00 00:00:00 [facility] Center Smoking Status Start Date Stop Date Source Ex-smoker 2022-03-18 00:00:00 2022-03-18 [facility] Medications Ordered Filled Start Stop Current Ordering Indication Dosage Frequency Signature Comments Components Source Medication Medication Date Date Medication? Clinician (SIG) Name Name HYDROcodone 2021-08 Yes Neoplasm 1{tbl} Take 1 Univers -acetaminop 2-21 related tablet by ity of hen (NORCO) 00:00: pain mouth [place] 10 mg-325 00 (acute) every 4 MD mg per (chronic) (four) Víctor o tablet hours as n needed Cancer (pain). Center aspirin 81 2021-08 Yes 81mg Chew 81 mg U nivers mg chewable 1-22 daily. ity of tablet 09:55: She[place] 57 MD Radha casey [facility] Center albuterol 2021-08 Yes 2.5mg Inhale 2.5 U nivers (PROVENTIL, 1-22 mg by ity of VENTOLIN) 09:55: mouth [place] 2.5 mg/3 mL 57 needed. MD (0.083%) Anderso nebulizer n solution Cancer Center OLANZapine 2021-08 Yes Other TAKE 0.5 Un mannie (ZyPREXA) 5 0-31 insomnia (ONE-HALF) ity of mg tablet 00:00: TABLET BY Ghulam as 00 MOUTH MD EVERY 6 Anderso HOURS n NEEDED FOR Cancer ANXIETY Center AND 1 TABLET AT BEDTIME FOR SLEEP metoclopram 2021-08 Yes Early 5mg Take 1 Uni vers emerald 0-31 satiety tablet (5 ity of (Reglan) 5 00:00: mg) by [place] mg tablet 00 mouth 3 MD (three) Anderso times a n day before Cancer meals. [place] HYDROcodone 2021-08- No Neoplasm 1{tbl} Take 1 Univers -acetaminop 0-31 12-21 related tablet by ity of hen (NORCO) 00:00: 00:00 pain mouth [place] 10 mg-325 00 :00 (acute) every 4 MD mg per (chronic) (four) Víctor o tablet hours as n needed Cancer (pain). [place] HYDROcodone 2021-08 No Neoplasm 1{tbl} Take 1 Univers -acetaminop 0-19 10-31 related tablet by ity of hen (NORCO) 00:00: 00:00 pain mouth [place] 10 mg-325 00 :00 (acute) every 4 MD mg per (chronic) (four) Víctor o tablet hours as n needed Cancer (pain). [place] cyclobenzap 2021-08 Yes 10mg Take 1 Univ ers rine 0-06 tablet (10 ity of (FLEXERIL) 00:00: mg) by [place] 10 mg 00 mouth 2 MD tablet (two) Anderso times a n day as Cancer needed. [place] HYDROcodone No Neoplasm 1{tbl} Take 1 Univers -acetaminop 9-20 10-19 related tablet by ity of hen (NORCO) 00:00: 00:00 pain mouth [place] 10 mg-325 00 :00 (acute) every 4 MD mg per (chronic) (four) Víctor o tablet hours as n needed Cancer (pain). [place] buPROPion Tobacco 150mg Take 1 U nivers (Wellbutrin 9-15 10-31 dependence tablet ity of XL) 150 mg 00:00: 00:00 syndrome (150 mg) [place] 24 hr 00 :00 by mouth MD tablet every Anderso morning. n Cancer Center Nicorette 2 Yes Tobacco 2mg Dissolve 1 Univers mg mini 8-24 dependence lozenge (2 ity of lozenge 00:00: syndrome mg) in the [place] 00 mouth MD every 2 Anderso (two) n hours as Cancer needed Center (smoking). Avoid acidic beverages 5 min before, during & after potassium No Squamous 10meq Take 1 Univers chloride 04-14 cell tablet (10 ity of (KLOR-CON) 00:00: 00:00 carcinoma mEq) by [place] 10 mEq CR 00 :00 of left mouth MD tablet lung twice Anderso daily. n Cancer Center amoxicillin No Squamous 875mg Take 1 Univers -clavulanat 04-14 cell tablet ity o f e 00:00: 04:59 carcinoma (875 mg) Ghulam as (Augmentin) 00 :00 of left by mouth M D 875 mg-125 lung twice Anderso mg per daily for n tablet 9 days. Cancer Center amoxicillin No Squamous 875mg Take 1 Univers -clavulanat 04-14 cell tablet ity o f e 00:00: 00:00 carcinoma (875 mg) Ghulam as (Augmentin) 00 :00 of left by mouth M D 875 mg-125 lung twice Anderso mg per daily. n tablet Cancer Center Nicoderm CQ Yes Tobacco Apply 2 Univers 21 mg/24 hr 04-13 dependence patch to ity of transdermal 00:00: syndrome skin and [place] patch 00 change MD patch Anderso daily as n directed Cancer for Center tobacco cessation (alternate sites). buPROPion 2021- No Tobacco 150mg Take 1 U nivers (Wellbutrin 04-13-15 dependence tablet ity of XL) 150 mg 00:00: 00:00 syndrome (150 mg) [place] 24 hr 00 :00 by mouth MD tablet every Anderso morning. n Cancer Center Nicorette 2 2021- No Tobacco 2mg Dissolve 1 Univers mg mini 04-13 08-24 dependence lozenge (2 ity of lozenge 00:00: 00:00 syndrome mg) in the [place] 00 :00 mouth MD every 2 Anderso (two) n hours as Cancer needed Center (smoking). Avoid acidic beverages 5 min before, during & after HYDROcodone 2021- No Neoplasm 1{tbl} Take 1 Univers -acetaminop 04-0620 related tablet by ity of hen (NORCO) 00:00: 00:00 pain mouth [place] 10 mg-325 00 :00 (acute) every 6 MD mg per (chronic) (six) Anderso tablet hours as n needed Cancer (pain). [place] [facility] CQ Yes Tobacco Apply 2 Univers 21 mg/24 hr 7-22 dependence patch to ity of transdermal 00:00: syndrome skin and [place] patch 00 change MD patch Anderso daily as n directed Cancer for Center tobacco cessation (alternate sites). buPROPion Yes Tobacco 150mg Take 1 Un mannie (Wellbutrin 03-19 dependence tablet ity of XL) 150 mg 00:00: syndrome (150 mg) [place] 24 hr 00 by mouth MD tablet every Anderso morning. n [facility] CQ 2021- No Tobacco Apply 2 Univers 21 mg/24 hr 03-19-16 dependence patch to ity of transdermal 00:00: 00:00 syndrome skin and [place] patch 00 :00 change MD patch Anderso daily as n directed Cancer for Center tobacco cessation (alternate sites). buPROPion 2021- No Tobacco 150mg Take 1 U nivers (Wellbutrin 03-19- dependence tablet ity of XL) 150 mg 00:00: 00:00 syndrome (150 mg) [place] 24 hr 00 :00 by mouth MD tablet every Anderso morning. n Cancer Center aspirin 81 Yes 81mg Chew 81 mg U nivers mg chewable 7-13 daily. ity of tablet 08:44: [place] 24 Andlivier n Cancer Center albuterol Yes 2.5mg Inhale 2.5 U nivers (PROVENTIL, 7-13 mg by ity of VENTOLIN) 08:44: mouth [place] 2.5 mg/3 mL 24 needed. MD (0.083%) Anderso nebulizer n [facility] Cancer [place] OLANZapine Yes Other TAKE 0.5 Un mannie (ZyPREXA) 5 - insomnia (ONE-HALF) ity of mg tablet 00:00: TABLET BY Ghulam as 00 MOUTH MD EVERY 6 Anderso HOURS n NEEDED FOR Cancer ANXIETY Center AND 1 TABLET AT BEDTIME FOR SLEEP OLANZapine 2021- No Other TAKE 0.5 U nivers (ZyPREXA) 5 02-22 10-31 insomnia (ONE-HALF) ity of mg tablet 00:00: 00:00 TABLET BY Kore[place] pace 00 :00 MOUTH MD EVERY 6 Anderso HOURS n NEEDED FOR Cancer ANXIETY Center AND 1 TABLET AT BEDTIME FOR SLEEP Nicoderm CQ 2021- No Tobacco Apply 2 Univers 21 mg/24 hr 02-22 dependence patch to ity of transdermal 00:00: 00:00 syndrome skin and [place] patch 00 :00 change MD patch Anderso daily as n directed Cancer for Center tobacco cessation (alternate sites). buPROPion 2021- No Tobacco 150mg Take 1 U nivers (Wellbutrin 02-22 dependence tablet ity of XL) 150 mg 00:00: 00:00 syndrome (150 mg) [place] 24 hr 00 :00 by mouth MD tablet every Anderso morning. n [facility] CQ 2021- No Tobacco Apply 2 Univers 21 mg/24 hr 02-22 dependence patch to ity of transdermal 00:00: 00:00 syndrome skin and [place] patch 00 :00 change MD patch Anderso daily as n directed Cancer for Center tobacco cessation (alternate sites). buPROPion 2021- No Tobacco 150mg Take 1 U nivers (Wellbutrin 02-22 dependence tablet ity of XL) 150 mg 00:00: 00:00 syndrome (150 mg) [place] 24 hr 00 :00 by mouth MD tablet every Anderso morning. n Cancer Center ondansetron Yes Squamous 8mg Take 1 Univers (ZOFRAN) 8 6-24 cell tablet (8 ity of mg tablet 00:00: carcinoma mg) by [place] 00 of left mouth MD lung every 8 Anderso (eight) n hours as Cancer needed for Center nausea or vomiting. HYDROcodone Yes Neoplasm 1{tbl} Take 1 Univers -acetaminop 6-24 related tablet by ity of ivette (NORCO) 00:00: pain mouth [place] 10 mg-325 00 (acute) every 6 MD mg per (chronic) (six) Anderso tablet hours as n needed Cancer (pain). Center ondansetron Yes Squamous 8mg Take 1 Univers (ZOFRAN) 8 6-24 cell tablet (8 ity of mg tablet 00:00: carcinoma mg) by [place] exmario 00 of left mouth MD lung every 8 Anderso (eight) n hours as Cancer needed for Center nausea or vomiting. HYDROcodone 2021- No Neoplasm 1{tbl} Take 1 Univers -acetaminop 6-24 08-09 related tablet by ity of hen (NORCO) 00:00: 00:00 pain mouth [place] 10 mg-325 00 :00 (acute) every 6 MD mg per (chronic) (six) Anderso tablet hours as n needed Cancer (pain). Center prochlorper Yes Squamous 10mg Take 1 Univers azine 6-22 cell tablet (10 ity of (Compazine) 00:00: carcinoma mg) by [place] 10 mg 00 of left mouth MD tablet lung every 6 Anderso (six) n hours as Cancer needed for Center nausea. prochlorper Yes Squamous 10mg Take 1 Univers [...] Cancer needed for Center nausea or vomiting. ondansetron 2021- No Squamous 8mg Take 1 Univers (ZOFRAN) 8 6-22 06-24 cell tablet (8 ity of mg tablet 00:00: 00:00 carcinoma mg) by [place] 00 :00 of left mouth MD lung every 8 Anderso (eight) n hours as Cancer needed for Center nausea or vomiting. HYDROcodone 2021- No Neoplasm 1{tbl} Take 1 Univers -acetaminop 6-15 02- related tablet by ity of hen (NORCO) 00:00: 00:00 pain mouth as [place] 10 mg-325 00 :00 (acute) needed MD mg per (chronic) (pain). Brandt so tablet [facility] HYDROcodone 2021- No Neoplasm 1{tbl} Take 1 Univers -acetaminop 6-24 related tablet by ity of hen (NORCO) 00:00: 00:00 pain mouth as [place] 10 mg-325 00 :00 (acute) needed MD mg per (chronic) (pain). Brandt so tablet [facility] nystatin 2021- No Oral thrush [id number] Swish and Univers (MYCOSTATIN 02-09 swallow 5 it y of ) 100,000 00:00: 04:59 mL [place] units/mL 00 :00 (500,000 MD suspension Units) 4 Brandt so (four) n times a Cancer day for 10 Center days. nystatin 2021- No Oral thrush [id number] Swish and Univers (MYCOSTATIN 02-09 swallow 5 [...] mouth MD tablet every Anderso morning. n [facility] buPROPion 2021- No Tobacco 150mg Take 1 U nivers (Wellbutrin 02-02 dependence tablet ity of XL) 150 mg 00:00: 00:00 syndrome (150 mg) [place] 24 hr 00 :00 by mouth MD tablet every Anderso morning. n [facility] Nicoderm CQ 2021- No Tobacco Apply 2 Univers 21 mg/24 hr 01-20 dependence patch to ity of transdermal 00:00: 00:00 syndrome skin and [place] patch 00 :00 change MD patch Anderso daily as n directed Cancer for Center tobacco cessation (alternate sites). Nicoderm CQ 2021- Tobacco Apply 2 Univers 21 mg/24 hr 01-20 dependence patch to ity of transdermal 00:00: 00:00 syndrome skin and [place] patch 00 :00 change MD patch Anderso daily as n directed Cancer for Center tobacco cessation (alternate sites). buPROPion 2021- Tobacco 300mg Take 1 U nivers (Wellbutrin 01-20 dependence tablet ity of XL) 300 mg 00:00: 00:00 syndrome (300 mg) [place] 24 hr 00 :00 by mouth MD tablet every Anderso morning. n [facility] buPROPion Tobacco 300mg Take 1 U nivers (Wellbutrin 01-20 dependence tablet ity of XL) 300 mg 00:00: 00:00 syndrome (300 mg) [place] 24 hr 00 :00 by mouth MD tablet every Anderso morning. n [facility] OLANZapine 2021- No Other Take half Univers (ZyPREXA) 5 01-14 insomnia tablet i ty of mg tablet 00:00: 00:00 every 6 [place] 00 :00 hours as MD needed for Anderso anxiety; n take 1 Cancer tablet at Center night for sleep OLANZapine 2021- No Other Take half Univers (ZyPREXA) 5 01-14 insomnia tablet i ty of mg tablet 00:00: 00:00 every 6 [place] 00 :00 hours as MD needed for Anderso anxiety; n take 1 Cancer tablet at Center night for sleep HYDROcodone 2021- No Neoplasm 1{tbl} Take 1 Univers -acetaminop 01-14-20 related tablet by ity of hen (NORCO) 00:00: 00:00 pain mouth as [place] 10 mg-325 00 :00 (acute) needed MD mg per (chronic) (pain). Brandt so tablet n [facility] HYDROcodone 2021- No Neoplasm 1{tbl} Take 1 Univers -acetaminop 5-20 related tablet by ity of hen (NORCO) 00:00: 00:00 pain mouth as [place] 10 mg-325 00 :00 (acute) needed MD mg per (chronic) (pain). Brandt so tablet n Cancer Center ondansetron 2021- No Squamous 8mg Take 1 Univers (ZOFRAN) 8 5-07 04-22 cell tablet (8 ity of mg tablet 00:00: 00:00 carcinoma mg) by [place] 00 :00 of left mouth MD lung every 8 Anderso (eight) n hours as Cancer needed for Center nausea or vomiting. ondansetron 2021- No Squamous 8mg Take 1 Univers (ZOFRAN) 8 5-07 04-22 cell tablet (8 ity of mg tablet 00:00: 00:00 carcinoma mg) by [place] 00 :00 of left mouth MD lung every 8 Anderso (eight) n hours as Cancer needed for Center nausea or vomiting. Nicoderm CQ 2021- No Tobacco Apply 1 Univers 21 mg/24 hr - 05-25 dependence patch to ity of transdermal 00:00: 00:00 syndrome skin and [place] patch 00 :00 change MD patch Anderso daily as n directed Cancer for Center tobacco cessation (alternate sites). buPROPion 2021- No Tobacco 150mg Take 1 U nivers (WELLBUTRIN 12-22-25 dependence tablet ity of XL) 150 mg 00:00: 00:00 syndrome (150 mg) [place] 24 hr 00 :00 by mouth MD tablet every Anderso morning. n Cancer Center Nicoderm CQ 2021- No Tobacco Apply 1 Univers 21 mg/24 hr 12-22 05-25 dependence patch to ity of transdermal 00:00: 00:00 syndrome skin and [place] patch 00 :00 change MD patch Anderso daily as n directed Cancer for Center tobacco cessation (alternate sites). buPROPion 2021- No Tobacco 150mg Take 1 U nivers (WELLBUTRIN 12-22 05-25 dependence tablet ity of XL) 150 mg 00:00: 00:00 syndrome (150 mg) [place] 24 hr 00 :00 by mouth MD tablet every Anderso morning. n Cancer [place] varenicline 2021- No Tobacco One Tablet Univers (CHANTIX) 1 12-17-26 dependence PO once a ity of mg tablet 00:00: 00:00 syndrome day x 7 [place] 00 :00 days then MD twice a Anderso day n Cancer Center varenicline 2021- No Tobacco One Tablet Univers (CHANTIX) 1 12-17 dependence PO once a ity of mg tablet 00:00: 00:00 syndrome day x 7 [place] 00 :00 days then MD twice a [facility] day n [facility] predniSONE 2021- No Chronic 40mg Take 2 U nivers (DELTASONE) 12-14-24 obstructive tablets ity of 20 mg 00:00: 04:59 pulmonary (40 mg) by [place] tablet 00 :00 disease, mouth MD not daily for Anderso otherwise 5 days. n specified Cancer Center doxycycline 2021- No Chronic 100mg Take 1 Univers (Vibramycin 12-14-24 obstructive capsule ity of ) 100 MG 00:00: 04:59 pulmonary (100 mg) [place] capsule 00 :00 disease, by mouth MD not twice Anderso otherwise daily for n specified 5 days. Cancer Center predniSONE 2021- No Chronic 40mg Take 2 U nivers (DELTASONE) 12-14-24 obstructive tablets ity of 20 mg 00:00: 04:59 pulmonary (40 mg) by [place] tablet 00 :00 disease, mouth MD not daily for Anderso otherwise 5 days. n specified Cancer [place] doxycycline 2021- No Chronic 100mg Take 1 Univers (Vibramycin 12-14-24 obstructive capsule ity of ) 100 MG 00:00: 04:59 pulmonary (100 mg) [place] capsule 00 :00 disease, by mouth MD not twice Anderso otherwise daily for n specified 5 days. Cancer [place] DULoxetine Yes 60mg Take 1 Unive rs (CYMBALTA) 4-01 capsule ity of 60 mg 00:00: (60 mg) by [place] capsule 00 mouth [facility]. [facility] ip[facility] Yes .2mg Inhale 1 Un mannie (ATROVENT) 4-01 mL by ity of 0.02% 00:00: nebulizati [place] nebulizer 00 on daily. MD beckie Garcia [facility] naloxone Yes 4mg Inhale 1 Unive rs (NARCAN) 4 4-01 spray into ity of mg/actuatio 00:00: each [place] n nasal 00 nostril as MD spray needed. [facility] clonazePAM Yes 2mg Take 1 Unive rs (KlonoPIN) 4-01 tablet (2 ity of 2 mg tablet 00:00: mg) [place] 00 mouth as [facility] 5mg Take 1 Unive rs (NORVASC) 5 4-01 tablet by ity of mg tablet 00:00: mouth [place] 00 daily. MD Radha casey [facility] albuterol Yes 1{puff} Inhale 1 U nivers (VENTOLIN 4-01 puff by ity of HFA,PROAIR 00:00: mouth as Ghulam as HFA) 90 00 needed. mcg/puff Radha torrez [facility] DULoxetine Yes 1{capsu Take 1 Un mannie (CYMBALTA) 4-01 le} capsule by ity of 60 mg 00:00: mouth [place] capsule 00 daily. MD Radha casey [facility] ipratropium Yes 1mL Inhale 1 Un mannie (ATROVENT) 4-01 mL by ity of 0.02% 00:00: nebulizati [place] nebulizer 00 on daily. MD butts [facility] naloxone Yes 1{spray Inhale 1 Un mannie (NARCAN) 4 4-01 } spray into ity of mg/actuatio 00:00: each [place] n nasal 00 nostril as MD spray needed. Radha [facility] clonazePAM Yes 1{tbl} Take 1 Uni vers (KlonoPIN) 4-01 tablet by ity of 2 mg tablet 00:00: [place] 00 needed. MD Garcia [facility] amLODIPine Yes 1{tbl} Take 1 Uni vers (NORVASC) 5 4-01 tablet by ity of mg tablet 00:00: mouth [place] 00 daily. MD Radha casey [facility] albuterol Yes 1{puff} Inhale 1 U nivers (VENTOLIN 4-01 puff by ity of HFA,PROAIR 00:00: mouth as Ghulam as HFA) 90 00 needed. MD mcg/puff Anderso inhaler [facility] Trelegy Yes 1{puff} Inhale 1 Uni vers Ellipta 3-30 puff by ity of 100-62.5-25 00:00: mouth [place] mcg dsdv 00 daily. MD Radha casey [facility] Tregy Yes 1{puff} Inhale 1 Uni vers Ellipta 3-30 puff by ity of 100-62.5-25 00:00: mouth [place] mcg dsdv 00 daily. MD Radha casey [place] 09.22 Yes 1[drp] Administer Univers % drop 3-21 1 drop to ity of 00:00: both eyes [place] 00 twice MD daily. Radha [facility] 09.22 Yes 1[drp] Administer Univers % drop 3-21 1 drop to ity of 00:00: both eyes [place] 00 twice MD daily. [facility] HYDROcodone 2021- No 1{tbl} Take 1 U nivers -acetaminop 3-07 05-19 tablet by it y of hen (NORCO) 00:00: 00:00 mouth [place] 10 mg-325 00 :00 needed. MD mg per Anderso tablet [facility] HYDROcodone 2021- No 1{tbl} Take 1 U nivers -acetaminop 3-07 05-19 tablet by it y of hen (NORCO) 00:00: 00:00 mouth [place] 10 mg-325 00 :00 needed. MD mg per Anderso tablet [facility] cyanocobala Yes 1000ug Inject 1 Univers min 1-03 mL into ity of (VITAMIN 00:00: the [place] B-12) 1,000 00 shoulder, MD mcg/mL thigh, or Anderso injection buttocks n every 30 Cancer (thirty) Center days. cyanocobala Yes 1mL Inject 1 Un mannie min 1-03 mL into ity of (VITAMIN 00:00: the [place] B-12) 1,000 00 shoulder, MD mcg/mL thigh, or Anderso injection buttocks n every 30 Cancer (thirty) Center days. IBUPROFEN 2020-08 Yes Take by Unive rs ORAL 1-17 mouth as ity of 09:28: needed. [address] IBUPROFEN 2020-08 Yes Take by Unive rs ORAL 1-17 mouth as ity of 09:28: needed. [address] IBUPROFEN 2020-08 Yes Take by Unive rs ORAL 1-17 mouth as ity of 09:28: needed. [address] duloxetine 2020-08 Yes Take by Univ ers HCl 1-17 mouth ity of (DULOXETINE 09:28: [place]. [place] OR[place] [facility] duloxetine 2020-08 Yes Take by Univ ers HCl 1-17 mouth ity of (DULOXETINE 09:28: daily. [place] ORAL[place] [facility] duloxetine 2020-08 Yes Take by Univ ers HCl 1-17 mouth ity of (DULOXETINE 09:28: daily. [place] ORAL[place] [facility] aspirin 81 2020-08 Yes 81mg Take 81 mg U nivers mg chewable 1-17 by mouth ity of tablet 09:18: daily. [address] albuterol 2020-08 Yes 2.5mg Inhale 2.5 U nivers 2.5 mg /3 1-17 mg every 4 ity of mL (0.083 09:18: (four) [place] %) 33 hours as Medical nebulizer needed for Bran ch solution Wheezing or Shortness of Breath. aspirin 81 2020-08 Yes 81mg Take 81 mg U nivers mg chewable 1-17 by mouth ity of tablet 09:18: daily. [address] albuterol 2020-08 Yes 2.5mg Inhale 2.5 U nivers 2.5 mg /3 1-17 mg every 4 ity of mL (0.083 09:18: (four) [place] %) 33 hours as Medical nebulizer needed for Bran ch solution Wheezing or Shortness of Breath. aspirin 2020-08 Yes 81mg Take 81 mg U nivers mg chewable 1-17 by mouth ity of tablet 09:18: daily. [address] albuterol 2020-08 Yes 2.5mg Inhale 2.5 U nivers 2.5 mg /3 1-17 mg every 4 ity of mL (0.083 09:18: (four) [place] %) 33 hours as Medical nebulizer needed for Bran ch solution Wheezing or Shortness of Breath. gabapentin 2020-08 Yes 800mg Take 800 Un mannie 800 mg 1-17 mg by ity of tablet 09:14: mouth 4 [place] 40 (four) Medical times Branch daily. albuterol 2020-08 Yes 2{puff} Inhale 2 U nivers (VENTOLIN 1-17 Puffs ity of HFA) 90 09:14: every 6 [place] mcg/actuati 40 (six) Medical on inhaler hours as Branc h needed for Wheezing or Shortness of Breath. gabapentin 2020-08 Yes 800mg Take 800 Un mannie 800 mg 1-17 mg by ity of tablet 09:14: mouth 4 [place] 40 (four) Medical times Branch daily. albuterol 2020-08 Yes 2{puff} Inhale 2 U nivers (VENTOLIN 1-17 Puffs ity of HFA) 90 09:14: every 6 [place] mcg/actuati 40 (six) Medical on inhaler hours as Branc h needed for Wheezing or Shortness of Breath. gabapentin 2020-08 Yes 800mg Take 800 Un mannie 800 mg 1-17 mg by ity of tablet 09:14: mouth 4 [place] 40 (four) Medical times Branch daily. albuterol 2020-08 Yes 2{puff} Inhale 2 U nivers (VENTOLIN 1-17 Puffs ity of HFA) 90 09:14: every 6 [place] mcg/actuati 40 (six) Medical on inhaler hours as Branc h needed for Wheezing or Shortness of Breath. methylPREDN 2020-08 Yes [id number] Follow Univers ISolone 4 1-17 package ity of mg tablets 00:00: directions [address] Branch methocarbam 2020-08 Yes [id number] 500mg Take 1 Univers oL 500 mg 1-17 tablet by ity o f tablet 00:00: mouth 4 [place] 00 (four) Medical times Branch daily as needed (muscle pain or spasm). methylPREDN 2020-08 Yes [id number] Follow Univers ISolone 4 1-17 package ity of mg tablets 00:00: directions [address] Branch methocarbam 2020-08 Yes [id number] 500mg Take 1 Univers oL 500 mg 1-17 tablet by ity o f tablet 00:00: mouth 4 [place] 00 (four) Medical times Branch daily as needed (muscle pain or spasm). methylPREDN 2020-08 Yes [id number] Follow Univers ISolone 4 1-17 package ity of mg tablets 00:00: directions T ex [facility] Branch methocarbam 2020-08 Yes [id number] 500mg Take 1 Univers oL 500 mg 1-17 tablet by ity o f tablet 00:00: mouth 4 [place] [address] (four) Medical times Branch daily as needed (muscle pain or spasm). methocarbam 2020-08- No 500mg Take 500 Univers ol 1-17 06-24 mg by ity of (ROBAXIN) 00:00: 00:00 mouth as Ghul[place] as 500 mg 00 :00 [facility]- No 500mg Take 500 Univers ol 1-17 06-24 mg by ity of (ROBAXIN) 00:00: 00:00 mouth as [place] as 500 mg 00 :00 needed. MD newby [facility] amLODIPine Yes 5mg Take 5 mg Un mannie 5 mg tablet 9-30 by mouth ity of 00:00: daily. [place] [facility] amLODIPine Yes 5mg Take 5 mg Un mannie 5 mg tablet 9-30 by mouth ity of 00:00: daily. [place] [facility] amLODIPine Yes 5mg Take 5 mg Un mannie 5 mg tablet 9-30 by mouth ity of 00:00: daily. [place] [facility] ascorbic 2021- No 1{tbl} Take 1 Univ ers acid 8--26 tablet by ity of (VITAMIN C) 00:00: 00:00 [place] 500 mg 00 :00 daily. MD newby [facility] ascorbic 2020-2021- No 1{tbl} Take 1 Univ ers acid 8- 04-26 tablet by ity of (VITAMIN C) 00:00: 00:00 [place] 500 mg 00 :00 daily. MD newby [facility] metoprolol Yes 25mg Take 1 Unive rs tartrate 25 1-18 tablet by ity of mg tablet 00:00: mouth 2 [place] (two) Medical times Branch daily. metoprolol 2019-0 Yes 25mg Take 1 Unive rs tartrate 25 1-18 tablet by ity of mg tablet 00:00: mouth 2 00 (two) Medical times Branch daily. metoprolol Yes 25mg Take 1 Unive rs tartrate 25 1-18 tablet by ity of mg tablet 00:00: mouth 2 00 (two) Medical times Branch daily. atorvastati 2020- No 40mg Take 1 Uni vers n 40 mg 9- 11-17 tablet by ity of tablet 00:00: [...] 14:52: mouth Medic al tablet 06 daily. Center folic acid 2016-08 Yes 1mg QD Take [address] (FOLVITE) 1 2-04 by mouth Luke s MG tablet 14:52: daily. Medica l 06 Center albuterol 2016-08 Yes 1{puff} Inhale [address] HFA 2-04 puff by [facility] (VENTOLIN 14:52: mouth via Med ical HFA) 90 06 inhaler Center mcg/actuati every 6 on inhaler (six) hours as needed for Wheezing. thiamine 2016-08 Yes 100mg QD Take [address] (VITAMIN 2-04 mg by [facility] B-1) 100 MG 14:52: mouth Medic al tablet 06 daily. [place] folic acid 2016-08 Yes 1mg QD Take [address] (FOLVITE) 1 2-04 by mouth Luke s MG tablet 14:52: daily. Medica l 06 [place] acetamino 2016-08 Yes 1{tbl} Take [address] en-codeine 2-04 tablet by Luke s (TYLENOL 00:00: mouth Medical #3) 300-30 00 every 6 Center mg per (six) tablet hours as needed for Pain. Max Daily Amount: 4 tablets gabapentin 2016-08 Yes 400mg Q.[id number] Take 0.[address] (NEURONTIN) 2-04 [id number] tablets [facility] 800 MG 00:00: 3D (400 mg Medical tablet 00 total) by Center mouth 3 (three) times daily. metoprolol 2016-08 Yes 25mg Q.5D Take 1 [facility] (LOPRESSOR) 2-04 tablet (25 Tammy kes 25 MG 00:00: mg total) Medical tablet 00 by mouth 2 Center (two) times daily. gabapentin 2016-08 Yes 800mg Take 1 Univ ers (NEURONTIN) 2-04 tablet ity of 800 mg 00:00: (800 mg) [place] tablet 00 by mouth 4 (four) Radha times a n day. Cancer Center metoprolol 2016-08 Yes 25mg Take 25 mg U nivers tartrate 2-04 by mouth ity of (LOPRESSOR) 00:00: twice [place] 25 mg 00 daily. tablet Radha n Cancer [facility] 2016-08 Yes 1{tbl} Take [address] en-codeine 2-04 tablet by Luke s (TYLENOL 00:00: mouth Medical #3) 300-30 00 every 6 Center mg per (six) tablet hours as needed for Pain. Max Daily Amount: 4 tablets gabapentin 2016-08 Yes 400mg Q.[id number] Take 0.[address] (NEURONTIN) 2-04 [id number] tablets [facility] 800 MG 00:00: 3D (400 mg Medical tablet 00 total) by Center mouth 3 (three) times daily. metoprolol 2016-08 Yes 25mg Q.5D Take 1 [facility] (LOPRESSOR) 2-04 tablet (25 Tammy kes 25 MG 00:00: mg total) Medical tablet 00 by mouth 2 Center (two) times daily. gabapentin 2016-08 Yes 800mg Take 800 Un mannie (NEURONTIN) 2-04 mg by ity of 800 mg 00:00: mouth 4 [place] tablet 00 (four) MD times a Radha hernandez. n [facility] metoprolol 2016-08 Yes 25mg Take 25 mg U nivers tartrate 2-04 by mouth ity of (LOPRESSOR) 00:00: twice [place] 25 mg 00 daily. tablet Radha casey [facility] Immunizations Ordered Filled Immunization Date Status Comments [facility] Immunization Name Name SARS-COV-2 COVID-19 2020-11-15 Completed Unive rsity of PFIZER VACCINE 00:00:00 [facility] SARS-COV-2 COVID-19 2020-11-15 Completed Unive rsity of PFIZER VACCINE 00:00:00 [facility] SARS-COV-2 COVID-19 2020-11-15 Completed Unive rsity of PFIZER VACCINE 00:00:00 [facility] SARS-COV-2 COVID-19 2020-10-25 Completed Unive rsity of PFIZER VACCINE 00:00:00 [facility] SARS-COV-2 COVID-19 2020-10-25 Completed Unive rsity of PFIZER VACCINE 00:00:00 [facility] SARS-COV-2 COVID-19 2020-10-25 Completed Unive rsity of PFIZER VACCINE 00:00:00 [facility] Vital Signs Vital Name Observation Time Observation Value Comments Source Systolic blood 2021-07-15 15:13:00 122 mm[Hg] Univer sity of pressure [facility] Diastolic blood 2021-07-15 15:13:00 56 mm[Hg] Unive rsity of pressure [facility] Heart rate 2021-07-15 15:13:00 71 /min [facility] Body height 2021-07-15 15:13:00 165.1 cm [facility] Body weight 2021-07-15 15:13:00 55.792 kg [facility] BMI 2021-07-15 15:13:00 20.47 kg/m2 [facility] Oxygen saturation in 2021-07-15 15:13:00 97 /min [facility] Arterial blood by [facility] Pulse oximetry Branch Systolic blood 2022-08-04 18:46:26 125 mm[Hg] Univer sity of pressure [facility] Diastolic blood 2022-08-04 18:46:26 75 mm[Hg] Unive rsity of pressure [facility] Heart rate 2022-08-04 18:46:26 81 /min Universi ty of [facility] Body temperature 2022-08-04 18:46:26 36.89 [place] Univ ersity of [facility] Respiratory rate 2022-08-04 18:46:26 18 /min Univ ersity of [facility] Oxygen saturation in 2022-08-04 18:46:26 98 /min University of Arterial blood by [facility] Pulse oximetry [facility] Body weight 2022-08-04 17:11:00 49.4 kg Universi ty of [facility] BMI 2022-08-04 17:11:00 20.04 kg/m2 [facility]i ty of [facility] Body height 2022-03-17 22:27:43 157 cm Universi ty of [facility] Systolic blood 2022-03-17 22:27:43 122 mm[Hg] Univer [...] saturation in 2022-03-17 22:27:43 97 /min University of Arterial blood by [facility] Pulse oximetry [facility] Procedures Procedure Date / Time Performing Clinician Source Performed CT CHEST ABDOMEN PELVIS W 2022-08-04 15:16:00 Aaron Davis [facility] CONTRAST [facility] POC CREATININE 2022-08-04 14:17:00 Aaron Davis y [facility] COMPLETE BLOOD COUNT W/ 2022-08-04 14:16:00 Aaron Davis [facility] DIFFERENTIAL [facility] COMPREHENSIVE METABOLIC 2022-08-04 14:16:00 Aaron Davis [facility] PANEL [facility] PHOSPHORUS LEVEL 2022-08-04 14:16:00 [facility] 2022-08-04 14:16:00 Aaron Davis [facility] TOTAL T3 2022-08-04 14:16:00 Aaron Davis y [facility] FREE THYROXINE 2022-08-04 14:16:00 Aaron Davis y [facility] THYROID STIMULATING 2022-08-04 14:16:00 Aaron Davis [facility] HORMONE [facility] Results CBC 2022-08-04 14:16:00 Aaron Davis y [facility] MANUAL DIFFERENTIAL 2022-08-04 14:16:00 Aaron Davis [facility] GLUCOSE LEVEL 2022-08-04 14:16:00 Aaron Davis y [facility] BLOOD UREA NITROGEN 2022-08-04 14:16:00 Aaron Davis rsserena [facility] ELECTROLYTE PANEL 2022-08-04 14:16[facility]00 [facility]AT[facility]INE 2022-08-04 14:16:00 Aaron Davis ty [facility] .GLOMERULAR FILTRATION 2022-08-04 14:16:00 [facility] CALCIUM LEVEL TOTAL 2022-08-04 14:16:[address] [facility] rsFormerly [facility] ALBUMIN LEVEL 2022-08-04 14:16:00 Aaron Davis [facility] ALKALINE PHOSPHATASE 2022-08-04 14:16:00 Aaron Davis [facility] ALANINE AMINOTRANSFERASE 2022-08-04 14:16:00 Aaron Davis [facility] ASPARTATE AMINOTRANSFERASE 2022-08-04 14:16:00 Aaron Davis [facility] TOTAL PROTEIN 2022-08-04 14:16:00 Aaron Davis [facility] FRACTIONATED BILIRUBIN 2022-08-04 14:16:00 [facility] 2022 20:42:00 Ruth Lim [facility] [id number] [facility] CT CHEST W CONTRAST 2022 20:10:52 Emily Espino [facility] POC CREATININE 2022 18:12:00 Emily Espino [facility] US TRANSVAGINAL 2022-07-07 20:13:15 Aaron Davis [facility] COMPLETE BLOOD COUNT W/ 2022-07-07 19:01:00 [facility] COMPREHENSIVE METABOLIC 2022-07-07 19:01:00 [facility] PAN[facility] PHOSPHORUS LEVEL 2022-07-07 19:01:00 Aaron Davis [facility] MAGNESIUM LEVEL 2022-07-07 19:01:00 Aaron Davis [facility] TOTAL T3 2022-07-07 19:01:00 Aaron Davis [facility] FREE THYROXINE 2022-07-07 19:01:00 Aaron Davis [facility] THYROID STIMULATING 2022-07-07 19:01:00 Aaron Davis [facility] HORMONE [facility] Results CBC 2022-07-07 19:01:00 Aaron Davis [facility] MANUAL DIFFERENTIAL 2022-07-07 19:01:00 [facility] GLU[facility]SE [facility] 2022-07-07 19:01:00 Aaron Davis [facility] BLOOD UREA NITROGEN 2022-07-07 19:01:00 [facility] ELECTR[facility] 2022-07-07 19:01:00 Aaron Davis [facility] SERUM CREATININE 2022-07-07 19:01:00 Aaron Davis [facility] .GLOMERULAR FILTRATION 2022-07-07 19:01:00 Aaron [facility] RATE [facility] CALCIUM LEVEL TOTAL 2022-07-07 19:01:00 [facility] ALBUMIN L[facility] 2022-07-07 19:01:00 Aaron Davis [facility] ALKALINE PHOSPHATASE 2022-07-07 19:01:[address] [facility] ALANINE AMINOTRANSFERASE 2022-07-07 19:01:00 Aaron Davis [facility] ASPARTATE AMINOTRANSFERASE 2022-07-07 19:01:00 Aaron Davis [facility] TOTAL PROTEIN 2022-07-07 19:01:00 Aaron Davis [facility] FRACTIONATED BILIRUBIN 2022-07-07 19:01:00 Aaron Davis Un iversity of [facility] CT CHEST ABDOMEN PELVIS W 2022-06-09 01:49:17 Aaron Davis [facility] CONTRAST [facility] COMPLETE BLOOD COUNT W/ 2022-06-08 22:32:00 Aaron Davis of [place] DIFFERENTIAL [facility] COMPREHENSIVE METABOLIC 2022-06-08 22:32:00 Aaron Davis U niversserena of [place] PANEL [facility] PHOSPHORUS LEVEL 2022-06-08 22:32:00 Aaron Davis Universi ty of [facility] MAGNESIUM LEVEL 2022-06-08 22:32:00 Aaron Davis Universit y of [facility] TOTAL T3 2022-06-08 22:32:00 Aaron Davis y of [facility] FREE THYROXINE 2022-06-08 22:32:00 Aaron Davis Universit y of [facility] THYROID STIMULATING 2022-06-08 22:32:00 Aaron Davis rsity of [place] HORMONE [facility] Results CBC 2022-06-08 22:32:00 Aaron Davis Universit y of [facility] MANUAL DIFFERENTIAL 2022-06-08 22:32:00 Aaron Davis rsity of [facility] GLUCOSE LEVEL 2022-06-08 22:32:00 Aaron Davis Universit y of [facility] BLOOD UREA NITROGEN 2022-06-08 22:32:00 Aaron Davis rsity of [facility] ELECTROLYTE PANEL 2022-06-08 22:32:00 Aaron Davis Univers ity of [facility] SERUM CREATININE 2022-06-08 22:32:00 Aaron Davis Universi ty of [facility] .GLOMERULAR FILTRATION 2022-06-08 22:32:00 Aaron Davis [facility] RATE [facility] CALCIUM LEVEL TOTAL 2022-06-08 22:32:00 Aaron Davis [facility] ALBUMIN LEVEL 2022-06-08 22:32:00 Aaron Davis [facility] ALKALINE PHOSPHATASE 2022-06-08 22:32:00 Aaron Davis [facility] ALANINE AMINOTRANSFERASE 2022-06-08 22:32:00 Aaron Davis [facility] ASPARTATE AMINOTRANSFERASE 2022-06-08 22:32:00 Aaron Davis [facility] TOTAL PROTEIN 2022-06-08 22:32:00 Aaron Davis [facility] FRACTIONATED BILIRUBIN 2022-06-08 22:32:00 Aaron Davis Un iversFormerly [facility] COMPLETE BLOOD COUNT W/ 2022-05-12 15:43:00 Li Currie [facility] DIFFERENTIAL [facility] COMPREHENSIVE METABOLIC 2022-05-12 15:43:00 Li Currie [facility] PANEL [facility] Center PHOSPHORUS LEVEL 2022-05-12 15:43:00 Kush [facility] Center MAGNESIUM LEVEL 2022-05-12 15:43:00 Li Currie [facility] Center TOTAL T3 2022-05-12 15:43:00 Li Currie [facility] FREE THYROXINE 2022-05-12 15:43:00 Li Currie [facility] Center THYROID STIMULATING 2022-05-12 15:43:00 Li Currie [facility] HORMONE [facility] TROPONIN T 2022-05-12 15:43:00 Shelly [facility] C REACTIVE PROTEIN 2022-05-12 15:43:00 Shelly [facility] NT PRO BNP 2022-05-12 15:43:00 Ruth Lim [facility] CKMB 2022-05-12 15:43:00 Ruth Lim [facility] RESEARCH PROTOCOL [id number] 2022-05-12 15:43:00 Aaron Davis [facility] Results CBC 2022-05-12 15:43:00 Kush Li [facility] MANUAL DIFFERENTIAL 2022-05-12 15:43:00 Kush [facility] GLUCOSE LEVEL 2022-05-12 15:43:00 Kush [facility] BLOOD UREA NITROGEN 2022-05-12 15:43:00 Kush [facility] ELECTROLYTE PANEL 2022-05-12 15:43:00 Kush [facility] SERUM CREATININE 2022-05-12 15:43:00 Kush [facility] .GLOMERULAR FILTRATION 2022-05-12 15:43:00 Li Currie [facility] CALCIUM LEVEL TOTAL 2022-05-12 15:43:00 Li Currie [facility] ALBUMIN LEVEL 2022-05-12 15:43:00 Li Currie [facility] ALKALINE PHOSPHATASE 2022-05-12 15:43:00 Li Currie [facility] ALANINE AMINOTRANSFERASE 2022-05-12 15:43:00 Li Currie [facility] ASPARTATE AMINOTRANSFERASE 2022-05-12 15:43:00 [facility] TOTAL PROTEIN 2022-05-12 15:43:00 [facility] [facility] FRACTIONATED BILIRUBIN 2022-05-12 15:43:00 Li Currie [facility] RENAL 2022-04-21 15:25:26 Aaron Davis [facility] TRANSFUSE RED BLOOD CELLS 2022-04-14 22:20:00 Aaron Davis [facility] TYPE AND SCREEN 2022-04-14 16:50:00 Aaron Davis [facility] URINALYSIS WITH 2022-04-14 16:50:00 Aaron Davis [facility] MICROSCOPIC IF INDICATED MD Jimenez [facility] ABORH 2022-04-14 16:50:00 Aaron Davis [facility] ANTIBODY SCREEN 2022-04-14 16:50:00 Aaron Davis [facility] URINALYSIS MICROSCOPIC 2022-04-14 16:50:00 Aaron Davis Un iversity [facility] TMP INTERPRETATION 2022-04-14 16:50:00 Aaron [facility] ANTIBODY SCREEN NEGATIVE MD Jimenez [facility] CLOT EXPIRATION DATE 2022-04-14 16:50:00 Aaron Davis [facility] TMP CROSSMATCH 2022-04-14 16:50:00 Aaron Davis [facility] INTERPRETATION [facility] CONFIRM ABORH TYPE 2022-04-14 16:41:[address] [facility] [place] [place] PREPARE RBC 2022-04-14 15:56:00 Aaron Davis [facility] PRBC PRODUCT READY FOR 2022-04-14 15:56:00 Aaron [facility] DIRECTOR INDUSTRIAL MUSEUM [facility] COMPLETE BLOOD COUNT W/ 2022-04-14 14:01:00 Li Currie [facility] DIFFERENTIAL [facility] COMPREHENSIVE METABOLIC 2022-04-14 14:01:00 Li Currie [facility] PANEL [facility] PHOSPHORUS LEVEL 2022-04-14 14:01:00 [facility] L[facility] 2022-04-14 14:01:00 [facility] TOTAL T3 2022-04-14 14:01:00 Li Currie [facility] FREE THYROXINE 2022-04-14 14:01:00 Kush [facility] THYROID STIMULATING 2022-04-14 14:01:00 Kush [facility] HORMONE [facility] RESEARCH PROTOCOL 2022-04-14 14:01:00 Ruth Lim [facility] [id number] [facility] Results CBC 2022-04-14 14:01:00 Li Currie [facility] MANUAL DIFFERENTIAL 2022-04-14 14:01:00 Kush [facility] GLUCOSE LEVEL 2022-04-14 14:01:00 Li Currie [facility] BLOOD UREA NITROGEN 2022-04-14 14:01:00 Kush [facility] ELECTROLYTE PANEL 2022-04-14 14:01:00 Kush [facility] SERUM CREATININE 2022-04-14 14:01:00 Kush [facility] .GLOMERULAR FILTRATION 2022-04-14 14:01:00 Li Currie [facility] RATE [facility] CALCIUM LEVEL TOTAL 2022-04-14 14:01:00 Li Currie [facility] ALBUMIN LEVEL 2022-04-14 14:01:00 Li Currie [facility] ALKALINE PHOSPHATASE 2022-04-14 14:01:00 Li Currie [facility] ALANINE AMINOTRANSFERASE 2022-04-14 14:01:00 Li Currie [facility] ASPARTATE AMINOTRANSFERASE 2022-04-14 14:01:00 Li [facility] TOTAL PROTEIN 2022-04-14 14:01:00 KushLi duncan [facility] FRACTIONATED BILIRUBIN 2022-04-14 14:01:00 Li Currie [facility] CHEST ABDOMEN W 2022-04-14 13:03:19 Sathya [facility] CONTRAST [facility] POC CREATININE 2022-04-14 11:44:00 Sathya [facility] COMPLETE BLOOD COUNT W/ 2022-03-17 19:04:00 Sathya [facility] DIFFERENTIAL [facility] ELECTROLYTE PANEL 2022-03-17 19:04:00 [facility] MAGNESIUM LEVEL 2022-03-17 19:04:00 Sathya [facility] BLOOD UREA NITROGEN 2022-03-17 19:04:00 Sathya [facility] SERUM CREATININE 2022-03-17 19:04:00 [facility] GLUCOSE, RANDOM 2022-03-17 19:04:00 [facility] Results CBC 2022-03-17 19:04:00 [facility] MANUAL DIFFERENTIAL 2022-03-17 19:04:00 [facility] SERUM CREATININE 2022-03-17 19:04:00 [facility] .GLOMERULAR FILTRATION 2022-03-17 19:04:00 Sathya Warren [facility] RESEARCH PROTOCOL 2022-03-12 17:41:00 Ruth Lim [facility] [id number] [facility] SERUM CREATININE 2022-03-10 14:52:00 Yoana Palacios [facility] .GLOMERULAR FILTRATION 2022-03-10 14:52:00 Yoana Palacios [facility] ELECTROLYTE PANEL 2022-03-10 14:52:00 [facility] MAGNESIUM LEVEL 2022-03-10 14:52:00 Phliip [facility] BLOOD UREA NITROGEN 2022-03-10 14:52:00 Yoana Palacios [facility] SERUM CREATININE 2022-03-10 14:52:00 [facility] GLUCOSE, RANDOM 2022-03-10 14:52:00 Philip [facility] COMPLETE BLOOD COUNT W/ 2022-03-10 14:34:00 [facility] DIFFERENTIAL [facility] Results CBC 2022-03-10 14:34:00 Philip Yoana [facility] MANUAL DIFFERENTIAL 2022-03-10 14:34:00 Yoana Palacios [facility] COMPLETE BLOOD COUNT W/ 2022-03-03 19:48:00 Yoana Palacios [facility] DIFFERENTIAL [facility] ELECTROLYTE PANEL 2022-03-03 19:48:00 [facility] MAGNESIUM LEVEL 2022-03-03 19:48:00 Philip Yoana [facility] BLOOD UREA NITROGEN 2022-03-03 19:48:00 Yoana Palacios [facility] SERUM CREATININE 2022-03-03 19:48:00 [facility] GLUCOSE, RANDOM 2022-03-03 19:48:00 [facility] Results CBC 2022-03-03 19:48:00 [facility] MANUAL DIFFERENTIAL 2022-03-03 19:48:00 Yoana Palacios [facility] SERUM CREATININE 2022-03-03 19:48:00 Philip [facility] .GLOMERULAR FILTRATION 2022-03-03 19:48:00 Yoana Palacios [facility] COMPLETE BLOOD COUNT W/ 2022-02-24 14:25:00 Yoana Palacios [facility] DIFFERENTIAL [facility] ELECTROLYTE PANEL 2022-02-24 14:25:00 [facility] MAGNESIUM LEVEL 2022-02-24 14:25:00 Philip Yoana [facility] BLOOD UREA NITROGEN 2022-02-24 14:25:00 [facility] CREATININE 2022-02-24 14:25:00 Philip [facility] GLUCOSE, RANDOM 2022-02-24 14:25:00 [facility] RESEARCH PROTOCOL 2022-02-24 14:25:00 Shelly [facility] [id number] [facility] TROPONIN T 2022-02-24 14:25:00 [facility] Results CBC 2022-02-24 14:25:00 [facility] MANUAL DIFFERENTIAL 2022-02-24 14:25:00 Philip Yoana [facility] SERUM CREATININE 2022-02-24 14:25:00 [facility] .GLOMERULAR FILTRATION 2022-02-24 14:25:00 Yoana Palacios [facility] COMPLETE BLOOD COUNT W/ 2022-02-17 15:29:00 Yoana Palacios [facility] DIFFERENTIAL [facility] ELECTROLYTE PANEL 2022-02-17 15:29:00 Philip [facility] MAGNESIUM LEVEL 2022-02-17 15:29:00 [facility] BLOOD UREA NITROGEN 2022-02-17 15:29:00 Yoana Palacios [facility] SERUM CREATININE 2022-02-17 15:29:00 [facility] GLUCOSE, RANDOM 2022-02-17 15:29:00 Philip [facility] Results CBC 2022-02-17 15:29:00 Philip [facility] MANUAL DIFFERENTIAL 2022-02-17 15:29:00 Philip Yoana [facility] SERUM CREATININE 2022-02-17 15:29:00 Philip [facility] .GLOMERULAR FILTRATION 2022-02-17 15:29:00 Philip Yoana [facility] RATE [facility] URINE CULTURE 2022-02-12 17:26:00 Maria L [facility] URINALYSIS WITH 2022-02-12 17:26:00 Maria L [facility] MICROSCOPIC IF INDICATED MD Jimenez [facility] URINALYSIS MICROSCOPIC 2022-02-12 17:26:00 Maria L [facility] POC GLUCOSE SCREEN 2022-02-12 16:22:00 Maria L [facility] POC VENOUS BLOOD GAS + 2022-02-12 16:00:00 Maria L [facility] LACTATE [facility] BLOODCULTURE 2022-02-12 15:52:00 Maria L [facility] COVID-19 (SARS-COV-2) 2022-02-12 15:52:00 Maria L [facility] sity [facility] ASYMPTOMATIC-LT [facility] AMMONIA LEVEL 2022-02-12 15:52:00 Maria L [facility] COMPLETE BLOOD COUNT W/ 2022-02-12 15:52:00 Maria L [facility] DIFFERENTIAL [facility] COMPREHENSIVE METABOLIC 2022-02-12 15:52:00 Maria L [facility] PANEL [facility] MAGNESIUM LEVEL 2022-02-12 15:52:00 Maria L [facility] PHOSPHORUS LEVEL 2022-02-12 15:52:00 Maria L [facility] PROTHROMBIN TIME 2022-02-12 15:52:00 Maria L [facility] APTT 2022-02-12 15:52:00 Maria L [facility] LACTATE DEHYDROGENASE 2022-02-12 15:52:00 Maria L [facility] Results CBC 2022-02-12 15:52:00 Maria L [facility] MANUAL DIFFERENTIAL 2022-02-12 15:52:00 Maria L [facility] GLUCOSE LEVEL 2022-02-12 15:52:00 Maria L [facility] BLOOD UREA NITROGEN 2022-02-12 15:52:00 Maria L [facility] ELECTROLYTE PANEL 2022-02-12 15:52:00 Maria L [facility] SERUM CREATININE 2022-02-12 15:52:00 Maria L [facility] .GLOMERULAR FILTRATION 2022-02-12 15:52:00 Maria L [facility] CALCIUM LEVEL TOTAL 2022-02-12 15:52:00 Maria L [facility] ALBUMIN LEVEL 2022-02-12 15:52:00 Maria L [facility] ALKALINE PHOSPHATASE 2022-02-12 15:52:00 Maria L [facility] ALANINE AMINOTRANSFERASE 2022-02-12 15:52:00 Maria L [facility] ASPARTATE AMINOTRANSFERASE 2022-02-12 15:52:00 [facility] TOTAL PROTEIN 2022-02-12 15:52:00 Maria L [facility] FRACTIONATED BILIRUBIN 2022-02-12 15:52:00 Juani Lisa [facility] HEAD WO CONTRAST 2022-02-12 15:42:19 Juani Lisa [facility] COMPLETE BLOOD COUNT W/ 2022-02-10 15:52:00 [facility] DIFFERENTIAL [facility] ELECTROLYTE PANEL 2022-02-10 15:52:00 [place] [facility] MAGNESIUM LEVEL 2022-02-10 15:52:00 [facility] BLOOD UREA NITROGEN 2022-02-10 15:52:00 Philip Yoana [facility] SERUM CREATININE 2022-02-10 15:52:00 Philip [facility] GLUCOSE, RANDOM 2022-02-10 15:52:00 [facility] Results CBC 2022-02-10 15:52:00 [facility] MANUAL DIFFERENTIAL 2022-02-10 15:52:00 Philip Yoana [facility] SERUM CREATININE 2022-02-10 15:52:00 [place] [facility] .GLOMERULAR FILTRATION 2022-02-10 15:52:00 Yoana Palacios [facility] RATE [facility] COMPLETE BLOOD COUNT W/ 2022-02-03 15:07:00 Sathya Warren [facility] DIFFERENTIAL [facility] ELECTROLYTE PANEL 2022-02-03 15:07:00 Sathya [facility] MAGNESIUM LEVEL 2022-02-03 15:07:[address] [facility] BLOOD UREA NITROGEN 2022-02-03 15:07:00 Sathya Warren [facility] SERUM CREATININE 2022-02-03 15:07:00 Sathya [facility] GLUCOSE, RANDOM 2022-02-03 15:07:00 Sathya [facility] Results CBC 2022-02-03 15:07:00 [facility] MANUAL DIFFERENTIAL 2022-02-03 15:07:00 [facility] SERUM CREATININE 2022-02-03 15:07:00 Sathya [facility] .GLOMERULAR FILTRATION 2022-02-03 15:07:00 Sathya Warren [facility] RATE [facility] TROPONIN T 2022-02-03 14:55:00 [facility] PETCT INITIAL TREATMENT 2022-01-29 16:45:36 Sathya [facility] STRATEGY [facility] COVID-19 (SARS-COV-2) 2022-01-28 16:00:00 Ruth Lim [facility] PCR-ASYMPTOMATIC [facility] NM MYOCARDIAL PERFUSION 2022-01-11 20:40:00 Ruth Lim [facility] SPECT (STRESS AND REST) MD Brandt monzon [facility] EKG-STRESS TEST 2022-01-11 00:00:00 Emily Espino [facility] ECHOCARDIOGRAM 2022-01-07 20:48:16 Shelly [facility] STRAIN/SPECKLE TRACKING MD Carlton [facility] COMPLETE BLOOD COUNT W/ 2022-01-06 15:58:00 Sathya [facility] DIFFERENTIAL [facility] ELECTROLYTE PANEL 2022-01-06 15:58:00 [facility] MAGNESIUM LEVEL 2022-01-06 15:58:00 [facility] BLOOD UREA NITROGEN 2022-01-06 15:58:00 Sath[facility] SERUM CREATININE 2022-01-06 15:58:00 [facility] GLUCOSE, RANDOM 2022-01-06 15:58:[address] [facility] BILIRUBIN TOTAL 2022-01-06 15:58:00 Arverne [facility] o f [facility] ALANINE AMINOTRANSFERASE 2022-01-06 15:58:00 Warren Cole Uni [facility] ASPARTATE AMINOTRANSFERASE 2022-01-06 15:58:00 Warren Cole [facility] RESEARCH PROTOCOL 2022-01-06 15:58:00 Shelly [facility] [id number] [facility] LIPID PANEL 2022-01-06 15:58:00 [facility] HEMOGLOBIN A1C 2022-01-06 15:58:00 Shel[facility] NT PRO BNP 2022-01-06 15:58:00 Shelly [facility] C REACTIVE PROTEIN 2022-01-06 15:58:00 Shelly [facility] TROPONIN T 2022-01-06 15:58:00 [facility] Results CBC 2022-01-06 15:58:00 [facility] SERUM CREATININE 2022-01-06 15:58:00 [facility] .GLOMERULAR FILTRATION 2022-01-06 15:58:00 Warren Cole [facility] RATE [facility] MANUAL DIFFERENTIAL 2022-01-06 15:58:00 Sathya Warren [facility] PETCT SUBSEQUENT TREATMENT 2021-12-23 21:54:26 Sascha Carpenter [facility] STRATEGY [facility] MD NGS BLOOD CONTROL 2021-12-23 18:13:00 [facility] AP FISH ALK MATERIAL 2021-12-23 17:30:53 [facility] REQUEST [facility] AP FISH MET MATERIAL 2021-12-23 17:30:53 [facility] REQUEST MD Sim [facility] AP FISH RET MATERIAL 2021-12-23 17:30:53 Sathya [facility] REQUEST MD Sim [facility] AP FISH ROS1 MATERIAL 2021-12-23 17:30:53 Sathya [facility] REQUEST MD Sim [facility] AP NTRK3 FUSION 2021-12-23 17:30:[address] [facility] y [facility] ANALYSIS MATERIAL REQUEST And [facility] AP EGFR MUTATION 2021-12-23 17:30:53 Sathya [facility] MATERIAL REQUEST [facility] AP EML4/ALK FUSION 2021-12-23 17:30:53 Sathya [facility] ANALYSIS MATERIAL REQUEST And [facility] AP KRAS MUTATION 2021-12-23 17:30:53 Sathya [facility] MATERIAL REQUEST MD Sim [facility] AP NTRK1 FUSION 2021-12-23 17:30:53 Sathya [facility] ANALYSIS MATERIAL REQUEST And [facility] AP NTRK2 FUSION 2021-12-23 17:30:53 Sathya [facility] ANALYSIS MATERIAL REQUEST And [facility] AP RET FUSION ANALYSIS 2021-12-23 17:30:53 Warren [facility] MD Sim [facility] AP ROS1 FUSION ANALYSIS 2021-12-23 17:30:53 Warren Cole [facility] MATERIAL REQUEST MD Sim [facility] MRI BRAIN W WO CONTRAST 2021-12-23 01:43:54 Baldemar Carpenter [facility] MD Sim [facility] CULTURE W/ SMEAR 2021-12-15 20:47:00 Baldemar Carpenter [facility] PATHOLOGY BIOPSY 2021-12-15 20:03:00 Chuy Srinivasan [facility] INTERPRETATION [facility] CYTOLOGY IMAGE-GUIDED FNA 2021-12-15 19:59:00 Chuy Srinivasan [facility] INTERPRETATION [facility] CYTOLOGY IMAGE-GUIDED FNA 2021-12-15 19:53:00 Chuy Srinivasan [facility] INTERPRETATION [facility] CYTOLOGY IMAGE-GUIDED FNA 2021-12-15 19:49:00 ZarinaChuy holliday [facility] INTERPRETATION [facility] CYTOLOGY IMAGE-GUIDED FNA 2021-12-15 19:47:00 ZarinaChuy holliday [facility] INTERPRETATION [facility] CYTOLOGY IMAGE-GUIDED FNA 2021-12-15 19:44:00 ZarinaChuy holliday [facility] INTERPRETATION [facility] CYTOLOGY IMAGE-GUIDED FNA 2021-12-15 19:39:00 ZarinaChuy holliday [facility] INTERPRETATION [facility] BRONCHOSCOPY WITH EBUS 3 2021-12-15 19:10:00 Chuy Srinivasan [facility] OR MORE NODES [facility] HP MDA JOSE MUTATION 2021-12-15 18:39:00 [facility] ANALYSIS PRECISION PANEL MD Jimenez [facility] Cancer REPORT Center HP SOLID TUMOR GENOMIC 2021-12-15 18:39:00 Sathya Warren [facility] [place] ASSAY FUSIONS 2018 [facility] C ancer INTERPRETATION AND REPORT Center HP CYTOGENETICS BLOOD 2021-12-15 17:39:00 [facility] COLLECTION [facility] HP CG ROS1 FISH 2021-12-15 17:39:00 [facility] INTERPRETATION AND REPORT [facility] HP CG MET FISH 2021-12-15 17:39:00 [facility] INTERPRETATION AND REPORT [facility] HP CG ALK FISH 2021-12-15 17:39:00 [facility] INTERPRETATION AND REPORT [facility] HP CG RET FISH 2021-12-15 17:39:00 [facility] INTERPRETATION AND REPORT [facility] SPIROMETRY W/O DILATORS, 2021-12-14 20:50:51 Rig[facility]to [facility] DLCO AND BODY [facility] PLETHSMOGRAPHIC LUNG Center VOLUMES 6 MINUTE WALK TEST 2021-12-14 20:16:[address] [facility] [place] COVID-19 (SARS-COV-2) 2021-12-14 12:25:00 ZarinaTerranceo Ruth Ann Un [facility] PCR ASYMPTOMATIC [facility] US LEG VENOUS DOPPLER LEFT 2021-12-11 21:51:12 Silver Cardoza [facility] EKG, 12-LEAD (SCHEDULED) 2021-12-11 00:00:00 Silver Cardoza Un iversFormerly [facility] CRYPTOCOCCAL ANTIGEN, 2021-12-08 22:50:00 Silver Card[facility] SERUM [facility] CRYPTOCOCCAL ANTIGEN, 2021-12-08 22:50:00 Silver Cardoza [facility] SERUM PATH REVIEW [facility] COMPREHENSIVE METABOLIC 2021-12-08 22:50:00 Silver Cardoza [facility] PANEL [facility] COMPLETE BLOOD COUNT W/ 2021-12-08 22:50:00 Silver Cardoza [facility] DIFFERENTIAL [facility] PROTHROMBIN TIME 2021-12-08 22:50:00 Silver Cardoza [facility] APTT 2021-12-08 22:50:00 Silver Cardoza [facility] HEPATITIS B SURFACE 2021-12-08 22:50:00 Silver Cardoza [facility] ANTIGEN, SERUM [facility] HEPATITIS B CORE ANTIBODY 2021-12-08 22:50:00 Silver Cardoza U niversFormerly [facility] HEPATITIS C VIRUS ANTIBODY 2021-12-08 22:50:00 Silver Cardoza [facility] THYROID STIMULATING 2021-12-08 22:50:00 Silver Cardoza [facility] HORMONE [facility] COCCIDIOIDES ANTIBODY 2021-12-08 22:50:00 Silver [facility] HISTOPLASMA ANTIBODY 2021-12-08 22:50:00 Silver Cardoza [facility] SCREEN, SERUM [facility] T-SPOT TUBERCULOSIS 2021-12-08 22:50:00 Silver Cardoza [facility] GLUCOSE LEVEL 2021-12-08 22:50:00 Silver Cardoza [facility] BLOOD UREA NITROGEN 2021-12-08 22:50:00 Silver Cardoza [facility] ELECTROLYTE PANEL 2021-12-08 22:50:00 Silver Cardoza [facility] SERUM CREATININE 2021-12-08 22:50:00 Silver Cardoza [facility] .GLOMERULAR FILTRATION 2021-12-08 22:50:00 Silver Cardoza [facility] CALCIUM LEVEL TOTAL 2021-12-08 22:50:00 Silver Cardoza [facility] ALBUMIN LEVEL 2021-12-08 22:50:00 Silver Cardoza [facility] ALKALINE PHOSPHATASE 2021-12-08 22:50:[address] [facility] [place] [place] ALANINE AMINOTRANSFERASE 2021-12-08 22:50:00 Silver [facility]za [facility] ASPARTATE AMINOTRANSFERASE 2021-12-08 22:50:00 Silver Cardoza [facility] TOTAL PROTEIN 2021-12-08 22:50:00 Silver Cardoza [facility] FRACTIONATED BILIRUBIN 2021-12-08 22:50:00 Silver Cardoza [facility] Results CBC 2021-12-08 22:50:00 Silver Cardoza [facility] MANUAL DIFFERENTIAL 2021-12-08 22:50:00 Silver Cardoza [facility] HEPATITIS B CORE TOTAL 2021-12-08 22:50:00 Silver Cardoza [facility] ANTIBODY [facility] HEPATITIS B SURFACE AG 2021-12-08 22:50:00 Silver Cardoza [facility] W/CONFIRM [facility] er Center TMP HCVAB INTERP 2021-12-08 22:50:00 Silver Cardoza [facility] er Center OSI INTERVENTIONAL 2021-11-24 19:13:00 Silver Cardoza [facility] er Center OSI CT CHEST 2021-11-23 19:12:00 Silver Cardoza [facility] er Center OSI CHEST 2021-11-22 19:12:00 Silver Cardoza [facility] Plan of Care Planned Activity Planned Date Details Comments Source Future Scheduled 2022-08-18 COVID-19 Vaccination [facility] Test 11:41:00 (3 - Pfizer risk MD [facility] series) [code = Center COVID-19 Vaccination (3 - Pfizer risk series)] Future Scheduled 2022-03-19 [facility] 09:43[facility]03 (3 - Pfizer risk MD [facility] Cancer series) [code = Center COVID-19 Vaccination (3 - Pfizer risk series)] Encounters Start End Encounter Admission Attending Care Care Encounter Source Date/Time Date/Time Type Type Clinicians Facility Department ID 2022-04-07 Outpatient Morillo, STLMLC [facility] [id number] Common 07:55:01 [facility] it [facility] 2022-03-24 Outpatient Morillo, STLMLC [facility] [id number] Common 07:59:01 [facility] it [facility] 2022-03-22 Outpatient Morillo, STLMLC [facility] [id number] Common 09:13:03 [facility] it [facility] 2021-11-27 Outpatient SUJIT FOSTER MDA [id number] 09:56:54 MAMIE casey 2022-08-18 2022-08-18 Outpatient CHIKA RIVERA MDA MDA [id number] 15:59:09 16:20:58 IVORY casey 2022-08-04 2022[facility]08-04 [facility]1 [id number] Univers 06:48:36 23:59:00 Encounter Aaron F 57640.1.1 i ty of 3.412.2.7 [place] .3.044467 MD Polo [facility] 2022-08-04 2022-08-04 Outpatient DAVIS, [facility] [place] [id number] [place] 06:48:36 23:59:00 AARON casey 2022-08-04 2022-08-04 [facility] Ryan, 1.2.840.1 [id number] Univers 06:48:08 23:59:00 Encounter Aaron Ruth Ann 69030.1.1 i ty of 3.412.2.7 [place] .3.810913 MD Duvall8 [facility] 2022-08-04 2022-08-04 Outpatient RYAN [facility] [id number] [place] 06:48:08 23:59:00 AARON casey 2022-08-04 2022-08-04 [facility] Aaron Davis 1.2.840.1 [id number] [facility] 13:30:00 14:11:49 Lillian Camara 05189.1.1 ity of 3.412.2.7 [place] .3.824805 MD Polo [facility] 2022-08-04 2022-08-04 Outpatient [facility] INSTIT[facility]EDAVIS, [facility] MDA [id number] 11:48:06 14:11:49 AARON casey 2022-08-04 2022-08-04 Follow-Up Davis .2.840.1 [id number] [facility] 12:00:00 12:00:00 Aaron Vallecillo 81908.1.1 ity of 3.412.2.7 [place] .3.519120 MD Duvall8 [facility] 2022-08-04 2022-08-04 Outpatient DAVIS, [facility] MDA [id number] 11:06:55 11:30:57 AARON casey 2022-08-04 2022-08-04 [facility] Davis, 1.2.840.1 [id number] Univers 00:00:00 00:00:00 Only Aaron Vallecillo 37612.1.1 ity of 3.412.2.7 [place] .3.007119 MD Polo [facility] 2022-08-04 2022-08-04 Travel 1.2.840.1 1.2.191.540 [id number] Univers 00:00:00 00:00:00 74831.1.1 350.1.13.41 ity of 3.412.2.7 [place]7.3.698 [place] .3.299207 084.8 MD Polo [facility] 2022-07-20 2022-07-20 [facility], 1.2.840.1 [id number] Univers 09:38:13 23:59:00 Encounter Ruth 66047.1.1 it y of 3.412.2.7 [place] .3.278111 MD Polo [facility] 2022-07-20 2022-07-20 Outpatient [facility], [facility] [id number] [place] 09:38:13 23:59:00 RUTH casey 2022-07-20 2022-07-20 Travel 1.2.840.1 1.2.745.389 [id number] Univers 00:00:00 00:00:00 42770.1.1 350.1.13.41 ity of 3.412.2.7 2.[place].7.3.698 [place] .3.260716 084.8 MD Polo [facility] 2022-07-20 2022-07-20 Orders Espino, 1.2.840.1 [id number] Univers 00:00:00 00:00:00 Only Emily 05317.1.1 ity of Melchori 3.412.2.7 [place] .3.882910 MD Polo [facility] 2022 2022 [facility], 1.2.840.1 [id number] Univers 14:26:26 23:59:00 Encounter Ruth 13624.1.1 it y of 3.412.2.7 [place] .3.252582 MD Duvall8 [facility] 2022 2022 Outpatient CHIKA LIM MDA [facility] [id number] [place] 14:26:26 23:59:00 RUTH Víctoryolanda casey 2022 2022 López Espino 1.2.840.1 [id number] Univers 12:30:00 13:55:00 Procedure Emily 32544.1.1 it y of [place] 3.412.2.7 [place] .3.714294 MD Duvall8 [facility] 2022 2022 Outpatient CHIKA ESPINO MDA [facility] [id number] 11:57:28 11:57:28 EMILY casey 2022 2022 Travel 1.2.840.1 1.2.049.483 [id number] [id number] Univers 00:00:00 00:00:00 73011.1.1 350.1.13.41 ity of 3.412.2.7 2.[place]7.3.698 [place] .3.398989 084.8 MD Polo [facility] 2022-07-13 2022-07-13 Orders Dalton, 1.2.840.1 [id number] Univers 00:00:00 00:00:00 Only Katerine Vallecillo 50434.1.1 it y of 3.412.2.7 [place] .3.731350 MD Polo [facility] 2022-07-07 2022-07-07 [facility] Ryan, 1.2.840.1 [id number] Univers 12:51:23 23:59:00 Encounter Aaron Vallecillo 87881.1.1 i ty of 3.412.2.7 [place] .3.551393 MD Polo [facility] 2022-07-07 2022-07-07 Outpatient CHIKA DAVIS MDA [facility] [id number] 12:51:23 23:59:00 AARON Víctoryolanda casey 2022-07-07 2022-07-07 Infusion Aaron Davis 1.2.840.1 [id number] [facility] 15:00:00 16:27:35 Gucci Kirkland 32666.1.1 ity of 3.412.2.7 [place] .3.085946 MD Polo [facility] 2022-07-07 2022-07-07 Outpatient CHIKA DAVIS [facility] [id number] 14:11:18 16:27:35 AARON casey 2022-07-07 2022-07-07 López Davis 1.2.840.1 [id number] [facility] 13:30:00 14:30:00 Procedure Aaron Vallecillo 47919.1.1 i ty of 3.412.2.7 [place] .3.857212 MD Polo [facility] 2022-07-07 2022-07-07 Outpatient CHIKA DAVIS [facility] [id number] 13:08:53 13:08:53 AARON casey 2022-07-07 2022-07-07 Orders Bony, 1.2.840.1 [id number] Univers 00:00:00 00:00:00 Only Henrietta Cordoba 36484.1.1 ity of 3.412.2.7 [place] .3.099747 MD Polo [facility] 2022-07-07 2022-07-07 Li Jean Baptiste 1.2.840.1 [id number] Univers 00:00:00 00:00:00 Only 03761.1.1 ity of 3.412.2.7 [place] .3.152786 MD Polo [facility] 2022-07-07 2022-07-07 Vitor Davis 1.2.840.1 [id number] Univers 00:00:00 00:00:00 Only Aaron Vallecillo 38251.1.1 ity of 3.412.2.7 [place] .3.322220 MD Polo [facility] 2022-07-07 2022-07-07 Travel 1.2.840.1 1.2.330.817 9115 [id number] Univers 00:00:00 00:00:00 26964.1.1 350.1.13.41 ity of 3.412.2.7 2.[place].7.3.698 [place] .3.707931 084.8 .8 [facility] 2022-06-30 2022-06-30 Outpatient CHIKA SABASJEWEL [facility] MDA [id number] 10:57:47 11:02:24 SILVER casey 2022-06-28 2022-06-28 Outpatient CHIKA PENNINGTONALSUJIT MDA [id number] 13:14:32 13:44:05 PARKER casey 2022-06-09 2022-06-09 Infusion Ryan 1.2.840.1 [id number] Ginette 11:30:00 13:00:03 Aaron Vallecillo 10595.1.1 ity of 3.412.2.7 [place] .3.549709 MD Duvall8 [facility] 2022-06-09 2022-06-09 Outpatient CHIKA DAVIS MDA MDA [id number] 10:38:59 13:00:03 AARON casey 2022-06-09 2022-06-09 Office Ryan, 1.2.840.1 [id number] [id number] Ginette 09:40:00 10:23:49 Visit Aaron Vallecillo 97509.1.1 ity of 3.412.2.7 [place] .3.221976 MD Duvall8 [facility] 2022-06-09 2022-06-09 Outpatient CHIKA DAVIS MDA MDA [id number] 09:29:55 10:23:49 AARON casey 2022-06-09 2022-06-09 Vitor Jolly 1.2.840.1 [id number] Univers 00:00:00 00:00:00 Only Freddie 75790.1.1 ity of 3.412.2.7 [place] .3.475809 MD Duvall8 [facility] 2022-06-09 2022-06-09 Travel 1.2.840.1 1.2.110.520 7120 [id number] Univers 00:00:00 00:00:00 76219.1.1 350.1.13.41 ity of 3.412.2.7 2.[place]7.3.698 [place] .3.753385 084.8 MD Polo [facility] 2022-06-08 2022-06-08 [facility], 1.2.840.1 [id number] [facility] 17:36:41 23:59:00 Encounter Aaron Vallecillo 04720.1.1 i ty of 3.412.2.7 [place] .3.812340 MD Duvall8 [facility] 2022-06-08 2022-06-08 Outpatient CHIKA DAVIS [facility] MDA [id number] [place] 17:36:41 23:59:00 AARON casey 2022-06-08 2022-06-08 [facility] 1.2.840.1 [id number] [facility] 17:25:33 17:35:00 Encounter Aaron Vallecillo 12237.1.1 i ty of 3.412.2.7 [place] .3.687243 MD Duvall8 [facility] 2022-06-08 2022-06-08 Outpatient CHIKA DAVIS [facility] MDA [id number] 17:25:33 17:35:00 AARON casey 2022-06-08 2022-06-08 Travel 1.2.840.1 1.2.696.962 [id number] [facility] 00:00:00 00:00:00 86757.1.1 350.1.13.41 ity of 3.412.2.7 2.[place].7.3.698 [place] .3.320139 084.8 MD Duvall8 [facility] 2022-05-18 2022-05-18 Outpatient CHIKA CARDOZA MDA MDA [id number] 10:41:00 11:42:25 SILVER casey 2022-05-12 2022-05-12 [facility] Li Currie 1.2.840.1 [id number] [facility] 11:23:03 23:59:00 Jovita Knight 34444.1.1 ity of 3.412.2.7 [place] .3.196028 MD Polo [facility] 2022-05-12 2022-05-12 Outpatient LI CURRIE [facility] [id number] [place] 11:23:03 23:59:00 [facility] 2022-05-12 2022-05-12 [facility] 1.2.840.1 [id number] [facility] 10:00:10 11:22:00 Yann 56365.1.1 it y of 3.412.2.7 [place] .3.696096 MD Duvall8 [facility] 2022-05-12 2022-05-12 [facility] LI CURRIE [facility] [id number] [place] 10:00:10 11:22:00 [facility] 2022-05-12 2022-05-12 [facility], 1.2.840.1 [id number] [facility] 09:18:20 09:59:00 Yann Charles 96674.1.1 it y of 3.412.2.7 [place] .3.047804 MD Duvall8 [facility] 2022-05-12 2022-05-12 [facility] [id number] [place] 09:18:20 09:59:00 RUTH casey 2022-05-12 2022-05-12 Documentat Magdiel, 1.2.840.1 [id number] [facility] 00:00:00 00:00:00 ion Pamela Cordoba 38544.1.1 ity of 3.412.2.7 [place] .3.935782 .8 [facility] 2022-05-12 2022-05-12 Vitor Davis 1.2.840.1 [id number] Ginette 00:00:00 00:00:00 Only Aaron Vallecillo 22128.1.1 ity of 3.412.2.7 [place] .3.049989 .8 [facility] 2022-05-12 2022-05-12 Orders Jorge, 1.2.840.1 [id number] Univers 00:00:00 00:00:00 Only Mei Ji 52378.1.1 ity of 3.412.2.7 [place] .3.071068 .8 [facility] 2022-05-12 2022-05-12 Orders Chavez, 1.2.840.1 [id number] Univers 00:00:00 00:00:00 Only Jihan 26259.1.1 ity of 3.412.2.7 [place] .3.461818 .8 [facility] 2022-05-12 2022-05-12 Travel 1.2.840.1 1.2.014.409 1035 [id number] Univers 00:00:00 00:00:00 23014.1.1 350.1.13.41 ity of 3.412.2.7 2.2.7.3.698 [place] .3.339861 084.8 .8 [facility] 2022-05-11 2022-05-11 Outpatient CHIKA CARDOZA MDA MDA [id number] 14:56:18 14:56:18 SILVER casey 2022-05-07 2022-05-07 Orders Sanket, 1.2.840.1 [id number] Univers 00:00:00 00:00:00 Only Venecia 69232.1.1 ity of 3.412.2.7 [place] .3.124025 MD Duvall8 [facility] 2022-05-04 2022-05-04 Outpatient JOSE A HALL MDA MDA [id number] 10:32:42 15:59:26 Víctor casey 2022-04-21 2022-04-21 Outpatient CHIKA CARDOZA MDA MDA [id number] 14:39:23 14:39:23 SILVER casey 2022-04-21 2022-04-21 Ancillary Ryan 1.2.840.1 [id number] [facility] 10:00:00 11:00:00 Procedure Aaron Vallecillo 48611.1.1 i ty of 3.412.2.7 [place] .3.906383 MD Polo [facility] 2022-04-21 2022-04-21 Outpatient CHIKA DAVIS [place] [id number] 10:01:10 10:01:10 AARON casey 2022-04-21 2022-04-21 Travel 1.2.840.1 1.2.219.500 [id number] [id number] [facility] 00:00:00 00:00:00 05694.1.1 350.1.13.41 ity of 3.412.2.7 2.2.7.3.698 [place] .3.804356 084.8 MD Polo [facility] 2022-04-19 2022-04-19 Vitor Veloz 1.2.840.1 [id number] [facility] 00:00:00 00:00:00 Only Pamela Cordoba 20228.1.1 ity of 3.412.2.7 [place] .3.747817 MD Polo [facility] 2022-04-14 2022-04-14 [facility] Li Currie 1.2.840.1 [id number] [facility] 11:54:51 23:59:00 Encounter Rubio Grigsby 51485.1.1 ity of 3.412.2.7 [place] .3.037796 MD Polo [facility] 2022-04-14 2022-04-14 Outpatient LI TRIPP [facility] [id number] [place] 11:54:51 23:59:00 Víctor casey 2022-04-14 2022-04-14 Office Li Currie 1.2.840.1 [id number] [facility] 12:20:00 12:20:00 Visit 54457.1.1 ity of 3.412.2.7 [place] .3.714061 MD Polo [facility] 2022-04-14 2022-04-14 [facility], 1.2.840.1 [id number] [facility] 11:33:55 11:53:00 Encounter Aaron Vallecillo 38987.1.1 i ty of 3.412.2.7 [place] .3.052361 .8 [facility] 2022-04-14 2022-04-14 Outpatient CHIKA DAVIS SUJIT BECKETT [id number] 11:33:55 11:53:00 AARON casey 2022-04-14 2022-04-14 [facility] 1.2.840.1 [id number] [facility] 11:00:00 11:32:00 Encounter Aaron Vallecillo 36942.1.1 i ty of 3.412.2.7 [place] .3.288228 .8 [facility] 2022-04-14 2022-04-14 Outpatient DAVISSUJIT MDA [id number] 11:00:00 11:32:00 AARON casey 2022-04-14 2022-04-14 Outpatient LI TRIPP MDA, MDA [id number] 10:18:59 11:15:53 Víctor casey 2022-04-14 2022-04-14 [facility] Li Currie 1.2.840.1 [id number] [facility] 08:45:20 10:59:00 Encounter 33622.1.1 it y of 3.412.2.7 [place] .3.011129 .8 [facility] 2022-04-14 2022-04-14 Outpatient KUSH LIMika BECKETT MDA [id number] 08:45:20 10:59:00 Víctor casey 2022-04-14 2022-04-14 López Cole 1.2.840.1 [id number] [facility] 06:00:00 08:25:00 Procedure Warren 00478.1.1 it y of 3.412.2.7 [place] .3.207216 .8 [facility] 2022-04-14 2022-04-14 Outpatient CHIKA COLE MDA MDA [id number] 06:06:12 06:06:12 WARREN duncan n 2022-04-14 2022-04-14 Documentat Novegil, 1.2.840.1 [id number] Univers 00:00:00 00:00:00 hemant Olvera 57832.1.1 i ty of 3.412.2.7 [place] .3.970962 MD Duvall8 [facility] 2022-04-14 2022-04-14 Travel 1.2.840.1 1.2.786.124 [id number] Univers 00:00:00 00:00:00 21579.1.1 350.1.13.41 ity of 3.412.2.7 2.[place]7.3.698 [place] .3.303737 084.8 MD Polo [facility] 2022-04-13 2022-04-13 Outpatient CHIKA CARDOZA, SUJIT [facility] [id number] 13:27:21 13:27:21 SLIVER Víctor [facility] 2022-04-06 2022-04-06 Vitor Tracy 1.2.840.1 [id number] Univers 00:00:00 00:00:00 Only Erlin, 57943.1.1 ity of Matthew 3.412.2.7 [place] .3.893365 MD Polo [facility] 2022-03-25 2022-03-25 Cheikh Cole, 1.2.840.1 [id number] Univers 00:00:00 00:00:00 Xin Hernandez 30869.1.1 i ty of 3.412.2.7 [place] .3.093073 MD Polo [facility] 2022-03-19 2022-03-19 Vitor Espino 1.2.840.1 [id number] Univers 00:00:00 00:00:00 Only Emily 69292.1.1 ity of [place]un[place] 3.412.2.7 [place] .3.143939 MD Polo [facility] 2022-03-19 2022-03-19 Vitor Espino 1.2.840.1 [id number] Univers 00:00:00 00:00:00 Only Emily 15713.1.1 ity of [place] 3.412.2.7 [place] .3.491971 MD Duvall8 [facility] [place] 2022-03-18 2022-03-18 Outpatient CHIKA SONYSUJIT [facility] [id number] MD 14:12:13 14:12:13 SILVER casey 2022-03-17 2022-03-17 [facility] 1.2.840.1 [id number] Univers 14:09:41 23:59:00 Encounter Kirstin [place] 42106.1.1 ity of 3.412.2.7 [place] .3.350111 MD Duvall8 [facility] 2022-03-17 2022-03-17 [facility] 1.2.840.1 [id number] Univers 14:09:41 23:59:00 Encounter Kirstin [place] 97403.1.1 ity of 3.412.2.7 [place] .3.439999 MD Duvall8 [facility] 2022-03-17 2022-03-17 [facility], 1.2.840.1 [id number] Univers 13:30:00 14:08:00 Encounter Warren 38756.1.1 it y of 3.412.2.7 [place] .3.690855 MD Duvall8 [facility] 2022-03-17 2022-03-17 [facility] 1.2.840.1 [id number] Univers 13:30:00 14:08:00 Encounter Warren 32517.1.1 it y of 3.412.2.7 [place] .3Jadiel388232 MD Duvall8 [facility] 2022-03-17 2022-03-17 [facility] 1.2.840.1 [id number] [facility] 12:50:00 13:29:00 Encounter Silver Pinon 62194.1.1 i ty of 3.412.2.7 [place] .3Jadiel288667 MD Duvall8 [facility] 2022-03-172022-03-17 [facility], 1.2.840.1 [id number] Univers 12:50:00 13:29:00 Encounter Silver Pinon 37877.1.1 i ty of 3.412.2.7 [place] .3.940523 MD Polo [facility] 2022-03-17 2022-03-17 Documentat O`Mars, 1.2.840.1 [id number] Univers 00:00:00 00:00:00 hemant Ruth 20140.1.1 ity of 3.412.2.7 [place] .3.057092 MD Polo [facility] 2022-03-17 2022-03-17 Travel 1.2.840.1 1.2.285.007 [id number] Univers 00:00:00 00:00:00 15348.1.1 350.1.13.41 ity of 3.412.2.7 2.2.7.3.698 [place] .3.144256 084Christ Polo [facility] 2022-03-17 2022-03-17 Documentat Rex`Mars, 1.2.840.1 [id number] Univers 00:00:00 00:00:00 hemant Charles 00426.1.1 ity of 3.412.2.7 [place] .3.199727 MD Polo [facility] 2022-03-17 2022-03-17 Travel 1.2.840.1 1.2.275.451 5149 [id number] Univers 00:00:00 00:00:00 42271.1.1 350.1.13.41 ity of 3.412.2.7 2.2.7.3.698 [place] .3.454947 084Jadiel8 MD Polo [facility] 2022-03-16 2022-03-16 [facility], 1.2.840.1 [id number] Univers 12:49:09 23:59:00 Encounter Silver Pinon 42442.1.1 i ty of 3.412.2.7 [place] .3.563219 MD Duvall8 [facility] 2022-03-16 2022-03-16 [facility], 1.2.840.1 [id number] Univers 12:49:09 23:59:00 Encounter Silver Plummer50.1.1 i ty of 3.412.2.7 [place] .3.926283 MD Dvuall8 [facility] 2022-03-16 2022-03-16 Travel 1.2.840.1 1.2.983.005 8449 [id number] Univers 00:00:00 00:00:00 00626.1.1 350.1.13.41 ity of 3.412.2.7 2.2.7.3.698 [place] .3.777939 084.8 MD Polo [facility] 2022-03-16 2022-03-16 Travel 1.2.840.1 1.2.421.688 2437 [id number] Univers 00:00:00 00:00:00 95207.1.1 350.1.13.41 ity of 3.412.2.7 2.2.7.3.698 [place] .3.099377 084.8 MD Polo [facility] 2022-03-15 2022-03-15 [facility] 1.2.840.1 [id number] Univers 15:22:37 23:59:00 Encounter Silver Pinon 93106.1.1 i ty of 3.412.2.7 [place] .3.008382 MD Polo [facility] 2022-03-15 2022-03-[address] [facility] 1.2.840.1 [id number] Univers 15:22:37 23:59:00 Encounter Silver Pinon 78111.1.1 i ty of 3.412.2.7 [place] .3.514151 MD Polo [facility] 2022-03-15 2022-03-15 [facility] Silver Cardoza. 1.2.840.1 [id number] Univers 10:30:00 10:58:42 Tresa Denis 85369.1.1 ity of 3.412.2.7 [place] .3.887877 MD Polo [facility] 2022-03-15 2022-03-15 [facility] Silver Mendez 1.2.840.1 [id number] Univers 10:30:00 10:58:42 Tresa Denis 83859.1.1 ity of 3.412.2.7 [place] .3.849839 MD Polo [facility] 2022-03-15 2022-03-15 Travel 1.2.840.1 1.2.260.993 9867 [id number] Univers 00:00:00 00:00:00 61948.1.1 350.1.13.41 ity of 3.412.2.7 2.2.7.3.698 [place] .3.449302 084.Sindy Polo [facility] 2022-03-15 2022-03-15 Travel 1.2.840.1 1.2.087.089 [id number] [id number] Univers 00:00:00 00:00:00 41477.1.1 350.1.13.41 ity of 3.412.2.7 2.[place].7.3.698 [place] .3.234266 08Lucas.Sindy Polo [facility] 2022-03-12 2022-03-12 [facility] 1.2.840.1 [id number] Univers 12:45:38 23:59:00 Encounter Silver Plummer50.1.1 i ty of 3.412.2.7 [place] .3.642365 MD Polo [facility] 2022-03-12 2022-03-12 [facility], 1.2.840.1 [id number] Univers 12:45:38 23:59:00 Encounter Silver Pinon 10733.1.1 i ty of 3.412.2.7 [place] .3.614417 MD Polo [facility] 2022-03-12 2022-03-12 [facility], 1.2.840.1 [id number] Univers 10:00:00 12:44:00 Encounter Ruth 73698.1.1 it y of 3.412.2.7 [place] .3.303776 MD Polo [facility] 2022-03-12 2022-03-12 [facility], 1.2.840.1 [id number] Univers 10:00:00 12:44:00 Encounter Ruth 85493.1.1 it y of 3.412.2.7 [place] .3.931505 MD Polo [facility] 2022-03-12 2022-03-12 Travel 1.2.840.1 1.2.881.727 [id number] Univers 00:00:00 00:00:00 44021.1.1 350.1.13.41 ity of 3.412.2.7 2.2.7.3.698 [place] .3.575877 084.Sindy Polo [facility] 2022-03-12 2022-03-12 Travel 1.2.840.1 1.2.388.687 [id number] Univers 00:00:00 00:00:00 41609.1.1 350.1.13.41 ity of 3.412.2.7 2.2.7.3.698 [place] .3.498379 084Christ Polo [facility] 2022-03-11 2022-03-11 [facility] 1.2.840.1 [id number] Univers 14:38:55 23:59:00 Encounter Silver Plummer50.1.1 i ty of 3.412.2.7 [place] .3.713833 MD Polo [facility] 2022-03-11 2022-03-[address] [facility] 1.2.840.1 [id number] Univers 14:38:55 23:59:00 Encounter Silver Plummer50.1.1 i ty of 3.412.2.7 [place] .3.107708 MD Polo [facility] 2022-03-11 2022-03-11 Travel 1.2.840.1 1.2.779.099 [id number] Univers 00:00:00 00:00:00 74564.1.1 350.1.13.41 ity of 3.412.2.7 2.2.7.3.698 [place] .3.432876 084.8 .8 [facility] 2022-03-11 2022-03-11 Travel 1.2.840.1 1.2.279.945 [id number] Univers 00:00:00 00:00:00 86325.1.1 350.1.13.41 ity of 3.412.2.7 [place]7.3.698 [place]3.9526[place] 084.8 MD Polo [facility] 2022-03-10 2022-03-10 [facility] 1.2.840.1 [id number] Univers 14:45:00 23:59:00 Encounter Silver Pinon 90748.1.1 i ty of 3.412.2.7 [place] .3.845184 MD Polo [facility] 2022-03-10 2022-03-[address] [facility] 1.2.840.1 [id number] Univers 14:45:00 23:59:00 Encounter Silver Pinon 98647.1.1 i ty of 3.412.2.7 [place] .3.388474 MD Polo [facility] 2022-03-10 2022-03-10 Infusion Yoana Palacios 1.2.840.1 [id number] Univers 11:15:00 15:01:33 Sue To 10654.1.1 ity of 3.412.2.7 [place] .3.617875 MD Polo [facility] 2022-03-10 2022-03-10 Infusion Yoana Ramachandran 1.2.840.1 [id number] 10 [id number] Univers 11:15:00 15:01:33 Sue To 39574.1.1 ity of 3.412.2.7 [place] .3.056606 MD Duvall8 [facility] [place] 2022-03-10 2022-03-10 [facility] Yoana Palacios 1.2.840.1 [id number] 10 [id number] Univers 09:15:00 14:44:00 Encounter 97027.1.1 it y of 3.412.2.7 [place] .3.241169 MD Duvall8 [facility] [place] 2022-03-10 2022-03-10 [facility] Yoana Palacios 1.2.840.1 [id number] 10 [id number] Univers 09:15:00 14:44:00 Encounter 90167.1.1 it y of 3.412.2.7 [place] .3Jadiel800237 MD Duvall8 [facility] 2022-03-10 2022-03-10 Office Li Currie 1.2.840.1 [id number] Univers 08:40:00 09:23:44 Visit 80835.1.1 ity of 3.412.2.7 [place] .3Jadiel572439 MD Duvall8 [facility] [place] 2022-03-10 2022-03-10 Office Li Tripp 1.2.840.1 [id number] Univers 08:40:00 09:23:44 Visit 66929.1.1 ity of 3.412.2.7 [place] .3Jadiel576447 MD Duvall8 [facility] [place] 2022-03-10 2022-03-10 Orders Li Currie 1.2.840.1 [id number] Univers 00:00:00 00:00:00 Only 16581.1.1 ity of 3.412.2.7 [place] .3Jadiel060485 MD Duvall8 [facility] [place] 2022-03-10 2022-03-10 Vitor Harmon 1.2.840.1 [id number] Univers 00:00:00 00:00:00 Only Niki 14362.1.1 it[place].2.7 [place] .3.7246[place] Duvall8 [facility] 2022-03-10 2022-03-10 Orders Faustino, 1.2.840.1 [id number] Univers 00:00:00 00:00:00 Only Niki 66718.1.1 [place].2.7 [place] .3.540886 [place] Duvall8 [facility] 2022-03-10 2022-03-10 Travel 1.2.840.1 1.2.997.034 7983 [id number] Univers 00:00:00 00:00:00 32986.1.1 350.1.13.41 ity of 3.412.2.7 2.2.7.3.698 [place] .3.971854 084.8 MD Duvall8 [facility] 2022-03-10 2022-03-10 Orders Li Currie 1.2.840.1 [id number] Univers 00:00:00 00:00:00 Only 37587.1.1 ity of 3.412.2.7 [place] .3.752273 MD Duvall8 [facility] 2022-03-10 2022-03-10 Orders Faustino, 1.2.840.1 [id number] Univers 00:00:00 00:00:00 Only Niki 82476.1.1 [place] 3.[place].2.7 [place] .3.180177 MD Duvall8 [facility] 2022-03-10 2022-03-10 Orders Faustino, 1.2.840.1 [id number] Univers 00:00:00 00:00:00 Only Niki 10690.1.1 [place]2.7 [place] .3.201268 [place] Duvall8 [facility] 2022-03-10 2022-03-10 Travel 1.2.840.1 1.2.425.934 0316 [id number] Univers 00:00:00 00:00:00 49854.1.1 350.1.13.41 ity of 3.412.2.7 2.2.7.3.698 [place] .3.460366 084.8 MD Polo [facility] 2022-03-09 2022-03-[address] [facility] [address] [facility], 1.2.840.1 [id number] [id number] Univers 09:28:45 23:59:00 Encounter Silver Pinon 00484.1.1 i ty of 3.412.2.7 [place] .3.134078 MD Polo [facility] 2022-03-09 2022-03-09 [facility], 1.2.840.1 [id number] Univers 09:28:45 23:59:00 Encounter Silver Plummer50.1.1 i ty of 3.412.2.7 [place] .3.075186 MD Polo [facility] 2022-03-09 2022-03-09 Outpatient CHIKA CARDOZA MDA MDA [id number] 14:30:39 14:30:39 SILVER casey 2022-03-09 2022-03-09 Nutrition Silver Cardoza 1.2.840.1 [id number] Univers 10:30:00 11:25:50 Tresa Denis 80194.1.1 ity of 3.412.2.7 [place] .3.130000 MD Polo [facility] 2022-03-09 2022-03-09 Nutrition Silver Mendez 1.2.840.1 [id number] [id number] Univers 10:30:00 11:25:50 Tresa Denis 28616.1.1 ity of 3.412.2.7 [place] .3Jadiel211503 MD Polo [facility] 2022-03-09 2022-03-09 [facility], 1.2.840.1 [id number] Univers 08:33:53 09:27:00 Encounter Ruth 40933.1.1 it y of 3.412.2.7 [place] .3Jadiel001715 MD Polo [facility] 2022-03-09 2022-03-09 [facility], 1.2.840.1 [id number] Univers 08:33:53 09:27:00 Encounter Ruth 25315.1.1 it y of 3.412.2.7 [place] .3.219684 MD Polo [facility] 2022-03-09 2022-03-09 Travel 1.2.840.1 1.2.196.620 0472 [id number] Univers 00:00:00 00:00:00 52450.1.1 350.1.13.41 ity of 3.412.2.7 2.2.7.3.698 [place] .3.788227 084.8 MD Polo [facility] 2022-03-09 2022-03-09 Travel 1.2.840.1 1.2.893.977 6379 [id number] Univers 00:00:00 00:00:00 14004.1.1 350.1.13.41 ity of 3.412.2.7 2.2.7.3.698 [place] .3.391332 084.8 MD Polo [facility] 2022-03-08 2022-03-08 [facility] 1.2.840.1 [id number] Univers 15:07:29 23:59:00 Encounter Silver Pinon 25558.1.1 i ty of 3.412.2.7 [place] .3.110134 MD Polo [facility] 2022-03-08 2022-03-08 [facility], 1.2.840.1 [id number] Univers 15:07:29 23:59:00 Encounter Silver Pinon 18965.1.1 i ty of 3.412.2.7 [place] .3.213916 MD Polo [facility] 2022-03-08 2022-03-08 Travel 1.2.840.1 1.2.212.165 2710 [id number] Univers 00:00:00 00:00:00 07396.1.1 350.1.13.41 ity of 3.412.2.7 2.2.7.3.698 [place] .3.556363 084.8 MD Polo [facility] 2022-03-08 2022-03-08 Travel 1.2.840.1 1.2.338.538 9026 [id number] Univers 00:00:00 00:00:00 51213.1.1 350.1.13.41 ity of 3.412.2.7 2.2.7.3.698 [place] .3.582094 084.8 MD Polo [facility] 2022-03-05 2022-03-05 [place] 34499.2.840.1 [id number] [id number] Univers 15:15:00 23:59:00 Encounter Silver Pinon 42099.1.1 i ty of 3.412.2.7 [place] .3.084673 MD Polo [facility] 2022-03-05 2022-03-05 [facility] 1.2.840.1 [id number] Univers 15:15:00 23:59:00 Encounter Silver Pinon 29869.1.1 i ty of 3.412.2.7 [place] .3.910742 MD Polo [facility] 2022-03-05 2022-03-05 [facility] SONY, [facility] [id number] 796 [place] 13:59:44 14:04:05 SILVER casey 2022-03-05 2022-03-05 Travel 1.2.840.1 1.2.107.216 4970 [id number] Univers 00:00:00 00:00:00 01280.1.1 350.1.13.41 ity of 3.412.2.7 2.2.7.3.698 [place] .3.234321 084.8 MD Polo [facility] 2022-03-05 2022-03-05 Travel 1.2.840.1 1.2.997.218 4261 [id number] Univers 00:00:00 00:00:00 63661.1.1 350.1.13.41 ity of 3.412.2.7 2.2.7.3.698 [place] .3.600735 084.8 MD Polo [facility] 2022-03-04 2022-03-04 [facility], 1.2.840.1 [id number] [id number] Univers 15:13:25 23:59:00 Encounter Silver Pinon 70484.1.1 i ty of 3.412.2.7 [place] .3.913419 MD Polo [facility] 2022-03-04 2022-03-04 [facility], 1.2.840.1 [id number] Univers 15:13:25 23:59:00 Encounter Silver Pinon 42368.1.1 i ty of 3.412.2.7 [place] .3.547784 MD Polo [facility] 2022-03-04 2022-03-04 Travel 1.2.840.1 1.2.330.290 7429 [id number] Univers 00:00:00 00:00:00 73467.1.1 350.1.13.41 ity of 3.412.2.7 2.2.7.3.698 [place] .3.722574 084.8 MD Polo [facility] 2022-03-04 2022-03-04 Travel 1.2.840.1 1.2.499.162 3695 [id number] Univers 00:00:00 00:00:00 07199.1.1 350.1.13.41 ity of 3.412.2.7 2.2.7.3.698 [place] .3.723668 084.8 MD Polo [facility] 2022-03-03 2022-03-03 [facility] Yoana Palacios 1.2.840.1 [id number] Univers 14:42:54 23:59:00 Encounter 83377.1.1 it y of 3.412.2.7 [place] .3.620920 MD Polo [facility] 2022-03-03 2022-03-03 [facility] Yoana Ramachandran 1.2.840.1 [id number] 10 [id number] Univers 14:42:54 23:59:00 Encounter 27433.1.1 it y of 3.412.2.7 [place] .3.417406 MD Polo [facility] 2022-03-03 2022-03-03 [facility] Yoana Palacios 1.2.840.1 [id number] 10 [id number] Univers 16:30:00 19:30:00 Aliya Calvo 70311.1.1 ity of 3.412.2.7 [place] .3.256670 MD Polo [facility] 2022-03-03 2022-03-03 [facility] Landy Palaciosi 1.2.840.1 [id number] [facility] 16:30:00 19:30:00 Ailya Calvo 91120.1.1 ity of 3.412.2.7 [place] .3.494164 MD Polo [facility] 2022-03-03 2022-03-03 [facility] 1.2.840.1 [id number] Univers 13:10:00 14:41:00 Encounter Silver Pinon 89389.1.1 i ty of 3.412.2.7 [place] .3.895436 MD Polo [facility] 2022-03-03 2022-03-[address] [facility] 1.2.840.1 [id number] Univers 13:10:00 14:41:00 Encounter Silver Pinon 91865.1.1 i ty of 3.412.2.7 [place] .3.881849 MD Polo [facility] 2022-03-03 2022-03-03 Travel 1.2.840.1 1.2.796.919 4910 [id number] Univers 00:00:00 00:00:00 58742.1.1 350.1.13.41 ity of 3.412.2.7 2.2.7.3.698 [place] .3.729504 084.8 MD Polo [facility] 2022-03-03 2022-03-03 Orders Demarcus 1.2.840.1 [id number] Univers 00:00:00 00:00:00 Only Erlin 43000.1.1 ity of Matthew 3.412.2.7 [place] .3.959676 MD Polo [facility] 2022-03-03 2022-03-03 Travel 1.2.840.1 1.2.133.970 5612 [id number] Univers 00:00:00 00:00:00 87739.1.1 350.1.13.41 ity of 3.412.2.7 2.2.7.3.698 [place] .3.688065 084.8 MD Duvall8 [facility] 2022-03-03 2022-03-03 Orders Demarcus 1.2.840.1 [id number] Univers 00:00:00 00:00:00 Only Erlin 06796.1.1 ity of Matthew 3.412.2.7 [place] .3.267742 MD Polo [facility] 2022-03-02 2022-03-02 [facility], 1.2.840.1 [id number] [id number] Univers 09:06:33 23:59:00 Encounter Ruth 60757.1.1 it y of 3.412.2.7 [place] .3.833899 MD Duvall8 [facility] 2022-03-02 2022-03-02 [facility], 1.2.840.1 [id number] Univers 09:06:33 23:59:00 Encounter Ruth 78846.1.1 it y of 3.412.2.7 [place] .3.550843 MD Duvall8 [facility] 2022-03-02 2022-03-02 Nutrition Silver Cardoza 1.2.840.1 [id number] [id number] Univers 11:00:00 11:22:34 Tresa Denis 68194.1.1 ity of 3.412.2.7 [place] .3.540424 MD Polo [facility] 2022-03-02 2022-03-02 [facility] Silver Mendez. 1.2.840.1 [id number] [id number] Univers 11:00:00 11:22:34 Tresa Denis 79229.1.1 ity of 3.412.2.7 [place] .3.760408 MD Polo [facility] 2022-03-02 2022-03-02 [facility] Sony, 1.2.840.1 [id number] Univers 08:56:14 09:05:00 Encounter Silver Pinon 95205.1.1 i ty of 3.412.2.7 [place] .3.671522 MD Polo [facility] 2022-03-02 2022-03-02 [facility] Sabasjewel, 1.2.840.1 [id number] Univers 08:56:14 09:05:00 Encounter Silver Pinon 63445.1.1 i ty of 3.412.2.7 [place] .3.582327 MD Polo [facility] 2022-03-02 2022-03-02 Travel 1.2.840.1 1.2.116.601 2351 [id number] Univers 00:00:00 00:00:00 12130.1.1 350.1.13.41 ity of 3.412.2.7 2.2.7.3.698 [place] .3.533545 084Christ Polo [facility] 2022-03-02 2022-03-02 Travel 1.2.840.1 1.2.620.811 2440 [id number] Univers 00:00:00 00:00:00 93796.1.1 350.1.13.41 ity of 3.412.2.7 2.2.7.3.698 [place] .3.739480 084Christ Polo [facility] 2022-02-26 2022-02-26 [facility] Sony, 1.2.840.1 [id number] [id number] Univers 09:25:00 23:59:00 Encounter Silver Pinon 99914.1.1 i ty of 3.412.2.7 [place] .3.094439 MD Polo [facility] 2022-02-26 2022-02-26 [facility] CHIKA Cardoza, 1.2.840.1 [id number] [facility] 09:25:00 23:59:00 Encounter Silver Pinon 34826.1.1 i ty of 3.412.2.7 [place] .3.975567 MD Polo [facility] 2022-02-26 2022-02-26 Travel 1.2.840.1 1.2.433.433 8132 [id number] Univers 00:00:00 00:00:00 85841.1.1 350.1.13.41 ity of 3.412.2.7 2.2.7.3.698 [place] .3.785451 084.Sindy Polo [facility] 2022-02-26 2022-02-26 Travel 1.2.840.1 1.2.630.223 2734 [id number] Univers 00:00:00 00:00:00 73908.1.1 350.1.13.41 ity of 3.412.2.7 2.2.7.3.698 [place] .3.637258 084.8 MD Polo [facility] 2022-02-25 2022-02-25 [facility], 1.2.840.1 [id number] Univers 10:15:00 23:59:00 Encounter Ruth 61941.1.1 it y of 3.412.2.7 [place] .3.223891 MD Polo [facility] 2022-02-25 2022-02-25 [facility] 1.2.840.1 [id number] Univers 10:15:00 23:59:00 Encounter Ruth 51003.1.1 it y of 3.412.2.7 [place] .3.447388 MD Polo [facility] 2022-02-24 2022-02-24 [facility] Yoana Palacios 1.2.840.1 [id number] 10 [id number] Univers 11:20:16 23:59:00 Encounter JustynCheli 72356.1.1 ity of 3.412.2.7 [place] .3.545702 MD Polo [facility] 2022-02-24 2022-02-24 [facility] Yoana Ramachandran 1.2.840.1 [id number] 10 [id number] Univers 11:20:16 23:59:00 Encounter Cheli Alejandra 07132.1.1 ity of 3.412.2.7 [place] .3.248346 MD Polo [facility] 2022-02-24 2022-02-24 [facility] 1.2.840.1 [id number] Univers 09:30:00 11:19:00 Encounter Silver Pinon 01092.1.1 i ty of 3.412.2.7 [place] .3Jadiel801877 MD Polo [facility] 2022-02-24 2022-02-24 [facility] Sabasjewel, 1.2.840.1 [id number] Univers 09:30:00 11:19:00 Encounter Silver Pinon 39342.1.1 i ty of 3.412.2.7 [place] .3.777974 MD Polo [facility] 2022-02-24 2022-02-24 [facility] Yoana Palacios 1.2.840.1 [id number] Univers 09:00:51 09:29:00 Encounter 95752.1.1 it y of 3.412.2.7 [place] .3.611458 MD Polo [facility] 2022-02-24 2022-02-24 [facility] Yoana Palacios 1.2.840.1 [id number] Univers 09:00:51 09:29:00 Encounter 90572.1.1 it y of 3.412.2.7 [place] .3.389599 MD Polo [facility] 2022-02-24 2022-02-24 [facility] 1.2.840.1 [id number] Univers 00:00:00 00:00:00 Only Jihan 46826.1.1 ity of 3.412.2.7 [place] .3.706261 MD Polo [facility] 2022-02-24 2022-02-24 Li Jean Baptiste 1.2.840.1 [id number] Univers 00:00:00 00:00:00 Only 24158.1.1 ity of 3.412.2.7 [place] .3.725139 MD Polo [facility] 2022-02-24 2022-02-24 Travel 1.2.840.1 1.2.284.007 8752 [id number] Univers 00:00:00 00:00:00 85078.1.1 350.1.13.41 ity of 3.412.2.7 2.2.7.3.698 [place] .3.039184 084.8 MD Polo [facility] 2022-02-24 2022-02-24 Orders Magdiel, 1.2.840.1 [id number] Univers 00:00:00 00:00:00 Only Pamela Beryl 67266.1.1 ity of 3.412.2.7 [place] .3.232324 MD Polo [facility] 2022-02-24 2022-02-24 Orders Scott 1.2.840.1 [id number] Univers 00:00:00 00:00:00 Only Jihan 82643.1.1 ity of 3.412.2.7 [place] .3.130416 MD Polo [facility] 2022-02-24 2022-02-24 Li Jean Baptiste 1.2.840.1 [id number] Univers 00:00:00 00:00:00 Only 17077.1.1 ity of 3.412.2.7 [place] .3.593184 MD Polo [facility] 2022-02-24 2022-02-24 Travel 1.2.840.1 1.2.892.294 8644 [id number] Univers 00:00:00 00:00:00 03494.1.1 350.1.13.41 ity of 3.412.2.7 2.2.7.3.698 [place] .3.286980 084.8 MD Polo [facility] 2022-02-24 2022-02-24 Orders Magdiel, 1.2.840.1 [id number] Univers 00:00:00 00:00:00 Only Pamela Cordoba 71652.1.1 ity of 3.412.2.7 [place] .3.999118 MD Polo [facility] 2022-02-23 2022-02-23 [facility] Sony, 1.2.840.1 [id number] Univers 09:35:00 23:59:00 Encounter Silver Pinon 21649.1.1 i ty of 3.412.2.7 [place] .3.303756 MD Polo [facility] 2022-02-23 2022-02-23 Hospital CHIKA Cardoza, 1.2.840.1 [id number] Univers 09:35:00 23:59:00 Encounter Silver Pinon 55859.1.1 i ty of 3.412.2.7 [place] .3.187747 MD Polo [facility] 2022-02-23 2022-02-23 Silver [place] 1.2.840.1 [id number] [id number] Univers 10:45:00 11:04:05 Tersa Denis 99302.1.1 ity of 3.412.2.7 [place] .3.467210 MD Polo [facility] 2022-02-23 2022-02-23 Nutrition Silver Mendez 1.2.840.1 [id number] [id number] Univers 10:45:00 11:04:05 Tresa Denis 67328.1.1 ity of 3.412.2.7 [place] .3.429043 MD Polo [facility] 2022-02-23 2022-02-23 [facility] 1.2.840.1 [id number] [id number] Univers 08:48:46 09:34:00 Encounter Ruth 84115.1.1 it y of 3.412.2.7 [place] .3.288083 MD Polo [facility] 2022-02-23 2022-02-23 [facility], 1.2.840.1 [id number] Univers 08:48:46 09:34:00 Encounter Ruth 02631.1.1 it y of 3.412.2.7 [place] .3.803503 MD Polo [facility] 2022-02-23 2022-02-23 Travel 1.2.840.1 1.2.129.701 9017 [id number] Univers 00:00:00 00:00:00 61212.1.1 350.1.13.41 ity of 3.412.2.7 2.2.7.3.698 [place] .3.496362 084.Sindy Polo [facility] 2022-02-23 2022-02-23 Travel 1.2.840.1 1.2.780.520 1589 [id number] Univers 00:00:00 00:00:00 03215.1.1 350.1.13.41 ity of 3.412.2.7 2.2.7.3.698 [place] .3.665491 084.Sindy Polo [facility] 2022-02-22 2022-02-22 [facility], 1.2.840.1 [id number] Univers 10:00:00 23:59:00 Encounter Silver Pinon 44433.1.1 i ty of 3.412.2.7 [place] .3.471376 MD Polo [facility] 2022-02-22 2022-02-22 [facility], 1.2.840.1 [id number] Univers 10:00:00 23:59:00 Encounter Silver Pinon 97587.1.1 i ty of 3.412.2.7 [place] .3.329583 MD Polo [facility] 2022-02-22 2022-02-22 Outpatient CHIKA SABASJEWEL [facility] [id number] 13:07:52 13:07:52 SILVER casey 2022-02-22 2022-02-22 Orders Magdiel, 1.2.840.1 [id number] Univers 00:00:00 00:00:00 Only Pamela Cordoba 04774.1.1 ity of 3.412.2.7 [place] .3.045968 MD Duvall8 [facility] 2022-02-22 2022-02-22 Orders Demarcus 1.2.840.1 [id number] Univers 00:00:00 00:00:00 Only Erlin 11392.1.1 ity of Matthew 3.412.2.7 [place] .3.923317 MD Polo [facility] 2022-02-22 2022-02-22 Orders Magdiel, 1.2.840.1 [id number] Univers 00:00:00 00:00:00 Only Pamela Cordoba 86850.1.1 ity of 3.412.2.7 [place] .3.927256 MD Polo [facility] 2022-02-22 2022-02-22 Orders Demarcus 1.2.840.1 [id number] Univers 00:00:00 00:00:00 Only Erlin 90917.1.1 ity of Matthew 3.412.2.7 [place] .3.078393 MD Polo [facility] 2022-02-19 2022-02-19 [facility], 1.2.840.1 [id number] Univers 09:45:40 23:59:00 Encounter Silver Pinon 57215.1.1 i ty of 3.412.2.7 [place] .3.799219 MD Duvall8 [facility] 2022-02-19 2022-02-19 [facility] Sony, 1.2.840.1 [id number] Univers 09:45:40 23:59:00 Encounter Silver Pinon 29620.1.1 i ty of 3.412.2.7 [place] .3.740348 MD Polo [facility] 2022-02-19 2022-02-19 Outpatient EL VEE-PARKER MDA MDA [id number] 14:47:44 15:04:18 LIANNERASHID [facility] 2022-02-19 2022-02-19 Travel 1.2.840.1 1.2.190.351 [id number] Univers 00:00:00 00:00:00 76125.1.1 350.1.13.41 ity of 3.412.2.7 2.[place].7.3.698 [place] .3.737196 084.8 MD Polo [facility] 2022-02-19 2022-02-19 Travel 1.2.840.1 1.2.375.460 [id number] Univers 00:00:00 00:00:00 35429.1.1 350.1.13.41 ity of 3.412.2.7 2.[place].7.3.698 [place] .3.144064 084.8 MD Polo [facility] 2022-02-18 2022-02-18 [facility] 1.2.840.1 [id number] [facility] 09:52:57 23:59:00 Encounter Silver Pinon 26517.1.1 i ty of 3.412.2.7 [place] .3.860892 MD Polo [facility] 2022-02-18 2022-02-[address] [facility] 1.2.840.1 [id number] Univers 09:52:57 23:59:00 Encounter Silver Pinon 47069.1.1 i ty of 3.412.2.7 [place] .3.407794 MD Polo [facility] 2022-02-18 2022-02-18 Travel 1.2.840.1 1.2.611.186 [id number] Univers 00:00:00 00:00:00 39901.1.1 350.1.13.41 ity of 3.412.2.7 2.[place].7.3.698 [place] .3.257955 084.8 .8 [facility] 2022-02-18 2022-02-18 Travel 1.2.840.1 1.2.734.425 [id number] Univers 00:00:00 00:00:00 69338.1.1 350.1.13.41 ity of 3.412.2.7 2.2.7.3.698 [place] .3.590618 084.8 .8 [facility] 2022-02-17 2022-02-17 [facility] Yoana Palacios 1.2.840.1 [id number] Univers 10:20:43 23:59:00 Encounter 94049.1.1 it y of 3.412.2.7 [place] .3.277980 MD Duvall8 [facility] 2022-02-17 2022-02-17 [facility] Yoana Palacios 1.2.840.1 [id number] Univers 10:20:43 23:59:00 Encounter 24498.1.1 it y of 3.412.2.7 [place] .3.377446 MD Duvall8 [facility] 2022-02-17 2022-02-17 Infusion Yoana Palacios 1.2.840.1 [id number] Univers 15:00:00 18:11:22 Gucci Kirkland 46243.1.1 ity of 3.412.2.7 [place] .3.962687 MD Polo [facility] 2022-02-17 2022-02-17 Infusion Yoana Palacios 1.2.840.1 [id number] Univers 15:00:00 18:11:22 Isael, Gucci 87317.1.1 ity of 3.412.2.7 [place] .3.260474 MD Polo [facility] 2022-02-17 2022-02-17 Office Li Currie 1.2.840.1 [id number] Univers 12:00:00 13:41:43 Visit 41134.1.1 ity of 3.412.2.7 [place] .3.342246 MD Duvall8 [facility] 2022-02-17 2022-02-17 Office Li Currie 1.2.840.1 [id number] Univers 12:00:00 13:41:43 Visit 22141.1.1 ity of 3.412.2.7 [place] .3.892352 MD Duvall8 [facility] 2022-02-17 2022-02-17 [facility], 1.2.840.1 [id number] Univers 09:32:53 10:19:00 Encounter Silver Pinon 56891.1.1 i ty of 3.412.2.7 [place] .3.887399 MD Duvall8 [facility] 2022-02-17 2022-02-17 [facility], 1.2.840.1 [id number] Univers 09:32:53 10:19:00 Encounter Silver Pinon 92232.1.1 i ty of 3.412.2.7 [place] .3.855523 MD Polo [facility] 2022-02-17 2022-02-17 Vitor Cole, 1.2.840.1 [id number] Univers 00:00:00 00:00:00 Only Warren 33431.1.1 ity of 3.412.2.7 [place] .3.492098 MD Polo [facility] 2022-02-17 2022-02-17 Travel 1.2.840.1 1.2.416.698 5342 [id number] Univers 00:00:00 00:00:00 50994.1.1 350.1.13.41 ity of 3.412.2.7 2.2.7.3.698 [place] .3.8795[place] 084.8 MD Polo [facility] 2022-02-17 2022-02-17 Vitor Cole, 1.2.840.1 [id number] Univers 00:00:00 00:00:00 Only Warren 29367.1.1 ity of 3.412.2.7 [place] .3.108478 MD Polo [facility] 2022-02-17 2022-02-17 Travel 1.2.840.1 1.2.945.563 8874 [id number] Univers 00:00:00 00:00:00 58580.1.1 350.1.13.41 ity of 3.412.2.7 2.2.7.3.698 [place] .3.138497 084.8 MD Duvall8 [facility] 2022-02-16 2022-02-16 [facility] 1.2.840.1 [id number] Univers 09:45:00 23:59:00 Encounter Silver Plummer50.1.1 i ty of 3.412.2.7 [place] .3.380416 MD Polo [facility] 2022-02-16 2022-02-[address] [facility] 1.2.840.1 [id number] Univers 09:45:00 23:59:00 Encounter Silver Pinon 15258.1.1 i ty of 3.412.2.7 [place] .3Jadiel840262 MD Polo [facility] 2022-02-16 2022-02-16 Nutrition Silver Cardoza 1.2.840.1 [id number] 4223 [id number] Univers 10:30:00 11:03:06 Tresa Denis 38593.1.1 ity of 3.412.2.7 [place] .3Jadiel963873 MD Polo [facility] 2022-02-16 2022-02-16 Nutrition Silver Cardoza 1.2.840.1 91453 4223 [id number] Univers 10:30:00 11:03:06 Tresa Denis 42383.1.1 ity of 3.412.2.7 [place] .3Jadiel025411 MD Polo [facility] 2022-02-16 2022-02-16 [facility], 1.2.840.1 [id number] [id number] Univers 08:59:08 09:44:00 Encounter Ruth 11897.1.1 it y of 3.412.2.7 [place] .3.752142 MD Polo [facility] 2022-02-16 2022-02-16 Hospital CHIKA Lim, 1.2.840.1 [id number] Univers 08:59:08 09:44:00 Encounter Ruth 99547.1.1 it y of 3.412.2.7 [place] .3.062560 MD Polo [facility] 2022-02-16 2022-02-16 Orders Demarcus 1.2.840.1 [id number] Univers 00:00:00 00:00:00 Only Kern, 93677.1.1 ity of Matthew 3.412.2.7 [place] .3.965183 MD Polo [facility] 2022-02-16 2022-02-16 Travel 1.2.840.1 1.2.105.556 3157 [id number] Univers 00:00:00 00:00:00 06893.1.1 350.1.13.41 ity of 3.412.2.7 2.2.7.3.698 [place] .3.419122 084.8 MD Polo [facility] 2022-02-16 2022-02-16 Orders Demarcus 1.2.840.1 [id number] Univers 00:00:00 00:00:00 Only Erlin, 07533.1.1 ity of Matthew 3.412.2.7 [place] .3.383412 MD Polo [facility] 2022-02-16 2022-02-16 Travel 1.2.840.1 1.2.549.271 8928 [id number] Univers 00:00:00 00:00:00 31628.1.1 350.1.13.41 ity of 3.412.2.7 2.2.7.3.698 [place] .3.509499 084.8 MD Polo [facility] 2022-02-15 2022-02-[address] [facility] [address] [facility], 1.2.840.1 [id number] Univers 09:21:43 23:59:00 Encounter Silver Pinon 50360.1.1 i ty of 3.412.2.7 [place] .3.539731 MD Polo [facility] 2022-02-15 2022-02-15 [facility], 1.2.840.1 [id number] 08886 Univers 09:21:43 23:59:00 Encounter Silver Pinon 60233.1.1 i ty of 3.412.2.7 [place] .3.897104 MD Polo [facility] 2022-02-15 2022-02-15 Vitor Cole, 1.2.840.1 [id number] Univers 00:00:00 00:00:00 Only Warren 82736.1.1 ity of 3.412.2.7 [place] .3.009536 MD Polo [facility] 2022-02-15 2022-02-15 Travel 1.2.840.1 1.2.920.091 3202 [id number] Univers 00:00:00 00:00:00 46558.1.1 350.1.13.41 ity of 3.412.2.7 2.2.7.3.698 [place] .3.045878 084.8 MD Polo [facility] 2022-02-15 2022-02-15 Vitor Cole, 1.2.840.1 [id number] Univers 00:00:00 00:00:00 Only Warren 92052.1.1 ity of 3.412.2.7 [place] .3.269814 MD Polo [facility] 2022-02-15 2022-02-15 Travel 1.2.840.1 1.2.787.544 3421 [id number] Univers 00:00:00 00:00:00 88226.1.1 350.1.13.41 ity of 3.412.2.7 2.2.7.3.698 [place] .3.902330 084.8 MD Polo [facility] 2022-02-12 2022-02-12 Emergency Maria L, 1.2.840.1 [id number] 1093 [id number] Univers 10:10:00 12:34:00 Besim 97675.1.1 ity of 3.412.2.7 [place] .3.813470 MD Polo [facility] 2022-02-12 2022-02-12 Emergency Maria L, 1.2.840.1 [id number] 1093 [id number] Univers 10:10:00 12:34:00 Besim 26472.1.1 ity of 3.412.2.7 [place] .3Jadiel813713 MD Polo [facility] 2022-02-12 2022-02-12 [facility], 1.2.840.1 [id number] Univers 09:20:00 10:09:00 Encounter Silver Pinon 13977.1.1 i ty of 3.412.2.7 [place] .3Jadiel558194 MD Polo [facility] 2022-02-12 2022-02-12 [facility], 1.2.840.1 [id number] Univers 09:20:00 10:09:00 Encounter Silver Pinon 17765.1.1 i ty of 3.412.2.7 [place] .3Jadiel622341 MD Polo [facility] 2022-02-12 2022-02-12 [facility], 1.2.840.1 [id number] [id number] Univers 08:47:27 09:19:00 Encounter Silver Pinon 85316.1.1 i ty of 3.412.2.7 [place] .3Jadiel526924 MD Polo [facility] 2022-02-12 2022-02-12 [facility], 1.2.840.1 [id number] Univers 08:47:27 09:19:00 Encounter Silver Pinon 12457.1.1 i ty of 3.412.2.7 [place] .3Jadiel477011 MD Polo [facility] 2022-02-12 2022-02-12 Travel 1.2.840.1 1.2.817.168 9644 [id number] Univers 00:00:00 00:00:00 24767.1.1 350.1.13.41 ity of 3.412.2.7 2.2.7.3.698 [place] .3.693437 084.8 MD Polo [facility] 2022-02-12 2022-02-12 Telephone Fer, 1.2.840.1 [id number] [id number] Univers 00:00:00 00:00:00 Erin Cordoba 02546.1.1 ity of 3.412.2.7 [place] .3.615085 MD Polo [facility] 2022-02-12 2022-02-12 Travel 1.2.840.1 1.2.256.056 4866 [id number] Univers 00:00:00 00:00:00 50407.1.1 350.1.13.41 ity of 3.412.2.7 2.2.7.3.698 [place] .3.163199 084.8 MD Polo [facility] 2022-02-12 2022-02-12 Telephone Fer, 1.2.840.1 [id number] [id number] Univers 00:00:00 00:00:00 Erin Cordoba 18422.1.1 ity of 3.412.2.7 [place] .3.010607 MD Polo [facility] 2022-02-11 2022-02-11 [facility], 1.2.840.1 [id number] Univers 09:50:00 23:59:00 Encounter Silver Pinon 97829.1.1 i ty of 3.412.2.7 [place] .3.846590 MD Polo [facility] 2022-02-11 2022-02-11 [facility], 1.2.840.1 [id number] Univers 09:50:00 23:59:00 Encounter Silver Pinon 96283.1.1 i ty of 3.412.2.7 [place] .3.743065 MD Polo [facility] 2022-02-11 2022-02-11 Travel 1.2.840.1 1.2.677.552 9879 [id number] Univers 00:00:00 00:00:00 07241.1.1 350.1.13.41 ity of 3.412.2.7 2.2.7.3.698 [place] .3.542773 084.8 MD Polo [facility] 2022-02-11 2022-02-11 Travel 1.2.840.1 1.2.048.232 8130 [id number] Univers 00:00:00 00:00:00 40186.1.1 350.1.13.41 ity of 3.412.2.7 2.2.7.3.698 [place] .3.526333 084.8 MD Polo [facility] 2022-02-10 [facility]1 69525 [id number] [id number] Univers 13:03:26 23:59:00 Encounter Edwardo So 37810.1.1 ity of 3.412.2.7 [place] .3.088376 MD Polo [facility] 2022-02-10 2022-02-10 [facility] 1.2.840.1 83108 4463 [id number] Univers 13:03:26 23:59:00 Encounter Edwardo So 72422.1.1 ity of 3.412.2.7 [place] .3.956315 MD Polo [facility] 2022-02-10 2022-02-10 [facility] Yoana Palacios 1.2.840.1 [id number] Univers 10:38:23 13:02:00 Encounter 11515.1.1 it y of 3.412.2.7 [place] .3.957965 MD Polo [facility] 2022-02-10 2022-02-10 [facility] Yoana Palacios 1.2.840.1 [id number] Univers 10:38:23 13:02:00 Encounter 11025.1.1 it y of 3.412.2.7 [place] .3.253310 MD Polo [facility] 2022-02-10 2022-02-10 [facility], 1.2.840.1 [id number] [id number] Univers 09:40:00 10:37:00 Encounter Silver Pinon 39768.1.1 i ty of 3.412.2.7 [place] .3.681930 MD Duvall8 [facility] 2022-02-10 2022-02-10 [facility], 1.2.840.1 [id number] [id number] Univers 09:40:00 10:37:00 Encounter Silver Pinon 94866.1.1 i ty of 3.412.2.7 [place] .3.698149 MD Duvall8 [facility] 2022-02-10 2022-02-10 Vitor Sim, 1.2.840.1 [id number] 1093 [id number] Univers 00:00:00 00:00:00 Only Tresa Mika 05988.1.1 ity of 3.412.2.7 [place] .3.512205 MD Duvall8 [facility] 2022-02-10 2022-02-10 Travel 1.2.840.1 1.2.118.975 6115 [id number] Univers 00:00:00 00:00:00 82960.1.1 350.1.13.41 ity of 3.412.2.7 2.2.7.3.698 [place] .3.110859 084.8 MD Polo [facility] 2022-02-10 2022-02-10 Vitor Sim, 1.2.840.1 [id number] 1093 [id number] Univers 00:00:00 00:00:00 Only Tresa Mika 50310.1.1 ity of 3.412.2.7 [place] .3.113113 MD Polo [facility] 2022-02-10 2022-02-10 Travel 1.2.840.1 1.2.660.095 9954 [id number] Univers 00:00:00 00:00:00 10889.1.1 350.1.13.41 ity of 3.412.2.7 2.2.7.3.698 [place] .3.352894 084.8 MD Polo [facility] 2022-02-09 2022-02-09 [facility], 1.2.840.1 [id number] [id number] Univers 09:25:47 23:59:00 Encounter Silver Pinon 40342.1.1 i ty of 3.412.2.7 [place] .3.090533 MD Duvall8 [facility] 2022-02-09 2022-02-09 [facility], 1.2.840.1 [id number] Univers 09:25:47 23:59:00 Encounter Silver Pinon 26595.1.1 i ty of 3.412.2.7 [place] .3.926118 MD Duvall8 [facility] 2022-02-09 2022-02-09 [facility], 1.2.840.1 [id number] Univers 09:00:58 09:24:00 Encounter Ruth 34002.1.1 it y of 3.412.2.7 [place] .3.244187 MD Polo [facility] 2022-02-09 2022-02-09 [facility], 1.2.840.1 [id number] Univers 09:00:58 09:24:00 Encounter Ruth 63863.1.1 it y of 3.412.2.7 [place] .3.976822 MD Polo [facility] 2022-02-09 2022-02-09 Orders Espino, 1.2.840.1 [id number] Univers 00:00:00 00:00:00 Only Emily 34681.1.1 ity of Chunyi 3.412.2.7 [place] .3.310582 MD Polo [facility] 2022-02-09 2022-02-09 Travel 1.2.840.1 1.2.794.263 9172 [id number] Univers 00:00:00 00:00:00 91993.1.1 350.1.13.41 ity of 3.412.2.7 2.2.7.3.698 [place] .3.398672 084.8 MD Duvall8 [facility] 2022-02-09 2022-02-09 Orders Espino, 1.2.840.1 [id number] Univers 00:00:00 00:00:00 Only Emily 59229.1.1 ity of Jovanynyi 3.412.2.7 [place] .3.902281 MD Duvall8 [facility] 2022-02-09 2022-02-09 Travel 1.2.840.1 1.2.763.324 9332 [id number] Univers 00:00:00 00:00:00 75502.1.1 350.1.13.41 ity of 3.412.2.7 2.2.7.3.698 [place] .3.033058 084.8 MD Polo [facility] 2022-02-08 2022-02-08 [facility], 1.2.840.1 [id number] [id number] Univers 13:04:18 23:59:00 Encounter Silver Pinon 21107.1.1 i ty of 3.412.2.7 [place] .3.610092 MD uDvall8 [facility] 2022-02-08 2022-02-08 [facility], 1.2.840.1 [id number] Univers 13:04:18 23:59:00 Encounter Silver Pinon 35171.1.1 i ty of 3.412.2.7 [place] .3.818156 MD Polo [facility] 2022-02-08 2022-02-08 Nutrition Silver Cardoza 1.2.840.1 65735 4223 [id number] Univers 11:00:00 11:21:47 Tresa Denis 41779.1.1 ity of 3.412.2.7 [place] .3.973331 MD Polo [facility] 2022-02-08 2022-02-08 Nutrition Silver Cardoza 1.2.840.1 34559 4223 [id number] Univers 11:00:00 11:21:47 Tresa Denis 62287.1.1 ity of 3.412.2.7 [place] .3.261588 MD Polo [facility] 2022-02-08 2022-02-08 Travel 1.2.840.1 1.2.148.560 4271 [id number] Univers 00:00:00 00:00:00 56317.1.1 350.1.13.41 ity of 3.412.2.7 2.2.7.3.698 [place] .3.503665 084.8 MD Polo [facility] 2022-02-08 2022-02-08 Yoana Espinosa 1.2.840.1 [id number] Univers 00:00:00 00:00:00 Only 16933.1.1 ity of 3.412.2.7 [place] .3.035911 MD Polo [facility] 2022-02-08 2022-02-08 Travel 1.2.840.1 1.2.486.998 7710 [id number] Univers 00:00:00 00:00:00 02691.1.1 350.1.13.41 ity of 3.412.2.7 2.2.7.3.698 [place] .3.300121 084.Sindy Polo [facility] 2022-02-08 2022-02-08 Yoana Espinosa 1.2.840.1 [id number] Univers 00:00:00 00:00:00 Only 45859.1.1 ity of 3.412.2.7 [place] .3.732083 MD Polo [facility] 2022-02-05 2022-02-05 [facility] Sony, 1.2.840.1 [id number] Univers 10:51:03 23:59:00 Yann Pinon 61927.1.1 i ty of 3.412.2.7 [place] .3.297220 MD Polo [facility] 2022-02-05 2022-02-05 [facility], 1.2.840.1 [id number] Univers 10:51:03 23:59:00 Encounter Silver JiJadiel 52171.1.1 i ty of 3.412.2.7 [place] .3.696684 MD Duvall8 [facility] 2022-02-05 2022-02-05 Orders Roney, 1.2.840.1 [id number] Univers 00:00:00 00:00:00 Only Tresa Mika 36985.1.1 ity of 3.412.2.7 [place] .3.697133 MD Duvall8 [facility] 2022-02-05 2022-02-05 Orders Greta Gould 1.2.840.1 [id number] Univers 00:00:00 00:00:00 Only 20123.1.1 ity of 3.412.2.7 [place] .3.515107 MD Polo [facility] 2022-02-05 2022-02-05 Orders Cherrie, 1.2.840.1 [id number] Univers 00:00:00 00:00:00 Only Michaela León 42706.1.1 it y of 3.412.2.7 [place] .3.091129 MD Polo [facility] 2022-02-05 2022-02-05 Travel 1.2.840.1 1.2.801.414 9343 [id number] Univers 00:00:00 00:00:00 43130.1.1 350.1.13.41 ity of 3.412.2.7 2.2.7.3.698 [place] .3.621330 084.8 MD Polo [facility] 2022-02-05 2022-02-05 Orders Chandana, 1.2.840.1 [id number] Univers 00:00:00 00:00:00 Only Xin Walsh 82433.1.1 i ty of 3.412.2.7 [place] .3.674603 MD Polo [facility] 2022-02-05 2022-02-05 Orders Roney 1.2.840.1 [id number] [id number] Univers 00:00:00 00:00:00 Only Tresa Brennan 47747.1.1 ity of 3.412.2.7 [place] .3.949704 MD Polo [facility] 2022-02-05 2022-02-05 Orders Greta Gould 1.2.840.1 [id number] Univers 00:00:00 00:00:00 Only 33398.1.1 ity of 3.412.2.7 [place] .3.105143 MD Polo [facility] 2022-02-05 2022-02-05 Orders Cherrie, 1.2.840.1 [id number] Univers 00:00:00 00:00:00 Only Michaela León 90057.1.1 it y of 3.412.2.7 [place] .3.320257 MD Polo [facility] 2022-02-05 2022-02-05 Travel 1.2.840.1 1.2.501.210 5970 [id number] Univers 00:00:00 00:00:00 77048.1.1 350.1.13.41 ity of 3.412.2.7 2.2.7.3.698 [place] .3.271719 084.8 MD Polo [facility] 2022-02-05 2022-02-05 Orders [place], 1.2.840.1 [id number] Univers 00:00:00 00:00:00 Only Xin Walsh 47198.1.1 i ty of 3.412.2.7 [place] .3.999814 MD Polo [facility] 2022-02-04 2022-02-04 [facility], 1.2.840.1 [id number] Univers 10:49:36 23:59:00 Encounter Silver Pinon 07494.1.1 i ty of 3.412.2.7 [place] .3.722747 MD Polo [facility] 2022-02-04 2022-02-04 [facility], 1.2.840.1 [id number] Univers 10:49:36 23:59:00 Encounter Silver Pinon 55832.1.1 i ty of 3.412.2.7 [place] .3.279416 MD Polo [facility] 2022-02-04 2022-02-04 Travel 1.2.840.1 1.2.167.989 9017 [id number] Univers 00:00:00 00:00:00 94014.1.1 350.1.13.41 ity of 3.412.2.7 2.2.7.3.698 [place] .3.234000 084.8 MD Polo [facility] 2022-02-04 2022-02-04 Travel 1.2.840.1 1.2.789.696 5583 [id number] Univers 00:00:00 00:00:00 61972.1.1 350.1.13.41 ity of 3.412.2.7 2.2.7.3.698 [place] .3.863448 084.8 MD Polo [facility] 2022-02-03 2022-02-03 [facility] 1.2.840.1 [id number] [facility] 10:15:00 23:59:00 Encounter Silver Pinon 72913.1.1 i ty of 3.412.2.7 [place] .3.899474 MD Polo [facility] 2022-02-03 2022-02-03 [facility] 1.2.840.1 [id number] Univers 10:15:00 23:59:00 Encounter Silver Pinon 13118.1.1 i ty of 3.412.2.7 [place] .3.269173 MD Polo [facility] 2022-02-03 2022-02-03 [facility] Warren Cole 1.2.840.1 [id number] Univers 12:15:00 17:45:34 Alka Matos 36848.1.1 ity of 3.412.2.7 [place] .3Jadiel778883 MD Polo [facility] 2022-02-03 2022-02-03 Soren Cole Warren 1.2.840.1 [id number] Univers 12:15:00 17:45:34 Alka Matos 56939.1.1 ity of 3.412.2.7 [place] .3.139976 MD Polo [facility] 2022-02-03 2022-02-03 [facility], 1.2.840.1 [id number] Univers 09:45:00 10:14:00 Encounter Warren 34803.1.1 it y of 3.412.2.7 [place] .3.909905 MD Polo [facility] 2022-02-03 2022-02-03 [facility], 1.2.840.1 [id number] [id number] Univers 09:45:00 10:14:00 Encounter Warren 25655.1.1 it y of 3.412.2.7 [place] .3.583692 MD Polo [facility] 2022-02-03 2022-02-03 Travel 1.2.840.1 1.2.707.194 3990 [id number] Univers 00:00:00 00:00:00 98965.1.1 350.1.13.41 ity of 3.412.2.7 2.2.7.3.698 [place] .3.283635 084.Sindy Polo [facility] 2022-02-03 2022-02-03 Travel 1.2.840.1 1.2.680.409 7466 [id number] Univers 00:00:00 00:00:00 76045.1.1 350.1.13.41 ity of 3.412.2.7 2.2.7.3.698 [place] .3.212487 084.8 MD Polo [facility] 2022-02-02 2022-02-02 [facility], 1.2.840.1 [id number] Univers 10:50:00 23:59:00 Encounter Silver Pinon 29671.1.1 i ty of 3.412.2.7 [place] .3Jadiel152052 MD Polo [facility] 2022-02-02 2022-02-02 [facility], 1.2.840.1 [id number] Univers 10:50:00 23:59:00 Encounter Silver Pinon 73023.1.1 i ty of 3.412.2.7 [place] .3.816591 MD Polo [facility] 2022-02-02 2022-02-02 [facility], 1.2.840.1 [id number] Univers 08:58:31 09:51:00 Encounter Ruth 59251.1.1 it y of 3.412.2.7 [place] .3.854475 MD Polo [facility] 2022-02-02 2022-02-02 [facility], 1.2.840.1 [id number] Univers 08:58:31 09:51:00 Encounter Ruth 62216.1.1 it y of 3.412.2.7 [place] .3.567720 MD Polo [facility] 2022-02-02 2022-02-02 Vitor Veloz, 1.2.840.1 [id number] Univers 00:00:00 00:00:00 Only Pamela Cordoba 97141.1.1 ity of 3.412.2.7 [place] .3.618292 MD Polo [facility] 2022-02-02 2022-02-02 Travel 1.2.840.1 1.2.668.333 [id number] Univers 00:00:00 00:00:00 34798.1.1 350.1.13.41 ity of 3.412.2.7 2.[place]7.3.698 [place] .3.578781 084.8 MD Polo [facility] 2022-02-02 2022-02-02 Vitor Veloz, 1.2.840.1 [id number] Univers 00:00:00 00:00:00 Only Pamela Cordoba 50155.1.1 ity of 3.412.2.7 [place] .3.252530 MD Polo [facility] 2022-02-02 2022-02-02 Travel 1.2.840.1 1.2.530.798 [id number] Univers 00:00:00 00:00:00 11127.1.1 350.1.13.41 ity of 3.412.2.7 2.[place]7.3.698 [place] .3.859524 084.8 MD Polo [facility] 2022-02-01 2022-02-01 [facility], 1.2.840.1 [id number] Univers 08:39:19 23:59:00 Encounter Silver Pinon 39865.1.1 i ty of 3.412.2.7 [place] .3.632980 MD Polo [facility] 2022-02-01 2022-02-01 [facility], 1.2.840.1 [id number] Univers 08:39:19 23:59:00 Encounter Silver Pinon 44039.1.1 i ty of 3.412.2.7 [place] .3.395527 MD Polo [facility] 2022-02-01 2022-02-01 Travel 1.2.840.1 1.2.471.283 [id number] Univers 00:00:00 00:00:00 40691.1.1 350.1.13.41 ity of 3.412.2.7 2.2.7.3.698 [place] .3.332730 084.8 MD Polo [facility] 2022-02-01 2022-02-01 Travel 1.2.840.1 1.2.193.064 [id number] Univers 00:00:00 00:00:00 03496.1.1 350.1.13.41 ity of 3.412.2.7 2.2.7.3.698 [place] .3.948628 084.8 MD Polo [facility] 2022-01-29 2022-01-29 Ancillary Sathya, 1.2.840.1 [id number] Univers 11:30:00 14:00:00 Procedure Warren 04147.1.1 it y of 3.412.2.7 [place] .3.499568 MD [place]8 [facility] 2022-01-29 2022-01-29 Ancillary Sathya, 1.2.840.1 [id number] Univers 11:30:00 14:00:00 Procedure Warren 29999.1.1 it y of 3.412.2.7 [place] .3.175998 MD Duvall8 [facility] 2022-01-29 2022-01-29 Travel 1.2.840.1 1.2.202.011 0509 [id number] Univers 00:00:00 00:00:00 46327.1.1 350.1.13.41 ity of 3.412.2.7 [place].3.698 [place] .3.335128 084.8 MD Polo [facility] 2022-01-29 2022-01-29 Travel 1.2.840.1 1.2.734.521 0215 [id number] Univers 00:00:00 00:00:00 37558.1.1 350.1.13.41 ity of 3.412.2.7 [place]7.3.698 [place] .3.196372 084.8 MD Polo [facility] 2022-01-28 2022-01-28 Clinical Silver Cardoza 1.2.840.1 [id number] Univers 11:00:00 11:02:38 Support Phyllis Mcnamara 72476.1.1 ity of 3.412.2.7 [place] .3.265479 MD Polo [facility] 2022-01-28 2022-01-28 Clinical Silver Cardoza 1.2.840.1 [id number] Univers 11:00:00 11:02:38 Support Phyllis Mcnamara 63048.1.1 ity of 3.412.2.7 [place] .3.306157 MD Polo [facility] 2022-01-28 2022-01-28 Travel 1.2.840.1 1.2.769.935 9661 [id number] Univers 00:00:00 00:00:00 59399.1.1 350.1.13.41 ity of 3.412.2.7 2.[place].7.3.698 [place] .3.665551 084.8 MD Duvall8 [facility] 2022-01-28 2022-01-28 Travel 1.2.840.1 1.2.095.913 9977 [id number] Univers 00:00:00 00:00:00 89590.1.1 350.1.13.41 ity of 3.412.2.7 2.[place].7.3.698 [place] .3.088007 084.8 MD Polo [facility] 2022-01-27 2022-01-27 Vitor Jolly, 1.2.840.1 [id number] Univers 00:00:00 00:00:00 Only Freddie 53135.1.1 ity of 3.412.2.7 [place] .3.697331 MD Polo [facility] 2022-01-27 2022-01-27 Documentat Shelly, 1.2.840.1 [id number] 1 [id number] Univers 00:00:00 00:00:00 ion Ruth 58792.1.1 ity of 3.412.2.7 [place] .3.796936 MD Duvall8 [facility] 2022-01-27 2022-01-27 Vitor Cole, 1.2.840.1 [id number] Univers 00:00:00 00:00:00 Only Warren 47991.1.1 ity of 3.412.2.7 [place] .3.904272 MD Duvall8 [facility] 2022-01-27 2022-01-27 Vitor Jolly, 1.2.840.1 [id number] Univers 00:00:00 00:00:00 Only Mehmet 02302.1.1 ity of 3.412.2.7 [place] .3.168940 MD Polo [facility] 2022-01-27 2022-01-27 Documentat Rex`Crews, 1.2.840.1 [id number] 1 [id number] Univers 00:00:00 00:00:00 ion Ruth 89843.1.1 ity of 3.412.2.7 [place] .3.908652 MD Polo [facility] 2022-01-27 2022-01-27 Vitor Cole 1.2.840.1 [id number] Univers 00:00:00 00:00:00 Only Warren 88818.1.1 ity of 3.412.2.7 [place] .3.400246 MD Duvall8 [facility] 2022-01-26 2022-01-26 [facility] 1.2.840.1 [id number] Univers 06:00:00 23:59:00 Encounter Silver Pinon 94593.1.1 i ty of 3.412.2.7 [place] .3.382211 MD Polo [facility] 2022-01-26 2022-01-26 [facility] 1.2.840.1 [id number] [id number] Univers 06:00:00 23:59:00 Encounter Silver Pinon 70043.1.1 i ty of 3.412.2.7 [place] .3Jadiel357896 MD Polo [facility] 2022-01-20 2022-01-20 Vitor Cole 1.2.840.1 [id number] Univers 00:00:00 00:00:00 Only Warren 92158.1.1 ity of 3.412.2.7 [place] .3Jadiel312690 MD Polo [facility] 2022-01-20 2022-01-20 Vitor Cole 1.2.840.1 [id number] Univers 00:00:00 00:00:00 Only Warren 85917.1.1 ity of 3.412.2.7 [place] .3Jadiel032550 MD Duvall8 [facility] 2022-01-11 2022-01-11 [facility], 1.2.840.1 [id number] Univers 12:00:00 23:59:00 Encounter Ruth 94872.1.1 it y of 3.412.2.7 [place] .3.888347 MD Duvall8 [facility] 2022-01-11 2022-01-11 [facility], 1.2.840.1 [id number] Univers 12:00:00 23:59:00 Encounter Ruth 19750.1.1 it y of 3.412.2.7 [place] .3.308948 MD Duvall8 [facility] 2022-01-11 2022-01-11 [facility], 1.2.840.1 [id number] Univers 09:30:00 09:30:00 Encounter Ruth 56445.1.1 it y of 3.412.2.7 [place] .3.652629 MD Duvall8 [facility] [place] 2022-01-11 2022-01-11 [facility], 1.2.840.1 [id number] Univers 09:30:00 09:30:00 Encounter Emily 78117.1.1 it y of [place] 3.412.2.7 [place] .3.754954 MD Duvall8 [facility] 2022-01-11 2022-01-11 [facility], 1.2.840.1 [id number] [id number] Univers 09:30:00 09:30:00 Encounter Ruth 85488.1.1 it y of 3.412.2.7 [place] .3.612372 MD Duvall8 [facility] [place] 2022-01-11 2022-01-11 [facility], 1.2.840.1 [id number] Univers 09:30:00 09:30:00 Encounter Emily 53826.1.1 it y of [place] 3.412.2.7 [place] .3.734977 MD Duvall8 [facility] [place] 2022-01-11 2022-01-11 [facility], 1.2.840.1 [id number] Univers 09:00:00 09:29:00 Encounter Ruth 34731.1.1 it y of 3.412.2.7 [place] .3.826117 MD Polo [facility] 2022-01-11 2022-01-11 [facility], 1.2.840.1 [id number] Univers 09:00:00 09:29:00 Encounter Ruth 33228.1.1 it y of 3.412.2.7 [place] .3.560639 MD Polo [facility] 2022-01-11 2022-01-11 [facility], 1.2.840.1 [id number] Univers 07:50:59 08:59:00 Encounter Ruth 86443.1.1 it y of 3.412.2.7 [place] .3.800485 MD Polo [facility] 2022-01-11 2022-01-11 [facility], 1.2.840.1 [id number] Univers 07:50:59 08:59:00 Encounter Ruth 39685.1.1 it y of 3.412.2.7 [place] .3.755893 MD Polo [facility] 2022-01-11 2022-01-11 Travel 1.2.840.1 1.2.821.505 1211 [id number] Univers 00:00:00 00:00:00 19996.1.1 350.1.13.41 ity of 3.412.2.7 [place]7.3.698 [place] .3.396788 084.8 MD Polo [facility] 2022-01-11 2022-01-11 Travel 1.2.840.1 1.2.562.434 9785 [id number] Univers 00:00:00 00:00:00 67551.1.1 350.1.13.41 ity of 3.412.2.7 2.2.7.3.698 [place] .3.843524 084Jadiel8 MD Polo [facility] 2022-01-08 2022-01-08 Telephone Taina, 1.2.840.1 [id number] Univers 00:00:00 00:00:00 Michael Cordoba 49851.1.1 ity of 3.412.2.7 [place] .3.810025 MD Duvall8 [facility] 2022-01-08 2022-01-08 Documentat Wilson, 1.2.840.1 [id number] Univers 00:00:00 00:00:00 ion Mary Grace H 10968.1.1 ity of 3.412.2.7 [place] .3.696233 MD Duvall8 [facility] 2022-01-08 2022-01-08 Telephone Taina, 1.2.840.1 [id number] [id number] Univers 00:00:00 00:00:00 Michael Cordoba 67101.1.1 ity of 3.412.2.7 [place] .3.405255 MD Duvall8 [facility] 2022-01-08 2022-01-08 Documentat Steve, 1.2.840.1 [id number] [id number] Univers 00:00:00 00:00:00 ion Mary Grace H 51222.1.1 ity of 3.412.2.7 [place] .3.021777 MD Duvall8 [facility] 2022-01-07 2022-01-07 [facility], 1.2.840.1 [id number] 003 [id number] Univers 15:00:00 23:59:00 Encounter Ruth 43958.1.1 it y of 3.412.2.7 [place] .3.644365 MD Duvall8 [facility] 2022-01-07 2022-01-07 [facility], 1.2.840.1 [id number] [id number] Univers 15:00:00 23:59:00 Encounter Ruth 42010.1.1 it y of 3.412.2.7 [place] .3.737689 MD Duvall8 [facility] 2022-01-07 2022-01-07 Travel 1.2.840.1 1.2.581.557 4449 [id number] Univers 00:00:00 00:00:00 87117.1.1 350.1.13.41 ity of 3.412.2.7 2.2[place]7.3.698 [place] .3.668431 084.8 MD Duvall8 [facility] 2022-01-07 2022-01-07 Travel 1.2.840.1 1.2.152.257 6172 [id number] Univers 00:00:00 00:00:00 02041.1.1 350.1.13.41 ity of 3.412.2.7 2.2.7.3.698 [place] .3.826943 084.8 MD Duvall8 [facility] 2022-01-06 2022-01-06 [facility], 1.2.840.1 [id number] Univers 10:30:29 23:59:00 Encounter Warren 55818.1.1 it y of 3.412.2.7 [place] .3.212853 MD Duvall8 [facility] 2022-01-06 2022-01-06 [facility], 1.2.840.1 [id number] Univers 10:30:29 23:59:00 Encounter Warren 18959.1.1 it y of 3.412.2.7 [place] .3.543077 MD Duvall8 [facility] 2022-01-06 2022-01-06 Infusion Rosario Coleika 1.2.840.1 [id number] Univers 16:30:00 18:31:58 Estella Connolly 57956.1.1 ity of 3.412.2.7 [place] .3.679406 MD Duvall8 [facility] 2022-01-06 2022-01-06 Infusion Roasrio Coleika 1.2.840.1 [id number] Univers 16:30:00 18:31:58 Estella Connolly 73040.1.1 ity of 3.412.2.7 [place] .3.937134 MD Polo [facility] 2022-01-06 2022-01-06 Office Li Currie 1.2.840.1 [id number] Univers 12:40:00 13:54:37 Visit 65037.1.1 ity of 3.412.2.7 [place] .3Jadiel272751 MD Duvall8 [facility] 2022-01-06 2022-01-06 Office Li Currie 1.2.840.1 [id number] Univers 12:40:00 13:54:37 Visit 47912.1.1 ity of 3.412.2.7 [place] .3.723866 MD Duvall8 [facility] 2022-01-06 2022-01-06 [facility], 1.2.840.1 [id number] Univers 09:11:15 10:29:00 Encounter Ruth 77484.1.1 it y of 3.412.2.7 [place] .3.615992 .8 [facility] 2022-01-06 2022-01-06 [facility], 1.2.840.1 [id number] Univers 09:11:15 10:29:00 Encounter Ruth 01918.1.1 it y of 3.412.2.7 [place] .3.910823 MD Duvall8 [facility] 2022-01-06 2022-01-06 Vitor Espino, 1.2.840.1 [id number] Univers 00:00:00 00:00:00 Only Emily 59959.1.1 ity of [place] 3.412.2.7 [place] .3.308221 MD Duvall8 [facility] 2022-01-06 2022-01-06 Orders Magdiel, 1.2.840.1 [id number] Univers 00:00:00 00:00:00 Only Pamela Cordoba 50539.1.1 ity of 3.412.2.7 [place] .3.692016 MD Duvall8 [facility] 2022-01-06 2022-01-06 Documentat Magdiel, 1.2.840.1 [id number] Univers 00:00:00 00:00:00 ion Pamela C 04362.1.1 ity of 3.412.2.7 [place] .3.035842 MD Polo [facility] 2022-01-06 2022-01-06 Vitor Cole, 1.2.840.1 [id number] 0003 Univers 00:00:00 00:00:00 Only Warren 27993.1.1 ity of 3.412.2.7 [place] .3.166132 MD Duvall8 [facility] 2022-01-06 2022-01-06 Travel 1.2.840.1 1.2.538.665 [id number] [id number] Univers 00:00:00 00:00:00 32078.1.1 350.1.13.41 ity of 3.412.2.7 2.2.7.3.698 [place] .3.960075 084.8 MD Polo [facility] 2022-01-06 2022-01-06 Vitor Espino, 1.2.840.1 [id number] Univers 00:00:00 00:00:00 Only Emily 36446.1.1 ity of [place] 3.412.2.7 [place] .3.722306 MD Polo [facility] 2022-01-06 2022-01-06 Orders Magdiel, 1.2.840.1 [id number] Univers 00:00:00 00:00:00 Only Pamela C 11927.1.1 ity of 3.412.2.7 [place] .3.849261 MD Polo [facility] 2022-01-06 2022-01-06 Documentat Magdiel, 1.2.840.1 [id number] Univers 00:00:00 00:00:00 ion Pamela C 59916.1.1 ity of 3.412.2.7 [place] .3.817946 MD Polo [facility] 2022-01-06 2022-01-06 Vitor Cole 1.2.840.1 [id number] Univers 00:00:00 00:00:00 Only Warren 76208.1.1 ity of 3.412.2.7 [place] .3.039535 MD Duvall8 [facility] 2022-01-06 2022-01-06 Travel 1.2.840.1 1.2.335.449 2243 [id number] Univers 00:00:00 00:00:00 40035.1.1 350.1.13.41 ity of 3.412.2.7 2.2.7.3.698 [place] .3.741454 084.8 MD Duvall8 [facility] 2022-01-05 2022-01-05 Orders Magdiel, 1.2.840.1 [id number] Univers 00:00:00 00:00:00 Only Pamela C 13061.1.1 ity of 3.412.2.7 [place] .3.095452 MD Duvall8 [facility] 2022-01-05 2022-01-05 Orders Magdiel, 1.2.840.1 [id number] Univers 00:00:00 00:00:00 Only Pamela C 42461.1.1 ity of 3.412.2.7 [place] .3.411520 MD Duvall8 [facility] 2022-01-04 2022-01-04 Orders Magdiel, 1.2.840.1 [id number] Univers 00:00:00 00:00:00 Only Pamela C 16983.1.1 ity of 3.412.2.7 [place] .3.989330 MD Duvall8 [facility] 2022-01-04 2022-01-04 Orders Magdiel, 1.2.840.1 [id number] Univers 00:00:00 00:00:00 Only Pamela C 00823.1.1 ity of 3.412.2.7 [place] .3.991611 MD Duvall8 [facility] 2022-01-01 2022-01-01 Orders Demarcus 1.2.840.1 [id number] Univers 00:00:00 00:00:00 Only Kern, 98648.1.1 ity of Matthew 3.412.2.7 [place] .3.918132 MD Polo [facility] 2022-01-01 2022-01-01 Orders Demarcus 1.2.840.1 [id number] Univers 00:00:00 00:00:00 Only Kern, 37874.1.1 ity of Matthew 3.412.2.7 [place] .3.823415 MD Duvall8 [facility] 2021-12-31 2021-12-31 Orders Demarcus 1.2.840.1 [id number] Univers 00:00:00 00:00:00 Only Kern, 40894.1.1 ity of Matthew 3.412.2.7 [place] .3.430558 MD Polo [facility] 2021-12-31 2021-12-31 Vitor Tracy 1.2.840.1 [id number] Univers 00:00:00 00:00:00 Only Erlin 03964.1.1 ity of Matthew 3.412.2.7 [place] .3.707481 MD Polo [facility] 2021-12-30 2021-12-30 Li Jean Baptiste 1.2.840.1 [id number] [id number] Univers 00:00:00 00:00:00 Only 97978.1.1 ity of 3.412.2.7 [place] .3.416589 MD Polo [facility] 2021-12-30 2021-12-30 Li Jean Baptiste 1.2.840.1 [id number] [id number] Univers 00:00:00 00:00:00 Only 51409.1.1 ity of 3.412.2.7 [place] .3Jadiel882129 MD Polo [facility] 2021-12-29 2021-12-29 [facility], 1.2.840.1 [id number] [id number] Univers 10:15:36 23:59:00 Yann Charles 22893.1.1 it y of 3.412.2.7 [place] .3.484269 MD Polo [facility] 2021-12-29 2021-12-29 [facility], 1.2.840.1 [id number] Univers 10:15:36 23:59:00 Encounter Ruth 23241.1.1 it y of 3.412.2.7 [place] .3.176537 MD Duvall8 [facility] 2021-12-29 2021-12-29 [facility], 1.2.840.1 [id number] Univers 09:28:35 10:14:00 Encounter Ruth 84741.1.1 it y of 3.412.2.7 [place] .3.367963 MD Duvall8 [facility] 2021-12-29 2021-12-29 [facility], 1.2.840.1 [id number] Univers 09:28:35 10:14:00 Encounter Ruth 68273.1.1 it y of 3.412.2.7 [place] .3.298505 MD Polo [facility] 2021-12-29 2021-12-29 Documentat Mars, 1.2.840.1 [id number] Univers 00:00:00 00:00:00 ion Ruth 07710.1.1 ity of 3.412.2.7 [place] .3.494629 MD Polo [facility] 2021-12-29 2021-12-29 Vitor Cole 1.2.840.1 [id number] Univers 00:00:00 00:00:00 Only Warren 29893.1.1 ity of 3.412.2.7 [place] .3.429092 MD Polo [facility] 2021-12-29 2021-12-29 Documentat Demarcus 1.2.840.1 [id number] Univers 00:00:00 00:00:00 ion Erlin 33692.1.1 ity of Matthew 3.412.2.7 [place] .3.819076 MD Polo [facility] 2021-12-29 2021-12-29 Documentat Shelly, 1.2.840.1 [id number] Univers 00:00:00 00:00:00 hemant Charles 43782.1.1 ity of 3.412.2.7 [place] .3.008264 MD Duvall8 [facility] 2021-12-29 2021-12-29 Vitor Espino, 1.2.840.1 [id number] Univers 00:00:00 00:00:00 Only Emily 57068.1.1 ity of [place] 3.412.2.7 [place] .3.647374 MD Duvall8 [facility] 2021-12-29 2021-12-29 Travel 1.2.840.1 1.2.537.391 9090 [id number] Univers 00:00:00 00:00:00 87346.1.1 350.1.13.41 ity of 3.412.2.7 2.2.7.3.698 [place] .3.893453 084.8 MD Duvall8 [facility] 2021-12-29 2021-12-29 Documentat Shelly, 1.2.840.1 [id number] 1 [id number] Univers 00:00:00 00:00:00 hemant Charles 30980.1.1 ity of 3.412.2.7 [place] .3.439124 MD Duvall8 [facility] 2021-12-29 2021-12-29 Vitor Cole 1.2.840.1 [id number] Univers 00:00:00 00:00:00 Only Warren 91144.1.1 ity of 3.412.2.7 [place] .3.461595 MD Duvall8 [facility] 2021-12-29 2021-12-29 Documentat Demarcus 1.2.840.1 [id number] Univers 00:00:00 00:00:00 hemant Kern 19306.1.1 ity of Matthew 3.412.2.7 [place] .3.554382 MD Duvall8 [facility] 2021-12-29 2021-12-29 Documentat O`Crews, 1.2.840.1 [id number] 1 [id number] Univers 00:00:00 00:00:00 ion Ruth 33265.1.1 ity of 3.412.2.7 [place] .3.214330 MD Polo [facility] 2021-12-29 2021-12-29 Vitor Espino, 1.2.840.1 [id number] Univers 00:00:00 00:00:00 Only Emily 91878.1.1 ity of [place] 3.412.2.7 [place] .3.208784 MD Polo [facility] 2021-12-29 2021-12-29 Travel 1.2.840.1 1.2.327.818 1039 [id number] Univers 00:00:00 00:00:00 14566.1.1 350.1.13.41 ity of 3.412.2.7 2.2[place]7.3.698 [place] .3.439374 084.8 MD Polo [facility] 2021-12-28 2021-12-28 [facility], 1.2.840.1 [id number] Univers 12:32:00 23:59:00 Encounter Adan 31031.1.1 it y of Will 3.412.2.7 [place] .3.201816 MD Polo [facility] 2021-12-28 2021-12-28 [facility], 1.2.840.1 [id number] Univers 12:32:00 23:59:00 Encounter Adan 72121.1.1 it y of Will 3.412.2.7 [place] .3.727654 MD Polo [facility] 2021-12-25 2021-12-25 Vitor Schultz, 1.2.840.1 [id number] Univers 00:00:00 00:00:00 Only Alexia Ji 25086.1.1 ity of 3.412.2.7 [place] .3.739802 MD Polo [facility] 2021-12-25 2021-12-25 Orders Shelly, 1.2.840.1 [id number] [id number] Univers 00:00:00 00:00:00 Only Ruth 31128.1.1 ity of 3.412.2.7 [place] .3.096407 MD Duvall8 [facility] 2021-12-25 2021-12-25 Orders Shelly, 1.2.840.1 [id number] [id number] Univers 00:00:00 00:00:00 Only Ruth 44207.1.1 ity of 3.412.2.7 [place] .3.406012 MD Duvall8 [facility] 2021-12-25 2021-12-25 Orders Antoine, 1.2.840.1 [id number] Univers 00:00:00 00:00:00 Only Alexia Ji 54424.1.1 ity of 3.412.2.7 [place] .3.579513 MD Polo [facility] 2021-12-25 2021-12-25 Orders Shelly, 1.2.840.1 [id number] [id number] Univers 00:00:00 00:00:00 Only Ruth 02232.1.1 ity of 3.412.2.7 [place] .3.769236 MD Duvall8 [facility] 2021-12-25 2021-12-25 Orders Shelly, 1.2.840.1 [id number] [id number] Univers 00:00:00 00:00:00 Only Ruth 03195.1.1 ity of 3.412.2.7 [place] .3Jadiel228668 MD Duvall8 [facility] 2021-12-24 2021-12-24 Office Michael 1.2.840.1 [id number] Univers 12:40:00 13:12:41 Visit Carter 40537.1.1 ity of 3.412.2.7 [place] .3Jadiel852331 MD Duvall8 [facility] 2021-12-24 2021-12-24 Office EL Michael, 1.2.840.1 [id number] 10 [id number] Univers 12:40:00 13:12:41 Visit Carter 31737.1.1 ity of 3.412.2.7 [place] .3.536162 MD Polo [facility] 2021-12-24 2021-12-24 Travel 1.2.840.1 1.2.981.222 9926 [id number] Univers 00:00:00 00:00:00 31525.1.1 350.1.13.41 ity of 3.412.2.7 2.2[place]7.3.698 [place] .3.704318 084.8 MD Polo [facility] 2021-12-24 2021-12-24 Travel 1.2.840.1 1.2.059.821 9122 [id number] Univers 00:00:00 00:00:00 28201.1.1 350.1.13.41 ity of 3.412.2.7 2.2.7.3.698 [place] .3.366936 08Mira Polo [facility] 2021-12-23 2021-12-23 [facility] Zarina Chuy F 1.2.840.1 [id number] Univers 14:01:06 23:59:00 Encounter Ruth Lim 84486.1.1 ity of 3.412.2.7 [place] .3.198292 MD Polo [facility] 2021-12-23 2021-12-23 [facility] ZarinaChuy holliday 1.2.840.1 [id number] Univers 14:01:06 23:59:00 Encounter Ruth Lim 65344.1.1 ity of 3.412.2.7 [place] .3.794143 MD Polo [facility] 2021-12-23 2021-12-23 [facility] 1.2.840.1 [id number] [id number] Univers 15:30:00 18:00:00 Procedure Chuy F 20119.1.1 ity of 3.412.2.7 [place] .3.753758 MD Polo [facility] 2021-12-23 2021-12-23 Ancillary EL Zarina, 1.2.840.1 [id number] Univers 15:30:00 18:00:00 Procedure Chuy F 62789.1.1 ity of 3.412.2.7 [place] .3.395245 MD Polo [facility] 2021-12-23 2021-12-23 [facility], 1.2.840.1 [id number] Univers 12:45:00 14:00:00 Encounter Warren 08232.1.1 it y of 3.412.2.7 [place] .3.614584Rosita Polo [facility] 2021-12-23 2021-12-23 [facility], 1.2.840.1 [id number] Univers 12:45:00 14:00:00 Encounter Warren 67897.1.1 it y of 3.412.2.7 [place] .3.168905Rosita Polo [facility] [place] 2021-12-23 2021-12-23 Office Li Currie 1.2.840.1 [id number] Univers 10:20:00 11:51:22 Visit 84765.1.1 ity of 3.412.2.7 [place] .3Britany casey [facility] [place] 2021-12-23 2021-12-23 Office Li Tripp 1.2.840.1 [id number] Univers 10:20:00 11:51:22 Visit 61828.1.1 ity of 3.412.2.7 [place] .3Livier425297Rosita Polo [facility] [place] 2021-12-23 2021-12-23 [facility] Antoine, 1.2.840.1 [id number] Univers 00:00:00 00:00:00 Only Alexia Ji 29788.1.1 ity of 3.412.2.7 [place] .3Livier311611 MD .8 [facility] 2021-12-23 2021-12-23 Orders Sathya, 1.2.840.1 [id number] Univers 00:00:00 00:00:00 Only [place] 86749.1.1 ity of 3.412.2.7 [place] .3.401915 MD Polo [facility] 2021-12-23 2021-12-23 Travel 1.2.840.1 1.2.741.069 [id number] Univers 00:00:00 00:00:00 72303.1.1 350.1.13.41 ity of 3.412.2.7 2.[place]7.3.698 [place] .3.605061 084.Sindy Polo [facility] 2021-12-23 2021-12-23 Orders Antoine, 1.2.840.1 [id number] Univers 00:00:00 00:00:00 Only Alexia Ji 99265.1.1 ity of 3.412.2.7 [place] .3.270360 MD Polo [facility] 2021-12-23 2021-12-23 Orders Sathya, 1.2.840.1 [id number] Univers 00:00:00 00:00:00 Only [place] 36240.1.1 ity of 3.412.2.7 [place] .3.014668 MD Polo [facility] 2021-12-23 2021-12-23 Travel 1.2.840.1 1.2.674.272 [id number] Univers 00:00:00 00:00:00 64533.1.1 350.1.13.41 ity of 3.412.2.[place].698 [place]3.727[place] 084.8 MD Polo [facility] 2021-12-22 2021-12-22 Ancillary Zarina, 1.2.840.1 [id number] Univers 19:15:00 21:00:00 Procedure Chuy Vallecillo 50055.1.1 ity of 3.412.2.7 [place] .3.509351 MD Duvall8 [facility] 2021-12-22 2021-12-22 Ancillary CHIKA Srinivasan, 1.2.840.1 [id number] [id number] Univers 19:15:00 21:00:00 Procedure Chuy Vallecillo 44269.1.1 ity of 3.412.2.7 [place] .3.213038 MD Duvall8 [facility] 2021-12-22 2021-12-22 Travel 1.2.840.1 1.2.056.500 4704 [id number] Univers 00:00:00 00:00:00 63907.1.1 350.1.13.41 ity of 3.412.2.[place].3.698 [place] .3.416101 084.8 MD Polo [facility] 2021-12-22 2021-12-22 Travel 1.2.840.1 1.2.867.784 [id number] Univers 00:00:00 00:00:00 72685.1.1 350.1.13.41 ity of 3.412.2.[place].3.698 [place] .3.218038 084.8 MD Polo [facility] 2021-12-17 2021-12-17 Outpatient CHIKA CARDOZA SUJIT MDA [id number] 13:27:51 13:27:51 SILVER casey 2021-12-17 2021-12-17 Outpatient CHIKA CARDOZA SUJIT MDA [id number] 13:27:44 13:27:44 SILVER casey 2021-12-17 2021-12-17 Telephone Rigoberto, 1.2.840.1 [id number] Univers 00:00:00 00:00:00 Baldemar 07951.1.1 ity of 3.412.2.7 [place] .3.781393 MD Polo [facility] 2021-12-17 2021-12-17 Telephone Rigoberto, 1.2.840.1 [id number] [facility] 00:00:00 00:00:00 Baldemar 32794.1.1 ity of 3.412.2.7 [place] .3Jadiel074407 MD Duvall8 [facility] 2021-12-15 2021-12-15 [facility], 1.2.840.1 [id number] Univers 09:07:00 16:35:00 Encounter Chuy Ruth Ann 71828.1.1 ity of 3.412.2.7 [place] .3Jadiel907702 MD Duvall8 [facility] 2021-12-15 2021-12-15 [facility], 1.2.840.1 [id number] Univers 09:07:00 16:35:00 Encounter Chuy Vallecillo 63832.1.1 ity of 3.412.2.7 [place] .3Livier088776 MD Duvall8 [facility] 2021-12-15 2021-12-15 Anesthesia Soto Taveras 1.2.840.1 [id number] Univers 14:10:00 15:24:00 Event Lui Mendoza 67237.1.1 it y of 3.412.2.7 [place] .3Jadiel139937 MD Duvall8 [facility] 2021-12-15 2021-12-15 Anesthesia [facility]aver[facility] 1.2.840.1 [id number] Univers 14:10:00 15:24:00 Event Lui Mendoza 80332.1.1 it y of 3.412.2.7 [place] .3Jadiel944638Rosita Duvall8 [facility] 2021-12-15 2021-12-15 Surgery [facility], 1.2.840.1 [id number] Univers 10:00:00 11:30:00 Chuy Vallecillo 13563.1.1 it y of 3.412.2.7 [place] .3Jadiel055643 MD Duvall8 [facility] 2021-12-15 2021-12-15 Surgery [facility], 1.2.840.1 [id number] Univers 10:00:00 11:30:00 Chuy Vallecillo 55126.1.1 it y of 3.412.2.7 [place] .3.123593 MD Polo [facility] 2021-12-15 2021-12-15 Orders Caleb, 1.2.840.1 [id number] Univers 00:00:00 00:00:00 Only Celia 74847.1.1 ity of 3.412.2.7 [place] .3.571927 MD Polo [facility] 2021-12-15 2021-12-15 Orders Carpenter, 1.2.840.1 [id number] Univers 00:00:00 00:00:00 Only Christopher 03005.1.1 ity of 3.412.2.7 [place] .3.389358 MD Duvall8 [facility] 2021-12-15 2021-12-15 Travel 1.2.840.1 1.2.770.345 [id number] [id number] Univers 00:00:00 00:00:00 89125.1.1 350.1.13.41 ity of 3.412.2.7 [place]7.3.698 [place] .3.755986 084.8 MD Polo [facility] 2021-12-15 2021-12-15 Vitor Ellis, 1.2.840.1 [id number] Univers 00:00:00 00:00:00 Only Celia 58582.1.1 ity of 3.412.2.7 [place] .3.489741 MD Polo [facility] 2021-12-15 2021-12-15 Orders Carpenter, 1.2.840.1 [id number] Univers 00:00:00 00:00:00 Only Christopher 15757.1.1 ity of 3.412.2.7 [place] .3.054691 MD Polo [facility] 2021-12-15 2021-12-15 Travel 1.2.840.1 1.2.289.836 [id number] [id number] Univers 00:00:00 00:00:00 35560.1.1 350.1.13.41 ity of 3.412.2.7 [place].3.698 [place] .3.440336 084.8 .8 [facility] 2021-12-14 2021-12-14 [facility] 1.2.840.1 [id number] 1 [id number] Univers 23:59:59 23:59:59 Event Yareli 70514.1.1 ity of 3.412.2.7 [place] .3.604889 .8 [facility] 2021-12-14 2021-12-14 Anesthesia [facility], 1.2.840.1 [id number] Univers 23:59:59 23:59:59 Event Yareli 78699.1.1 ity of 3.412.2.7 [place] .3.443846 MD Duvall8 [facility] 2021-12-14 2021-12-14 [facility] Jose A Askew 1.2.840.1 [id number] 10 [id number] Univers 14:03:54 23:59:00 Encounter 40345.1.1 it y of 3.412.2.7 [place] .3.899832 .8 [facility] [place] 2021-12-14 2021-12-14 [facility] Jose A Hunt 1.2.840.1 [id number] Univers 14:03:54 23:59:00 Encounter 02399.1.1 it y of 3.412.2.7 [place] .3.233499 MD Polo [facility] 2021-12-14 2021-12-14 NATALI Cardoza 1.2.840.1 [id number] Univers 16:30:00 17:00:00 Georgiana Pinon 24577.1.1 ity of ts 3.412.2.7 [place] .3.093813 MD Polo [facility] [place] 2021-12-14 2021-12-14 NATALI Cardoza 1.2.840.1 [id number] Univers 16:30:00 17:00:00 Georgiana Pinon 91117.1.1 ity of ts 3.412.2.7 [place] .3.317297 MD Polo [facility] [place] 2021-12-14 2021-12-14 Office Jose A Askew 1.2.840.1 [id number] Univers 15:30:00 15:30:00 Visit 17153.1.1 ity of 3.412.2.7 [place] .3.459935 MD Duvall8 [facility] 2021-12-14 2021-12-14 Office Jose A Hunt 1.2.840.1 [id number] Univers 15:30:00 15:30:00 Visit 63294.1.1 ity of 3.412.2.7 [place] .3.014895 MD Duvall8 [facility] 2021-12-14 2021-12-14 [facility] Jose A Askew 1.2.840.1 [id number] 10 [id number] Univers 14:00:00 14:02:00 Encounter 72097.1.1 it y of 3.412.2.7 [place] .3.291144 .8 [facility] 2021-12-14 2021-12-14 Hospital Jose A Hunt 1.2.840.1 [id number] Univers 14:00:00 14:02:00 Encounter 10248.1.1 it y of 3.412.2.7 [place] .3.210474 MD Polo [facility] 2021-12-14 2021-12-14 Clinical Silver Cardoza 1.2.840.1 [id number] Univers 08:00:00 08:00:00 Support Peter Dennis 46973.1.1 ity of 3.412.2.7 [place] .3Jadiel012318 MD Polo [facility] [place] 2021-12-14 2021-12-14 Clinical Silver Mendez 1.2.840.1 [id number] Univers 08:00:00 08:00:00 Support Peter Dennis 65562.1.1 ity of 3.412.2.7 [place] .3Jadiel500541 MD Polo [facility] 2021-12-14 2021-12-14 Documentat Ussin, 1.2.840.1 [id number] Univers 00:00:00 00:00:00 hemant Sanz 66336.1.1 ity of 3.412.2.7 [place] .3.713325 MD Polo [facility] 2021-12-14 2021-12-14 Travel 1.2.840.1 1.2.921.031 0447 [id number] Univers 00:00:00 00:00:00 27333.1.1 350.1.13.41 ity of 3.412.2.7 2.[place]7.3.698 [place] .3.547340 084.8 MD Polo [facility] 2021-12-14 2021-12-14 Documentat Ussin, 1.2.840.1 [id number] Univers 00:00:00 00:00:00 hemant Jeff Sanz 45976.1.1 ity of 3.412.2.7 [place] .3.204938 MD Polo [facility] 2021-12-14 2021-12-14 Travel 1.2.840.1 1.2.547.214 [id number] Univers 00:00:00 00:00:00 59874.1.1 350.1.13.41 ity of 3.412.2.7 2.[place]7.3.698 [place] .3.293922 084.8 MD Polo [facility] 2021-12-11 2021-12-11 [facility] 1.2.840.1 [id number] Univers 17:15:00 23:59:00 Encounter Silver Plummer50.1.1 i ty of 3.412.2.7 [place] .3.331588 MD Polo [facility] 2021-12-11 2021-12-11 [facility], 1.2.840.1 [id number] Univers 17:15:00 23:59:00 Encounter Silver Plummer50.1.1 i ty of 3.412.2.7 [place] .3.656009 MD Polo [facility] 2021-12-11 2021-12-11 [facility], 1.2.840.1 [id number] Univers 16:00:00 17:14:00 Encounter Silver Pinon 09592.1.1 i ty of 3.412.2.7 [place] .3.475661 MD Duvall8 [facility] 2021-12-11 2021-12-11 [facility], 1.2.840.1 [id number] Univers 16:00:00 17:14:00 Encounter Silver Pinon 74672.1.1 i ty of 3.412.2.7 [place] .3.603302 MD Polo [facility] 2021-12-11 2021-12-11 Travel 1.2.840.1 1.2.787.382 0405 [id number] Univers 00:00:00 00:00:00 42822.1.1 350.1.13.41 ity of 3.412.2.7 2.[place]7.3.698 [place] .3.332072 084.8 MD Polo [facility] 2021-12-11 2021-12-11 Travel 1.2.840.1 1.2.760.977 [id number] Univers 00:00:00 00:00:00 49761.1.1 350.1.13.41 ity of 3.412.2.7 [place]7.3.698 [place] .3.187355 084.8 MD Polo [facility] 2021-12-09 2021-12-09 Prep for Ronyy, 1.2.840.1 [id number] Univers 00:00:00 00:00:00 Surgery Noni 18451.1.1 ity of 3.412.2.7 [place] .3.882760 MD Polo [facility] 2021-12-09 2021-12-09 Prep for Mackenney, 1.2.840.1 [id number] Univers 00:00:00 00:00:00 Surgery Noni 51560.1.1 ity of 3.412.2.7 [place] .3.411276 MD Duvall8 [facility] 2021-12-08 2021-12-08 [facility], 1.2.840.1 [id number] Univers 17:28:19 23:59:00 Encounter Silver Plummer50.1.1 i ty of 3.412.2.7 [place] .3Jadiel356479 MD Duvall8 [facility] 2021-12-08 2021-12-08 [facility], 1.2.840.1 [id number] Univers 17:28:19 23:59:00 Encounter Silver Plummer50.1.1 i ty of 3.412.2.7 [place] .3.913976 MD Duvall8 [facility] 2021-12-08 2021-12-08 [facility] Sabasjewel, 1.2.840.1 [id number] [id number] Univers 20:10:00 20:15:00 Procedure Silver Pinon 08627.1.1 i ty of 3.412.2.7 [place] .3Jadiel834919 MD Duvall8 [facility] 2021-12-08 2021-12-08 [facility] Sabasjewel, 1.2.840.1 [id number] 1091 [id number] Univers 20:10:00 20:15:00 Procedure Silver Pinon 43008.1.1 i ty of 3.412.2.7 [place] .3Jadiel824340 MD Duvall8 [facility] 2021-12-08 2021-12-08 [facility] Sabasjewel, 1.2.840.1 [id number] Univers 20:05:00 20:10:00 Procedure Silver Pinon 05978.1.1 i ty of 3.412.2.7 [place] .3Jadiel557271 MD Duvall8 [facility] 2021-12-08 2021-12-08 [facility] Sony, 1.2.840.1 [id number] [id number] Univers 20:05:00 20:10:00 Procedure Silver Pinon 99349.1.1 i ty of 3.412.2.7 [place] .3.052367 MD Duvall8 [facility] 2021-12-08 2021-12-08 Ancillary Ostrin, 1.2.840.1 [id number] [id number] Univers 20:00:00 20:05:00 Procedure Silver Pinon 43033.1.1 i ty of 3.412.2.7 [place] .3.153589 .8 [facility] 2021-12-08 2021-12-08 Ancillary EL Ostrin, 1.2.840.1 [id number] Univers 20:00:00 20:05:00 Procedure Silver Pinon 60546.1.1 i ty of 3.412.2.7 [place] .3.601775 MD Duvall8 [facility] 2021-12-08 2021-12-08 Office Ostrin, 1.2.840.1 [id number] Univers 15:00:00 17:28:59 Visit Silver Pinon 84747.1.1 ity of 3.412.2.7 [place] .3.442925 MD Duvall8 [facility] 2021-12-08 2021-12-08 Office EL Ostrin, 1.2.840.1 [id number] Univers 15:00:00 17:28:59 Visit Silver Pinon 87496.1.1 ity of 3.412.2.7 [place] .3.389477 MD Duvall8 [facility] 2021-12-08 2021-12-08 NPR Ostrin, 1.2.840.1 [id number] Univers 14:00:00 14:10:17 Silver Pinon 63459.1.1 ity of 3.412.2.7 [place] .3.287459 MD Duvall8 [facility] 2021-12-08 2021-12-08 NPR EL Ostrin, 1.2.840.1 [id number] Univers 14:00:00 14:10:17 Silver J. 80082.1.1 ity of 3.412.2.7 [place] .3.456084 MD Duvall8 [facility] 2021-12-08 2021-12-08 Travel 1.2.840.1 1.2.516.481 [id number] Univers 00:00:00 00:00:00 53414.1.1 350.1.13.41 ity of 3.412.2.7 [place]7.3.698 [place] .3.282981 084.8 .8 [facility] 2021-12-08 2021-12-08 Travel 1.2.840.1 1.2.329.197 1499 [id number] Univers 00:00:00 00:00:00 94551.1.1 350.1.13.41 ity of 3.412.2.7 [place]7.3.698 [place] .3.020808 084.8 MD Duvall8 [facility] 2021-07-15 2021-07-15 Outpatient R [facility] [id number] Univers 09:40:00 23:59:00 WONDIFUL ity o [facility] 2021-07-15 2021-07-15 [facility] 1.2.548.647 [id number] Univers 09:40:00 23:59:00 Encounter Wondiful [facility] 350.1.13.10 ity of [place] 4.2.7.2.686 Ghulam as CHANCE?BLEA [id number] [facility] [address] MEDICAL OFFICE BUILDING 2021-07-15 2021-07-15 Outpatient R [facility] [id number] Univers 09:00:00 09:54:40 WONDIFUL ity o f [facility] 2021-07-15 2021-07-15 Office [facility] 1.2.840.114 [id number] Univers 08:56:32 09:54:40 Visit Wondiful A HEALTH 350.1.13.10 ity of [place] 4.2.7.2.686 Ghulam as CHANCE?BLEA [id number] Az lgal [address] MEDICAL OFFICE BUILDING 2021-07-15 2021-07-15 Orders Doctor YARELI 1.2.840.114 [id number] Univers 00:00:00 00:00:00 Only Unassigned, SHABBIR 350.1.13.10 ity of [place] [facility] 4.2.7.2.686 Ghulam as [id number] [address] 2021-07-14 2021-07-14 [facility] 1.2.840.114 [id number] Univers 00:00:00 00:00:00 Wondiful A HEALTH 350.1.13.10 ity of [place] 4.2.7.2.686 Ghulam as CHANCE?BLEA [id number] Az hetal [address] 2021-04-19 2021-04-19 Outpatient R UNKNOWN, [facility] [id number] Univers 19:30:00 19:30:00 ATTENDING [facility] 2021-04-17 2021-04-17 Outpatient R UNKNOWN, [facility] [id number] Univers 13:30:00 13:30:00 ATTENDING [facility] 2021-04-11 2021-04-11 Outpatient R UNKNOWN, [facility] [id number] Univers 17:20:00 17:20:00 ATTENDING [facility] 2021-04-11 2021-04-11 Laboratory Lab, Adc Fam Pob I [facility] 1.2. 840.114 [id number] Univers 11:17:29 11:37:29 Only Unknown, Attending Health 350.1.13.10 ity of [place] 4.2.7.2.686 Ghulam as Professio [id number] Az hetal [address] Office Building [facility] 2021-04-11 2021-04-11 Letter Doctor YARELI 1.2.840.114 [id number] Univers 00:00:00 00:00:00 (Out) Unassigned, SHABBIR 350.1.13.10 ity of [place] [facility] 4.2.7.2.686 Ghulam as [id number] [address] 2020-11-15 2020-11-15 Outpatient [facility] [id number] Univers 13:05:00 13:05:[facility] 2020-10-25 2020-10-25 Outpatient [facility] [id number] Univers 13:05:00 13:05:00 [facility] Results Test Description Test Time Test Comments Results Result Comments Source T3 2022-08-04 16:06:51 Test Item Value Reference Range Interpretation Comme nts T3 Total (test code = 3053-6) 105 ng/dL 80-200 [facility] [id number] 15:47:56 Test Item Value Reference Range Interpretation Comments Phosphorus (test code = 2777-1) 4.2 mg/dL 2.5-4.5 [facility] [id number] 15:47:55 Test Item Value Reference Range Interpretation Comments Calcium Lvl (test code = 72214-5) 10.5 mg/dL 8.4-10.2 H Lab Interpretation (test code = Abnormal 23483-3) [facility] Center[facility] [id number] 15:47:54 Test Item Value Reference Range Interpretation Comments Albumin Lvl (test code 5.2 See_Comment [Aut omated message] The = 175-) system which ge nerated this result tra nsmitted reference range : 3.5 - 5.2 gm/dL. The refe rence range was not used to interpret this result as normal/abnormal . [facility] CenterAspartate Aminotransferase 2022-08-04 15:47:53 Test Item Value Reference Range Interpretation Comments AST (test code = 18 U/L See_Comment [Automated message] The 1920-03) system which ge nerated this result transmit milana reference range : <=32. The reference range was not used to interpr et this result as kirstin l/abnormal. [facility] CenterElectrolyte [id number] 15:47:52 Test Item Value Reference Range Interpretation Comments Sodium Lvl (test code = 128 See_Comment L [Au tomated message] 6671-2) The system whic h generated this result transmitted ref erence range: 136 - 14 5 mEq/L. The refe rence range was not u sed to interpret this result as normal/abnor mal. Potassium Lvl (test code 3.7 See_Comment [A utomated message] = 6473-3) The system Wishery generated this result transmitted ref erence range: 3.5 - 5. 1 mEq/L. The refe rence range was not u sed to interpret this result as normal/abnor mal. Chloride (test code = 88 See_Comment L [Auto mated message] ) The system Wishery generated this result transmitted ref erence range: 98 - 107 mEq/L. The refe rence range was not u sed to interpret this result as normal/abnor mal. CO2 (test code = 2028-04) 26 See_Comment [A utomated message] The system Wishery generated this result transmitted ref erence range: 22 - 29 mEq/L. The reference r gilbert was not used to interpret this result as normal/abnor mal. Anion Gap (test code = 14 See_Comment [Aut omated message] 44897-8) The system Wishery generated this result transmitted ref erence range: 4 - 14 m Eq/L. The reference r gilbert was not used to interpret this result as normal/abnor mal. Lab Interpretation (test Abnormal code = 03391-3) [facility] Center[facility]ucose [id number] 15:47:50 Test Item Value Reference Range Interpretation Comments Glucose Level (test code 238 mg/dL 70-99 H Eff ective 03/24/16, = 2345-7) the glucose reference inter vals have been updat ed based on Americ an Diabetes Associ ation guidelines (Standards of Medical Care in Diabetes 2016. Diabetes Care 2 016; 39: S13-S22).Fa sting blood glucose:Normal: 70-99 mg/dLImpa ired fasting glucose (increased risk for diabetes or pre-diabetes): 100-125 mg/dLDiabetes mellitus: >/=12 6 mg/dL Random bl ood glucose:Normal: 70-199 mg/dLNot e: Random glucose >100 mg/dL is associ ated with increased risk for diabetes Lab Interpretation (test Abnormal code = 88684-4) [facility] CenterFree [id number] 15:47:49 Test Item Value Reference Range Interpretation Comments T4 Free (test code = 3024-7) 1.34 ng/dL 0.93-1.70 [facility] CenterFractionated [id number] 15:47:48Bili Total<0.3<=1.2 mg/dLUT [facility]UnUniversity Medical CenterGlomerular Filtration [id number] 15:47:47 Test Item Value Reference Range Interpretation Comments eGFR (test code = 69 See_Comment The eGFRcr is calculated with [address]) the 2020 CKD-EP I creatinine equation using creatinine, patient's age, and sex for adults 18 years of age and older. Other fa ctors, especially musc le mass, may affect accuracy and need to be considered.A ccording to the Kidney Dise ase: Improving Global Outcomes (KDIGO) CKD Work Group 2012 Clinical Practice Guidel ine, chronic kidney disease (CKD) is defined as the abnormalities of kidney struc ture or function, prese nt for more than 3 months, with implications fo r health. CKD should be class ified by cause, GFR robert gory, and albuminuria cat egory. KDIGO guidelines prov emerald the following GFR c ategoriesStage Description GFR mL/min/1.73 m2G1* Normal or high >= 90G2* Mildly decrease d 60-89G3a Mildly to moder ately decreased 45-59 G3b Moderately to severely dec reased 30-44G4 Severely decrea sed 15-29G5 Kidney failure <15*In the absence of evid ence of kidney damage, neither G1 nor G2 fulfill criteri a for CKD. [Automated mess age] The system which ge nerated this result transmit milana reference range: >=60 mL/ min/1.73 sq. m. The referenc e range was not used to int erpret this result as kirstin l/abnormal. [facility] CenterTotal [id number] 15:47:46 Test Item Value Reference Range Interpretation Comments Total Protein (test code = 2885-2) 8.1 g/dL 6.4-8.3 [facility] CenterMagnesium2022-12-07 15:47:45 Test Item Value Reference Range Interpretation Comments Magnesium (test code = 75812-1) 2.3 mg/dL 1.6-2.6 [facility] CenterAlkaline [id number] 15:47:44 Test Item Value Reference Range Interpretation Comments Alk Phos (test code = 6768-6) 135 U/L 35-104 H Lab Interpretation (test code = Abnormal 88164-9) [facility] CenterALT2022-12-07 15:47:43 Test Item Value Reference Range Interpretation Comments ALT (test code = 8 U/L See_Comment [Automated message] The 1742-6) system which ge nerated this result transmit milana reference range : <=33. The reference range was not used to interpr et this result as kirstin l/abnormal. [facility].Serum [id number] 15:47:42 Test Item Value Reference Range Interpretation Comments Creatinine (test code = 2160-0) 0.94 mg/dL 0.51-0.95 [facility] CenterBUN2022-12-07 15:47:41 Test Item Value Reference Range Interpretation Comments BUN (test code = 3094-0) 13 mg/dL 6-23 [facility] CenterTSH2022-12-07 15:47:40 Test Item Value Reference Range Interpretation Comments TSH (test code = 1.96 See_Comment [Automated message] The 75636-0) system which ge nerated this result transmit milana reference range : 0.27 - 4.20 mcunit/mL. The reference range was not used to interpr et this result as kirstin l/abnormal. [facility] CenterDifferential2022-12-07 14:51:31 Test Item Value Reference Range Interpretation Comments Neutrophil % (test code = 68.9 % 42.0-66.0 H 770-8) Lymphocyte % (test code = 15.9 % 24.0-44.0 L 736-9) Monocyte % (test code = 8.7 % 2.0-7.0 H 5905-5) Eosinophil % (test code = 5.3 % 1.0-4.0 H 713-8) Basophil % (test code = 0.7 % 0.0-1.0 706-2) IGRE % (test code = 0.5 % 0.0-0.4 H IGRE % c ount 59371-7) includes Metamyelocytes, Myelocytes, and Promyelocytes. Neutrophil Abs (test code 2.85 K/uL 1.70-7.30 = 751-8) Lymphocyte Abs (test code 0.66 K/uL 1.00-4.80 L = 731-0) Monocyte Abs (test code = 0.36 K/uL 0.08-0.70 742-7) Eosinophil Abs (test code 0.22 K/uL 0.04-0.40 = 711-2) Basophil Abs (test code = 0.03 K/uL 0.00-0.10 704-7) IG Abs (test code = 0.02 K/uL 0.00-0.04 17380-5) Lab Interpretation (test Abnormal code = 27772-5) [facility].[id number] 14:51:21 Test Item Value Reference Range Interpretation Comments WBC (test code = 4.1 K/uL 4.0-11.0 6690-2) RBC (test code = 789-8) 4.39 See_Comment [Au tomated message] The system [employer] generated this result transmitted ref erence range: 4.00 - 5 .50 M/uL. The refer ence range was not u sed to interpret this result as normal/abnor mal. Hgb (test code = 718-7) 14.2 See_Comment [Au tomated message] The system [employer] generated this result transmitted ref erence range: 12.0 - 1 6.0 gm/dL. The refe rence range was not u sed to interpret this result as normal/abnor mal. Hct (test code = 42.5 % 37.0-47.0 4544-3) MCV (test code = 787-2) 97 fL 82-98 MCH (test code = 785-6) 32.3 pg 27.0-31.0 H MCHC (test code = 33.4 See_Comment [Automate d message] 786-4) The system Wishery generated this result transmitted ref erence range: 31.0 - 3 6.0 gm/dL. The refe rence range was not u sed to interpret this result as normal/abnor mal. RDW-SD (test code = 47.8 fL 35.1-46.3 H 70607-5) RDW-CV (test code = 13.4 % 12.0-15.5 788-0) Platelet count (test 198 K/uL 140-440 code = 777-3) MPV (test code = 9.4 fL 4.0-10.4 82581-1) INRBC (test code = 0.0 % See_Comment The INRBC (instrument 82528-8) NRBC) value ref lects the enumeration of nucleated red b lood cells contained in a 200uL sampleof whole blood analyzed by the instrument. Thi s value maydiffer from the NRBC value repo rted in a manual differential,wh ich is based on a 100 cell differential. [Automated mess age] The system Wishery generated this result transmitted ref erence range: <=0.0. T he reference range was not used to int erpret this result as normal/abnormal . Lab Interpretation Abnormal (test code = 66830-8) [facility] [id number] 14:18:38 Test Item Value Reference Range Interpretation Comments POC Crea (test 0.9 mg/dL 0.6-1.3 Medications, code = 43097-1) especially h ydroxyurea or supplements, such as ascorbate, c an interfere with test results causing a falsely and significantly h igher result than exp ected. If a problem is suspected with a patient's resul t, a sample should b e sent to the laborato ry for confirmatory te sting. Method descript ion: The i-STAT is a n analyzer used f or in vitro quantific ation of various anal ytes in whole blood. Th e device uses a s fer disposable cart ridge which contains microfabricated sensors, a tatum bration solution, fluid ics system, and a w aste chamber. Each t est cartridge conta ins chemically sens itive biosensors on a silicon chip th at are configured to p erform specific tests. The microfabricated sensors measure analyte concent ration by an electroch emical assay. POC EGFR (test 72 See_Comment The eGFRcr is code = 70002) calculated wit h the 2020 CKD-EPI creatinine equa tion using creatinin e, patient's age, and sex for adults 18 y ears of age and older. Other factors, especi ally muscle mass, ma y affect accuracy and need to be considered.Acco rding to the Kidney D isease: Improving Globa l Outcomes (KDIGO ) CKD Work Group 2012 Clinical Practi ce Guideline, lead fabricator zaheer kidney disease (CKD) is defined as t he abnormalities o f kidney structur e or function, prese nt for more than 3 mon ths, with implicatio ns for health. CKD loraine uld be classified by c ause, GFR category, a nd albuminuria cat egory. KDIGO guideline s provide the fol lowing GFR categoriesS tage Description GFR mL/min/1.73 m2G 1* Normal or high >= 90G2* Mildly de creased 60-89G3a Mildly to moderately decr eased 45-59G3b Modera tely to severely decrea sed 30-44G4 Severel y decreased 15-29 G5 Kidney failure <15*In the absence of evidence of kid jl damage, neither G1 nor G2 fulfill crit eria for CKD. [Autom ated message] The sy stem which generated this result transmit milana reference range : >=60 mL/min/1.73 sq. m. The reference range was not used to int erpret this result as normal/abnormal . POC Clean Dev Yes (test code = 6672) Performing Lab [facility] (test code = [facility] And gaurang [address]) Clinical Lab, [address] [place] [address], [place], [place] [address]; Director Internal Communications: Pilar King MD [facility] Protocol [id number] 2022 21:19:45 Test Item Value Reference Range Interpretation Comments Research Prot (test code = 7189) [id number] [facility] [id number] 2022-05-12 20:26:43 Test Item Value Reference Range Interpretation Comments Research Prot (test 605186 code = 7189) ZAKIA (test code = ZAKIA) Please contact Glynn Corcoran \\Myke\\ Jyothi Malik for blood pickup. [facility] [id number] 16:45:04 Test Item Value Reference Range Interpretation Comments CRP (test code = 5.35 mg/L Reference r anges for HS CRP 06558-1) assay are as fo llows: Reference range s when used to assess cardi ac risk: <1.00 mg/L Low cardiovascular risk 1.00-3.00 mg/L Average cardiovascular risk >3.00 mg/L High cardi ovascular risk.Reference ranges when used to assess inflammatory responses: Less than or equal to 10.00 mg/L. [facility] CenterNT-Pro BNP (In-House)2022-05-12 16:43:55 Test Item Value Reference Range Interpretation Comments NT ProBNP (test code = 549 pg/mL See_Comment H [Aut omated message] 87691-6) The system Wishery generated this result transmit milana reference range : <=125. The refe rence range was not u sed to interpret th is result as normal/abnormal . Lab Interpretation (test Abnormal code = 03263-5) [facility] CenterCKMB2022-09-14 16:43:54CK MB<2.0<=5.3 ng/mLUT [facility]AM[facility] CENTERUnUniversity Medical CenterTroponin T (In-House)2022-05-12 16:24:38 Test Item Value Reference Range Interpretation Comments Troponin T (test code = 20 ng/L See_Comment H < 19 ng/L Suggest 02693-7) retest at 3 to 6 hours later to rule o ut myocardial infa rction >= 19 to <=52 n g/L Possible myocar dial injury. Suggest retest at 3 hours. - a change of < 20 ng/L, r etest at 6 hours - a change of >= 20 ng/L, suggestive of myocardial infa rction > 52 ng/L Sugge stive of myocardial infarction Crit ical value will be r eported when cTnT is > 52 ng/L and only report ed for the first in a series. Hemolyzed speci mens with Hemolysis Index >100 (100 mg/dl or moderate hemoly sis) may cause interferences a nd falsely low res ults. [Automated mess age] The system Wishery generated this result transmitted ref erence range: <=18. Th e reference range was not used to int erpret this result as normal/abnormal . Lab Interpretation Abnormal (test code = 60251-1) [facility] CenterPrepare RBC:ATC, 1 [id number] 22:04:57 Test Item Value Reference Range Interpretation Comments PRBC Product Ready 1 Red Blood Cells (test code = Available - 16282-6) Order Form 03 when ready for product issue. Unit Number (test [id number] code = 7002) Product Code (test [id number] code = 7003) Unit Expiration (test code = 020843) Unit Blood Type 6200 (test code = 7004) Product Code Text RBCIRLR CPD AS1 (test code = 500mL ) Crossmatch Expiration Date (test code = ) Unit Irradiated IRRADIATED (test code = 045523) Dispense Status ISSUED (test code = 7001) Unit Blood Type A Positive (test code = 7005) Product Net Mender .BPAM ____ Location (test ___ code = 574140) ___ ____ [facility] CenterTMP Interpretation Antibody Screen [id number] 21:02:48 Test Item Value Reference Range Interpretation Comments TMP Auto Neg At the present ABSC Interp time, patient (test code = plasma shows no ____SHEN HENSLEY 7535) evidence of RBC JOSSELYN GAMA MD alloantibodies. - [id number] milana by: SHEN GALLEGO MD - [id number] Date/Time: 03.29 16:02 PM CDT Tr anscribed Date/Time: 03.29 16:02 PM CDTElectronical ly Signed By: SHEN GALLEGO MD - [id number] on 03.29 16:02 PM [facility] CenterTMP Interpretation Crossmatch 2022-04-14 21:02:47 Test Item Value Reference Range Interpretation Comments TMP XM Interp RBC units (test code = crossmatched for 7566) transfusion appear ADR SAEID HENSLEY acceptable. MD Kim MARMOLEJO [id number] by: MD Kim GAN [id number] Date/Time: 03.29 16:02 PM CDT Transcribed Yousif e/Time: 04.14.2022 16:0 2 PM CDTElectronical ly Signed By: MD Kim HOFFMAN 143 on 04.14.2022 16:0 2 PM [facility] CenterRBC Product Ready for Net Mender 2022-04-14 21:00:59 Test Item Value Reference Range Interpretation Comments PRBC Product Ready B2 Blood Bank Product is ready for for Net Mender (test mushroom picker on March code = 126304) 2021 16:0 0:55 CDT. [facility] CenterABORh2022-08-17 20:44:27 Test Item Value Reference Range Interpretation Comments ABORh. (test code = 882-1) A POS [facility] CenterClot Expiration [id number] 20:44:23 Test Item Value Reference Range Interpretation Comments T & S Expiration (test code = 04/17/2022 5318) [facility] CenterConfirm [id number] 20:32:07 Test Item Value Reference Range Interpretation Comments ABORh Confirm. (test code = 882-1) A POS [facility] CenterAntibody [id number] 20:23:55 Test Item Value Reference Range Interpretation Comments ABSC. (test code = 890-4) Negative ABSC [facility] CenterUrinalysis with Microscopic 2022-04-14 17:36:02 Test Item Value Reference Interpretation Comments Range UA WBC (test code = 8 See_Comment H [Automa milana 48557-5) message] The system which generated this result transmitted reference range : 0 - 2 /HPF. The reference range was not used to interpret this result as normal/abnormal . UA RBC (test code = 2 See_Comment [Automa milana 32759-5) message] The system which generated this result transmitted reference range : 0 - 2 /HPF. The reference range was not used to interpret this result as normal/abnormal . UA Mucous (test code NOT SEEN Not Seen-Trace = 88439-1) /HPF UA Bacteria (test NOT SEEN NOT SEEN /HPF code = 57183-2) UA Squam Epi (test OCC None-Occasiona code = 09272-9) l /HPF ZAKIA (test code = Some reporting ZAKIA) parameters within the Urinalysis test have changed due to the implementation of new instrumentation in the [facility] [place], allowing greater sensitivity of measurement. Urinalysis results reported by the [facility] using existing instrumentation, as well as Urinalysis testing performed manually or by backup methodology at the [facility] will remain relatively unchanged. New reporting parameters and units will now be reported for all campuses. Lab Interpretation Abnormal (test code = 61071-8) [facility] CenterUrinalysis w/Microscopic if [id number] 17:20:59 Test Item Value Reference Range Interpretation Comments UA Color (test code = 52746-1) Straw Straw-Yellow UA Appear (test code = 5767-9) Clear Clear UA Glucose (test code = 5792-7) NEG NEG mg/dL UA Bili (test code = 5770-3) NEG NEG UA Ketones (test code = 5797-6) NEG NEG mg/dL UA Spec Grav (test code = 5810-7) 1.029 1.003-1.035 UA Blood (test code = 5794-3) NEG NEG UA pH (test code = 5803-2) 6.0 5.0-9.0 UA Protein (test code = 5804-0) NEG NEG mg/dL UA Urobilinogen (test code = 5818-0) NEG NEG UA Nitrite (test code = 5802-4) NEG NEG UA Leuk Est (test code = 5799-2) Small NEG A Lab Interpretation (test code = Abnormal 49915-2) [facility] CenterGlomerular Filtration Rate 2022-03-17 20:11:32 Test Item Value Reference Interpretation Comments Range eGFR-AA (test code = 58 See_Comment L Normal eGFR: >= 60 39370-7) mL/min/1.73 m2N ote: The eGFR is calculated usin g the CKD-EPI equation. The e GFR declines with a ge. eGFR <60 mL/min/1.73 m2 is considered as "decreased". Th is equation should only be used fo r patients 18 and older. Katherinin g to the National dney Foundation's dney Disease Outcome Quality Initiat gume (KDOQI) classification and 2012 Kidney Dis ease Improving Globa l Outcomes (KDIGO ) Clinical Practi ce Guideline, the stage of CKD sh ould be categorized based on estima milana GFR. Stage Description GFR mL/min/1.73 m21 Normal or high GFR >=902 Mildly decreased GFR 60-893a Mildly to moderately decreased GFR 45-593b Moderat mateus to severely decreased GFR 30-444 Severely decreased GFR 15-295 Kidney failure <15 [Automated mess age] The system Wishery generated this result transmit milana reference range : >=60 mL/min/1.7 3 sq. m. The reference range was not used to interpret this result as normal/abnormal . eGFR-AYDE (test code 50 See_Comment L Normal e GFR: >= 60 = 41917-1) mL/min/1.73 m2N ote: The eGFR is calculated usin g the CKD-EPI equation. The e GFR declines with a ge. eGFR <60 mL/min/1.73 m2 is considered as "decreased". Th is equation should only be used fo r patients 18 and older. Katherinin g to the National dney Foundation's dney Disease Outcome Quality Initiat gume (KDOQI) classification and 2012 Kidney Dis ease Improving Globa l Outcomes (KDIGO ) Clinical Practi ce Guideline, the stage of CKD sh ould be categorized based on estima milana GFR. Stage Description GFR mL/min/1.73 m21 Normal or high GFR >=902 Mildly decreased GFR 60-893a Mildly to moderately decreased GFR 45-593b Moderat mateus to severely decreased GFR 30-444 Severely decreased GFR 15-295 Kidney failure <15 [Automated mess age] The system Wishery generated this result transmit milana reference range : >=60 mL/min/1.7 3 sq. m. The reference range was not used to interpret this result as normal/abnormal . ZAKIA (test code = Within 72 hours ZAKIA) prior to chemotherapy infusion. Lab Interpretation Abnormal (test code = 12095-8) [facility] CenterGlucose, [id number] 20:11:31 Test Item Value Reference Range Interpretation Comments Glucose Random 73 mg/dL 70-199 Effective 02/27 03/13, (test code = the glucose 2345-7) reference inter vals have been updat ed based on [place] an Diabetes Association guidelines (Standards of Medical Care in Diabetes 2016. Diabetes Care 2 016; 39: S13-S22).Fastin g blood glucose:Normal: 70-99 mg/dLImpa ired fasting glucose (increased risk for diabetes or pre-diabetes): 100-125 mg/dLDiabetes mellitus: >/=12 6 mg/dL Random bl ood glucose:Normal: 70-199 mg/dLNot e: Random glucose >100 mg/dL is associ ated with increased risk for diabetes ZAKIA (test code Within 72 hours = ZAKIA) prior to each chemotherapy infusion. [facility] CenterGlucose, [id number] 20:11:31 Test Item Value Reference Range Interpretation Comments Glucose Random 73 mg/dL 70-199 Effective 02/27 03/13, (test code = the glucose 2345-7) reference inter vals have been updat ed based on [place] an Diabetes Association guidelines (Standards of Medical Care in Diabetes 2016. Diabetes Care 2 016; 39: S13-S22).Fastin g blood glucose:Normal: 70-99 mg/dLImpa ired fasting glucose (increased risk for diabetes or pre-diabetes): 100-125 mg/dLDiabetes mellitus: >/=12 6 mg/dL Random bl ood glucose:Normal: 70-199 mg/dLNot e: Random glucose >100 mg/dL is associ ated with increased risk for diabetes ZAKIA (test code Within 72 hours = ZAKIA) prior to each chemotherapy infusion. [facility] CenterMagnesium2022-07-20 20:11:30 Test Item Value Reference Range Interpretation Comments Magnesium (test code 1.6 mg/dL 1.6-2.6 = 41313-4) ZAKIA (test code = ZAKIA) Within 72 hours prior to chemotherapy infusion. [facility] CenterElectrolyte [id number] 20:11:29 Test Item Value Reference Range Interpretation [...] Gap (test 13 See_Comment [Automated code = 38809-6) message] The system which generated this result transmit milana reference range : 4 - 14 mEq/L. The reference range was not used to interpret this result as normal/abnormal . ZAKIA (test code = Within 72 hours ZAKIA) prior to chemotherapy infusion. [facility].Serum [id number] 20:11:28 Test Item Value Reference Range Interpretation Comments Creatinine (test code = 1.17 mg/dL 0.51-0.95 H 2160-0) ZAKIA (test code = ZAKIA) Within 72 hours prior to chemotherapy infusion. Lab Interpretation (test Abnormal code = 61427-9) [facility] CenterBUN2022-07-20 20:11:27 Test Item Value Reference Range Interpretation Comments BUN (test code = 16 mg/dL 6-23 3094-0) ZAKIA (test code = Within 72 hours prior to ZAKIA) chemotherapy infusion. [facility] CenterDifferential2022-07-20 19:44:47 Test Item Value Reference Range Interpretation Comments Neutrophil % (test 59.2 % 42.0-66.0 code = 770-8) Lymphocyte % (test 24.4 % 24.0-44.0 code = 736-9) Monocyte % (test code 14.0 % 2.0-7.0 H = 5905-5) Eosinophil % (test 1.2 % 1.0-4.0 code = 713-8) Basophil % (test code 0.6 % 0.0-1.0 = 21723-6) IGRE % (test code = 0.6 % 0.0-0.4 H IGRE % c ount 46587-1) includes Metamyelocytes , Myelocytes, and Promyelocytes. Neutrophil Abs (test 1.02 K/uL 1.70-7.30 L code = 751-8) Lymphocyte Abs (test 0.42 K/uL 1.00-4.80 L code = 731-0) Monocyte Abs (test 0.24 K/uL 0.08-0.70 code = 742-7) Eosinophil Abs (test 0.02 K/uL 0.04-0.40 L code = 711-2) Basophil Abs (test 0.01 K/uL 0.00-0.10 code = 704-7) IG Abs (test code = 0.01 K/uL 0.00-0.04 38956-7) ZAKIA (test code = ZAKIA) Within 72 hours prior to chemotherapy infusion. Lab Interpretation Abnormal (test code = 41883-0) [facility].[id number] 19:44:40 Test Item Value Reference Interpretation Comments [...] (test code = 51.0 fL 35.1-46.3 H 57278-4) RDW-CV (test code = 14.3 % 12.0-15.5 788-0) Platelet count (test 162 K/uL 140-440 code = 777-3) MPV (test code = 10.0 fL 4.0-10.4 98323-1) INRBC (test code = 0.0 % See_Comment The INRBC 27707-4) (instrument NRB C) value reflects the enumerationof [...] infusion. Lab Interpretation Abnormal (test code = 51322-8) [facility] CenterResearch Protocol [id number] 2022-03-12 18:07:02 Test Item Value Reference Range Interpretation Comments Research Prot (test code = 7189) [id number] [facility] CenterTroponin T (In-House)2022-02-24 15:46:56 Test Item Value Reference Range Interpretation Comments Troponin T (test code 15 ng/L See_Comment < 19 n g/L Suggest retest = 11896-8) at 3 to 6 hours later to rule out myocar dial infarction >= 1 9 to <=52 ng/L Possible m yocardial injury. Suggest retest at 3 hours. - a ch gilbert of < 20 ng/L, retest at 6 hours - a carpenter e of >= 20 ng/L, suggestiv e of myocardial inf arction > 52 ng/L Suggest gume of myocardial infa rction Critical value will be reported when c Laura is > 52 ng/L and onl y reported for the first i n a series. Hemolyz ed specimens with Hemolysis Index >100 (100 mg/dl or moderate hemoly sis) may cause interfere nces and falsely low res ults. [Automated mess age] The system which ge nerated this result tra nsmitted reference range : <=18. The reference r gilbert was not used to int erpret this result as normal/abnormal . [facility] CenterBlood [id number] 09:11:36 Test Item Value Reference Range Interpretation Comments Final Report (test No growth code = 8488) Path Review - Culture yield may be Bottle/Isolator affected by sample (test code = 8499) quality, prior treatment, and transportation conditions....The results have been reviewed and electronically signed by Pathologist:Godwin Callahan MD, PhD #[id number] [facility] CenterBlood Wekhmbh6296-01-05 09:11:36 Test Item Value Reference Range Interpretation Comments Final Report (test No growth code = 8488) Path Review - Culture yield may be Bottle/Isolator affected by sample (test code = 8499) quality, prior treatment, and transportation conditions....The results have been reviewed and electronically signed by Pathologist:Godwin Callahan MD, PhD #[id number] [facility] CenterUrinalysis with Microscopic 2022-02-12 18:56:00 Test Item Value Reference Interpretation Comments Range UA WBC (test code = 27 See_Comment H [Automa milana 87054-7) message] The system which generated this result transmitted reference range : 0 - 2 /HPF. The reference range was not used to interpret this result as normal/abnormal . UA RBC (test code = 1 See_Comment [Automa milana 51513-4) message] The system which generated this result transmitted reference range : 0 - 2 /HPF. The reference range was not used to interpret this result as normal/abnormal . UA Mucous (test code NOT SEEN Not Seen-Trace = 00316-8) /HPF UA Bacteria (test OCC NOT SEEN /HPF code = 34134-3) UA Squam Epi (test OCC None-Occasiona code = 49981-7) l /HPF UA Trans Epi (test OCC NOT SEEN /HPF A code = 38987-4) UA Hyal Cast (test 1 See_Comment [Automat ed code = 59783-9) message] The system which generated this result transmitted reference range : 0 - 2 /LPF. The reference range was not used to interpret this result as normal/abnormal . ZAKIA (test code = Some reporting ZAKIA) parameters within the Urinalysis test have changed due to the implementation of new instrumentation in the [facility], allowing greater sensitivity of measurement. Urinalysis results reported by the [facility] using existing instrumentation, as well as Urinalysis testing performed manually or by backup methodology at the [facility] will remain relatively unchanged. New reporting parameters and units will now be reported for all campuses. Lab Interpretation Abnormal (test code = 90955-3) [facility]inoCOVID-19 (SARS-CoV-2)Buuxylhbuwvl-[id number] 17:48:32 Test Item Value Reference Range Interpretation Comments COVID19 Not Detected Not Detected (SARS-CoV-2) (test code = 76096-0) COVID19 SARS Inpatient Indication (test Admission code = 81693) Covid 19 Comment See Note The chika S ARS-CoV-2 (test code = [place] [address]) use on the leyla s Anitha System is a andres l-time RT-PCR assay in tended for the qualita tive detection of SARS-CoV-2 (COV ID-19) viral RNA in nasopharyngeal swabs from either individuals ramona pected of COVID-19 by their healthcare prov ider or from any individual, inc luding individuals wit hout symptoms or oth er reasons to susp ect COVID-19. A fac t sheet for patie nts provided by the [employer] ([employer]) can be rev iewed at: https://www.fda .gov/m edia/640623/chet nload. A fact sheet fo r Health Care pro viders is provided by the [employer] ([employer]) and can be reviewed at: https://www.fda .gov/m edia/526489/chet nload Results must be interpreted wit hin [...] Th is assay has been authorized by [facility] for use only un barbara Emergency Use Authorization ( EUA) in laboratories that have been CLIA-certified to perform moderate-comple xity and high-comple xity tests. The Microbiology Laboratory at [facility], CLIA Accreditation #[id number] and CAP Accreditation #[id number], verif ied the performance characteristics of this assay. Int ernal controls are us ed to monitor all sta ges of the test proces s. [facility] CenterCOVID-19 (SARS-CoV-2)Ovqfszptxcvv-[id number] 17:48:32 Test Item Value Reference Range Interpretation Comments COVID19 Not Detected Not Detected (SARS-CoV-2) (test code = 93397-7) COVID19 SARS Inpatient Indication (test Admission code = 14624) Covid 19 Comment See Note The chika S ARS-CoV-2 (test code = [place] [address]) use on the leyla s Anitha System is a andres l-time RT-PCR assay in tended for the qualita tive detection of SARS-CoV-2 (COV ID-19) viral RNA in nasopharyngeal swabs from either individuals ramona pected of COVID-19 by their healthcare prov ider or from any individual, inc luding individuals wit hout symptoms or oth er reasons to susp ect COVID-19. A fac t sheet for patie nts provided by the zinc [employer] ([employer]) can be rev iewed at: https://www.fda .gov/m edia/546044/chet nload. A fact sheet fo r Health Care pro viders is provided by the [employer] ([employer]) and can be reviewed at: https://www.fda .gov/m edia/747357/chet nload Results must be interpreted wit hin [...] Th is assay has been authorized by [facility] for use only un barbara Emergency Use Authorization ( EUA) in laboratories that have been CLIA-certified to perform moderate-comple xity and high-comple xity tests. The Microbiology Laboratory at [facility], CLIA Accreditation #[id number] and CAP Accreditation #[id number], verif ied the performance characteristics of this assay. Int ernal controls are us ed to monitor all sta ges of the test proces s. [facility] CenterUrinalysis w/Microscopic if [id number] 17:38:27 Test Item Value Reference Range Interpretation Comments UA Color (test code = 35215-5) Straw Straw-Yellow UA Appear (test code = [...] A Lab Interpretation (test code = Abnormal 77972-4) [facility]eraPTT[facility] 16:40:10 Test Item Value Reference Range Interpretation Comments aPTT (test code = 28.2 See_Comment [Automate d message] The 26808-5) system which ge nerated this result transmit milana reference range : 22.8 - 34.2 second(s). The reference range was not used to interpr et this result as kirstin l/abnormal. [facility] 16:40:10 Test Item Value Reference Range Interpretation Comments aPTT (test code = 28.2 See_Comment [Automate d message] The 49292-2) system which ge nerated this result transmit milana reference range : 22.8 - 34.2 second(s). The reference range was not used to interpr et this result as kirstin l/abnormal. [facility] CenterProthrombin Time with ICI1305-09-53 16:40:09 Test Item Value Reference Range Interpretation Comments PT (test code = 12.2 See_Comment [Automated message] The 5902-2) system which ge nerated this result transmit milana reference range : 11.5 - 13.9 second(s). The reference range was not used to interpr et this result as kirstin l/abnormal. INR (test code = 0.97 0.90-1.10 6301-6) [facility] CenterProthrombin Time with [id number] 16:40:09 Test Item Value Reference Range Interpretation Comments PT (test code = 12.2 See_Comment [Automated message] The 5902-2) system which ge nerated this result transmit milana reference range : 11.5 - 13.9 second(s). The reference range was not used to interpr et this result as kirstin l/abnormal. INR (test code = 0.97 0.90-1.10 6301-6) [facility] CenterFractionated Mcksjxflz6943-61-39 16:34:21 Test Item Value Reference Range Interpretation Comments Bili Total (test 0.3 mg/dL See_Comment Indocyanine Green (ICG) code = 1974-) may cause fal sely elevated biliru bin results. Total and direct bilirubin must not be measured from s amples containing indo cyanine green. False el evation of total bilirubin can be seen in patient s with IgG concentrations above 28 g/L. [Automated message] The system Wishery generated this result transmitted ref erence range: [...] 0.0-0.9 Unable t o calculate code = 1970-) Indirect Bili spangler result due to some par ameters are outside rep ortable range [facility] CenterPhosphorus Eowkf5062-90-73 16:34:18 Test Item Value Reference Range Interpretation Comments Phosphorus (test code = 2777-1) 3.3 mg/dL 2.5-4.5 [facility] CenterLDH2022-06-17 16:34:16 Test Item Value Reference Range Interpretation Comments LDH (test code = 186 U/L 135-214 Results gre ater than 1651 85801-0) U/L may not be reliable due to matrix effec t with extended diluti on as it exceeds the man ufacturer's recommended fregoso it. Caution should be exerc ised when interpreting hooker ch values and done in con junction with clinical c ontext. [facility] CenterLDH2022-06-[facility] 16:34:16 Test Item Value Reference Range Interpretation Comments LDH (test code = 186 U/L 135-214 Results gre ater than 1651 56029-8) U/L may not be reliable due to matrix effec t with extended diluti on as it exceeds the man ufacturer's recommended fregoso it. Caution should be exerc ised when interpreting hooker ch values and done in con junction with clinical c ontext. [facility] CenterTotal [id number] 16:34:15 Test Item Value Reference Range Interpretation Comments Total Protein (test code = 2885-2) 6.6 g/dL 6.4-8.3 [facility] CenterCalcium Obyys9961-22-17 16:34:14 Test Item Value Reference Range Interpretation Comments Calcium Lvl (test code = 83540-2) 9.2 mg/dL 8.4-10.2 [facility] CenterAlbumin [id number] 16:34:12 Test Item Value Reference Range Interpretation Comments Albumin Lvl (test code 4.2 See_Comment [Aut omated message] The = 9972) system which ge nerated this result tra nsmitted reference range : 3.5 - 5.2 gm/dL. The refe rence range was not used to interpret this result as normal/abnormal . [facility] CenterAlkaline Dpmdxwkguqy3258-19-31 16:34:11 Test Item Value Reference Range Interpretation Comments Alk Phos (test code = 6768-6) 76 U/L 35-104 [facility] CenterAspartate Aminotransferase 2022-02-12 16:34:10 Test Item Value Reference Range Interpretation Comments AST (test code = 15 U/L See_Comment [Automated message] The 1920-03) system which ge nerated this result transmit milana reference range : <=32. The reference range was not used to interpr et this result as kirstin l/abnormal. [facility] CenterALT2022-06-17 16:34:09 Test Item Value Reference Range Interpretation Comments ALT (test code = 10 U/L See_Comment [Automated message] The 1742-01) system which ge nerated this result transmit milana reference range : <=33. The reference range was not used to interpr et this result as kirstin l/abnormal. [facility] CenterGlucose Bqmvk1463-60-83 16:34:05 Test Item Value Reference Range Interpretation [...] for diabetes or pre-diabetes): 100-125 mg/dLDiabetes mellitus: >/=12 6 mg/dL Random bl ood glucose:Normal: 70-199 mg/dLNot e: Random glucose >100 mg/dL is associ ated with increased risk for diabetes Lab Interpretation (test Abnormal code = 86436-4) [facility] CenterPOC Glucose Egdmln9617-47-38 16:33:31 Test Item Value Reference Interpretation Comments Range POC Glucose (test 101 mg/dL 70-99 H Capillary blood code = 44089-5) samples, e.g . obtained by fingerstick, ma [...] Capillary code = 9554) Performing Lab (test [facility] code = 30616) [facility], [address] [place] [address]; Director Internal Communications: Pilar King MD Lab Interpretation Abnormal (test code = 60229-2) [facility] Glucose Blcktz2717-07-82 16:33:31 Test Item Value Reference Interpretation Comments Range POC Glucose (test 101 mg/dL 70-99 H Capillary blood code = 60283-8) samples, e.g . obtained by fingerstick, ma [...] Capillary code = 9554) Performing Lab (test [facility] code = 64750) [facility], [address] [place] [address]; Director Internal Communications: Pilar King MD Lab Interpretation Abnormal (test code = 05930-2) [facility] CenterAmmonia Fpjqw7503-83-78 16:31:53 Ammonia<1311 - 51 mcmol/[facility]ENTERUnUniversity Medical CenterAmmonia Wnafw3776-65-34 16:31:53 Test Item Value Reference Range Interpretation Comments Ammonia (test code = <13 See_Comment [Autom ated message] The 88652-1) system which ge nerated this result tra nsmitted reference range : 11 - 51 mcmol/L. The re ference range was not u sed to interpret this result as normal/abnormal . [facility] VBG+Bry0289-86-75 16:03:28 Test Item Value Reference Range Interpretation Comments POC VB pH (test code 7.31 7.31-7.41 = 6719) POC VB pCO2 (test 61 See_Comment H [Automate d message] code = 6718) The system whic h generated this result transmitted ref erence range: 41 - 51 mmHg. The reference r gilbert was not used to interpret this result as normal/abnor mal. POC VB pO2 (test 20 mmHg code = 6720) POC VB TCO2 (test 33 See_Comment H [Automate d message] code = 7-1) The system wh ich generated this result transmitted ref erence range: 24 - 29 mEq/L. The reference r gilbert was not used to interpret this result as normal/abnor mal. POC VB Bicarb (test 31 mmol/L 23-28 H code = 48251-2) POC VB Base Ex (test 3 mmol/L [...] chemic ally sensitive biose nsors on a [employer] ip that are config ured to perform spec ific tests. The microfabricated sensors measure analyte concent ration by an electroch emical assay. POC Sample Type Venous (test code = 6690) POC Clean Dev (test Yes code = 6672) Performing Lab (test [facility] mp[facility] code = 65275) [facility] Cli nical Lab, [address] [place] [address]; Director Internal Communications: Pilar King MD Lab Interpretation Abnormal (test code = 99827-7) [facility] VBG+Iqh3877-28-67 16:03:28 Test Item Value Reference Range Interpretation Comments POC VB pH (test code 7.31 7.31-7.41 = 6719) POC VB pCO2 (test 61 See_Comment H [Automate d message] code = 6718) The system CSRic h generated this result transmitted ref erence range: 41 - 51 mmHg. The reference r gilbert was not used to interpret this result as normal/abnor mal. POC VB pO2 (test 20 mmHg code = 6720) POC VB TCO2 (test 33 See_Comment H [Automate d message] code = 2026-) The system CSR ich generated this result transmitted ref erence range: 24 - 29 mEq/L. The reference r gilbert was not used to interpret this result as normal/abnor mal. POC VB Bicarb (test 31 mmol/L 23-28 H code = 54020-4) POC VB Base Ex (test 3 mmol/L [...] which contains microfabricated sensors, a calibration [facility] centerSwoon Editions, fluidics system , and a waste chamber . Each test cartridge contains chemic ally sensitive biose nsors on a [employer] ip that are config ured to perform spec ific tests. The microfabricated sensors measure analyte concent ration by an electroch emical assay. POC Sample Type Venous (test code = 6690) POC Clean Dev (test Yes code = 6672) Performing Lab (test [facility] mpus code = 72436) [facility] Cli nical Lab, [address], [place] [address]; Director Internal Communications: Pilar King MD Lab Interpretation Abnormal (test code = 73265-7) [facility] CenterAFB Culture w/Lubcg5759-08-68 01:01:47 Test Item Value Reference Range Interpretation Comments Final Report (test No acid fast bacteria code = 8488) isolated at 8 weeks. Path Review - AFB Partial antibiotic (test code = 8477) treatment can render AFB culture negative. AFB culture has sensitivity of 90%.The results have been reviewed and electronically signed by Pathologist:WILL HAWKINS MD #[id number] Acid Fast Stain No Acid Fast Bacilli seen Truant (test code = in direct smear 04659-4) ZAKIA (test code = Cultures are held 8 weeks ZAKIA) before finalization. [facility] CenterAFB Culture w/Nmyfe3567-46-43 01:01:47 Test Item Value Reference Range Interpretation Comments Final Report (test No acid fast bacteria code = 8488) isolated at 8 weeks. Path Review - AFB Partial antibiotic (test code = 8477) treatment can render AFB culture negative. AFB culture has sensitivity of 90%.The results have been reviewed and electronically signed by Pathologist:WILL HAWKINS MD #[id number] Acid Fast Stain No Acid Fast Bacilli seen Truant (test code = in direct smear 32626-5) ZAKIA (test code = Cultures are held 8 weeks ZAKIA) before finalization. [facility] CenterCOVID-19 (SARS-CoV-2) PCR- Asymptomatic [id number] 05:26:08 Test Item Value Reference Range Interpretation Comments COVID19 (SARS Not Detected Not Detected CoV-2) Result (test code = __This test is a 12307-9) qualitative reverse-transcr iptase polymerase anjelica n reaction (RT-PC R) developed for t he AF83 CHIKA Villij 0 system and inte nded for qualitative detection of SA RS CoV-2 RNA in nasopharyngeal and oropharyngeal s wab specimens colle cted from any indivi duals, including those suspected of CO VID-19 by their health care provider, and t hose without symptom s or other reasons t o suspect COVID-1 9. A fact sheet for patients provid ed by the manufacture r ([employer]) c an be reviewed at:https://www. fda.gov /media/746080/d ownload . A fact sheet for Health Care pro viders is provided by the zinc miner blasting ([employer]) and can be reviewed at: https://www.fda .gov/me hector/446135/down load Results must be interpreted wit hin [...] specimen for testing if clin ically indicated. This assay has been approv ed by the FDA for use only under Emergency Use Authorization ( EUA) in laboratories th at have been CLIA-certi fied to perform moderate-comple xity and high-comple xity tests. The perf ormance characteristics of this assay were verified by the Microbiology Laboratory at [facility], CLIA Accreditation # : [id number] and CAP Accreditation # : [id number]. COVID19 SARS VALET CASHIER Swab Source (test code = 52648) COVID19 SARS Pre-Radiation Indication (test Therapy code = 21387) [facility] CenterCOVID-19 (SARS-CoV-2) PCR- Asymptomatic [id number] 05:26:08 Test Item Value Reference Range Interpretation Comments COVID19 (SARS Not Detected Not Detected CoV-2) Result (test code = __This test is a 03328-3) qualitative reverse-transcr iptase polymerase anjelica n reaction [...] patients provid ed by the manufacture r ([employer]) c an be reviewed at:https://www. fda.gov /media/834134/d ownload . A fact sheet for Health Care pro viders is provided by the zinc miner blasting ([employer]) and can be reviewed at: https://www.fda .gov/me hector/935087/down load Results must be interpreted wit hin [...] specimen for testing if clin ically indicated. This assay has been approv ed by the FDA for use only under Emergency Use Authorization ( EUA) in laboratories th at have been CLIA-certi fied to perform moderate-comple xity and high-comple xity tests. The perf ormance characteristics of this assay were verified by the Microbiology Laboratory at [facility], CLIA Accreditation # : [id number] and CAP Accreditation # : [id number]. COVID19 SARS VALET CASHIER Swab Source (test code = 69839) COVID19 SARS Pre-Radiation Indication (test Therapy code = 62404) [facility] CenterCRP2022-05-11 17:20:27 Test Item Value Reference Range Interpretation Comments CRP (test code = 8.81 mg/L [place] CRP 97508-5) assay are as fo llows: Reference range s when used to assess cardi ac risk: <1.00 mg/L Low cardiovascular risk 1.00-3.00 mg/L Average cardiovascular risk >3.00 mg/L High cardi ovascular risk.Reference ranges when used to assess inflammatory responses: Less than or equal to 10.00 mg/L. [facility] CenterNT-Pro BNP (In-House)2022-01-06 17:19:19 Test Item Value Reference Range Interpretation Comments NT ProBNP (test code = 272 pg/mL See_Comment H [Aut omated message] 37011-9) The system Wishery generated this result transmit milaan reference range : <=125. The refe rence range was not u sed to interpret th is result as normal/abnormal . Lab Interpretation (test Abnormal code = 47130-7) [facility] CenterBilirubin [id number] 16:57:43 Test Item Value Reference Range Interpretation [...] 72 hours = ZAKIA) prior to chemotherapy. [facility] CenterBilirubin Ghsds0119-96-23 16:57:43 Test Item Value Reference Range Interpretation Comments Bili Total 0.4 mg/dL See_Comment Indocyanine Gre en (ICG) (test code = may cause false ly 1975-) elevated biliru bin results. Total and direct [...] 72 hours = ZAKIA) prior to chemotherapy. [facility] CenterLipid Tzhps0562-19-14 16:55:20 Test Item Value Reference Range Interpretation Comments Chol (test code = 333 mg/dL See_Comment H ATP III Cl assification 2092-3) of Total Choles terol Primary Target of Therapy (in mg/dL):<200 Fefmulelf623-62 9 Borderline high >=240 High [Automated message] The sy stem which generated this result transmit milana reference range : <=199. The refe rence range was not u sed to interpret this result as normal/abnor mal. Trig (test code = 207 mg/dL See_Comment H ATP III Cl assification 2571-8) of Serum Trigly cerides Primary Target of Therapy (in mg/dL):<150 Rpthcx272-917 Borderline high 200-499 High>=500 Very highNon-fasting triglycerides > 200 mg/dL may be fo llowed up with a fasti ng Lipid Panel. Calculated LDL- C may be falsely decr eased when non-fastin g triglycerides > 200 mg/dL. [Automat ed message] The sy stem which generated this result transmit milana reference range : <=149. The refe rence range was not u sed to interpret this result as normal/abnor mal. HDL (test code = 73 mg/dL See_Comment [Automated message] 2085-04) The system Wishery generated this result transmitted ref erence range: >=40. Th e reference range was not used to int erpret this result as normal/abnormal . LDL (test code = 219 mg/dL See_Comment H ATP III Cla ssification 18368-4) of LDL Choleste rol Primary Target of Therapy (in mg/dL):<100 Pvuxaet579-221 Near optimal/above -986 Borderline high 160-189 High>=190 Very high [Automated mess age] The system Wishery generated this result transmitted ref erence range: <=100. T he reference range was not used to int erpret this result as normal/abnormal . VLDL (test code = 41 mg/dL 29070-5) Lab Interpretation Abnormal (test code = 04581-2) [facility] Kgnrp7572-29-04 16:55:20 Test Item Value Reference Range Interpretation Comments Chol (test code = 333 mg/dL See_Comment H ATP III Cl assification 2092-10) of Total Choles terol Primary Target of Therapy (in mg/dL):<200 Hbrirrkfj256-44 9 Borderline high >=240 High [Automated message] The sy stem which generated this result transmit milana reference range : <=199. The refe rence range was not u sed to interpret this result as normal/abnor mal. Trig (test code = 207 mg/dL See_Comment H ATP III Cl assification 0361-8) of Serum Trigly cerides Primary Target of Therapy (in mg/dL):<150 Qfigto067-875 Borderline high 200-499 High>=500 Very highNon-fasting triglycerides > 200 mg/dL may be fo llowed up with a fasti ng Lipid Panel. Calculated LDL- C may be falsely decr eased when non-fastin g triglycerides > 200 mg/dL. [Automat ed message] The sy stem which generated this result transmit milana reference range : <=149. The refe rence range was not u sed to interpret this result as normal/abnor mal. HDL (test code = 73 mg/dL See_Comment [Automated message] 2085-04) The system Wishery generated this result transmitted ref erence range: >=40. Th e reference range was not used to int erpret this result as normal/abnormal . LDL (test code = 219 mg/dL See_Comment H ATP III Cla ssification 36271-7) of LDL Choleste rol Primary Target of Therapy (in mg/dL):<100 Yhzowix277-526 Near optimal/above kxsduvr752-088 Borderline high 160-189 High>=190 Very high [Automated mess age] The system Wishery generated this result transmitted ref erence range: <=100. T he reference range was not used to int erpret this result as normal/abnormal . VLDL (test code = 41 mg/dL 77712-8) Lab Interpretation Abnormal (test code = 51858-5) [facility] CenterHemoglobin [id number] 16:36:35 Test Item Value Reference Range Interpretation Comments A1C (test code = 4548-4) 8.2 % 4.3-5.6 H HbA 1c values >=6.5% are diagnostic of diabetes mellitus.Diagno sis should be confi rmed by repeat testing.Therape utic Action suggeste d: >8.0% HbA1c; Go al oftherapy: <7.0 % HbA1c Lab Interpretation (test Abnormal code = 20424-7) [facility] CenterHemoglobin [id number] 16:36:35 Test Item Value Reference Range Interpretation Comments A1C (test code = 4548-4) 8.2 % 4.3-5.6 H HbA 1c values >=6.5% are diagnostic of diabetes mellitus.Diagno sis should be confi rmed by repeat testing.Therape utic Action suggeste d: >8.0% HbA1c; Go al oftherapy: <7.0 % HbA1c Lab Interpretation (test Abnormal code = 86866-0) [facility] CenterMD NTRK1 Fusion Analysis with Interpretation and Gnpgow0598-61-93 15:18:40 Test Item Value Reference Range Interpretation Comments Archived Material Previously diagnosed (test code = 18576) tissues from [place] [address] were selected for molecular analysis. Results will be reported separately. [facility] CenterMD NTRK1 Fusion Analysis with Interpretation and Irwfeg0148-58-75 15:18:40 Test Item Value Reference Range Interpretation Comments Archived Material Previously diagnosed (test code = 87991) tissues from [place] [address] were selected for molecular analysis. Results will be reported separately. [facility] CenterMD KRAS Interpretation and Report 2021-12-29 15:18:35 Test Item Value Reference Range Interpretation Comments Archived Material Previously diagnosed (test code = 75925) tissues from [place] [address] were selected for molecular analysis. Results will be reported separately. [facility] CenterMD KRAS Interpretation and Report 2021-12-29 15:18:35 Test Item Value Reference Range Interpretation Comments Archived Material Previously diagnosed (test code = 84372) tissues from [place] [address] were selected for molecular analysis. Results will be reported separately. [facility] CenterMD EML4/ALK Fusion Analysis with Interpretation and Spllng2300-13-42 15:18:30 Test Item Value Reference Range Interpretation Comments Archived Material Previously diagnosed (test code = 82148) tissues from [place] [address] were selected for molecular analysis. Results will be reported separately. [facility] CenterMD EML4/ALK Fusion Analysis with Interpretation and Hthieo7582-21-73 15:18:30 Test Item Value Reference Range Interpretation Comments Archived Material Previously diagnosed (test code = 02363) tissues from [place] [address] were selected for molecular analysis. Results will be reported separately. [facility] CenterMD EGFR (Exon 18, 19, 20, 21) Mutation Analysis with Interpretation and [id number] 15:18:25 Test Item Value Reference Range Interpretation Comments Archived Material Previously diagnosed (test code = 34656) tissues from [place] [address] were selected for molecular analysis. Results will be reported separately. [facility] CenterMD EGFR (Exon 18, 19, 20, 21) Mutation Analysis with Interpretation and [id number] 15:18:25 Test Item Value Reference Range Interpretation Comments Archived Material Previously diagnosed (test code = 45898) tissues from [place] [address] were selected for molecular analysis. Results will be reported separately. [facility] CenterMD BRAF V600 E Interpretation and [id number] 15:18:15 Test Item Value Reference Range Interpretation Comments Archived Material Previously diagnosed (test code = 19617) tissues from [place] [address] were selected for molecular analysis. Results will be reported separately. [facility] CenterMD BRAF V600 E Interpretation and Fjghnn8622-40-88 15:18:15 Test Item Value Reference Range Interpretation Comments Archived Material Previously diagnosed (test code = 34627) tissues from [place] [address] were selected for molecular analysis. Results will be reported separately. [facility] CenterMD ROS1 Fusion Analysis with Interpretation and [id number] 15:18:10 Test Item Value Reference Range Interpretation Comments Archived Material Previously diagnosed (test code = 54047) tissues from [place] [address] were selected for molecular analysis. Results will be reported separately. [facility] CenterMD ROS1 Fusion Analysis with Interpretation and [id number] 15:18:10 Test Item Value Reference Range Interpretation Comments Archived Material Previously diagnosed (test code = 47444) tissues from [place] [address] were selected for molecular analysis. Results will be reported separately. [facility] CenterMD RET Fusion Analysis with Interpretation and [id number] 15:18:05 Test Item Value Reference Range Interpretation Comments Archived Material Previously diagnosed (test code = 24844) tissues from [place] [address] were selected for molecular analysis. Results will be reported separately. [facility] CenterMD RET Fusion Analysis with Interpretation and [id number] 15:18:05 Test Item Value Reference Range Interpretation Comments Archived Material Previously diagnosed (test code = 96680) tissues from [place] [address] were selected for molecular analysis. Results will be reported separately. [facility] CenterMD NTRK3 Fusion Analysis with Interpretation and [id number] 15:17:55 Test Item Value Reference Range Interpretation Comments Archived Material Previously diagnosed (test code = 77209) tissues from [place] [address] were selected for molecular analysis. Results will be reported separately. [facility]ation and [id number] 15:17:55 Test Item Value Reference Range Interpretation Comments Archived Material Previously diagnosed (test code = 19141) tissues from [place] [address] were selected for molecular analysis. Results will be reported separately. [facility] with Interpretation and [id number] 15:17:50 Test Item Value Reference Range Interpretation Comments Archived Material Previously diagnosed (test code = 14666) tissues from [place] [address] were selected for molecular analysis. Results will be reported separately. [facility] with Interpretation and [id number] 15:17:50 Test Item Value Reference Range Interpretation Comments Archived Material Previously diagnosed (test code = 35134) tissues from [place] [address] were selected for molecular analysis. Results will be reported separately. [facility] -[id number] 17:40:32 Test Item Value Reference Range Interpretation Comments Elisa Ap Link (test code = 98912) [id number] Cytogenetics (Received) (test code Yes = 8304) [facility] -[id number] 17:40:32 Test Item Value Reference Range Interpretation Comments Elisa Ap Link (test code = 83687) [id number] Cytogenetics (Received) (test code Yes = 8304) [facility] NGS Blood - [place] NGS Blood Control is required for all Molecular orders of two or more genes to receive testing on the current 146 gene STGA 2018 DNA Panel. If [place] NGS Blood Control is not ordered, testing will be routed the 50-gene, CM50, panel.2021-12-23 19:54:27 Test Item Value Reference Range Interpretation Comments Molecular Diagnostics Yes (Received) (test code = 8400) ZAKIA (test code = ZAKIA) Please call and have her go to the lab [facility] - [place] NGS Blood Control is required for all Molecular orders of two or more genes to receive testing on the current 146 gene STGA 2018 DNA Panel. If [place] NGS Blood Control is not ordered, testing will be routed the 50-gene, CM50, panel.2021-12-23 19:54:27 Test Item Value Reference Range Interpretation Comments Molecular Diagnostics Yes (Received) (test code = 8400) ZAKIA (test code = ZAKIA) Please call and have [facility] 2021-12-16 21:39:00 Test Item Value Reference Range Interpretation Comments Addendum 1 (test code = r0jbdHAsXBNnhGJ2HcL 37) aNLClw6kjo8EwvAJaeS HlUGaazMZibsCscz95b VO2tO42YO7jEKKlMbT0 FFOrmxJ7Whn6JODzWNS luCYcK033h1mld6eapw KqqVE3lJihQNSnzileG mC2MBcdFKYmiqipEAc9 HZkhDLNuiAZ4ATQcpDN oB6WvPLZqUP6fqca8GU V9XNisYMKmYzN0NYNrk RWiBOCdmZhbCHmez612 PXP1ZePfHGMoxhUcwFe dnH1vUoFhQNPESR1YEO GeS1jtprOmEhUROtohX JRitxDDxJQoyKC3QTKC hH6rtpNdIKQzk3BjibX mi53qJ4NmmySsAKHZAk d4KLGiACKxhovwWMWfR SCyi1N8KJusVd4chCZ7 sY5uINJsAOA9GTSawXO gYXNzYXkgaXMgbWFudW VgS7J7crOvHCC8OUPwb WxlbnQgRGFrbyBhbmQg sKMqwxQrYX2emx7baH2 zPOszJH29gT8RPL2OHC ljC2yzhcSrVtMSGv1iL NZvjJNbnWXvBq6xwDCj PP6qQTKdfx8uqFztYWP peGVkIHBhcmFmZmluLW ClUxWbBXHmLSOlw5O7A NY1k2dsCdWmqfGPY4sa OB87BAEdd72hKJX7v5W 9RJukAQHkFB6bSERrhN moXCCcIaPmSLPtMUB9G KV9gG4fMTqzgKauXCAz d4GaN9qwsTFgTRH3MZK wDFSqSL08KeMdnLIrPQ FvLFv2ZSvaDLEayPNen hKqXIOacgD5h0VzEHWz BCXef20nYF8xg04qCXk tW10hp5SsEpVlg2PyuG Cuk0Cyq9VxB0cefOQbn HwvdxGwmZVlNH0cARXx lcEuwY9urWLtp7VowHb wZXMuIEludGVycHJldG I4vL0vOVu3uRQxuMynO SUtiaXzyQ0uKv5xEWB0 wF2vFYeflESzF2QjwBT kFPPiD53eHNItGONYBU wgdGhlIHBlcmNlbnRhZ 1Wcs9TgxBErs6KebRJu EW5ockRuc5XhTPdmGpQ bmD5gUA9vIGGogFKyrv RlbnNpdHkgaXMgYXNzZ XNzZWQuIFBsZWFzZSBy TPWuvjP5eeL6vRBvbL6 6VA3yILMdxDrhojNqkX MxRYXoUSinICzyt0Pxp DOxs1KvMWFdwt0bjnyq bCYwdPTjHW9dZFJir6S nsBLhTLFacgVast2uaf MkIXVvUODfI1Howvhrn GljcyBvbiBvdGhlciB0 jTWryWEkaRaxIQPcs3H jaCBkZWNhbGNpZmllZC XtyTDvzO9diwOjGH4hM C9iDD8qbt7oxQTqn2Fr VJP1bD0zvzD8aITvrxW hbmQgdGhlcmFwaWVzIG Ijrh1wyHWzTWSmgSNjA P33VPDwZbrwYXLyvWEx ZFxpMFxwYXJ9 Submitted Clinical History z2upzKViULUpb2roCDU (test code = 70037) mbGFuZzEwMzNcZnRuYm pcdWMxIHtccnRmMVxzc 0InW1ZcDhHaFFvdtnRm XGRlZmxhbmcxMDMzXGZ 0bmJqXHVjMVxkZWZmMH onMe4vnFRvmSogOxVlP XZab1yrvaPWrnivaOy2 p8oeXPGwAfT1kZZdHTi aD8ubzvBvrWTaECMcCJ h5uJ65ZAHllI1rxSHhR QvdkzJiFrQ3ABlqBLGj ByO1SXHrmKOmACTiR9y yZWQwXGdyZWVuMFxibH NqAYY5aPqtw5A5eFOip GVldHtcZjBcZnMyMiBO s0OsSGc2mTmcM2OtOIM wGpQ9qTVfQJDwVRsqTC LxEJZvgtQ7fN40RUpzz dJ6nMAne0Pzt58wz905 qO4daLHlFWW3GLRdIOE moWEnSFBwNRA2ERYgvR PeH9ioEPVwUL5kxxbuJ XjfQGvcZHRboMX9COZe aUGgD4DbVBKlBEtwEQX zldt6OzAeTa1ehLCirN zwTBmij2zzs0dcjHGwQ pq8URXoXcAkMbakVUrp e1Kls5srDPOrqf8jNYM 8yESozQkjb1L3rTKtNR IhfJBbzmSsFZKkUpN5O OxiFG2jkm26NZWhHOI5 qe8pgGIynKoeukEucWC vPHacW3UlFCKgf630TH LtZ0XwKLGxj3H0ugNiO pCsCROvpMS1jeG1CLUw NGr3iRNzapJ8drStjJC qB7ajoF9yOPNqNQ6ayp keu8gsQNuoGYkvOSJqc VA3pkH6KFHsdNTdI2Oy bM8cNHPuOVbtVUCdyiv 4MvOlPf2koAQssKjnSB xzYmtwYWdlXHBnbmNvb nRccGduZGVjXHBsYWlu XHBsYWluXGYwXGZzMjR gtDwktIqbuV7xUsArZc MvHJmhRE6sCLVlF0dus PEfUTGuJAVeA7ifZvBv wY4uxUabLZxjbmPsPXk 1bmcgbWFzcyBbUjkxLj hdXHBsYWluXGYxXGZzM jJcbGFuZzEwMzNcaGlj aFxmMVxkYmNoXGYxXGx eD0liZpWjMeStRgfcLL J9fQ== Diagnosis (test code = 34) l5zroZOhXWWrzLN0GgW xMROrn6xlr7FrcMHzaX JpNQsngUEvxkKcwm79x VY3vC24VA9bOYCrWoT1 JZKzldS7Dul9LVMvDQB mfMZwI826x0ljm8ftop CsmSN0SUScDLRjG4MhG B9cOESzsKRcM04hnTVz NYW4BBFwRWElnWCaCQE rNAD5GSUsnDQnR2niTT RvQF5pjxhpAJghXZvwH IRhiNE4CXOetNYqX0Bn OMVhEOaxWECesjx8QpY uGu1pcAWhvLqtPRdaFB JkXHBsYWluXGZzMjBcY 0RnXABiZHu3ddmvCQfe LkBjuWUpONLrrB8sCJj oLL2wh0Fsa45clJpkgI BkdB9oe3h5KLNxtqpxT YCsoLn6HeQqxRrkHwEt OPSlGQMYUVPXOE0OKqT FAWuHXFFIAjLAQa5KUA xwYXJcbGkwXGxpbjBcc UVvBZXCZ9aCBWWjggHi WF6cZZ1oFBSiKZGbmv3 = Gross Description (test l7jmcWAqFKUhwZCYDHw code = [id number]) wMVxhbnNpXHNwbHRwZ3 DszkzhVKuqGF4dTC7xx ToiaBVuyUBpAX6TYGXz ZmYxXHBhcGVydzEyMjQ mVGBlwPAqtEP2WMHoDE 1hcmdsMTgwMFxtYXJnc fE5BSAyjMYvC4IlFUEa UK4zqoeqUIC9GIjypC7 clfEHYstuBx6wlLLvyZ tcZjFcZmNoYXJzZXQwX TDcpCzlFPNjZKk1zS1X JlvwH24rz8P2Buj2PEP fEWZrG2XvLQ6tVDVuxO YmA74JCaopMZX5ZWBEJ mdgKTAfUN7Ym9aqNTPs eHYwGTC6JVqzuENaYUW uOQIvIUt1RVDsDNekdG ZfXJ4ddRxpAdmmqEvfh 2VjdCBcXGlkIDUxMDAy FKxmFSPpQX8YAqAzHOF bGRu2GFBuSGc4KUw5NM 6GOfWcSFLrYNR4Ksf4U WHxWQr3IRuePA4YQHHa MjAzNjAzMTAgNTUzMTM dJJz5UDByKYwcRJZpnC FsIFxcZnMgMTAgXFxmY pYwNTTmURbpewC0XFYm YWluXGJcZnMyMCBBOlx gVQJsBFycdZjsiM4yKD HwU36iz1QIf8RzFW5AT Bm2gzUgegowhK3sQOKv oxZrYSygyCOuX4ouNhh tXvAgNxTrGJJSmL7bZW SwPEP9FTBnpONjDBueM bQcPZJnJM1jya0jH3ap RCnhJryrgYT6XlwpOVs nMxKzDK94sUWtyVujVH NvZnQsIGZyaWFibGUsI TSyaaV9poU7XD3rZrPl p11caNttx3QkEQYkEUb qLF27qvfkRO85UEavHI 24AYzqNC1bILUwOBvcD UUkS3OdO9L9CWfgEB90 mSWnbZkxn5FdbWd6zMQ kIGluIEExLiAgXHByb3 NfR4X0OQYaOFkue3drE LGyVPphc1XbZIcJPNWJ QX0PTC9frVL3MGrKI2U VX0pVfXTsOPB4nZU2AO NFGitfpRE6tXB2sG98D OGmKMSwuHXuDOoxT091 IBE1UMRtLCbzr1seVRA lFMmay2YyMJqLLVSJZO 6KWD3veNU5CSxVW4VRG HwyMTAxNnwxfFVTRVJ8 UQgmdIbeeMl0b9sdhUM ap1o7IEnfOZU1gPqmbO FpblxsdHJjaFxmczIwI W5EFVQdyOHLXAM1QA7s JBc1MDqvJBOcO5RkF4X lbmRccGFyXHBhcmRcc2 ziSBP9OATumZKzzPDnD aIpMgmaYGZ5YANyOOwv AM0ESBLnBXO7CNbhnF5 6vHEyOR3RQHGgBOcwRK ZgPFZakiR7PGWvjTXoC RQ4CO5qiPutnUMnxkkn quN7FJ0SeW== Biomarker Block(s) (test f4yvuWPgSAKgaUB6FdP code = 9841) aOASlm3vos5WyqVRgrG WaCIcnhFCaoxIovi44l PG4oX40OS2lPPCiJwN8 DCWcxqZ0Zhq9YRHhLQB mwXIrB068o4tqb2xpuc GriJH1nNmsRPTbbyltT gP7YDnmWLZlheabTTi4 IHyrWQKlyAR7GZZccVR zY5JiLTXaWC1epsy2SM S8ONkgKEQxHzR6CEFmm WPjUUEwpTonIHtcj543 AIS2MxElIPQfxeGwzEs nbU5fPyZzAMJQysjoPJ W1IMFmwcxzqPfuWNOUx H5tlvDlgJ7fxveyCJFh cGFyfQ== Disclaimer (test code = m4mmzJQpKMExzAWpTmV 9844) fQAGwPCWli0ucUIRkoP FuZzEwMzNcZnRuYmpcd VEeIRTiSwIiz1bbq768 uMQcx2kzTNJqUrB4hCX sPKZtuEXaC287JIFeAS xvp8ous8ZgMUMbqJCco 3W9YDHJvquocDu8dNbz N19io9E5UvmxK4rxSOF dDJTuI3YpDC0eLZIeVs k0FHJ7AVN8EDTmIVUhF 2NlQN2eVYXaiTLxAMk1 p3ouyHnyNXSyLUI1p1z mBVwtjbHkHW4ngp2tqM k1h4sgeuWpLYBjUAOyu XCUFWErB5KzhQblUo9e pLv8mWhzFijsBVR7Cvf 7EK7cud87lhg7uMqsZU KfmbauIgK4HFbeMMLut rxnHIa6WNxzHLBxwBH5 MOShqRKjB5AtKGGfCZ2 xaxc8STE6EZfgSTUpSk S4RYRdpAAlAFMpsCzbY Hort331SAY1XwMtEC9u G3Vjn0T3rL5fsGAoPAD ebNXoJkZaIOYuhf9zbI JcIEuws6DjFYE2joA4k ZXtqEFcPYIkWQ75Nkdg h6RsYxgoNWE0WVBsbkQ my7Dec8ynVjXskpLvE7 mnO4WaCINyFBOiWSFuX sWrasFto4Kqw1SgaDCu iTr3f0leDVYsVZRvoRe wc3phPDE5ZTEkK4S4dJ Rhv9wzVFrnMBQjeKV8w xO6JOJzoMAeQ2ZcfB1l NDSpTR7ighe4c6csKIK 6ZDknNIGvTlN0pjN1KH BcaGVhZGVyeTcyMFxmb 649WOI3LjXiPUCik5Ud F7MkeOsxR09rvHsrP58 kHNGprSjweZ9gyXnwsM 5cZjBcZnMyNFxxbFxwb BWryatxLLltvwN8OVnk xszaNLDcBZlmO1chSxQ bFWQtkMeiFFmjp9QtDG RdKVLfQtakknD6QURTe 57tXRZlw9RxAKRhtQ4i jLFqJNqmevFuoGL4TDp hdmUgYmVlbiBkZXZlbG 8lSZSiBI1kPQFjnzTgi a1rztLgCKFhGSQtJ3Gk cmlzdGljcyBkZXRlcm1 jjhYxXEO3DTBFHS1XIB HkKKMnx97kZFVybEogs F9ckRPzbpLkNMJxv0Nw hO1bbJXFZVXfM1qzPQ2 wQSugk6TycXOwrNUqsS E9FKStc8XaRpRlubJoq HObaSRkT3XvvImjH5ok UFAcWLWwdfIhcQUuu0V gOTAsxRU8nDQqHP1PJk IXj80dBXTnXQUAojTnQ CVhtZuiwYQ3rpM8bR3e LiBJZiBhcHBsaWNhYmx wYCBqe496rv3bknL6SO UqMDTggfpmj8LrAAZzR ZNmlP92FSYyRPSstu9p zuuoyEYfrgXwY3Kculf 3yT2bKYSpLZlqAAKvNQ ZzMjJcbGFuZzEwMzNca GljaFxmMVxkYmNoXGYx JTijA3vrNiPcSqGrSdy wYXJ9 [facility] 2021-12-16 21:39:00 Test Item Value Reference Range Interpretation Comments Addendum 1 (test code = l8hzaYArOORcfJE5CaY 37) fYLMoe9vop9YtwSRkxG HcGQyftSAfqjJnkw69k BH4jT11PW5cACPkEvY2 HSNwjnB5Igy2KHZmSJP wqGUdH324f1kyy2iklc PysPH2eFayLRZsdoeiN nS8NMjmKNKjgvuwHXv5 YSatJQHkdQZ4HHBooCV xO0NjEXCeGI9epfj3FZ Y4IMiuTAVjTgX8RQCxr LVcQGDwlKijFQpez269 JQP5TrUuFINquiDmvZx kbF8nUrFvYBBFOG0BRZ EmU8zckmAsPoAEPkfwD GSvdeANfPQngXC7LIQF pJ3uayGySGMne3UojpH wl47jE0AdhbKfMCGSEk e1SJEvTIKuidhbNZLtV CIsr4D4VGooGs6pfWZ1 nB0hSKKtAFU6CAZvrVG gYXNzYXkgaXMgbWFudW OmX6T7qwRjDMI8XGCea WxlbnQgRGFrbyBhbmQg sHHyycNbOX0nea5paU7 lYJubSL49eI8WOH3QMF xxS1wmnuGjGhGPVr4vH CXdjSEgrSLaGj3omLFo WC2pYCStyp5xoZoaSIQ peGVkIHBhcmFmZmluLW IoZaMwZKZfNYZqr3N1H KM1k5amMqAyijBTE9cq ZY76IMEyo91sRVA8k3T 4SChxLBBeTT6pHWEqoH coTEQnAvBuAHRcAYP8P VD5fF5bJNtzgBvdSIYa z9ZfA4ockIVmPWS9CIQ gSJPlRG09VsZrhJApQP JeDMl4ZTsxMGNreUPxl pItXRKrgvL3i1IwZWMh UHRut31aXM9hc74lIRt uL51ko0WfVbAfc2XgvA Gzy4Yxu1CqA9rfvOUfh JbujyNqdGMjLJ3jQVPi hnOyoV1ydRWsv8XtdWb wZXMuIEludGVycHJldG O7kD5wUUt0bWIroRjrS MJxweMieS7tWd3sMHJ4 tG7bGOvmmHHsJ4EvjCA zIHYyQ29pCJItRWOSIX wgdGhlIHBlcmNlbnRhZ 8Sqb4SabQKvf6GofXXp KF0zclLqr1RnJIkgBnX xeS1dPR0oIETywYLyrc RlbnNpdHkgaXMgYXNzZ XNzZWQuIFBsZWFzZSBy FLBxmrU8tbK5pBGstU8 2NN8yRVWscHhhgjGnwG KsUYRpTAyxGSvpk2Eas FBkn4IiBNZbrw8hjeqt dWMgkCTyUY8eCLDuz7C euCMiJJFtmaMoez7vsy BrDQEmKVVhK1Pabbkyh GljcyBvbiBvdGhlciB0 aMPpaGXesDttLFUcz5Y jaCBkZWNhbGNpZmllZC CdqHObiH7kztYkAB0lW E5hNO7xzl0zeSVor0Ls SKN7oT9rbtW1zCZvvxI hbmQgdGhlcmFwaWVzIG Zduk8jhXObAZDlcDYgQ W19GWEdIxtjFLQqrYFp ZFxpMFxwYXJ9 Submitted Clinical History p9ekbGOxXOAhx7bmGKC (test code = 06894) mbGFuZzEwMzNcZnRuYm pcdWMxIHtccnRmMVxzc 4EtN5UuWiRdSBesufLq XGRlZmxhbmcxMDMzXGZ 0bmJqXHVjMVxkZWZmMH yuMz9kyAIlkUjzZiXyL YMfy8jeeoDKxzamuMu9 j5vgXKRfZyX8qODgORq jF6dtugTwcCBmLPIsXN x7hZ13NVCbvV7pfCYkC CeoxsGrBcJ8DXssTKRp AwT9SEQadKOdKEZmE5w yZWQwXGdyZWVuMFxibH EqQIV4tRrdp4V1dBSnj GVldHtcZjBcZnMyMiBO c3FsFDk4eMusS1YwBOO fTlU7oKMcDBPuRJuiTZ AsVKZzbtL8tT43VIruz bW9yLHzp3Neo38lo127 lC2mcECjGDE2ZIGsXGJ hkAMwEILqAUM3XHSxuO WeV1jaCPIfJM5ktduaY DtlSHtpLCRetVL4NDXv tZFmM8ReEURlMFxzFRQ kkmp5HaDnIv5cvSFhfA arQByng8ajp1wlmIDuG lu9TLAkEvVaVqngCEee n0Xkm3muFMOhzz2pLYM 6tITzqGqmx5I4rSHwBX YlzBAghyXmEZJzNhJ4F ZhbBX4mkt12VLJbQIP0 al4bvFDsxBduoxIzuIC tAGswS0WgYHNnh688BG DcD9FkMOJbt1Z7yjYbM iJqTMLjsKS6kxD1DSLs FNa5wDTomqZ8yhSqfJR kD2lrfM3gIMDyOH3zgg nbr7fkVGapGGusTATsg VZ3ejZ4TLMfyVMrB5Cs vK1jVWOxDSpzCJNzbmr 1ReLkVe7fmVPuxNjkSK xzYmtwYWdlXHBnbmNvb nRccGduZGVjXHBsYWlu XHBsYWluXGYwXGZzMjR nmEkvzLnskU4gZtCmQx QgVTmaBN6uOVQuI1mfa BSjRJCgDDLsK7vgIrTq oD4vjVxdRBfvhrOwMKi 1bmcgbWFzcyBbUjkxLj hdXHBsYWluXGYxXGZzM jJcbGFuZzEwMzNcaGlj aFxmMVxkYmNoXGYxXGx uC1ngPwCzJcTfHealBF J9fQ== Diagnosis (test code = 34) y4phuGQcUHWdeRJ3LiT nOWHjw3htm0AbfMKlhK QgWAqfdZBkkqYauw63a EP8uM96EM0sKOPjCvL2 HKHjekI0Vch6UKBwELM vzSSkS441y3zxu8crpu PtiYB7ORXtZQClP1KpR E5bIFOoyHMdR16ybJDt ORG7QOQsPHExyIQfGVG vRVH2AQIfiJKcK5iiPC ShGR4wqjtcCRatSQvyS SDzzXP0OOTdzADlA5Hd BVBzDQzlEMCyhxz9CeF yYz7yjMBjdCrjWBmpFX JkXHBsYWluXGZzMjBcY 6LrPJDbGSy3nlybADob ZdGbmDCqAHWppL4mFSl qWU0yl0Dnu25glRaehX OihR6ev4p1DMNsaialO MIojWu0JpNneDotXvDr MDLdAZTCPFVCSF9PHgU HBOeYWLHIYmBYYs2DHO xwYXJcbGkwXGxpbjBcc ILzADANF1cOBGHccvMg BD0hDS5jMVDqNXMprm6 = Gross Description (test o1dvlZHgCSPwrGAVHKj code = [id number]) wMVxhbnNpXHNwbHRwZ3 BycarpJPddHR8zQW4kj FhoaKMrpXLoIJ7ENFOi ZmYxXHBhcGVydzEyMjQ nIQRmhUYklPC5YDQqAU 1hcmdsMTgwMFxtYXJnc oQ3CQCwmIRlO0PwIKUb DE5dlpozQDA6IDkbaG0 belNIXmqjZj3rxBXpnC tcZjFcZmNoYXJzZXQwX JIkvJddJVZoTPq2aU7S ValcB35yp4Q0Pbe5YWL cHOEfQ0ZsSX1eVGSfqL MiL06JOgjkLFU0PVWBK mxuCNNaZH4Oq5xcPZKt fRKgXBB8LAbgiEKfNGL mGLUyEYk5QVBvVIbufT TaBQ2mfJehFcestAmtd 2VjdCBcXGlkIDUxMDAy PYvuAYUtAM8RDyDiVXV fNDa9HZXdEKo1HFt9IL 7RQkJlNLKqHFT9Drj3O UKmKTd8CIzqVD0NLOEf MjAzNjAzMTAgNTUzMTM cHCm8OYRwXAjyJVPzwB FsIFxcZnMgMTAgXFxmY hPyYBKlTBfhydH1XBYn YWluXGJcZnMyMCBBOlx oXKBdWYhnrBrzvQ9lGU IpU17ug6LGm5HcZD7PA Et2voNgqexqpI6wCUNu jrOuZWavyRPyL0rxVfw kRkXbZmIbNLFQiU1qBF ObYLX0RHGkwVIaMGlsZ jIaMWZwVJ8bpo5rK8pa LPzoIewjaCH8OvliHTv jXdRnDP50gTZevBeqMT NvZnQsIGZyaWFibGUsI ROehcA8omJ6HQ1iNtTt l46soBfnt8MkCPXvZSw uHA83mmzaEX61OHsdXB 35PSzoHJ6rUNRkRRxlS HXxU2QsC8A3WQklRQ71 pXKdxDkhf2SwuOo6fCZ kIGluIEExLiAgXHByb3 IdH1Z0TSUgHMjhi6xlB GJcSNste0MdEDtOILEC VI0FEE3czWI4SXlSM0P HD3hXjFMnYZD3zEQ7JB RYSbmwxXG1yCA0xK65P TVeHPZspYCyYLseM022 SSP3JUHhZNqpi6frXCF qTFwks8JzJEfPMPFBIR 4ZPG2hlCC6TXzRY3PSW HwyMTAxNnwxfFVTRVJ8 BHuujFvnmWf6d5yeqLY nc2m9UHrjEXL9tIituQ FpblxsdHJjaFxmczIwI J3TYWNhjFISHRI1WD9j TZr2MDzxQNFlJ1KjP6T lbmRccGFyXHBhcmRcc2 pkLKB0JCMahKZnsMXnV oMoEglwOTV1DNVuKKce BR3RKDNwSEF8VPbgoH0 2dIUoYP0YOXGgMKnzBJ OfUCVopvH6EQSpcOKrM SG2DR3cnGwbaYNsmbiu mbI1MO2TwE== Biomarker Block(s) (test u9rwuUCqTSWcmGX9LlD code = 9841) aZERst3jju6YypCGgmS EaKYyrbZZbasExlf72p LH8tP95OZ9iUHGyVeU6 GKVlfnV0Zfy6VCRtGQK nqNHzR579q4qpd5wieh RdaSN2qZfeVAIecoerJ dU7PWmyWFCqekrfQCw2 NTqhCNXyeHC9OSGinZO pQ9CuLGLnBY0zqhj9AK Z3ZOygRUVmNkT8WCXrp HJnSELeiTdlQXexm334 AOX1KfLfRDIdikNdfMd bzO9zQnZpUMNHigmeAY R3TAGdimukdNslCISGp C1lyhCamC8szdpfDUCr cGFyfQ== Disclaimer (test code = t3wksCCgISLrpLSkOyA 9871) yLKZwUURzm0lnDQOlrM FuZzEwMzNcZnRuYmpcd XIoQZPkDzVgr6syt160 jCExh6foMEUeQlY9rWR vORWknNEcG358HRVoJJ yrv7kqq3WkRWXwyWLfv 4Q1OCPHpcmzmVv0fNzg H07pv8S0XeaxO0nmLRP tFUFvM2RfBC5uIKZcAg r4SWN7DPJ7VONuUMVlQ 0SaTJ6kXYNcjMOiLXn9 e0wsjAvkHMUqNJL2l1h dCAbutzQrNZ5noy6fkR w9b1smlmAiUUTlISUfh VMMLTThT1UnvGdcQp3m aZm8jKojYoudXAF1Oae 0KC3gya87hqr5qIpcCH EmfowbPmV3UDhyCBStp jlpJZg3YOwhCUJncCO8 SYVmcCJoO1GcUXUeHT0 rssy5YNV5SMpwRMOjMf G2WONrgUNzYHXouWecE Uigh703VOY4ClWkPK4i B7Bsu7P9rG8zbGZtNUB dgHAsVwIhDBFkqd9qoZ ViHIkwm7LoYRE8niF5v TVmqZVsMQHsTH80Cvee r1RvDxxySZR7DTBksgA yd8Ulu7ksQqLgekQnS9 exA2YmHUWtUBOuETRxG iMrazMzw9Tbg0MthXTo sLt3j1neUNZbSYYgdCg vk1alHBV4FMIrT6H9oB Ure6qmQAmqISJdjQV4o bZ5BJOcpHTzE5PxwA1v MUWyBQ5vgdv4b3ixAHD 0SVntUKSpNiP7zwN9XQ BcaGVhZGVyeTcyMFxmb 003RAD5HfQnMXXny6Do W4ApiDqwP09xzWxvE51 iENRfkTnazD7mlInadA 5cZjBcZnMyNFxxbFxwb BHkonumANsresV4IMnm mlssUKHmTVxrF2teBlQ sJBTsuTyqMJwtd3WwSK ZlLJFgKdvqdjB9MAVKj 70tNGFqr4UfDUZekY3z fWIaTSqjliAroKM6UIz hdmUgYmVlbiBkZXZlbG 9lFKHrJU9lHHUepoPou x7ogfZmUXEdTIJwU1Kq cmlzdGljcyBkZXRlcm1 yjiAiZLL9MUIFJI4YJU KkZFPpe16eMSZmtWiuj E8gpMIfpiEsHRYxl8Dq qO5mkHUUOXNsQ8zwET3 eEGyzl4DqlVZhmBOvwE N5CKDcf5GgGwOxtmTle ZUuwOTnC5RavIsiK8na LZMgFPGvdaXjnQAfi1A oVDTkzAI7cWEjGF1AIo BVy98eQVWrIELJmhIuK FSonZrfcDE9iuS3sA9k LiBJZiBhcHBsaWNhYmx tYOYbq424tg2jnfH1RU UvEDZwyikyd6MrAFYiI UTemV05ZATzBAEoal5l wuynxDIqfaTuO3Ltfbq 2zL8qPAGpIPudWWYbST ZzMjJcbGFuZzEwMzNca GljaFxmMVxkYmNoXGYx TYurR0zrOtCqNwDwPig wYXJ9 [facility] Jckqojcdaidnsp9051-66-63 19:03:20 Test Item Value Reference Range Interpretation Comments Gross Description (test o8hvoDAvWPHniOZ0PoDhU code = [id number]) JFbg9fip7GclQGnxBRoHI exbSOydtDxoa31mXR3eE1 0YB6aXKRmLyG1KMEcspT6 Txt3BRPuREGqbLBxW027w 2vbh1imhcIwzHE6LILxGN NdJ7DoXK6hJEMcmJPlR05 kzCGgLUJ8HTHgLAGmiRAb ZGKwGXI5AQDrgVMzL8txF DGzRR1nncekOHqhFPvgMG DlxHM8OGRhlVGpZ3JwLGK uVKsyWCJsoyi7QzInEq9b cQWdaBqyIIxkKAUjp1zvE OMcmNOyCUU2ONmauDXnMC XqLFHmGTb4UZIjXKfjcDH uGO8keXtcPemlwXsew5Qu dCBcXGlkIDUxMDAyIFxcZ QDdX3INHQBkBpD5LnK4LW IxEQa7ZMuoR8WIJSRrNUR 4PWC6VBi6TqB2ZWs6UZML Uo6aOWNbXUO8EFP9QFY4F TMxMyBcXHQgMiBcXGZsIF xcZiBBcmlhbCBcXGZzIDE eEBquDbCyARniT99ugRgr xZ2kYbamekOoKMI9MDEff fufVCmxDkZqP7XoJ8yuVZ 1sTHCme5C7fgPyYlxrRQM jDdUTqINsPEH8aEd5DWFt IJZmFKL7DMygQIGzaLLkj 3sgQUMtJg3rGseKS6JjrV GtLQBlbdAIfMbkQlD4LtK wpSM7QlWbG37bqEEhWOTs hqlvHyWvF7EnB3vjVR5nN DEjsYJyD9umw9XdBMHltr Ugze0dKIJifGOTCnHYOKW 9iG1hmmwsG1JaTDGJXHbv w7dpuBbie4QkvQGvXV46H GMbaMNgNOM0IM3vlQydWW J9 Immediate Assessment Adequate cellularity (test code = 9837) Major Classification MALIGNANT A (test code = 9839) Diagnosis (test code = c1cayHLsDNZmeRM4NqRfS 34) XQvp2uva4HcqNTkpKJbZO looVJunlVlna90hEF2mQ3 2FP6uGWRtVnX7RNVvxfF9 Avv0AQYuFTPcxDQeA882u 5zsv8wbidXogWI0MFBkHW FaC3LbCF6gGBVdmIYsF80 lmOCoZDP2OAKpIGBkqSGh SJYhQWY0GYEqeBLrD2hiS KQhMN4zgjqjUKloBNsfHR EppDH4XFTcyBSaB1SaBWV fECquSADetzm9KfGaMq6z pCUemLnoLAhzF4agzA1bW jB9TUruF9gebX9nAQb6HC jiHHUjfXT5fvG6FXKmuRS wR9TncJ0mNKNgCJ7bxkf0 s3nfWDT9SZihRZFoEwV3u yJ1XIAmuDVqNOdwyBBdcs xmczIwXGNmMSBBLiBMdW5 tNLGwNKQ6FXDghVMoDXbx YmUgaGlsYXIgbWFzcywgd K05S1nieQRegWKiMUZte9 90JJRbngg3JYEfdZGzTLp pNzIwXGxpbjcyMCBTUVVB PV2NNvBHIMiMLYNXLyPEJ x2APCrfHJM6 Comment (test code = k4zqqMTaXBGotJD4CdCaC 9835) EYsd4cjv0GchUWooOReJX xjoKDlqsXbds12yRF0sT7 8WM7wBIPmEjG2XICvbbL2 Tnv9RWKfHQYgmQYdK783a 2cdd2ywsuMwlSJ0iNhqBQ SesxbwHrR0IKjgYXBaijl qLOj4EOytROFlqKZ4QDFz mEHiW5AhWWCpKM0jneu4C AV8ZDjhGNZcAjO3LHLgkB TvKRUwtUzkZJmet747ECJ 5NzIwXHBhcmRcdHgzOTYw XHBsYWluXGZzMjAgUGxlY PTyMILtZUX2vSEgO47sZ1 OgndOkbJNvzF3qw4dqykB yk8F6LCzKGnNtZJQ0FPL0 ARTxo7XlKfNcpVcapuXva dRlvYJ2cC6bErngLWU2 Retained/Biomarker x9ffgTXhFGNpiDF2UwTnS Testing (test code = HUwf6bon5TzbUKmlKDhUT 9838) gckCZycjQypb14rOS9jI0 9US9dWGCqNlO2VKTgalN6 Foe7WNZxGTRowKPuJ485s 2pfq1rgkwLvvCB9yFilUF OliknbVxD4HRlmCYJjomw hELb6UTbdEVWymGQ6NFTb pFFgL3OtMAHwGK6firt2F NI8DGetTIPmUtL1VVKulS NfBCZosNgjLZmme887RYU 4LrQqMYXqxvYahKutlW1a ZnMyMCBTUjogNCBTXHBhc yfjHLUlPjhnjFXld3MkNP Hfx2Ttbtn1EYXcdtilzBj sYPdaqM49PkJeRDHLUFMl fAimFosiN9t6WNqgyu46R EA9h1torZRdNUvkHqcvhM GhpzU2EUgCJLOLUQiRZiR dWX9hZQcGQ8HTNQlIIpak RYS3QEancEC4u5kkgZNvt 2g2ATeiECN4xT1oEPxyAz aijPV8JVqnSktavB6koFA AHCDITonTNnydroXuTG9V BOOLEE2ApKR3WnU0dUI4E L30ZTNdUZRquHJuETocA1 19XHBsYWluXGZzMjBccGF wPU5GKSLGBPV2BJikgn57 ROH7j1enxTVpKLkaTixxb MBppdL1JBrBUNZEGHoAKz ShRQ7kQDjGL9UZDUeZDlp pOBN5LKxkyLN0g8dqoRYs v1o5OTvcIVL5wI2kz2yjx CZgMMadDqcxdXFmwjJ8AU fWEEDYKDaSGyJdSV0kFXm KB7RBKfJ6WcL0YfQ3Rhgp fXtcZmxkcnNsdCBcJzFjf N0yeGmjmV1aBjUqFGfeKX IgTURMIERROiAxIFNsaWR lXHBhciBGSVNIIERROiAy ZCCrvBBbv3ffZHXwydYFF OYLEFdCC3RbWMHQBAOJZS DaSnIXVN1qZuI7FHs7SK3 7TmS3YvgnnRO7RUPOIYGH YKmMG9VhPJUAKFACGZIfI B9MUGgJKKSSWCHQN15ZKW LCDGEUL1OPU9eXSYiLRUW GCJMDH91NTWOWZJBPC1ZV ZMDZSNBOMHhLTTABUy4QV PVLTFWUPK6ZODpEVgZiUA rFLUyiG4JujCXQuP7sinx iHWQ4CNn6Zzb4Vz9iJ3nb PQDsWvD3KdfzXT8aDUeXV 7AGE4sRRKYpQMCWQARYQV OhXD8OPUjBDZ6JDOCeMTO DPCINJFAjUtDLEN2dMPgY EL0YEOWqEIEUIEGPNYAtB F2EBWMOCZ1HIGDWITRQK2 4DGGNABOAPN4HKY2xKDYX TWPCJCxBJGuKNLN4MRISB UCHKRW4OIbW6 Informational Points r4fviIRhMPPaxZHnZiUcA (test code = 9836) LBxFTEfm7kcLNYwjQAwSf EwMzNcZnRuYmpcdWMxXGR dDhXwf5rjn730sDBql0zv OHAxDjV0eJFuJMJwvTOjL 362AYBxQFrkb9sig9JkZL OqmKNwh2L2EZRAUBxuYPT PHBy8z6tpUlImEiR0wALy YTgpU4hhhxOxuROpXUQaC Yy5zV29GIWtjC4qmZEhIU igxuFuQbQ6SHgfGOLnIiE 2MVTyvKFmFAOdF8exHCEj PUrkQIGlIBtoyIVdWIT0g Hrvy8F5mPVacXAbbOdyLv WnSfSkDiOYs7DtOWm8hHd gT8GdQVFtByE8jYSqAQRt KDlvBAUcXWDwxuP0mZ11K UukknQ1zHDeq2Def76kc1 26dP8meIAzLMF8SZLgYLJ gnDRjGUWeFAG2MBBzmVGf N1qdIHTqTK6ogzsrNGpiC PbpBUBacDP1SSMbkUXaY3 FbIGRoNZnwGHVgcck8UeF bUs2klQKnyRmiZLrrr8sf u1mrsZJeTsn3VMLnQrUbW kmyWSyiy8Qtu1iiYCAxya 7mKXS3cHYovTriz3N1aIL xXGRudGJsbnNiZGJcZmV0 DTwnWB7ckx08IYVoXAY2t x7mnPUpkHascyTdcKNjSX tpX9PhPJYqj838RFXtI4B kTSIza4U1teKxHgIjYFIy fNA7vmG9VIKfULe4rUPvn mB9ggUayXAbY8ifjT8uYV UhRB9vzpvgz4kbGEcsBAx mSJRvrTL1chL3FIItoDFc J6NuyH1lQWDgXBmbNWTns fu1BpBeMo7whSXvoBdpZO xzYmtwYWdlXHBnbmNvbnR ccGduZGVjXHBsYWluXHBs YWluXGYwXGZzMjRccWxcc LqwrI1pXdNeFeBhHSrlRA 2wDQMiQ7nrsNThUTMkJCU lC9ugPnFquB8riYuiFDqk buX0KTojX09iPCE4PMQ1z yByZXBvcnRlZCBoZXJlIG 2dgQCgMCJkQITjJU9qOUQ 2ZWxvcGVkIGFuZCBwZXJm i4UpYV8yXVUqhHKyRYQ4P NHcu4GlJ6LyWSY2RDYpdO 5lZCBieSBVVCBNRCBBbmR dgsClvnWARIJnw1exM6ls MJ7fCWomHw0zRSAyfunrH WVkaWNpbmUuIFRoZXNlIH Obg4UwKXigoqTbvz83SHP dUW2ly8YeX3tvcKUdiDl6 TPTxDTAzIXPht8OyIUIrp y36ZJZjTsjjcLsgLXZsMz 5lMp7xYDKjrgPpJAO8SmH STB1hhmaxbJHlrVbgkb0x XHBsYWluXGYyXGZzMjJcb GFuZzEwMzNcaGljaFxmMl pkFnKyDFWfDNsfX4axEiW cZnMyMlxwYXJ9 Lab Interpretation (test Abnormal code = 42490-5) [facility] Roxpbucpnhlahs6630-42-47 19:03:20 Test Item Value Reference Range Interpretation Comments Gross Description (test j7bvqUPrYDFqkKE3PrTwI code = [id number]) KGun6hhx7RqmBXpiTPdZJ rvjOQesgUnoy51jUF7uA9 5QK2dJTPkIfF1NWTcwjX4 Fhw4DZCbUDYjlZOuH666c 6ubh1yrbyZujEH2XMVuKH VmI1EzZU8nYBDyaDRzO33 qoXSfZZB8IXFfWCQgkSPd LQNqQUR2JMNlyCHbM6ldC UPrWY7uukprLOqhWPvjVB FypPK4VRWogEOgU0YzUDF zJFxtDJYqusx8SrEjIu8g yXScrAjiYZevNEZtx6cnM YPshOKtJIB4KDgtvMIwAR BmRKRzGUj4AYHnSTtiqYY gAG4khYrjAuthnYrwg3Ga dCBcXGlkIDUxMDAyIFxcZ IHjQ9NHUCZdXmJ7NeR9EL QuPWr0XBimG3UEWAGnDHG 3EBW2EVo3XeV2APr5WGVY Kl4eVTVhDMP7VTX7XNT3L TMxMyBcXHQgMiBcXGZsIF xcZiBBcmlhbCBcXGZzIDE sYVuiRaAcZMzaJ18eeSew xM7xZslrmfAsWYK2KHXkk trfTQezQxLlZ1ByL3fzKJ 2kSICcr0M5wpNdYvvxZTX mKeVVqJVpAFJ1cLf6OENb KKXpMVE5GHuhKKSmmGJrf 1qdHNOaSz8cEpfES7EirT OpZJQlnwGXrUhpYsA8JnR mmBV6CjOqA94tbVEuBVAf mvrkClRkC4WzW3hvIO9xR ATywXHhC8jur5BhRODfcm Isvp0oAHTftCXTOwSOCHB 1iT0dvadiA5FvPGCMBIyw v1bmnFcyu9EalTIqIA58I TNtkJMnGJI9VI1pdGsiQE J9 Immediate Assessment Adequate cellularity (test code = 9837) Major Classification MALIGNANT A (test code = 9839) Diagnosis (test code = y2dikDPrBJKscZU5DxXlB 34) CMrz0dni3HjcGSccOGnYV iupQYdqyTyzf47lTY7pI9 4AX5aBSYaDgA2WMGrsnI1 Vpp7REPjZHLeyGViY971g 4oed5vfunZtaLD8HHWnAZ RcB2EqIZ5nJTYgvBGqU95 boEKuNVC8TJSgODWdqJQe DVNgNQN8GMLeaSAhM0shL NIwKW4iddnwHUgbMSomIL AumCJ3OSZwiOFxC5UeGVC mCQioWQXopqk8IsNfHi1g tHZkeTmfVTgvC0aqdI8nB cL3LEgmX3idjT6yZOd4CK irJLNvbLF9peW8EGRloDN kN3GuhR8dTJIpZR9gxah2 a5yoGRU8EPdaZSTmHgI5r bR7MNHsqEVkAGospLQgls xmczIwXGNmMSBBLiBMdW5 tYFGqMEU3XTNqpJNxQXqx YmUgaGlsYXIgbWFzcywgd T24C5asrYUwdKCcGKQkb6 56SLHutbc4NIMytPRwOOh pNzIwXGxpbjcyMCBTUVVB IQ4LYwNEBXjUSDSSTgZUX h2BWLgyFXD0 Comment (test code = w4pvoJDqVRHqbKR7PmKjU 9835) QWyk1iei6RboOKugPDrPF xlfUDcdwZakj91zMB9rG9 4QU0sOYGiSgF6SCAovsL2 Nzv9ISJoOLTilHSxQ960r 3cvi2jtwsFvxPU7nZshZG PyecwsIaH7NArtESUfydc fDFh9JBufWMLkrHY0PRYx tGZeD7ThIBKwMD3ykuk4X MR0CRiuJDHgHcP6MTVucU KmFBJbfKvzUMzzz574RZE 5NzIwXHBhcmRcdHgzOTYw XHBsYWluXGZzMjAgUGxlY HEiNIPcKVF4ySWxF73yM5 QnmjNppLWhcZ4jt4zqppS cd7D2NToPQaQxJVO4YYT4 PPWfq0VgCxAvnWvlysGci gAnaNY9rL5nVyreUSP9 Retained/Biomarker a2npeQNdJKEqxHS7DpUhG Testing (test code = XOdw7zjm9VleGUuhPBsTZ 9838) rghIHacnJeir80uWN4dK5 2DW3eDJVwKgR1XPVvmtY3 Syk0BTXmBLSafXGuB050p 3mol3ditjBshHG5kKntFI UnituyBlL5XDstSLKzbec bQDg9WShcXNTpsYB1UOGv vDCqZ5JrYYCzJI7jrgx8H HI5SOhoHEJyUfO3WODkkS UpRTTdxIhzBJfan533CTM 4PhYcSSGjxvOcnYaobH9m ZnMyMCBTUjogNCBTXHBhc rytCASkWetsgSBvu7LjRA Tga3Oukly4RCWhqqbmhLs bPTabqY36JrLyNSHOLVXm tDooYlcbU5j9MPsqqo00A MS7z5pfpNGySAadKvziaS FepnD0CQiCKEFQIWyXNnS qTK5cMDbFK9KXKNnVLuvy AZH0BRurqSX5f9wzdHRax 5k4KSrqKBF7fD8bLJbzRq pbqZA0EXxhUgpiqR5bvJN FOFPMIdcLPuxyjnBmZY9S JTRHJG8CcSG2HmI7bXL8J N57QJQzPICtqHMoXIzpV5 19XHBsYWluXGZzMjBccGF aFG3NGSVWPHD2QIikqr73 ONP9h0yljOWiNBoeIbxpc BRnitG6NPgZMLOWCGhGAz EyPF3tHUzSA9SYMWeJLrv oCDR7IAfutEQ9i6mudKAl k9s5NTskHMN9xP1kj4dec SLeULewKwwtsFFtbgO4PS zUCDIOBZzEYlFrSM7jNDd PG2VRCgD5IlI3WnF7Uipp fXtcZmxkcnNsdCBcJzFjf D1dsKtyaL5tTiLbGOduOQ IgTURMIERROiAxIFNsaWR lXHBhciBGSVNIIERROiAy VRRawODgd6isVKNpafVVY IEODKgSD8ZgXUSMLPPEXY QoWlPKZJ9aGdC1YWe6ZV5 5ShP4DrfjhWV3NFLETHEW UQtXM7OqBLTNNEEJKSHmV A6EAHiOJRKHZBBNA00IRF DBLPGAR6MXV1xUOMuWKTG URPMFI52PDRPHESFPH8SX CXJIJKDKEYfZBATPKf7DG XLLTIBHCI3VJGkZDpHmJG kTFPrcM7QobPBWkF9mrpt fPWU2UHa8Htr8Oc9fE5cq ZEKyTdK7QxekGZ3qRQeYK 1YCQ2fWHSSaXGASYMLYRE BoVV9TNBiKGP5BBWDsUFY CDVVPWPWbNcHYBS8oTWhV JP4HDQTcMNVKZJHDUQLoN V2BICZXFO9GLFGAFTQZL3 1UZXDLFSOHX8LYO1dMDEI CCGLFYzJVDoBILN2VZVTC SWBXQZ1JXwC1 Informational Points j1qjcLVlXRYeyLSnTqPnY (test code = 9836) BEbIEFnd1juHINdfPZtPv EwMzNcZnRuYmpcdWMxXGR aGzJio8ixl764jAWfx1rg JMObCnO5cZRvOYQxgPYsC 299ROShMUbza8kde5LyAQ VjlCCjl9A7PKNRFMtzAJJ SVMa0z5lwAoCsFkM1xFUu POvdE6xcctHdjZZoXOPrZ Bk4mI42UTQjsU6vbQJzWS sdkhReJhC9ANunKIWmKzN 9REKehTFcWRVaI9zbHENp ZXgmRYXrUMohnREiHZN7b Bswy7W3jCEaiMAydQxmDo WmPuZmClRHe7EbOXj9mFf zR9SaVIOdJzZ1nDLvVPNn DBvdUETmFUVdibV5uV90A VjkceQ9xTWyw8Ffj98el1 02kA1dgGRmECP0FVTnVDQ azCSgONQkSTO7SBRqjKXh K6klOYTfXE7sezdfYTvdK DopSTNasSP2NPJxcBNtN7 BeUKFpBZpwQNBeatj0MyN wGb6tmBByfAzkVZuhd9ji m1pejYJqDwy3HLYiXaRuL euvCIuly3Ekc6wkYEBrcm 1iRJH7zRSorIcin0D3uDG xXGRudGJsbnNiZGJcZmV0 JMbtQE3mqr85TRHoBLA4v x1fhBHbtRubufTxsPUaKE lhC0JgYVRqw688LRUkC5D gZVBdz8M0gnFkBrMyLNTh iLM6hpO8XFQrAAe0dEGzu zC0pnPczGCqB4zfaD6wZJ HsQU3cydpwo6alSYwdYEd wMCBrcXR8hbW0DZMiaOXa Z3OjfZ4qOWDyESxkFGEuh ox0FeGsBp2zfBPraAbrOS xzYmtwYWdlXHBnbmNvbnR ccGduZGVjXHBsYWluXHBs YWluXGYwXGZzMjRccWxcc RdczT1hOkHwJzKaILuuPZ 2wFIUsY5hooEQjLNTcHBI qI0hvTpOgqP1ehAzeZNyb uuB9FLfmK72lPBI5IYC5c yByZXBvcnRlZCBoZXJlIG 4spLDsVZQqYSAdPE5mGBW 2ZWxvcGVkIGFuZCBwZXJm v5GiXB3zLVKbyEUuCGR0O QTrj1QnZ7VlFZU1AIIfzA 5lZCBieSBVVCBNRCBBbmR cfuTgesDBGGLff9wsJ4sr AW9hDRbuDg3yLQDjbvftL WVkaWNpbmUuIFRoZXNlIH Grz7SzNSfbsiWzzx73LOQ aPK0jr3PuG9mceFAeoFk9 KVPlVYNaVLBwy4HtDMByh c16ABVtPghieZghUXKlLt 6yWy9zLGSghnUyVEE0BaC TUJ2myqvghURsqOlibx0v XHBsYWluXGYyXGZzMjJcb GFuZzEwMzNcaGljaFxmMl jfTvHxOOPuHCclS8hiNjB cZnMyMlxwYXJ9 Lab Interpretation (test Abnormal code = 81381-9) [facility] ([place], DLCO, [place]) 2021-12-15 00:00:00 Test Item Value Reference Range Interpretation Comments FVC (L) pre (test code = 1.112 L 2.256-3.497 L 9507) FEV1 (L) pre (test code 0.400 L 1.693-2.742 L = 9505) FEV1/FVC (%) pre (test 35.933 % 68.052-87.641 L code = 9509) DLCO_SB ml/(min*mmHg) 5.682 See_Comment L [Auto mated message] (test code = 9515) The syste Anzu which generated this result transmitted ref erence range: 6.297 - 26.463 ml/(min*mmHg). The reference range was not used to int erpret this result as normal/abnormal . DLCOc_SB ml/(min*mmHg) 5.831 See_Comment L [Aut omated message] (test code = 9516) The syste Anzu which generated this result transmitted ref erence [...] 9530) Lab Interpretation (test Abnormal code = 41990-6) [facility] ([place], DLCO, LV) 2021-12-15 00:00:00 Test Item Value [...] 9530) Lab Interpretation (test Abnormal code = 39877-3) [facility] (ROSE-CoV-2) PCR [id number] 23:37:30 Test Item Value Reference Interpretation Comments Range COVID19 SARS Pre-Out of OR Procedure Indication (test code = 84758) COVID19 SARS Result Not Detected Not Detected (test code = 91810-8) COVID19 SARS SARS-CoV-2 NOT Detected. Interpretation (test Reference Range: Not code = 90945) Detected Methodology: The Humphrey RealTime SARS-CoV-2 assay is a qualitative real-time reverse truck operator polymerase chain reaction (community director-PCR) test to detect RNA from SARS-CoV-2 in nasal, nasopharyngeal and oropharyngeal swabs from patients with signs and symptoms of infection who are suspected of COVID-19 by their health care provider. The Humphrey RealTime SARS-CoV-2 performed on the Smashrun000 System is a dual target assay with [...] CLIA-certified, high-complexity Molecular Diagnostics Laboratory (MDL) at [facility] under the Food and Drug Administration (FDA) s Emergency Use Authorization. Factsheet for patients: https://www.mdanderson.org/ AbbottFactSheetPatientsFact sheet for healthcare providers: https://www.[facility] hospitalnderson.org/ AbbottFactSheetHCP Test performed by:[facility] Molecular Diagnostic [address] [place] [address] [facility] COVID-19 (ROSE-CoV-2) PCR [id number] 23:37:30 Test Item Value Reference Interpretation Comments Range COVID19 SARS Pre-Out of OR Procedure Indication (test code = 83843) COVID19 SARS Result Not Detected Not Detected (test code = 37933-5) COVID19 SARS SARS-CoV-2 NOT Detected. Interpretation (test Reference Range: Not code = 30883) Detected Methodology: The Humphrey RealTime SARS-CoV-2 assay is a qualitative real-time reverse truck operator polymerase chain reaction (community director-PCR) test to detect RNA from SARS-CoV-2 in nasal, nasopharyngeal and oropharyngeal swabs from patients with signs and symptoms of infection who are suspected of COVID-19 by their health care provider. The Humphrey RealTime SARS-CoV-2 performed on the Smashrun000 System is a dual target assay with [...] CLIA-certified, high-complexity Molecular Diagnostics Laboratory (MDL) at [facility] under the Food and Drug Administration (FDA) s Emergency Use Authorization. Factsheet for patients: https://www.mdanderson.org/ AbbottFactSheetPatientsFact sheet for healthcare providers: https://www.mdanderson.org/ AbbottFactSheetHCP Test performed by:[facility] Molecular Diagnostic [address] [place] [address] [facility] CenterCoccidioides [id number] 21:25:30 Test Item Value Reference Range Interpretation Comments Cocci Comp Fix-Nguyen Negative Negative (test code = 5096-3) Cocci IgG-Nguyen Negative Negative (test code = 79710-7) Cocci IgM-Nguyen Negative Negative A negative co mplement (test code = fixation and 69197-3) immunodiffusion (CompF/ImmD iff) result dumont s not exclude the hector gnosis ofcoccidioidomy cosis. Repeat testing by CompF/ImmDiff i n 2-3weeks if clinically i ndicated. Test Performed by:[facility] ior [id number] [facility] [place] [facility] [place] [address] [place], [place] [address]Nuu Director: James Wu M.D. Ph. D.; CLIA# [id number] [facility]ino[facility]occidio[facility] [id number] 21:25:30 Test Item Value Reference Range Interpretation Comments Cocci Comp Fix-Nguyen Negative Negative (test code = 5096-3) Cocci IgG-Nguyen Negative Negative (test code = 99024-7) Cocci IgM-Nguyen Negative Negative A negative co mplement (test code = fixation and 23184-3) immunodiffusion (CompF/ImmD iff) result dumont s not exclude the hector gnosis ofcoccidioidomy cosis. Repeat testing by CompF/ImmDiff i n 2-3weeks if clinically i ndicated. Test Performed by:[facility] ior [id number] [facility] [place] [facility] [place] MeetDoctorr [employer] [place], [place] [address]Jua Director: James Wu M.D. Ph. D.; CLIA# [id number] [facility] CenterHistoplasma Ab Lejrlq4080-08-07 17:45:02 Test Item Value Reference Range Interpretation Comments Histo Immuno Negative Negative A negative comp lement Ab-Nguyen (test code fixation and = 44638-7) immunodiffusion (CF/ID)result d oes not exclude the hector gnosis of histoplasmosis. Repeat testing by CF/I D in 1-2 weeks if clinicallyindic ated. Test Performed by:[address] [address]Lvx Direct or: Jerry Wu M.D. Ph.D.; CLIA# [id number] Histo Mycel Negative Negative Ab-Nguyen (test code = 91359-3) Histo Yeast Negative Negative Ab-Nguyen (test code = 19470-0) [facility] CenterHistoplasma Ab [id number] 17:45:02 Test Item Value Reference Range Interpretation Comments Histo Immuno Negative Negative A negative comp lement Ab-Nguyen (test code fixation and = 60223-2) immunodiffusion (CF/ID)result d oes not exclude the hector gnosis of histoplasmosis. Repeat testing by CF/I D in 1-2 weeks if clinicallyindic ated. Test Performed by:[facility] [place] [address] [facility] [address], [place], [place] [address]Deq Direct or: Jerry Wu M.D. Ph.D.; CLIA# [id number] Histo Mycel Negative Negative Ab-Nguyen (test code = 15496-9) Histo Yeast Negative Negative Ab-Nguyen (test code = 45704-2) [facility] CenterT-spot [id number] 17:15:54 Test Item Value Reference Range Interpretation [...] of othe r diagnostic eval uations. TheT-SPOT.TB te st is qualitative and results are reported aspositive, [...] (test by:Lab Mnemonic : code = 9399) [id number] DIAGNO STICS TB, [id number] DISTRI[facility]ION [facility] HOSPITALMyke N [id number] MARIEL CONTRERAS MD,PHD Tspot TB NIL Passed Cont (test code = 9396) ZAKIA (test If scheduling this code = ZAKIA) lab at one of the following locations, it can only be collected on Tuesday, Tuesday, and Tuesday due to collection/process ing restrictions:[facility] LAB [facility] DA[facility] LAB [facility] DIAG LAB CTRCA - CABI DIAG LAB [facility]inoT-spot Crdewmwiylav8598-65-44 17:15:54 Test Item Value Reference Range Interpretation [...] of othe r diagnostic eval uations. TheT-SPOT.TB te st is qualitative and results are reported aspositive, [...] (test by:Lab Mnemonic : code = 9399) [id number] DIAGNO STICS TB, [id number] DISTRIBUTION [facility] [id number] MARIEL CONTRERAS MD,PHD Tspot TB NIL Passed Cont (test code = 9396) ZAKIA (test If scheduling this code = ZAKIA) lab at one of the following locations, it can only be collected on Tuesday, Tuesday, and Tuesday due to collection/process ing restrictions:[facility] - REG DIAG LAB CTR[place] - REGSL DIAG LAB [facility] REG[facility] DIAG LAB [facility] DAIG LAB [facility]Ni[facility] DIAG LAB [facility] - [facility] DIAG LAB CTR [facility] CenterCryptococcal Ag Serum Path Review 2021-12-10 20:55:17Crypto Ag, Serum PRReviewed and Electronically signed by Pathologist:WILL HAWKINS MD #[id number] [facility] PHOENIXUnUniversity Medical CenterCryptococcal Ag Serum Path Moahjh7734-69-29 20:55:17Crypto Ag, Serum PRReviewed and Electronically signed by Pathologist:WILL HAWKINS MD #[id number] [facility] PHOENIXUnUniversity Medical CenterHepatitis B Core Total Hjrpghxk1872-82-79 16:21:33 Test Item Value Reference Range Interpretation Comments HBc Total Ab-[place] Negative Negative Test Perf ormed by:[place] (test code = [facility] - 11313-8) [place] [employer] [address] [employer] [place], [place] [address]Wia Director: James Wu M.D. Ph. D.; CLIA# [id number] [facility] B Core Total Antibody 2021-12-10 16:21:33 Test Item Value Reference Range Interpretation Comments HBc Total Ab-[place] Negative Negative Test Perf ormed by:[place] (test code = [facility] - 98879-7) [place] [employer] [address] [employer] [place], [place] [address]Ygi Director: James Wu M.D. Ph. D.; CLIA# [id number] [facility] CenterHepatitis B Surface Ag w/Confirm 2021-12-10 16:04:05 Test Item Value Reference Range Interpretation Comments Hep Bs Ag-[place] Negative Negative Test Perform ed by:[place] (test code = [facility] - 5196-1) [place] [employer] Fzsdu[address]1 [employer] [place], [place] [address]Mom Director: James Wu M.D. Ph. D.; CLIA# [id number] [facility] CenterHepatitis B Surface Ag w/Confirm 2021-12-10 16:04:05 Test Item Value Reference Range Interpretation Comments Hep Bs Ag-[place] Negative Negative Test Perform ed by:[place] (test code = [facility] - 5196-1) [place] [employer] [address] [employer] [place] [id number] Director: James Wu M.D. Ph. D.; CLIA# [id number] [facility] HCV Ab Path [id number] 13:22:12 Test Item Value Reference Range Interpretation Comments HCV Ab Path There is NO Interp (test serologic code = 8923) evidence of ____EDUARDA CARBAJAL MD Hepatitis C - 39737Axfwznig by: virus antibody. EDUARDA PERSON MD - [id number] D ate/Time: 12.10.2021 8:22 AM CDT Transcribed Yousif e/Time: 12.10.2021 8:22 AM CDTElectronical ly Signed By: EDUARDA CARBAJAL MD - [id number] on 11.27 8:22 AM C [facility] HCV Ab Path [id number] 13:22:12 Test Item Value Reference Range Interpretation Comments HCV Ab Path There is NO Interp (test serologic code = 8923) evidence of ____EDUARDA CARBAJAL MD Hepatitis C - 95[address]Gejboihk by: virus antibody. EDUARDA PERSON MD - 19813Qsusleio D ate/Time: 12.10.2021 8:22 AM CDT Transcribed Yousif e/Time: 12.10.2021 8:22 AM CDTElectronical ly Signed By: EDUARDA CARBAJAL MD - [id number] on 11.27 8:22 AM C [facility] CenterHepatitis C Virus [id number] 23:46:16 Test Item Value Reference Range Interpretation Comments HCVAb. (test Non Reactive Non Reactive Antibody detect ion in the code = 5762) immunocompromis ed and immunosuppresse d population may be delayed or absent entirely. There fore serial testing, correl ation with other clinical findings, and supplementa l testing (if available) should be taken into cons ideration when interpreti ng the results.Perform ed at:[facility] Blood Donor [address] [place], [place] [address] [facility] CenterHepatitis C Virus [id number] 23:46:16 Test Item Value Reference Range Interpretation Comments HCVAb. (test Non Reactive Non Reactive Antibody detect ion in the code = 5762) immunocompromis ed and immunosuppresse d population may be delayed or absent entirely. There fore serial testing, correl ation with other clinical findings, and supplementa l testing (if available) should be taken into cons ideration when interpreti ng the results.Perform ed at:[facility] Blood Donor [id number] [place], [place] [address] [facility] CenterCryptococcal Antigen, Serum 2021-12-09 20:05:59 Test Item Value Reference Range Interpretation Comments Cryptococcal Ag Screen Serum Interp Negative Negative (test code = 28987-8) [facility] CenterCryptococcal Antigen, Serum 2021-12-09 20:05:59 Test Item Value Reference Range Interpretation Comments Cryptococcal Ag Screen Serum Interp Negative Negative (test code = 32294-1) [facility] CenterTSH2022-04-12 23:58:49 Test Item Value Reference Range Interpretation Comments TSH (test code = 0.47 See_Comment [Automated message] The 02632-2) system which ge nerated this result transmit milana reference range : 0.27 - 4.20 mcunit/mL. The reference range was not used to interpr et this result as kirstin l/abnormal. [facility] B Surface [id number] 23:47:01 Test Item Value Reference Range Interpretation Comments HBsAg Received (test See Note HBsAg w as sent to a code = 92919) reference lab for testing. Expect results on Hepatitis B Surface Antigen w/ Conf irm within 96 hours . [facility] B Surface [id number] 23:47:01 Test Item Value Reference Range Interpretation Comments HBsAg Received (test See Note HBsAg w as sent to a code = 22518) reference lab for testing. Expect results on Hepatitis B Surface Antigen w/ Conf irm within 96 hours . [facility] B Total Ig Core Ab (SCREENING) (anti-HBc total Ig; HBcAb total Ig)2021-12-08 23:47:00 Test Item Value Reference Range Interpretation Comments HBcAb Received (test See Note HBcAb w as sent to a code = 05774) reference lab for testing. Expect results on Hepatitis B Core Total Ab within 96 hours. [facility] B Total Ig Core Ab (SCREENING) (anti-HBc total Ig; HBcAb total Ig)2021-12-08 23:47:00 Test Item Value Reference Range Interpretation Comments HBcAb Received (test See Note HBcAb w as sent to a code = 15882) reference lab for testing. Expect results on Hepatitis B Core Total Ab within 96 hours. [facility] CenterRAD, [facility]ST, PA OR AP, 1 VIEW 2017-08-01 09:05:00Reason for exam:->post-opFINAL REPORT Chest one view. Clinical history: post-op Comparison: June Discussion: A frontal chest is provided. Cardiomediastinal contours are unchanged. Right IJ line has been removed. There is patchy retrocardiac opacity is slightly improved since the previous exam. A small left effusion is present. No pneumothorax. Signed: Hemant Paigeort Verified Date/Time: 08/01/2017 09:05:03 Reading Location: [facility] Reading Room [id number] 06:58:00 Test Item Value Reference Range Interpretation Comments MAGNESIUM (BEAKER) (test code = 1.8 mg/dL 1.6-2.6 627) CBC W/PLT COUNT & AUTO [id number] 05:44:00 Test Item Value Reference Range Interpretation [...] = 2801) CBC W/PLT COUNT & AUTO [id number] 07:13:00 Test Item Value Reference Range Interpretation [...] 0-1 PERCENT (BEAKER) (test code = 2801) [id number] 04:08:00 Test Item Value Reference Range Interpretation Comments MAGNESIUM (BEAKER) (test code = 1.3 mg/dL 1.6-2.6 L 627) BASIC METABOLIC [id number] 04:08:00 Test Item Value Reference Range Interpretation [...] NOT APPLICABLE FOR DIALYSIS PATIEN TS. POCT-GLUCOSE [id number] 12:53:00 Test Item Value Reference Range Interpretation Comments POC-GLUCOSE METER 192 mg/dL 70-110 H TESTED AT [facility] 6720 (BEAKER) (test code = KARINA Betts [place] 1538) [address] POCT-GLUCOSE [id number] 07:54:00 Test Item Value Reference Range Interpretation Comments POC-GLUCOSE METER 129 mg/dL 70-110 H TESTED AT [facility] 6720 (BEAKER) (test code = KARINA Betts [facility] 1538) [address] BASIC METABOLIC [id number] 05:37:00 Test Item Value Reference Range Interpretation [...] PATIEN TS. CBC W/PLT COUNT & AUTO [id number] 05:07:00 Test Item Value Reference Range Interpretation [...] PERCENT (BEAKER) (test code = 2801) POCT-GLUCOSE [id number] 21:03:00 Test Item Value Reference Range Interpretation Comments POC-GLUCOSE METER 239 mg/dL 70-110 H TESTED AT [facility] 6720 (BEAKER) (test code = KARINA [place] 1538) [address] POCT-GLUCOSE [id number] 17:20:00 Test Item Value Reference Range Interpretation Comments POC-GLUCOSE METER 201 mg/dL 70-110 H TESTED AT [facility] 6720 (BEAKER) (test code = KARINA [place] 1538) [address] HEMOGLOBIN AND [id number] 16:41:00 Test Item Value Reference Range Interpretation Comments HEMOGLOBIN (BEAKER) (test code = 9.8 GM/DL 11.2-15.7 L 410) HEMATOCRIT (BEAKER) (test code = 29.3 % 34.1-44.9 L 411) Draw after transfusion has been completed.POCT-GLUCOSE [id number] 12:59:00 Test Item Value Reference Range Interpretation Comments POC-GLUCOSE METER 133 mg/dL 70-110 H TESTED AT [place] [address] ([facility]) (test code = KARINA Betts [facility] 1538) [address] URINE [id number] 11:53:00 Test Item Value Reference Range Interpretation Comments CULTURE (BEAKER) (test code = 1095) No growth POCT-GLUCOSE [id number] 09:34:00 Test Item Value Reference Range Interpretation Comments POC-GLUCOSE METER 97 mg/dL 70-110 TESTED AT [place] [address] ([facility]) (test code = KARINA Betts [facility] [address]38) CBC W/PLT COUNT & AUTO [id number] 05:55:00 Test Item Value Reference Range Interpretation [...] (BEAKER) (test code = 2801) BASIC METABOLIC [id number] 05:53:00 Test Item Value Reference Range Interpretation [...] NOT APPLICABLE FOR DIALYSIS PATIEN TS. POCT-GLUCOSE [id number] 21:23:00 Test Item Value Reference Range Interpretation Comments POC-GLUCOSE METER 142 mg/dL 70-110 H TESTED AT [place] [address] ([facility]) (test code = KARINA Betts [facility] 1538) [address] RAD, CHEST, 1 VIEW, NON [id number] 15:31:00Reason for exam:->post ct removalFINAL REPORT TECHNIQUE: Frontal chest radiograph dated 07/28/2017. CLINICAL HISTORY: Post CT removal COMPARISON STUDY: Chest radiograph performed earlier the same day IMPRESSION:Left-sided chest tubes been removed. Right internal jugular venous catheter is unchanged. There is a tubular structure projected over the right axilla, possibly a PICC. Left lung base opacity and pleural effusion are stable. No pneumothorax. Cardiomediastinal silhouette is normal in size. No pulmonary edema. Midline sternotomy wires are intact and well aligned. Degenerative changes are seen in the spine. Signed: Augustina Lópezepdiomedes Verified Date/Time: 07/28/2017 15:31:00 Reading Location: [facility] Radiology Reading Room POCT-GLUCOSE [id number] 12:12:00 Test Item Value Reference Range Interpretation Comments POC-GLUCOSE METER 100 mg/dL 70-110 TESTED AT [place] [address] ([facility]) (test code = KARINA Betts [facility] 1538) [address] POCT-GLUCOSE [id number] 06:41:00 Test Item Value Reference Range Interpretation Comments POC-GLUCOSE METER 143 mg/dL 70-110 H TESTED AT [place] [address] ([facility]) (test code = KARINA Betts [facility] 1538) [address] RAD, CHEST, 1 VIEW, NON [id number] 05:13:00Reason for exam:->Post opShould this be performed at the bedside?->YesFINAL REPORT RAD, CHEST, 1 VIEW, NON DEPT INDICATION: Post op COMPARISON: Priorday's exam FINDINGS: Portable frontal view of the [...] Cervantes Verified Date/Time: 07/28/2017 05:13:19 Reading Location: [place] [id number] Body Reading Room BLOOD GAS, [id number] 05:03:00 Test Item Value Reference Range Interpretation [...] (BEAKER) (test code = 1819) 36.0 % [id number] 04:52:00 Test Item Value Reference Range Interpretation Comments PROTIME (BEAKER) (test code = 14.9 seconds 11.7-14.7 H 759) INR (BEAKER) (test code = 370) 1.2 <=5.9 PARTIAL THROMBOPLASTIN TIME 36.9 seconds 22.5-36.0 H (BEAKER) (test code = 760) RECOMMENDED COUMADIN/WARFARIN INR THERAPY RANGESSTANDARD DOSE: 2.0 - 3.0 Includes: PROPHYLAXIS for venous thrombosis, systemic embolization; TREATMENT for venous thrombosis and/or pulmonary embolus.HIGH RISK: Target INR is 2.5-3.5 for patients with mechanical heart valves.[id number] 04:39:00 Test Item Value Reference Range Interpretation Comments MAGNESIUM (BEAKER) (test code = 1.9 mg/dL 1.6-2.6 627) BASIC METABOLIC [id number] 04:39:00 Test Item Value Reference Range Interpretation [...] PATIEN TS. CBC W/PLT COUNT & AUTO [id number] 04:24:00 Test Item Value Reference Range Interpretation [...] 0-1 PERCENT (BEAKER) (test code = 2801) [id number] 01:03:00 Test Item Value Reference Range Interpretation Comments POTASSIUM (BEAKER) (test code = 4.0 meq/L 3.5-5.1 379) [id number] 01:03:00 Test Item Value Reference Range Interpretation Comments MAGNESIUM (BEAKER) (test code = 2.0 mg/dL 1.6-2.6 627) POCT-GLUCOSE [id number] 01:01:00 Test Item Value Reference Range Interpretation Comments POC-GLUCOSE METER 150 mg/dL 70-110 H TESTED AT [facility] 6720 (BEAKER) (test code = [place] [address]32) [address] HEMOGLOBIN AND [id number] 00:51:00 Test Item Value Reference Range Interpretation Comments HEMOGLOBIN (BEAKER) (test code = 8.3 GM/DL 11.2-15.7 L 410) HEMATOCRIT (BEAKER) (test code = 24.0 % 34.1-44.9 L 411) CALCIUM, [id number] 00:48:00 Test Item Value Reference Range Interpretation Comments CALCIUM IONIZED (BEAKER) (test 1.25 mmol/L 1.12-1.27 code = 698) PH, BLOOD (BEAKER) (test code = 7.39 1810) BLOOD GAS, [id number] 20:03:00 Test Item Value Reference Range Interpretation [...] (test code = 1819) 32.0 % POCT-GLUCOSE [id number] 18:26:00 Test Item Value Reference Range Interpretation Comments POC-GLUCOSE METER 169 mg/dL 70-110 H TESTED AT [facility] 6720 (BEAKER) (test code = KARINA [place] 1538) [address] BLOOD GAS, [id number] 16:32:00 Test Item Value Reference Range Interpretation [...] code = 1819) 40.0 % HEMOGLOBIN AND [id number] 15:45:00 Test Item Value Reference Range Interpretation Comments HEMOGLOBIN (BEAKER) (test code = 8.9 GM/DL 11.2-15.7 L 410) HEMATOCRIT (BEAKER) (test code = 25.6 % 34.1-44.9 L 411) FACTOR 10 [id number] 15:30:00 Test Item Value Reference Range Interpretation Comments FACTOR X ACTIVITY (BEAKER) (test code 79.0 % 70.0-120.0 = 662) [id number] 13:47:00 Test Item Value Reference Range Interpretation Comments FIBRINOGEN LEVEL (BEAKER) (test 567 mg/dl 225-434 H code = 658) PROTHROMBIN [id number] 13:47:00 Test Item Value Reference Range Interpretation Comments PROTIME (BEAKER) (test code = 17.5 seconds 11.7-14.7 H 759) INR (BEAKER) (test code = 370) 1.4 <=5.9 RECOMMENDED COUMADIN/WARFARIN INR THERAPY RANGESSTANDARD DOSE: 2.0 - 3.0 Includes: PROPHYLAXIS for venous thrombosis, systemic embolization; TREATMENT for venous thrombosis and/or pulmonary embolus.HIGH RISK: Target INR is 2.5-3.5 for patients with mechanical heart valves.[id number] 13:47:00 Test Item Value Reference Range Interpretation Comments PARTIAL THROMBOPLASTIN TIME 35.0 seconds 22.5-36.0 (BEAKER) (test code = 760) RAD, CHEST, 1 VIEW, NON [id number] 13:16:00Reason for exam:->Post OpShould this be performed at the bedside?->YesFINAL REPORT Chest one view. Clinical history: Post Op Comparison: June Discussion: A frontal chest is provided. Cardiomediastinal contours are unchanged. ETT is 3.5 cm above the joe. A feeding tube projects below the diaphragm. Right IJ line projects over the SVC.There is a left chest tube, and a mediastinal drain. Small patchy foci of opacities at the left mid to lower lung likely reflects atelectasis. Right lung is clear. No vascular congestion, pneumothorax,or significant effusion. Status post median sternotomy. Signed: Hemant Paige Verified Date/Time: 07/27/2017 13:16:03 Reading Location: [facility] B1 [id number] Consult Reading Room THROMBOELASTOGRAPH (TEG)2017-07-27 12:58:00 Test Item Value Reference Range [...] = 1414) CBC W/PLT COUNT & AUTO [id number] 12:37:00 Test Item Value Reference Range Interpretation [...] 0-1 PERCENT (BEAKER) (test code = 2801) [id number] 12:19:00 Test Item Value Reference Range Interpretation Comments MAGNESIUM (BEAKER) (test code = 2.9 mg/dL 1.6-2.6 H 627) COMPREHENSIVE METABOLIC [id number] 12:19:00 Test Item Value Reference Range Interpretation [...] DIALYSIS PATIEN TS. LACTIC ACID, ARTERIAL, WHOLE [id number] 12:14:00 Test Item Value Reference Range Interpretation Comments LACTATE BLOOD ARTERIAL (2) 0.9 mmol/L 0.5-2.2 (BEAKER) (test code = 2874) Effective 12/31/2015: Units/Reference Range ChangeNew: 0.5-2.2 mmol/L Previous: 5- 20 mg/dLOXYGEN SATURATION, [id number] 11:46:00 Test Item Value Reference Range Interpretation Comments O2 SATURATION (MEASURED) (BEAKER) 81.7 % (test code = 1455) BLOOD GAS, [id number] 11:44:00 Test Item Value Reference Range Interpretation [...] code = 1819) 60.0 % SODIUM NA-STAT [id number] 11:44:00 Test Item Value Reference Range Interpretation Comments SODIUM (BEAKER) (test code = 381) 130 meq/L 135-148 L GLUCOSE-STAT [id number] 11:44:00 Test Item Value Reference Range Interpretation Comments GLUCOSE RANDOM (BEAKER) (test code 194 mg/dL 70-110 H = 652) HGB/HCT (H&H) - STAT [id number] 11:44:00 Test Item Value Reference Range Interpretation Comments HEMOGLOBIN (BEAKER) (test code = 8.1 g/dL 12.0-15.0 L 410) HEMATOCRIT (BEAKER) (test code = 24.0 % 36.0-45.0 L 411) FILTER IONIZED [id number] 11:44:00 Test Item Value Reference Range Interpretation Comments FILTER IONIZED CALCIUM (BEAKER) 1.35 nnol/L (test code = 1854) Reference Range: No NormalsPOTASSIUM-STAT [id number] 11:43:00 Test Item Value Reference Range Interpretation [...] MM 55.0-65.0 (test code = 1413) PLATELET [id number] 11:08:00 Test Item Value Reference Range Interpretation Comments PLATELET COUNT (BEAKER) (test 142 K/CU MM 150-450 L code = 756) CALCIUM, [id number] 10:35:00 Test Item Value Reference Range Interpretation Comments CALCIUM IONIZED (BEAKER) (test 0.91 mmol/L 1.12-1.27 L code = 698) PH, BLOOD (BEAKER) (test code = 7.31 1810) BLOOD GAS, [id number] 10:35:00 Test Item Value Reference Range Interpretation [...] code = 1819) 100.0 % SODIUM NA-STAT [id number] 10:35:00 Test Item Value Reference Range Interpretation Comments SODIUM (BEAKER) (test code = 381) 130 meq/L 135-148 L GLUCOSE-STAT [id number] 10:35:00 Test Item Value Reference Range Interpretation Comments GLUCOSE RANDOM (BEAKER) (test code 194 mg/dL 70-110 H = 652) HGB/HCT (H&H) - STAT [id number] 10:35:00 Test Item Value Reference Range Interpretation Comments HEMOGLOBIN (BEAKER) (test code = 10.3 g/dL 12.0-15.0 L 410) HEMATOCRIT (BEAKER) (test code = 30.0 % 36.0-45.0 L 411) POTASSIUM-STAT [id number] 10:34:00 Test Item Value Reference Range Interpretation Comments POTASSIUM (BEAKER) (test code = 5.1 meq/L 3.6-5.5 379) [id number] 10:26:00 Test Item Value Reference Range Interpretation Comments ACTIVATED CLOTTING TIME 131 sec TEST ED AT [place] [address] ([facility]) (test code = [place] [address]) [id number] 10:26:00 Test Item Value Reference Range Interpretation Comments ACTIVATED CLOTTING TIME 521 sec TEST ED AT [place] [address] ([facility]) (test code = [place] [address]) [id number] 10:26:00 Test Item Value Reference Range Interpretation Comments ACTIVATED CLOTTING TIME 521 sec TEST ED AT [place] [address] ([facility]) (test code = [place] [address]) [id number] 10:26:00 Test Item Value Reference Range Interpretation Comments ACTIVATED CLOTTING TIME 505 sec TEST ED AT [place] [address] ([facility]) (test code = [place] [address]) [id number] 10:17:00 Test Item Value Reference Range Interpretation Comments FIBRINOGEN LEVEL ([facility]) (test 536 mg/dl 225-434 H code = 658) [id number] 10:17:00 Test Item Value Reference Range Interpretation Comments PARTIAL THROMBOPLASTIN TIME 38.7 seconds 22.5-36.0 H ([facility]) (test code = 760) PROTHROMBIN [id number] 10:16:00 Test Item Value Reference Range Interpretation Comments PROTIME ([facility]) (test code = 18.8 seconds 11.7-14.7 H 759) INR ([facility]) (test code = 370) 1.6 <=5.9 RECOMMENDED COUMADIN/WARFARIN INR THERAPY RANGESSTANDARD DOSE: 2.0 - 3.0 Includes: PROPHYLAXIS for venous thrombosis, systemic embolization; TREATMENT for venous thrombosis and/or pulmonary embolus.HIGH RISK: Target INR is 2.5-3.5 for patients with mechanical heart valves.PLATELET AGGREGATION: FUNCTION SCREEN 2017-07-27 10:14:00 Test Item Value Reference Range Interpretation Comments WEAK ADP 51 % 60-91 L RESULT([facility]) (test code = 2135) PLATELET FUNCTION 50-59% indicates mild SCREEN INTERP platelet dysfunction ([facility]) (test code = 2173) [id number] Yuri Quijano M.D. (BEAKER) (test code = (electonic signature) 1995) PLATELET COUNT AGG 410 K/CU MM 150-450 (BEAKER) (test code = 9630) for patients on clopidogrel in past two weeksCALCIUM, [id number] 09:46:00 Test Item Value Reference Range Interpretation Comments CALCIUM IONIZED (BEAKER) (test 1.41 mmol/L 1.12-1.27 H code = 698) PH, BLOOD (BEAKER) (test code = 7.30 1810) BLOOD GAS, [id number] 09:45:00 Test Item Value Reference Range Interpretation [...] code = 1819) 100.0 % SODIUM NA-STAT [id number] 09:45:00 Test Item Value Reference Range Interpretation Comments SODIUM (BEAKER) (test code = 381) 124 meq/L 135-148 L POTASSIUM-STAT [id number] 09:45:00 Test Item Value Reference Range Interpretation Comments POTASSIUM (BEAKER) (test code = 5.8 meq/L 3.6-5.5 H 379) GLUCOSE-STAT [id number] 09:45:00 Test Item Value Reference Range Interpretation Comments GLUCOSE RANDOM (BEAKER) (test code 172 mg/dL 70-110 H = 652) HGB/HCT (H&H) - STAT [id number] 09:45:00 Test Item Value Reference Range Interpretation Comments HEMOGLOBIN (BEAKER) (test code = 8.6 g/dL 12.0-15.0 L 410) HEMATOCRIT (BEAKER) (test code = 25.0 % 36.0-45.0 L 411) BLOOD GAS, [id number] 09:31:00 Test Item Value Reference Range Interpretation [...] code = 1819) 75.0 % SODIUM NA-STAT [id number] 09:31:00 Test Item Value Reference Range Interpretation Comments SODIUM (BEAKER) (test code = 381) 124 meq/L 135-148 L GLUCOSE-STAT [id number] 09:31:00 Test Item Value Reference Range Interpretation Comments GLUCOSE RANDOM (BEAKER) (test code 162 mg/dL 70-110 H = 652) HGB/HCT (H&H) - STAT [id number] 09:31:00 Test Item Value Reference Range Interpretation Comments HEMOGLOBIN (BEAKER) (test code = 8.8 g/dL 12.0-15.0 L 410) HEMATOCRIT (BEAKER) (test code = 26.0 % 36.0-45.0 L 411) POTASSIUM-STAT [id number] 09:31:00 Test Item Value Reference Range Interpretation Comments POTASSIUM (BEAKER) (test code = 6.2 meq/L 3.6-5.5 HH 379) BLOOD GAS, [id number] 09:09:00 Test Item Value Reference Range Interpretation [...] (test code = 1819) 70.0 % GLUCOSE-STAT [id number] 09:09:00 Test Item Value Reference Range Interpretation Comments GLUCOSE RANDOM (BEAKER) (test code 150 mg/dL 70-110 H = 652) POTASSIUM-STAT [id number] 09:08:00 Test Item Value Reference Range Interpretation Comments POTASSIUM (BEAKER) (test code = 5.5 meq/L 3.6-5.5 379) HGB/HCT (H&H) - STAT [id number] 09:08:00 Test Item Value Reference Range Interpretation Comments HEMOGLOBIN (BEAKER) (test code = 7.6 g/dL 12.0-15.0 L 410) HEMATOCRIT (BEAKER) (test code = 22.0 % 36.0-45.0 L 411) SODIUM NA-STAT [id number] 09:08:00 Test Item Value Reference Range Interpretation Comments SODIUM (BEAKER) (test code = 381) 124 meq/L 135-148 L POTASSIUM-STAT [id number] 08:00:00 Test Item Value Reference Range Interpretation Comments POTASSIUM (BEAKER) (test code = 3.8 meq/L 3.6-5.5 379) CALCIUM, [id number] 08:00:00 Test Item Value Reference Range Interpretation Comments CALCIUM IONIZED (BEAKER) (test 1.15 mmol/L 1.12-1.27 code = 698) PH, BLOOD (BEAKER) (test code = 7.38 1810) BLOOD GAS, [id number] 08:00:00 Test Item Value Reference Range Interpretation [...] code = 1819) 100.0 % SODIUM NA-STAT [id number] 08:00:00 Test Item Value Reference Range Interpretation Comments SODIUM (BEAKER) (test code = 381) 130 meq/L 135-148 L GLUCOSE-STAT [id number] 08:00:00 Test Item Value Reference Range Interpretation Comments GLUCOSE RANDOM (BEAKER) (test code 134 mg/dL 70-110 H = 652) HGB/HCT (H&H) - STAT [id number] 08:00:00 Test Item Value Reference Range Interpretation Comments HEMOGLOBIN (BEAKER) (test code = 10.4 g/dL 12.0-15.0 L 410) HEMATOCRIT (BEAKER) (test code = 31.0 % 36.0-45.0 L 411) RAD, CHEST, 1 VIEW, NON [id number] 07:24:00Reason for exam:->pre opShould this be performed at the bedside?->YesFINAL REPORT Chest one view. Clinical history: pre op Comparison: No priors Discussion: A frontal chest is provided. The cardiac and mediastinal contours are normal. There is no pneumothorax, henrietta pulmonary edema, consolidation or significant pleural effusion. The bony structuresare unremarkable. Signed: Hemant Paige Verified Date/Time: 07/27/2017 07:24:49 Reading Location: [facility] Radiology Reading Room [id number] 04:33:00 Test Item Value Reference Range Interpretation Comments PROTIME (BEAKER) (test code = 14.0 seconds 11.7-14.7 759) INR (BEAKER) (test code = 370) 1.1 <=5.9 PARTIAL THROMBOPLASTIN TIME 40.0 seconds 22.5-36.0 H (BEAKER) (test code = 760) RECOMMENDED COUMADIN/WARFARIN INR THERAPY RANGESSTANDARD DOSE: 2.0 - 3.0 Includes: PROPHYLAXIS for venous thrombosis, systemic embolization; TREATMENT for venous thrombosis and/or pulmonary embolus.HIGH RISK: Target INR is 2.5-3.5 for patients with mechanical heart valves.PROTHROMBIN [id number] 04:32:00 Test Item Value Reference Range Interpretation Comments PROTIME (BEAKER) (test code = 14.0 seconds 11.7-14.7 759) INR (BEAKER) (test code = 370) 1.1 <=5.9 RECOMMENDED COUMADIN/WARFARIN INR THERAPY RANGESSTANDARD DOSE: 2.0 - 3.0 Includes: PROPHYLAXIS for venous thrombosis, systemic embolization; TREATMENT for venous thrombosis [...] 0-0 (BEAKER) (test code = 413) HEMOGLOBIN [id number] 20:12:00 Test Item Value Reference Range Interpretation Comments HEMOGLOBIN A1C (BEAKER) (test code = 6.6 % 4.3-6.1 H 368) PLATELET AGGREGATION: FUNCTION [id number] 18:20:00 Test Item Value Reference Range Interpretation Comments WEAK ADP 43 % 60-91 L RESULT(BEAKER) (test code = 2135) PLATELET FUNCTION 40-49% indicates SCREEN INTERP moderate platelet (BEAKER) (test code = dysfunction 2173) [id number] Yuri Quijano M.D. (BEAKER) (test code = (electonic signature) 6055) PLATELET COUNT AGG 417 K/CU MM 150-450 (BEAKER) (test code = 2656) for patients on clopidogrel in past two weeksLIPID [id number] 13:14:00 Test Item Value Reference Range Interpretation Comments TRIGLYCERIDES (BEAKER) 182 mg/dL Speci men slightly (test code = 540) hemolyzed CHOLESTEROL (BEAKER) 133 mg/dL Specime n slightly (test code = 631) hemolyzed HDL CHOLESTEROL (BEAKER) 31 mg/dL (test code = 976) LDL CHOLESTEROL 66 mg/dL CALCULATED (BEAKER) (test code = 633) Triglyceride Reference Range: Low Risk <150 Borderline 150-199 High Risk 200- 499 Very High Risk >=500Cholesterol Reference Range: Low Risk <200 Borderline 200-239 High Risk >240HDL Cholesterol Reference Range: Low Risk >=60 High Risk <40LDL Cholesterol Reference Range: Optimal <100 Near Optimal 100-129 Borderline 130-159 High 160-189 Very High >=190BASIC METABOLIC [id number] 09:12:00 Test Item Value Reference Range Interpretation [...] APPLICABLE FOR DIALYSIS PATIEN TS. HEPATIC FUNCTION [id number] 09:12:00 Test Item Value Reference Range Interpretation [...] slightly (test code = 347) hemolyzed PROTHROMBIN [id number] 05:58:00 Test Item Value Reference Range Interpretation Comments PROTIME (BEAKER) (test code = 14.2 seconds 11.7-14.7 759) INR (BEAKER) (test code = 370) 1.1 <=5.9 RECOMMENDED COUMADIN/WARFARIN INR THERAPY RANGESSTANDARD DOSE: 2.0 - 3.0 Includes: PROPHYLAXIS for venous thrombosis, systemic embolization; TREATMENT for venous thrombosis and/or pulmonary embolus.HIGH RISK: Target INR is 2.5-3.5 for patients with mechanical heart valves.CBC W/PLT COUNT & AUTO [id number] 05:49:00 Test Item Value Reference Range Interpretation [...]
--- NOTE | 2022-08-23 12:12 | EDPHYS ---
Physician Documentation [facility] Name: Mallory Nash Age: 62 yrs Sex: Female : 1960 Arrival Date: 08/23/2022 Time: 11:48 Bed 2 Private MD: ED Physician Dagoberto Sim HPI: 08/23 12:03 This 62 yrs old Female presents to ER via EMS with complaints of dyspnea, layla copd , hypoxia. 12:03 The patient has shortness of breath at rest. Onset: The symptoms/episode began/occurred layla 3 day(s) ago. Duration: The symptoms are continuous, and are steadily getting worse. The patient's shortness of breath is aggravated by coughing, light activity, prone position, supine position. The patient presents to the emergency department with wheezing, Current therapy: None. Modifying factors: The symptoms are alleviated by nothing, the symptoms are aggravated by exertion, talking. The patient or guardian reports cough, difficulty breathing, flu symptoms, arthralgias, low-grade fever, myalgias. Modifying factors: The symptoms are alleviated by nothing. the symptoms are aggravated by nothing. Associated signs and symptoms: Pertinent positives: non-productive cough. Historical: - Allergies: 11:51 Chlorhexidine Gluconate; jl7 - PMHx: 11:51 Cancer; chronic back pain; COPD; Depression; Hypertension; jl7 - PSHx: 11:51 Appendectomy; Coronary artery bypass graft; jl7 - Immunization history:: Adult Immunizations unknown. - Social history:: Smoking status: Patient reports the use of cigarette tobacco products. - Family history:: pertinent for asthma, heart disease. ROS: 12:03 Constitutional: Negative for fever, chills, and weight loss, Eyes: Negative for injury, layla pain, redness, and discharge, ENT: Negative for injury, pain, and discharge, Neck: Negative for injury, pain, and swelling, Abdomen/GI: Negative for abdominal pain, nausea, vomiting, diarrhea, and constipation, Back: Negative for injury and pain, : Negative for injury, bleeding, discharge, and swelling, MS/Extremity: Negative for injury and deformity, Skin: Negative for injury, rash, and discoloration, Neuro: Negative for headache, weakness, numbness, tingling, and seizure, Psych: Negative for depression, anxiety, suicide ideation, homicidal ideation, and hallucinations, Allergy/Immunology: Negative for hives, rash, and allergies, Endocrine: Negative for neck swelling, polydipsia, polyuria, polyphagia, and marked weight changes, Hematologic/Lymphatic: Negative for swollen nodes, abnormal bleeding, and unusual bruising. 12:03 Cardiovascular: Positive for chest pain, palpitations. 12:03 Respiratory: Positive for cough, shortness of breath, wheezing, expiratory. Exam: 12:03 Constitutional: This is a well developed, well nourished patient who is awake, alert, layla and in no acute distress. Head/Face: Normocephalic, atraumatic. ENT: Nares patent. No nasal discharge, no septal abnormalities noted. Tympanic membranes are normal and external auditory canals are clear. Oropharynx with no redness, swelling, or masses, exudates, or evidence of obstruction, uvula midline. Mucous membranes moist. Neck: Trachea midline, no thyromegaly or masses palpated, and no cervical lymphadenopathy. Supple, full range of motion without nuchal rigidity, or vertebral point tenderness. No Meningismus. Abdomen/GI: Soft, non-tender, with normal bowel sounds. No distension or tympany. No guarding or rebound. No evidence of tenderness throughout. Back: No spinal tenderness. No costovertebral tenderness. Full range of motion. Skin: Warm, dry with normal turgor. Normal color with no rashes, no lesions, and no evidence of cellulitis. MS/ Extremity: Pulses equal, no cyanosis. Neurovascular intact. Full, normal range of motion. Neuro: Awake and alert, GCS 15, oriented to person, place, time, and situation. Cranial nerves II-XII grossly intact. Motor strength 5/5 in all extremities. Sensory grossly intact. Cerebellar exam normal. Normal gait. Psych: Awake, alert, with orientation to person, place and time. Behavior, mood, and affect are within normal limits. 12:03 Constitutional: The patient appears in obvious distress, moderately distressed. 12:03 Eyes: Exam is negative for acute changes, Periorbital structures: appear normal, Pupils: no acute changes, Conjunctiva: normal. 12:03 Cardiovascular: Rate: tachycardic, actual rate is 124 bpm, Rhythm: regular, Pulses: Pulses are 4+ in bilateral radial, brachial, femoral, popliteal, posterior tibial and and dorsalis pedis arteries.. Heart sounds: normal, Edema: is not appreciated, JVD: is not appreciated. 12:03 ECG was reviewed by the Attending Physician. 14:34 ECG was reviewed by the Attending Physician. [facility] Vital Signs: 11:50 BP 135 / 93; Pulse 124; Resp 30; Temp 97.9; Pulse Ox 100% on 50% BiPAP; jl7 12:00 BP 144 / 90; Pulse 133; Resp 29; Pulse Ox 100% ; bp 13:00 BP 122 / 62; Pulse 120; Resp 35; Pulse Ox 100% ; bp 14:00 BP 142 / 78; Pulse 116; Resp 29; Pulse Ox 99% ; bp 19:00 BP 107 / 64; Pulse 96; Resp 26; Temp 98.2; Pulse Ox 97% on 3 lpm NC; Pain 0/10; pf1 20:00 BP 113 / 70; Pulse 89; Resp 28; Pulse Ox 100% on 3 lpm NC; Pain 0/10; pf1 20:45 BP 108 / 69; Pulse 93; Resp 26; Temp 98.2; Pulse Ox 98% on 3 lpm NC; Pain 0/10; pf1 MDM: 11:58 Patient medically screened. [facility] 12:09 Differential diagnosis: asthma, Bronchitis CHF exacerbation, Chronic Obstructive layla Pulmonary Disease acute asthma, CHF, URI, Myocardial Infarction. Antibiotic administration: Levaquin and Cleocin given. The patient's Wells Deep Vein Thrombosis Score was calculated as follows: Heart Rate >100 BPM (1.5 Pts) Total Score: 0-2 Pts- Low Risk. The patient's pulmonary embolism risk score was calculated as follows: the patients heart rate is greater than 100 beats per minute (1.5 Pts) Total Score: 0-2 points. This patient was found to be at low risk for a pulmonary embolism by using the Well's assessment criteria. Immunization status: Influenza vaccine: within last 5 years. Data reviewed: vital signs, nurses notes, EMS record, lab test result(s), EKG, radiologic studies, plain films. Data interpreted: commercial pilot: rate is 124 beats/min, rhythm is atrial fibrillation, Pulse oximetry: on room air is 75 %. Test interpretation: by ED physician or midlevel provider: ECG, plain radiologic studies. 08/23 12:01 Order name: Basic Metabolic Panel; Complete Time: 16:55 [facility] 08/23 12:01 Order name: CBC with Diff; Complete Time: 16:55 [facility] 08/23 12:01 Order name: LFT's; Complete Time: 16:55 [facility] 08/23 12:01 Order name: Magnesium; Complete Time: 16:55 [facility] 08/23 12:01 Order name: NT PRO-BNP; Complete Time: 16:55 [facility] 08/23 12:01 Order name: PT-INR; Complete Time: 16:55 [facility] 08/23 12:01 Order name: Troponin HS; Complete Time: 16:55 [facility] 08/23 12:01 Order name: Blood Culture Adult (2) [facility] 08/23 12:01 Order name: Lactate w/ 2H reflex if indic.; Complete Time: 16:55 [facility] 08/23 12:01 Order name: COVID-19/FLU A+B; Complete Time: 16:55 [facility] 08/23 12:01 Order name: ABG; Complete Time: 13:23 [facility] 08/23 13:55 Order name: Basic Metabolic Panel [facility] 08/23 13:55 Order name: Basic Metabolic Panel [facility] 08/23 13:55 Order name: Lipid Profile [facility] 08/23 12:01 Order name: XRAY Chest (1 view); Complete Time: 16:55 [facility] 08/23 12:01 Order name: BIPAP [facility] 08/23 13:55 Order name: Lipid Profile [facility] 08/23 14:00 Order name: Chest Angio; Complete Time: 16:55 [facility] 08/23 16:57 Order name: Echo w/ Doppler [facility] 08/23 17:40 Order name: Lactate Sepsis 2 HR Follow-up [facility] 08/23 12:01 Order name: EKG; Complete Time: 12:02 [facility] 08/23 12:01 Order name: Cardiac monitoring; Complete Time: 14:33 [facility] 08/23 12:01 Order name: EKG - Nurse/Tech; Complete Time: 14:33 [facility] 08/23 12:01 Order name: IV Saline Lock; Complete Time: 14:33 [facility] 08/23 12:01 Order name: Labs collected and sent; Complete Time: 14:33 [facility] 08/23 12:01 Order name: O2 Per Protocol; Complete Time: 14:33 [facility] 08/23 12:01 Order name: O2 Sat Monitoring; Complete Time: 14:33 [facility] 08/23 13:55 Order name: Respiratory Therapy Consult [facility] 08/23 13:56 Order name: Respiratory Therapy Consult [facility] 08/23 14:11 Order name: Regular EDKY EC:03 Rate is 124 beats/min. Rhythm is regular. QRS Orange is Normal. RI interval is normal. layla QRS interval is normal. QT interval is normal. No Q waves. T waves are Normal. No ST changes noted. Clinical impression: Sinus tachycardia and No evidence of ischemia. Reviewed by me. 14:34 Rate is 115 beats/min. Rhythm is regular. QRS Orange is Normal. RI interval is normal. layla QRS interval is normal. QT interval is normal. No Q waves. T waves are Normal. No ST changes noted. Clinical impression: Sinus tachycardia and No evidence of ischemia. Interpreted by me. Reviewed by me. Administered Medications: 12:20 Not Given (Duplicate Order): Magnesium Sulfate 2 grams IVPB once over 1 hrs ld1 13:05 Drug: NS 0.9% 500 ml Route: IV; Rate: bolus; Site: right antecubital; bp 13:05 Drug: Decadron - Dexamethasone 10 mg Route: IVP; Site: right antecubital; bp 13:05 Drug: Pepcid (famotidine) 20 mg Route: IVP; Site: right antecubital; bp 13:05 Drug: NS 0.9% 1000 ml Route: IV; Rate: 125 ml/hr; Site: right antecubital; bp 13:05 Drug: Ativan (LORazepam) 1 mg Route: IVP; Site: right antecubital; bp 14:36 Follow up: Response: No adverse reaction bp 17:15 Drug: Digoxin 0.5 mg Route: IVP; Site: left antecubital; bp 19:00 Follow up: Response: Marked relief of symptoms; Cardiac rhythm changed pf1 17:23 Not Given (PT ON PO ELIQUISs): Lovenox (enoxaparin) 1 mg/kg Sub-Q once bp 17:30 Drug: Lopressor (metoprolol TARTRATE) 50 mg Route: PO; bp 19:00 Follow up: Response: Marked relief of symptoms; Cardiac rhythm changed pf1 Disposition Summary: 08/23/22 12:12 Hospitalization Ordered Hospitalization Status: Inpatient Admission layla Provider: Nas Aiken cha Condition: Serious layla Problem: new layla Symptoms: have improved layla Bed/Room Type: Standard layla Location: Telemetry/MedSurg (Inpatient)(08/23/22 20:47) kl Room Assignment: 420(08/23/22 20:47) Diagnosis - COPD/ Chronic obstructive pulmonary disease with acute lower respiratory infection layla - Acute and chronic respiratory failure with hypoxia layla - Hypoxemia layla - Other pneumonia, unspecified organism - BILATERAL layla Forms: - Medication Reconciliation Form layla - SBAR form layla Signatures: Dispatcher [employer] EDMS Naima Harmon RN Dagoberto Jaime MD MD cha Leal, Jahala RN RN jl7 Norbert Pickett RN RN Norma Sylvester mw2 Chaparrita Zimmerman RN ld1 Winnie araujo RN pf1 Corrections: (The following items were deleted from the chart) 14:11 13:55 Heart Healthy ordered. EDKY EDKY 16:37 12:12 Intensive Care Unit layla jl7 16:37 12:12 layla jl7 19:34 16:37 ERHOLD- jl7 mw2 20:47 16:37 [facility] ER HOLD jl7 kl 20:47 19:34 mw2 kl
--- NOTE | 2022-08-23 12:12 | ER ---
Nurse's Notes [facility] Name: Mallory Nash Age: 62 yrs Sex: Female : 1960 Arrival Date: 08/23/2022 Time: 11:48 Bed 2 Private MD: Diagnosis: COPD/ Chronic obstructive pulmonary disease with acute lower respiratory infection;Acute and chronic respiratory failure with hypoxia;Hypoxemia;Other pneumonia, unspecified organism-BILATERAL Presentation: 08/23 11:50 Chief complaint: EMS states: Toned out for difficulty breathing, 76% on 2 lpm NC, put jl7 on CPap, not tolerating on arrival to ED. Ebola Screen: No symptoms or risks identified at this time. Initial Sepsis Screen: Does the patient meet any 2 criteria? No. Patient's initial sepsis screen is negative. Does the patient have a suspected source of infection? No. Patient's initial sepsis screen is negative. Risk Assessment: Do you want to hurt yourself or someone else? Patient reports no desire to harm self or others. Onset of symptoms is unknown. 11:50 Method Of Arrival: EMS: [facility] jl7 11:50 Acuity: MAICO 2 jl7 21:06 Coronavirus screen: Client denies travel out of the [place] in the last 14 days. At this pf1 time, the client does not indicate any symptoms associated with coronavirus-19. Triage Assessment: 11:51 General: Appears distressed, uncomfortable, Behavior is cooperative, anxious, restless. jl7 Pain: Denies pain. Neuro: Level of Consciousness is awake, alert, obeys commands, Oriented to person, place, time, situation. Cardiovascular: Patient's skin is warm and dry. Rhythm is sinus tachycardia. Respiratory: Airway is patent Respiratory effort is even, labored, with retractions, Respiratory pattern is symmetrical, tachypnea. Derm: Skin is pink, warm \T\ dry. Historical: - Allergies: 11:51 Chlorhexidine Gluconate; jl7 - PMHx: 11:51 Cancer; chronic back pain; COPD; Depression; Hypertension; jl7 - PSHx: 11:51 Appendectomy; Coronary artery bypass graft; jl7 - Immunization history:: Adult Immunizations unknown. - Social history:: Smoking status: Patient reports the use of cigarette tobacco products. - Family history:: pertinent for asthma, heart disease. Screenin:[birth year] [facility] ED Fall Risk Assessment (Adult) History of falling in the last 3 months, bp including since admission No falls in past 3 months (0 pts). Abuse screen: Denies threats or abuse. Denies injuries from another. Nutritional screening: No deficits noted. Tuberculosis screening: No symptoms or risk factors identified. Assessment: 11:45 Reassessment: RT Kareen at bedside and placed pt on BiPap. jl7 11:56 Reassessment: 125mg Solu-medrol IVP; 4G Magnesium IV; 2 albuterol and 1 Atrovent given jl7 in route by EMS. 12:42 Reassessment: Pt cleaned of incontinence, bedding changed, brief placed on pt. Dr. charan Aiken at bedside assessing pt. 13:00 Reassessment: ADMIT INITIATED. bp 14:00 Reassessment: ADMIT IN PROCESS Patient states symptoms have improved. bp 19:00 General: Appears in no apparent distress. comfortable, well groomed, well developed, pf1 Behavior is cooperative, appropriate for age, restless. Pain: Denies pain. 19:00 Neuro: Level of Consciousness is awake, alert, obeys commands, Oriented to person, pf1 place. Cardiovascular: No deficits noted. Respiratory: Airway is patent Respiratory effort is even, unlabored, Respiratory pattern is tachypnea Breath sounds with rhonchi bilaterally. GI: No deficits noted. No signs and/or symptoms were reported involving the gastrointestinal system. Abdomen is flat, non-distended, Bowel sounds present X 4 quads. : No deficits noted. No signs and/or symptoms were reported regarding the genitourinary system. EENT: No deficits noted. No signs and/or symptoms were reported regarding the EENT system. Derm: No deficits noted. No signs and/or symptoms reported regarding the dermatologic system. 20:00 Reassessment: Patient appears in no apparent distress at this time. No changes from pf1 previously documented assessment. Patient and/or family updated on plan of care and expected duration. Pain level reassessed. Patient states feeling better. Patient states symptoms have improved. 21:00 Reassessment: Patient appears in no apparent distress at this time. No changes from pf1 previously documented assessment. Patient and/or family updated on plan of care and expected duration. Pain level reassessed. Patient states feeling better. Patient states symptoms have improved. Vital Signs: 11:50 BP 135 / 93; Pulse 124; Resp 30; Temp 97.9; Pulse Ox 100% on 50% BiPAP; jl7 12:00 BP 144 / 90; Pulse 133; Resp 29; Pulse Ox 100% ; bp 13:00 BP 122 / 62; Pulse 120; Resp 35; Pulse Ox 100% ; bp 14:00 BP 142 / 78; Pulse 116; Resp 29; Pulse Ox 99% ; bp 19:00 BP 107 / 64; Pulse 96; Resp 26; Temp 98.2; Pulse Ox 97% on 3 lpm NC; Pain 0/10; pf1 20:00 BP 113 / 70; Pulse 89; Resp 28; Pulse Ox 100% on 3 lpm NC; Pain 0/10; pf1 20:45 BP 108 / 69; Pulse 93; Resp 26; Temp 98.2; Pulse Ox 98% on 3 lpm NC; Pain 0/10; pf1 ED Course: 11:45 Client placed on continuous cardiac and pulse oximetry monitoring. NIBP monitoring jl7 applied. 11:45 Maintain EMS IV. Dressing intact. Good blood return noted. Site clean \T\ dry. Gauge \T\ bp site: BILATERAL 18 GA AC. 11:48 Patient arrived in ED. em1 11:51 Triage completed. jl7 11:51 Arm band placed on right wrist. jl7 11:58 Dagoberto Sim MD is Attending Physician. layla 11:59 Norbert Pickett, NAIN is Primary Nurse. bp 11:59 Patient has correct armband on for positive identification. Bed in low position. Call bp light in reach. Side rails up X2. 12:10 Nas Aiken MD is Hospitalizing Provider. layla 13:22 XRAY Chest (1 view) In Process Unspecified. EDMS 17:01 Echo w/ Doppler Sent. jl7 21:03 No provider procedures requiring assistance completed. Patient admitted, IV remains in pf1 place. Administered Medications: 12:20 Not Given (Duplicate Order): Magnesium Sulfate 2 grams IVPB once over 1 hrs ld1 13:05 Drug: NS 0.9% 500 ml Route: IV; Rate: bolus; Site: right antecubital; bp 13:05 Drug: Decadron - Dexamethasone 10 mg Route: IVP; Site: right antecubital; bp 13:05 Drug: Pepcid (famotidine) 20 mg Route: IVP; Site: right antecubital; bp 13:05 Drug: NS 0.9% 1000 ml Route: IV; Rate: 125 ml/hr; Site: right antecubital; bp 13:05 Drug: Ativan (LORazepam) 1 mg Route: IVP; Site: right antecubital; bp 14:36 Follow up: Response: No adverse reaction bp 17:15 Drug: Digoxin 0.5 mg Route: IVP; Site: left antecubital; bp 19:00 Follow up: Response: Marked relief of symptoms; Cardiac rhythm changed pf1 17:23 Not Given (PT ON PO ELIQUISs): Lovenox (enoxaparin) 1 mg/kg Sub-Q once bp 17:30 Drug: Lopressor (metoprolol TARTRATE) 50 mg Route: PO; bp 19:00 Follow up: Response: Marked relief of symptoms; Cardiac rhythm changed pf1 Medication: 21:06 VIS not applicable for this client. pf1 Outcome: 12:12 Decision to Hospitalize by Provider. [facility] 21:06 Condition: stable pf1 21:06 Instructed on the need for admit, Demonstrated understanding of instructions, to family at BS 21:25 Admitted to Med/surg accompanied by tech, via stretcher, room 420, with oxygen, on pf1 monitor, with chart, Report called to NAIN Chavira 21:35 Patient left the ED. pf1 Signatures: Dispatcher [employer] EDMS Dagoberto Sim MD MD cha Martinez, Eric em1 Edward Austin RN RN jl7 Peltier, Brian, RN RN bp finley, Pamala, RN RN pf1 Chaparrita Zimmerman RN ld1
[2022-08-23] MEDS ORDERED: dexAMETHasone 10 MG/ML VIAL ONE (12:27)
[2022-08-23] MEDS ORDERED: LORazepam 2 MG/ML VIAL ONE (12:27)
[2022-08-23] MEDS ORDERED: NA CHLORIDE 0.9% 1,000 ML ONE (12:28)
[2022-08-23] MEDS ORDERED: FAMOTIDINE 20 MG/2 ML VIAL IV ONE (12:28)
[2022-08-23 12:38] LABS: Arterial Blood Carboxyhemoglob 1.3 % (0-1.5); Blood Gas Oxyhemoglobin 96.7 % (94-97); Blood O2 Saturation 99.1 % (92-98.5)
[2022-08-23 13:20] LABS: Absolute Lymphocytes (CBC) 0.6 K/uL (0.7-4.9); Hematocrit 33.3 % (36.0-45.0); Lymphocytes % 4.1 % (15.3-44.8); MCV 97.5 fL (80-100); MPV 8.1 fL (7.6-11.3); RBC Red Blood Cell Count 3.42 M/uL (3.86-4.86)
[2022-08-23 13:23] LABS: Protime INR 1.16
--- NOTE | 2022-08-23 13:36 | RAD REPORT ---
EXAM DESCRIPTION: RAD - Chest Single View - 08/23/2022 1:20 pm CLINICAL HISTORY: COUGH COMPARISON: Chest Single View dated 03/25/2022; Chest Single View dated 11/22/2021; Chest Single View dated 04/28/2021; Chest Single View dated 07/29/2019 FINDINGS: Lines: None. Lungs: Moderate widespread bilateral interstitial and airspace disease. Pleural: No significant pleural effusions or pneumothorax. Cardiac: The heart size is within normal limits. Mediastinum: Within normal limits. Bones: No acute fractures. Other: Sternotomy. IMPRESSION: Moderate widespread pulmonary opacities likely representing pneumonia. Edema less likely .
[2022-08-23] MEDS ORDERED: ALBUTEROL 2.5 MG/3 ML NEB SOL NEB PRN (13:49)
[2022-08-23 13:50] LABS: Albumin 2.7 g/dL (3.4-5.0); Bilirubin Direct 0.2 mg/dL (0-0.2); Bilirubin Total 0.6 mg/dL (0.2-1.0); Protein, Total 7.7 g/dL (6.4-8.2)
[2022-08-23 13:54] LABS: Magnesium 3.2 mg/dL (1.6-2.4); Potassium 3.6 mmol/L (3.5-5.1)
[2022-08-23 13:55] LABS: Troponin High Sensitivity 152.2 pg/mL (<58.9)
[2022-08-23] MEDS: APIXABAN 5 MG TABLET PO SCH (13:57)
[2022-08-23] MEDS ORDERED: Levofloxacin 750mg IV 750 MG/150 ML BAG IV SCH (14:00)
[2022-08-23] MEDS: D5 0.45 NS 1,000 ML IV SCH (14:00)
[2022-08-23 14:01] LABS: SARS-COV-2 RT PCR NEGATIVE (NEGATIVE)
--- NOTE | 2022-08-23 14:18 | P.HP ---
Certification for Inpatient With expected LOS: >2 Midnights Practitioner: I am a practitioner with admitting privileges, knowledge of patient current condition, hospital course, and medical plan of care. Services: Services provided to patient in accordance with Admission requirements found in Title 42 Section 412.3 of the Code of Federal Regulations Patient History Date of Service: 08/23/22 Reason for admission: Resp distress History of Present Illness: Pt is 62 yrs of age HX of lung cancer Tx at [facility] with chemo,rad and now on immunotherapy worse over the past 1 wk with worsening SOB, Active smoker Allergies No Known Drug Allergies Allergy (Verified 03/22/22 12:01) none Home Medications: Aspirin [Adult Aspirin] 81 mg PO DAILY 10/06/18 Gabapentin [Neurontin] 800 mg PO QID 10/06/18 Metoprolol Tartrate [Lopressor*] 25 mg PO BID #60 tab 10/09/18 Albuterol Neb [Proventil 0.083% Neb Soln] 2.5 mg IH PRN PRN 03/22/22 Duloxetine [Cymbalta Dalayed Release Pellets] 60 mg PO DAILY 03/22/22 Fluticasone/Umeclidin/Vilanter [Trelegy Ellipta 100-62.5-25] 1 each IH DAILY 03/22/22 Hydrocodone Bit/Acetaminophen [Hydrocodon-Acetaminophn 10-325] 1 tab PO PRN PRN 03/22/22 OLANZapine [Olanzapine] 5 mg PO DAILY 03/22/22 Varenicline Tartrate [Chantix] 150 mg PO DAILY 03/22/22 clonazePAM [Clonazepam] 2 mg PO PRN PRN 03/22/22 ondansetron HCL [Ondansetron HCl] 8 mg PO DAILY 03/22/22 - Past Medical/Surgical History Diabetic: No -: Depression -: HTN -: Chronic back pain -: Neuropathy -: CAD -: CABG 2017 3 vessel -: Tobacco -: COPD -: Lung cancer Tx at [facility] -: appendectomy -: CABG x 3 Psychosocial/ Personal History: Single - Family History Mother -: Heart disease, Diabetes - Social History Smoking Status: Current every day smoker Alcohol use: No CD- Drugs: No Caffeine use: Yes Review of Systems 10-point ROS is otherwise unremarkable General: Weakness Respiratory: Cough, Shortness of Breath Physical Examination - Physical Exam General: Alert, Moderate distress Respiratory: Clear to auscultation bilaterally, Diminished Cardiovascular: Regular rate/rhythm, Normal S1 S2 Gastrointestinal: Normal bowel sounds, Soft and benign Musculoskeletal: No clubbing, No swelling Integumentary: No rashes, No breakdown Neurological: Normal speech, Normal strength at 5/5 x4 extr, Cranial nerves 3-12 intact - Studies Laboratory Data (last 24 hrs) 08/23/22 13:05: PT 12.8 H, INR 1.16 08/23/22 13:05: WBC 14.20 H, Hgb 11.4 L, Hct 33.3 L, Plt Count 347 08/23/22 13:05: Sodium 130 L, Potassium 3.6, BUN 23 H, Creatinine 0.87, Glucose 187 H, Magnesium 3.2 H, Total Bilirubin 0.6, AST 20, ALT 14, Alkaline Phosphatase 113 Assessment and Plan - Problems (Diagnosis) (1) COPD exacerbation Current Visit: Yes Status: Acute Plan: Age 62 worse past 1 wk with SOB. Active smoker. Tx at [facility] with immunotherapy for lung cancer. CXRY possible one[place]. Labs reviewed.. WBC and tropnin elevated. Admit nebs.steroids. AB, O2. Pt wants to be DNR witnessed by nurse. Sons present. Alert and Oriented x3, RO PE. - Advance Directives Does patient have a Living Will: No Does patient have a Durable POA for Healthcare: No
--- NOTE | 2022-08-23 16:07 | RAD REPORT ---
EXAM DESCRIPTION: CT - Chest Angio - 08/23/2022 3:41 pm CLINICAL HISTORY: RO PE COMPARISON: Thorax W/ Con dated 11/23/2021; Chest Abd Pelvis Wo Con dated 10/06/2018 TECHNIQUE: Dynamically enhanced axial 3 mm thick images of the chest were obtained during administra tion of <100> mL Isovue 370 IV contrast. Coronal and oblique reconstruction images were generated and reviewed. Exam utilizes a protocol for optimal evaluation of pulmonary arterial tree. Maximum intensity projections 3D imaging was utilized All CT scans are performed using dose optimization technique as appropriate and may include automated exposure control or mA/KV adjustment according to patient size. FINDINGS: Chest Wall: Partially imaged left thyroid nodule. Lungs: Widespread bilateral nodularity has increased from prior. . Bronchial wall thickening is prese nt. The previously identified left upper lobe mass has decreased in size but is still present. It elyse sures approximately 3.2 x 1.7 cm, previously 3.1 x 3.7 cm . There is still mass effect and occlusion on the left upper lobe bronchus. Pleura: No significant effusions or pneumothorax. Mediastinum/duane: Subcarinal lymphadenopathy which is similar. Circumferentially thickened distal eso phagus. Pulmonary arteries/Aorta: No filling defect identified. No aortic aneurysm. Heart: No significant pericardial effusion. Normal heart size. Upper abdomen: No acute abnormality. Bones: No acute abnormality. Sternotomy IMPRESSION: Negative for pulmonary embolism. Worsening nodularity and micronodularity bilaterally, r ight greater than left. This could reflect an inflammatory or infectious etiology such as a viral pne umonia or other atypical sources. Endobronchial spread of tumor less likely. Note that the left upper lobe mass has decreased in size compared with 11/23/2021. Suspicious subcarinal lymph node is simila r, though.
[2022-08-23] MEDS ORDERED: D5 0.45 NS 1,000 ML IV ONE (16:30)
[2022-08-23] MEDS ORDERED: Levofloxacin 750mg IV 750 MG/150 ML BAG IV ONE (16:30)
[2022-08-23] MEDS ORDERED: APIXABAN 5 MG TABLET ONE (16:30)
[2022-08-23] MEDS ORDERED: METOPROLOL TARTRATE 5 MG/5 ML INJ IV ONE ×2 (16:55→17:06)
[2022-08-23] MEDS: METHYLPREDNISOLONE 40 MG INJ IV SCH (17:00)
[2022-08-23] MEDS ORDERED: METOPROLOL TAR 50 MG TAB ONE (17:05)
[2022-08-23] MEDS ORDERED: DIGOXIN 0.25 MG/ML AMP ONE (17:06)
[2022-08-23] MEDS ORDERED: METOPROLOL TARTRATE 5 MG/5 ML INJ IV STA (17:08)
[2022-08-23] MEDS ORDERED: METOPROLOL TARTRATE 5 MG/5 ML INJ IV PRN (17:38)
[2022-08-23] MEDS ORDERED: AMIODARONE HCL 900 MG in Dextrose 5%-Water 482 ML IV SCH (18:00)
[2022-08-23] MEDS ORDERED: METHYLPREDNISOLONE 40 MG INJ IV SCH (18:00)
[2022-08-23] MEDS ORDERED: ALBUTEROL 2.5 MG/3 ML NEB SOL ONE (19:47)
[2022-08-23] MEDS ORDERED: IPRATROPIUM BROM 0.5MG/2.5ML ONE (19:47)
[2022-08-23] MEDS: IPRATROPIUM BROM 0.5MG/2.5ML NEB SCH (20:15)
[2022-08-23] MEDS: ALBUTEROL 2.5 MG/3 ML NEB SOL NEB SCH (20:15)
[2022-08-24] MEDS: APIXABAN 5 MG TABLET PO SCH ×3 (00:08→21:00)
[2022-08-24] MEDS: GABAPENTIN 400 MG CAP PO PRN ×2 (00:09→09:10)
[2022-08-24 01:21] VITALS: BMI 18.8
[2022-08-24] MEDS: IPRATROPIUM BROM 0.5MG/2.5ML NEB SCH ×4 (01:35→18:35)
[2022-08-24] MEDS: ALBUTEROL 2.5 MG/3 ML NEB SOL NEB SCH ×3 (01:35→14:30)
[2022-08-24] MEDS: D5 0.45 NS 1,000 ML IV SCH ×2 (03:04→23:02)
[2022-08-24] MEDS: METHYLPREDNISOLONE 40 MG INJ IV SCH ×2 (03:05→09:11)
[2022-08-24 04:17] LABS: Potassium 4.6 mmol/L (3.5-5.1)
[2022-08-24] MEDS ORDERED: ENOXAPARIN 40 MG/0.4 ML SQ SCH (09:00)
[2022-08-24] MEDS ORDERED: ASPIRIN 81 MG CHEWABLE TABLET PO SCH (09:00)
[2022-08-24] MEDS: FUROSEMIDE 20 MG/ 2ML VIAL IV SCH ×2 (09:10→17:00)
--- NOTE | 2022-08-24 09:25 | CON ---
Date of Consultation: 08/24/2022 Reason For Consultation: Atrial fibrillation. History Of Present Illness: This is a 62-year-old female with history of lung cancer, status post ch emotherapy. She was admitted with shortness of breath, diagnosed with COPD exacerbation. She is act ugme smoker. I saw her by bedside. She is wheezing and short of breath. She apparently developed an episode of atrial fibrillation with rapid ventricular response. She was placed on amiodarone. She continues to be in AFib this morning. There is no chest pain. Past Medical History: Hypertension, coronary artery disease, depression, lung cancer. Past Surgical History: CABG. Medications: Refer to reconciliation sheet for detailed list. Allergies: NO KNOWN DRUG ALLERGIES. Family History: No premature coronary artery disease or cancer. Social History: She is an active smoker. Does not drink or use any drugs. Review of Systems: All systems reviewed and they were negative except what mentioned in HPI. Physical Examination: Vital Signs: Reviewed. Temperature is 98.4, pulse 80, breathing 19, blood pressure is 120/55, satur ating 98% with 4 L nasal cannula. General: This is a middle-aged female. No distress. Thin body habitus. Head and Neck: Pupils are equal, reactive to light. Intact eye movements. No JVD. No cervical lym phadenopathy. Neck is supple. Thyroid is not enlarged. Lungs: Diffuse wheezing bilaterally with decreased air entry. Slightly short of breath. Heart: Irregularly irregular. No extra sounds. Abdomen: Soft, nontender. Bowel sounds positive. No organomegaly. No masses or hernia. No rigidi ty or rebound. Extremities: No clubbing or cyanosis. Intact pulses. Skin: No rash. Neurologic: Alert, awake, oriented x3. No acute focal deficits appreciated. Investigations: Troponin 152. NT-proBNP is 2809. BUN is 29, creatinine is 0.84. Hemoglobin is 11. 4. Assessment And Recommendations: 1.Atrial fibrillation with rapid ventricular response. Agree with amiodarone load with m g/minute for 16 hours and also if blood pressure allows introduce a low-dose beta mehdi, specifical ly metoprolol 12.5 mg twice a day. 2.Elevated troponin, known history of coronary artery disease. Obtain an echocardiogram. Please tr end troponin further and place the patient on aspirin. 3.Congestive heart failure. She has signs of mild fluid overload. I will give her Lasix 40 mg IV q .24 hours, monitor BUN, creatinine, and electrolytes. Thank you for the consult. SANTANA Voice ID: [id number] Report ID: [id number]
--- NOTE | 2022-08-24 13:40 | EKG ---
Test Date: 2022-08-23 Test Time: 16:48:59 Panel Instrument Repairer: ALFONZO MEASUREMENT RESULTS: Intervals: Rate: 160 [place]: QRSD: 82 QT: 290 QTc: 473 [place]: P: OK: QRS: 104 T: -50 INTERPRETIVE STATEMENTS: Atrial fibrillation with rapid ventricular response Anterolateral infarct, age undetermined ST & T wave abnormality, consider inferior ischemia Abnormal ECG Compared to ECG 03/25/2022 12:38:23 Myocardial infarct finding now present Possible ischemia now present Sinus tachycardia no longer present ST (T wave) deviation still present Electronically Signed On 08-24-22 13:38:08 MED AIDE by Luis M Martin
--- NOTE | 2022-08-24 13:40 | EKG ---
Test Date: 2022-08-23 Test Time: 14:28:51 Air Intelligence Officer: BP MEASUREMENT RESULTS: Intervals: Rate: 115 WA: 144 QRSD: 72 QT: 322 QTc: 445 [place]: P: 76 WA: 144 QRS: 98 T: 75 INTERPRETIVE STATEMENTS: Sinus tachycardia with premature supraventricular complexes Possible Left atrial enlargement Anterolateral infarct, age undetermined Abnormal ECG Compared to ECG 03/25/2022 12:38:23 Atrial premature complex(es) now present Myocardial infarct finding now present ST (T wave) deviation no longer present Electronically Signed On 08-24-22 13:38:19 BUILDING ANALYST/SUPERVISOR by Luis M Martin
[2022-08-24] MEDS ORDERED: CLONAZEPAM 2 MG PO PRN (14:56)
[2022-08-24] MEDS: METOPROLOL TAR 25 MG TAB PO SCH ×2 (14:59→21:00)
[2022-08-24] MEDS ORDERED: HOME MED 1 EA UNK (Ondansetron Hcl [Ondansetron Hcl] 8 MG Tablet) PO SCH (15:00)
[2022-08-24] MEDS ORDERED: ONDANSETRON 4 MG (ODT) TAB PO PRN (15:24)
[2022-08-24] MEDS ORDERED: clonazePAM 1 MG TAB PO PRN (15:27)
[2022-08-24] MEDS: HYDROCODONE/APAP 10/325 TAB PO PRN (15:46)
[2022-08-24] MEDS: GABAPENTIN 400 MG CAP PO SCH ×2 (17:00→21:00)
--- NOTE | 2022-08-24 17:15 | P.PN ---
Subjective Date of Service: 08/24/22 Chief Complaint: Resp distress No changes from yesterday. Patient cough and intermittently. She appears weak. No recorded fever. Physical Examination - Vital Signs Temperature: 97 F Blood Pressure: 131/63 Pulse: 113 Respirations: 20 Pulse Ox (%): 97 - Physical Exam General: In no apparent distress, Oriented x2 HEENT: Mucous membr. moist/pink Neck: JVD not distended Respiratory: Normal air movement, Expiratory wheezes Cardiovascular: Normal S1 S2, Irregular heart rate/rhythm Gastrointestinal: Normal bowel sounds, Soft and benign, Non-distended Musculoskeletal: No tenderness Integumentary: No cyanosis Neurological: Other (No focal motor deficit) Assessment And Plan - Current Problems (Diagnosis) (1) COPD exacerbation Current Visit: Yes Status: Acute (2) Acute on chronic diastolic heart failure Current Visit: Yes Status: Acute (3) Elevated troponin Current Visit: Yes Status: Acute - Plan No changes respiratory condition compared to yesterday. Cardiology input appreciated. Elevated troponin deemed secondary to demand ischemia. Patient getting IV Lasix for diuresis. Her oral intake has been poor and she is on maintenance IV fluid to avoid dehydration. Continue bronchodilators and oral prednisone for COPD exacerbation. Encourage oral intake. Continue amiodarone, Eliquis and metoprolol for A. fib. Echocardiogram is pending. Continue other home medications.
[2022-08-24] MEDS: ALBUTEROL 2.5 MG/3 ML NEB SOL NEB PRN (18:35)
[2022-08-24 19:37] LABS: Arterial Blood Carboxyhemoglob 0.6 % (0-1.5); Blood Gas Oxyhemoglobin 96.8 % (94-97); Blood O2 Saturation 98.6 % (92-98.5)
[2022-08-24] MEDS ORDERED: NALOXONE 0.4 MG/ML VIAL IV ONE ×2 (20:57→21:20)
[2022-08-24] MEDS: predniSONE 20 MG TAB PO SCH (21:00)
[2022-08-24] MEDS ORDERED: NALOXONE HCL 2 MG/2 ML VIAL ONE (21:06)
--- NOTE | 2022-08-24 21:18 | P.PN ---
Date of Service: 08/24/22 Received a call that patient was becoming less responsive on BiPAP. Per chart review and discussion with RN, patient received 2 mg Klonopin, 10 mg [place], and 800 mg gabapentin earlier in the evening. She is saturating appropriately on BiPAP but ABG showed worsening acidosis. She is minimally responsive to painful stimuli. Pupils equal and reactive to light bilaterally. Narcan administered. RT adjusted bipap settings and I sat patient upright. She became more responsive to painful stimuli. Additional ABG with improvement in acidosis. Repeat labs pending. Patient apparently verbalized yesterday that she would not want to be intubated. However, patient's sons believe that she was confused and not in an appropriate state of mind at the time. They would like to revoke the DNI/DNR as patient cannot respond to questions at this time and has no formal DNR in place. They wish for her to be intubated if necessary.
[2022-08-24] MEDS ORDERED: NALOXONE HCL 2 MG/2 ML VIAL IV ONE ×2 (21:39→22:28)
[2022-08-24 21:42] LABS: Arterial Blood Carboxyhemoglob 0.6 % (0-1.5); Blood Gas Oxyhemoglobin 95.5 % (94-97); Blood O2 Saturation 97.2 % (92-98.5)
[2022-08-24 23:28] LABS: Absolute Lymphocytes (CBC) 0.2 K/uL (0.7-4.9); Hematocrit 29.7 % (36.0-45.0); Lymphocytes % 1.9 % (15.3-44.8); MCV 99.2 fL (80-100); MPV 8.2 fL (7.6-11.3); RBC Red Blood Cell Count 2.99 M/uL (3.86-4.86)
[2022-08-24] MEDS ORDERED: D50W 25 GM/50 ML SYRINGE IV PRN (23:48)
[2022-08-24] MEDS ORDERED: GLUCAGON 1 MG/VIAL IM PRN (23:48)
[2022-08-24 23:50] LABS: Blood Gas Oxyhemoglobin 92.3 % (94-97); Blood O2 Saturation 94.2 % (92-98.5)
[2022-08-24] MEDS ORDERED: D10W 125 ML IV PRN (23:50)
[2022-08-24 23:51] LABS: Arterial Blood Carboxyhemoglob 0.9 % (0-1.5)
[2022-08-25 00:04] LABS: Albumin 2.5 g/dL (3.4-5.0); Bilirubin Total 0.2 mg/dL (0.2-1.0); Protein, Total 6.8 g/dL (6.4-8.2)
[2022-08-25 00:12] LABS: Blood Morphology Comment NOT SEEN (NOT SEEN); Platelet Estimate ADEQ
[2022-08-25 00:14] LABS: Potassium 4.3 mmol/L (3.5-5.1)
[2022-08-25 00:15] LABS: Magnesium 2.4 mg/dL (1.6-2.4); Troponin High Sensitivity 315.1 pg/mL (<58.9)
[2022-08-25] MEDS: IPRATROPIUM BROM 0.5MG/2.5ML NEB SCH ×4 (01:15→20:00)
[2022-08-25 03:46] LABS: Absolute Lymphocytes (CBC) 0.3 K/uL (0.7-4.9); Hematocrit 28.9 % (36.0-45.0); Lymphocytes % 3.1 % (15.3-44.8); MCV 98.5 fL (80-100); MPV 8.1 fL (7.6-11.3); RBC Red Blood Cell Count 2.93 M/uL (3.86-4.86)
[2022-08-25 04:07] LABS: Potassium 4.1 mmol/L (3.5-5.1)
[2022-08-25] MEDS: D5 0.45 NS 1,000 ML IV SCH ×3 (06:00→16:00)
[2022-08-25] MEDS: INSULIN -REGULAR HUMAN 50 UNIT/0.5 ML ML SQ SCH ×4 (07:30→20:15)
[2022-08-25] MEDS: FUROSEMIDE 20 MG/ 2ML VIAL IV SCH (08:29)
[2022-08-25] MEDS: ASPIRIN EC 81 MG TAB PO SCH (08:30)
[2022-08-25] MEDS: predniSONE 20 MG TAB PO SCH (08:30)
[2022-08-25] MEDS: METOPROLOL TAR 25 MG TAB PO SCH (08:31)
[2022-08-25] MEDS: HOME MED 1 EA UNK (Fluticasone/Umeclidin/Vilanter [Trelegy Ellipta 100-62.5-25] Blst.W.Dev IH SCH (08:31)
[2022-08-25] MEDS: APIXABAN 5 MG TABLET PO SCH ×2 (08:31→20:15)
[2022-08-25] MEDS: VARENICLINE TARTRATE 1 MG PO SCH (08:31)
[2022-08-25] MEDS: ALBUTEROL 2.5 MG/3 ML NEB SOL NEB PRN (09:00)
[2022-08-25] MEDS ORDERED: HOME MED 1 EA UNK (Olanzapine [Olanzapine] 5 MG Tablet) PO SCH (09:00)
[2022-08-25] MEDS ORDERED: OLANZapine 2.5 MG TAB PO SCH (09:00)
[2022-08-25] MEDS ORDERED: DULOXETINE 30 MG CAP PO SCH (09:00)
--- NOTE | 2022-08-25 09:55 | RAD REPORT ---
EXAM DESCRIPTION: RAD - Chest Single View - 08/25/2022 9:34 am CLINICAL HISTORY: R/o Pulmonary edema COMPARISON: Chest Single View dated 08/23/2022; Chest Single View dated 03/25/2022; Chest Single View dated 11/22/2021; Chest Single View dated 04/28/2021; Chest Angio dated 08/23/2022 FINDINGS: Lines: None. Lungs: Mild improved bilateral reticulonodular airspace disease. Pleural: No significant pleural effusions or pneumothorax. Cardiac: The heart size is within normal limits. Mediastinum: Within normal limits. Bones: No acute fractures. Other: Sternotomy. IMPRESSION: Reticulonodular airspace disease bilaterally demonstrating mild improvement compared wit h 08/23/2022.
[2022-08-25] MEDS: Levofloxacin 750mg IV 750 MG/150 ML BAG IV SCH (13:43)
[2022-08-25] MEDS: MORPHINE 2 MG/ML SYR IV PRN ×2 (14:22→20:14)
--- NOTE | 2022-08-25 14:56 | P.PN ---
Subjective Date of Service: 08/25/22 Chief Complaint: Resp distress Per report, patient became unresponsive yesterday and required BiPAP overnight. AMS likely secondary to her home psychotropic medication which includes [place], gabapentin and Zyprexa. Mental status improved this morning, patient weaned off BiPAP. No recorded fever. Physical Examination - Vital Signs Temperature: 97.9 F Blood Pressure: 115/55 Pulse: 104 Respirations: 20 Pulse Ox (%): 95 - Physical Exam General: Oriented x2 (Person and place) HEENT: Mucous membr. moist/pink Neck: JVD not distended Respiratory: Normal air movement, Other (Mild bibasilar [place]) Cardiovascular: No edema, Normal S1 S2, Other (Tachycardia) Gastrointestinal: Soft and benign, Non-distended Musculoskeletal: No swelling Integumentary: No rashes, No cyanosis Neurological: Other (No focal motor deficit) Assessment And Plan - Current Problems (Diagnosis) (1) COPD exacerbation Current Visit: Yes Status: Acute (2) Acute on chronic diastolic heart failure Current Visit: Yes Status: Acute (3) Elevated troponin Current Visit: Yes Status: Acute - Plan Seen by cardiology, CHF suspected and patient being treated with IV Lasix. Elevated troponin deemed secondary to demand ischemia. Her oral intake has been poor and she is on maintenance IV fluid to avoid dehydration. Continue bronchodilators and steroid for COPD exacerbation. IV Levaquin for pulmonary infectious process. Currently n.p.o. due to AMS. IV metoprolol as needed for rapid heart rate. A. fib spontaneously converted to sinus tachycardia. Continue Eliquis Echocardiogram is pending. Hold all psychotropic medications-gabapentin, Zyprexa, duloxetine. IV morphine as needed for pain. Serial chest x-ray to monitor resolution of lung opacities. Lymphangitic carcinomatosis not excluded. DVT prophylaxis: Eliquis CODE STATUS: Son confirmed full code for now.
--- NOTE | 2022-08-25 16:01 | P.PN ---
Subjective Date of Service: 08/26/22 Chief Complaint: Resp distress Patient's condition is deteriorating becoming more unresponsive very hypercapnic not eating and drinking much Review of Systems is unable to be obtained Physical Examination - Vital Signs Temperature: 97.9 F Blood Pressure: 115/55 Pulse: 104 Respirations: 20 Pulse Ox (%): 95 - Physical Exam General: Unresponsive Respiratory: Clear to auscultation bilaterally, Diminished Cardiovascular: Regular rate/rhythm, Edema Assessment And Plan - Current Problems (Diagnosis) (1) COPD exacerbation Current Visit: Yes Status: Acute Plan: Patient admitted with hypercapnic hypoxic respiratory failure also has a history of lung cancer is now full code mildly anemic normal white count labs reviewed patient admitted with A. fib seen by cardiology DC diuretics for now labs reviewed
[2022-08-25] MEDS: METHYLPREDNISOLONE 40 MG INJ IV SCH (16:07)
[2022-08-25] MEDS: ONDANSETRON 4 MG/2 ML VIAL IV PRN (20:14)
[2022-08-25] MEDS: THIAMINE 200 MG/2 ML INJ IVP SCH (20:14)
--- NOTE | 2022-08-25 20:45 | PN ---
Date of Progress Note: 08/25/2022 Subjective: Seen by bedside. She is still wheezing and short of breath, but heart rate has improved . Review of Systems: No chest pain, but she is short of breath and lethargic, could not get any further history from her. Physical Examination: Vital Signs: Temperature is 97.9, pulse between 98 and 104, breathing at 20, blood pressure 115/55, saturating 95%. General: This is a middle-aged female, in no apparent distress. Head and Neck: Pupils are equal, reactive to light. Intact eye movements. No JVD. No cervical lym phadenopathy. Neck is supple. Thyroid is not enlarged. Lungs: Diffuse wheezing bilaterally with improvement. Heart: Irregularly irregular. No extra sounds. Abdomen: Soft, nontender. Bowel sounds positive. No organomegaly. No masses or hernia. No rigidi ty or rebound. Extremities: No clubbing or cyanosis. Intact pulses. Skin: No rash. Neurologic: She is lethargic, but moving all extremities. Lymph nodes: No cervical or axillary lymphadenopathy. Investigations: BUN is 34, creatinine 0.92. Assessment/recommendations: 1.Elevated troponins are likely demand ischemia; however, there is only one set ordered, so we will obtain another troponin and further recommendations accordingly. 2.Atrial fibrillation with rapid ventricular response. She is getting controlled on amiodarone. Co ntinue amiodarone drip. Once the 24-hour load is finished, then switch it to oral 200 mg twice a day . She can take medications by mouth to keep her on 0.5 mg/minute for now and carefully monitor liver function tests. 3.Severe chronic obstructive pulmonary disease exacerbation, requiring intermittent BiPAP. 4.Congestive heart failure exacerbation and unknown ejection fraction. We will obtain an echo and f urther recommendations accordingly. In the meanwhile, continue very low Lasix dose intravenously 20 mg q.12 hours and she is doing better on that. SR/MODL Voice ID: [id number] Report ID: [id number]
[2022-08-26] MEDS ORDERED: LORazepam 2 MG/ML VIAL IV ONE ×2 (00:48→21:57)
[2022-08-26] MEDS: METHYLPREDNISOLONE 40 MG INJ IV SCH ×3 (00:59→17:04)
[2022-08-26] MEDS: IPRATROPIUM BROM 0.5MG/2.5ML NEB SCH ×4 (01:25→20:40)
[2022-08-26 03:28] LABS: Absolute Lymphocytes (CBC) 0.3 K/uL (0.7-4.9); Hematocrit 30.6 % (36.0-45.0); Lymphocytes % 3.9 % (15.3-44.8); MPV 7.9 fL (7.6-11.3); RBC Red Blood Cell Count 3.12 M/uL (3.86-4.86)
[2022-08-26] MEDS: MORPHINE 2 MG/ML SYR IV PRN ×2 (03:59→11:35)
[2022-08-26] MEDS: D5 0.45 NS 1,000 ML IV SCH ×2 (04:09→18:13)
[2022-08-26 04:13] LABS: Potassium 4.2 mmol/L (3.5-5.1)
[2022-08-26] MEDS: VARENICLINE TARTRATE 1 MG PO SCH (09:00)
[2022-08-26] MEDS: HOME MED 1 EA UNK (Fluticasone/Umeclidin/Vilanter [Trelegy Ellipta 100-62.5-25] Blst.W.Dev IH SCH (09:00)
[2022-08-26] MEDS: ASPIRIN EC 81 MG TAB PO SCH (09:00)
[2022-08-26] MEDS: APIXABAN 5 MG TABLET PO SCH ×2 (09:00→20:07)
[2022-08-26] MEDS: INSULIN -REGULAR HUMAN 50 UNIT/0.5 ML ML SQ SCH ×4 (09:10→20:08)
[2022-08-26] MEDS: THIAMINE 200 MG/2 ML INJ IVP SCH ×2 (09:11→20:08)
[2022-08-26] MEDS ORDERED: MORPHINE 2 MG/ML SYR IV ONE (09:30)
[2022-08-26 11:16] LABS: Arterial Blood Carboxyhemoglob 1.2 % (0-1.5); Blood Gas Oxyhemoglobin 88.4 % (94-97); Blood O2 Saturation 90.6 % (92-98.5)
[2022-08-26] MEDS: ONDANSETRON 4 MG/2 ML VIAL IV PRN ×2 (11:35→20:09)
[2022-08-26] MEDS: Levofloxacin 750mg IV 750 MG/150 ML BAG IV SCH (13:16)
--- NOTE | 2022-08-26 14:32 | P.PN ---
Subjective Date of Service: 08/26/22 Chief Complaint: Resp distress Patient remained confused but overall patient is more interactive compared to yesterday. She has been moaning constantly. No recorded fever. Physical Examination - Vital Signs Temperature: 97.9 F Blood Pressure: 115/55 Pulse: 104 Respirations: 20 Pulse Ox (%): 91 - Physical Exam General: Confused HEENT: Mucous membr. moist/pink Neck: JVD not distended Respiratory: Clear to auscultation bilaterally, Normal air movement Cardiovascular: Normal S1 S2, Irregular heart rate/rhythm Gastrointestinal: Normal bowel sounds, Soft and benign, Non-distended, No tenderness Musculoskeletal: No swelling Integumentary: No rashes Neurological: Other (No focal motor deficit) Assessment And Plan - Current Problems (Diagnosis) (1) COPD exacerbation Current Visit: Yes Status: Acute (2) Acute on chronic diastolic heart failure Current Visit: Yes Status: Acute (3) Elevated troponin Current Visit: Yes Status: Acute - Plan Seen by cardiology, CHF suspected and patient being treated with IV Lasix. Elevated troponin deemed secondary to demand ischemia. Her oral intake has been poor and she is on maintenance IV fluid to avoid dehydration. Continue bronchodilators and steroid for COPD exacerbation. Continue IV Levaquin for pulmonary infectious process. Pulmonary input appreciated. Repeat arterial blood gas shows improvement in pH and PCO2. Resume diet as tolerated. Amiodarone drip was ordered but patient did not receive it. She remained in A. fib but heart rate is in the low 100s. A. fib spontaneously converted to sinus tachycardia. Continue Eliquis. Oral metoprolol. Echocardiogram is pending. Hold psychotropic medications-gabapentin, Zyprexa, duloxetine. IV morphine as needed for pain. Resume oral [place]. Lymphangitic carcinomatosis not excluded. Repeat chest x-ray shows some improvement in the pulmonary opacities. DVT prophylaxis: Eliquis CODE STATUS: Son confirmed full code for now.
[2022-08-26] MEDS: MORPHINE 4 MG/ML SYR IV PRN ×2 (14:58→20:08)
--- NOTE | 2022-08-26 16:47 | PN ---
Date of Progress Note: 08/26/2022 Subjective: Seen by bedside. Clinically doing better. Very gradual improvement. Review of Systems: No chest pain, but she has shortness of breath and wheezing. Confused. No dysuria, polyuria, or uri nary urgency. All other systems reviewed and they were negative. Physical Examination: Vital Signs: Reviewed. Head and Neck: Pupils are equal, reactive to light. Intact eye movements. No JVD. No cervical lym phadenopathy. Neck is supple. Thyroid is not enlarged. Lungs: Diffuse rhonchi bilaterally with wheezing that has improved. No accessory muscle use or musc le retraction. Heart: Irregularly irregular. No extra sounds. Abdomen: Soft, nontender. Bowel sounds positive. No organomegaly. No masses or hernia. No rigidi ty or rebound. Extremities: No clubbing or cyanosis. Intact pulses. Skin: No rash. Neurologic: Alert, but with confusion. No acute focal deficits appreciated. Investigations: BUN 31, creatinine 0.79 and troponin is 222 which is trending down from the previous troponin. Assessment And Recommendations: 1.Atrial fibrillation, rate is controlled now. Switch amiodarone to oral 200 mg twice a day and dis continue IV amiodarone and continue Eliquis. If the patient cannot swallow medications by mouth due to mental status, then keep her on 0.5 mg/minute infusion and monitor liver function tests on daily b asis. 2.Elevated troponin. This is trending down. This is likely demand. We will monitor. SR/MODL Voice ID: [id number] Report ID: [id number]
[2022-08-27] MEDS: METHYLPREDNISOLONE 40 MG INJ IV SCH ×2 (00:43→07:35)
[2022-08-27] MEDS: IPRATROPIUM BROM 0.5MG/2.5ML NEB SCH ×4 (02:10→20:40)
[2022-08-27] MEDS: MORPHINE 4 MG/ML SYR IV PRN ×4 (03:49→22:02)
[2022-08-27 04:12] LABS: Absolute Lymphocytes (CBC) 0.4 K/uL (0.7-4.9); Hematocrit 30.9 % (36.0-45.0); Lymphocytes % 4.9 % (15.3-44.8); MCV 98.5 fL (80-100); RBC Red Blood Cell Count 3.14 M/uL (3.86-4.86)
[2022-08-27 04:41] LABS: Albumin 2.8 g/dL (3.4-5.0); Bilirubin Total 0.3 mg/dL (0.2-1.0); Potassium 4.7 mmol/L (3.5-5.1); Protein, Total 6.6 g/dL (6.4-8.2)
[2022-08-27] MEDS: D5 0.45 NS 1,000 ML IV SCH ×2 (05:22→20:02)
[2022-08-27] MEDS: HOME MED 1 EA UNK (Fluticasone/Umeclidin/Vilanter [Trelegy Ellipta 100-62.5-25] Blst.W.Dev IH SCH (07:36)
[2022-08-27] MEDS: ASPIRIN EC 81 MG TAB PO SCH (07:36)
[2022-08-27] MEDS: APIXABAN 5 MG TABLET PO SCH ×2 (07:36→20:02)
[2022-08-27] MEDS: THIAMINE 200 MG/2 ML INJ IVP SCH ×2 (07:36→20:02)
[2022-08-27] MEDS: VARENICLINE TARTRATE 1 MG PO SCH (07:37)
[2022-08-27] MEDS: INSULIN -REGULAR HUMAN 50 UNIT/0.5 ML ML SQ SCH ×4 (07:41→20:02)
[2022-08-27] MEDS: ONDANSETRON 4 MG/2 ML VIAL IV PRN (07:42)
[2022-08-27] MEDS ORDERED: INSULIN GLARGINE 100 UNIT/ML SQ ONE (10:39)
[2022-08-27] MEDS: Levofloxacin 750mg IV 750 MG/150 ML BAG IV SCH (12:37)
[2022-08-27] MEDS ORDERED: LORazepam 2 MG/ML VIAL IV ONE (14:10)
[2022-08-27 15:22] LABS: Specific Gravity 1.015 (1.005-1.030); Urine Bacteria None Seen /HPF (<20); Urine Bilirubin NEGATIVE (Negative); Urine Blood Trace (Negative); Urine Clarity Clear (Clear); Urine Color Light-Yellow (Yellow); Urine Crystals Unidentified Few /HPF (None Seen); Urine Glucose NEGATIVE (Negative); Urine Mucus Slight /HPF (None Seen); Urine Protein TRACE (Negative); Urine Urobilinogen Normal (Normal)
--- NOTE | 2022-08-27 15:24 | P.PN ---
Subjective Date of Service: 08/27/22 Chief Complaint: Resp distress Patient remain confused. Her moaning has improved with IV morphine No recorded fever. Physical Examination - Vital Signs Temperature: 97.2 F Blood Pressure: 128/73 Pulse: 116 Respirations: 20 Pulse Ox (%): 99 - Physical Exam General: Confused HEENT: Mucous membr. moist/pink Neck: JVD not distended Respiratory: Diminished Cardiovascular: No edema, Normal S1 S2, Other (Tachycardia) Gastrointestinal: Soft and benign, Non-distended, No tenderness Musculoskeletal: No swelling Integumentary: No cyanosis Neurological: Other (No focal motor deficit) Assessment And Plan - Current Problems (Diagnosis) (1) COPD exacerbation Current Visit: Yes Status: Acute (2) Acute on chronic diastolic heart failure Current Visit: Yes Status: Acute (3) Elevated troponin Current Visit: Yes Status: Acute - Plan Seen by cardiology, CHF suspected and patient being treated with IV Lasix. Elevated troponin deemed secondary to demand ischemia. Patient refuses to eat and she is on maintenance IV fluid to avoid dehydration. Continue bronchodilators and steroid for COPD exacerbation. Not sure if IV steroid(steroid psychosis) is contributing to the altered mental status. Continue IV Levaquin for pulmonary infectious process. Repeat arterial blood gas shows significant improvement in PCO2, pH is almost normal. UA and urine culture are pending. Amiodarone drip was ordered but patient did not receive it. A. fib spontaneously converted to sinus tachycardia and remained in sinus tachycardia. Continue Eliquis. Oral metoprolol. Amiodarone not given. Echocardiogram was canceled for unknown reason. Continue to hold psychotropic medications-gabapentin, Zyprexa, duloxetine. IV morphine and oral [place] as needed for pain. Lymphangitic carcinomatosis not excluded. Repeat chest x-ray shows some improvement in the pulmonary opacities. Case discussed with neurology who recommended MRI to rule out a paraneoplastic process causing altered mental status. Family requested transfer to [facility]. Transfer initiated per ER request. DVT prophylaxis: Eliquis CODE STATUS: Full code.
--- NOTE | 2022-08-27 15:52 | RAD REPORT ---
EXAM DESCRIPTION: MRI - Brain W/Wo Cont - 08/27/2022 3:38 pm CLINICAL HISTORY: Lung cancer with confusion COMPARISON: head CT TECHNIQUE: Axial, sagittal, and coronal magnetic images of the brain were obtained. 12 cc MultiHance administered intravenously FINDINGS: Images are degraded by patient motion artifact. Mild signal within periventricular and deep white matter probably ischemic changes secondary to smal l vessel disease 12 millimeter area of increased signal white matter left frontal lobe does not exhibit enhancement an d may represent an old small infarction. The ventricles are normal in caliber. Diffusion-weighted/ ADC mapping sequences do not demonstrate evidence of an acute infarction. No abnormal enhancement within the brain is seen. An extra-axial fluid collection is not noted. Fluid within the sinuses/mastoids is not seen IMPRESSION: No evidence of metastatic disease Examination is somewhat suboptimal
[2022-08-27] MEDS: FLUCONAZOLE 200mg IVPB 200 MG/100 ML BAG IV SCH (18:14)
[2022-08-28] MEDS: MORPHINE 4 MG/ML SYR IV PRN ×2 (01:48→05:55)
[2022-08-28] MEDS: IPRATROPIUM BROM 0.5MG/2.5ML NEB SCH ×4 (02:30→23:15)
[2022-08-28 04:17] LABS: Absolute Lymphocytes (CBC) 0.9 K/uL (0.7-4.9); Hematocrit 31.5 % (36.0-45.0); Lymphocytes % 7.8 % (15.3-44.8); MCV 99.2 fL (80-100); MPV 7.9 fL (7.6-11.3); RBC Red Blood Cell Count 3.18 M/uL (3.86-4.86)
[2022-08-28 04:33] LABS: Potassium 4.3 mmol/L (3.5-5.1)
[2022-08-28] MEDS: D5 0.45 NS 1,000 ML IV SCH (06:31)
[2022-08-28] MEDS: INSULIN -REGULAR HUMAN 50 UNIT/0.5 ML ML SQ SCH ×4 (07:30→19:20)
[2022-08-28] MEDS: HOME MED 1 EA UNK (Fluticasone/Umeclidin/Vilanter [Trelegy Ellipta 100-62.5-25] Blst.W.Dev IH SCH (08:38)
[2022-08-28] MEDS: VARENICLINE TARTRATE 1 MG PO SCH (08:39)
[2022-08-28] MEDS: APIXABAN 5 MG TABLET PO SCH ×2 (09:00→20:35)
[2022-08-28] MEDS: ASPIRIN EC 81 MG TAB PO SCH (09:00)
[2022-08-28] MEDS: THIAMINE 200 MG/2 ML INJ IVP SCH ×2 (09:35→21:24)
--- NOTE | 2022-08-28 11:18 | P.PN ---
Subjective Date of Service: 08/28/22 Chief Complaint: Respiratory failure with altered mental status Patient's condition is not improving she continues to remain altered tachypneic Review of Systems is unable to be obtained Physical Examination - Vital Signs Temperature: 97.8 F Blood Pressure: 138/73 Pulse: 114 Respirations: 18 Pulse Ox (%): 99 - Physical Exam General: Delirious Respiratory: Clear to auscultation bilaterally, Diminished Cardiovascular: No edema, Normal pulses Assessment And Plan - Current Problems (Diagnosis) (1) COPD exacerbation Current Visit: Yes Status: Acute Plan: Patient has terminal COPD hypoxic hypercapnic respiratory failure not eating and drinking needed [place] or PPN for now remembers requesting transfer to a tertiary care center appears to have mostly COPD may have underlying pneumonia labs reviewed prognosis very poor family members revoked DNR patient was here alert responsive she did not want to be intubated oxygenation satisfactory
[2022-08-28] MEDS: Levofloxacin 750mg IV 750 MG/150 ML BAG IV SCH (12:26)
[2022-08-28 13:04] LABS: Arterial Blood Carboxyhemoglob 1.1 % (0-1.5); Blood Gas Oxyhemoglobin 89.7 % (94-97); Blood O2 Saturation 91.9 % (92-98.5)
--- NOTE | 2022-08-28 13:59 | P.PN ---
Subjective Date of Service: 08/28/22 Chief Complaint: Respiratory failure with altered mental status Patient remain confused. She was on BiPAP all night. She was transitioned to oxygen by nasal cannula at this morning. She continues to moan. She opens her eyes to verbal, and intermittently nod to questions but refuses to eat. Physical Examination - Vital Signs Temperature: 97.7 F Blood Pressure: 163/87 Pulse: 113 Respirations: 18 Pulse Ox (%): 94 - Physical Exam General: Confused Neck: JVD not distended Respiratory: Diminished (Bilateral) Cardiovascular: No edema, Other (Tachycardic) Gastrointestinal: Normal bowel sounds, Soft and benign, Non-distended, No tenderness Musculoskeletal: No swelling Integumentary: No cyanosis Neurological: Other (No focal motor deficit) - Studies Microbiology Data (last 24 hrs): 08/23/22 13:05 Blood - Blood Aerobic Blood Culture - Final No growth in 5 days. 08/23/22 13:05 Blood - Blood Anaerobic Blood Culture - Final No growth in 5 days. Assessment And Plan - Current Problems (Diagnosis) (1) COPD exacerbation Current Visit: Yes Status: Acute (2) Acute on chronic diastolic heart failure Current Visit: Yes Status: Acute (3) Elevated troponin Current Visit: Yes Status: Acute (4) Metabolic encephalopathy Current Visit: Yes Status: Acute (5) Lung cancer Current Visit: No Status: Acute Qualifiers: Laterality: left Lung location: upper lobe of lung Qualified Code(s): C34.12 - Malignant neoplasm of upper lobe, left bronchus or lung (6) Diabetes mellitus type 2 in nonobese Current Visit: Yes Status: Acute - Plan Seen by cardiology, CHF suspected and patient treated with IV Lasix. Patient with poor oral intake. Lasix discontinued/ Elevated troponin deemed secondary to demand ischemia. Patient refuses to eat and she is on maintenance IV fluid to avoid dehydration. Continue bronchodilators and steroid for COPD exacerbation. Not sure if IV steroid(steroid psychosis) is contributing to the altered mental status. IV steroid discontinued. Continue IV Levaquin for pulmonary infectious process. Repeat arterial blood gas today shows significant PCO2 retention, pH is almost normal. UA and urine culture do not suggest UTI Amiodarone drip was ordered but patient did not receive it. A. fib spontaneously converted to sinus tachycardia and remained in sinus tachycardia. Continue Eliquis. Oral metoprolol. Amiodarone not given. Trial of BiPAP for several hours for target PCO2 of less than 45 to see if her mental status will improve significantly with this measure. Echocardiogram was canceled for unknown reason. Case discussed with neurology who recommended MRI to rule out a paraneoplastic process causing altered mental status. MRI of the brain shows no acute disease. Continue to hold psychotropic medications-gabapentin, Zyprexa, duloxetine. I suspect patient moaning is related to delirium rather than pain, or may be overexpression of her symptoms. She still moans regardless of IV morphine administration. Hold opioids Lymphangitic carcinomatosis not excluded. Repeat chest x-ray shows some improvement in the pulmonary opacities. Family requested transfer to [facility]. Transfer initiated per ER request. NG tube for feeding if patient mental status does not improve with BiPAP therapy. Pulmonary input appreciated. DVT prophylaxis: Eliquis CODE STATUS: Full code.
[2022-08-28 14:05] VITALS: O2SAT 95
[2022-08-28] MEDS: FLUCONAZOLE 200mg IVPB 200 MG/100 ML BAG IV SCH (17:23)
[2022-08-28 17:46] LABS: Arterial Blood Carboxyhemoglob 1.3 % (0-1.5); Blood Gas Oxyhemoglobin 92.2 % (94-97); Blood O2 Saturation 94.4 % (92-98.5)
[2022-08-28] MEDS: ONDANSETRON 4 MG/2 ML VIAL IV PRN ×2 (18:16→23:59)
[2022-08-28 19:44] VITALS: BP 164/84; TEMP 98.1
[2022-08-28] MEDS ORDERED: ACETAMINOPHEN 160 MG/5 ML UCUP PO ONE (20:13)
[2022-08-28] MEDS ORDERED: KETOROLAC 30 MG/ML INJ IV ONE (21:22)
[2022-08-28] MEDS: HYDROCODONE/APAP 10/325 TAB PO PRN (21:24)
[2022-08-28] MEDS ORDERED: MORPHINE 2 MG/ML SYR IV ONE (23:06)
[2022-08-28] MEDS ORDERED: MORPHINE 2 MG/ML SYR ONE (23:16)
--- NOTE | 2022-08-29 17:30 | P.DS ---
Admission Date: 08/23/22 Discharge Date: 08/28/22 Disposition: TRANSFER TO [facility] Discharge Condition: GOOD Reason for Admission: Respiratory failure with altered mental status - Problems (1) COPD exacerbation Status: Acute (2) Acute on chronic diastolic heart failure Status: Acute (3) Elevated troponin Status: Acute (4) Metabolic encephalopathy Status: Acute (5) Lung cancer Status: Acute Qualifiers: Laterality: left Lung location: upper lobe of lung Qualified Code(s): C34.12 - Malignant neoplasm of upper lobe, left bronchus or lung (6) Diabetes mellitus type 2 in nonobese Status: Acute Brief History of Present Illness: Pt is 62 yrs of age HX of lung cancer Tx at [facility] status post chemorad and now on immunotherapy, history of COPD, non-smoker presented to the emergency department with progressive shortness of breath of 1 week duration. Blood work showed leukocytosis, hyponatremia and elevated troponin. CTA thorax done in the ED showed . Worsening nodularity and micronodularity bilaterally, right greater than left which could reflect an inflammatory or infectious etiology such as a viral pneumonia or other atypical sources. Patient admitted for further management. Hospital Course: Patient admitted to the medical floor and treated for COPD exacerbation. She later became obtunded as a result of restarting her home pain medications. Patient required BiPAP for CO2 retention. She was seen by cardiology, CHF suspected and patient treated with IV Lasix. Patient with poor oral intake. Lasix was later discontinued Elevated troponin deemed secondary to demand ischemia. Patient refused to eat and and was put on maintenance IV fluid to avoid dehydration. She was treated with bronchodilators and steroid for COPD exacerbation and steroid later discontinued due to persistence altered mental status. She was treated with IV Levaquin for pulmonary infectious process. Serial arterial blood gas today showed significant PCO2 retention and patient was eventually put on BiPAP therapy again. UA and urine culture did not suggest UTI. She developed brief atrial fibrillation which spontaneously converted to sinus tachycardia and remained in sinus tachycardia. Continued Eliquis. Patient was maintained on oral metoprolol. Amiodarone was not given. Case discussed with neurology who recommended MRI to rule out a paraneoplastic process causing altered mental status. MRI of the brain shows no acute disease. Continue to hold psychotropic medications-gabapentin, Zyprexa, duloxetine. Lymphangitic carcinomatosis not excluded. Repeat chest x-ray showed some improvement in the pulmonary opacities. Family requested transfer to [facility]. Transfer initiated per ER request. Patient accepted for transfer. Patient currently stable on oxygen by nasal cannula. Vitals are stable for transfer. Vital Signs/Physical Exam: Temp Pulse Resp BP Pulse Ox 98.1 F 120 H 18 164/84 H 93 08/28/22 19:43 08/28/22 19:43 08/28/22 22:24 08/28/22 19:43 08/28/22 22:24 General: Confused HEENT: Mucous membr. moist/pink Neck: JVD not distended Respiratory: Clear to auscultation bilaterally, Normal air movement Cardiovascular: No edema, Other (Tachycardia) Gastrointestinal: Normal bowel sounds, Soft and benign Musculoskeletal: No swelling Integumentary: No rashes, No cyanosis Neurological: Normal strength at 5/5 x4 extr Laboratory Data at Discharge: WBC Cancelled 08/29/22 05:00 Hgb Cancelled 08/29/22 05:00 Hct Cancelled 08/29/22 05:00 Plt Count Cancelled 08/29/22 05:00 PT 12.8 SECONDS (9.5-12.5) H 08/23/22 13:05 INR 1.16 08/23/22 13:05 Sodium Cancelled 08/29/22 05:00 Potassium Cancelled 08/29/22 05:00 BUN Cancelled 08/29/22 05:00 Creatinine Cancelled 08/29/22 05:00 Glucose Cancelled 08/29/22 05:00 Magnesium 2.4 mg/dL (1.6-2.4) 08/24/22 23:07 Total Bilirubin 0.3 mg/dL (0.2-1.0) 08/27/22 03:33 AST 7 U/L (15-37) L 08/27/22 03:33 ALT 19 U/L (13-56) 08/27/22 03:33 Alkaline Phosphatase 79 U/L (45-117) 08/27/22 03:33 Triglycerides 155 mg/dL (<150) H 08/24/22 02:31 Cholesterol 176 mg/dL (<200) 08/24/22 02:31 HDL Cholesterol 33 mg/dL (40-60) L 08/24/22 02:31 Cholesterol/HDL Ratio 5.33 08/24/22 02:31 Home Medications: Aspirin [Adult Aspirin] 81 mg PO DAILY 10/06/18 Gabapentin [Neurontin] 800 mg PO QID 10/06/18 Metoprolol Tartrate [Lopressor*] 25 mg PO BID #60 tab 10/09/18 Albuterol Neb [Proventil 0.083% Neb Soln] 2.5 mg IH PRN PRN 03/22/22 Duloxetine [Cymbalta Dalayed Release Pellets] 60 mg PO DAILY 03/22/22 Fluticasone/Umeclidin/Vilanter [Trelegy Ellipta 100-62.5-25] 1 each IH DAILY 03/22/22 Hydrocodone Bit/Acetaminophen [Hydrocodon-Acetaminophn 10-325] 1 tab PO PRN PRN 03/22/22 OLANZapine [Olanzapine] 5 mg PO DAILY 03/22/22 Varenicline Tartrate [Chantix] 150 mg PO DAILY 03/22/22 clonazePAM [Clonazepam] 2 mg PO PRN PRN 03/22/22 ondansetron HCL [Ondansetron HCl] 8 mg PO PRN 03/22/22 Followup: NONE,NONE [Primary Care Provider] - Time spent managing pt's care (in minutes): 37
== END 2022-08-29 00:09 | disposition short-term general hospital (02) | DRG 871 ==
LOC: ER 11:48 → ERHOLD 13:50 → 4TH 20:49
PROVIDERS: ADMIT Internal Medicine Sleep Medicine; ATTEND Internal Medicine
PROC: 5A09457 Assistance with Respiratory Ventilation, 24-96 Consecutive Hours, Continuous Positive Airway Pressure (ICD-10-PCS; principal; 2022-08-26)
DX: A41.9 Sepsis, unspecified organism (principal); G93.41 Metabolic encephalopathy; I50.33 Acute on chronic diastolic (congestive) heart failure; J96.21 Acute and chronic respiratory failure with hypoxia; J96.22 Acute and chronic respiratory failure with hypercapnia; J18.9 Pneumonia, unspecified organism; I47.1 Supraventricular tachycardia; J44.1 Chronic obstructive pulmonary disease with (acute) exacerbation; E87.20 Acidosis, unspecified; C34.12 Malignant neoplasm of upper lobe, left bronchus or lung; F05 Delirium due to known physiological condition; E87.1 Hypo-osmolality and hyponatremia; I24.8 Other forms of acute ischemic heart disease; J44.0 Chronic obstructive pulmonary disease with (acute) lower respiratory infection; R65.20 Severe sepsis without septic shock; I11.0 Hypertensive heart disease with heart failure; G89.29 Other chronic pain; M54.9 Dorsalgia, unspecified; D64.9 Anemia, unspecified; E11.9 Type 2 diabetes mellitus without complications; I48.91 Unspecified atrial fibrillation; I25.10 Atherosclerotic heart disease of native coronary artery without angina pectoris; F17.210 Nicotine dependence, cigarettes, uncomplicated; Z66 Do not resuscitate; Z95.1 Presence of aortocoronary bypass graft; Z88.8 Allergy status to other drugs, medicaments and biological substances; Z79.82 Long term (current) use of aspirin; Z90.49 Acquired absence of other specified parts of digestive tract; Z79.899 Other long term (current) drug therapy; Z20.822 Contact with and (suspected) exposure to COVID-19
CPT/HCPCS: 0240U; 36415; 70553; 71045; 71275; 80048; 80053; 80061; 80076; 81001; 82140; 82805; 82947; 83605; 83735; 83880; 84443; 84484; 85025; 85610; 87040; 87086; 87088; 93005; 94660; 94760; 99285; A9577; J0282; J1100; J1160; J1450; J1815; J1940; J2270; J2310; J2405; J2920; J3411; J7030; J7060; J7512; J7613; J7644; J7799; Q0162; Q9967